=== PATIENT | male | born 1960 | race Caucasian/White ===

== ENCOUNTER 2019-06-20 12:23 | Inpatient (IN) | payer OTHER, SELFPAY ==
[2019-06-20] VITALS (12 sets, daily range): BP systolic 104–141; BP diastolic 58–88; PULSE 55–110; RESP 12–22; TEMP 36.7–39.1; O2SAT 90–97; BMI 31.8; BMI 32.9
[2019-06-20] MEDS: 0.9% Normal Saline 1,000 ML 1000 ML IV (13:15)
[2019-06-20] MEDS: Ondansetron 4 MG/2 ML Vial IV (13:15)
[2019-06-20] MEDS: HYDROmorphone 1 MG/ML Syringe IV (13:15)
[2019-06-20 13:30] LABS: Absolute Lymphocyte Count 0.77 X10^3/uL (0.83-4.51); Absolute Neutrophil Count 10.4 X10^3/uL (2.0-7.7); Basophil# 0.02 X10^3/uL; Basophil% 0.2 % (0-1); Eosinophils% 0.9 % (0-5); Hematocrit 44.8 % (40-54); Hemoglobin 15.2 g/dL (13.0-16.5); Lymphocyte # 0.77 X10^3/ul (4.0); Lymphocyte % 6.6 % (19-41); Mean Corp Hgb Conc 33.9 g/dL (32-36); Mean Corpuscular Hgb 31.7 pg (27.0-32.0); Mean Corpuscular Volume 93.5 fL (80-94); Mean Platelet Vol. 10.7 fl (6.2-12.0); Monocyte# 0.25 X10^3/uL; Monocyte% 2.1 % (0-10); NRBC Flagged by Analyzer 0 % (0-5); Neutrophil # 10.38 X10^3/uL (2.7-7.7); Neutrophil % 89.1 % (47-70); POSITIVE MORPHOLOGY YES; Platelet Count 207 K/mm3 (150-450); RBC Distribution Width CV 13.7 % (11.6-14.6); RBC Distribution Width SD 46.5 fl (35.1-43.9); Red Blood Count 4.79 M/mm3 (4.6-6.2); White Blood Count 11.7 K/mm3 (4.4-11.0)
[2019-06-20 13:34] LABS: AST(SGOT) 26 U/L (15-37); Alanine Aminotransfer ALT/SGPT 37 U/L (16-61); Albumin, Serum 3.7 g/dL (3.2-5.0); Alkaline Phosphatase 84 U/L (45-117); Anion Gap 7 (5-15); BUN 11 mg/dL (7-18); BUN/Creat Ratio 10.8 RATIO (10-20); Bilirubin, Direct 0.44 mg/dL (0.00-0.30); Chloride 101 mmol/L (98-107); Color, Urine Amber (Yellow); Creatinine, Serum 1.02 mg/dL (0.70-1.30); EST Glomerular Filtration Rate 80 mL/min (>60); Est Glom Filt Rate - Afr Amer 97 mL/min (>60); Estimated Creatinine Clearance 94.02 ml/min; Globulin 3.2 g/dL (2.2-4.2); Glucose 163 mg/dL (74-106); Glucose, Dipstick 100 mg/dl (Normal); Ketone-Dipstick 15 mg/dl (Negative); Leukocyte Esterase-Dipstick 25 /ul (Negative); Lipase 36 U/L (73-393); Nitrite-Dipstick Positive (Negative); Occult Blood-Urine 150 /ul (Negative); Potassium 3.7 mmol/L (3.5-5.1); Protein, Total 6.9 g/dL (6.4-8.2); Protein-Dipstick 30 mg/dl (Negative); Sodium Level 135 mmol/L (136-145); Urine Clarity Sl. Cloudy (Clear); Urine Urobilinogen 4 mg/dl (Normal)
[2019-06-20 13:40] LABS: Differential Indicated SCAN CRITERIA MET
[2019-06-20 13:41] LABS: Urine Bilirubin Dipstick 1 mg/dL (Negative)
[2019-06-20 13:48] LABS: Bacteria 2+ /hpf (None Seen); Mucous, Urine 2+ /hpf (<or=2+); Red Blood Cells-Urine 5-10 SEEN /hpf (0-5); Squamous Epithelial Cells - UA 0-5 SEEN /hpf (0-5); White Blood Cells 0-5 SEEN /hpf (0-5)
[2019-06-20 13:50] LABS: Differential Comment SCANNED
[2019-06-20 13:51] LABS: Platelet Estimate ADEQUATE (ADEQ); Red Cell Morphology NORM C+C NORMAL (NORM C&C)
--- NOTE | 2019-06-20 13:59 | US_ITS ---
STUDY: ABDOMINAL ULTRASOUND - RIGHT UPPER QUADRANT REASON FOR VISIT: Male, 58 years old. Right upper quadrant pain. TECHNIQUE: Ultrasound evaluation of the right upper quadrant was performed with real-time and static mcelroy-scale imaging. TECHNICAL QUALITY: Limited. Examination limited by bowel gas. COMPARISON: None. FINDINGS: Liver: The liver measures 17 cm. There is increased echogenicity consistent with fatty infiltration. The bile ducts are within normal limits. There is hepatic color flow. The direction of portal flow is hepatopetal. There is no demonstrated mass lesion. Gallbladder: Normal distended gallbladder. The gallbladder wall is thickened and measures 5.4 mm. There is a negative sonographic Rajput's sign. There is no pericholecystic fluid. There are no gallstones. Findings suggestive of a small gallbladder polyp adherent to the gallbladder wall. Common Bile Duct (C.B.D.): The common bile duct measures 3.0 mm. Pancreas: There is nonvisualization of the pancreas due to overlying bowel gas. There is normal echogenicity of the pancreas. There is no demonstrated pancreatic mass or cyst. Right Kidney: Normal size of the right kidney. The right kidney measures 12.1 cm a 5.6 x 5.9 cm. Normal renal cortex. The right cortex measures 2.0 cm. There is no demonstrated renal mass or cyst. There is no right hydronephrosis. US/Gallbladder IMPRESSION: Fatty attrition of the liver. Thickened gallbladder wall and possible small gallbladder polyp. Electronically Signed: Nacho Sharif, at 15:05 EDT , Service support ,
--- NOTE | 2019-06-20 14:44 | CT_ITS ---
STUDY: CT ABDOMEN AND PELVIS WITHOUT CONTRAST REASON FOR EXAM: Male, 58 years old. Right upper quadrant pain and right flank pain. RADIATION DOSAGE (If Supplied By Facility): CTDIvol = ( 21.9 ) mGy, DLP = ( 1236.67 ) mGycm TECHNIQUE: Transaxial images were obtained from the dome of the diaphragm to the symphysis pubis without oral contrast, and without intravenous contrast. Sagittal and coronal images were reconstructed. Individualized dose optimization techniques were used for this CT. COMPARISON: None. FINDINGS: Increased markings at the lung bases with areas of confluence worse in the right lower lobe suggestive of bibasilar atelectasis and/or infiltrate. The visualized portions of the heart are within normal limits. Normal liver. Inhomogenous appearance of the gallbladder with a thickened wall and increased markings in the surrounding peritoneal fat suggestive of acute cholecystitis. A small amount of pleural fluid is seen in the right upper quadrant. Normal spleen. Mild degree of increased markings in the peripancreatic region suggestive of possible early acute pancreatitis. Normal bilateral adrenal glands. Normal right kidney. Normal left kidney. There is a small hiatal hernia. Normal small intestine. There is evidence of thickening of the right; although it is not adequately distended. There are scattered colonic diverticula consistent with diverticulosis. The appendix measures upper limits of normal. Increased markings are seen in the peritoneal fat surrounding the appendix. Normal abdominal aorta. Normal inferior vena cava. Normal retroperitoneum. Increased markings in the root of the mesentery suggestive of a inflammatory changes most likely from pancreatitis. Increased markings are also seen in the right paracolic gutter. Normal urinary bladder. There is a left-sided inguinal hernia containing adipose tissue. Normal osseous structures. CT/Abdomen/Pelvis without Cont IMPRESSION: Findings suggestive of acute cholecystitis with thickening of the gallbladder wall and increased markings in the surrounding peritoneal fat. Increased markings in the region of the pancreas suggestive of acute pancreatitis. Inflammatory changes in the root of the mesentery extending into the right lower quadrant. Bibasilar atelectasis. Electronically Signed: Nacho Sharif, at 15:23 EDT , Service support ,
--- NOTE | 2019-06-20 14:48 | ED.VISSUMM ---
- ER Visit Summary Date of Service: 06/20/19 Chief Complaint: Right flank and abdominal pain History of Present Illness: The patient is a 58 M who presents the emergency department with a right flank abdominal pain. Patient states that yesterday morning at approximately 0300 hrs. he woke with severe pain. He was vomiting. He went to [facility] where he had blood work and CT scan. states that the only thing that was abnormal was small things in his gallbladder. He went home and had a prescription for pain medication. States that he was fine through most of the day. He did not feel that prescription. Last evening the pain got worse he describes it as being in the right upper quadrant and into the right flank just beneath his rib cage. It does not radiate anywhere. He denies any shortness of breath. No pleuritic pain. No palpitations. Notes nausea. He was up all night with the pain and then today filled the pain medicine prescription which helped a little bit but he still having a significant amount of pain. Physical Examination: Afebrile vital signs are stable Gen: Well-nourished well-developed Head: Normocephalic atraumatic Eyes: Perrl EOMI ENT: TMs clear no rhinorrhea moist mucous membranes Neck: Supple no lymphadenopathy no JVD nontender CVS: Regular rate rhythm no murmurs normal S1-S2 Respiratory: No distress clear to auscultation bilaterally chest nontender Abdomen: Tender to palpation right upper quadrant with guarding and rebound and the right mid axillary right posterior ribs. States that the pain feels deeper than in the ribs. Nondistended normal bowel sounds no masses Back: Nontender Extremity: Nontender no edema Skin: Normal color no rash Neuro: alert orientated ?3 CN II-XII intact normal strength sensation Psych: Normal affect normal mood Test Results: White count 11.7. Glucose 163. Liver enzymes showed a total bilirubin of 1.2 direct bili 0.44. Urinalysis showed 5-10 red blood cells 2+ bacteria positive nitrates positive leukocyte esterase and positive blood. Gallbladder ultrasound was obtained that showed thickened gallbladder wall. No gallstones are noted. No polyp. CT and pelvis was ordered which demonstrates a significant amount of inflammatory changes and most likely is an acute acalculous cholecystitis Emergency Department Course and Treatment: Patient received IV fluids Dilaudid and Zofran. He states that the pain medicine helped a little. Given a dose of morphine after his ultrasound. CT scan was obtained. I discussed the CT results with the radiologist directly. I informed the patient of her findings and discussed the case with Dr. Richardson who is on-call for surgery. I gave the patient Geovanni. Plan is admission Impression: 1. Acute acalculous cholecystitis This note was generated with [employer] dictation software. It may contain incorrect words, spelling, and punctuation that were not noted in review of the chart prior to signing ED Disposition - Plan for ED Patient: Disposition: Acute Care Hospital [facility]
[2019-06-20] MEDS: Morphine 4 MG/ML Syringe IV (14:49)
--- NOTE | 2019-06-20 15:33 | ED.RN ---
DR Kamla ECKERT FOR DR GABRIEL
--- NOTE | 2019-06-20 15:45 | NURSING ---
MED SURG OBS R CEBUL ACUTE ACALCULOUS CHOLECYSTITIS
--- NOTE | 2019-06-20 15:57 | NURSING ---
OR THEN 321 R CEBUL CHOLECYSTITIS
[2019-06-20] MEDS: 0.9% Normal Saline 1,000 ML 200 ML IV (16:01)
--- NOTE | 2019-06-20 16:05 | ED.RN ---
REPORT CALLED TO MILAD IN [facility].
--- NOTE | 2019-06-20 16:28 | HP.PCM_ITS ---
Problem List (1) Acute cholecystitis Status: Acute History of Present Illness Date of Admission: 06/20/19 The patient is a 58 year old M who presents to the [facility] emergency room with a 2-day history of severe intolerable right upper quadrant abdominal pain. Primary care physician is Dr. Vela. By report the patient yesterday morning at 2 in the morning was awakened at night with severe right upper quadrant pain. His was so concerned that he might be having a myocardial infarction that they took him to [facility] emergency room. I do not have any of those specific records other than the patient was evaluated had a CT scan. He was verbally told that they were suspicious he had a gallbladder problem. Apparently no surgeon was involved. The patient was simply instructed to contact his primary care physician within the next couple or 3 days. He continued to have severe pain. Because it was unrelenting he presented to the [facility] emergency room. This occurred at about noon. I was contacted about 4 PM. Laboratory demonstrates a white count 11.7 hemoglobin 15.2 hematocrit 44.8 platelet count of 207,000 with 89% segs. BUN is 11 and a creatinine 1.02. Glucose 163. Lipase 36. AST is 26 now from phosphatase 84 and ALT is 37 with a total bilirubin of 1.2. Urinalysis has positive nitrates. Positive occult blood. Mild leukocyte esterase. Gallbladder ultrasound demonstrates a thickened gallbladder wall greater than 5 mm. Common bile duct is felt to be normal. There is a question of a polyp in the gallbladder. A CT scan was obtained this demonstrates a dramatically abnormal gallbladder with a markedly thickened wall. Dramatic pericholecystic inflammatory changes. Inflammatory changes extend into the root of the mesentery and to the head of the pancreas. The patient states that in the past he had a MRSA infection of her right hand/finger. He received IV dye as contrast to evaluate source of infection. He states that this caused acute renal insufficiency. He states that he instructed the folks at [facility] of this issue. Both his and he stayed that he did receive IV contrast yesterday. He does not recall any special medication prophylaxis. As of 1240 today his BUN was 11 and creatinine 1.02. Past Medical History Allergies Iodinated Contrast Media [CONTRASTS] Adverse Reaction (Verified 06/20/19 12:24) Other Patient developed ATN after administration of IV contrast with underlying normal kidney function (Cr 1.0 before contrast with normal ABP) Home Medications: Ambulatory Orders Medication Instructions Recorded Oxycodone HCl/Acetaminophen 1 - 2 tablet PO 4X/DAY PRN PRN #40 04/14/15 [Percocet 5-325] tablet Acetaminophen [Tylenol Arthritis] 650 mg PO BID PRN PRN 06/20/19 Ondansetron [Zofran Odt] 4 mg PO Q8H PRN PRN 06/20/19 Surgical History: - - left small finger surgery after crush injury. Previous right hand finger surgery for MRSA. Psychiatric History: No pertinent psych hx Smoking Status: Never smoker - *Family History Maternal History Items: No pertinent history Review of Systems Constitutional: Reports: Night Sweats Cardiovascular: Denies: Chest Pain Respiratory: Denies: Cough Gastrointestinal: Reports: Abdominal Pain, - - Abdominal bloating distention. Severe abdominal pain Genitourinary: Denies: Dysuria Skin: Denies: Jaundice Endocrine: Denies: Change in Body Habitus VTE Information - Inpt Only VTE Present on Admission: No Patient Problems: Active and Suspected Problems Acute cholecystitis (Acute) - Physical Exam General: Alert, Oriented x3, - - Patient appears to be acutely severely ill taking short shallow breaths with a markedly tender distended abdomen HEENT: Atraumatic Oral: Dry Mucosa Neck: Supple Lungs: Clear to auscultation - Apices are clear to auscultation, diminished breath sounds bibasilarly Cardiovascular: Regular rate, Regular Rhythm Abdomen: Bowel Sounds Not Present, Distended, Obese, Tender Extremities: No Calf Tenderness Skin: No rashes Neurological: - - Cognition intact Psych/Mental Status: Normal Affect Vital Signs Temp Pulse Resp BP Pulse Ox 99.3 F H 104 H 17 133/78 H 92 06/20/19 16:00 06/20/19 16:00 06/20/19 16:00 06/20/19 16:00 06/20/19 16:00 Oxygen Delivery Method Room Air Weight: 248 lb Body Mass Index (BMI) 31.8 Laboratory Tests Past 24 Hrs 06/20/19 06/20/19 06/20/19 12:40 12:40 12:40 WBC 11.7 H RBC 4.79 Hgb 15.2 Hct 44.8 MCV 93.5 MCH 31.7 MCHC 33.9 RDW Std Deviation 46.5 H RDW Coeff of Mariola 13.7 Plt Count 207 MPV 10.7 Immature Gran % (Auto) 1.100 H Neut % (Auto) 89.1 H Lymph % (Auto) 6.6 L Alger % (Auto) 2.1 Eos % (Auto) 0.9 Baso % (Auto) 0.2 Absolute Neuts (auto) 10.4 H Absolute Lymphs (auto) 0.77 L Nucleated RBC % 0 Differential Comment SCANNED Platelet Estimate ADEQUATE RBC Morphology NORM C+C Sodium 135 L Potassium 3.7 Chloride 101 Carbon Dioxide 27.0 Anion Gap 7 BUN 11 Creatinine 1.02 Estim Creat Clear Calc 94.02 Est GFR (MDRD) Af Amer 97 Est GFR (MDRD) Non-Af 80 BUN/Creatinine Ratio 10.8 Glucose 163 H Calcium 9.0 Total Bilirubin 1.20 H Direct Bilirubin 0.44 H AST 26 ALT 37 Alkaline Phosphatase 84 Total Protein 6.9 Albumin 3.7 Globulin 3.2 Lipase 36 L Urine Color Jade Urine Clarity Sl. Cloudy Urine pH 6.0 Ur Specific Waka 1.020 Urine Protein 30 H Urine Glucose (UA) 100 H Urine Ketones 15 H Urine Occult Blood 150 H Urine Nitrite Positive H Urine Bilirubin 1 H Urine Urobilinogen 4 H Ur Leukocyte Esterase 25 H Urine RBC 5-10 SEEN Urine WBC 0-5 SEEN Ur Squamous Epith Cells 0-5 SEEN Urine Bacteria 2+ Urine Mucus 2+ Assessment/Plan All Active Problems Acute cholecystitis (Acute) Acute renal insufficiency (Acute) MRSA infection (Acute) right ring finger infection (Acute) Tenosynovitis of finger (Acute) 58-year-old gentleman who presents with findings consistent with severe acute cholecystitis. There is so much swelling and edema it is difficult to decipher whether this is calculus or acalculous. The degree of pericholecystic cystic inflammation is significant. At this time of day radiology is no longer available to assist with percutaneous drainage. I do not believe that this patient will perform well with simple antibiotic conservative treatment. I am recommending to him an attempt at a laparoscopic cholecystectomy with selective cholangiograms and I have discussed in great detail that the technique, benefits, risks, alternatives. We have specifically discussed the potential risk of injury to the common bile duct. We discussed potential need to convert to an open procedure. We have discussed the inability of doing a complete cholecystectomy. He has had an opportunity to ask and have questions answered. This patient appears to be so ill I believe that proceeding tonight with operative intervention is pertinent. He has had an opportunity to ask and have questions answered. We will proceed once the scheduled OR cases complete. Gagan Richardson M.D., F.A.C.S.
--- NOTE | 2019-06-20 16:30 | EKG12_ITS ---
Test Reason : PREOP Blood Pressure : / mmHG Vent. Rate : 109 BPM Atrial Rate : 110 BPM P-R Int : 142 ms QRS Dur : 086 ms QT Int : 314 ms P-R-T Axes : 041 032 042 degrees QTc Int : 422 ms Sinus tachycardia Otherwise normal ECG No previous ECGs available Confirmed by LAITH ALEXIS ([id number]), commercial production editor SUSIE SIM ([id number]) on 06/22/2019 2:52:17 PM Referred By: Gagan Richardson Confirmed By:LAITH ALEXIS
--- NOTE | 2019-06-20 16:40 | GALL_PTH ---
PATIENT: GHISLAINE DE LA CRUZ LOC: MS3 U#:[id number] AGE/SX: 58/M ROOM: MS321 RE06/20/[address]: Dr. Gagan Richardson MD : [id number] BED: 1 DIS: 06/23/2019 SPEC #: [id number] RECD: 06/21/19 08:47 STATUS: GISELLE GOVEA #: [id number] PANTERA: 06/20/19 16:[address]: Gagan Richardson DEPT: SURGICAL PATHOLOGY RECD BY: Sim Hurst ENTERED: 06/21/19 09:38 SP TYPE: FELICITY CASTELLON DR: Dr. Kenneth Vela MD Tissues: Gallbladder, NOS Procedures: Surgery Specimen Level III HEADER OPERATION: Laparoscopic cholecystectomy with IOC PRE-OP DIAGNOSIS: Acute cholecystitis TISSUE SUBMITTED: Gallbladder MICROSCOPIC DIAGNOSIS Gallbladder, cholecystectomy: Acute and chronic ulcerated, hemorrhagic and necrotizing cholecystitis. No stones are identified in the container or in the gallbladder. DEISY:ghassan 06/22/19 MICROSCOPIC DESCRIPTION Slides are reviewed. GROSS DESCRIPTION Received is one container labeled with the patient's name and designated gallbladder. The specimen consists of a gallbladder measuring 11 cm in length and up to 6 cm in diameter. The external surface is markedly congested and hemorrhagic. The gallbladder contains bloody fluid and multiple blood clots. No?stones are identified in the container or in the gallbladder. The mucosa is markedly congested, hemorrhagic and ulcerated. The gallbladder wall measures up to 1 cm in thickness. Sectioning of the gallbladder wall reveal congested and hemorrhagic cut surfaces. Restaurant District Manager sections from the gallbladder and the cystic duct are submitted in two cassettes. / DEISY:ghassan 06/21/19 TC:4 CPT: 59810
[2019-06-20] MEDS: Bupivacaine Mpf 0.5% 30 ML VIAL (18:30)
--- NOTE | 2019-06-20 18:50 | PCM.OPRPT ---
Problem List (1) Acute cholecystitis Status: Acute Report of Operation Date of Procedure: 06/20/19 Pre-Operative Diagnosis: Acute cholecystitis Post-Operative Diagnosis: Acute gangrenous cholecystitis Surgery/Procedure Performed:: Laparoscopic cholecystectomy Description of Surgical Findings:: Timeout and informed consent was obtained. 58-year-old critically ill gentleman was taken to the operating room. He presented with an acute surgical abdomen is and finding consistent with severe acute cholecystitis. Zosyn 4.5 g were given intravenously in the emergency room. He was taken to the operative underwent general endotracheal sedation anesthesia. The abdomen was sterilely prepped and draped. A supraumbilical incision was created holding sutures of 0 Vicryl placed a direct incision was made vertically in the fascia direct access was obtained a Love catheter inserted no evidence of any trocar injuries the abdomen was grossly distended is consistent with severe ileus. Final trochars were placed in the epigastric area right upper quadrant right lateral upper quadrant. In the middle of the procedure and additional 5 mm trochars placed in the lateral right upper quadrant. On inspection there was adherence of the omentum to gallbladder upon releasing this the gallbladder in multiple areas were black consistent with. I bluntly dissected the omentum free but due to the ileus had trouble visualizing it so I put a liver retractor in 25 Barrow reports laterally and use that to help hold the omentum down. Much of the dissection was done bluntly with aqua dissection and suction. I was able to dissect free the infundibular area but was not able to clearly initially identify the cystic duct cystic artery so I elected to do a dome down approach. The gallbladder actually had quite a edema plane I was able to use the suction and some blunt dissection to dissected free from the liver bed. Were needed hemo-lock clips were used for hemostasis. I was able to dissect that down and then worked my way down tediously. I placed that extra 5 Barrow port in the right upper quadrant used a second liver retractor to help hold the liver up so using a liver retractor to elevate the liver and another liver retractor to help hold the transverse colon and omentum inferiorly I was able to gradually free the gallbladder until I was left with only the cystic artery and cystic duct. Unfortunately the cystic duct appeared to be only partially healthy with some pregangrenous changes. I did not feel comfortable trying to dissect any closer to where the common bile duct would like at this in this situation obviously could not be cleanly identified. I cleanly had the cystic duct identified however. I put 2 hemo-lock clips proximally one distally on the cystic artery transected it. I put a 5 mm clip across the cystic duct and then I put 2 large hemo-lock clips across the cystic duct and transected that. I placed the gallbladder was in a retrieval bag. The right upper quadrant was irrigated and aspirated free of excess fluid.. Estimated blood loss was 350 cc. The liver had stopped bleeding. I placed 2 pieces of fibrillar in the liver bed. Through 1 of the right upper quadrant port sites I placed a 15 round YESI drain assured to the length and secured to the skin with 3-0 nylon placed in the subhepatic space. Now I removed the gallbladder at the supraumbilical site however both the skin and fascia incisions had to be significantly lengthened due to the significant size of the gallbladder. I was able to remove it. The fascia was then closed with a running 0 PDS. I inspected that closure from internally noted to be intact. I then finally remove the final ports. Skin edges were approximated with interrupted 4-0 Monocryl subdermal stitches. Steri-Strips Telfa and OpSite dressings applied. Sponge and instrument and needle counts were reported the surgeon to be correct. Specimen includes gallbladder. Drains a #15 round YESI. Blood loss 350 cc. He was taken to the recovery area in satisfactory condition without apparent complication. Gagan Richardson M.D., F.A.C.S. Type of Anesthesia:: General Anesthesiologist: Marlee Jo
[2019-06-21] VITALS (7 sets, daily range): BP systolic 104–110; BP diastolic 61–71; PULSE 77–103; RESP 16–20; TEMP 36.9–37.8; O2SAT 93–95
[2019-06-21 05:19] LABS: Absolute Lymphocyte Count 1.01 X10^3/uL (0.83-4.51); Absolute Neutrophil Count 9.3 X10^3/uL (2.0-7.7); Basophil# 0.01 X10^3/uL; Basophil% 0.1 % (0-1); Hematocrit 34.9 % (40-54); Hemoglobin 11.7 g/dL (13.0-16.5); Lymphocyte # 1.01 X10^3/ul (4.0); Lymphocyte % 9.4 % (19-41); Mean Corp Hgb Conc 33.5 g/dL (32-36); Mean Corpuscular Hgb 31.5 pg (27.0-32.0); Mean Corpuscular Volume 93.8 fL (80-94); Mean Platelet Vol. 10.2 fl (6.2-12.0); Monocyte# 0.25 X10^3/uL; Monocyte% 2.3 % (0-10); NRBC Flagged by Analyzer 0 % (0-5); Neutrophil % 86.8 % (47-70); POSITIVE MORPHOLOGY YES; Platelet Count 166 K/mm3 (150-450); RBC Distribution Width CV 13.9 % (11.6-14.6); Red Blood Count 3.72 M/mm3 (4.6-6.2); White Blood Count 10.7 K/mm3 (4.4-11.0)
[2019-06-21 05:21] LABS: Differential Indicated SCAN CRITERIA MET
[2019-06-21] MEDS: HYDROmorphone 1 MG/ML Syringe IV (05:21)
[2019-06-21] MEDS: 0.9% NaCl Peripheral Flush Adult/Peds IV (05:21)
[2019-06-21 05:40] LABS: BUN 15 mg/dL (7-18); Creatinine, Serum 1.03 mg/dL (0.70-1.30); Estimated Creatinine Clearance 93.11 ml/min; Glucose 135 mg/dL (74-106)
[2019-06-21 05:41] LABS: ALB/GLOB Ratio 0.8 RATIO (0.9-2.4); AST(SGOT) 31 U/L (15-37); Alanine Aminotransfer ALT/SGPT 40 U/L (16-61); Albumin, Serum 2.4 g/dL (3.2-5.0); Alkaline Phosphatase 60 U/L (45-117); Anion Gap 5 (5-15); BUN/Creat Ratio 14.6 RATIO (10-20); Chloride 106 mmol/L (98-107); EST Glomerular Filtration Rate 79 mL/min (>60); Est Glom Filt Rate - Afr Amer 96 mL/min (>60); Globulin 3.2 g/dL (2.2-4.2); Potassium 4.2 mmol/L (3.5-5.1); Protein, Total 5.6 g/dL (6.4-8.2); Sodium Level 138 mmol/L (136-145)
--- NOTE | 2019-06-21 05:50 | PCM.PN.SRG ---
Patient Problems: Active and Suspected Problems Acute cholecystitis (Acute) Subjective: Pt is much less painful then on admission No flatus - Physical Exam Lungs: Clear to auscultation Abdomen: Bowel Sounds Not Present - YESI liquid dark output, Distended Vital Signs Temp Pulse Resp BP Pulse Ox 98.4 F 103 H 18 106/61 94 06/21/19 03:00 06/21/19 03:00 06/21/19 03:00 06/21/19 03:00 06/21/19 03:00 Oxygen Flow Rate (L/min) 2.5 Oxygen Delivery Method Nasal Cannula Weight: 256 lb 9.889 oz Body Mass Index (BMI) 32.9 Intake and Output for Last 24 Hours 06/19/19 06/20/19 06/21/19 23:59 23:59 23:59 Intake Total 1999 200 / 200 Output Total Balance 1969 / 2169 178 / 178 Laboratory Tests Past 24 Hrs 06/20/19 06/20/19 06/20/19 12:40 12:40 12:40 WBC 11.7 H RBC 4.79 Hgb 15.2 Hct 44.8 MCV 93.5 MCH 31.7 MCHC 33.9 RDW Std Deviation 46.5 H RDW Coeff of Mariola 13.7 Plt Count 207 MPV 10.7 Immature Gran % (Auto) 1.100 H Neut % (Auto) 89.1 H Lymph % (Auto) 6.6 L [place] % (Auto) 2.1 Eos % (Auto) 0.9 Baso % (Auto) 0.2 Absolute Neuts (auto) 10.4 H Absolute Lymphs (auto) 0.77 L Nucleated RBC % 0 Differential Comment SCANNED Platelet Estimate ADEQUATE RBC Morphology NORM C+C Sodium 135 L Potassium 3.7 Chloride 101 Carbon Dioxide 27.0 Anion Gap 7 BUN 11 Creatinine 1.02 Estim Creat Clear Calc 94.02 Est GFR (MDRD) Af Amer 97 Est GFR (MDRD) Non-Af 80 BUN/Creatinine Ratio 10.8 Glucose 163 H Calcium 9.0 Total Bilirubin 1.20 H Direct Bilirubin 0.44 H AST 26 ALT 37 Alkaline Phosphatase 84 Total Protein 6.9 Albumin 3.7 Globulin 3.2 Albumin/Globulin Ratio Lipase 36 L Urine Color Jade Urine Clarity Sl. Cloudy Urine pH 6.0 Ur Specific [place] 1.020 Urine Protein 30 H Urine Glucose (UA) 100 H Urine Ketones 15 H Urine Occult Blood 150 H Urine Nitrite Positive H Urine Bilirubin 1 H Urine Urobilinogen 4 H Ur Leukocyte Esterase 25 H Urine RBC 5-10 SEEN Urine WBC 0-5 SEEN Ur Squamous Epith Cells 0-5 SEEN Urine Bacteria 2+ Urine Mucus 2+ 06/21/19 06/21/19 04:55 04:55 WBC 10.7 RBC 3.72 L Hgb 11.7 L Hct 34.9 L MCV 93.8 MCH 31.5 MCHC 33.5 RDW Std Deviation 47.0 H RDW Coeff of Mariola 13.9 Plt Count 166 MPV 10.2 Immature Gran % (Auto) 1.400 H Neut % (Auto) 86.8 H Lymph % (Auto) 9.4 L [place] % (Auto) 2.3 Eos % (Auto) 0.0 Baso % (Auto) 0.1 Absolute Neuts (auto) 9.3 H Absolute Lymphs (auto) 1.01 Nucleated RBC % 0 Differential Comment Platelet Estimate RBC Morphology Sodium 138 Potassium 4.2 Chloride 106 Carbon Dioxide 27.0 Anion Gap 5 BUN 15 Creatinine 1.03 Estim Creat Clear Calc 93.11 Est GFR (MDRD) Af Amer 96 Est GFR (MDRD) Non-Af 79 BUN/Creatinine Ratio 14.6 Glucose 135 H Calcium 8.0 L Total Bilirubin 1.10 H Direct Bilirubin AST 31 ALT 40 Alkaline Phosphatase 60 Total Protein 5.6 L Albumin 2.4 L Globulin 3.2 Albumin/Globulin Ratio 0.8 L Lipase Urine Color Urine Clarity Urine pH Ur Specific [place] Urine Protein Urine Glucose (UA) Urine Ketones Urine Occult Blood Urine Nitrite Urine Bilirubin Urine Urobilinogen Ur Leukocyte Esterase Urine RBC Urine WBC Ur Squamous Epith Cells Urine Bacteria Urine Mucus Medical Necessity - Tobacco Use Smoking Status: Never smoker Assessment/Plan All Active Problems Acute cholecystitis (Acute) Acute renal insufficiency (Acute) MRSA infection (Acute) right ring finger infection (Acute) Tenosynovitis of finger (Acute) Will start clears but pt has significant ileus intra operatively Higher risk for bile leak b/o necrotic cystic duct Will leave YESI --nursing reports it needs repair Continue IV antibiotics and mobilize pt
[2019-06-21] MEDS: Lactated Ringers 1,000 ML 70 ML IV ×2 (06:16→17:45)
[2019-06-21] MEDS: Enoxaparin 40 MG/0.4 ML Syringe SC (10:41)
[2019-06-21] MEDS: HYDROmorphone 0.5 MG/0.5 ML SYRINGE IV (10:50)
--- NOTE | 2019-06-21 11:10 | CASEMGMT ---
RN ANGELA Face to Face with patient for initial transition planning/care coordination assessment. RN CM introduced self and role at [facility]. Patient lying in bed, alert and oriented. Patient willing to participate in assessment and is able to answer all questions appropriately. Care providers, pharmacy, and demographics verified. Patient wishes to discharge home, denies need for home health at this time. Patient states he has no further needs or concerns at this time. CM to follow for discharge planning needs that may arise. PCP: Dane Specialists: None Preferred Pharmacy: [facility] Insurance: [facility] Prescription Benefit: yes Living Will/HPOA: none LNOK: Living Arrangements: Patient lives with in 1 story home with 2 steps to enter the home. Patient is independent at home. Transportation: self/ DME/HHC: Patient denies any DME or previous HHC. Disposition Plan: Patient to discharge home with family support and follow-up plans in place. Radha HARE, RN, CM
[2019-06-21] MEDS: Acetaminophen 325 MG Tablet 650 MG PO (17:45)
[2019-06-22] MEDS: Acetaminophen 325 MG Tablet 650 MG PO ×2 (00:04→08:49)
[2019-06-22 02:50] VITALS: BP 113/69; PULSE 80; RESP 20; TEMP 37; O2SAT 94
--- NOTE | 2019-06-22 06:06 | PCM.PN.SRG ---
Patient Problems: Active and Suspected Problems Acute cholecystitis (Acute) Subjective: No flatus, better comfort. Hungry. No fever - Physical Exam Lungs: Clear to auscultation Abdomen: Soft, Hypoactive Bowel Sounds, Distended - YESI darker output Vital Signs Temp Pulse Resp BP Pulse Ox 98.6 F 80 20 H 113/69 94 06/22/19 02:50 06/22/19 02:50 06/22/19 02:50 06/22/19 02:50 06/22/19 02:50 Oxygen Flow Rate (L/min) 2.5 Oxygen Delivery Method Room Air Weight: 256 lb 9.889 oz Body Mass Index (BMI) 32.9 Intake and Output for Last 24 Hours 06/20/19 06/21/19 06/22/19 23:59 23:59 23:59 Intake Total 1999 2378 / 3162 1374 / 1374 Output Total 162 / 182 40 / 40 Balance 1969 / 2169 2216 / 2980 1334 / 1334 Microbiology Past 72 Hours 06/20/19 19:10 Gram Stain - Final Aspirate - Other Medical Necessity - Tobacco Use Smoking Status: Never smoker Assessment/Plan All Active Problems Acute cholecystitis (Acute) Acute renal insufficiency (Acute) MRSA infection (Acute) right ring finger infection (Acute) Tenosynovitis of finger (Acute) Will advance diet Might consider home with YESI inplace and on oral Ab Continue care for now
[2019-06-22 07:42] VITALS: BP 119/68; PULSE 71; RESP 18; TEMP 36.6; O2SAT 98
[2019-06-22] MEDS: Lactated Ringers 1,000 ML 30 ML IV (07:45)
[2019-06-22] MEDS: Enoxaparin 40 MG/0.4 ML Syringe SC (10:05)
[2019-06-22 15:09] VITALS: BP 138/81; PULSE 69; RESP 18; TEMP 36.7; O2SAT 96
[2019-06-22 21:36] VITALS: BP 125/66; PULSE 67; RESP 16; TEMP 37.2; O2SAT 95
[2019-06-22 21:40] VITALS: PULSE 67; RESP 16; O2SAT 95
[2019-06-22] MEDS: HYDROcodone Bitartrate/Apap 5/325 Tablet PO (21:47)
[2019-06-23 03:28] VITALS: BP 118/78; PULSE 69; RESP 16; TEMP 37.1; O2SAT 95
--- NOTE | 2019-06-23 05:32 | PCM.PN.SRG ---
Patient Problems: Active and Suspected Problems Acute cholecystitis (Acute) Subjective: Flatus early this am. - Physical Exam Lungs: Clear to auscultation Abdomen: Soft, Non Tender - YESI serosanquious, Hypoactive Bowel Sounds Vital Signs Temp Pulse Resp BP Pulse Ox 98.7 F 69 16 118/78 95 06/23/19 03:28 06/23/19 03:28 06/23/19 03:28 06/23/19 03:28 06/23/19 03:28 Oxygen Flow Rate (L/min) 2.5 Oxygen Delivery Method Room Air Weight: 256 lb 9.889 oz Body Mass Index (BMI) 32.9 Intake and Output for Last 24 Hours 06/21/19 06/22/19 06/23/19 23:59 23:59 23:59 Intake Total 2378 / 3162 2803 / 3497 928 / 928 Output Total 162 / 182 60 / 80 65 / 65 Balance 2216 / 2980 2743 / 3417 863 / 863 Microbiology Past 72 Hours 06/20/19 19:10 Gram Stain - Final Aspirate - Other Wound Culture - Preliminary No growth-Final to follow Medical Necessity - Tobacco Use Smoking Status: Never smoker Assessment/Plan All Active Problems Acute cholecystitis (Acute) Acute renal insufficiency (Acute) MRSA infection (Acute) right ring finger infection (Acute) Tenosynovitis of finger (Acute) Will discharge with YESI in place with appt in office Wednesday for removal Excellent progress
--- NOTE | 2019-06-23 05:38 | DCINST_ITS ---
Discharge Diet: Light diet - advance as tolerated - if you have questions about your diet instructions, please talk to you doctor. Discharge Activity: May Not Drive - for 1 week or while taking narcotic pain medicine. May shower in (days): 4 - May shower on Wednesday Lifting Restrictions: 10 pounds Call your doctor if your incision/area has: Continuous Slow Oozing, Sudden Increased Bleeding, Increased Pain/ Swelling, Increased Redness, Foul Smelling Discharge Call your doctor if you observe: Fever of 101 or Higher Suture Line Care: Avoid Pulling/Pushing, Avoid Pinching/Bending Additional Dressing/Incision Instructions:: Drain care as instructed and bring list of drain amount to office appt. Wednesday please. Daily cleanse site with q- tip and peroxide and dry gauze dress. May remove other plastic dressings on Wednesday. Leave steri strips for one week Allergies/Adverse Reactions: Allergies Iodinated Contrast Media [CONTRASTS] Adverse Reaction (Verified 06/20/19 12:24) Other Patient developed ATN after administration of IV contrast with underlying normal kidney function (Cr 1.0 before contrast with normal ABP) Medications to take at Discharge Oxycodone HCl/Acetaminophen [Percocet 5-325] 1 - 2 tablet PO 4X/DAY PRN PRN #40 tablet 04/14/15 Acetaminophen [Tylenol Arthritis] 650 mg PO BID PRN PRN 06/20/19 Ondansetron [Zofran Odt] 4 mg PO Q8H PRN PRN 06/20/19 Amoxicillin/Potassium Clav [Augmentin 875-125 Tablet] 1 ea PO BID #6 tab 06/23/19 The following prescriptions were given: Amoxicillin/Potassium Clav [Augmentin 875-125 Tablet] 1 ea PO BID #6 tab Transmission Status: Pending to [facility] Primary Care Physician: Kenneth Vela MD [Primary Care Provider] - Test Results: Test results from this visit will be discussed in further detail at your follow- up appointment, if applicable. Please Follow Up With: Gagan Richardson MD - [phone] When: Call to make an appointment to be seen on Wednesday06/26/19
[2019-06-23 09:15] VITALS: BP 115/77; PULSE 75; RESP 18; TEMP 37; O2SAT 97
[2019-06-23 11:45] VITALS: BP 115/77; PULSE 75; RESP 18; TEMP 37; O2SAT 97
--- NOTE | 2019-06-26 06:52 | DS.PCM_ITS ---
Discharge Date and Diagnosis Date of Admission: 06/20/19 Date of Discharge: 06/23/19 - Primary Discharge Diagnosis Acute gangrenous cholecystitis Hospital Course and Treatment Operations: cholecystecomy Summary of Care Provided: The patient is a 58 year old M who presents with severe abdominal pain. Dr. Richardson performed a laparoscopic cholecystectomy on 06/20/19. Patient tolerated the procedure well. Patient had an uncomplicated hospitalization. Upon discharge, patient was tolerating a diet well. He denied nausea, vomiting, fever. YESI drain remained intact and patient was discharged to home with the drain. He is also to take oral antibiotics. - Physical Exam General: Alert, Oriented x3, Cooperative Abdomen: Bowel Sounds Present, Soft, Non Tender, Obese, - - Incisions c/d/i. No erythema or infection noted. YESI drain intact Vital Signs Temp Pulse Resp BP Pulse Ox 98.6 F 75 18 115/77 97 06/23/19 11:45 06/23/19 11:45 06/23/19 11:45 06/23/19 11:45 06/23/19 11:45 Oxygen Flow Rate (L/min) 2.5 Oxygen Delivery Method Room Air Weight: 256 lb 9.889 oz Body Mass Index (BMI) 32.9 Microbiology Past 72 Hours 06/20/19 19:10 Gram Stain - Final Aspirate - Other Wound Culture - Final No growth aerobically. Anaerobic Culture - Preliminary No growth in 48 hours. Discharge Diet: Light diet - advance as tolerated - if you have questions about your diet instructions, please talk to you doctor. Discharge Activity: May Not Drive - for 1 week or while taking narcotic pain medicine. May shower in (days): 4 - May shower on Wednesday Call your doctor if your incision/area has: Continuous Slow Oozing, Sudden Increased Bleeding, Increased Pain/ Swelling, Increased Redness, Foul Smelling Discharge Call your doctor if you observe: Fever of 101 or Higher Suture Line Care: Avoid Pulling/Pushing, Avoid Pinching/Bending Additional Dressing/Incision Instructions:: Drain care as instructed and bring list of drain amount to office appt. Wednesday please. Daily cleanse site with q- tip and peroxide and dry gauze dress. May remove other plastic dressings on Wednesday. Leave steri strips for one week Home Medications: Medications to take at Discharge Oxycodone HCl/Acetaminophen [Percocet 5-325] 1 - 2 tablet PO 4X/DAY PRN PRN #40 tablet 04/14/15 Acetaminophen [Tylenol Arthritis] 650 mg PO BID PRN PRN 06/20/19 Ondansetron [Zofran Odt] 4 mg PO Q8H PRN PRN 06/20/19 Amoxicillin/Potassium Clav [Augmentin 875-125 Tablet] 1 ea PO BID #6 tab 06/23/19 Following Prescrptions Were Given to Patient: Amoxicillin/Potassium Clav [Augmentin 875-125 Tablet] 1 ea PO BID #6 tab Transmission Status: Received by [facility] Primary Care Physician: Kenneth Vela MD [Primary Care Provider] - Please Follow Up With: Gagan Richardson MD - [phone] When: Call to make an appointment to be seen on Wednesday06/26/19 Disposition: Home Minutes spent on discharge:: 20 Patient Condition:: Stable Medical Necessity - Tobacco Use Smoking Status: Never smoker Meaningful Use Info Meaningful Use Diagnoses (Choose all that apply): None applicable Code Visit Inpatient E&M: 18792 Disch Hosp - No charge
== END 2019-06-23 11:44 | disposition home or self-care (01) | DRG 418 ==
LOC: ED 15:50 → SDC 16:02 → MS3 16:04 → SDC 22:54
PROVIDERS: Admitting Provider Surgery; Emergency Provider Emergency Medicine; Family Provider Family Medicine; PCP Family Medicine; Referring Provider Surgery; Visit Provider Surgery
PROC: 0FT44ZZ Resection of Gallbladder, Percutaneous Endoscopic Approach (ICD-10-PCS; CPT 47610; principal; 2019-06-20 16:20)
DX: K81.0 Acute cholecystitis (principal); K56.7 Ileus, unspecified; K82.A1 Gangrene of gallbladder in cholecystitis
CPT/HCPCS: 36415; 74176; 76705; 80048; 80053; 80076; 81001; 83690; 85025; 87070; 87075; 87205; 88304; 93005; 97802; 99284; J7030; J7120; A4216; J2405

== ENCOUNTER 2019-12-06 15:11 | Observation (INO) | payer OTHER, SELFPAY ==
[2019-06-26 14:15] VITALS: BMI 32.9
[2019-12-06] VITALS (10 sets, daily range): BP systolic 92–146; BP diastolic 56–87; PULSE 48–151; RESP 13–18; TEMP 35.5–36.8; O2SAT 92–98; BMI 33.4; BMI 33.3
--- NOTE | 2019-12-06 15:43 | EKG12_ITS ---
Test Reason : AFIB Blood Pressure : / mmHG Vent. Rate : 100 BPM Atrial Rate : 119 BPM P-R Int : 000 ms QRS Dur : 088 ms QT Int : 346 ms P-R-T Axes : 000 012 061 degrees QTc Int : 446 ms Atrial fibrillation Abnormal ECG Confirmed by SALONI SOMERS, JULIEN ([id number]), purchase request editor MEERA HIGGINS ([id number]) on 12/08/2019 1:07:01 PM Referred By: HARVEY Confirmed By:IDANIA GUALLPA MD
--- NOTE | 2019-12-06 15:45 | ED.DCSUM_ITS ---
History of Present Illness Chief Complaint: Palpitations Narrative: Patient states that Wednesday around 3 AM he began to feel badly. 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 He states around 3 AM it started suddenly. He took yesterday off of work today went to see his primary care physician where he was found to be in new onset atrial fibrillation. Patient does not take any prescription medications and states that he is otherwise a very healthy individual. He denies any chest pain or shortness of breath. He drinks 2 maybe 3 Mountain Dew's per day. Otherwise no caffeine. Non-smoker. Past Medical History - Allergies and Home Meds Allergies/Adverse Reactions: Allergies Iodinated Contrast Media [CONTRASTS] Adverse Reaction (Verified 12/06/19 15:15) Other Patient developed ATN after administration of IV contrast with underlying normal kidney function (Cr 1.0 before contrast with normal ABP) Primary Care Physician: Jarrell Mansfield MD [STAFF PHYSICIAN] - As soon as possible Surgical History: - - left small finger surgery after crush injury. Previous right hand finger surgery for MRSA. Smoking Status: Never smoker - Family History Maternal Family History: Reports: No pertinent history Review of Systems General: Denies: Chills, Fever, Malaise, Sweats Eyes: Denies: Visual changes - bilaterally, Diplopia ENT: Denies: Rhinorrhea, Sore throat Cardiovascular: Denies: Chest pain, Palpitations Respiratory: Denies: Dyspnea, Cough, Dyspnea on exertion Gastrointestinal: Denies: Abdominal pain, Nausea, Vomiting, Diarrhea, Melena, Hematochezia Genitourinary: Denies: Dysuria, Hematuria, Frequency Musculoskeletal: Denies: Back pain, Extremity Pain Skin: Denies: Rash, Wounds Neurological: Denies: Headache, Weakness, Numbness Physical Exam Vital Signs/Narrative: Vital Signs Temp Pulse Resp BP Pulse Ox 12/06/19 15:12 97.7 F L 48 L 13 146/78 H 96 Inital Vital Signs reviewed: Yes General: Well nourished, Well developed, No Acute Distress Head: Normocephalic, Atraumatic Eyes: Perrl, EOMI ENT: Moist mucous membranes, No rhinorrhea Neck: Supple, Nontender Cardiovascular: No murmurs, Irregular, Tachycardia Respiratory: No distress, CTA bilaterally, Chest nontender Abdomen: Soft, Nontender, Nondistended, Normal bowel sounds Back: Nontender, Normal Inspection Extremities: Nontender, No edema Skin: Normal color, No rash Neurological: Alert, Oriented x3, Cranial nerves II-XII grossly intact, Normal Strength, Normal Sensation Psychological: Normal affect, Normal Mood Diagnostic/Tx/Re-eval - Rhythm Strip Rhythm Strip: A-fib Rate: 100 - Medical Decision Making 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 Patient received 10 mg of Cardizem IV and his heart rate has decreased to a rate of 70-90. Basic labs including magnesium TSH and troponin were normal. Case was discussed with Dr. Mansfield. At this point our plan is to place him on Cardizem CD 120 as well as Xarelto. When I went back to discuss this with him and his she informed me that he was experiencing some back pain and felt like his lungs were hurting to breathe. She tells me that is why they went to the doctor.. Therefore a CTA of his chest was ordered. Unfortunately the patient now states that he developed ATN in the past after IV contrast. Therefore as it is after 5:00 and I cannot get a VQ scan patient will be admitted for VQ scan and we can continue to monitor his rate on the oral medication while he is kept overnight. ED Disposition - Plan for ED Patient: Diagnosis: New onset atrial fibrillation Instructions: Atrial Fibrillation Referrals: Jarrell Mansfield MD [STAFF PHYSICIAN] - As soon as possible
--- NOTE | 2019-12-06 15:47 | RAD_ITS ---
STUDY: X-RAY CHEST REASON FOR EXAM: Male, 58 years old. NEW ONSET AFIB TECHNIQUE: Single AP portable view of the chest. COMPARISON: None. FINDINGS: EKG electrodes are seen. Mild increased markings at the left lung base suggestive of linear atelectasis and/or scarring. There is no demonstrated pleural abnormality. Normal size heart. Normal mediastinum and leann. Normal visualized pulmonary arteries. Normal visualized aortic arch and descending thoracic aorta. Normal visualized thoracic spine. Normal visualized ribs, clavicles, and shoulders. There is no demonstrated abnormality of the visualized soft tissue structures of the upper abdomen. RAD/Chest 1 View (Portable) IMPRESSION: Mild increased linear markings at the left lung base suggestive of linear atelectasis and/or scarring. Electronically Signed: Nacho Sharif, at 16:01 EST , Service support ,
[2019-12-06] MEDS: Aspirin 81 MG TAB.CHEW 324 MG PO (15:52)
[2019-12-06] MEDS: dilTIAZem 25 MG/5 ML Vial 10 MG IV BOLUS (15:52)
[2019-12-06 16:00] LABS: Absolute Lymphocyte Count 3.14 X10^3/uL (0.83-4.51); Absolute Neutrophil Count 2.5 X10^3/uL (2.0-7.7); Basophil# 0.04 X10^3/uL; Basophil% 0.7 % (0-1); Eosinophil# 0.09 X10^3/uL; Eosinophils% 1.5 % (0-5); Hematocrit 46.9 % (40-54); Hemoglobin 15.6 g/dL (13.0-16.5); Lymphocyte # 3.14 X10^3/ul (4.0); Lymphocyte % 51.3 % (19-41); Mean Corp Hgb Conc 33.3 g/dL (32-36); Mean Corpuscular Hgb 30.9 pg (27.0-32.0); Mean Corpuscular Volume 92.9 fL (80-94); Mean Platelet Vol. 10.4 fl (6.2-12.0); Monocyte# 0.32 X10^3/uL; Monocyte% 5.2 % (0-10); NRBC Flagged by Analyzer 0 % (0-5); Neutrophil % 40.8 % (47-70); Platelet Count 196 K/mm3 (150-450); RBC Distribution Width CV 14.1 % (11.6-14.6); RBC Distribution Width SD 47.9 fl (35.1-43.9); Red Blood Count 5.05 M/mm3 (4.6-6.2); White Blood Count 6.1 K/mm3 (4.4-11.0)
[2019-12-06 16:07] LABS: Prothrombin Time (Protime)PT. 13.4 SECONDS (11.7-14.9)
[2019-12-06 16:08] LABS: Partial Thromboplast Time 28.6 Seconds (24.1-36.2)
[2019-12-06 16:22] LABS: Anion Gap 4 (5-15); BUN 20 mg/dL (7-18); BUN/Creat Ratio 16.1 RATIO (10-20); Chloride 108 mmol/L (98-107); Creatinine, Serum 1.24 mg/dL (0.70-1.30); EST Glomerular Filtration Rate 64 mL/min (>60); Est Glom Filt Rate - Afr Amer 77 mL/min (>60); Estimated Creatinine Clearance 75.17 ml/min; Glucose 112 mg/dL (74-106); Magnesium 2.1 mg/dL (1.6-2.6); Potassium 3.6 mmol/L (3.5-5.1); Sodium Level 141 mmol/L (136-145); Thyroid Stim Hormone (TSH) 3.55 uIU/mL (0.358-3.74)
[2019-12-06] MEDS: dilTIAZem CD 120 MG Capsule PO (17:00)
[2019-12-06] MEDS: Rivaroxaban 20 MG Tablet PO (17:00)
--- NOTE | 2019-12-06 17:28 | PCM.HP.STD ---
<Devan Wilkins - Last Filed: 12/06/19 17:28> Problem List (1) New onset atrial fibrillation Status: Acute History of Present Illness Date of Admission: 12/06/19 Chief Complaint: chest pain The patient is a 58 year old M with no significant pmhx not on medications who presents to the ER from his PCPs office for abnormal heart rate. Yesterday he suddenly began to have SOB, chest pain, back pain, and fatigue. He went to the PCP's office today and was found to have afib / RVR. He was sent to the ER and EKG confirmed the same. He was given cardizem and responded well. He was started on xarelto. He was planning to follow up with Dr. Mansfield in the office however there was concern for possible underlying PE. The patient has a history of ATN after receiving IV dye on prior CT, so a CTA cannot be obtained. He plans to stay here for VQ scan and echo in the AM. He has no hx of Afib. 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 He does not smoke. [] Past Medical History Medical History: Medical History Acute cholecystitis (Acute) K81.0 Acute renal insufficiency (Acute) N28.9 MRSA infection (Acute) A49.02 right ring finger infection (Acute) Tenosynovitis of finger (Acute) Allergies Iodinated Contrast Media [CONTRASTS] Adverse Reaction (Verified 12/06/19 15:15) Other Patient developed ATN after administration of IV contrast with underlying normal kidney function (Cr 1.0 before contrast with normal ABP) Home Medications: Ambulatory Orders Medication Instructions Recorded Acetaminophen [Tylenol Arthritis] 650 mg PO BID PRN PRN 06/20/19 Surgical History: Surgical History (Last Updated 06/26/19 @ 14:14 by Rhea Mckenzie) History of cholecystectomy Onset Date: ~06/2019 Z90.49 Surgical History: cholecystectomy, - - left small finger surgery after crush injury. Previous right hand finger surgery for MRSA. Psychiatric History: No pertinent psych hx Lives: Spouse/ Significant Other Smoking Status: Never smoker Tobacco Use: Non-smoker Alcohol: None Drugs: None - *Family History Maternal History Items: No pertinent history Paternal History Items: Cancer - brain tumor, lung removed, Dementia Review of Systems Constitutional: Reports: Fatigue. Denies: Chills, Fever, Weight Change HEENT: Denies: Head Aches, Sinus Congestion, Sinus Drainage Cardiovascular: Reports: Chest Pain. Denies: Edema, Palpitations Respiratory: Reports: Shortness of Breath, Shortness of breath at rest, Shortness of breath upon exertion. Denies: Cough, Sputum production, Wheezing Gastrointestinal: Denies: Abdominal Pain, Nausea, Vomiting Genitourinary: Denies: Dysuria Musculoskeletal: Reports: Back Pain, - - negative fariba/adeola sign. Denies: Joint Pain, Joint Tenderness Skin: Denies: Rash, Wounds Neurological: Denies: Focal weakness, Numbness, Tingling Psychiatric: Denies: Anxiety, Depression, Homicidal Ideations, Suicidal Ideations Hematologic/ Lymphatic: Denies: Easy Bruising, Easy Bleeding VTE Information - Inpt Only VTE Present on Admission: No VTE Mechan Device Prophylaxis: None VTE Pharm Prophylaxis ordered?: Yes Patient Problems: Active and Suspected Problems New onset atrial fibrillation (Acute) - Physical Exam Vitals/I&O's: Vital Signs Temp Pulse Resp BP Pulse Ox 96 F L 108 H 18 115/87 H 96 12/06/19 17:17 12/06/19 17:17 12/06/19 17:17 12/06/19 17:17 12/06/19 16:59 Oxygen Delivery Method Room Air Weight: 253 lb 8.505 oz Body Mass Index (BMI) 33.4 General: Alert, Oriented x3, Cooperative HEENT: Atraumatic, PERRLA, EOMI, Normocephalic Neck: Supple, No JVD, Negative Carotid Bruits Lungs: Clear to auscultation, Normal air movement Cardiovascular: No murmurs, Irregular Rate, Tachycardic Abdomen: Bowel Sounds Present, Soft, Non Tender, Obese Extremities: No edema, Capillary Refill Less than 3 Seconds Skin: No rashes, No breakdown Musculoskeletal: No Tenderness to Palpation of Joints or Extremities Neurological: Cranial nerves II-XII grossly intact Psych/Mental Status: Normal Affect, Appropriate Laboratory Results 12/06/19 15:30: WBC 6.1, RBC 5.05, Hgb 15.6, Hct 46.9, MCV 92.9, MCH 30.9, MCHC 33.3, RDW Std Deviation 47.9 H, RDW Coeff of [place]ola 14.1, Plt Count 196, MPV 10.4, Immature Gran % (Auto) 0.500, Neut % (Auto) 40.8 L, Lymph % (Auto) 51.3 H, [place] % (Auto) 5.2, Eos % (Auto) 1.5, Baso % (Auto) 0.7, Absolute Neuts (auto) 2.5, Absolute Lymphs (auto) 3.14, Nucleated RBC % 0 12/06/19 15:30: Sodium 141, Potassium 3.6, Chloride 108 H, Carbon Dioxide 29.0, Anion Gap 4 L, BUN 20 H, Creatinine 1.24, Estim Creat Clear Calc 75.17, Est GFR (MDRD) Af Amer 77, Est GFR (MDRD) Non-Af 64, BUN/Creatinine Ratio 16.1, Glucose 112 H, Calcium 9.0, Magnesium 2.1, Troponin I < 0.015, TSH 3.55 12/06/19 15:30: PT 13.4, INR 1.0, APTT 28.6 Assessment/Plan All Active Problems New onset atrial fibrillation (Acute) 1. New onset afib/rvr - improved on cardizem 10 mg IV then Oral cardizem. Plan to continue. Start eliquis. Obtain echo in AM. TSH normal. Mag normal. 2. Chest pain / Back pain onset coincides with the onset of the afib - concern is for underlying PE. He drives ten hours daily. He cannot have CTA chest due to prior ATN with IV dye on prior CT. He will have a VQ scan in the AM. Also check LE venous duplex. Trop negative. I do not appreciate any ischemic changes on the EKG. DVT ppx: therapeutic eliquis empirically. DC planning: likely home no needs tomorrow This patient was seen by Devan Wilkins PA-C under the supervision of Dr. Zhao. <Dustin Zhao - Last Filed: 12/06/19 17:55> Problem List (1) New onset atrial fibrillation Status: Acute (2) Acute cholecystitis Status: Inactive (3) Acute renal insufficiency Status: Inactive (4) MRSA infection Status: Inactive (5) right ring finger infection Status: Inactive (6) Tenosynovitis of finger Status: Inactive History of Present Illness The patient is a 58 year old M with no significant past medical history was sent from Dr. Wheeler, PCP office for new onset A. fib. Patient heart rate was in 110s, A. fib with RVR. Patient also complained of shortness of breath since yesterday that woke him up along with chest pain, pleuritic in nature on deep breathing mainly on upper back. Patient denies any dizziness. Patient had 10 mg IV bolus diltiazem, Cardizem CD 120 mg and Xarelto 20 mg 1 dose in ED. [ In ED, heart rate is controlled about 100s per minute. ER physician also talked to Dr. Mansfield and initial plan was to discharge home but later on added about upper back pain and shortness of breath which raises suspicion of PE. Patient has history of contrast-induced nephropathy when he had CT scan with contrast for MRSA in hand. Therefore was decided to admit and do VQ scan and echo in the morning.] Past Medical History Medical History: Medical History Acute cholecystitis (Acute) K81.0 Acute renal insufficiency (Acute) N28.9 MRSA infection (Acute) A49.02 right ring finger infection (Acute) Tenosynovitis of finger (Acute) Allergies Iodinated Contrast Media [CONTRASTS] Adverse Reaction (Verified 12/06/19 15:15) Other Patient developed ATN after administration of IV contrast with underlying normal kidney function (Cr 1.0 before contrast with normal ABP) Surgical History: Surgical History (Last Updated 06/26/19 @ 14:14 by Rhea Mckenzie) History of cholecystectomy Onset Date: ~06/2019 Z90.49 Review of Systems Constitutional: Denies: Chills, Fever, Weight Change HEENT: Denies: Head Aches, Sinus Congestion, Sinus Drainage Cardiovascular: Reports: Chest Pain - Upper back pain. Denies: Palpitations Respiratory: Reports: Shortness of Breath, Shortness of breath upon exertion. Denies: Cough, Shortness of breath at rest, Sputum production Gastrointestinal: Denies: Abdominal Pain, Nausea, Vomiting Genitourinary: Denies: Dysuria Musculoskeletal: Reports: Back Pain, Joint Pain - Left hip and knee pain., Joint stiffness, Joint Tenderness, - Skin: Denies: Rash, Wounds Neurological: Denies: Numbness, Tingling, Focal weakness Psychiatric: Denies: Anxiety, Depression, Homicidal Ideations, Suicidal Ideations Hematologic/ Lymphatic: Denies: Easy Bruising, Easy Bleeding VTE Information - Inpt Only VTE Present on Admission: No VTE Mechan Device Prophylaxis: None VTE Pharm Prophylaxis ordered?: Yes - Physical Exam Vitals/I&O's: Vital Signs Temp Pulse Resp BP Pulse Ox 96 F L 108 H 18 115/87 H 96 12/06/19 17:17 12/06/19 17:17 12/06/19 17:17 12/06/19 17:17 12/06/19 16:59 Oxygen Delivery Method Room Air Weight: 253 lb 8.505 oz Body Mass Index (BMI) 33.4 General: Alert, Oriented x3, Cooperative HEENT: Atraumatic, PERRLA, EOMI, Normocephalic Neck: Supple, No JVD, Negative Carotid Bruits Lungs: Clear to auscultation, Normal air movement, No rhonchi, No wheeze, No rales Cardiovascular: No murmurs, Irregular Rate, Tachycardic Abdomen: Bowel Sounds Present, Soft, Non Tender, Non-Distended Extremities: No edema, Capillary Refill Less than 3 Seconds Skin: No rashes, No breakdown Musculoskeletal: No Tenderness to Palpation of Joints or Extremities, Arthritic Changes - Left hip tenderness over greater trochanter on abduction. Neurological: Cranial nerves II-XII grossly intact, Deep Tendon Reflexes 2+/4 and Symmetrical, Neuro grossly intact Psych/Mental Status: Normal Affect, Appropriate Laboratory Results 12/06/19 15:30: WBC 6.1, RBC 5.05, Hgb 15.6, Hct 46.9, MCV 92.9, MCH 30.9, MCHC 33.3, RDW Std Deviation 47.9 H, RDW Coeff of [place]ola 14.1, Plt Count 196, MPV 10.4, Immature Gran % (Auto) 0.500, Neut % (Auto) 40.8 L, Lymph % (Auto) 51.3 H, [place] % (Auto) 5.2, Eos % (Auto) 1.5, Baso % (Auto) 0.7, Absolute Neuts (auto) 2.5, Absolute Lymphs (auto) 3.14, Nucleated RBC % 0 12/06/19 15:30: Sodium 141, Potassium 3.6, Chloride 108 H, Carbon Dioxide 29.0, Anion Gap 4 L, BUN 20 H, Creatinine 1.24, Estim Creat Clear Calc 75.17, Est GFR (MDRD) Af Amer 77, Est GFR (MDRD) Non-Af 64, BUN/Creatinine Ratio 16.1, Glucose 112 H, Calcium 9.0, Magnesium 2.1, Troponin I < 0.015, TSH 3.55 12/06/19 15:30: PT 13.4, INR 1.0, APTT 28.6 Assessment/Plan This patient was seen in conjunction with Devan EATON. I have independently interviewed and examined the patient and reviewed pertinent history, examination findings, laboratory and plan of management. I have reviewed the note and agree with the documented findings with the few additional points. In brief, patient is 58-year old male is being admitted in PCU for 1. new onset A. fib with RVR. Patient is being a started on metoprolol 25 mg twice daily, Eliquis 10 mg twice daily; DVT/PE dose until same is ruled out. VQ scan, 2D echo and venous Doppler in the morning. TSH troponin, magnesium normal. K3.6. 1 dose of K-Dur 40 M EQ ordered. Fasting profile tomorrow a.m. Discussed with the pharmacist regarding switching from Xarelto to Eliquis. 2. Upper back pain, pleuritic in nature with shortness of breath, concern for PE: As mentioned above. 3. Left hip/knee pain possible degenerative joint disease: Outpatient follow-up with PCP. I have discussed my assessment with Devan EATON and orders have been reviewed. Code Visit OBSV E&M: 48030 Initial observation care L3
[2019-12-06] MEDS: Metoprolol Tartrate 25 MG Tablet PO (18:26)
[2019-12-06] MEDS: 0.9% Saline Lock 10 ML Syringe IV (18:33)
[2019-12-06] MEDS: 0.9% Normal Saline 1,000 ML 100 ML IV (18:33)
[2019-12-06] MEDS: APIXABAN 5 MG TABLET 10 MG PO (23:43)
[2019-12-07] VITALS (7 sets, daily range): BP systolic 101–111; BP diastolic 63–73; PULSE 63–96; RESP 14–18; TEMP 36.2–36.8; O2SAT 96–97
--- NOTE | 2019-12-07 05:55 | ECHOD_ITS ---
Reason For Study: AFIB Procedure This was a 2D Doppler, Color Flow transthoracic echocardiogram. Exam performed portable in patient room. Left Ventricle Normal LV size. The estimated ejection fraction is 60 %. No evidence for diastolic dysfunction. No regional wall motion abnormalities noted. Right Ventricle Normal RV size. Normal systolic function. Atria Normal left atrium. Normal right atrium. No doppler evidence for ASD. Mitral Valve There is no mitral valve stenosis. No mitral valve insufficiency. Tricuspid Valve There is no tricuspid stenosis. Trivial tricuspid valve insufficiency. Pulmonary artery systolic pressure is 25-30 mmHg. Aortic Valve Trisinus/trileaflet aortic valve. There is no aortic stenosis. No aortic valve insufficiency. Pulmonic Valve There is no pulmonic valvular stenosis. Trivial pulmonic valve insufficiency. Great Vessels Normal aortic root. Pericardium/Pleural No pericardial effusion. MMode/2D Measurements & Calculations LVIDd: 3.9 cm IVSd: 1.1 cm Ao root diam: 3.8 cm LVIDs: 2.7 cm LVPWd: 1.1 cm RVDd: 4.0 cm FS: 32.6 % LAV(MOD-bp): 92.7 ml LA A4 area: 26.5 cm2 LA dimension(2D): 3.8 cm LAV(MOD-bp) Indexed: 39.0 ml/m2 LAV(MOD-sp2): 102.9 ml LAV(MOD-sp4): 84.8 ml RA A4 area: 18.7 cm2 Doppler Measurements & Calculations Ao V2 max: 108.1 cm/sec LV V1 max: 99.0 cm/sec PA V2 max: 82.6 cm/sec Ao max P.8 mmHg LV V1 max P.1 mmHg PI end-d diane: 106.1 cm/sec TR max diane: 233.2 cm/sec TR max P.8 mmHg Interpretation Summary The estimated ejection fraction is 60 %. No evidence for diastolic dysfunction. Trivial tricuspid valve insufficiency. Ordering Physician: Dustin Zhao Referring Physician: ALYSSA BECKETT Performed By: Mercy Fuentes, EFE, RVT
--- NOTE | 2019-12-07 05:55 | VDLE_ITS ---
Reason For Study: SOB RIGHT LEFT GSV is normal. GSV is normal. CFV is compressible, spontaneous, phasic, CFV is compressible, spontaneous, phasic, competent and demonstrates normal competent, and demonstrates normal augmentation. augmentation. FV is compressible, spontaneous, phasic, FV is compressible, spontaneous, phasic, competent and demonstrates normal competent and demonstrates normal augmentation. augmentation. POP V is compressible, spontaneous, phasic, POP V is compressible, spontaneous, phasic, competent and demonstrates normal competent and demonstrates normal augmentation. augmentation. T/P Trunk is compressible. T/P Trunk is compressible. PTV is compressible. PTV is compressible. RT PerV is compressible. LT PerV is compressible. Heterogeneous area behind the knee measuring 3.91 x .57 cm. Area is nonvascular. Procedure Exam performed portable in patient room. The exam was diagnostic. A preliminary report was called and/or faxed to Wendy MATTHEWS. Interpretation Summary No evidence for acute deep venous thrombosis bilateral lower extremities with patent and compressible bilateral great saphenous veins. Thomas's cyst 3.91 x 0.57 cm right popliteal space Ordering Physician: Dustin Zhao Performed By: Kevyn Campbell RVT
--- NOTE | 2019-12-07 05:55 | NM_ITS ---
CLINICAL: Male, 58 years old. 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 The patient was administered 50 mCi of Tc DTPA aerosol followed by a ventilation lung scan. Comparison made to prior chest radiograph dated . COMPARISON STUDIES : Comparison is made with prior chest radiograph dated June 05, 2020. FINDINGS: The pulmonary perfusion study demonstrates uniform perfusion throughout both lung bobby. There are no demonstrated segmental or subsegmental perfusion defects The ventilation study demonstrates uniform ventilation throughout both lung bobby. There are no segmental or subsegmental ventilation abnormalities. There is central accumulation of the ventilatory agent suggestive of possible airway disease. NM/Lung Scan Vent/Perf IMPRESSION: Normal 99m Tc MAA pulmonary perfusion Tc DTPA aerosol ventilation imaging survey, according to revised PIOPED interpretive criteria. Electronically Signed: Nacho Sharif, at 11:25 EST , Service support ,
[2019-12-07 06:34] LABS: Absolute Lymphocyte Count 3.02 X10^3/uL (0.83-4.51); Basophil# 0.04 X10^3/uL; Basophil% 0.6 % (0-1); Eosinophil# 0.06 X10^3/uL; Eosinophils% 0.9 % (0-5); Hematocrit 42.5 % (40-54); Hemoglobin 14.2 g/dL (13.0-16.5); Lymphocyte # 3.02 X10^3/ul (4.0); Lymphocyte % 46.9 % (19-41); Mean Corp Hgb Conc 33.4 g/dL (32-36); Mean Corpuscular Hgb 30.7 pg (27.0-32.0); Mean Corpuscular Volume 91.8 fL (80-94); Mean Platelet Vol. 10.7 fl (6.2-12.0); Monocyte# 0.27 X10^3/uL; Monocyte% 4.2 % (0-10); NRBC Flagged by Analyzer 0 % (0-5); Neutrophil # 3.03 X10^3/uL (2.7-7.7); Neutrophil % 47.1 % (47-70); Platelet Count 177 K/mm3 (150-450); RBC Distribution Width CV 14.3 % (11.6-14.6); Red Blood Count 4.63 M/mm3 (4.6-6.2); White Blood Count 6.4 K/mm3 (4.4-11.0)
[2019-12-07 07:08] LABS: AST(SGOT) 19 U/L (15-37); Alanine Aminotransfer ALT/SGPT 36 U/L (16-61); Albumin, Serum 2.9 g/dL (3.2-5.0); Alkaline Phosphatase 75 U/L (45-117); Anion Gap 3 (5-15); BUN 18 mg/dL (7-18); BUN/Creat Ratio 16.7 RATIO (10-20); Bilirubin, Direct 0.11 mg/dL (0.00-0.30); Calcium,Total 8.4 mg/dL (8.5-10.1); Chloride 111 mmol/L (98-107); Cholesterol 172 mg/dL (200); Creatinine, Serum 1.08 mg/dL (0.70-1.30); EST Glomerular Filtration Rate 75 mL/min (>60); Est Glom Filt Rate - Afr Amer 91 mL/min (>60); Estimated Creatinine Clearance 86.31 ml/min; Globulin 3.1 g/dL (2.2-4.2); Glucose 88 mg/dL (74-106); High Density Lipoprotein 37 mg/dL; Potassium 4.1 mmol/L (3.5-5.1); Sodium Level 140 mmol/L (136-145); Thyroid Stim Hormone (TSH) 2.42 uIU/mL (0.358-3.74); Triglycerides 168 mg/dL; Very Low Density Lipoprotein 34 mg/dL (5-40)
[2019-12-07] MEDS: Metoprolol Tartrate 25 MG Tablet PO (08:02)
[2019-12-07] MEDS: APIXABAN 5 MG TABLET 10 MG PO (08:02)
--- NOTE | 2019-12-07 13:35 | DCINST_ITS ---
- Discharge Diagnoses Current Active Problems: Current Active and Chronic Problems New onset atrial fibrillation (Acute) You will use the following diet at home:: Calorie/Carbohydrate Controlled (specify 1200, 1400, etc) Discharge Activity: Return to Normal Activity Call your doctor if you observe: Shortness of breath, Dizziness, Fainting spells, Chest pain, Increased palpitations (irregular heartbeat) Instructions: Atrial Fibrillation Allergies/Adverse Reactions: Allergies Iodinated Contrast Media [CONTRASTS] Adverse Reaction (Verified 12/06/19 15:15) Other Patient developed ATN after administration of IV contrast with underlying normal kidney function (Cr 1.0 before contrast with normal ABP) Medications to take at Discharge Acetaminophen [Tylenol Arthritis] 650 mg PO BID PRN PRN 06/20/19 Apixaban [Eliquis] 5 mg PO BID #60 tab 12/07/19 Metoprolol Tartrate [Lopressor (beta andry)] 25 mg PO BID #60 tab 12/07/19 The following prescriptions were given: Apixaban [Eliquis] 5 mg PO BID #60 tab Transmission Status: Pending to [id number] Metoprolol Tartrate [Lopressor (beta andry)] 25 mg PO BID #60 tab Transmission Status: Pending to [id number] Primary Care Physician: Jarrell Mansfield MD [STAFF PHYSICIAN] - As soon as possible Please follow up with your Primary Care Physician in: Cardiology- soonest available. Test Results: Test results from this visit will be discussed in further detail at your follow- up appointment, if applicable. Please Follow Up With: Kenneth Vela MD When: 1 Week Proposed Discharge Date: 12/07/19
--- NOTE | 2019-12-07 13:38 | PCM.DC.SUM ---
<Vale Painting - Last Filed: 12/07/19 14:57> Discharge Date and Diagnosis Date of Admission: 12/06/19 Date of Discharge: 12/07/19 - Primary Discharge Diagnosis Active and Suspected Problems 1. New onset atrial fibrillation with RVR Hospital Course and Treatment Imaging Results: Diagnostic Data Chest X-Ray 12/06/19 15:47 IMPRESSION: Mild increased linear markings at the left lung base suggestive of linear atelectasis and/or scarring. Electronically Signed: Nacho Coatesmineshjori, at 16:01 EST , Service support , Lung Scan-VQ NM 12/07/19 05:55 IMPRESSION: Normal 99m Tc MAA pulmonary perfusion Tc DTPA aerosol ventilation imaging survey, according to revised PIOPED interpretive criteria. Electronically Signed: Nacho Coateshollie, at 11:25 EST , Service support , Operations: None Procedures: 2-D Echocardiogram Summary of Care Provided: The patient is a 58 year old M admitted 12/06/2019 due to chest pain. Patient was found to be in atrial fibrillation with RVR on admission. Patient initially received IV Cardizem bolus in ER with improvement in heart rate. Transition to metoprolol 25 mg twice daily. He remains in A. fib however rate has remained controlled. Initiated on Eliquis 5 mg twice daily. VQ scan normal. Patient unable to have CTA due to history of ATN with contrast. TSH, mag normal. Echocardiogram report pending however notified by cardiology that echocardiogram unremarkable. Lower extremity duplex ultrasound preliminary reported to be normal. Troponin negative. EKG without evidence of ischemia. Patient will follow up with Dr. Mansfield, cardiology within 1 week. Follow-up with primary care provider in 1 week as well. Patient seen and examined prior to discharge. Physical assessment as noted below. Patient is stable for discharge with follow up recommendations as noted above. This patient was seen by JUAN Jones under the supervision of Dr. Ruiz. - Physical Exam Vitals/I&O's: Vital Signs Temp Pulse Resp BP Pulse Ox 98.3 F 78 14 101/73 97 01/30/20 08:05 12/07/19 08:05 12/07/19 08:05 12/07/19 08:05 12/07/19 08:05 Oxygen Delivery Method Room Air Weight: 253 lb 1.451 oz Body Mass Index (BMI) 33.3 Intake and Output for Last 24 Hours 12/05/19 12/06/19 12/07/19 23:59 23:59 23:59 Intake Total 1000 / 1000 Balance 1000 / 1000 General: Alert, Oriented x3, Cooperative HEENT: Atraumatic, PERRLA, EOMI, Normocephalic Neck: Supple, No JVD, Negative Carotid Bruits Lungs: Clear to auscultation, Normal air movement Cardiovascular: - - Atrial fibrillation, rate controlled Abdomen: Bowel Sounds Present, Soft, Non Tender, Non-Distended Extremities: No clubbing, No cyanosis, No edema, Capillary Refill Less than 3 Seconds Skin: No rashes, No breakdown Musculoskeletal: No Tenderness to Palpation of Joints or Extremities Neurological: Cranial nerves II-XII grossly intact, Neuro grossly intact Psych/Mental Status: Normal Affect, Appropriate Laboratory Results 12/06/19 15:30: WBC 6.1, RBC 5.05, Hgb 15.6, Hct 46.9, MCV 92.9, MCH 30.9, MCHC 33.3, RDW Std Deviation 47.9 H, RDW Coeff of Mariola 14.1, Plt Count 196, MPV 10.4, Immature Gran % (Auto) 0.500, Neut % (Auto) 40.8 L, Lymph % (Auto) 51.3 H, Lewis % (Auto) 5.2, Eos % (Auto) 1.5, Baso % (Auto) 0.7, Absolute Neuts (auto) 2.5, Absolute Lymphs (auto) 3.14, Nucleated RBC % 0 12/06/19 15:30: Sodium 141, Potassium 3.6, Chloride 108 H, Carbon Dioxide 29.0, Anion Gap 4 L, BUN 20 H, Creatinine 1.24, Estim Creat Clear Calc 75.17, Est GFR (MDRD) Af Amer 77, Est GFR (MDRD) Non-Af 64, BUN/Creatinine Ratio 16.1, Glucose 112 H, Calcium 9.0, Magnesium 2.1, Troponin I < 0.015, TSH 3.55 12/06/19 15:30: PT 13.4, INR 1.0, APTT 28.6 12/06/19 18:42: Troponin I < 0.015 12/06/19 21:05: Troponin I < 0.015 12/07/19 05:55: Sodium 140, Potassium 4.1, Chloride 111 H, Carbon Dioxide 26.0, Anion Gap 3 L, BUN 18, Creatinine 1.08, Estim Creat Clear Calc 86.31, Est GFR (MDRD) Af Amer 91, Est GFR (MDRD) Non-Af 75, BUN/Creatinine Ratio 16.7, Glucose 88, Calcium 8.4 L, Total Bilirubin 0.50, Direct Bilirubin 0.11, AST 19, ALT 36, Alkaline Phosphatase 75, Total Protein 6.0 L, Albumin 2.9 L, Globulin 3.1, Triglycerides 168, Cholesterol 172, LDL Cholesterol 101, VLDL Cholesterol 34, HDL Cholesterol 37 L, TSH 2.42 12/07/19 05:55: WBC 6.4, RBC 4.63, Hgb 14.2, Hct 42.5, MCV 91.8, MCH 30.7, MCHC 33.4, RDW Std Deviation 48.0 H, RDW Coeff of Mariola 14.3, Plt Count 177, MPV 10.7, Immature Gran % (Auto) 0.300, Neut % (Auto) 47.1, Lymph % (Auto) 46.9 H, Lewis % (Auto) 4.2, Eos % (Auto) 0.9, Baso % (Auto) 0.6, Absolute Neuts (auto) 3.0, Absolute Lymphs (auto) 3.02, Nucleated RBC % 0 Current Medications Acetaminophen (Tylenol) 650 mg PO Q6H PRN PRN PRN Reason: Pain Score 1-3 /Temp>100.7 Al Hydroxide/Mg Hydroxide (Mylanta Ii) 30 ml PO Q6H PRN PRN PRN Reason: Gastric Burning Albuterol Sulfate (Ventolin Aerosols) 2.5 mg INHALATION Q2H PRN PRN PRN Reason: SOB/Wheezing Apixaban (Eliquis) 10 mg PO BID JEMMA Last Admin: 12/07/19 08:02 Dose: 10 mg Documented by: Glucagon () 1 mg IM .X1 PRN PRN Reason: Hypoglycemia Guaifenesin (Robitussin) 20 ml PO Q4H PRN PRN PRN Reason: COUGH Melatonin (Melatonin) 3 mg PO QHS PRN PRN PRN Reason: INSOMNIA Metoprolol Tartrate (Lopressor (Beta Jeremiah)) 25 mg PO BID [facility] Last Admin: 12/07/19 08:02 Dose: 25 mg Documented by: Metoprolol Tartrate (Lopressor (Beta Jeremiah)) 5 mg IV Q6H PRN PRN Reason: HR>120/MIN Morphine Sulfate () 2 mg IV Q3H PRN PRN PRN Reason: Pain Score 6-10/10 Nitroglycerin (Nitrostat) 0.4 mg SUBLINGUAL Q5M PRN PRN Reason: CARDIAC/CHEST PAIN Ondansetron HCl (Zofran) 4 mg IV Q8H PRN PRN PRN Reason: NAUSEA/VOMITING Oxycodone HCl (Oxyir) 5 mg PO Q4H PRN PRN PRN Reason: Pain Score 4-5/10 Prochlorperazine Edisylate (Compazine Iv) 5 mg IV Q4H PRN PRN PRN Reason: Breakthrough Nausea/Vomiting Senna/Docusate Sodium (Senokot-S, Lacy-Colace) 2 tablet PO BID PRN PRN PRN Reason: Constipation Sodium Chloride () 10 - 40 ml IV UD PRN PRN Reason: SALINE FLUSH Last Admin: 12/06/19 18:33 Dose: 10 ml Documented by: Discharge Diet: 1800 Calorie Control Diet Discharge Activity: Return to Normal Activity Call your doctor if you observe: Shortness of breath, Dizziness, Fainting spells, Chest pain, Increased palpitations (irregular heartbeat) Home Medications: Medications to take at Discharge Acetaminophen [Tylenol Arthritis] 650 mg PO BID PRN PRN 06/20/19 Apixaban [Eliquis] 5 mg PO BID #60 tab 12/07/19 Metoprolol Tartrate [Lopressor (beta jeremiah)] 25 mg PO BID #60 tab 12/07/19 Following Prescrptions Were Given to Patient: Apixaban [Eliquis] 5 mg PO BID #60 tab Transmission Status: Received by SUSY BURGER Metoprolol Tartrate [Lopressor (beta jeremiah)] 25 mg PO BID #60 tab Transmission Status: Received by SUSY RODOLFO-[id number] RADHA BURGER Primary Care Physician: Jarrell Mansfield MD [STAFF PHYSICIAN] - As soon as possible Please follow up with your Primary Care Physician in: Cardiology- soonest available. Please Follow Up With: Kenneth Vela MD When: 1 Week Patient Instructions: Atrial Fibrillation Disposition: Home Minutes spent on discharge:: 35 Patient Condition:: Stable Medical Necessity - Tobacco Use Smoking Status: Never smoker Tobacco Use: Non-smoker Meaningful Use Info Meaningful Use Diagnoses (Choose all that apply): None applicable <Mónica Ruiz - Last Filed: 12/07/19 16:42> Hospital Course and Treatment Summary of Care Provided: Patient seen by Vale Painting NP-Patsy under my supervision The patient is a 58 year old M was admitted through the ED on 12/06/2019 with a complaint of chest pain. He was found to be in A. fib with RVR on admission. He did have a history of A. fib. He was given a bolus of Cardizem which resulted in rate control and was switched to p.o. metoprolol 25 mg twice daily. He was also started on Eliquis. 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 He did not have a history of DVT or PE. He cannot have a CTA of the chest due to a history of ATN with administration of contrast. TSH was checked and was normal and magnesium was also normal. 2D echo done showed preserved left ventricular function with no significant valvular abnormalities. Patient remained stable and was discharged home on 12/07/2019. Of note, lower extremity duplex was negative and EKG showed no evidence of ischemia and troponins were also negative. He is to follow-up with his primary care doctor and to follow-up with cardiology-Dr. Mansfield within 1 week. Patient seen and examined prior to discharge. He had no complaints and felt well. Review of systems otherwise negative. Labs and vitals reviewed. Medication reviewed and reconciled. [] o/e: Vital Signs Height 6 ft 1 in Weight: 253 lb 1.451 oz Weight in Pounds 253.1 lbs Pulse Ox 96 Temperature 97.2 F Pulse Rate 70 Respiratory Rate 16 Blood Pressure 111/64 Blood Pressure Position Semi-Fowlers General: Alert, Oriented x3, Cooperative HEENT: Atraumatic, PERRLA, EOMI, Normocephalic Neck: Supple, No JVD, Negative Carotid Bruits Lungs: Clear to auscultation, Normal air movement Cardiovascular: - - Atrial fibrillation, rate controlled Abdomen: Bowel Sounds Present, Soft, Non Tender, Non-Distended Extremities: No clubbing, No cyanosis, No edema, Capillary Refill Less than 3 Seconds Skin: No rashes, No breakdown Musculoskeletal: No Tenderness to Palpation of Joints or Extremities Neurological: Cranial nerves II-XII grossly intact, Neuro grossly intact Psych/Mental Status: Normal Affect, Appropriate Plan is for discharge with a prescription for p.o. metoprolol and p.o. Eliquis. Rest as per Vale Painting NP-C's notes which I have reviewed and endorsed. - Physical Exam Vitals/I&O's: Vital Signs Temp Pulse Resp BP Pulse Ox 97.2 F L 70 16 111/64 96 12/07/19 14:05 12/07/19 14:50 12/07/19 14:05 12/07/19 14:05 12/07/19 14:05 Oxygen Delivery Method Room Air Weight: 253 lb 1.451 oz Body Mass Index (BMI) 33.3 Intake and Output for Last 24 Hours 12/05/19 12/06/19 12/07/19 23:59 23:59 23:59 Intake Total 1360 / 1360 Balance 1360 / 1360 Laboratory Results 12/06/19 18:42: Troponin I < 0.015 12/06/19 21:05: Troponin I < 0.015 12/07/19 05:55: Sodium 140, Potassium 4.1, Chloride 111 H, Carbon Dioxide 26.0, Anion Gap 3 L, BUN 18, Creatinine 1.08, Estim Creat Clear Calc 86.31, Est GFR (MDRD) Af Amer 91, Est GFR (MDRD) Non-Af 75, BUN/Creatinine Ratio 16.7, Glucose 88, Calcium 8.4 L, Total Bilirubin 0.50, Direct Bilirubin 0.11, AST 19, ALT 36, Alkaline Phosphatase 75, Total Protein 6.0 L, Albumin 2.9 L, Globulin 3.1, Triglycerides 168, Cholesterol 172, LDL Cholesterol 101, VLDL Cholesterol 34, HDL Cholesterol 37 L, TSH 2.42 12/07/19 05:55: WBC 6.4, RBC 4.63, Hgb 14.2, Hct 42.5, MCV 91.8, MCH 30.7, MCHC 33.4, RDW Std Deviation 48.0 H, RDW Coeff of Mariola 14.3, Plt Count 177, MPV 10.7, Immature Gran % (Auto) 0.300, Neut % (Auto) 47.1, Lymph % (Auto) 46.9 H, Lewis % (Auto) 4.2, Eos % (Auto) 0.9, Baso % (Auto) 0.6, Absolute Neuts (auto) 3.0, Absolute Lymphs (auto) 3.02, Nucleated RBC % 0 Code Visit OBSV E&M: 88968 Observation care discharge
--- NOTE | 2019-12-07 14:36 | CASEMGMT ---
Pt to be sent home on Eliquis at discharge and med e-scribed to [facility] previously. Call to [facility] and per pharmacist, pt's co-pay is $150 at this time. This RN CM to room to discuss with pt and pt provided with an Eliquis $10 co-pay card and instructions to activate at this time, voices understanding. Pt voices no further questions/concerns/needs at this time. Pt is still awaiting some testing prior to discharge. SStaten RN CM
--- NOTE | 2019-12-07 14:45 | CHAPLAIN ---
Type of Pastoral Visit _x__ Initial Visit ___ Follow-up Visit ___ On-call Visit ___ General Patient Visit ___ Spiritual Assessment ___ Family Conference ___ Bereavement ___ Rapid Response ___ Code Blue ___ Other (describe below) Pastoral Care Referral From _x__ Patient ___ Family ___ Nurse ___ Physician ___ Enterprise Data Architect ___ Auto Body Repair Teacher ___ Other (describe below) Sacrament/Intervention _x__ Active listening ___ Anointing ___ Nondenominational ___ Bereavement ___ Communion ___ Romana exploration ___ ___ Life review ___ Prayer ___ Reconciliation ___ Sacrament of Sick ___ Supportive presence ___ Wedding ___ Other (describe below) Pastoral Comments
== END 2019-12-07 13:37 | disposition home or self-care (01) ==
LOC: ED 16:00 → PCU 18:01
PROVIDERS: Admitting Provider Internal Medicine; Emergency Provider Emergency Medicine; PCP Family Medicine; Visit Provider Student in an Organized Health Care Education/Training Program
DX: I48.91 Unspecified atrial fibrillation (principal); M25.552 Pain in left hip; M25.562 Pain in left knee; R94.31 Abnormal electrocardiogram [ECG] [EKG]; I07.1 Rheumatic tricuspid insufficiency; Z86.14 Personal history of Methicillin resistant Staphylococcus aureus infection
CPT/HCPCS: 36415; 71045; 78582; 80048; 80061; 80076; 83735; 84443; 84484; 85025; 85610; 85730; 93005; 93306; 93970; 96361; 96374; 99218; 99251; 99285; A9540; A9567; J7030; Q9957; A4216; G0378; G0463

== ENCOUNTER → 2019-12-22 10:20 | Outpatient (CLI) | payer OTHER, SELFPAY ==
[2019-12-12 09:24] VITALS: BMI 34.0
--- NOTE | 2019-12-22 10:23 | STE_ITS ---
Reason For Study: Atrial Fibrillation Stress Results Protocol: Ivan Protocol Maximum Predicted HR: 163 bpm Target HR: 139 bpm % Maximum Predicted HR: 104 % DurationHeart Rate Stage (mm:ss) (bpm) BP Comment Baseline 85 110/68No Chest Pain; Atrial Fibrillation Ivan Protocol Stage I 3:00 153 126/74No Chest Pain Ivan Protocol Stage II 3:00 169 140/62No Chest Pain; Mild Dyspnea Ivan Protocol Stage III 0:30 162 / No Chest Pain; Moderate Dyspnea Recovery 100 112/72No Chest Pain Stress Duration: 6:30 mm:ss Maximum Stress HR: 169 bpm METS: 8 Baseline Echocardiogram Findings The estimated ejection fraction is 65 %. Stress Echo Wall motion Data Resting WM Intermediate WM Stress WM Resting Wall Motion Wall Motion Stress No regional wall motion No regional wall motion abnormalities noted. abnormalities noted. EKG Data Atrial fibrillation with CVR. The patient exercised according to the regular Ivan protocol for a total duration of 6:30. The maximum heart rate attained was 169 beats per minute. This was 103% of maximum predicted heart rate. The patient exercised into stage 3 of the Ivan protocol. During stress, there were no ST or T wave changes noted to suggest ischemia. No clinical angina was noted. Interpretation Summary The estimated ejection fraction is 65 %. Normal, adequate, treadmill echocardiogram. Negative for ischemia by EKG and echocardiographic criteria. No anginal symptoms noted. Rare PVC noted. Average exercise capacity for age. Appropriate blood pressure response to exercise. Final LVEF of 75%. Test terminated due to the attainment target heart rate and dyspnea. No complications. Patient tolerated procedure well. Ordering Physician: Jarrell Mansfield Referring Physician: Kenneth Vela Performed By: Kimberly Ibrahim RDCS
== END ==
PROVIDERS: PCP Family Medicine; Referring Provider Internal Medicine Cardiovascular Disease; Visit Provider Internal Medicine Cardiovascular Disease
DX: R07.9 Chest pain, unspecified (principal); I48.91 Unspecified atrial fibrillation
CPT/HCPCS: 93017; 93350

== ENCOUNTER → 2019-12-28 08:13 | Outpatient (CLI) | payer OTHER, SELFPAY ==
[2019-12-12 09:24] VITALS: BMI 34.0
[2019-12-28 10:10] LABS: Anion Gap 4 (5-15); BUN 14 mg/dL (7-18); BUN/Creat Ratio 13.3 RATIO (10-20); Calcium,Total 8.8 mg/dL (8.5-10.1); Chloride 105 mmol/L (98-107); Creatinine, Serum 1.05 mg/dL (0.70-1.30); EST Glomerular Filtration Rate 77 mL/min (>60); Est Glom Filt Rate - Afr Amer 94 mL/min (>60); Glucose 104 mg/dL (74-106); Potassium 4.3 mmol/L (3.5-5.1); Sodium Level 139 mmol/L (136-145)
== END ==
PROVIDERS: PCP Family Medicine; Referring Provider Internal Medicine Cardiovascular Disease; Visit Provider Internal Medicine Cardiovascular Disease
DX: I48.91 Unspecified atrial fibrillation (principal)
CPT/HCPCS: 36415; 80048

== ENCOUNTER 2020-01-03 11:17 | Day surgery (SDC) | payer OTHER, SELFPAY ==
[2019-12-12 09:24] VITALS: BMI 34.0
--- NOTE | 2019-12-12 10:04 | HP_ITS ---
HPI HPI History of Present Illness Surgical H&P: Yes Details: Mr. Buck is a very pleasant 59-year-old gentleman nondiabetic, non- smoker, with a history of ATN after IV contrast dye, new onset atrial fibrillation detected in his doctor's office on the day of admission, and responded well to IV Cardizem, who was admitted on 12/07/2019 with atrial fibrillation and chest pain possibly felt to be pulmonary embolus. He underwent a lung VQ scan as he could not take IV contrast dye for CT scan, on 12/07/2019 which was read to be normal. Patient was placed on metoprolol and Eliquis and subsequently discharged home for follow-up in our office. He did not undergo a stress test. Patient is never had a heart catheterization, has no family history of premature coronary disease, is a lifelong non-smoker, and occasionally drinks alcohol but never used to drink heavily. 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 His initial presentation the night before admission was that he felt as though he was coming down with bronchitis, felt tremendously exhausted, but no chest pain symptoms. He sought medical attention at his PCPs office the next day, and he was found to be in rapid atrial fibrillation and sent to the emergency room which triggered his admission, VQ scan, and echocardiogram. Patient denies snoring, or waking himself up with his own snoring, but does have daytime somnolence to a mild degree. He has never had a sleep study. His has sleep apnea. In addition he underwent a 2D echo with Doppler on 12/07/2019 with the following results: The estimated ejection fraction is 60 %. No evidence for diastolic dysfunction. Trivial tricuspid valve insufficiency. RVSP estimated to be 37 mmHg. Since his discharge, the patient remains in atrial fibrillation, but is asymptomatic and feels better. He is compliant with his medications. 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 He denies any chest pain, angina, shortness of breath or dyspnea on exertion. He is taking and tolerating his medicines well. EKG dated 12/06/2019 shows atrial fibrillation with controlled ventricular response, no acute changes. Lipids dated 06/20/2019 showed an HDL of 37 and LDL of 101. TSH dated 12/07/2019 was 2.42 which is normal. In our office today his blood pressure is 120/70, and pulse is 72 and irregular. His physical exam demonstrates clear lungs bilaterally, no carotid bruits, no thyroid nodules, irregularly irregular rhythm, normal S1/S2, no S3. No edema. Lipids are as above. EKG from his hospital admission is as above. Intake Vital Signs 12/12/19 Height 6 ft 1 in 12/12/19 Weight: 258 lb 12/12/19 BMI 34.0 12/12/19 BP 120/70 12/12/19 Blood Pressure Location Lt brachial 12/12/19 Position Sitting 12/12/19 Respiration 20 H 12/12/19 Pulse 72 12/12/19 Pulse Source Auscultation Intake Visit Reasons: A FIB ([facility] - NO CONSULT) Allergies Iodinated Contrast Media [CONTRASTS] Adverse Reaction (Verified 12/12/19 09:31) Other Medications Acetaminophen [Tylenol Arthritis] 650 mg PO BID PRN PRN 06/20/19 [History Confirmed 12/11/19] apixaban 5 mg tablet 5 mg PO BID #60 tab 12/12/19 [Rx Confirmed 12/12/19] metoprolol tartrate 25 mg tablet 25 mg PO BID #60 tab 12/12/19 [Rx Confirmed 12/12/19] [facility] Medical History (Updated 12/12/19 @ 09:58 by Siria Roy) Hypersomnia (Chronic) Chest pain (Resolved) New onset atrial fibrillation (Acute) Acute cholecystitis (Inactive) Acute renal insufficiency (Inactive) MRSA infection (Inactive) right ring finger infection (Inactive) Tenosynovitis of finger (Inactive) Surgical History (Updated 12/11/19 @ 08:49 by Siria Roy) History of colonoscopy (Chronic 11/27/16) History of tonsillectomy and adenoidectomy (Chronic) history of finger surgery (Chronic) History of cholecystectomy (Chronic 06/20/19) Family History (Updated 12/11/19 @ 08:47 by Siria Roy) Mother Alzheimer's disease Father Brain tumor S/P lobectomy of lung S/p nephrectomy Cancer Brother COPD (chronic obstructive pulmonary disease) Sister Alzheimer's disease Social History (Updated 12/12/19 @ 10:04 by Jarrell Mansfield MD) Smoking Status: Never smoker ROS Const Const: Positive for other; negative for fatigue, weakness, body ache, fever(s), headache(s), chills, frequent falls, night sweats, daytime sleepiness, difficulty sleeping, excessive sweating, weight gain, weight loss, increased appetite, poor appetite or anorexia Eyes Eyes: Negative for blind spots, loss of peripheral vision, transient loss of vision, blurry vision, change in vision, double vision, floaters, tunnel vision or other ENT ENT: Negative for headache(s), dizziness, hearing loss, tinnitus, Nosebleed/epistaxis, balance problems, post nasal drip, lip swelling, tongue swelling, bleeding gums, hoarseness, neck pain, dry mouth or other Cardio Chest Pain: No Resp Respiratory: Negative for SOB with activity, SOB at rest, SOB orthopnea\SOB lying down, Coughing up blood/hemoptysis, chest congestion, pain on inspiration, snoring, stridor, wheezing, crackles, paroxysmal nocturnal dyspnea or other GI GI: Negative nausea, vomiting, heartburn, constipation, belching, bloating, cramping, vomiting blood/hematemesis, bright, red blood in stools, black,tarry stools, loose stools, Difficulty Swallowing or other : Negative for hematuria, frequent nighttime urination/ nocturia, erectile dysfunction or abnormal vaginal bleeding Musc Musc: Negative for muscle aches/ myalgia, muscle weakness, joint pain or balance problems Skin Skin: Negative redness, non-healing lesions, rash, unusual bruising, skin ulcer, wounds, jaundice or other Neuro Neuro: Negative for dizziness, lightheadedness, near syncope, syncope, orthostatic symptoms, frequent falls, headache(s), weakness, confusion, memory loss, restless legs, blurry vision, double vision, vertigo, seizures, lack of coordination or other Reinaldo Hematologic/Lymphatic: Negative for easy bleeding, easy bruising, enlarged lymph nodes or other Endo Endo: Negative for fatigue, cold intolerance, heat intolerance, excessive sweating, flushing, increased thirst/drinking, increased hunger, hair loss, hair growth or other Psych Psych: Negative for anxiety, depression, thoughts of harming anyone, thoughts of harming yourself, visual hallucinations, panic attacks or audible hallucinations Allergy Allergy/Immunology: Negative for throat swelling, Negative for tongue swelling, Negative for hives, Negative for rash, Negative for lip swelling Cardiology Exam Const Appearance: cooperative, healthy appearing and no acute distress Nutritional Appearance: well nourished Orientation: alert, oriented x3 and oriented to person Head Head: normal to inspection, normocephalic and atraumatic Nose: external nose normal Face and Sinus: face symmetric Mouth: oral mucosae normal Eyes General: appearance normal, both eyes and all related structures Eyelids: eyelids normal Conjunctivae: conjunctivae normal Pupils: PERRL and normal by confrontation EOM: EOM intact bilaterally Neck Neck: normal visual inspection and full ROM Carotids: normal carotid upstroke Chest Chest inspection: normal inspection of the chest Auscultation: Bilateral: Clear to Auscultation Cardio Palpation: normal PMI Rate: regular rate Rhythm: irregular rhythm Heart sounds: S1 normal and S2 normal GI GI: normal to inspection, no hepatosplenomegaly and bowel sounds present Neuro General: alert, awake, oriented x3, CN's II-XI intact bilaterally and moves all extremities Skin Skin: no rashes or lesions noted Extremities Pulses: Normal: Right Femoral Pulse, Left Femoral Pulse, Right Dorsalis Pedis Pulse, Left Dorsalis Pedis Pulse, Right Posterior Tibial Pulse, Left Posterior Tibial Pulse, Right Radial Pulse, Left Radial Pulse Lower Extremity Edema: None: Bilateral Psych Psychological: normal affect Assessment & Plan 1. New onset atrial fibrillation I48.91 Plan 1. New onset atrial fibrillation: The patient presents with new onset atrial fibrillation, with heart rate control and currently on anticoagulation therapy without difficulty. He is maintained on metoprolol and Eliquis. I recommended the patient undergo a treadmill echocardiogram to evaluate for possible coronary ischemia as well as blood pressure response to exercise. If this is grossly abnormal, the patient may require diagnostic coronary angiogram and probable premedication with IV fluids given his IV contrast dye reaction in the past. If his stress test is negative, he will be arranged for elective DC cardioversion in 3 weeks time. If this is unsuccessful, the patient may benefit from flecainide assistance followed by repeat cardioversion. If that is unsuccessful, the patient may require referral to EP for possible A. fib ablation. 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 His heart rate and blood pressure are well controlled. Orders Orders: Stress Test Echo W/Contrast Today Cardioversion 3 Weeks Basic Metabolic Profile (BMP) Today Polysomnography Today 2. Hypersomnia G47.10 Plan 2. Hypersomnia: Patient has mild hypersomnia, and may have undiagnosed obstructive sleep apnea. Recommended the patient undergo a sleep study as an outpatient. Orders Orders: Polysomnography Today 3. Chest pain R07.9 Plan 3. Chest pain: Patient had some mild chest discomfort radiating to his back and his VQ scan was negative. Stress test is pending. 4. Hyperlipidemia: The patient has no family history of premature coronary artery disease. His LDL and HDL cholesterol are fairly well controlled without medication therapy. Should the patient require a catheterization and coronary disease is found, he may require more aggressive LDL reduction. 5. Return office in 6 months This note was generated using a voice recognition system and there may be incorrect words, spelling or punctuation that were not noted when reviewing the office note prior to saving. Orders Orders: Stress Test Echo W/Contrast Today Plan Detail Other Medications Refilled: apixaban 5 mg PO BID 60 tabs 11RF metoprolol tartrate 25 mg PO BID 60 tabs 11RF Follow Up +6M (Donal) Coding Level of Care Code Off vis,new,level 4 Diagnoses New onset atrial fibrillation I48.91 Hypersomnia G47.10 Chest pain R07.9 Coding Level of Care Code Off vis,new,level 4 Diagnoses New onset atrial fibrillation I48.91 Hypersomnia G47.10 Chest pain R07.9 Supplemental Info Supplemental Information Labs LDL Cholesterol 101 mg/dL (0-130) 12/07/19 HDL Cholesterol 37 mg/dL (40-) L 12/07/19 Triglycerides 168 mg/dL (-199) 12/07/19 VLDL Cholesterol 34 mg/dL (5-40) 12/07/19 Diagnostics Electrocardiogram 12/06/19 Echocardiogram 12/07/19 Chest X-Ray 12/06/19 Venous Doppler Study 12/07/19 12/12/19 1004 <Electronically signed by Jarrell Mansfield MD> Date _ Jarrell Mansfield MD
[2020-01-02 08:49] VITALS: BMI 33.3
--- NOTE | 2020-01-03 13:17 | CARDIOVERS ---
Cardioversion Cardioversion: Cardioversion summary: The patient was brought to the [facility] in the fasting state. Baseline EKG showed atrial fibrillation with controlled ventricular response. The patient had been on Cardizem and Eliquis therapy for some time. The risk/benefits of the procedure were thoroughly explained the patient and informed consent was obtained. The defibrillator pads were placed in the AP position. With the assistance of Dr. Justino Tejada the patient was given IV propofol in increments until he was adequately sedated. Once adequate sedation was obtained, patient was given a single biphasic synchronized 200 J shock which converted him from atrial fibrillation to normal sinus rhythm. The patient spontaneously awoke, moves all 4 extremities and tolerated procedure well. Conclusions: Successful Cardizem and Eliquis assisted DC cardioversion with a single 200 J biphasic synchronized shock. Patient remain on Cardizem and Eliquis going forward. 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 He will return in 1 week's time for an EKG. If he is no longer in sinus rhythm we will attempt repeat cardioversion with the addition of flecainide therapy. If he remains in sinus rhythm we will continue with Cardizem and Eliquis therapy. Patient taught procedure well. All questions answered to the patient's family. Many thanks to Dr. Justino Tejada.
--- NOTE | 2020-01-03 13:26 | PCM.OP.PRO ---
Procedure Report Date of Procedure: 01/03/20 CONSCIOUS SEDATION REPORT DATE OF SERVICE: January 03, 2020 BRIEF HISTORY OF PRESENT ILLNESS: The patient is a 59-year-old male who presented to [facility] for an elective outpatient cardioversion due to underlying atrial fibrillation. The patient has never previously undergone a prior cardioversion. His last surface echocardiogram revealed an ejection fraction of approximately 60%. He is currently anticoagulated on Eliquis. He denies any previous anesthetic complications. He has no known history of COPD or asthma. The patient does currently have a pending sleep study over concerns for sleep disordered breathing. PHYSICAL EXAMINATION: VITAL SIGNS: Reviewed and were acceptable. GENERAL: The patient is a male, in no apparent distress, speaking in full sentences. HEENT: Normocephalic, atraumatic. Mucous membranes are moist and pink. Good mouth opening noted. Trachea is midline. Good neck mobility. CHEST: S1, S2 irregularly irregular. No murmurs, rubs or gallops were noted. LUNGS: Clear to auscultation bilaterally without appreciable wheezes, rales or rhonchi. ABDOMEN: Soft, nontender, nondistended. Positive bowel sounds. EXTREMITIES: There is no clubbing, cyanosis or edema. ASA Class: II DESCRIPTION OF PROCEDURE: After confirmation of informed consent, the patient's anesthesia plan was reviewed in detail. Propofol was chosen. Risks and benefits were reviewed and the patient agreed to proceed. At 1301, the patient was given 80 mg of propofol. The patient achieved an appropriate level of sedation and was given a 200 joule synchronized cardioversion by Dr. Mansfield at the bedside. This was successful in achieving normal sinus rhythm. The patient was monitored until 1311, at which time he reached his baseline mental status and function. The patient tolerated the procedure well. COMPLICATIONS: None ESTIMATED BLOOD LOSS: None RECOMMENDATIONS: Okay to recover in usual fashion. Code Visit 9xxxx: Other Procedure See Report - [id number]
--- NOTE | 2020-01-10 14:27 | PCM.HP.BLA ---
Problem List (1) New onset atrial fibrillation Status: Acute (2) History of cardioversion Status: Chronic History and Physical Date of Admission: 01/04/20 [facility] [address] [place] [address] OFFICE VISIT Date of Service: 12/12/19 MR#: [id number] Acct: [id number] Name: GHISLAINE DE LA CRUZ Rep #: [id number] : 1960 Provider: Jarrell Mansfield MD Age/Sex: 59/M Location: [facility] [place] Status: Signed HPI HPI History of Present Illness Surgical H&P: Yes Details: Mr. Buck is a very pleasant 59-year-old gentleman nondiabetic, non-smoker, with a history of ATN after IV contrast dye, new onset atrial fibrillation detected in his doctor's office on the day of admission, and responded well to IV Cardizem, who was admitted on 12/07/2019 with atrial fibrillation and chest pain possibly felt to be pulmonary embolus. He underwent a lung VQ scan as he could not take IV contrast dye for CT scan, on 12/07/2019 which was read to be normal. Patient was placed on metoprolol and Eliquis and subsequently discharged home for follow-up in our office. He did not undergo a stress test. Patient is never had a heart catheterization, has no family history of premature coronary disease, is a lifelong non-smoker, and occasionally drinks alcohol but never used to drink heavily. 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 His initial presentation the night before admission was that he felt as though he was coming down with bronchitis, felt tremendously exhausted, but no chest pain symptoms. He sought medical attention at his PCPs office the next day, and he was found to be in rapid atrial fibrillation and sent to the emergency room which triggered his admission, VQ scan, and echocardiogram. Patient denies snoring, or waking himself up with his own snoring, but does have daytime somnolence to a mild degree. He has never had a sleep study. His has sleep apnea. In addition he underwent a 2D echo with Doppler on 12/07/2019 with the following results: The estimated ejection fraction is 60 %. No evidence for diastolic dysfunction. Trivial tricuspid valve insufficiency. RVSP estimated to be 37 mmHg. Since his discharge, the patient remains in atrial fibrillation, but is asymptomatic and feels better. He is compliant with his medications. 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 He denies any chest pain, angina, shortness of breath or dyspnea on exertion. He is taking and tolerating his medicines well. EKG dated 12/06/2019 shows atrial fibrillation with controlled ventricular response, no acute changes. Lipids dated 06/20/2019 showed an HDL of 37 and LDL of 101. TSH dated 12/07/2019 was 2.42 which is normal. In our office today his blood pressure is 120/70, and pulse is 72 and irregular. His physical exam demonstrates clear lungs bilaterally, no carotid bruits, no thyroid nodules, irregularly irregular rhythm, normal S1/S2, no S3. No edema. Lipids are as above. EKG from his hospital admission is as above. Intake Vital Signs 12/12/19 Height 6 ft 1 in 12/12/19 Weight: 258 lb 12/12/19 BMI 34.0 12/12/19 BP 120/70 12/12/19 Blood Pressure Location Lt brachial 12/12/19 Position Sitting 12/12/19 Respiration 20 H 12/12/19 Pulse 72 12/12/19 Pulse Source Auscultation Intake Visit Reasons: A FIB ([facility] - NO CONSULT) Allergies Iodinated Contrast Media [CONTRASTS] Adverse Reaction (Verified 12/12/19 09:31) Other Medications Acetaminophen [Tylenol Arthritis] 650 mg PO BID PRN PRN 06/20/19 [History Confirmed 12/11/19] apixaban 5 mg tablet 5 mg PO BID #60 tab 12/12/19 [Rx Confirmed 12/12/19] metoprolol tartrate 25 mg tablet 25 mg PO BID #60 tab 12/12/19 [Rx Confirmed 12/12/19] [facility] Medical History (Updated 12/12/19 @ 09:58 by Siria Roy) Hypersomnia (Chronic) Chest pain (Resolved) New onset atrial fibrillation (Acute) Acute cholecystitis (Inactive) Acute renal insufficiency (Inactive) MRSA infection (Inactive) right ring finger infection (Inactive) Tenosynovitis of finger (Inactive) Surgical History (Updated 12/11/19 @ 08:49 by Siria Roy) History of colonoscopy (Chronic 11/27/16) History of tonsillectomy and adenoidectomy (Chronic) history of finger surgery (Chronic) History of cholecystectomy (Chronic 06/20/19) Family History (Updated 12/11/19 @ 08:47 by Siria Roy) Mother Alzheimer's disease Father Brain tumor S/P lobectomy of lung S/p nephrectomy Cancer Brother COPD (chronic obstructive pulmonary disease) Sister Alzheimer's disease Social History (Updated 12/12/19 @ 10:04 by Jarrell Mansfield MD) Smoking Status: Never smoker ROS Const Const: Positive for other; negative for fatigue, weakness, body ache, fever(s), headache(s), chills, frequent falls, night sweats, daytime sleepiness, difficulty sleeping, excessive sweating, weight gain, weight loss, increased appetite, poor appetite or anorexia Eyes Eyes: Negative for blind spots, loss of peripheral vision, transient loss of vision, blurry vision, change in vision, double vision, floaters, tunnel vision or other ENT ENT: Negative for headache(s), dizziness, hearing loss, tinnitus, Nosebleed/epistaxis, balance problems, post nasal drip, lip swelling, tongue swelling, bleeding gums, hoarseness, neck pain, dry mouth or other Cardio Chest Pain: No Resp Respiratory: Negative for SOB with activity, SOB at rest, SOB orthopnea\SOB lying down, Coughing up blood/hemoptysis, chest congestion, pain on inspiration, snoring, stridor, wheezing, crackles, paroxysmal nocturnal dyspnea or other GI GI: Negative nausea, vomiting, heartburn, constipation, belching, bloating, cramping, vomiting blood/hematemesis, bright, red blood in stools, black,tarry stools, loose stools, Difficulty Swallowing or other : Negative for hematuria, frequent nighttime urination/ nocturia, erectile dysfunction or abnormal vaginal bleeding Musc Musc: Negative for muscle aches/ myalgia, muscle weakness, joint pain or balance problems Skin Skin: Negative redness, non-healing lesions, rash, unusual bruising, skin ulcer, wounds, jaundice or other Neuro Neuro: Negative for dizziness, lightheadedness, near syncope, syncope, orthostatic symptoms, frequent falls, headache(s), weakness, confusion, memory loss, restless legs, blurry vision, double vision, vertigo, seizures, lack of coordination or other Reinaldo Hematologic/Lymphatic: Negative for easy bleeding, easy bruising, enlarged lymph nodes or other Endo Endo: Negative for fatigue, cold intolerance, heat intolerance, excessive sweating, flushing, increased thirst/drinking, increased hunger, hair loss, hair growth or other Psych Psych: Negative for anxiety, depression, thoughts of harming anyone, thoughts of harming yourself, visual hallucinations, panic attacks or audible hallucinations Allergy Allergy/Immunology: Negative for throat swelling, Negative for tongue swelling, Negative for hives, Negative for rash, Negative for lip swelling Cardiology Exam Const Appearance: cooperative, healthy appearing and no acute distress Nutritional Appearance: well nourished Orientation: alert, oriented x3 and oriented to person Head Head: normal to inspection, normocephalic and atraumatic Nose: external nose normal Face and Sinus: face symmetric Mouth: oral mucosae normal Eyes General: appearance normal, both eyes and all related structures Eyelids: eyelids normal Conjunctivae: conjunctivae normal Pupils: PERRL and normal by confrontation EOM: EOM intact bilaterally Neck Neck: normal visual inspection and full ROM Carotids: normal carotid upstroke Chest Chest inspection: normal inspection of the chest Auscultation: Bilateral: Clear to Auscultation Cardio Palpation: normal PMI Rate: regular rate Rhythm: irregular rhythm Heart sounds: S1 normal and S2 normal GI GI: normal to inspection, no hepatosplenomegaly and bowel sounds present Neuro General: alert, awake, oriented x3, CN's II-XI intact bilaterally and moves all extremities Skin Skin: no rashes or lesions noted Extremities Pulses: Normal: Right Femoral Pulse, Left Femoral Pulse, Right Dorsalis Pedis Pulse, Left Dorsalis Pedis Pulse, Right Posterior Tibial Pulse, Left Posterior Tibial Pulse, Right Radial Pulse, Left Radial Pulse Lower Extremity Edema: None: Bilateral Psych Psychological: normal affect Assessment & Plan 1. New onset atrial fibrillation I48.91 Plan 1. New onset atrial fibrillation: The patient presents with new onset atrial fibrillation, with heart rate control and currently on anticoagulation therapy without difficulty. He is maintained on metoprolol and Eliquis. I recommended the patient undergo a treadmill echocardiogram to evaluate for possible coronary ischemia as well as blood pressure response to exercise. If this is grossly abnormal, the patient may require diagnostic coronary angiogram and probable premedication with IV fluids given his IV contrast dye reaction in the past. If his stress test is negative, he will be arranged for elective DC cardioversion in 3 weeks time. If this is unsuccessful, the patient may benefit from flecainide assistance followed by repeat cardioversion. If that is unsuccessful, the patient may require referral to EP for possible A. fib ablation. 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 His heart rate and blood pressure are well controlled. Orders Orders: Stress Test Echo W/Contrast Today Cardioversion 3 Weeks Basic Metabolic Profile (BMP) Today Polysomnography Today 2. Hypersomnia G47.10 Plan 2. Hypersomnia: Patient has mild hypersomnia, and may have undiagnosed obstructive sleep apnea. Recommended the patient undergo a sleep study as an outpatient. Orders Orders: Polysomnography Today 3. Chest pain R07.9 Plan 3. Chest pain: Patient had some mild chest discomfort radiating to his back and his VQ scan was negative. Stress test is pending. 4. Hyperlipidemia: The patient has no family history of premature coronary artery disease. His LDL and HDL cholesterol are fairly well controlled without medication therapy. Should the patient require a catheterization and coronary disease is found, he may require more aggressive LDL reduction. 5. Return office in 6 months This note was generated using a voice recognition system and there may be incorrect words, spelling or punctuation that were not noted when reviewing the office note prior to saving. Orders Orders: Stress Test Echo W/Contrast Today Plan Detail Other Medications Refilled: apixaban 5 mg PO BID 60 tabs 11RF metoprolol tartrate 25 mg PO BID 60 tabs 11RF Follow Up +6M (Mansfield) Coding Level of Care Code Off vis,new,level 4 Diagnoses New onset atrial fibrillation I48.91 Hypersomnia G47.10 Chest pain R07.9 Coding Level of Care Code Off vis,new,level 4 Diagnoses New onset atrial fibrillation I48.91 Hypersomnia G47.10 Chest pain R07.9 Supplemental Info Supplemental Information Labs LDL Cholesterol 101 mg/dL (0-130) 12/07/19 HDL Cholesterol 37 mg/dL (40-) L 12/07/19 Triglycerides 168 mg/dL (-199) 12/07/19 VLDL Cholesterol 34 mg/dL (5-40) 12/07/19 Diagnostics Electrocardiogram 12/06/19 Echocardiogram 12/07/19 Chest X-Ray 12/06/19 Venous Doppler Study 12/07/19 12/12/19 1004 <Electronically signed by Jarrell Mansfield MD> Date Jarrell Mansfield MD Patient seen and examined prior to DC cardioversion. The risk/benefits of the procedure were thoroughly explained to the patient, and informed consent was obtained. The patient been compliant with his anticoagulation as instructed. DC cardioversion to follow.
== END 2020-01-03 14:11 | disposition home or self-care (01) ==
LOC: CLSP 11:18
PROVIDERS: PCP Family Medicine; Referring Provider Internal Medicine Cardiovascular Disease; Visit Provider Internal Medicine Cardiovascular Disease
DX: I48.91 Unspecified atrial fibrillation (principal); G47.10 Hypersomnia, unspecified; Z87.19 Personal history of other diseases of the digestive system; Z86.14 Personal history of Methicillin resistant Staphylococcus aureus infection; Z87.448 Personal history of other diseases of urinary system; Z79.01 Long term (current) use of anticoagulants; Z79.899 Other long term (current) drug therapy
CPT/HCPCS: 92960; 93005; J7040

== ENCOUNTER → 2021-01-23 10:18 | Outpatient (CLI) | payer OTHER, SELFPAY ==
[2020-10-24 15:10] VITALS: BMI 33.6
[2021-01-23 10:53] LABS: Absolute Lymphocyte Count 2.96 X10^3/uL (0.83-4.51); Absolute Neutrophil Count 2.5 X10^3/uL (2.0-7.7); Basophil# 0.05 X10^3/uL; Basophil% 0.8 % (0-1); Eosinophil# 0.12 X10^3/uL; Hematocrit 45.3 % (40-54); Lymphocyte # 2.96 X10^3/ul (4.0); Lymphocyte % 49.6 % (19-41); Mean Corp Hgb Conc 33.1 g/dL (32-36); Mean Corpuscular Hgb 31.4 pg (27.0-32.0); Mean Platelet Vol. 10.1 fl (6.2-12.0); Monocyte# 0.31 X10^3/uL; Monocyte% 5.2 % (0-10); NRBC Flagged by Analyzer 0 % (0-5); Neutrophil # 2.51 X10^3/uL (2.7-7.7); Neutrophil % 42.1 % (47-70); Platelet Count 174 K/mm3 (150-450); RBC Distribution Width CV 13.4 % (11.6-14.6); Red Blood Count 4.77 M/mm3 (4.6-6.2)
== END ==
PROVIDERS: PCP Family Medicine; Referring Provider Nurse Practitioner Family; Visit Provider Nurse Practitioner Family
DX: I48.91 Unspecified atrial fibrillation (principal); Z98.890 Other specified postprocedural states
CPT/HCPCS: 36415; 85025

== ENCOUNTER 2021-10-07 16:45 | Emergency (ER) | payer OTHER, SELFPAY ==
[2021-10-07 16:46] VITALS: BP 148/89; PULSE 73; RESP 18; TEMP 36.2; O2SAT 97; BMI 32.1
--- NOTE | 2021-10-07 18:58 | ED.VIS.LOWEX ---
HPI History of Present Illness Chief Complaint: Lower Extremity Injury Detail of Chief Complaint: Atraumatic left calf/leg pain Informant: patient Onset/Context/Timing Onset: Days (Past weekend) Context: Sudden Onset Timing: Continuous Quality of Pain: Dull Location: Left calf Current Severity: Mild Maximum Severity: Moderate Worsened by: Ambulation Relieved by: Nothing Associated Symptoms Associated Symptoms: Negative for Parasthesia, Weakness and Loss of Funtion Narrative Narrative: Patient is a 60-year-old male with past medical history of paroxysmal atrial fibrillation, hypersomnia, who presents with atraumatic left calf pain. He was unaware that it was swollen. He denies history of PE or DVT. Is had no recent immobilization. No history of surgery. No family history of DVT or PE. Brother and father early age due to emphysema and lung cancer respectively. Mother and sister of Alzheimer's dementia. He denies chest pain. No shortness of breath or dyspnea on exertion. He has no other complaints. Tetanus Immunization: Unknown Recent Illness/Hospitalization: No PFSH PFSH Medical History Acute cholecystitis Acute renal insufficiency Chest pain Hypersomnia MRSA infection New onset atrial fibrillation Paroxysmal atrial fibrillation right ring finger infection Tenosynovitis of finger Home Medications NK 10/07/21 [History Last Taken Unknown] Allergy/AdvReac Type Severity Reaction Status Date / Time Iodinated Contrast Media AdvReac Other Verified 10/07/21 16:48 [CONTRASTS] Family History Mother Alzheimer's disease Father Brain tumor S/P lobectomy of lung S/p nephrectomy Cancer Brother COPD (chronic obstructive pulmonary disease) Sister Alzheimer's disease Surgical History History of cardioversion (01/03/20) History of cholecystectomy (06/20/19) History of colonoscopy (11/27/16) history of finger surgery History of tonsillectomy and adenoidectomy Social History (Updated 10/07/21 @ 19:[address] Nicolas Perry MD) household members: spouse Smoking Status: Never smoker substance use type: does not use ROS ROS ED Constitutional Constitutional ED: Denies chills, fever(s), subjective or sweats Cardiovascular Cardiovascular: Denies chest pain, orthopnea, palpitations, paroxysmal nocturnal dyspnea or racing heartbeat Respiratory/Chest Respiratory/Chest: Denies cough, dyspnea, dyspnea on exertion, orthopnea or paroxysmal nocturnal dyspnea Gastrointestinal Gastrointestinal: Denies nausea or vomiting Musculoskeletal Musculoskeletal: Denies arthralgias, back pain, myalgias or neck pain Integumentary Denies rash Hematologic/Lymphatic Hematologic/Lymphatic: Denies easy bleeding or easy bruising EXAM Physical Exam Const Vital Signs: 10/07/21 16:46 Temperature 97.2 F L Temperature Source Temporal Pulse Rate 73 Respiratory Rate 18 Blood Pressure 148/89 H Blood Pressure Mean 108 Pulse Ox 97 Oxygen Delivery Method Room Air Positive well nourished and well developed General Appearance ED: well developed and NAD HEENT normocephalic and atraumatic Neck full ROM Resp normal respiratory effort, no retractions and clear to auscultation bilaterally Cardio regular rate, regular rhythm, S1 normal heart sound, S2 normal heart sound and no murmurs Extremity full ROM; Negative for normal to inspection Extremity Narrative: There is swelling of the left leg/calf. There is slight discoloration. There may be prominence leg pain. There is tenderness under stress deep venous system. There is no palpable cords. General Extremety ED: Yes edema; Negative for cyanosis or weight-bearing difficulty General Extremity: edema; Negative for cyanosis or weight-bearing difficulty Neuro oriented x3 and moves all extremities Sensorium / Orientation: alert Psych mental status grossly normal Skin no wounds Lesions: no lesions Rashes: no rashes MDM MDM MDM Narrative Medical decision making narrative: With atraumatic leg pain and a well score of +3, high pretest probability venous duplex study was obtained. This may represent a muscle strain as well. Radiography Diagnostic Testing: Clinical Impression(s) from Imaging Studies Venous Duplex 10/07/21 19:02 IMPRESSION: There is no demonstrated deep venous thrombosis. Please see technologist report in PACS for further details for their impression/ worksheet/ details/ etc. Electronically Signed: Matthieu Junior MD at 19:44 EST , Service support , Treatment and Re-Evaluation Comments:: Patient was informed that his venous duplex study was negative. Suspect he has a muscle strain. Ice, rest and Tylenol. Discharge Plan Triage Chief Complaint: Lower Extremity Injury ED Provider: Nicolas Perry Dx/Rx/DC Orders Clinical Impression: Swelling of left lower extremity, Acute pain of left lower extremity Instructions: ED RICE Prescriptions: No Action NK RF: 0 Primary Care Provider: Kenneth Vela Referrals: Kenneth Vela MD [Primary Care Provider] - 1 Week if not improving Disposition Disposition: Home, Self Care
--- NOTE | 2021-10-07 19:02 | US_ITS ---
STUDY: VENOUS DOPPLER ULTRASOUND - LEFT LOWER EXTREMITY REASON FOR EXAM: Male, 60 years old. LEG PAIN AND SWELLING LT LEG PAIN/ SWELLING TECHNIQUE: Ultrasound evaluation of the deep vein system to include edwards-scale imaging and compression was performed. Edwards-scale imaging and Doppler sonographic evaluation, including duplex spectral analysis and qualitative color flow sonography, was performed. COMPARISON: None. FINDINGS: Common Femoral Vein: Normal compression, spontaneity and augmentation. Normal color Doppler. Common Femoral Vein/Greater Saphenous Junction: Normal compression, spontaneity and augmentation. Normal color Doppler. Superficial Femoral Proximal: Normal compression, spontaneity and augmentation. Normal color Doppler. Superficial Femoral Middle: Normal compression, spontaneity and augmentation. Normal color Doppler. Superficial Femoral Distal: Normal compression, spontaneity and augmentation. Normal color Doppler. Popliteal Vein: Normal compression, spontaneity and augmentation. Normal color Doppler. Posterior Tibial Vein: Normal compression, spontaneity and augmentation. Normal color Doppler. Peroneal Vein: Normal compression, spontaneity and augmentation. Normal color Doppler. There is no demonstrated deep venous thrombosis. US/Venous Duplex Imag/Limited/Uni IMPRESSION: There is no demonstrated deep venous thrombosis. Please see technologist report in PACS for further details for their impression/ worksheet/ details/ etc. Electronically Signed: Matthieu Junior MD at 19:44 EST , Service support ,
== END 2021-10-07 20:12 | disposition home or self-care (01) ==
PROVIDERS: Emergency Provider Emergency Medicine; PCP Family Medicine
DX: M79.662 Pain in left lower leg (principal); M79.89 Other specified soft tissue disorders; I48.0 Paroxysmal atrial fibrillation; G47.10 Hypersomnia, unspecified; Z87.19 Personal history of other diseases of the digestive system; Z86.14 Personal history of Methicillin resistant Staphylococcus aureus infection
CPT/HCPCS: 93971; 99282

== ENCOUNTER 2021-12-01 17:22 | Outpatient (CLI) | payer OTHER, SELFPAY ==
[2021-12-01 17:26] VITALS: BP 149/84; PULSE 79; RESP 16; TEMP 36.9; O2SAT 99; BMI 34.2
[2021-12-01] MEDS: 0.9% Saline Lock 10 ML Syringe IV (17:30)
[2021-12-01 18:43] VITALS: BP 127/84; PULSE 70; RESP 16; TEMP 36.8; O2SAT 97
[2021-12-01 19:41] VITALS: BP 124/86; PULSE 63; RESP 16; TEMP 36.8; O2SAT 98
== END 2021-12-01 23:59 | disposition home or self-care (01) ==
LOC: MS3OUT 17:22 → MS3 17:23
PROVIDERS: PCP Family Medicine; Referring Provider Nurse Practitioner Adult Health; Visit Provider Nurse Practitioner Adult Health
DX: Z23 Encounter for immunization (principal); U07.1 COVID-19
CPT/HCPCS: J7050; M0245; Q0245; A4216

== ENCOUNTER 2023-08-14 08:05 | Emergency (ER) | payer OTHER, SELFPAY ==
[2023-08-14 08:05] VITALS: BP 136/94; PULSE 64; RESP 18; TEMP 35.9; O2SAT 96; BMI 35.2
--- NOTE | 2023-08-14 08:16 | RAD_ITS ---
INDICATION: Trauma EXAMINATION/TECHNIQUE: X-RAY - RIGHT XR Hand Min 3 Views 3 VIEWS COMPARISON: No relevant prior comparison study available FINDINGS: SOFT TISSUES: No soft tissue swelling or gas. No radiopaque foreign body. BONES/JOINTS: No acute fracture or subluxation.. Normal alignment. Widening of the scapholunate joint could be normal variant or less likely ligamentous laxity. Degenerative arthrosis of the distal interphalangeal joint of the finger.. No sclerotic or destructive changes observed. RAD/Hand Min 3 Views IMPRESSION: No evidence of acute fracture as described above. Electronically Signed: Javier Szymanski MD at 10:01 EDT ,
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
[2023-08-14] MEDS: Ibuprofen 400 MG Tablet 800 MG PO (08:44)
[2023-08-14] MEDS: Diphth,Pertuss(Acell),Tet Vac 0.5 ML Vial IM (08:44)
== END 2023-08-14 10:24 | disposition home or self-care (01) ==
PROVIDERS: Emergency Provider Emergency Medicine; PCP Family Medicine; Visit Provider Emergency Medicine
DX: S60.011A Contusion of right thumb without damage to nail, initial encounter (principal); S30.811A Abrasion of abdominal wall, initial encounter; A36.9 Diphtheria, unspecified; Z23 Encounter for immunization; A37.90 Whooping cough, unspecified species without pneumonia; V50.0XXA Driver of pick-up truck or van injured in collision with pedestrian or animal in nontraffic accident, initial encounter; W22.11XA Striking against or struck by driver side automobile airbag, initial encounter; Y92.410 Unspecified street and highway as the place of occurrence of the external cause; Z90.49 Acquired absence of other specified parts of digestive tract
CPT/HCPCS: 73130; 90471; 90715; 99282

== ENCOUNTER 2025-04-30 15:04 | Emergency (ER) | payer OTHER, SELFPAY ==
[2025-04-30 15:04] VITALS: BP 107/85; PULSE 59; RESP 14; TEMP 36.2; O2SAT 98; BMI 33.0
--- NOTE | 2025-04-30 15:54 | ED.RN ---
spouse upset about wait in waiting room. pt had ekg in triage. attempted to explain to spouse that the ekg had been done and that we would room the pt as soon as possible. another pt waiting was giving her opinion as to who should be roomed first because she was listening to people as they came in the doors.
--- NOTE | 2025-04-30 15:56 | EKG12_ITS ---
Test Reason : afib Blood Pressure : */* mmHG Vent. Rate : 143 BPM Atrial Rate : * BPM P-R Int : * ms QRS Dur : 88 ms QT Int : 312 ms P-R-T Axes : * 10 86 degrees QTcB Int : 481 ms Critical Test Result: High HR Atrial fibrillation with rapid ventricular response Abnormal ECG Confirmed by LUIS ALFREDO SOMERS, FERNIE ([id number]), research editor BRIANNE BRAUN ([id number]) on 05/01/2025 11:14:29 AM Referred By: Lee Jaeger Confirmed By: FERNIE LOBATO MD
--- NOTE | 2025-04-30 15:57 | EX.ED.DYSGE1 ---
HPI History of Present Illness Chief Complaint: Palpitations Narrative Narrative: 64-year-old male presents with lightheadedness and palpitations consistent with his previous atrial fibrillation that he has had since yesterday evening around 6:30 PM. This was approximately 22 hours ago. He relates history that around 8 years ago he was diagnosed with atrial fibrillation. He went to his primary care provider's office because he thought he had bronchitis. He was sent to the emergency department for atrial fibrillation. He was started on Eliquis and metoprolol he believes, and was cardioverted 3 weeks later. He followed up with Dr. Mansfield with [facility], who took him off all the medications because he had not had atrial fibrillation in quite some time. Additionally, he saw Dr. Moss recently, and did not have any episodes of atrial fibrillation for approximately 8 years. Yesterday, he was working outside, states he bent over and felt lightheaded. Since then he has had occasional feelings of heart palpitations and lightheadedness but denies any chest pain or shortness of breath. No exacerbating or alleviating factors. He went to his primary care provider's office and was found to be in atrial fibrillation with RVR. [facility] Medical History Paroxysmal atrial fibrillation Hypersomnia Chest pain New onset atrial fibrillation Acute cholecystitis Acute renal insufficiency MRSA infection right ring finger infection Tenosynovitis of finger Home Medications ?Medication ?Instructions ?Recorded ?Last Taken ?Type apixaban 5 mg tablet (Eliquis) 5 mg PO BID #60 tabs 04/30/25 Unknown Rx metoprolol tartrate 50 mg tablet 50 mg PO BID #60 tabs 04/30/25 Unknown Rx Allergy/AdvReac Type Severity Reaction Status Date / Time Iodinated Contrast Media AdvReac Other Verified 04/30/25 15:04 (CONTRASTS) Family History Mother Alzheimer's disease Father Brain tumor S/P lobectomy of lung S/p nephrectomy Cancer Brother COPD (chronic obstructive pulmonary disease) Sister Alzheimer's disease Surgical History History of cardioversion (01/03/20) History of tonsillectomy and adenoidectomy History of colonoscopy (11/27/16) history of finger surgery History of cholecystectomy (06/20/19) Social History household members: spouse Smoking Status: Never smoker substance use type: does not use ROS ROS ED ROS Narrative Review of systems positive for palpitations and lightheadedness. No chest pain or shortness of breath, no leg swelling. No exacerbating or alleviating factors. No fevers or chills, no cough. Feels similar to previous atrial fibrillation. EXAM Physical Exam Narrative Exam Narrative: Afebrile. Vital signs noted. Nontoxic-appearing. Cardiovascularly the examination reveals an irregularly irregular tachycardia. Lungs clear to auscultation bilaterally. Abdomen is soft and nontender with positive bowel sounds. Neurological examination nonfocal nonlateralizing. No pedal edema appreciated. Const Vital Signs: 04/30/25 15:04 04/30/25 16:02 04/30/25 16:13 Temperature 97.1 F L Temperature Source Temporal Pulse Rate 59 L 128 H 89 Respiratory Rate 14 18 18 Blood Pressure 107/85 H 103/76 102/85 H Blood Pressure Mean 92 85 90 Pulse Ox 98 99 98 Oxygen Delivery Method Room Air Room Air Room Air 04/30/25 16:46 04/30/25 18:01 Temperature Temperature Source Pulse Rate 99 98 Respiratory Rate 22 H Blood Pressure 95/72 96/69 Blood Pressure Mean 79 78 Pulse Ox 95 Oxygen Delivery Method Room Air MDM MDM MDM Narrative Medical decision making narrative: Differential diagnosis includes but not limited to A-fib without versus sinus tachycardia with PVCs. EKG obtained and interpreted by myself independently as A-fib with RVR to [address] changes. No STEMI. I will obtain CBC, CMP, as well as magnesium. I do not feel he requires a troponin. He is not having chest pain. Rate control will be attempted with labetalol 20 mg intravenously. After metoprolol, heart rate is now in the 80s to 90s. I reviewed his laboratory work and he has normal white count of 7.7 with hemoglobin normal at 16.1, hematocrit 47.6, platelet count 223. BUN elevated slightly at 23 with creatinine 1.17, glucose appropriately elevated at 121 with normal anion gap of 10. LFTs are grossly unremarkable. Chest x-ray interpreted by myself independently shows no pneumonia or pneumothorax. I reviewed the radiology report which confirms my independent interpretation. I discussed the patient with Dr. Mcneil with cardiology. He was also made aware of the patient's current heart rate and soft blood pressure of 96/69. It was not felt that he needed emergent cardioversion. He prefers that the patient be placed on metoprolol tartrate 50 mg twice a day as well as Eliquis 5 mg twice a day. He is to call the office tomorrow for an appointment. As he is rate controlled, I feel he can be discharged to follow-up. He was given his first dose of the medication here in the emergency department. Return instructions to the emergency department were reviewed. Disposition is discharged home in stable condition. History & Record Review Discussion w/independent historian: Patient and Family () Additional record(s) reviewed:: Prior ED visit Lab Data Attestation: I reviewed the patient's lab results. Labs: Laboratory Results - last 24 hr 04/30/25 16:00 WBC 7.7 RBC 5.18 Hgb 16.1 Hct 47.6 MCV 91.9 MCH 31.1 MCHC 33.8 RDW Std Deviation 46.1 H RDW Coeff of Mariola 13.6 Plt Count 223 MPV 10.2 Immature Gran % (Auto) 0.400 Neut % (Auto) 56.1 Lymph % (Auto) 37.0 [place] % (Auto) 4.4 Eos % (Auto) 1.2 Baso % (Auto) 0.9 Absolute Neuts (auto) 4.4 Absolute Lymphs (auto) 2.86 Nucleated RBC % 0 Sodium 136 Potassium 4.6 Chloride 105 Carbon Dioxide 22.0 Anion Gap 10 BUN 23 H Creatinine 1.17 Estim Creat Clear Calc 88.81 Est GFR (MDRD) Non-Af 70 BUN/Creatinine Ratio 19.4 Glucose 121 H Calcium 9.2 Magnesium 2.0 Total Bilirubin 0.68 AST 28 ALT 24 Alkaline Phosphatase 75 Total Protein 6.5 Albumin 3.8 Globulin 2.7 Albumin/Globulin Ratio 1.4 Radiography Chest X-Ray - ED: 1 View, Read by ED Physician, Read by Radiologist, No Acute Disease and No Infiltrates Diagnostic Testing: Clinical Impression(s) from Imaging Studies Chest X-Ray 04/30/25 16:00 IMPRESSION: No focal consolidations. Reading Location: [facility] Management Discussion w/another healthcare provider: [employer] (Dr. Mcneil, cardiology) Discharge Plan Triage Chief Complaint: Palpitations ED Provider: Lee Jaeger Dx/Rx/DC Orders Clinical Impression: Paroxysmal atrial fibrillation, Atrial fibrillation with RVR Instructions: ED AFIB Prescriptions: New Eliquis 5 mg tablet 5 mg PO BID Qty: 60 0RF metoprolol tartrate 50 mg tablet 50 mg PO BID Qty: 60 0RF Primary Care Provider: Kenneth Vela Referrals: Arben Mcneil MD [Med Staff - Active Staff] - 1 Day Kenneth Vela MD [Primary Care Provider] - Activity Restrictions/Additional Instructions: Take the metoprolol and Eliquis as you had previously done, 50 mg metoprolol twice a day by mouth and the Eliquis 5 mg twice a day by mouth. Return to the emergency department with elevated heart rate above 120 bpm consistently. Call cardiology, Dr. Mcneil tomorrow for an appointment. Return to the emergency department with new or worsening symptoms including heart palpitations, syncope, and/or chest pain. Print Language: Turkish Disposition Disposition: Home, Self Care
--- NOTE | 2025-04-30 16:00 | RAD_ITS ---
PROCEDURE: CHEST 1 VIEW (PORTABLE) 04/30/2025 REASON FOR EXAM: DYSRHYTHMIA TECHNIQUE: Frontal view of the chest. COMPARISON: 12/06/2019 FINDINGS: No focal consolidation. No pleural effusion or pneumothorax. Cardiac silhouette is within normal limits. RAD/Chest 1 View (Portable) IMPRESSION: No focal consolidations. Reading Location: [id number]
[2025-04-30 16:02] VITALS: BP 103/76; PULSE 128; RESP 18; O2SAT 99
[2025-04-30] MEDS: Labetalol 20 MG/4 ML Vial IV (16:10)
[2025-04-30 16:13] VITALS: BP 102/85; PULSE 89; RESP 18; O2SAT 98
[2025-04-30 16:16] LABS: Absolute Lymphocyte Count 2.86 X10^3/uL (0.83-4.51); Absolute Neutrophil Count 4.4 X10^3/uL (2.0-7.7); Basophil# 0.07 X10^3/uL; Basophil% 0.9 % (0-1); Eosinophil# 0.09 X10^3/uL; Eosinophils% 1.2 % (0-5); Hematocrit 47.6 % (40-54); Hemoglobin 16.1 g/dL (13.0-16.5); Lymphocyte # 2.86 X10^3/ul (0.83-4.51); Mean Corp Hgb Conc 33.8 g/dL (32-36); Mean Corpuscular Hgb 31.1 pg (27.0-32.0); Mean Corpuscular Volume 91.9 fL (80-94); Mean Platelet Vol. 10.2 fl (6.2-12.0); Monocyte# 0.34 X10^3/uL; Monocyte% 4.4 % (0-10); NRBC Flagged by Analyzer 0 % (0-5); Neutrophil # 4.35 X10^3/uL (2.7-7.7); Neutrophil % 56.1 % (47-70); Platelet Count 223 K/mm3 (150-450); RBC Distribution Width CV 13.6 % (11.6-14.6); RBC Distribution Width SD 46.1 fl (35.1-43.9); Red Blood Count 5.18 M/mm3 (4.6-6.2); White Blood Count 7.7 K/mm3 (4.4-11.0)
[2025-04-30 16:39] LABS: ALB/GLOB Ratio 1.4 RATIO (0.9-2.4); AST(SGOT) 28 U/L (<=37); Alanine Aminotransfer ALT/SGPT 24 U/L (<=46); Albumin, Serum 3.8 g/dL (3.4-4.8); Alkaline Phosphatase 75 U/L (40-129); Anion Gap 10 (5-15); BUN 23 mg/dL (4-19); BUN/Creat Ratio 19.4 RATIO (10-20); Calcium,Total 9.2 mg/dL (7.6-11.0); Chloride 105 mmol/L (98-108); Creatinine, Serum 1.17 mg/dL (0.70-1.20); EST Glomerular Filtration Rate 70 (>60); Estimated Creatinine Clearance 88.81 ml/min (50-250); Globulin 2.7 g/dL (2.2-4.2); Glucose 121 mg/dL (70-99); Potassium 4.6 mmol/L (3.3-5.1); Protein, Total 6.5 g/dL (5.9-8.4); Sodium Level 136 mmol/L (133-145); Total Bilirubin 0.68 mg/dL (0.00-1.30)
[2025-04-30 16:46] VITALS: BP 95/72; PULSE 99
[2025-04-30] MEDS: Metoprolol Tartrate 50 MG Tablet PO (17:33)
[2025-04-30] MEDS: APIXABAN 5 MG TABLET PO (17:33)
[2025-04-30] MEDS: 0.9% Normal Saline (1000mL) 1,000 ML 999 ML IV (18:00)
[2025-04-30 18:01] VITALS: BP 96/69; PULSE 98; RESP 22; O2SAT 95
== END 2025-04-30 18:40 | disposition home or self-care (01) ==
PROVIDERS: Emergency Provider Emergency Medicine; PCP Family Medicine; Referring Provider Emergency Medicine; Visit Provider Emergency Medicine
DX: I48.0 Paroxysmal atrial fibrillation (principal); Z79.01 Long term (current) use of anticoagulants; R00.2 Palpitations; Z90.49 Acquired absence of other specified parts of digestive tract
CPT/HCPCS: 71045; 80053; 83735; 85025; 93005; 96361; 96374; 99285

== ENCOUNTER → 2025-05-02 | Outpatient (CLI) | payer OTHER, SELFPAY | END | disposition home or self-care (01) | LOC: LAB 12:14 | PROVIDERS: PCP Family Medicine; Referring Provider Student in an Organized Health Care Education/Training Program; Visit Provider Student in an Organized Health Care Education/Training Program | DX: I48.91 Unspecified atrial fibrillation (principal) | CPT/HCPCS: 36415; 84443 ==

== ENCOUNTER 2025-05-04 03:20 | Emergency (ER) | payer OTHER, SELFPAY ==
[2025-05-04 03:22] VITALS: BP 114/85; PULSE 64; RESP 16; TEMP 36.5; O2SAT 98; BMI 33.1
--- NOTE | 2025-05-04 03:35 | EX.ED.DYSGE1 ---
HPI History of Present Illness Chief Complaint: General Illness Narrative Narrative: Chief complaint and HPI: Chest pain. 64-year-old male with proximal atrial fibrillation on Eliquis with history of cardioversion presents for evaluation of chest pain. History taken by patient as well as medical record. Patient was recently off all of his medications for atrial fibrillation until recently when he was found in atrial fibrillation with RVR. He was seen in our emergency department on 04/30/2025. At that time was rate controlled with IV labetalol. Cardiology was consulted and plan was for metoprolol 50 mg twice daily as well as Eliquis. Plan to follow-up outpatient in office. Patient followed up with cardiology on 05/02. I reviewed the note. Plan is for pharmacological nuclear stress test and cardioversion once anticoagulated for 30 days. Also had thyroid function test ordered. Previous stress echo was in 2019 showed an EF of 65%. And negative for ischemia. Patient states this evening he was outside cleaning the windows when he became lightheaded, diaphoretic, and fatigued. He went inside and his checked his blood pressure and states that his SBP was in the 80s and he was tachycardic in the 110s. He states he then took a long nap. Patient states he is just felt generally fatigued all day. States his evening he developed chest pain which is why presents. Chest pain resulted in the car. He denies any fever, chills, shortness of breath, abdominal pain, nausea, vomiting. Review of systems: See HPI Medications: As listed on the chart Allergies: As listed on the chart PFSH: Per chart Vital signs: As listed on the chart. Reviewed. Physical exam: Gen: A&O x3, NAD Head: Normocephalic, atraumatic Eyes: No sclera icterus, conjunctiva clear ENT: Moist mucous membranes Neck: Trachea midline, No JVD CV: Irregular irregular rhythm, normal rate, no murmurs, no peripheral edema Resp: Lungs CTA BL, no w/r/c GI: Abd soft, non-distended, non-tender, no r/r/g Musc: Full ROM, no deformity Skin: Warm, dry Neuro: Alert, oriented, grossly intact, sensation intact Psych: Cooperative, appropriate mood and affect [facility] History Paroxysmal atrial fibrillation Hypersomnia Chest pain New onset atrial fibrillation Acute cholecystitis Acute renal insufficiency MRSA infection right ring finger infection Tenosynovitis of finger Home Medications ?Medication ?Instructions ?Recorded ?Last Taken ?Type apixaban 5 mg tablet (Eliquis) 5 mg PO BID #60 tabs 04/30/25 Unknown Rx metoprolol tartrate 25 mg tablet 25 mg PO BID 30 days #60 tabs 05/04/25 Unknown Rx sertraline 50 mg tablet 50 mg PO DAILY 05/04/25 Unknown History Allergy/AdvReac Type Severity Reaction Status Date / Time Iodinated Contrast Media AdvReac Other Verified 05/04/25 03:21 (CONTRASTS) Family History Mother Alzheimer's disease Father Brain tumor S/P lobectomy of lung S/p nephrectomy Cancer Brother COPD (chronic obstructive pulmonary disease) Sister Alzheimer's disease Surgical History History of cardioversion (01/03/20) History of tonsillectomy and adenoidectomy History of colonoscopy (11/27/16) history of finger surgery History of cholecystectomy (06/20/19) Social History household members: spouse Smoking Status: Never smoker substance use type: does not use EXAM Physical Exam Const Vital Signs: 05/04/25 03:22 05/04/25 03:22 05/04/25 03:28 Temperature 97.7 F L Temperature Source Oral Pulse Rate 64 Respiratory Rate 16 Respiratory Effort Normal Non-Labored Normal Non-Labored Respiratory Pattern Irregular Blood Pressure 114/85 H Blood Pressure Mean 94 Pulse Ox 98 Oxygen Delivery Method Room Air 05/04/25 05:21 Temperature Temperature Source Pulse Rate 73 Respiratory Rate 15 Respiratory Effort Respiratory Pattern Blood Pressure 112/86 H Blood Pressure Mean 94 Pulse Ox 94 Oxygen Delivery Method Room Air MDM MDM MDM Narrative Medical decision making narrative: 64-year-old male with proximal atrial fibrillation on Eliquis with history of cardioversion presents for evaluation of chest pain. Associated symptoms are intermittent hypotension, fatigue. History taken by patient as well as medical record, see HPI. Differential diagnosis includes but is not limited to metoprolol side effect, symptomatic atrial fibrillation, atrial fibrillation with RVR, ACS, electrolyte abnormality, CHF. Aspirin ordered for symptoms. Cardiology workup ordered. Previous labs show a unremarkable TSH on 05/02. EKG and chest x-ray reviewed see below. CBC without leukocytosis or anemia. BMP unremarkable. Magnesium level unremarkable. BNP mildly elevated at 957. Patient not overtly fluid overloaded on chest x-ray or physical exam. Troponin unremarkable x 2. On reevaluation, patient is no longer having chest pain. He has a heart score of 3. Given his episode of hypotension, symptoms and being expelled blushed with cardiology, cardiology was consulted. I spoke to Dr. Garsia. Plan is to decrease metoprolol to 25 twice daily and follow-up in the office. Patient was updated of all results and confirmed understanding of plan. Patient was educated to monitor his blood pressure and symptoms. Return back to the ED if symptoms change or worsen. Patient stable to discharge home. EKG: Interpreted by me/EM physician: EKG shows atrial fibrillation without any acute ischemic changes. Heart rate 69. Diagnostic: Interpreted by me/EM physician: Chest x-ray without pneumonia, effusion, cardiomegaly, pneumothorax. Radiology in agreement. Impression: 1. Chest pain 2. History of atrial fibrillation 3. Reported hypotension Lab Data Labs: Laboratory Results - last 24 hr 05/04/25 05/04/25 03:33 05:40 WBC 6.6 RBC 4.93 Hgb 15.5 Hct 45.2 MCV 91.7 MCH 31.4 MCHC 34.3 RDW Std Deviation 45.6 H RDW Coeff of Mariola 13.5 Plt Count 227 MPV 10.7 Immature Gran % (Auto) 0.500 Neut % (Auto) 44.1 L Lymph % (Auto) 48.3 H [place] % (Auto) 4.5 Eos % (Auto) 1.7 Baso % (Auto) 0.9 Absolute Neuts (auto) 2.9 Absolute Lymphs (auto) 3.19 Nucleated RBC % 0 Sodium 136 Potassium 4.3 Chloride 101 Carbon Dioxide 23.2 Anion Gap 12 BUN 17 Creatinine 1.06 Estim Creat Clear Calc 98.24 Est GFR (MDRD) Non-Af 79 BUN/Creatinine Ratio 15.7 Glucose 123 H Calcium 9.4 Magnesium 2.2 Troponin T High Sens 8 Troponin T Hi Sens 2 Hr 8 NT pro BNP II 957 H Radiography Diagnostic Testing: Clinical Impression(s) from Imaging Studies Chest X-Ray 05/04/25 04:10 IMPRESSION: No acute chest findings Reading Location: [place] [id number] Discharge Plan Triage Chief Complaint: General Illness Other Complaint: Palpitations ED Provider: Morro Hodges Dx/Rx/DC Orders Clinical Impression: Chest pain Instructions: ED Chest Pain, Uncertain Cause Prescriptions: New metoprolol tartrate 25 mg tablet 25 mg PO BID 30 Days Qty: 60 0RF Discontinued metoprolol tartrate 50 mg tablet 50 mg PO BID Qty: 60 0RF No Action sertraline 50 mg tablet 50 mg PO DAILY Eliquis 5 mg tablet 5 mg PO BID Qty: 60 0RF Stand Alone Forms: ED Work / School Excuse Primary Care Provider: Kenneth Vela Referrals: Ole Moss MD [Med Staff - Active Staff] - 3-5 Days Kenneth Vela MD [Primary Care Provider] - 3-5 Days Activity Restrictions/Additional Instructions: Metoprolol was changed to 25 mg twice daily. Continue to monitor your blood pressure and your symptoms. Return back to the ED if symptoms change or worsen. Follow-up with cardiology. Call tomorrow to make an appointment. Print Language: Korean Disposition Disposition: Home, Self Care
[2025-05-04] MEDS: Aspirin 81 MG TAB.CHEW 324 MG PO (03:40)
--- OUTSIDE RECORDS SUMMARY | 2025-05-04 03:45 | XMS RPT_ITS | CCD ---
Author Organization [facility] Care Team Providers Care Lockstitch Collar Setter Name Role Phone SHELIA PALMA Referring Unavailable SHELIA PALMA Admitting Unavailable SHELIA PALMA Admitting Unavailable SHELIA PALMA Referring Unavailable Kenneth Beckett MD Primary Care Provider Kenneth Beckett MD Primary Care Provider Kenneth Beckett MD Primary Care Provider Kenneth Beckett MD Primary Care Provider Kenneth Beckett MD Primary Care Provider Unavailable Primary Care Provider UnavailKenneth Haskins MD Primary Care Provider STEPHEN KINCAID Attending Unavailable KENNETH BECKETT Primary Care Unavailable Haagen MANAGER DRUG SAFETY.Yennifer MONK Unavailable Suppan MANAGER DRUG SAFETY.ALESHIA, Hanh A Unavailable Suppan MANAGER DRUG SAFETY.ALESHIA, Hanh A Unavailable [phone] JHON GARCIA Attending Unavailable ZEKE, EDINSON Attending Unavailable ZEKE, EDINSON Referring Unavailable ZEKE, EDINSON Admitting Unavailable ZEKE, EDINSON Attending Unavailable ZEKE, EDINSON Attending Unavailable KENNETH BECKETT Primary Care Unavailable AARON GARIBAY Attending Unavailable KENNETH BECKETT Primary Care Unavailable KENNETH BECKETT Primary Care Unavailable Kenneth Beckett MD Primary Care Provider KENNETH BECKETT Primary Care Unavailable Suppan MANAGER DRUG SAFETY.ALESHIA Hanh A Unavailable [phone] Dr. Kenneth Beckett MD Primary Care Provider Dr. Kenneth Beckett MD Referring Provider Dr. Ole Moss MD Attending Provider Lee Jaeger MD Referring Provider [phone] Lee Jaeger MD Emergency Provider [phone] SOPHY, KENNETH Angeles Attending Unavailable SOPHY, KENNETH J Primary Care Unavailable SHIREEN VALE Referring Unavailable SOPHY, KENNETH J Primary Care Unavailable SOPHY, KENNETH J Primary Care Unavailable YENNIFER WORRELL Attending Unavailable SOPHY, KENNETH J Primary Care Unavailable HANH SHARMA Attending Unavailable SOPHY, KENNETH J Primary Care Unavailable ROMEL MAS Attending Unavailable EDITH, HANH A Referring Unavailable SOPHY, KENNETH J Primary Care Unavailable SUPPAN, HANH A Referring Unavailable SOPHY, KENNETH J Primary Care Unavailable HANH SHARMA Attending Unavailable SOPHY, KENNETH J Primary Care Unavailable SOPHY, KENNETH J Referring Unavailable SOPHY, KENNETH J Primary Care Unavailable YENNIFER WORRELL Attending Unavailable SOPHY, KENNETH J Primary Care Unavailable YENNIFER WORRELL Referring Unavailable SOPHY, KENNETH J Primary Care Unavailable Shashi Clifton Attending Provider Sophy, Kenneth Primary Care Unavailable Sophy, Kenneth Referring Unavailable Shashi Yeh Attending Unavailable Lee Jaeger Attending Unavailable Lee Jaeger Referring Unavailable Mondamin, Kenneth Primary Care Unavailable Sophy, Kenneth Primary Care Unavailable Shashi Yeh Attending Unavailable Shashi Yeh Referring Unavailable Mondamin, Kenneth Primary Care Unavailable Sophy, Kenneth Referring Unavailable Ole Moss Attending Unavailable Allergies Allergy Classification Reported Allergen(s) Allergy Type Date of Onset Reaction(s) Facility (20 sources) Iodinated Contrast Media; Translations: [IODINATED CONTRAST MEDIA] Drug Allergy 04-13-20 17 Other: See Comments, Other [facility] (1 source) Diatrizoate Drug Allergy 09-05-20 [facility] (2 sources) Triiodobenzoic Acids Propensity to adverse reactions 04-30-20 Other [facility] Comment on above: Patient developed AT N after administration of IV contrast with underlying normal kidney function (Cr 1.0 before contrast with normal ABP) (1 source) Iodinated Contrast Media Drug allergy (disorder) 05-02-20 [facility] Repository Medications Current Medications Medication Drug Class(es) Dates Sig (Normalized) Sig (Original) [id number] 200 actuat albuterol 0.09 mg/actuat metered dose inhaler (17 sources) beta2-Adrenergic Agonist Start: 12-27-2023 take 2 puff(s) by inhalation every four hours as needed for wheezing albuterol HFA (VENTOLIN HFA) 90 mcg/actuation inhaler Indications: Bronchitis Inhale 2 Puffs as instructed every 4 hours as needed for wheezing/shortnes s of breath. 1 Each 1 12/27/2023 Active Start: 12-10-2021 End: 07-23-2022 take 2 puff(s) by inhalation every six hours as needed for wheezing albuterol HFA (PROVENTIL HFA, VENTOLIN HFA) 90 mcg/actuation inhaler Inhale 2 Puffs as instructed every 6 hours as needed for wheezing/shortness of breath. 1 Inhaler 12/10/2021 07/23/2022 Discontinued (Other) Start: 12-28-2019 End: 12-10-2021 take 2 puff(s) by inhalation every four hours as needed albuterol HFA (PROVENTIL HFA, VENTOLIN HFA) 90 mcg/actuation inhaler Indications: Wheezing Inhale 2 Puffs as instructed every 4 hours as needed. 1 Inhaler 12/28/2019 12/10/2021 Discontinued Comment on above: Inhale 2 Puffs as in structed every 6 hours as needed for wheezing/shortness of breath. Inhale 2 Puffs as in structed every 4 hours as needed for wheezing/shortness of breath. amoxicillin 875 mg / clavulanate 125 mg oral tablet (6 sources) Penicillin-class Antibacterial Start: 02-20-20 End: 03-01-20 take 1 tablet by mouth every twelve hours amoxicillin-clavul anate potassium (AUGMENTIN) 875-125 mg per tablet Indications: Acute maxillary sinusitis, recurrence not specified Take 1 tablet by mouth every 12 hours for 10 days. 20 tablet 02/19/2025 03/01/2025 Active Start: 01-22-2025 End: 02-01-2025 take 1 tablet by mouth twice daily amoxicillin-clavulanate potassium (AUGMENTIN) 875-125 mg per tablet Indications: Acute maxillary sinusitis, recurrence not specified Take 1 tablet by mouth two times a day for 10 days. 20 tablet 01/22/2025 02/01/2025 Active Start: 06-23-2019 End: 06-26-2019 Amoxicillin-Pot Clavulanate 1 EACH tablet Discontinued 1 NMA PO TWICE A DAY 6 June 23, 2019 12:00am June 26, 2019 2:15pm apixaban 5 mg oral tablet (6 sources) Factor Xa Inhibitor Start: 04-30-2025 take 1 tablet by mouth twice daily Apixaban (Eliquis) 5 mg tablet Active 5 mg PO TWICE A DAY 60 April 30, 2025 12:00am Start: 12-07-2019 End: 10-24-2020 take 1 tablet by mouth twice daily Apixaban 5 mg tablet Discontinued 5 mg PO TWICE A DAY 60 December 12, 2019 10:33am October 24, 2020 4:48pm benzonatate 100 mg oral capsule (16 sources) Non-narcotic Antitussive Start: 12-22-2023 take 1 capsule by mouth every eight hours as needed benzonatate (TESSALON PERLES) 100 mg capsule Take 1 capsule by mouth three times a day as needed for cough. 21 capsule 05/29/2024 Active Start: 12-01-2021 End: 01-08-2022 take 1 capsule by mouth every eight hours as needed benzonatate (TESSALON PERLES) 100 mg capsule Take 1 capsule by mouth three times daily as needed for cough. 30 capsule 12/01/2021 01/08/2022 Discontinued Comment on above: Take 1 capsule by [facility] three times a day as needed for cough. cephalexin 500 mg oral capsule (1 source) Cephalosporin Antibacterial Start: 05-25-20 End: 06-01-20 take 1 capsule by mouth four times daily cephALEXin (KEFLEX) 500 mg capsule Indications: Skin infection Take 1 capsule by mouth four times daily for 7 days. 28 capsule 0 05/25/2022 06/01/2022 Active Comment on above: Take 1 capsule by [facility] four times daily for 7 days. cyclobenzaprine hydrochloride 10 mg oral tablet (2 sources) Muscle Relaxant Start: 09-05-20 End: 09-05-20 take 1 dose by mouth once 10 mg, Oral, ONCE, 1 dose, On 09/05/24 at 2100 Start: 09-05-2024 take 1 tablet by david th three times daily as needed for muscle spasms Cyclobenzaprine 10 MG tablet Indications: Acute bilateral low back pain without sciatica Take 1 tablet by mouth 3 times daily as needed for Muscle spasms. 21 tablet 09/05/2024 Active doxycycline hyclate 100 mg oral tablet (13 sources) Tetracycline-class Drug Start: 05-29-2024 End: 06-05-2024 take 1 tablet by mouth twice daily doxycycline (VIBRA-TABS) 100 mg tablet Take 1 tablet by mouth two times a day for 7 days. 14 tablet 0 05/29/2024 06/05/2024 Active Start: 12-22-2023 End: 12-29-2023 take 1 tablet by mouth twice daily doxycycline (VIBRA-TABS) 100 mg tablet Take 1 tablet by mouth two times a day for 7 days. 14 tablet 12/22/2023 12/29/2023 Start: 07-18-2023 End: 07-25-2023 take 1 tablet by mouth twice daily doxycycline (VIBRA-TABS) 100 mg tablet Indications: Left leg swelling Take 1 tablet by mouth twice daily for 7 days. 14 tablet 07/18/2023 07/25/2023 Start: 09-08-2022 End: 09-18-2022 take 1 tablet by mouth twice daily doxycycline (VIBRA-TABS) 100 mg tablet Indications: Bronchitis , Sinobronchitis Take 1 tablet by mouth twice daily for 10 days. 20 tablet 0 09/08/2022 09/18/2022 Active Start: 12-01-2021 End: 2021 take 1 tablet by mouth twice daily doxycycline (VIBRA-TABS) 100 mg tablet Indications: COVID-19 Take 1 tablet by mouth twice daily for 10 days. 20 tablet 12/01/2021 2021 Comment on above: Take 1 tablet by david th twice daily for 10 days. Take 1 tablet by david th twice daily for 7 days. Take 1 tablet by david th two times a day for 7 days. ibuprofen 600 mg oral tablet (1 source) Nonsteroidal Anti-inflammatory Drug Start: take 1 tablet by mouth every six hours for pain ibuprofen 600 mg tablet Indications: Bursitis of other bursa of right knee Take 1 tablet (600 mg) by mouth every 6 hours if needed for moderate pain (4 - 6) for up to 30 doses. 30 tablet 12/25/2024 Active metoprolol tartrate 50 mg oral tablet (9 sources) beta-Adrenergic Andry Start: take 1 tablet by mouth twice daily Metoprolol Tartrate 50 mg tablet Active 50 mg PO TWICE A DAY 60 April 30, 2025 12:00am Start: 12-07-2019 End: 10-24-2020 take 1 tablet by mouth twice daily Metoprolol Tartrate 25 mg tablet Discontinued 25 mg PO TWICE A DAY 60 December 12, 2019 10:34am October 24, 2020 4:48pm End: 01-08-2022 take 0.5 tablet by mouth twice daily metoprolol tartrate, short acting, (LOPRESSOR) 25 mg tablet Take 25 mg by mouth twice daily. Patient taking 1/2 tablet twice daily 01/08/2022 Discontinued mupirocin 0.02 mg/mg topical ointment (1 source) RNA Synthetase Inhibitor Antibacterial Start: 05-25-2022 End: 06-04-2022 mupirocin (BACTROBAN) 2 % ointment Indications: Skin infection Apply to affected area three times daily for 10 days. 22 g 0 05/25/2022 06/04/2022 Active Comment on above: Apply to affected ar ea three times daily for 10 days. naproxen 500 mg oral tablet (1 source) Nonsteroidal Anti-inflammatory Drug Start: 09-05-2024 take 1 tablet by mouth twice daily as needed naproxen 500 MG tablet Indications: Acute bilateral low back pain without sciatica Take 1 tablet by mouth 2 times daily as needed. 20 tablet 09/05/2024 Active phenylephrine hydrochloride 1 mg/ml / promethazine hydrochloride 1.25 mg/ml oral solution (3 sources) Phenothiazine, alpha-1 Adrenergic Agonist Start: 02-19-2025 End: 04-23-2025 take 5 mL by mouth four times daily as needed for congestion promethazine-PHEN YLephrine 6.25-5 mg/5 mL syrup Indications: Acute maxillary sinusitis, recurrence not specified Take 5 mL by mouth four times a day as needed (FOR CONGESTION AND POST NASAL DRIP; MAY CAUSE SEDATION ). 180 mL 02/19/2025 04/23/2025 Discontinued (Other) sertraline 50 mg oral tablet (20 sources) Serotonin Reuptake Inhibitor Start: 06-29-2023 End: 03-16-2025 take 1 tablet by mouth once daily sertraline (ZOLOFT) 50 mg tablet Indications: Anxiety and depression Take 1 tablet by mouth once daily. 90 tablet 1 03/16/2025 Active Start: 11-18-2022 End: 04-06-2023 take 1 tablet by mouth once daily sertraline (ZOLOFT) 50 mg tablet Indications: Anxiety and depression Take 1 tablet by mouth once daily. 30 tablet 1 04/06/2023 Active Comment on above: Take 1 tablet by david once daily. sulfamethoxazole 800 mg / trimethoprim 160 mg oral tablet (1 source) Dihydrofolate Reductase Inhibitor Antibacterial, Sulfonamide Antimicrobial Start: 05-22-20 End: 06-01-20 take 1 tablet by mouth twice daily sulfamethoxazole- trimethoprim (BACTRIM DS) 800-160 mg per tablet Indications: Skin infection Take 1 tablet by mouth twice daily for 10 days. 20 tablet 0 05/22/2022 06/01/2022 Active Comment on above: Take 1 tablet by david twice daily for 10 days. traMADol hydrochloride 50 mg oral tablet (4 sources) Opioid Agonist Start: 10-20-20 End: 10-23-20 take 1 tablet by mouth every six hours as needed for pain traMADol (Ultram) 50 MG tablet Indications: S/P carpal tunnel release Take 1 tablet (50 mg) by mouth every 6 hours as needed for severe pain (7-10) for up to 3 days. 12 tablet 10/20/2024 10/23/2024 Active Start: 09-05-2024 End: 09-10-2024 Oral, SEE ADMIN INSTRUCTIONS , Starting on Wed09/05/24 at 2057, Until Wed09/05/24 at 2315, Provide patient with 4 pack of Tramadol 50 mg, take 1 or 2 tabs by mouth every 4 hours as needed for pain. Nursing to document as GIVEN on the JAN and include comment of patient receipt of the 4 pack. Completed/Discontinued Medications Medication Drug Class(es) Dates Sig (Normalized) Sig (Original) acetaminophen 500 mg oral tablet (5 sources) Start: 10-20-2024 End: 10-20-2024 1,000 mg, Oral, Once, On Wed10/20/24 at 0915, For 1 dose, Preprocedure, Administer 60 minutes prior to surgery. Start: 06-20-2019 End: 01-08-2022 take 1 tablet by mouth every six hours as needed acetaminophen 650 mg CR tablet Take 1 tablet by mouth every 6 hours as needed for Pain or Fever. 06/20/2019 01/08/2022 Discontinued acetaminophen 325 mg / oxyCODONE hydrochloride 5 mg oral tablet (2 sources) Opioid Agonist Start: 04-14-2015 End: 06-26-2019 Oxycodone-Acetaminophen 1 TABLET tablet Discontinued 1 - 2 {tbl} PO 4 TIMES DAILY NEEDED as needed for PAIN 40 April 14, 2015 11:09am June 26, 2019 2:15pm acyclovir 50 mg/ml topical cream (4 sources) Herpesvirus Nucleoside Analog DNA Polymerase Inhibitor, Herpes Simplex Virus Nucleoside Analog DNA Polymerase Inhibitor, Herpes Zoster Virus Nucleoside Analog DNA Polymerase Inhibitor Start: 12-27-2023 End: 12-31-2023 acyclovir (ZOVIRAX) 5 % crea Indications: Recurrent cold sores Apply to affected area five times a day for 4 days. Apply to cold sore. 5 g 12/27/2023 12/31/2023 Comment on above: Apply to affected ar ea five times a day for 4 days. Apply to cold sore. aspirin 81 mg delayed release oral tablet (2 sources) Platelet Aggregation Inhibitor, Nonsteroidal Anti-inflammato ry Drug Start: 10-24-2020 End: 09-26-2021 take 1 tablet by mouth once daily Aspirin 81 mg tablet,delayed release (DR/EC) Discontinued 81 mg PO DAILY October 24, 2020 1:00am September 26, 2021 4:07pm On Hold: 01/22/2021 bisacodyl 5 mg delayed release oral tablet (2 sources) Stimulant Laxative Start: 09-02-2021 End: 01-08-2022 Bisacodyl (DULCOLAX) 5 mg tab Use as directed for Miralax / Gatorade Bowel Prep Kit 4 tablet 09/02/2021 01/08/2022 Discontinued calcium chloride 0.0014 meq/ml / potassium chloride 0.004 meq/ml / sodium chloride 0.103 meq/ml / sodium lactate 0.028 meq/ml injectable solution (2 sources) Start: 10-20-2024 End: 10-20-2024 take 50 mL intravenously every hour 50 mL/hr, IntraVENous, Continuous, Starting on Wed10/20/24 at 0915, Preprocedure, Upon admission to sameday - please start iv if patient does not have iv access. Use 500ml NS for patients on dialysis. cefuroxime 250 mg oral tablet (1 source) Cephalosporin Antibacterial Start: 01-08-2022 End: 01-18-2022 take 1 tablet by mouth twice daily cefUROXime (CEFTIN) 250 mg tablet Indications: Cough Take 1 tablet by mouth twice daily for 10 days. 20 tablet 01/08/2022 01/18/2022 codeine phosphate 2 mg/ml / guaiFENesin 20 mg/ml oral solution (1 source) Opioid Agonist Start: 11-24-2021 End: 12-01-2021 take 5-10 mL by mouth every six hours as needed for cough and cough codeine-guaiFENesin (ROBITUSSIN AC) 10-100 mg/5 mL syrup Indications: Cough Take 5-10 mL by mouth four times daily as needed for up to 7 days. May cause drowsiness. 100 mL 11/24/2021 12/01/2021 dextromethorphan hydrobromide 3 mg/ml / promethazine hydrochloride 1.25 mg/ml oral solution (6 sources) Phenothiazine, Uncompetitive R-gwzmfs-G-aspa rtate Receptor Antagonist, Sigma-1 Agonist Start: 11-21-2024 End: 02-19-2025 take 5 mL by mouth four times daily as needed Promethazine-DM (PHENERGAN-DM) 6.25-15 mg/5 mL syrup Indications: URI, acute , Diarrhea of presumed infectious origin Take 5 mL by mouth four times a day as needed. 120 mL 11/21/2024 02/19/2025 Discontinued (Course of therapy completed) 1 ml diphenhydrAMINE hydrochloride 50 mg/ml cartridge (2 sources) Histamine-1 Receptor Antagonist Start: 10-20-2024 End: 10-20-2024 12.5 mg, IntraVENous, Once PRN, itching, Starting on Wed10/20/24 at 1315, For 1 dose, Recovery (only) Gatorade Sports Drink (2 sources) Start: 09-02-2021 End: 01-08-2022 Gatorade Sports Drink Use as directed for Miralax / Gatorade Bowel Prep Kit 09/02/2021 01/08/2022 Discontinued 1 ml HYDROmorphone hydrochloride 1 mg/ml cartridge (4 sources) Opioid Agonist Start: 10-20-2024 End: 10-20-2024 0.5 mg, IntraVENous, Every 5 min PRN, severe pain (7-10), Starting on Wed10/20/24 at 1315, For 4 doses, Recovery (only), For Phase I. If Phase II oral narcotics have been administered in the last 60 minutes, do not administer IV narcotics unless specifically approved by provider. Start: 10-20-2024 End: 10-20-2024 0.25 mg, IntraVENous, Every 5 min PRN, moderate pain (4-6), Starting on Wed10/20/24 at 1315, For 4 doses, Recovery (only), For Phase I. If Phase II oral narcotics have been administered in the last 60 minutes, do not administer IV narcotics unless specifically approved by provider. 1 ml ketorolac tromethamine 30 mg/ml cartridge (1 source) Nonsteroidal Anti-inflammatory Drug, Cyclooxygenase Inhibitor Start: 09-05-2024 End: 09-05-2024 inject 1 dose by intramuscular injection once 30 mg, Intramuscular, ONCE, 1 dose, On Wed09/05/24 at 2100 labetalol (Normodyne,Trandate) injection 5 mg (2 sources) Start: 10-20-2024 End: 10-20-2024 labetalol (Normodyne,Trandate ) injection 5 mg 1 ml LORazepam 2 mg/ml injection (2 sources) Benzodiazepine Start: 10-20-2024 End: 10-20-2024 0.5 mg, IntraVENous, Once PRN, for anxiety or muscle spasm., Starting on Wed10/20/24 at 1315, For 1 dose, Recovery (only), For IV doses dilute dose with 1ml NS. 1 ml meperidine hydrochloride 25 mg/ml cartridge (2 sources) Opioid Agonist Start: 10-20-2024 End: 10-20-2024 12.5 mg, IntraVENous, Every 5 min PRN, shivering, Starting on Wed10/20/24 at 1315, For 2 doses, Recovery (only), May give every 5 minutes to max of 25mg. Notify Anesthesia Provider before administration. methylPREDNISolone (4 sources) Corticosteroid Start: 12-27-2023 End: 01-02-2024 methylPREDNISolone (MEDROL, TUAN,) 4 mg Dose-Pack Indications: Bronchitis Follow dosing instructions, take with food. 21 tablet 12/27/2023 01/02/2024 Start: 12-27-2023 End: 01-02-2024 methylPREDNISolone (MEDROL, TUAN,) 4 mg Dose-Pack Indications: Bronchitis Follow dosing instructions, take with food. 21 tablet 0 12/27/2023 01/02/2024 Start: 12-27-2023 End: 01-02-2024 methylPREDNISolone (MEDROL, TUAN,) 4 mg Dose-Pack Indications: Bronchitis Follow dosing instructions, take with food. 21 tablet 0 12/27/2023 01/02/2024 Active Comment on above: Follow dosing instru ctions, take with food. 2 ml ondansetron 2 mg/ml injection (4 sources) Serotonin-3 Receptor Antagonist Start: 10-20-2024 End: 10-20-2024 4 mg, IntraVENous, Once PRN, nausea, Starting on Wed10/20/24 at 1315, For 1 dose, Recovery (only), Initial antiemetic therapy. Start: 06-20-2019 End: 06-26-2019 take 1 tablet by mouth every eight hours as needed for nausea Ondansetron 4 MG tablet Discontinued 4 mg PO EVERY 8 HOURS NEEDED as needed for Nausea June 20, 2019 12:00am June 26, 2019 2:15pm oxyCODONE (2 sources) Opioid Agonist Start: 10-20-2024 End: 10-20-2024 take 1 tablet by mouth every four hours as needed for pain oxyCODONE (Roxicodone) immediate release tablet 5 mg polyethylene glycol 3350 42231 mg powder for oral solution (2 sources) Osmotic Laxative Start: 09-02-2021 End: 01-08-2022 polyethylene glycol 3350 (MIRALAX, GLYCOLAX) 17 gram/dose powder Use as directed for Miralax / Gatorade Bowel Prep Kit 238 g 09/02/2021 01/08/2022 Discontinued predniSONE 20 mg oral tablet (4 sources) Start: 12-01-2023 End: 12-06-2023 take 1 tablet by mouth once daily at mealtime predniSONE (DELTASONE) 20 mg tablet Indications: Acute pain of left shoulder Take 1 tablet by mouth once daily for 5 days. Take daily with food. 5 tablet 12/01/2023 12/06/2023 Start: 09-08-2022 End: 09-17-2022 predniSONE (DELTASONE) 10 mg tablet Indications: Bronchitis , Sinobronchitis Take 4 tabs daily for 3 days, then 2 tabs daily for 3 days, then 1 tab daily for 3 days with food. 21 tablet 0 09/08/2022 09/17/2022 Active Start: 08-11-2022 End: 08-20-2022 predniSONE (DELTASONE) 10 mg tablet Indications: Foot pain, left Take 4 tabs daily for 3 days, then 2 tabs daily for 3 days, then 1 tab daily for 3 days with food. 21 tablet 0 08/11/2022 08/20/2022 Active Start: 01-08-2022 End: 01-20-2022 predniSONE (DELTASONE) 10 mg tablet Indications: Cough Take 4 tabs daily x 3 days, then 3 tabs x 3 days, 2 tabs x 3 days, then 1 tab x3 days with food. 30 tablet 01/08/2022 01/20/2022 Comment on above: Take 4 tabs daily fo r 3 days, then 2 tabs daily for 3 days, then 1 tab daily for 3 days with food. 50 ml sodium chloride 9 mg/ml injection (14 sources) Start: 10-20-2024 End: 10-20-2024 500 mL, IntraVENous, at 1,000 mL/hr, Administer over 0.5 Hours, PRN, Anti-nausea, Starting on Wed10/20/24 at 1216, Recovery (only), Indications: Anti-nausea Start: 10-20-2024 End: 10-20-2024 10 mL, IntraVENous, Every 12 hours scheduled (2 times per day), First dose on Wed10/20/24 at 0915, Preprocedure Start: 10-20-2024 End: 10-20-2024 take 100 mL intravenously every hour as needed, then take 20 mL intravenously every hour as needed 5-250 mL/hr, IntraVENous, PRN, if patient receiving piggyback infusions and maintenance fluids are not ordered OR KVO fluids to protect IV site / prevent frequent line interruptions/ long duration, Starting on Wed10/20/24 at 0908, Preprocedure, For piggyback infusion, administer at same rate as piggyback for a total of 25 mL. Enter 25 mL into dose field and piggyback rate into rate field of order. If piggyback is infusing at a rate less than 100 mL/hr, enter 25 mL into dose field and 100 mL/hr into rate field of order. For KVO fluids, enter rate of 20 mL/hr or less into rate field of order. Start: 10-20-2024 End: 10-20-2024 take 10 mL intravenously once as needed 10 mL, IntraVENous, PRN, line care, Starting on Wed10/20/24 at 0908, Preprocedure, After every IV line use Start: 10-20-2024 End: 10-20-2024 take 5-40 mL intravenously every twelve hours 5-40 mL, IntraVENous, Every 12 hours, First dose on Wed10/20/24 at 0915, Preprocedure, For Line Patency: Peripheral IV = 5 mL; Midline or Central Line = 10 mL/lumen. If following IV push medication, administer flush at same rate as the IV push. Flush volume is determined by type of infusion therapy being given. For non-viscous solutions use: Peripheral IV = 5 mL Midline or Central Line = 10 mL/lumen For viscous solutions (i.e. blood components, parenteral nutrition, contrast media, or after obtaining blood sample) use: Peripheral IV = 10 mL Midline or Central Line = 20 mL/lumen Problems Active Problems Problem Classification Problem Date Documented Date Episodic/Chronic Acquired foot deformities (1 source) Tailor's bunion of left foot; Translations: [Bunionette of left foot] 02-12-2025 Episodic Anxiety disorders (20 sources) Mixed anxiety and depressive disorder; Translations: [Anxiety disorder, unspecified] Onset: 08-09-2023 Chronic Bacterial infection; unspecified site (2 sources) Methicillin resistant Staphylococcus aureus infection; Translations: [Methicillin resistant Staphylococcus aureus infection, unspecified site] 12-06-2019 Episodic Biliary tract disease (2 sources) Acute cholecystitis; Translations: [Acute cholecystitis] 12-06-2019 Episodic Cardiac dysrhythmias (20 sources) Paroxysmal atrial fibrillation; Translations: [Paroxysmal atrial fibrillation] Onset: 04-02-2021 04-02-2021 Chronic Chronic obstructive pulmonary disease and bronchiectasis (3 sources) Bronchitis; Translations: [Bronchitis, not specified as acute or chronic] Episodic Conditions associated with dizziness or vertigo (1 source) Dizziness and giddiness; Translations: [Dizziness and giddiness] 04-30-2025 Episodic Disorders of lipid metabolism (20 sources) Mixed hyperlipidemia; Translations: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 deviationOrdered By: Lee Jaeger on 04-30-2025 Erythrocyte distribution width (RBC) [Ratio] 46.1 fl High 35.1-43.9 [facility] Glomerular filtration rate ( GFR) estimation/1.73 sq m using serum, plasma, or whole bOrdered By: Lee Jaeger on 04-30-2025 GFR/1.73 sq M.predicted among non-blacks MDRD (S/P/Bld) [Vol rate/Area] 70 mL/min/{1.73_m2} Normal >60 [facility] Comment on above: mL/min/1.73m2 CKD-EP I Creatinine Equation (2020) Result Comment: mL/m in/1.73m2 CKD-EPI Creatinine Equation (2020) Performed By: #### L 501.5200, L500.4050, L100.0100 #### [facility] [address] [place], [address] Hemoglobin measurementOrdere d By: Lee Jaeger on 04-30-2025 Hemoglobin (Bld) [Mass/Vol] 16.1 g/dL Normal 13.0-16.5 [facility] Comment on above: Performed By: #### L 501.5200, L500.4050, L100.0100 #### [facility] [address] [place], [address] Immature granulocytes/100 WB C Auto (Bld)Ordered By: Lee Jaeger on 04-30-2025 Immature granulocytes/100 WBC (Bld) 0.400 % 0.0-0.9 [facility] Comment on above: IG% - Immature Granu locytes (promyelocytes, myelocytes and metamyelocytes) > 1% indicates that a LEFT SHIFT is Present. MCV (mean corpuscular volume ) determinationOrdered By: Lee Jaeger on 04-30-2025 MCV (RBC) [Entitic vol] 91.9 fL Normal 80-94 [facility] Comment on above: Performed By: #### L 501.5200, L500.4050, L100.0100 #### [facility] [address] [place], [address] Magnesiumon 04-30-2025 Magnesium [Mass/Vol] 2.0 mg/dL Normal 1.5-2.2 [facility] Comment on above: Performed By: #### L 501.5200, L500.4050, L100.0100 #### [facility] [address] [place], [address] Magnesium measurement (mass/ volume)Ordered By: Lee Jaeger on 04-30-2025 Magnesium (Unsp spec) [Mass/Vol] 2.0 mg/dL 1.5-2.2 [facility] Mean corpuscular hemoglobin (MCH) determinationOrdered By: Lee Jaeger on 04-30-2025 MCH (RBC) [Entitic mass] 31.1 pg Normal 27.0-32.0 [facility] Comment on above: Performed By: #### L 501.5200, L500.4050, L100.0100 #### [facility] [address] [place], [address] Mean corpuscular hemoglobin concentration (MCHC) determinationOrdered By: Lee Jaeger on 04-30-2025 MCHC (RBC) [Mass/Vol] 33.8 g/dL Normal 32-[address] [facility] Comment on above: Performed By: #### L 501.5200, L500.4050, L100.0100 #### [facility] [address] [place], [address] Mean platelet volume determi nationOrdered By: Lee Jaeger on 04-30-2025 Platelet mean volume (Bld) [Entitic vol] 10.2 fL Normal 6.2-12.0 [facility] Comment on above: Performed By: #### L 501.5200, L500.4050, L100.0100 #### [facility] [address] [place], [address] Monocyte percentageOrdered B y: Lee Jaeger on 04-30-2025 Monocytes/100 WBC (Bld) 4.4 % Normal 0-10 [facility] Comment on above: Performed By: #### L 501.5200, L500.4050, L100.0100 #### [facility] [address] [place], [address] Neutrophil percentageOrdered By: Lee Jaeger on 04-30-2025 Neutrophils/100 WBC (Bld) 56.1 % Normal 47-70 [facility] Comment on above: Performed By: #### L 501.5200, L500.4050, L100.0100 #### [facility] [address] [place], [address] Nucleated red blood cell per centageOrdered By: Lee Jaeger on 04-30-2025 Nucleated RBC/100 WBC (Bld) [Ratio] 0 % 0-5 [facility] Platelet countOrdered By: Yung Jaeger on 04-30-2025 Platelets (Bld) [#/Vol] 223 10*3/uL Normal 150-450 [facility] Comment on above: Performed By: #### L 501.5200, L500.4050, L100.0100 #### [facility] [address] [place], [address] Potassium measurement (mass/ volume)Ordered By: Lee Jaeger on 04-30-2025 Potassium (Unsp spec) [Mass/Vol] 4.6 mmol/L 3.3-5.1 [facility] Comment on above: Hemolysis present, R esults could be affected. Serum creatinine measurement (mass/volume)Ordered By: Lee Jaeger on 04-30-2025 Creatinine [Mass/Vol] 1.17 mg/dL Normal 0.70-1.[address] [facility] Comment on above: Performed By: #### L 501.5200, L500.4050, L100.0100 #### [facility] [address] [place], [address] Serum globulin measurementOr dered By: Lee Jaeger on 04-30-2025 Globulin (S) [Mass/Vol] 2.7 g/dL Normal 2.2-4.2 [facility] Comment on above: Performed By: #### L 501.5200, L500.4050, L100.0100 #### [facility] [address] [place], [address] Serum glucose measurement (m ass/volume)Ordered By: Lee Jaeger on 04-30-2025 Glucose [Mass/Vol] 121 mg/dL High 70-99 [facility] Comment on above: Performed By: #### L 501.5200, L500.4050, L100.0100 #### [facility] [address] [place], [address] Serum or plasma alanine valdes otransferase (ALT) measurementOrdered By: Lee Jaeger on 04-30-2025 ALT [Catalytic activity/Vol] 24 U/L Normal <=46 [facility] Comment on above: Performed By: #### L 501.5200, L500.4050, L100.0100 #### [facility] [address] [place], [address] Serum or plasma albumin charles urement (mass/volume)Ordered By: Lee Jaeger on 04-30-2025 Albumin [Mass/Vol] 3.8 g/dL Normal 3.4-4.8 [facility] Comment on above: Performed By: #### L 501.5200, L500.4050, L100.0100 #### [facility] [address] [place], [address] Serum or plasma albumin/glob ulin mass ratioOrdered By: Lee Jaeger on 04-30-2025 Albumin/Globulin [Mass ratio] 1.4 {ratio} Normal 0.9-2.4 [facility] Comment on above: Performed By: #### L 501.5200, L500.4050, L100.0100 #### [facility] [address] [place], [address] Serum or plasma alkaline michael sphatase measurementOrdered By: Lee Jaeger on 04-30-2025 ALP [Catalytic activity/Vol] 75 U/L 40-129 [facility] Serum or plasma calcium charles urement (mass/volume)Ordered By: Lee Jaeger on 04-30-2025 Calcium [Mass/Vol] 9.2 mg/dL Normal 7.6-11.0 [facility] Comment on above: Performed By: #### L 501.5200, L500.4050, L100.0100 #### [facility] [address] [place], [address] Serum or plasma urea nitroge n measurement (mass/volume)Ordered By: Lee Jaeger on 04-30-2025 Urea nitrogen [Mass/Vol] 23 mg/dL High 4-19 [facility] Comment on above: Performed By: #### L 501.5200, L500.4050, L100.0100 #### [facility] [address] [place], [address] Sodium levelOrdered By: Lee Jaeger on 04-30-2025 Sodium [Moles/Vol] 136 mmol/L Normal 133-145 [facility] Comment on above: Performed By: #### L 501.5200, L500.4050, L100.0100 #### [facility] [address] [place], [address] Total proteinOrdered By: Sherlyn Jaeger on 04-30-2025 Protein [Mass/Vol] 6.5 g/dL 5.9-8.4 [facility] White blood cell (WBC) count Ordered By: Lee Jaeger on 04-30-2025 WBC (Bld) [#/Vol] 7.7 10*3/uL Normal 4.4-11.0 [facility] Comment on above: Performed By: #### L 501.5200, L500.4050, L100.0100 #### [facility] [address] [place], [address] CBC W Auto Differential pane l (Bld)on 04-23-2025 Basophils (Bld) [#/Vol] 0.07 10*3/uL Normal <0.11 [facility] Comment on above: Order Comment: Speci men Type: BLOOD SPECIMENOrdering Facility: [facility] Address: [address] [place] [address] Performed By: #### 5 7021-8 ####[facility] LABIA [id number] [place] [address] [place] Basophils/100 WBC (Bld) 1.4 % Normal [facility] Comment on above: Order Comment: Speci men Type: BLOOD SPECIMENOrdering Facility: [facility] Address: [address] [place] [address] Performed By: #### 5 7021-8 ####[facility] LABCLIA [id number] [place] [id number] [place] Differential cell count method Nom (Bld) Auto Normal [facility] Comment on above: Order Comment: Speci men Type: BLOOD SPECIMENOrdering Facility: [facility] Address: [address] [place] [address] Performed By: #### 5 7021-8 ####[facility] LABCLIA [id number] [address] [place] [address] [place] Eosinophils (Bld) [#/Vol] 0.14 10*3/uL Normal <0.46 [facility] Comment on above: Order Comment: Speci men Type: BLOOD SPECIMENOrdering Facility: [facility] Address: [address] [place] [address] Performed By: #### 5 7021-8 ####[facility] LABCLIA [id number] [facility] [address], [place] [address] [place] Eosinophils/100 WBC (Bld) 2.9 % Normal [facility] Comment on above: Order Comment: Speci men Type: BLOOD SPECIMENOrdering Facility: [facility] Address: [address] [place] [address] Performed By: #### 5 7021-8 ####[facility] LABCLIA [id number] [address], [place] [address] [place] Erythrocyte distribution width (RBC) [Ratio] 13.4 % Normal 11.5-15.0 [facility] Comment on above: Order Comment: Speci men Type: BLOOD SPECIMENOrdering Facility: [facility] Address: [address] [place] [address] Performed By: #### 5 7021-8 ####[facility] LABCLIA [id number] [address], [place] [address] [place] Hematocrit (Bld) [Volume fraction] 43.3 % Normal 39.0-51.0 [facility] Comment on above: Order Comment: Speci men Type: BLOOD SPECIMENOrdering Facility: [facility] Address: [address] [place] [address] Performed By: #### 5 7021-8 ####[facility] LABCLIA [id number] [address], [facility] [place] [place] Hemoglobin (Bld) [Mass/Vol] 14.4 g/dL Normal 13.0-17.0 [facility] Comment on above: Order Comment: Speci men Type: BLOOD SPECIMENOrdering Facility: [facility] Address: [address] [place] [address] Performed By: #### 5 7021-8 ####[facility] LABCLIA [id number] [place] [id number] [place] Immature granulocytes (Bld) [#/Vol] 10*3/uL Normal <0.10 [facility] Comment on above: Order Comment: Speci men Type: BLOOD SPECIMENOrdering Facility: [facility] Address: [address] [place] [address] Performed By: #### 5 7021-8 ####[facility] LABCLIA [id number] [place] [address] [place] Immature granulocytes/100 WBC (Bld) 0.4 % Normal [facility] Comment on above: Order Comment: Speci men Type: BLOOD SPECIMENOrdering Facility: [facility] Address: [address] [place] [address] Performed By: #### 5 7021-8 ####[facility] LABCLIA [id number] [place] [address] [place] Lymphocytes (Bld) [#/Vol] 2.73 10*3/uL Normal 1.00-4.00 [facility] Comment on above: Order Comment: Speci men Type: BLOOD SPECIMENOrdering Facility: [facility] Address: [address] [place] [address] Performed By: #### 5 7021-8 ####[facility] LABCLIA [id number] [place] [address] [place] Lymphocytes/100 WBC (Bld) 56.2 % Normal [facility] Comment on above: Order Comment: Speci men Type: BLOOD SPECIMENOrdering Facility: [facility] Address: [address] [place] [address] Performed By: #### 5 7021-8 ####[facility] LABIA [id number] [place] [address] [place] MCH (RBC) [Entitic mass] 30.6 pg Normal 26.0-34.0 [facility] Comment on above: Order Comment: Speci men Type: BLOOD SPECIMENOrdering Facility: [facility] Address: [address] [place] [address] Performed By: #### 5 7021-8 ####[facility] LABIA [id number] [place] [address] [place] MCHC (RBC) [Mass/Vol] 33.3 g/dL Normal 30.5-36.0 [facility] Comment on above: Order Comment: Speci men Type: BLOOD SPECIMENOrdering Facility: [facility] Address: [address] [place] [address] Performed By: #### 5 7021-8 ####[facility] [id number] [place] [address] [place] MCV (RBC) [Entitic vol] 92.1 fL Normal 80.0-100.0 [facility] Comment on above: Order Comment: Speci men Type: BLOOD SPECIMENOrdering Facility: [facility] Address: [address] [place] [address] Performed By: #### 5 7021-8 ####[facility] [id number] [place] [address] [place] Monocytes (Bld) [#/Vol] 0.21 10*3/uL Normal <0.87 [facility] Comment on above: Order Comment: Speci men Type: BLOOD SPECIMENOrdering Facility: [facility] Address: [address] [place] [address] Performed By: #### 5 7021-8 ####[facility] [id number] [address] [place] Monocytes/100 WBC (Bld) 4.3 % Normal [facility] Comment on above: Order Comment: Speci men Type: BLOOD SPECIMENOrdering Facility: [facility] Address: [address] [place] [address] Performed By: #### 5 7021-8 ####[facility] LABCLIA [id number] [facility] [address] [address] [place] Neutrophils (Bld) [#/Vol] 1.69 10*3/uL Normal 1.45-7.50 [facility] Comment on above: Order Comment: Speci men Type: BLOOD SPECIMENOrdering Facility: [facility] Address: [address] [place] [address] Performed By: #### 5 7021-8 ####[facility] LABCLIA [id number] [place] [address] [place] Neutrophils/100 WBC (Bld) 34.8 % Normal [facility] Comment on above: Order Comment: Speci men Type: BLOOD SPECIMENOrdering Facility: [facility] Address: [address] [place] [address] Performed By: #### 5 7021-8 ####[facility] LABCLIA [id number] [place] [address] [place] Nucleated RBC (Bld) [#/Vol] 10*3/uL Normal <0.01 [facility] Comment on above: Order Comment: Speci men Type: BLOOD SPECIMENOrdering Facility: [facility] Address: [address] [place] [address] Performed By: #### 5 7021-8 ####[facility] LABCLIA [id number] [place] [id number] [place] Nucleated RBC/100 WBC (Bld) [Ratio] 0.0 /100 WBC Normal [facility] Comment on above: Order Comment: Speci men Type: BLOOD SPECIMENOrdering Facility: [facility] Address: [address] [place] [address] Performed By: #### 5 7021-8 ####[facility] LABCLIA [id number] [facility] [address] [place] Platelet mean volume (Bld) [Entitic vol] 11.2 fL Normal 9.0-12.7 [facility] Comment on above: Order Comment: Speci men Type: BLOOD SPECIMENOrdering Facility: [facility] Address: [address] [place] [address] Performed By: #### 5 7021-8 ####[facility] LABCLIA [id number] [place] [address] [place] Platelets (Bld) [#/Vol] 208 10*3/uL Normal 150-400 [facility] Comment on above: Order Comment: Speci men Type: BLOOD SPECIMENOrdering Facility: [facility] Address: [address] [place] [address] Performed By: #### 5 7021-8 ####[facility] LABCLIA [id number] [place] [address] [place] RBC (Bld) [#/Vol] 4.70 10*6/uL Normal 4.20-6.00 [facility] Comment on above: Order Comment: Speci men Type: BLOOD SPECIMENOrdering Facility: [facility] Address: [address] [place] [address] Performed By: #### 5 7021-8 ####[facility] LABCLIA [id number] [facility] [place] [id number] [place] WBC (Bld) [#/Vol] 4.86 10*3/uL Normal 3.70-11.00 [facility] Comment on above: Order Comment: Speci men Type: BLOOD SPECIMENOrdering Facility: [facility] Address: [address] [place] [address] Performed By: #### 5 7021-8 ####[facility] LABCLIA [id number] [address] [address] [facility] CNOVon 04-23-2025 CNOV Office Visit (FAMPWS ) RICHSAULO CandelariaROBERTO M ([id number]) 1960 M Date Time Provider Department 04/23/25 8:00 AM YENNIFER WORRELL During your visit today, we recorded the following information about you: Pulse Respiration Blood pressure 49/minute 16/minute 118/82 Yennifer Worrell APRN.NETWORK DESIGN ARCHITECT 04/23/2025 8:31 AM Signed - Continue your current dose of sertraline for anxiety; no changes were made today. - Stop by the lab for the ordered blood tests as soon as possible (you?re already fasting 10-12 hours; you may have water or black coffee). - Arrange your next colonoscopy (due every 3 years) with the same doctor in [place]--call their office to schedule. - We will complete and hold your paperwork until your lab results return; we?ll call you when the forms are ready for pickup. Health Promotion: - Eat healthy -- go to [employer] to get started - Have a yearly physical - Get at least 30 minutes of physical activity daily - Get at least 7 to 8 hours of sleep each night - Reach and maintain a healthy weight - Get help to quit or don't start smoking - Limit alcohol use to one drink or less - Do not use illegal drugs or misuse prescription drugs - Wear a helmet when riding a bike and wear protective gear for sports - Wear a seatbelt in cars and not text and drive - Wear sunscreen Yennifer Worrell APRN.NETWORK DESIGN ARCHITECT 04/23/2025 8:41 AM Signed This is a 64 year old male who presents today with: Roberto Jolene De La Cruz is a 64-year-old male with a history of anxiety, presenting for an annual wellness visit. HISTORY OF PRESENT ILLNESS: Annual Wellness Exam: Has form for work. - Last colonoscopy in 2020; Roberto plans to schedule another with the same provider in [place]. Headaches: - Occasional headaches attributed to allergies. - No medication use for allergies. - No other headaches reported. Anxiety/depression: - Managed with sertraline; no changes desired. - Anxiety exacerbated by family losses, including the of a brother three years ago and a sister. - Recent stress due to [id number]-[id number]'s stage 3 throat cancer diagnosis. - Family history of Alzheimer's disease in mother and sister, cancer in father, and COPD in brother. Stable on current sertraline dose. PAST MEDICAL HISTORY: PAST MEDICAL HISTORY Diagnosis Date A-fib (HCC) 04/2020 PAST SURGICAL HISTORY Procedure Laterality Date COLONOSCOPY FLX DX W/COLLJ SPEC WHEN PFRMD 11/27/2016 Colonoscopy LAPAROSCOPIC CHOLECYSTECTOMY 06/20/2019 Dr. Gagan Richardson PAST SURGICAL HISTORY OF finger surgery x 2 TONSILLECTOMY PRIMARY/SECONDARY Tonsillectomy and adnoids VENOUS EXTREMITY UNILATERAL 10/08/2021 US neg DVT left lower leg ALLERGIES Iodinated Contrast Media MEDICATIONS Current Outpatient Medications Medication Sig sertraline (ZOLOFT) 50 mg tablet Take 1 tablet by mouth once daily. No current facility-administered medications for this visit. FAMILY HISTORY Problem Relation Age of Onset Alzheimer's Disease Mother Cancer Father brain tumor ,lung removed and kidney removed COPD Brother Osteoporosis Paternal Grandfather Alzheimer's Disease Sister Social History Tobacco Use Smoking status: Never Smokeless tobacco: Never Vaping Use Vaping status: Never Used Substance Use Topics Alcohol use: Yes Comment: occasional Drug use: No REVIEW OF SYSTEMS Constitutional: (-) unintentional weight loss, (-) weakness, (-) fatigue Head: (+) headaches -- related to allergies. Eyes: (-) vision change Ears/Nose/Mouth/Throat: (-) dysphagia, (-) hearing loss Neck: (-) neck masses Cardiovascular: (-) chest pain, (-) palpitations, (-) peripheral edema Respiratory: (-) dyspnea, (-) cough, (-) wheezing Gastrointestinal: (-) abdominal pain, (-) heartburn, (-) diarrhea, (-) constipation, (-) hematochezia, (-) melena Genitourinary: (-) dysuria Skin: (-) rash, (-) pruritus, (-) changing moles Neurological: (-) syncope, (-) seizures, (-) tremors Endocrine: (-) heat intolerance, (-) cold intolerance, (-) polydipsia, (-) polyuria Hematologic/Lymphatic: (-) abnormal bleeding, (-) easy bruising EXAM: BP 118/82 Pulse (!) 49 Resp 16 SpO2 95% PHYSICAL EXAM: General Appearance: Well appearing, alert, in no acute distress, well-hydrated, well nourished.. Skin: Skin color, texture, turgor normal, no suspicious rashes or lesions. Head: Normocephalic, no masses, lesions, tenderness or abnormalities. Eyes: Anicteric sclera. Pupils are equally round and reactive to light. Extraocular movements are intact. . Ears: External ears normal, canals clear. Normal TMs bilaterally. Oropharynx: Lips, mucosa, and tongue normal, teeth and gums normal, oropharynx normal. Neck: Supple, no adenopathy; thyroid symmetric, normal size, no bruits. Lungs: Lungs clear to auscultation. No wheezing, rhonchi, rales (more content not included)... Normal [facility] Comprehensive metabolic 2000 panelon 04-23-2025 Albumin [Mass/Vol] 3.9 g/dL Normal 3.9-4.9 [facility] Comment on above: Order Comment: Speci men Type: BLOOD SPECIMENOrdering Facility: [facility] Address: [address] [place] [address] Performed By: #### 2 4331-1, ####[facility] LABCLIA [id number] [place] [address] [place] ALP [Catalytic activity/Vol] 76 U/L Normal 38-113 [facility] Comment on above: Order Comment: Speci men Type: BLOOD SPECIMENOrdering Facility: [facility] Address: [address] [place] [address] Performed By: #### 2 4331-1, ####[facility] LABCLIA [id number] [place] [address] [place] ALT [Catalytic activity/Vol] 20 U/L Normal 10-54 [facility] Comment on above: Order Comment: Speci men Type: BLOOD SPECIMENOrdering Facility: [facility] Address: [address] [id number] Performed By: #### 2 4331-1, ####[facility] LABCLIA [id number] [facility] [address] [place] [address] [place] Anion gap [Moles/Vol] 9 mmol/L Normal 8-15 [facility] [place] Comment on above: Order Comment: Speci men Type: BLOOD SPECIMENOrdering Facility: [facility] Address: [address] [place], [place] [id number] Performed By: #### 2 4331-1, ####[facility] LABCLIA [id number] [address] [address] [place] AST [Catalytic activity/Vol] 21 U/L Normal 14-40 [facility] Comment on above: Order Comment: Speci men Type: BLOOD SPECIMENOrdering Facility: [facility] Address: [address] [place], [place] [address] Performed By: #### 2 4331-1, ####[facility] LABCLIA [id number] [address] [address] [place] Bilirubin [Mass/Vol] 0.4 mg/dL Normal 0.2-1.3 [facility] Comment on above: Order Comment: Speci men Type: BLOOD SPECIMENOrdering Facility: [facility] Address: [address] [place] [address] Performed By: #### 2 4331-1, 28075-2 ####[facility] LABCLIA [id number] [address] [address] [place] Calcium [Mass/Vol] 8.8 mg/dL Normal 8.5-10.2 [facility] Comment on above: Order Comment: Speci men Type: BLOOD SPECIMENOrdering Facility: [facility] Address: [address] [place] [address] Performed By: #### 2 4331-1, 98297-5 ####[facility] LABCLIA [id number] [address] [address] [place] Chloride [Moles/Vol] 104 mmol/L Normal 98-107 [facility] Comment on above: Order Comment: Speci men Type: BLOOD SPECIMENOrdering Facility: [facility] Address: [address] [place] [address] Performed By: #### 2 4331-1, 74149-4 ####[facility] LABCLIA [id number] [place] [id number] [place] CO2 [Moles/Vol] 26 mmol/L Normal 22-30 [facility] Comment on above: Order Comment: Speci men Type: BLOOD SPECIMENOrdering Facility: [facility] Address: [address] [place] [address] Performed By: #### 2 4331-1, 10792-6 ####[facility] LABIA [id number] [place] [id number] [place] Creatinine [Mass/Vol] 0.93 mg/dL Normal 0.73-1.22 [facility] Comment on above: Order Comment: Speci men Type: BLOOD SPECIMENOrdering Facility: [facility] Address: [address] [place], [place] [address] Performed By: #### 2 4331-1, 52499-2 ####[facility] LABCLIA [id number] [address] [address] [place] Creatinine and Glomerular filtration rate.predicted panel (S/P/Bld) 93 mL/min/1.73m??? Normal >=60 [facility] Comment on above: Order Comment: Speci men Type: BLOOD SPECIMENOrdering Facility: [facility] Address: [address] [place], [place] [id number] Result Comment: Cierra mated Glomerular Filtration Rate (eGFR) is calculated using the 2020 CKD-EPI creatinine equation. This equation utilizes serum creatinine, sex, and age as parameters. The creatinine assay has traceable calibration to isotope dilution-mass spectrometry. Refer to KDIGO guidelines for clinical interpretation. In patients with unstable renal function, e.g. those with acute kidney injury, the eGFR may not accurately reflect actual GFR. Performed By: #### 2 4331-, 20023-1 ####[facility] LABCLIA [id number] [address] [address] [place] Glucose [Mass/Vol] 100 mg/dL High 74-99 [facility] Comment on above: Order Comment: Speci men Type: BLOOD SPECIMENOrdering Facility: [facility] Address: [address] [place] [address] Result Comment: The [place] Diabetes Association (ADA) provides guidance for cutoff values for fasting glucose and random glucose. The ADA defines fasting as no caloric intake for at least 8 hours. Fasting plasma glucose results between 100 to 125 mg/dL indicate increased risk for diabetes (prediabetes). Fasting plasma glucose results greater than or equal to 126 mg/dL meet the criteria for diagnosis of diabetes. In the absence of unequivocal hyperglycemia, results should be confirmed by repeat testing. In a patient with classic symptoms of hyperglycemia or hyperglycemic crisis, random plasma glucose results greater than or equal to 200 mg/dL meet the criteria for diagnosis of diabetes. Reference: Standards of Medical Care in Diabetes 2016, [place] Diabetes Association. Diabetes Care. 2016.39(Suppl 1). Performed By: #### 2 4331-, 60569-0 ####[facility] LABIA [id number] [address] [address] [place] Potassium [Moles/Vol] 3.8 mmol/L Normal 3.7-5.1 [facility] Comment on above: Order Comment: Speci men Type: BLOOD SPECIMENOrdering Facility: [facility] Address: [address] [phone] Performed By: #### 2 4331-, 57620-1 ####[facility] LABIA [id number] [address] [address] [place] Protein [Mass/Vol] 6.3 g/dL Normal 6.3-8.0 [facility] Comment on above: Order Comment: Speci men Type: BLOOD SPECIMENOrdering Facility: [facility] Address: [address] [place] [address] Performed By: #### 2 4331-1, 63789-9 ####[facility] LABCLIA [id number] [place] [id number] [place] Sodium [Moles/Vol] 139 mmol/L Normal 136-144 [facility] Comment on above: Order Comment: Speci men Type: BLOOD SPECIMENOrdering Facility: [facility] Address: [address] [place] [address] Performed By: #### 2 4331-1, 03448-8 ####[facility] LABCLIA [id number] [place] [address] [place] Urea nitrogen [Mass/Vol] 18 mg/dL Normal 9-24 [facility] Comment on above: Order Comment: Speci men Type: BLOOD SPECIMENOrdering Facility: [facility] Address: [address] [place] [address] Performed By: #### 2 4331-1, 18310-2 ####[facility] LABCLIA [id number] [address], [facility] [place] [place] Lipid 1996 panelon 5 Cholesterol [Mass/Vol] 175 mg/dL Normal <200 [facility] Comment on above: Order Comment: Speci men Type: BLOOD SPECIMENOrdering Facility: [facility] Address: [address] [place] [address] Result Comment: <200 mg/dL, Desirable 200-239 mg/dL, Borderline high >239 mg/dL, High Performed By: #### 2 4331-1, 38419-9 ####[facility] LABCLIA [id number] [place] [id number] [place] Cholesterol in HDL [Mass/Vol] 40 mg/dL Normal >39 [facility] Comment on above: Order Comment: Speci berkley Type: BLOOD SPECIMENOrdering Facility: [facility] Address: [address] [place] [address] Result Comment: 40-5 9 mg/dL, Acceptable >59 mg/dL, High: Negative risk factor for coronary heart disease <40 mg/dL, Low: Positive risk factor for coronary heart disease Performed By: #### 2 4331-1, ####[facility] LABCLIA [id number] [address] [place] Cholesterol in LDL [Mass/Vol] 101 mg/dL High <100 [facility] Comment on above: Order Comment: Braxton berkley Type: BLOOD SPECIMENOrdering Facility: [facility] Address: [address] [place] [address] Result Comment: <100 mg/dL, Optimal 100-129 mg/dL, Near optimal/above optimal 130-159 mg/dL, Borderline high 160-189 mg/dL, High >189 mg/dL, Very high Secondary prevention optimal LDL Cholesterol levels are recommended to be <70 mg/dL LDL cholesterol is calculated using the Rodriguez-NIH equation. Performed By: #### 2 4331-1, ####[facility] LABIA [id number] [address] [place] Cholesterol in LDL/Cholesterol in HDL [Mass ratio] 2.53 {ratio} Normal <2.54 [facility] Comment on above: Order Comment: Braxton gooden Type: BLOOD SPECIMENOrdering Facility: [facility] Address: [address] [place] [address] Result Comment: Chapo joy: 1. National Cholesterol Education Program ATP III Guideline At-A-Glance Quick Desk Reference: National Heart, Lung, and Blood Chandler. National Institutes of Health. 2001: NIH Publication No. 01-3305. 2. An International Atherosclerosis Society position paper: global recommendations for the management of dyslipidemia: executive summary, Atherosclerosis. 2014: 232(2):410-413. Performed By: #### 2 4331-1, ####[facility] LABCLIA [id number] [facility] [address] [place] [address] [place] Cholesterol in VLDL [Mass/Vol] 33 mg/dL High <30 [facility] Comment on above: Order Comment: Speci men Type: BLOOD SPECIMENOrdering Facility: [facility] Address: [address] [place] [address] Performed By: #### 2 4331-1, ####[facility] LABCLIA [id number] [facility] [address] [place] [address] [place] Cholesterol non HDL [Mass/Vol] 135 mg/dL High <130 [facility] Comment on above: Order Comment: Speci men Type: BLOOD SPECIMENOrdering Facility: [facility] Address: [address] [place] [address] Result Comment: <130 mg/dL, Optimal 130-159 mg/dL, Near optimal/above optimal 160-189 mg/dL, Borderline high 190-219 mg/dL, High >219 mg/dL, Very high Secondary prevention optimal non HDL Cholesterol levels are recommended to be <100 mg/dL Performed By: #### 2 4331-1, ####[facility] LABCLIA [id number] [address] [place] [address] [place] Cholesterol.total/Nilsa sterol in HDL [Mass ratio] 4.38 {ratio} Normal <5.10 [facility] Comment on above: Order Comment: Speci men Type: BLOOD SPECIMENOrdering Facility: [facility] Address: [address] [id number] Performed By: #### 2 4331-1, ####[facility] LABCLIA [id number] [address] [address] [place] FASTING TIME 11 hrs Normal [facility] Comment on above: Order Comment: Speci men Type: BLOOD SPECIMENOrdering Facility: [facility] Address: [address] [place] [address] Performed By: #### 2 4331-1, 79597-9 ####[facility] LABCLIA [id number] [place] [address] [place] Triglyceride [Mass/Vol] 198 mg/dL High <150 [facility] Comment on above: Order Comment: Speci men Type: BLOOD SPECIMENOrdering Facility: [facility] Address: [address] [place] [address] Result Comment: <150 mg/dL, Normal 150-199 mg/dL, Borderline high 200-499 mg/dL, High >499 mg/dL, Very high Performed By: #### 2 4331-1, 46847-1 ####[facility] LABCLIA [id number] [address] [place] [facility] 02-19-20[facility] ROBERTO DE LA CRUZ ([id number]) 1960 M Date Time Provider Department 02/19/25 10:00 AM HANH SHARMA FAMWS During your visit today, we recorded the following information about you: Temperature Pulse Blood pressure Weight 97 degrees 59/minute 122/74 119.3 kg Hanh Sharma, MANAGER DRUG SAFETY.NETWORK DESIGN ARCHITECT 02/19/2025 10:04 AM Signed This is a 64 year old male who presents today with: Patient presents with: Acute Visit: Cough, congestion, ear pressure for about a week HISTORY OF PRESENT ILLNESS: Roberto Jolnee Jono is a 64 year old male. Patient presents with: Acute Visit: Cough, congestion, ear pressure for about a week Head congestion, chest congestion for about a week. And - runny nose. Wednesday- coughing. Laying around. No energy. No appetite. Some chills. Was sick a month ago and now back. Nyquil, sinus congestion pills, nothing helps. Can't lay down d/t cough. PAST MEDICAL HISTORY: PAST MEDICAL HISTORY Diagnosis Date A-fib (HCC) 04/2020 PAST SURGICAL HISTORY Procedure Laterality Date COLONOSCOPY FLX DX W/COLLJ SPEC WHEN PFRMD 11/27/2016 Colonoscopy LAPAROSCOPIC CHOLECYSTECTOMY 06/20/2019 Dr. Gagan Richardson PAST SURGICAL HISTORY OF finger surgery x 2 TONSILLECTOMY PRIMARY/SECONDARY Tonsillectomy and adnoids VENOUS EXTREMITY UNILATERAL 10/08/2021 US neg DVT left lower leg ALLERGIES Iodinated Contrast Media MEDICATIONS Current Outpatient Medications Medication Sig Promethazine-DM (PHENERGAN-DM) 6.25-15 mg/5 mL syrup Take 5 mL by mouth four times a day as needed. sertraline (ZOLOFT) 50 mg tablet Take 1 tablet by mouth once daily. No current facility-administered medications for this visit. FAMILY HISTORY Problem Relation Age of Onset Alzheimer's Disease Mother Cancer Father brain tumor ,lung removed and kidney removed COPD Brother Osteoporosis Paternal Grandfather Alzheimer's Disease Sister Social History Tobacco Use Smoking status: Never Smokeless tobacco: Never Vaping Use Vaping status: Never Used Substance Use Topics Alcohol use: Yes Comment: occasional Drug use: No EXAM: BP 122/74 Pulse (!) 59 Temp 36.1 ?C (97 ?F) (Left Tympanic) Wt 119.3 kg (263 lb) SpO2 96% BMI 35.67 kg/m? PHYSICAL EXAM: Physical Exam Vitals reviewed. Constitutional: Appearance: Normal appearance. HENT: Head: Normocephalic. Right Ear: Ear canal and external ear normal. There is no impacted cerumen. Left Ear: Ear canal and external ear normal. There is no impacted cerumen. Ears: Comments: TM bulging Nose: Congestion and rhinorrhea present. Comments: Nasal erosions right Mouth/Throat: Pharynx: Oropharyngeal exudate and posterior oropharyngeal erythema present. Neck: Vascular: No carotid bruit. Cardiovascular: Rate and Rhythm: Normal rate and regular rhythm. Pulses: Normal pulses. Heart sounds: Normal heart sounds. Pulmonary: Effort: Pulmonary effort is normal. Breath sounds: Normal breath sounds. Comments: Negative egophony Musculoskeletal: General: Normal range of motion. Comments: Moves all ext. Without difficulty, walks w/o assistive device Lymphadenopathy: Cervical: No cervical adenopathy. Skin: General: Skin is warm and dry. Neurological: Mental Status: He is alert and oriented to person, place, and time. LABS: ASSESSMENT/PLAN: 1. Acute maxillary sinusitis, recurrence not specified - ICD9: 461.0, ICD10: J01.00 - Will begin treatment with Augmentin 875 mg PO BID for 10 days - AMOXICILLIN 875 MG-POTASSIUM CLAVULANATE 125 MG TABLET - PROMETHAZINE-PHENYLEPHR INE 6.25 MG-5 MG/5 ML ORAL SYRUP 4 times a dy as needed Discussed treatment plan and patient voices understanding. Patient's questions answered appropriately. Medications and potential side effects were discussed and patient voices understanding. Return to the office as scheduled or as needed for worsening/no improvement. ARNOLD Barnes Jacqueline A, APRN.CNP 02/19/2025 10:04 AM Addendum 1) Augmentin 2 x day for 10 days 2) Phenergan and phenylephrine 1 tsp 4 times a day 3) Off work for 24 hours Allergies As of Date: 02/19/2025 Noted Allergy Reaction IODINATED CONTRAST MEDIA 04/13/2017 14 - Other: See Comments Comments: Kidney failure Date Reviewed: 02/19/2025 Reviewed by: Leora Tejada MA - Fully Assessed Reason for Visit: Acute Visit [896] Cmt: Cough, congestion, ear pressure for about a week Primary Visit Diagnosis:Acute maxillary sinusitis, recurrence not specified [J01.00] Order(s):amoxicillin-cl avulanate potassium (AUGMENTIN) 875-125 mg per tabletTake 1 tablet by mouth every 12 hours for 10 days.Disp: 20 tabletRfl: 0 promethazine-PHENYLephr ine 6.25-5 mg/5 mL syrupTake 5 mL by mouth four times a day as needed (FOR CONGESTION AND POST NASAL DRIP; MAY CAUSE SEDATION ). (more content not included)... Normal [facility] CNOVon 02-12-2025 CNOV Office Visit ([facility] ) JONOROBERTO Fernández ([id number]) 1960 M Date Time Provider Department 02/12/25 11:15 AM ROMEL MAS During your visit today, we recorded the following information about you: Apurva Humphreys, RN 02/12/2025 11:29 AM Signed Patient presents with: Left Foot - New, Pain AMB ROOMING INTAKE FLOWSHEET DATA Risk Screening Do you have concerns about personal safety or safety in the home?: No Pain Pain Level: 5 (8/10 when pressure applied) Pain Location: Foot-Left Description: Sharp Duration Units: Months Frequency: Intermittent Intervention/Comfort measure: Relaxation Patient presents as referral from Hanh Sharma CNP for left foot pain with tailors bunion and callus. Xray done 01/22/25. States that it has been bothering him for months. Tender to touch, sheets and shoes can bother him. States that he tried a corn pad that helped while using it, but pain returned shortly after. Romel Mas 02/12/2025 11:29 AM Signed Consultation requested by Dr. Sharma for an opinion regarding tailors bunion left foot. My final recommendations will be communicated back to the requesting physician by way of shared Medical record or letter to requesting physician via US mail. Initial Podiatric Office Visit: Chief Complaint: This 64 year old male who presents with chief complaint:tailors bunion of left foot HPI Patient presents to clinic for evaluation of left foot Complains of tailors bunion to the left foot States this has been going on for about 3 months. Treats with rest and wider shoes and use of tylenol. PAIN EVALUATION 02/12/2025 1039 Pain Level: 5 8/10 when pressure applied Pain Location: Foot-Left Description: Sharp Duration Units: Months Frequency: Intermittent Intervention/Comfort measure: Relaxation Hemoglobin A1C (%) Date Value 09/02/2013 5.7 HBA1C, Rebekah (%) Date Value 05/13/2009 6.2 PCP: Kenneth Beckett MD PAST MEDICAL HISTORY Diagnosis Date A-fib ([facility]) 04/2020 Current Outpatient Medications Medication Sig Promethazine-DM (PHENERGAN-DM) 6.25-15 mg/5 mL syrup Take 5 mL by mouth four times a day as needed. sertraline (ZOLOFT) 50 mg tablet Take 1 tablet by mouth once daily. No current facility-administered medications for this visit. ALLERGIES Allergen Reactions Iodinated Contrast * Other: See Comments Kidney failure PAST SURGICAL HISTORY Procedure Laterality Date COLONOSCOPY FLX DX W/COLLJ SPEC WHEN PFRMD 11/27/2016 Colonoscopy LAPAROSCOPIC CHOLECYSTECTOMY 06/20/2019 Dr. Gagan Richardson PAST SURGICAL HISTORY OF finger surgery x 2 TONSILLECTOMY PRIMARY/SECONDARY Tonsillectomy and adnoids VENOUS EXTREMITY UNILATERAL 10/08/2021 US neg DVT left lower leg FAMILY HISTORY Problem Relation Age of Onset Alzheimer's Disease Mother Cancer Father brain tumor ,lung removed and kidney removed COPD Brother Osteoporosis Paternal Grandfather Alzheimer's Disease Sister Social History Tobacco Use Smoking status: Never Smokeless tobacco: Never Vaping Use Vaping status: Never Used Substance Use Topics Alcohol use: Yes Comment: occasional Drug use: No REVIEW OF SYSTEMS GENERAL: Negative for Malaise, significant weight loss, fever RESPIRATORY: Negative for cough, wheezing and shortness of breath CARDIOVASCULAR: Negative for chest pain, leg swelling and palpitations GI: Negative for abdominal discomfort, blood in stools or black stools and change in bowel habits : Negative for dysuria, frequency and incontinence MUSCULOSKELETAL: Negative for joint pain or swelling, back pain, and muscle pain. SKIN: Negative for lesions, rash, and itching. HEMATOLOGY/LYMPHOLOGY Negative for prolonged bleeding, bruising easily, and swollen nodes. ENDOCRINE: Negative for cold or heat intolerance, polyuria, polydipsia and goiter. NEURO: negative Physical Exam: Constitutional: Pt is a well developed 64 year old male who is alert, oriented and cooperative Eyes: Following during examination. No redness or drainage. Respiratory: RR normal and nonlabored. Even breathing. No evidence of distress or shortness of breath. Psychology: Patient is engaged during conversation. Normal affect and mood. Does not appear depressed or anxious during encounter. Vascular: Dorsalis pedis and posterior tibial pulses palpable as b/l Capillary Fill time < 5 seconds to digits 1-5 b/l Skin temperature warm to warm proximal to distal b/l Hair growth present to digits Neurological: intact light touch/epicritic sensation b/l intact protective sensation no significant neurological deficits Dermatological: Nails 1-5 b/l appear normal. Webspaces clean and dry 1-4 b/l. Skin appears well hydrated and supple. good color, texture, turgor. No open lesions present. Callus to the plantar aspect of left 5th metata (more content not included)... Normal [facility] CNOVon 01-22-2025 CNOV Office Visit ([facility] ) ROBERTO DE LA CRUZ ([id number]) 1960 M Date Time Provider Department 01/22/25 2:00 PM [facility] During your visit today, we recorded the following information about you: Temperature Pulse Blood pressure Weight 98.1 degrees 64/minute 128/74 118.4 kg Hanh Sharma, MANAGER DRUG SAFETY.NETWORK DESIGN ARCHITECT 01/22/2025 2:34 PM Signed This is a 64 year old male who presents today with: Patient presents with: Pain: Left, lateral foot and calf pain Headache HISTORY OF PRESENT ILLNESS: Roberto De La Cruz is a 64 year old male. Patient presents with: Pain: Left, lateral foot and calf pain Headache Left lateral foot pain that is burning pain. Radiated clear up into calf yesterday. - yesterday 10 Started about 2 weeks ago Intermittent Waxes and wanes Frontal headache Lately headache every day Doesn't usually get a headache Had flu this winter. Cough medicine helped. Feels a little out of sorts. Ongoing for a couple months Cough and sinus congestion. No sore throat Cough non-productive No energy No ataxia No nausea No fever but chills PAST MEDICAL HISTORY: PAST MEDICAL HISTORY Diagnosis Date A-fib (HCC) 04/2020 PAST SURGICAL HISTORY Procedure Laterality Date COLONOSCOPY FLX DX W/COLLJ SPEC WHEN PFRMD 11/27/2016 Colonoscopy LAPAROSCOPIC CHOLECYSTECTOMY 06/20/2019 Dr. Gagan Richardson PAST SURGICAL HISTORY OF finger surgery x 2 TONSILLECTOMY PRIMARY/SECONDARY Tonsillectomy and adnoids VENOUS EXTREMITY UNILATERAL 10/08/2021 US neg DVT left lower leg ALLERGIES Iodinated Contrast Media MEDICATIONS Current Outpatient Medications Medication Sig Promethazine-DM (PHENERGAN-DM) 6.25-15 mg/5 mL syrup Take 5 mL by mouth four times a day as needed. sertraline (ZOLOFT) 50 mg tablet Take 1 tablet by mouth once daily. No current facility-administered medications for this visit. FAMILY HISTORY Problem Relation Age of Onset Alzheimer's Disease Mother Cancer Father brain tumor ,lung removed and kidney removed COPD Brother Osteoporosis Paternal Grandfather Alzheimer's Disease Sister Social History Tobacco Use Smoking status: Never Smokeless tobacco: Never Vaping Use Vaping status: Never Used Substance Use Topics Alcohol use: Yes Comment: occasional Drug use: No EXAM: BP 128/74 Pulse 64 Temp 36.7 ?C (98.1 ?F) (Left Tympanic) Wt 118.4 kg (261 lb) SpO2 95% BMI 35.40 kg/m? PHYSICAL EXAM: Physical Exam Vitals reviewed. Constitutional: Appearance: Normal appearance. HENT: Head: Normocephalic. Right Ear: Ear canal and external ear normal. There is no impacted cerumen. Left Ear: Ear canal and external ear normal. There is no impacted cerumen. Ears: Comments: Left ear bulging Nose: No congestion or rhinorrhea. Comments: Pressure and pain, maxillary and frontal Mouth/Throat: Pharynx: Oropharyngeal exudate present. No posterior oropharyngeal erythema. Cardiovascular: Rate and Rhythm: Normal rate and regular rhythm. Pulses: Normal pulses. Heart sounds: Normal heart sounds. Pulmonary: Effort: Pulmonary effort is normal. Comments: Left lower lobe crackles, otherwise CTA Abdominal: General: Bowel sounds are normal. Palpations: Abdomen is soft. Musculoskeletal: General: Normal range of motion. Comments: Left lateral foot- ADONAY joint with callus, red, cool, larger than right- burning pain with palpation Skin: General: Skin is warm and dry. Neurological: Mental Status: He is alert and oriented to person, place, and time. Psychiatric: Mood and Affect: Mood normal. Behavior: Behavior normal. LABS: ASSESSMENT/PLAN: 1. Foot pain, left - ICD9: 729.5, ICD10: M79.672 (primary diagnosis) Tailors bunion vs with stress fracture - XR FOOT GENERAL 3V AP/LAT/OBL LEFT - CONSULT TO PODIATRY - File callus - Get bunion pads 2. Acute maxillary sinusitis, recurrence not specified - ICD9: 461.0, ICD10: J01.00 - Will begin treatment with Augmentin 875 mg PO BID for 10 days - AMOXICILLIN 875 MG-POTASSIUM CLAVULANATE 125 MG TABLET - Saline nasal spray frequently while on antibiotic - Follow up in 2 weeks Discussed treatment plan and patient voices understanding. Patient's questions answered appropriately. Medications and potential side effects were discussed and patient voices understanding. Return to the office as scheduled or as needed for worsening/no improvement. ARNOLD Barnes Jacqueline A, APRN.CNP 01/22/2025 2:28 PM Addendum 1) Augmentin 2 x day for 10 days- take with food 2) Saline nasal spray frequently while on antibiotic 3) File callus with fingernail file 4) Get some corn pads to alleviate pressure 5) Get X-ray 6) Consult podiatry Allergies As of Date: 01/22/2025 Noted Allergy Reaction IODINATED CONTRAST MEDIA 04/13/2017 14 - Other: See (more content not included)... Normal [facility] XR FOOT 3V AP/LAT/OBL LTon 0 01-22-2025 XR FOOT 3V AP/LAT/OBL LT * * *Final Report* * * DATE OF EXAM: Jan 22 2025 3:04PM WOX [id number] - XR FOOT 3V AP/LAT/OBL LT / PROCEDURE REASON: Foot pain, left * * * * Physician Interpretation * * * * EXAM(s): XR FOOT 3V AP/LAT/OBL LT..... HISTORY: 64 years old Clinical information: Foot pain, left Acute pain in left foot along lateral side of pinky toe and distal metatarsal. TECHNIQUE: Images: XR FOOT 3V AP/LAT/OBL LT Comparison: 08/11/2022. RESULT: Findings: No bony erosion, fracture, or dislocation. Mild soft tissue swelling adjacent to the middle tarsophalangeal joint left fifth toe. Interphalangeal joint spaces intact. Tarsal bones are intact. Bipartite sesamoid bones, greater toes bilaterally. IMPRESSION: No acute abnormality Photoflash Powder Mixer: KEVIN Transcribe Date/Time: Jan 26 2025 11:50A Dictated by : BENEDICT CROWLEY MD This examination was interpreted and the report reviewed and electronically signed by: BENEDICT CROWLEY MD on Jan 26 2025 11:53AM EST [id number] Normal [facility] 12 Lead EKG performed by [facility] on 01-15-2025 12 Lead EKG performed by [facility] [address] [place] [address] 12 Lead EKG performed by [facility] 01/15/25 1547 MR#: [id number] Acct: [id number] Name: ROBERTO DE LA CRUZ Rep #: [id number] : 1960 64 From: Ole Moss MD Attending Dr: Dr. Ole Moss MD Status: DE P AMB Ordering Dr: Ole Moss MD Date: 01/15/25 [place] [facility] Sex: M C Admitted: BMS/12 Lead EKG performed by [facility] ECG Report Interpretation ---Sinus Rhythm WITHIN NORMAL LIMITSElectronically signed on 01/15/2025 at 15:[address] Ole Moss [employer] Version [id number] 01/15/25 1506 Date Ole Moss MD CC: Dr. Kenneth Beckett MD Date Dictated: 01/15/251546 Date Transcribed: 01/15/251546 Photoflash Powder Mixer: Signed Normal [facility] Cardiology Visit Reporton Cardiology Visit Report [facility] [address] [place] [address] OFFICE VISIT Date of Service: 01/15/25 MR#: [id number] Acct: [id number] Name: ROBERTO DE LA CRUZ Rep #: [id number] : 1960 Provider: Dr. 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 He comes in today for monitoring of his cardiovascular status. Patient has a history of paroxysmal atrial fibrillation that occurred the time when he was drinking a lot extra caffeine and bronc had bronchitis a little over 5 years ago. The patient was not aware that he was in atrial fibrillation was picked up on physical exam by his primary care physician. The patient was anticoagulated for 30 days and then underwent direct-current cardioversion. He is not aware that he is ever been back in atrial fibrillation since then. He is aware of how to take his own pulse and feel further irregularity. Patient EKG in office today shows sinus rhythm at 62 bpm and is within normal normal limits. The patient does not have a history of sleep apnea or alcohol use. He had a negative echocardiogram and negative stress echocardiogram in early 2019. He is EF is known to be in the 60% range. Patient denies any change in his exercise tolerance denies any syncope or near syncope denies any PND orthopnea. Intake Vital Signs 12/20/23 15:16 01/15/25 14:31 Height 6 ft 1 in 6 ft 1 in Weight: 260 lb BMI 34.2 BP 124/75 H Blood Pressure Location Lt brachial Position Sitting Respiration 18 Pulse 61 Pulse Source Monitor Oxygen Delivery Method room air Oxygen Flow Rate (L/min) 94 Intake Visit Reasons: 1 Y FU Barrel Roller Required: No Accompanied by: Self Is patient in pain?: No Allergies Iodinated Contrast Media (CONTRASTS) Adverse Reaction (Verified 01/15/25 14:32) Other Medications ???Medication ???Instructions ???Recorded ???Confirmed ???Type NK 10/07/21 01/15/25 History Ejection fraction %: 60 Have you fallen in the past year?: No [facility] Medical History Paroxysmal atrial fibrillation Hypersomnia Chest pain New onset atrial fibrillation Acute cholecystitis Acute renal insufficiency MRSA infection right ring finger infection Tenosynovitis of finger Surgical History History of cardioversion (01/03/20) History of tonsillectomy and adenoidectomy History of colonoscopy (01/20/17) history of finger surgery History of cholecystectomy (06/20/19) Family History Mother Alzheimer's disease Father Brain tumor S/P lobectomy of lung S/p nephrectomy Cancer Brother COPD (chronic obstructive pulmonary disease) Sister Alzheimer's disease Social History household members: spouse Smoking Status: Never smoker substance use type: does not use ROS Const Const: Positive for fatigue; Negative for weakness ENT ENT: Negative for dizziness or balance problems Cardio Chest Pain: No Palpitations: No Edema: None Muscle aches with walking: None Resp Respiratory: Positive for SOB with activity; Negative for SOB at rest or SOB orthopnea SOB lying down GI GI: Negative nausea, vomiting or heartburn Musc Musc: Negative for muscle weakness or balance problems Neuro Neuro: Negative for dizziness, lightheadedness, near syncope, syncope or weakness Endo Endo: Positive for fatigue Cardiology Exam Const Appearance: cooperative, comfortable, no acute distress and well developed Nutritional Appearance: overweight Head Head: normal to inspection Eyes General: appearance normal, both eyes and all related structures Neck Neck: normal visual inspection and no JVD Carotids: Negative bruit Chest Chest inspection: normal inspection of the chest Auscultation: Bilateral: Clear to Auscultation Cardio Rate: regular rate Rhythm: regular rhythm Heart sounds: S1 normal and S2 normal; Negative rub, gallop or murmur Neuro General: patient alert and patient oriented x3 Extremities Lower Extremity Edema: None: Bilateral Psych Psychological: normal affect Supplemental Info Supplemental Information Labs: No Data to Display Diagnostics: Electrocardiogram Pulmonary: No Data to Display Past Visits: Cardiology Visit 01/15/25 Assessment and Plan Assessment and Plan (1) Paroxysmal atrial fibrillation: Status: Acute Plan: Patient has a history of back in 2020 developing. Shows atrial fibrillat (more content not included)... Normal [facility] ED NOTEon 12-25-2024 ED NOTE HNO ID: [id number] Author: MAURISIO MELISSA RN Service: Emergency Medicine Author Type: Registered Nurse Type: ED Notes Filed: 12/25/2024 20:49 Note Text: C/o pain below right knee x 2 days. Denies injury. Triaged to waiting room. Encouraged patient to advise security or registration for any concerns and an ER nurse will be happy to re-evaluate. Patient agreeable Normal [facility] XR KNEE RIGHT 1-2 VIEWSon XR KNEE RIGHT 1-2 VIEWS Interpreted By: Dain Morales, STUDY: XR KNEE RIGHT 1-2 VIEWS; ; 12/25/2024 8:50 pm INDICATION: Signs/Symptoms:pain. COMPARISON: None. ACCESSION NUMBER(S): [id number] ORDERING CLINICIAN: CHANDRIKA BRIDGES FINDINGS: There is moderate joint space loss of the compartment. There is tricompartmental spurring. There is no fracture or malalignment. There is no joint effusion. 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 MACRO: None. 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 MACRO: None. Signed by: Dain Morales 12/25/2024 9:21 PM Dictation workstation: [id number] MMODAL Interpreted By: Dain Morales, STUDY: XR KNEE RIGHT 1-2 VIEWS; ; 12/25/2024 8:50 pm INDICATION: Signs/Symptoms:pain. COMPARISON: None. ACCESSION NUMBER(S): [id number] ORDERING CLINICIAN: CHANDRIKA BRIDGES FINDINGS: There is moderate joint space loss of the compartment. There is tricompartmental spurring. There is no fracture or malalignment. There is no joint effusion. [facility] MMODAL Dain Morales MD - 12/25/2024 Interpreted By: Dain Morales, STUDY: XR KNEE RIGHT 1-2 VIEWS; ; 12/25/2024 8:50 pm INDICATION: Signs/Symptoms:pain. COMPARISON: None. ACCESSION NUMBER(S): [id number] ORDERING CLINICIAN: CHANDRIKA BRIDGES FINDINGS: There is moderate joint space loss of the compartment. There is tricompartmental spurring. There is no fracture or malalignment. There is no joint effusion. 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 MACRO: None. Signed by: Dain Morales 12/25/2024 9:21 PM Dictation workstation: [id number] [facility] Work Phone: Radiology Study observation (narrative) [facility] Work Phone: XR Knee - right 1 or 2 Views Ordered By: Dain Morales on 12-25-2024 [facility] Work Phone: 36on 11-30-2024 36 Called patient and l eft a message, stating okay to extend the RTW. Letter is done and can be picked up any office when he can does not matter where. Can call with any questions. Normal [facility] 36 Okay for extension. Thanks! Normal [facility] 36 Left endoscopic carp al tunnel release and left ulnocarpal joint injection; DOS: 10/20/24 Okay to extend time off to 2/5? Normal [facility] 36 Name of caller: Saulo Contact phone number: [phone] Relationship to Patient: Self Provider: Zeke Practice: [facility] Chief Complaint/Reason for Call: Pt called in asking for an extension to RTW. Pt states his current return date is 12/04 but he is asking to return on 12/13. Pt states he would like to pick this letter up, and is asking for a call when it is ready. Please advise. Best time of day caller can be reached: Any Patient advised that office/PCP has 24-48 business hours to return their call: N/A Normal [facility] CNPNon 11-22-2024 [facility] Telephone (FAMLaniWS) ROBERTO DE LA CRUZ ([id number]) 1960 Jolene Date Time Provider Department 11/22/24 SOPHY, KENNETH RAYGOZA During your visit today, we recorded the following information about you: Kenneth Beckett MD 11/22/2024 8:11 AM Signed Let him know his rsv, covid and flu are negative. Appears to be viral at this point. Call if worsens or not better by end of the week James Brenner LPN 11/22/2024 10:51 AM Signed Pt notified of results and instructions, pt verbalizes understanding. James Brenner LPN Allergies As of Date: 11/22/2024 Noted Allergy Reaction IODINATED CONTRAST MEDIA 04/13/2017 14 - Other: See Comments Comments: Kidney failure Date Reviewed: 11/21/2024 Reviewed by: Yenifer Archuleta MA - Fully Assessed Reason for Visit: Results [95] Prescriptions as of 11/22/2024 - Promethazine-DM (PHENERGAN-DM) 6.25-15 mg/5 mL syrup Take 5 mL by mouth four times a day as needed. - sertraline (ZOLOFT) 50 mg tablet Take 1 tablet by mouth once daily. Problem List As Of Date 11/22/2024 Noted Resolved Encounter for screening colonoscopy [Z12.11] 11/27/2016 History of colonic polyps [Z86.0100] 07/21/2018 Paroxysmal atrial fibrillation (HCC) [I48.0] 04/02/2021 Hyperlipidemia, mixed [E78.2] 08/09/2023 Hypertriglyceridemia [E78.1] 08/09/2023 Anxiety with depression [F41.8] 08/09/2023 Encounter Status:Closed by JAMES BRENNER on 11/22/24 [facility] CNOVon 11-21-2024 CNOV Office Visit (FAMPWS ) ROBERTO DE LA CRUZ ([id number]) 1960 Jolene Date Time Provider Department 11/21/24 2:40 PM KENNETH BECKETT During your visit today, we recorded the following information about you: Temperature Pulse Blood pressure Weight 99.3 degrees 83/minute 112/74 116.6 kg Height 1.829 m Kenneth Beckett MD 11/21/2024 3:13 PM Signed Patient presents with: Diarrhea HPI: Patient presents today for office visit for acute illness. Complaints of coughing and diarrhea that came on suddenly about 3 days ago. Diarrhea is very watery. Feels very fatigued and rundown. Duration: 3 days Fever: No. Headache: Yes. Sore throat: No. Ear pain: No. Nasal drainage: Yes. Cough: Yes. Shortness of breath: Sometimes. Nausea: No. Vomiting: No. Diarrhea: Yes.no formed stool. Very watery with severe gas. Still drinking ok and urinating well. Has been taking tylenol otc. No recent travel hx or antibiotic usage. MEDICATIONS: Current Outpatient Medications Medication Sig sertraline (ZOLOFT) 50 mg tablet Take 1 tablet by mouth once daily. No current facility-administered medications for this visit. ALLERGIES: ALLERGIES Allergen Reactions Iodinated Contrast * Other: See Comments Kidney failure PAST MEDICAL HISTORY Diagnosis Date A-fib (HCC) 04/2020 PAST SURGICAL HISTORY Procedure Laterality Date COLONOSCOPY FLX DX W/COLLJ SPEC WHEN PFRMD 11/27/2016 Colonoscopy LAPAROSCOPIC CHOLECYSTECTOMY 06/20/2019 Dr. Gagan Richardson PAST SURGICAL HISTORY OF finger surgery x 2 TONSILLECTOMY PRIMARY/SECONDARY Tonsillectomy and adnoids VENOUS EXTREMITY UNILATERAL 10/08/2021 US neg DVT left lower leg FAMILY HISTORY Problem Relation Age of Onset Alzheimer's Disease Mother Cancer Father brain tumor ,lung removed and kidney removed COPD Brother Osteoporosis Paternal Grandfather Alzheimer's Disease Sister Social History Tobacco Use Smoking status: Never Smokeless tobacco: Never Vaping Use Vaping status: Never Used Substance Use Topics Alcohol use: Yes Comment: occasional Drug use: No Reviewed current medications, allergies, past medical history, surgical history, family history and social history today. REVIEW OF SYSTEMS All other reviewed and negative other than HPI. VITALS: BP 112/74 Pulse 83 Temp 37.4 ?C (99.3 ?F) Ht 182.9 cm (6') Wt 116.6 kg (257 lb) SpO2 98% BMI 34.86 kg/m? Last 4 Encounter Wt Readings: Date: Wt: 11/21/2024 116.6 kg (257 lb) 08/06/2024 112.9 kg (249 lb) 05/29/2024 115 kg (253 lb 8.5 oz) 04/01/2024 114.3 kg (252 lb) PHYSICAL EXAMINATION: General appearance: Well appearing, alert, in no acute distress, well-hydrated, well nourished. Skin: Skin color, texture, turgor normal, no suspicious rashes or lesions Head: Normocephalic, no masses, lesions, tenderness or abnormalities Eyes: Anicteric sclera. Pupils are equally round and reactive to light. Extraocular movements are intact. Ears: External ears normal, canals clear Nose/Sinuses: Nares normal, septum midline, mucosa normal, no drainage or sinus tenderness Oropharynx: Lips, mucosa, and tongue normal, teeth and gums normal, oropharynx normal Neck: Supple, no adenopathy Lungs: Lungs clear to auscultation. No wheezing, rhonchi, rales Heart: RRR without murmur, gallop, or rubs. No ectopy Abdomen: Normal abdominal exam, Abdomen soft, non-tender. Bowel sounds normal. No masses, organomegaly Extremities: No deformities, edema, skin discoloration, clubbing or cyanosis. Good capillary refill. Musculoskeletal: No joint swelling, deformity, or tenderness ASSESSMENT/PLAN: 1. URI, acute - ICD9: 465.9, ICD10: J06.9 (primary diagnosis) - Discussed viral etiology and rationale for treatment. - Symptomatic treatment with prn analgesia - Supportive care with fluids and rest - COVID AND INFLUENZA A/B AND RSV PCR, ROUTINE - PROMETHAZINE-DM 6.25 MG-15 MG/5 ML ORAL SYRUP 2. Diarrhea of presumed infectious origin - ICD9: 009.3, ICD10: R19.7 - COVID AND INFLUENZA A/B AND RSV PCR, ROUTINE - PROMETHAZINE-DM 6.25 MG-15 MG/5 ML ORAL SYRUP Kenneth Beckett MD Allergies As of Date: 11/21/2024 Noted Allergy Reaction IODINATED CONTRAST MEDIA 04/13/2017 14 - Other: See Comments Comments: Kidney failure Date Reviewed: 11/21/2024 Reviewed by: Yenifer Archuleta MA - Fully Assessed Reason for Visit: Diarrhea [35] Primary Visit Diagnosis:URI, acute [J06.9] Other Visit Diagnosis:Diarrhea of presumed infectious origin [R19.7] Order(s):COVID AND INFLUENZA A/B AND RSV PCR, ROUTINE [SQCVFLRS] Order #: [id number]. #:[id number] Promethazine-DM (PHENERGAN-DM) 6.25-15 mg/5 mL syrupTake 5 mL by mouth four times a day as needed.Disp: 120 mLRfl: 0 Prescriptions as of 11/21/2024 - Promethazine-DM (PHENERGAN-DM) 6.25-15 mg/5 mL syrup Take 5 mL by mouth four (more content not included)... Normal [facility] COVID AND INFLUENZA A/B AND RSV PCR, ROUTINEon 11-21-2024 SARS-CoV-2 (COVID-19) RNA STORM+probe Ql (Unsp spec) SARS-COV-2 (AGENT OF COVID-19) RNA: Not detected INFLUENZA A RNA: Not detected INFLUENZA B RNA: Not detected RESPIRATORY SYNCYTIAL VIRUS (RSV) RNA: Not detected Normal [facility] Comment on above: Performed By: #### C VFLRS ####[facility] LABCLIA [id number] [address] [place] 37on 10-30-2024 37 THERAPY TO MAKE YOUR HANDS LESS TENDER Hand injuries are often very tender during the early healing phase. Often, tenderness in scars gets worse starting one to two weeks after injury or surgery. Unfortunately, this tenderness does not always go away by itself. The nerves in the hand are special and are more sensitive than other parts of the body. After any injury, the skin of the hand must get used to being touched again for the tenderness to go away. If you do not touch the sore areas of your hand, they may remain very sensitive and tender. The techniques of PERCUSSION and FRICTION MASSAGE outlined in this pamphlet will help speed up the process of recovery from tenderness in your hands and fingers. The goal of these exercises is to make your wounds less tender. It is normal for these exercises to be somewhat uncomfortable while doing them or shortly afterwards. If the exercises are too painful, try using less pressure. If that does not work, then give yourself a several hour break and try again. If pain again is a problem, speak with your doctor or your therapist. These exercises will not be recommended until it is safe to do them. PERCUSSION (Tapping): This technique activates the automatic reflex which makes us ignore things which are very repetitive. This reflex will dull the tenderness in areas of your hand that are touched repeatedly. Here is how to do percussion: 1. Tap lightly on the area of your hand which is tender. You can tap on the sensitive area with a finger tip of your other hand or with a light object such as a pencil. 2. Find the spot which is the most tender. 3. Note the time, and begin to tap rapidly (2-3 times a second), lightly and continuously on the most tender area. 4. Keep tapping without a break for three minutes or until you notice the feeling in the area change. The area may start to feel numb or it may simply feel a little bit less tender. 5. Take a minute rest and begin again. You may find that a different area is now the most tender spot. This exercise should be done as many times as possible during the day. It takes many thousands of taps to really change the tenderness in a sore area. The sooner you accumulate that many taps, the sooner your wounds will be more comfortable. FRICTION MASSAGE: The goal of friction massage is to STRETCH the scar tissue beneath the skin. As with percussion, it should be done many times during the day. This exercise not only helps improve tenderness, but helps restore the contour of the skin to a more normal appearance. Here is how to do friction massage: 1. Place a finger tip of your other hand against the central area of the scar. 2. Mentally note four directions that the skin can be pushed sideways: near, far, left and right. 3. With your finger tip pressed firmly against the scar and without sliding, gently but steadily push the skin to one side as if you were trying to slide the skin off of the bone. Hold this position for five seconds. 4. Briefly relax and then repeat this maneuver in one of the other directions. Make sure you attempt to slide the skin in all four directions. 5. If the scar is wider than your finger tip, repeat this stretching exercise on every point of the scar. This exercise is done without any skin lubrication. Remember to do this exercise before applying any antibiotic ointment or moisturizing creams. [facility] Office Visiton 10-30-2024 Follow-up visit [id number] Saulo De La Cruz 1960 M Date Provider Department Center 10/30/2024 [id number] Jolene [facility] OR None Family History Problem Relation Age of Onset Alzheimer's disease Mother Cancer Father Alzheimer's disease Sister COPD Brother Family Status - Relation Status Age at Mother Father Sister Brother Level of Service:[address] CT POSTOP FOLLOW UP VISIT RELATED TO ORIGINAL PX Reason for Visit and Comments: Post-op [483] - IPO sx Endoscopic LEFT carpal tunnel release, LEFT ulnocarpal joint injection; DOS 10/20/24 Normal [facility] Progress Noteon 10-30-2024 Progress Note Subjective: Roberto is approximately 10 day(s) s/p Left endoscopic carpal tunnel release and left ulnocarpal joint injection; DOS: 10/20/24. Pain is minimal. He is taking Tylenol prn for pain relief. He denies significant complaints. He denies drainage from his incision. The patient is very pleased with his early postoperative results and reports significant improvement in his hand paresthesias following surgery. He has only noticed a few episodes of fleeting hand paresthesias. He has expected mild swelling and discomfort in the base of his palm. He feels his wrist pain is significantly improved following the injection at the time of his surgery. He is accompanied today by his . He is hopeful to proceed with endoscopic carpal tunnel release on the right once he is fully recovered from his left-sided surgery. 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 He is approved to remain off of work for an additional month and would like to proceed with work restrictions as planned. Objective: BP 106/82 Pulse 58 Ht 6' 2 (1.88 m) Wt 248 lb (112 kg) BMI 31.84 kg/m? Left Upper Extremity Skin: Incision(s) is healed with intact Prolene suture. No drainage. No erythema. Edema: Minimal surrounding edema. Perfusion: Brisk capillary refill to all digits with 2+ radial pulse. Sensation: LEFT Hand 2-point discrimination (mm) Thumb Index Long Ring Small r u r u r u r u r u 5 5 5 5 5 5 5 5 5 5 Median Ulnar ROM: Wrist: Flexion 45? Extension 60? Supination 80? Pronation 80? Fingers flex to palm. XRay: None Assessment Diagnosis Plan 1. Carpal tunnel syndrome of left wrist 2. S/P endoscopic carpal tunnel release 3. DRUJ (distal radioulnar joint) post-traumatic arthritis, left Plan I would like Roberto to gradually return to normal activities without restrictions and begin wrist and hand range of motion exercises without limits to include nerve gliding exercises. The patient was advised to advance weightbearing activities using pain as a guide. Sutures were removed today in the office without complication. Expected postoperative recovery course was discussed with the patient including pillar pain and length of time for maximum improvement and return of full strength which can take up to a year. The patient was advised to perform edema control and scar tissue massage. The patient was provided with home going exercise instructions. his questions were answered today in the office. As long as he is gradually improving as expected, I would like the patient to follow up on an as needed basis. He was advised to reach out to the office when he is ready to schedule his right sided endoscopic carpal tunnel release. He is comfortable with the plan. Immobilization: NO immobilization required at this point - FULL ROM encouraged Weight Bearing: Weight bearing as tolerated Rehabilitation: Home Exercises: full range of motion and to be gradual weight bearing. Instructions reviewed today in office. Dr. Alanis will see Roberto back on an as needed basis to see how he is doing. Roberto knows to call the office with any questions or concerns in the interim. Future Imaging: None Sutures were removed in office today. No dressing was applied to left wrist. Patient tolerated well with no concerns. Performed by: NM Electronically signed by Jhon Garcia PA-C to Edinson Alanis M.D. Hand & Upper Extremity Surgery 10/30/2024 at 5:02 PM. (Please note that portions of this note may have been completed with a voice recognition program. Efforts were made to edit the dictations but occasionally words are mis-transcribed.) [facility] Nursing Noteon 10-20-2024 Nursing Note Pt and family verbalized understanding of recovery instructions, pt verbalized a readiness to be discharged home. Pt discharged home via wheelchair accompanied by RN/volunteer. Pt has had all their belongings returned to them at discharge [facility] Nursing Note Pt arousable- oral airway removed- will continue to monitor [facility] Nursing Note Pt received from OR via cart, spont. Resp. With CLINICAL TRIAL EDUCATOR in attendance. Placed on monitor. Monitor alarms on in PACU , pt has oral airway will continue monitor [facility] Op Noteon 10-20-[address] [facility] OR [address] [facility] [address] Dept: [phone] Loc: [phone] Operative Report Patient Name: Roberto De La Cruz Date of : 1960 Date of Surgery: 10/20/24 Preoperative Diagnosis: LEFT carpal tunnel syndrome, LEFT wrist pain Postoperative Diagnosis: Same Procedure: Endoscopic LEFT carpal tunnel release with LEFT wrist injection Surgeon: Edinson Alanis MD 1st Assist: Hammad Edwards MD 2nd Assist: Jhon Garcia PA-C Implants: None Specimens Removed: None Anesthesia: MAC Local Anesthesia: 1% lidocaine with epinephrine (1:100,000) for a total of 10ml into the subcutaneous tissues of the operative site(s) Tourniquet: Brachium Estimated Blood Loss: <5ml Pre Operative Antibiotics: Yes Indications: Mr. Roberto De La Cruz is a 63 y.o. year-old male with LEFT carpal tunnel syndrome who failed conservative management and elected to proceed with surgical intervention. I have discussed with him, preoperatively, the complications, limitations, expectations, alternatives, and risks of surgical intervention to include but not be limited to neurovascular injury and incomplete nerve recovery which he has demonstrated understanding. No guarantees were given or implied. After having all of his questions answered to his satisfaction, Mr. Roberto De La Cruz has provided written informed consent to proceed. Please see previous notes for full operative risk discussion. Procedure: Roberto De La Cruz was identified in the preoperative waiting area. His operative site was initialed and consent was reviewed. Final questions were answered. He was brought to the operating room and placed in the supine position. All bony prominences were well padded. The operative extremity was prepped and draped in the usual sterile fashion. A surgical timeout was then performed with the patient's identification, the procedure to be performed being reviewed, verification that the patient had received preoperative antibiotics if indicated, and verification of the correct surgical site. 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 Fire risk was assessed. Local was infiltrated into the soft tissues of the volar forearm and mid palm. An esmarch bandage was used to exsanguinate the limb and the tourniquet was inflated to 250mm Hg. A 1 cm transverse incision was made approximately 1 cm proximal to the distal volar wrist crease and just ulnar to the midline. Sharp dissection was carried down through the skin only and then blunt dissection was carried down to the level of the volar forearm fascia. A transverse incision was made through the fascia to acces the carpal canal. A dilator was placed within the carpal canal extending in line with the hook of the hamate. The camera was then introduced and the distal extent of the transverse carpal ligament was easily identified. The blade was deployed at this location and retracted about 1 cm. The camera was then advanced to ensure that all transverse fibers were adequately decompressed. The same stepwise sequence was performed to release the remaining fibers of the transverse carpal ligament from distal to proximal. At no time during the procedure did I visualize any neurovascular structures or tendons. The blade was retracted to the level of the skin to ensure that the entire transverse ligament as well as the most distal volar forearm fascia had been adequately decompressed. A synovial elevator was used to palpate the the carpal canal to ensure a thorough decompression had been achieved. The dermal layer was closed with a running non absorbable suture followed by steri strips. The remaining local was placed in the subcutaneous tissues of the mid palm for post operative pain control and additional hemostasis. The wound was dressed gauze, cast padding, and a loosely applied AJ bandage. The tourniquet was let down and the hand pinked up nicely with a brisk capillary refill in all 5 digits. Procedure Note: Wrist Cortisone Injection The LEFT wrist was identified as the injection site. I discussed the risks/benefits of a corticosteroid injection to include but not be limited to infection, subcutaneous fat atrophy, elevated blood glucose, local redness and pain. After discussion of the risk/benefits the patient elected to proceed. Under sterile conditions, the ulnocarpal joint was injected with a mixture of 1 mL of 1% Lidocaine and 1 mL of Celestone (6mg/mL). A sterile bandage was applied. Roberto tolerated the procedure well without complication. I advised Roberto of the expected response, possible reactions and the instructions for care of his wrist. Mr. Roberto De La Cruz was awakened from anesthesia having tolerated the procedure without apparent complication and was taken to the recovery room in stable condition. POST OPERATIVE PLAN PWB <5lbs until suture rem (more content not included)... [facility] 36on 10-13-[address] [place] [address] patient s employer has not received the [facility] paperwork. She asked that it be faxed to [phone]. Fax complete. [facility] [id number] 10-12-2024 [id number] Medication List as of October 12, 2024 2:29 PM You have not been prescribed any medications. Preparing for Your Surgical Procedure Day of Surgery Please arrive 2 hours prior to your scheduled surgery time Arrange for a responsible adult to drive you home after surgery Bring a photo ID and your insurance information Take a bath or shower using antibacterial soap such as Dial or Safeguard before coming to the hospital Do not shave the skin around your surgical site Wash your hair Wear loose fitting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 This is a new problem. The current episode started more than 1 week ago. The problem occurs constantly. The problem has been gradually worsening. Cough characteristics: productive and then non productive. There has been no fever. Associated symptoms include ear congestion, rhinorrhea and myalgias. Pertinent negatives include no chest pain, no chills, no sweats, no weight loss, no ear pain, no headaches, no sore throat, no shortness of breath, no wheezing and no eye redness. Treatments tried: Tylenol. The treatment provided no relief. He is not a smoker. His past medical history does not include bronchitis, pneumonia, bronchiectasis, COPD, emphysema or asthma. PAST MEDICAL HISTORY Diagnosis Date A-fib (HCC) 04/2020 PAST SURGICAL HISTORY Procedure Laterality Date COLONOSCOPY FLX DX W/COLLJ SPEC WHEN PFRMD 11/27/2016 Colonoscopy LAPAROSCOPIC CHOLECYSTECTOMY 06/20/2019 Dr. Gagan Richardson PAST SURGICAL HISTORY OF finger surgery x 2 TONSILLECTOMY PRIMARY/SECONDARY Tonsillectomy and adnoids VENOUS EXTREMITY UNILATERAL 10/08/2021 US neg DVT left lower leg ALLERGIES Iodinated Contrast Media MEDICATIONS sertraline (ZOLOFT) 50 mg tablet Take 1 tablet by mouth once daily. albuterol HFA (VENTOLIN HFA) 90 mcg/actuation inhaler Inhale 2 Puffs as instructed every 4 hours as needed for wheezing/shortness of breath. benzonatate (TESSALON PERLES) 100 mg capsule Take 1 capsule by mouth three times a day as needed for cough. doxycycline (VIBRA-TABS) 100 mg tablet Take 1 tablet by mouth two times a day for 7 days. benzonatate (TESSALON PERLES) 100 mg capsule Take 1 capsule by mouth three times a day as needed for cough. (Patient not taking: Reported on 05/29/2024) FAMILY HISTORY Problem Relation Age of Onset Alzheimer's Disease Mother Cancer Father brain tumor ,lung removed and kidney removed COPD Brother Osteoporosis Paternal Grandfather Alzheimer's Disease Sister Social History Tobacco Use Smoking status: Never Smokeless tobacco: Never Vaping Use Vaping Use: Never used Substance Use Topics Alcohol use: Yes Comment: occasional Drug use: No Review of Systems Constitutional: Positive for diaphoresis and fever. Negative for chills and weight loss. HENT: Positive for congestion and rhinorrhea. Negative for ear pain and sore throat. Eyes: Negative for discharge, redness and itching. Respiratory: Positive for cough. Negative for shortness of breath and wheezing. Cardiovascular: Negative for chest pain. Gastrointestinal: Negative for abdominal pain, diarrhea, nausea and vomiting. Musculoskeletal: Positive for myalgias. Skin: Negative for color change, pallor, rash and wound. Allergic/Immunologic: Negative for environmental allergies, food allergies and immunocompromised state. Neurological: Negative for dizziness, facial asymmetry, light-headedness, numbness and headaches. Hematological: Negative for adenopathy. Does not bruise/bleed easily. Psychiatric/Behavioral: Negative for agitation and behavioral problems. Objective BP 128/80 Pulse 65 Temp 36.6 ?C (97.8 ?F) Resp 21 Wt 115 kg (253 lb 8.5 oz) SpO2 97% BMI 34.38 kg/m? Physical Exam Vitals and nursing note reviewed. Constitutional: General: He is not in acute distress. Appearance: Normal appearance. He is not ill-appearing, toxic-appearing or diaphoretic. HENT: Head: Normocephalic and atraumatic. Comments: +ethmoid sinus pressure Right Ear: External ear normal. Left Ear: External ear normal. Nose: Nose normal. No congestion or rhinorrhea. Mouth/Throat: Mouth: Mucous membranes are moist. Pharynx: Oropharynx is clear. Posterior oropharyngeal erythema present. No oropharyngeal exudate. Eyes: General: Right eye: No discharge. Left eye: No discharge. Extraocular Movements: Extraocular movements intact. Conjunctiva/sclera: Conjunctivae normal. Pupils: Pupils are equal, round, and reactive to light. Cardi (more content not included)... Normal [facility] XR CHEST 2V FRONTAL/LATon XR CHEST 2V FRONTAL/LAT * * *Final Repor t* * * DATE OF EXAM: May 29 2024 2:26PM WOX [id number] - XR CHEST 2V FRONTAL/LAT / PROCEDURE REASON: Acute cough * * * * Physician Interpretation * * * * EXAMINATION: CHEST RADIOGRAPH (2 VIEW FRONTAL and LATERAL) CLINICAL HISTORY: Acute cough MQ: XC2_6 EXAM DATE/TIME: 05/29/2024 2:26 PM COMPARISON: Chest x-ray on 12/27/2023 RESULT: Lines, tubes, and devices: None. Lungs and pleura: Left basilar atelectasis/scarring is demonstrated. The remaining lungs are clear. No lung mass. No pleural effusion. No pneumothorax. Cardiomediastinal silhouette: Normal cardiomediastinal silhouette. Bones and soft tissues: Unremarkable. IMPRESSION: Left basilar atelectasis/scarring. Photoflash Powder Mixer: KEVIN Transcribe Date/Time: May 29 2024 2:27P Dictated by : AYUSH CHIRINOS MD This examination was interpreted and the report reviewed and electronically signed by: AYUSH CHIRINOS MD on May 29 2024 2:28PM EST [id number] Normal [facility] XR Chest PA and Lateralon IMPRESSION: Left basilar atelectasis/scarring. Photoflash Powder Mixer: PSCB Transcribe Date/Time: May 29 2024 2:27P Dictated by : AYUSH CHIRINOS MD This examination was interpreted and the report reviewed and electronically signed by: AYUSH CHIRINOS MD on May 29 2024 2:28PM EST DIVISION OF RADIOLOGY * * *Final Report* * * DATE OF EXAM: May 29 2024 2:26PM WOX [id number] - XR CHEST 2V FRONTAL/LAT / PROCEDURE REASON: Acute cough * * * * Physician Interpretation * * * * EXAMINATION: CHEST RADIOGRAPH (2 VIEW FRONTAL & LATERAL) CLINICAL HISTORY: Acute cough MQ: XC2_6 EXAM DATE/TIME: 05/29/2024 2:26 PM COMPARISON: Chest x-ray on 12/27/2023 RESULT: Lines, tubes, and devices: None. Lungs and pleura: Left basilar atelectasis/scarring is demonstrated. The remaining lungs are clear. No lung mass. No pleural effusion. No pneumothorax. Cardiomediastinal silhouette: Normal cardiomediastinal silhouette. Bones and soft tissues: Unremarkable. DIVISION OF RADIOLOGY Provider, [facility] - 05/29/2024 * * *Final Report* * * DATE OF EXAM: May 29 2024 2:26PM WOX [id number] - XR CHEST 2V FRONTAL/LAT / PROCEDURE REASON: Acute cough * * * * Physician Interpretation * * * * EXAMINATION: CHEST RADIOGRAPH (2 VIEW FRONTAL & LATERAL) CLINICAL HISTORY: Acute cough MQ: XC2_6 EXAM DATE/TIME: 05/29/2024 2:26 PM COMPARISON: Chest x-ray on 12/27/2023 RESULT: Lines, tubes, and devices: None. Lungs and pleura: Left basilar atelectasis/scarring is demonstrated. The remaining lungs are clear. No lung mass. No pleural effusion. No pneumothorax. Cardiomediastinal silhouette: Normal cardiomediastinal silhouette. Bones and soft tissues: Unremarkable. IMPRESSION IMPRESSION: Left basilar atelectasis/scarring. Photoflash Powder Mixer: PSCB Transcribe Date/Time: May 29 2024 2:27P Dictated by : AYUSH CHIRINOS MD This examination was interpreted and the report reviewed and electronically signed by: AYUSH CHIRINOS MD on May 29 2024 2:28PM EST [facility] Radiology Study observation (narrative) [facility] XR Chest PA and LateralOrder ed By: [facility] Provider on 05-29-2024 [facility] ROBERT[facility] DE LA CRUZ ([id number]) 1960 M Date Time Provider Department 05/08/24 [facility] During your visit today, we recorded the following information about you: Kenneth Beckett MD 05/08/2024 12:03 PM Signed Ldl is a little higher. Just watch cholesterol in the diet. Apurva Ambrocio RN 05/08/2024 12:38 PM Signed Pt called and is notified of providers results and instructions. Pt voices understanding. Apurva Ambrocio RN Allergies As of Date: 05/08/2024 Noted Allergy Reaction IODINATED CONTRAST MEDIA 04/13/2017 14 - Other: See Comments Comments: Kidney failure Date Reviewed: 04/01/2024 Reviewed by: Natividad Brown RN - Fully Assessed Reason for Visit: Results [95] Prescriptions as of 05/08/2024 - sertraline (ZOLOFT) 50 mg tablet Take 1 tablet by mouth once daily. - albuterol HFA (VENTOLIN HFA) 90 mcg/actuation inhaler Inhale 2 Puffs as instructed every 4 hours as needed for wheezing/shortness of breath. - benzonatate (TESSALON PERLES) 100 mg capsule Take 1 capsule by mouth three times a day as needed for cough. Problem List As Of Date 05/08/2024 Noted Resolved Encounter for screening colonoscopy [Z12.11] 11/27/2016 History of colonic polyps [Z86.010] 07/21/2018 Paroxysmal atrial fibrillation (HCC) [I48.0] 04/02/2021 Hyperlipidemia, mixed [E78.2] 08/09/2023 Hypertriglyceridemia [E78.1] 08/09/2023 Anxiety with depression [F41.8] 08/09/2023 Encounter Status:Closed by APURVA AMBROCIO on 05/08/24 Normal [facility] Lipid 1996 panelon Cholesterol [Mass/Vol] 189 mg/dL Normal <200 [facility] Comment on above: Order Comment: Speci men Type: BLOOD SPECIMENOrdering Facility: [facility] Address: [address] [place] [address] Result Comment: <200 mg/dL, Desirable 200-239 mg/dL, Borderline high >239 mg/dL, High Performed By: #### 2 4331-1 ####[facility] LABIA [id number] [place] [address] [place] Cholesterol in HDL [Mass/Vol] 44 mg/dL Normal >39 [facility] Comment on above: Order Comment: Speci men Type: BLOOD SPECIMENOrdering Facility: [facility] Address: [address] [place] [address] Result Comment: 40-5 9 mg/dL, Acceptable >59 mg/dL, High: Negative risk factor for coronary heart disease <40 mg/dL, Low: Positive risk factor for coronary heart disease Performed By: #### 2 4331-1 ####[facility] LABIA [id number] [place] [address] [place] Cholesterol in LDL [Mass/Vol] 117 mg/dL High <100 [facility] Comment on above: Order Comment: Speci men Type: BLOOD SPECIMENOrdering Facility: [facility] Address: [address] [place] [address] Result Comment: <100 mg/dL, Optimal 100-129 mg/dL, Near optimal/above optimal 130-159 mg/dL, Borderline high 160-189 mg/dL, High >189 mg/dL, Very high Secondary prevention optimal LDL Cholesterol levels are recommended to be < 70 mg/dL Performed By: #### 2 4331-1 ####[facility] LABCLIA [id number] [address] Cholesterol in LDL/Cholesterol in HDL [Mass ratio] 2.66 {ratio} High <2.54 [facility] Comment on above: Order Comment: Speci men Type: BLOOD SPECIMENOrdering Facility: [facility] Address: [address] [place] [address] Result Comment: Chapo joy: 1. National Cholesterol Education Program ATP III Guideline At-A-Glance Quick Desk Reference: National Heart, Lung, and Blood [place]. National Institutes of Health. 2001: NIH Publication No. 01-3305. 2. An International Atherosclerosis Society position paper: global recommendations for the management of dyslipidemia: executive summary, Atherosclerosis. 2014: 232(2):410-413. Performed By: #### 2 4331-1 ####[facility] LABCLIA [id number] [address] [place] Cholesterol in VLDL [Mass/Vol] 28 mg/dL Normal <30 [facility] Comment on above: Order Comment: Speci men Type: BLOOD SPECIMENOrdering Facility: [facility] Address: [address] [place] [address] Performed By: #### 2 4331-1 ####[facility] LABCLIA [id number] [place] [address] [place] Cholesterol non HDL [Mass/Vol] 145 mg/dL High <130 [facility] Comment on above: Order Comment: Speci men Type: BLOOD SPECIMENOrdering Facility: [facility] Address: [address] [place] [address] Result Comment: <130 mg/dL, Optimal 130-159 mg/dL, Near optimal/above optimal 160-189 mg/dL, Borderline high 190-219 mg/dL, High >219 mg/dL, Very high Secondary prevention optimal non HDL Cholesterol levels are recommended to be <100 mg/dL Performed By: #### 2 4331-1 ####[facility] LABCLIA [id number] [place] [address] [place] Cholesterol.total/Nilsa sterol in HDL [Mass ratio] 4.30 {ratio} Normal <5.10 [facility] Comment on above: Order Comment: Speci men Type: BLOOD SPECIMENOrdering Facility: [facility] Address: [address] [place] [address] Performed By: #### 2 4331-1 ####[facility] LABCLIA [id number] [address] STATES OF [facility] FASTING TIME 10 hrs Normal [facility] Comment on above: Order Comment: Speci men Type: BLOOD SPECIMENOrdering Facility: [facility] Address: [address] [place] [address] Performed By: #### 2 4331-1 ####[facility] LABCLIA [id number] [place] [address] [place] Triglyceride [Mass/Vol] 140 mg/dL Normal <150 [facility] Comment on above: Order Comment: Speci men Type: BLOOD SPECIMENOrdering Facility: [facility] Address: [address] [place] [address] Result Comment: <150 mg/dL, Normal 150-199 mg/dL, Borderline high 200-499 mg/dL, High >499 mg/dL, Very high Performed By: #### 2 4331-1 ####[facility] LABCLIA [id number] [place] [address] [place] ED NOTEon 04-01-2024 ED NOTE HNO ID: [id number] Author: NATIVIDAD BROWN RN Service: Emergency Medicine Author Type: Registered Nurse Type: ED Notes Filed: 04/01/2024 09:43 Note Text: Dressing applied by Doctor Kate Normal [facility] ED NOTE HNO ID: [id number] Author: NATIVIDAD BROWN RN Service: Emergency Medicine Author Type: Registered Nurse Type: ED Notes Filed: 04/01/2024 09:11 Note Text: Doctor at bedside suturing Normal [facility] ED PROV NOTEon 04-01-2024 ED PROV NOTE HNO ID: [id number] Author: TERRENCE COELLO MD Service: Emergency Medicine Author Type: Physician Type: ED Provider Notes Filed: 04/01/2024 11:14 Note Text: ED Provider Note Patient Name: Roberto De La Cruz : 1960 SERVICE DATE: 04/01/24 History Patient presents with: Head Injury Laceration This is a 63-year-old male states that he tripped in the bar and fell hitting his left ear. He states he broke his fall with his arm but did not injure his arm and did not hit his head hard it is just that he cut his ear on the ground slightly. He states his tetanus was 3 years ago. He denies headache, LOC, neck pain, significant ear pain. He denies that he is on anticoagulation states that he does not take any medications. He states he would not of come in but the ear just kept bleeding. PAST MEDICAL HISTORY Diagnosis Date A-fib (HCC) 04/2020 PAST SURGICAL HISTORY Procedure Laterality Date COLONOSCOPY FLX DX W/COLLJ SPEC WHEN PFRMD 11/27/2016 Colonoscopy LAPAROSCOPIC CHOLECYSTECTOMY 06/20/2019 Dr. Gagan Richardson PAST SURGICAL HISTORY OF finger surgery x 2 TONSILLECTOMY PRIMARY/SECONDARY Tonsillectomy and adnoids VENOUS EXTREMITY UNILATERAL 10/08/2021 US neg DVT left lower leg FAMILY HISTORY Problem Relation Age of Onset Alzheimer's Disease Mother Cancer Father brain tumor ,lung removed and kidney removed COPD Brother Osteoporosis Paternal Grandfather Alzheimer's Disease Sister Social History Tobacco Use Smoking status: Never Smokeless tobacco: Never Vaping Use Vaping Use: Never used Substance and Sexual Activity Alcohol use: Yes Comment: occasional Drug use: No Sexual activity: Not on file ALLERGIES Allergen Reactions Iodinated Contrast * Other: See Comments Kidney failure Review of Systems Physical Exam Vitals BP Pulse Temp Temp src Resp SpO2 Weight Height 04/01/24 0830 04/01/24 0805 04/01/24 0805 -- 04/01/24 0805 04/01/24 0805 04/01/24 0805 04/01/24 0805 140/86 59 36.3 ?C (97.3 ?F) 18 96 % 114.3 kg (252 lb) 1.829 m (6') Physical Exam HENT: Head: Normocephalic. Right Ear: Tympanic membrane, ear canal and external ear normal. Left Ear: Tympanic membrane and ear canal normal. Ears: Comments: Left ear has approximately 1.25 cm laceration through the superficial skin, not into the cartilage and not through and through. There is mild associated perichondral hematoma with a laceration but there is not diffuse or moderate or large amount of perichondral hematoma. Mastoid is nontender Nose: Nose normal. Mouth/Throat: Comments: Atraumatic no bite malocclusion no facial bone tenderness Eyes: Extraocular Movements: Extraocular movements intact. Pupils: Pupils are equal, round, and reactive to light. Cardiovascular: Rate and Rhythm: Regular rhythm. Bradycardia present. Pulses: Normal pulses. Pulmonary: Effort: Pulmonary effort is normal. Breath sounds: Normal breath sounds. Chest: Chest wall: No tenderness. Abdominal: Palpations: Abdomen is soft. Tenderness: There is no abdominal tenderness. There is no right CVA tenderness or left CVA tenderness. Genitourinary: Comments: Pelvis stable nontender Musculoskeletal: General: No tenderness or signs of injury. Normal range of motion. Cervical back: Normal range of motion. No tenderness. Skin: General: Skin is warm and dry. Capillary Refill: Capillary refill takes less than 2 seconds. Comments: See left ear exam Neurological: Mental Status: He is alert. Cranial Nerves: No cranial nerve deficit. Sensory: No sensory deficit. Motor: No weakness. Gait: Gait normal. Psychiatric: Mood and Affect: Mood normal. Diagnostic Testing ED Labs Ordered and Reviewed - No data to display LAC REPAIR Date/Time: 04/01/2024 9:11 AM Performed by: Terrence Coello MD Authorized by: Terrence Coello MD Risks discussed: Infection, need for additional repair, poor cosmetic result, poor wound healing and pain Alternatives discussed: Observation, no treatment and referral Anesthesia (see MAR for exact dosages): Anesthesia method: Local infiltration Local anesthetic: Lidocaine 1% w/o epi Laceration details: Location: Ear Ear location: L ear Length (cm): 1.3 Repair type: Repair type: Simple Pre-procedure details: Preparation: Patient was prepped and draped in usual sterile fashion Exploration: Hemostasis achieved with: Direct pressure Wound exploration: entire depth of wound probed and visualized Wound extent: no foreign body Contaminated: no Treatment: Area cleansed with: Betadine Irrigation solution: Sterile water Irrigation volume: 200 mL Irrigation method: Syringe Visualized foreign bodies/material removed: no Skin repair: Repair method: Sutures Suture size: 5-0 Suture material: Fast-absorbing gut Suture technique: Running Approximation: Approximation: Close Post-procedure details: (more content not included)... Normal [facility] XR Chest PA and Lateralon IMPRESSION: No acute radiographic abnormality. Photoflash Powder Mixer: [employer] Transcribe Date/Time: Dec 27 2023 7:02P Dictated by : LAITH LARA MD This examination was interpreted and the report reviewed and electronically signed by: LAITH LARA MD on Dec 27 2023 7:05PM [facility] DIVISION OF RADIOLOGY * * *Final Report* * * DATE OF EXAM: Dec 27 2023 6:04PM WOX [id number] - XR CHEST 2V FRONTAL/LAT / PROCEDURE REASON: Bronchitis * * * * Physician Interpretation * * * * EXAMINATION: CHEST RADIOGRAPH (2 VIEW FRONTAL & LATERAL) CLINICAL HISTORY: Bronchitis MQ: XC2_6 EXAM DATE/TIME: 12/27/2023 6:04 PM COMPARISON: 12/20/2023 RESULT: Lines, tubes, and devices: None. Lungs and pleura: No consolidation. No lung mass. No pleural effusion. No pneumothorax. Cardiomediastinal silhouette: Normal cardiomediastinal silhouette. Bones and soft tissues: No acute bony abnormality DIVISION OF RADIOLOGY Provider, Katie Ricki [facility] - 12/27/2023 * * *Final Report* * * DATE OF EXAM: Dec 27 2023 6:04PM WOX 5291 - XR CHEST 2V FRONTAL/LAT / PROCEDURE REASON: Bronchitis * * * * Physician Interpretation * * * * EXAMINATION: CHEST RADIOGRAPH (2 VIEW FRONTAL & LATERAL) CLINICAL HISTORY: Bronchitis MQ: XC2_6 EXAM DATE/TIME: 12/27/2023 6:04 PM COMPARISON: 12/20/2023 RESULT: Lines, tubes, and devices: None. Lungs and pleura: No consolidation. No lung mass. No pleural effusion. No pneumothorax. Cardiomediastinal silhouette: Normal cardiomediastinal silhouette. Bones and soft tissues: No acute bony abnormality IMPRESSION IMPRESSION: No acute radiographic abnormality. Photoflash Powder Mixer: [facility] Transcribe Date/Time: Dec 27 2023 7:02P Dictated by : LAITH LARA MD This examination was interpreted and the report reviewed and electronically signed by: LAITH LARA MD on Dec 27 2023 7:05PM [facility] Radiology Study [facility]narrative[facility] X[facility] Chest PA and LateralOrder ed By: [facility] Provider on 12-27-2023 [facility] XR Chest 2 Viewson [facility] XR Chest PA and Lateralon IMPRESSION: No acute radiographic abnormality. Photoflash Powder Mixer: [facility] Transcribe Date/Time: Dec 20 2023 9:39A Dictated by : ASHKAN GAMBOA MD This examination was interpreted and the report reviewed and electronically signed by: ASHKAN GAMBOA MD on Dec 20 2023 9:39AM [facility] DIVISION OF RADIOLOGY * * *Final Report* * * DATE OF EXAM: Dec 20 2023 9:38AM WOX 5291 - XR CHEST 2V FRONTAL/LAT / PROCEDURE REASON: Acute cough * * * * Physician Interpretation * * * * EXAMINATION: CHEST RADIOGRAPH (2 VIEW FRONTAL & LATERAL) CLINICAL HISTORY: Acute cough MQ: XC2_6 EXAM DATE/TIME: 12/20/2023 9:38 AM COMPARISON: Chest x-ray dated December 16, 2022 RESULT: Lines, tubes, and devices: None. Lungs and pleura: No consolidation. No lung mass. No pleural effusion. No pneumothorax. Cardiomediastinal silhouette: Normal cardiomediastinal silhouette. Bones and soft tissues: Unremarkable. DIVISION OF RADIOLOGY Provider, Jasmine fuchs [facility] - 12/20/2023 * * *Final Report* * * DATE OF EXAM: Dec 20 2023 9:38AM WOX 5291 - XR CHEST 2V FRONTAL/LAT / PROCEDURE REASON: Acute cough * * * * Physician Interpretation * * * * EXAMINATION: CHEST RADIOGRAPH (2 VIEW FRONTAL & LATERAL) CLINICAL HISTORY: Acute cough MQ: XC2_6 EXAM DATE/TIME: 12/20/2023 9:38 AM COMPARISON: Chest x-ray dated December 16, 2022 RESULT: Lines, tubes, and devices: None. Lungs and pleura: No consolidation. No lung mass. No pleural effusion. No pneumothorax. Cardiomediastinal silhouette: Normal cardiomediastinal silhouette. Bones and soft tissues: Unremarkable. IMPRESSION IMPRESSION: No acute radiographic abnormality. Photoflash Powder Mixer[facility] Transcribe Date/Time: Dec 20 2023 9:39A Dictated by : ASHKAN GAMBOA MD This examination was interpreted and the report reviewed and electronically signed by: ASHKAN GAMBOA MD on Dec 20 2023 9:39AM [facility] Radiology Study observation (narrative) [facility] XR Chest PA and LateralOrder ed By: [facility] Provider on 12-20-2023 [facility] XR Shoulder - left 3 Viewson 12-02-2023 IMPRESSION: No acute pathology. Photoflash Powder Mixer: [facility] Transcribe Date/Time: Dec 02 2023 2:07P Dictated by : JOSE KENDALL MD This examination was interpreted and the report reviewed and electronically signed by: JOSE KENDALL MD on Dec 02 2023 2:08PM [facility] DIVISION OF RADIOLOGY * * *Final Report* * * DATE OF EXAM: Dec 01 2023 2:21PM WOX 5252 - XR SHLDR >/=3V AP/JEFFREY AP/OTHR LT / PROCEDURE REASON: Acute pain of left shoulder * * * * Physician Interpretation * * * * EXAM(s): XR SHLDR >/=3V AP/JEFFREY AP/OTHR LT EXAM DATE/TIME: 12/01/2023 2:21 PM HISTORY: 62 years old Clinical information: Acute pain of left shoulder Lateral left shoulder pain x several months without known injury TECHNIQUE: Images: XR SHLDR >/=3V AP/JEFFREY AP/OTHR LT Comparison: None. RESULT: Findings: Bone density appears well-preserved. No fractures or dislocations are seen. Glenohumeral joint space is maintained without degenerative change. Acromioclavicular joint space is maintained without degenerative change. The humeral head is not high riding. DIVISION OF RADIOLOGY Provider, [facility] - 12/02/2023 * * *Final Report* * * DATE OF EXAM: Dec 01 2023 2:21PM WOX 5252 - XR SHLDR >/=3V AP/JEFFREY AP/OTHR LT / PROCEDURE REASON: Acute pain of left shoulder * * * * Physician Interpretation * * * * EXAM(s): XR SHLDR >/=3V AP/JEFFREY AP/OTHR LT EXAM DATE/TIME: 12/01/2023 2:21 PM HISTORY: 62 years old Clinical information: Acute pain of left shoulder Lateral left shoulder pain x several months without known injury TECHNIQUE: Images: XR SHLDR >/=3V AP/JEFFREY AP/OTHR LT Comparison: None. RESULT: Findings: Bone density appears well-preserved. No fractures or dislocations are seen. Glenohumeral joint space is maintained without degenerative change. Acromioclavicular joint space is maintained without degenerative change. The humeral head is not high riding. IMPRESSION IMPRESSION: No acute pathology. Photoflash Powder Mixer: PSCB Transcribe Date/Time: Dec 02 2023 2:07P Dictated by : JOSE KENDALL MD This examination was interpreted and the report reviewed and electronically signed by: JOSE KENDALL MD on Dec 02 2023 2:08PM [facility] XR Shoulder - left 3 ViewsOr dered By: [facility] Provider on 12-02-2023 [facility] XR Shoulder - left 3 Viewson 12-01-2023 Radiology Study observation (narrative) [facility] No Panel Informationon 07-19 Radiology Study observation (narrative) [facility] XR Finger - left AP and Late ral and obliqueon 07-19-2023 IMPRESSION: Degenerative changes in the second digit. No acute fractures identified. Photoflash Powder Mixer: KEVIN Transcribe Date/Time: Jul 19 2023 12:05P Dictated by : AYUSH CHIRINOS MD This examination was interpreted and the report reviewed and electronically signed by: AYUSH CHIRINOS MD on Jul 19 2023 12:09PM [facility] DIVISION OF RADIOLOGY * * *Final Report* * * DATE OF EXAM: Jul 19 2023 12:04PM WOX [id number] - XR DIGIT 3V FRONTAL/LAT/OBL LT / PROCEDURE REASON: Finger pain, left * * * * Physician Interpretation * * * * EXAM TITLE: XR DIGIT 3V FRONTAL/LAT/OBL LT EXAM DATE/TIME: 07/19/2023 12:04 PM COMPARISON: X-ray finger on 08/23/2019 CLINICAL INDICATION/HISTORY: Finger pain. TECHNIQUE: PA, lateral and oblique views of the second digit of the left hand are presented. FINDINGS: No acute fractures or subluxations are noted. Tiny cystic components in the phalanxes and metacarpal bone noted, likely degenerative. The joint spaces are well preserved. The mineralization of the bones is normal. There is no significant soft tissue swelling. DIVISION OF RADIOLOGY Provider, [facility] Rick[facility] - 07/19/2023 * * *Final Report* * * DATE OF EXAM: Jul 19 2023 12:04PM WOX [id number] - XR DIGIT 3V FRONTAL/LAT/OBL LT / PROCEDURE REASON: Finger pain, left * * * * Physician Interpretation * * * * EXAM TITLE: XR DIGIT 3V FRONTAL/LAT/OBL LT EXAM DATE/TIME: 07/19/2023 12:04 PM COMPARISON: X-ray finger on 08/23/2019 CLINICAL INDICATION/HISTORY: Finger pain. TECHNIQUE: PA, lateral and oblique views of the second digit of the left hand are presented. FINDINGS: No acute fractures or subluxations are noted. Tiny cystic components in the phalanxes and metacarpal bone noted, likely degenerative. The joint spaces are well preserved. The mineralization of the bones is normal. There is no significant soft tissue swelling. IMPRESSION IMPRESSION: Degenerative changes in the second digit. No acute fractures identified. Photoflash Powder Mixer: KEVIN Transcribe Date/Time: Jul 19 2023 12:05P Dictated by : AYUSH CHIRINOS MD This examination was interpreted and the report reviewed and electronically signed by: AYUSH CHIRINOS MD on Jul 19 2023 12:09PM EST [facility] XR Tibia and Fibula - left A P and Lateralon 07-19-2023 IMPRESSION: No radiographic evidence of acute osseous abnormality Photoflash Powder Mixer: [facility] Transcribe Date/Time: Jul 19 2023 12:06P Dictated by : ASHKAN GAMBOA MD This examination was interpreted and the report reviewed and electronically signed by: ASHKAN GAMBOA MD on Jul 19 2023 12:12PM EST DIVISION OF RADIOLOGY * * *Final Report* * * DATE OF EXAM: Jul 19 2023 12:04PM WOX 5265 - XR TIBIA FIBULA 2V AP/LAT LT / PROCEDURE REASON: Left leg swelling * * * * Physician Interpretation * * * * TITLE: XR TIBIA FIBULA 2V AP/LAT LT CLINICAL INDICATION: Leg swelling TECHNIQUE: Frontal and lateral radiographs of the left tibia/fibula COMPARISON: None FINDINGS: No acute fracture or dislocation identified. No cortical destruction or periostitis to suggest radiographic evidence of osteomyelitis. No radiopaque foreign body. DIVISION OF RADIOLOGY Provider, [facility] - 07/19/2023 * * *Final Report* * * DATE OF EXAM: Jul 19 2023 12:04PM WOX 5265 - XR TIBIA FIBULA 2V AP/LAT LT / PROCEDURE REASON: Left leg swelling * * * * Physician Interpretation * * * * TITLE: XR TIBIA FIBULA 2V AP/LAT LT CLINICAL INDICATION: Leg swelling TECHNIQUE: Frontal and lateral radiographs of the left tibia/fibula COMPARISON: None FINDINGS: No acute fracture or dislocation identified. No cortical destruction or periostitis to suggest radiographic evidence of osteomyelitis. No radiopaque foreign body. IMPRESSION IMPRESSION: No radiographic evidence of acute osseous abnormality Photoflash Powder Mixer: [facility] Transcribe Date/Time: Jul 19 2023 12:06P Dictated by : ASHKAN GAMBOA MD This examination was interpreted and the report reviewed and electronically signed by: ASHKAN GAMBOA MD on Jul 19 2023 12:12PM EST [facility] XR Tibia and Fibula - left A P and LateralOrdered By: [facility] Provider on 07-19-2023 [facility] Influenza virus A and B RNA and SARS-CoV-2 (COVID-19) N gene panel STORM+probe (Resp)on 07-08-2023 FLUAV RNA STORM+probe Ql (Unsp spec) Not detected Not Detected [facility] FLUBV RNA STORM+probe Ql (Unsp spec) Not detected Not Detected [facility] SARS-CoV-2 (COVID-19) RNA STORM+probe Ql (Resp) Not detected See comment [facility] STREP A MOLECULAR (POC)on Procedural Control Valid [facility] Strep A (POCT) Negative Negative [facility] XR Chest PA and Lateralon IMPRESSION: Left basilar atelectasis and/or scarring. Photoflash Powder Mixer: KEVIN Transcribe Date/Time: Dec 21 2022 3:44P Dictated by : AYUSH CHIRINOS MD This examination was interpreted and the report reviewed and electronically signed by: AYUSH CHIRINOS MD on Dec 21 2022 3:46PM [facility] DIVISION OF RADIOLOGY * * *Final Report* * * DATE OF EXAM: Dec 16 2022 4:16PM WOX 5291 - XR CHEST 2V FRONTAL/LAT / PROCEDURE REASON: SOB (shortness of breath) * * * * Physician Interpretation * * * * EXAMINATION: CHEST RADIOGRAPH (2 VIEW FRONTAL & LATERAL) CLINICAL HISTORY: SOB (shortness of breath) MQ: XC2_6 EXAM DATE/TIME: 12/16/2022 4:16 PM COMPARISON: Chest x-ray on 01/08/2022 RESULT: Lines, tubes, and devices: None. Lungs and pleura: Left basilar atelectasis and/or scarring noted. The lungs are otherwise clear of consolidations. No lung mass. No pleural effusion. No pneumothorax. Cardiomediastinal silhouette: Normal cardiomediastinal silhouette. Bones and soft tissues: Unremarkable. [facility] * * *Final Report* * * DATE OF EXAM: Dec 16 2022 4:16PM WOX 5291 - XR CHEST 2V FRONTAL/LAT / PROCEDURE REASON: SOB (shortness of breath) * * * * Physician Interpretation * * * * EXAMINATION: CHEST RADIOGRAPH (2 VIEW FRONTAL & LATERAL) CLINICAL HISTORY: SOB (shortness of breath) MQ: XC2_6 EXAM DATE/TIME: 12/16/2022 4:16 PM COMPARISON: Chest x-ray on 01/08/2022 RESULT: Lines, tubes, and devices: None. Lungs and pleura: Left basilar atelectasis and/or scarring noted. The lungs are otherwise clear of consolidations. No lung mass. No pleural effusion. No pneumothorax. Cardiomediastinal silhouette: Normal cardiomediastinal silhouette. Bones and soft tissues: Unremarkable. IMPRESSION IMPRESSION: Left basilar atelectasis and/or scarring. Photoflash Powder Mixer: KEVIN Transcribe Date/Time: Dec 21 2022 3:44P Dictated by : AYUSH CHIRINOS MD This examination was interpreted and the report reviewed and electronically signed by: AYUSH CHIRINOS MD on Dec 21 2022 3:46PM EST [facility] XR Chest PA and LateralOrder ed By: [facility] Provider on 12-21-2022 [facility] XR Chest PA and Lateralon Radiology Study observation (narrative) [facility] XR FOOT GENERAL 3V AP/LAT/OB L LEFTon 08-11-2022 [facility] XR Foot - left AP and Latera l and obliqueon 08-11-2022 IMPRESSION: Negative left foot. Photoflash Powder Mixer: [facility] Transcribe Date/Time: Aug 11 2022 7:40P Dictated by : CARLINE ROBERSON MD This examination was interpreted and the report reviewed and electronically signed by: CARLINE ROBERSON MD on Aug 11 2022 7:42PM [facility] DIVISION OF RADIOLOGY * * *Final Report* * * DATE OF EXAM: Aug 11 2022 7:22PM WOX 5336 - XR FOOT 3V AP/LAT/OBL LT / PROCEDURE REASON: Foot pain, left * * * * Physician Interpretation * * * * LEFT FOOT X-RAY SERIES CLINICAL HISTORY: Dorsal forefoot and midfoot pain x2 days, no injury TECHNIQUE: AP, lateral and oblique views. COMPARISON: 04/02/2021 RESULT: No fracture, destructive changes or periosteal reaction. Joint spaces and articular surfaces are preserved. Incidental note of bipartite pisiform bones underlying the first metatarsal head. DIVISION OF RADIOLOGY Provider, [facility] - 08/11/2022 * * *Final Report* * * DATE OF EXAM: Aug 11 2022 7:22PM WOX 5336 - XR FOOT 3V AP/LAT/OBL LT / PROCEDURE REASON: Foot pain, left * * * * Physician Interpretation * * * * LEFT FOOT X-RAY SERIES CLINICAL HISTORY: Dorsal forefoot and midfoot pain x2 days, no injury TECHNIQUE: AP, lateral and oblique views. COMPARISON: 04/02/2021 RESULT: No fracture, destructive changes or periosteal reaction. Joint spaces and articular surfaces are preserved. Incidental note of bipartite pisiform bones underlying the first metatarsal head. IMPRESSION IMPRESSION: Negative left foot. Photoflash Powder Mixer: KEVIN Transcribe Date/Time: Aug 11 2022 7:40P Dictated by : CARLINE ROBERSON MD This examination was interpreted and the report reviewed and electronically signed by: CARLINE ROBERSON MD on Aug 11 2022 7:42PM [facility] Radiology Study observation (narrative) [facility] XR Foot - left AP and Latera l and obliqueOrdered By: Cc Provider on 08-11-2022 [facility] XR Chest PA and Lateralon IMPRESSION: Interval improvement of mild hazy or patchy opacities overlying the left upper lung. Photoflash Powder Mixer: KEVIN Transcribe Date/Time: Jan 08 2022 11:42A Dictated by : AYUSH CHIRINOS MD This examination was interpreted and the report reviewed and electronically signed by: AYUSH CHIRINOS MD on Jan 08 2022 11:45AM [facility] DIVISION OF RADIOLOGY * * *Final Report* * * DATE OF EXAM: Jan 08 2022 11:28AM WOX 5291 - XR CHEST 2V FRONTAL/LAT / PROCEDURE REASON: multiple diagnoses * * * * Physician Interpretation * * * * EXAMINATION: CHEST RADIOGRAPH (2 VIEW FRONTAL & LATERAL) CLINICAL HISTORY: Cough Pneumonia due to COVID-19 virus MQ: XC2_6 EXAM DATE/TIME: 01/08/2022 11:28 AM COMPARISON: Chest x-ray on 12/10/2021. RESULT: Lines, tubes, and devices: None. Lungs and pleura: Interval improvement of mild hazy or patchy opacities overlying the left upper lung. No new consolidations identified. No masses. No pleural effusions or pneumothorax. Cardiomediastinal silhouette: Stable cardiac silhouette and mediastinal contour. Bones and soft tissues: Stable. DIVISION OF RADIOLOGY Provider, [facility] - 01/08/2022 * * *Final Report* * * DATE OF EXAM: Jan 08 2022 11:28AM WOX 5291 - XR CHEST 2V FRONTAL/LAT / PROCEDURE REASON: multiple diagnoses * * * * Physician Interpretation * * * * EXAMINATION: CHEST RADIOGRAPH (2 VIEW FRONTAL & LATERAL) CLINICAL HISTORY: Cough Pneumonia due to COVID-19 virus MQ: XC2_6 EXAM DATE/TIME: 01/08/2022 11:28 AM COMPARISON: Chest x-ray on 12/10/2021. RESULT: Lines, tubes, and devices: None. Lungs and pleura: Interval improvement of mild hazy or patchy opacities overlying the left upper lung. No new consolidations identified. No masses. No pleural effusions or pneumothorax. Cardiomediastinal silhouette: Stable cardiac silhouette and mediastinal contour. Bones and soft tissues: Stable. IMPRESSION IMPRESSION: Interval improvement of mild hazy or patchy opacities overlying the left upper lung. Photoflash Powder Mixer: KEVIN Transcribe Date/Time: Jan 08 2022 11:42A Dictated by : AYUSH CHIRINOS MD This examination was interpreted and the report reviewed and electronically signed by: AYUSH CHIRINOS MD on Jan 08 2022 11:45AM [facility] Radiology Study observation (narrative) [facility] XR Chest PA and LateralOrder ed By: Ccf Provider on 01-08-2022 [facility] XR Chest PA and Lateralon IMPRESSION: Overall findings unchanged. Photoflash Powder Mixer: KEVIN Transcribe Date/Time: Dec 10 2021 9:55A Dictated by : AYUSH CHIRINOS MD This examination was interpreted and the report reviewed and electronically signed by: AYUSH CHIRINOS MD on Dec 10 2021 9:56AM [facility] DIVISION OF RADIOLOGY * * *Final Report* * * DATE OF EXAM: Dec 10 2021 9:51AM WOX 5291 - XR CHEST 2V FRONTAL/LAT / PROCEDURE REASON: SOB (shortness of breath) * * * * Physician Interpretation * * * * EXAMINATION: CHEST RADIOGRAPH (2 VIEW FRONTAL & LATERAL) CLINICAL HISTORY: SOB (shortness of breath) MQ: XC2_6 EXAM DATE/TIME: 12/10/2021 9:51 AM COMPARISON: Chest x-ray on 12/01/2021. RESULT: Lines, tubes, and devices: None. Lungs and pleura: Mild hazy or patchy opacities again visualized overlying the left upper lung. Stable left basilar atelectases/scarring. The right lung is clear. No mass lesions seen. No pleural effusions or pneumothorax. Cardiomediastinal silhouette: Normal cardiomediastinal silhouette. Bones and soft tissues: Unremarkable. DIVISION OF RADIOLOGY Provider, [facility] - 12/10/2021 * * *Final Report* * * DATE OF EXAM: Dec 10 2021 9:51AM WOX 5291 - XR CHEST 2V FRONTAL/LAT / PROCEDURE REASON: SOB (shortness of breath) * * * * Physician Interpretation * * * * EXAMINATION: CHEST RADIOGRAPH (2 VIEW FRONTAL & LATERAL) CLINICAL HISTORY: SOB (shortness of breath) MQ: XC2_6 EXAM DATE/TIME: 12/10/2021 9:51 AM COMPARISON: Chest x-ray on 12/01/2021. RESULT: Lines, tubes, and devices: None. Lungs and pleura: Mild hazy or patchy opacities again visualized overlying the left upper lung. Stable left basilar atelectases/scarring. The right lung is clear. No mass lesions seen. No pleural effusions or pneumothorax. Cardiomediastinal silhouette: Normal cardiomediastinal silhouette. Bones and soft tissues: Unremarkable. IMPRESSION IMPRESSION: Overall findings unchanged. Photoflash Powder Mixer: PSCB Transcribe Date/Time: Dec 10 2021 9:55A Dictated by : AYUSH CHIRINOS MD This examination was interpreted and the report reviewed and electronically signed by: AYUSH CHIRINOS MD on Dec 10 2021 9:56AM [facility] Radiology Study observation (narrative) Corrie Mathur XR Chest PA and LateralOrder ed By: Cc Provider on 12-10-2021 [facility] XR Chest PA and Lateralon IMPRESSION: Question mild hazy opacities in the periphery of the left midlung zone which could reflect early manifestations of viral pneumonia given provided history. Photoflash Powder Mixer: KEVIN Transcribe Date/Time: Dec 01 2021 11:20A Dictated by : ASHKAN GAMBOA MD This examination was interpreted and the report reviewed and electronically signed by: ASHKAN GAMBOA MD on Dec 01 2021 11:22AM [facility] DIVISION OF RADIOLOGY * * *Final Report* * * DATE OF EXAM: Dec 01 2021 11:10AM WOX 5291 - XR CHEST 2V FRONTAL/LAT / PROCEDURE REASON: COVID-19 * * * * Physician Interpretation * * * * EXAMINATION: CHEST RADIOGRAPH (2 VIEW FRONTAL & LATERAL) CLINICAL HISTORY: COVID- MQ: XC2_6 EXAM DATE/TIME: 12/01/2021 11:10 AM COMPARISON: Chest x-ray dated May 15, 2019 RESULT: Lines, tubes, and devices: None. Lungs and pleura: Questioned mild hazy opacities in the periphery of the left midlung zone. No pleural effusion or pneumothorax. Cardiomediastinal silhouette: Normal cardiomediastinal silhouette. Bones and soft tissues: No acute abnormality. DIVISION OF RADIOLOGY Provider, [facility] - 12/01/2021 * * *Final Report* * * DATE OF EXAM: Dec 01 2021 11:10AM WOX 5291 - XR CHEST 2V FRONTAL/LAT / PROCEDURE REASON: COVID-19 * * * * Physician Interpretation * * * * EXAMINATION: CHEST RADIOGRAPH (2 VIEW FRONTAL & LATERAL) CLINICAL HISTORY: COVID-19 MQ: XC2_6 EXAM DATE/TIME: 12/01/2021 11:10 AM COMPARISON: Chest x-ray dated May 15, 2019 RESULT: Lines, tubes, and devices: None. Lungs and pleura: Questioned mild hazy opacities in the periphery of the left midlung zone. No pleural effusion or pneumothorax. Cardiomediastinal silhouette: Normal cardiomediastinal silhouette. Bones and soft tissues: No acute abnormality. IMPRESSION IMPRESSION: Question mild hazy opacities in the periphery of the left midlung zone which could reflect early manifestations of viral pneumonia given provided history. Photoflash Powder Mixer: KEVIN Transcribe Date/Time: Dec 01 2021 11:20A Dictated by : ASHKAN GAMBOA MD This examination was interpreted and the report reviewed and electronically signed by: ASHKAN GAMBOA MD on Dec 01 2021 11:22AM EST [facility] Radiology Study observation (narrative) [facility] XR Chest PA and LateralOrder ed By: Ccf Provider on 12-01-2021 [facility] XR HAND LEFT 3+ VIEWS (STAND LEON)on 06-05-2021 XR HAND LEFT 3+ VIEWS (STANDARD) EXAMINATION: XR HAND LEFT 3+ VIEWS (STANDARD) 06/05/2021 11:57 am HISTORY: ORDERING SYSTEM PROVIDED HISTORY: Injury, TECHNOLOGIST PROVIDED HISTORY: Injury/Trauma Reason for exam: pain Cancer History: u Surgery, RadiationHistory: u Encounter Type: Initial Mechanism of injury: fell a week ago ORDERING SYSTEM PROVIDED DIAGNOSIS CODES: T14.90XA Injury COMPARISON: 05/29/2021 FINDINGS: There is no acute displaced fracture or dislocation identified. Chronic ununited ulnar styloid fracture. Degenerative changes of the distal radioulnar joint are present. Soft tissues are unremarkable. IMPRESSION: Negative radiographic evaluation for fracture. Workstation ID: [id number] Dictated by: RITCHIE MONCADA on WedJun 05, 2021 2:26:42 PM EDT Transcribed by: RITCHIE MONCADA on WedJun 05, 2021 2:26:42 PM EDT Finalized by: RITCHIE MONCADA on WedJun 05, 2021 2:26:[address] [facility] Comment on above: Order Comment: WH le ft Injury/Trauma or Illness?:Injury/Trauma How long have you had these symptoms (acute/chronic)?:Acute Reason for exam?:pain History of cancer?:u Surgeries, chemotherapy, or radiation?:u Type of Exam?:Initial Mechanism of injury?:fell a week ago XR HAND LEFT 3+ VIEWS (STAND LEON)on 05-29-2021 XR HAND LEFT 3+ VIEWS (STANDARD) EXAMINATION: XR HAND LEFT 3+ VIEWS (STANDARD) 05/29/2021 10:02 am HISTORY: ORDERING SYSTEM PROVIDED HISTORY: injury , TECHNOLOGIST PROVIDED HISTORY: Injury/Trauma Reason for exam: pain Cancer History: u Surgery, RadiationHistory: u Encounter Type: Initial Mechanism of injury: fall ORDERING SYSTEM PROVIDED DIAGNOSIS CODES: T14.90XA Injury COMPARISON: None FINDINGS: No acute fracture or dislocation identified. There is a chronic appearing ununited ulnar styloid fracture. Soft tissues are unremarkable. IMPRESSION: Negative radiographic evaluation for fracture. Workstation ID: [id number] Dictated by: RITCHIE MONCADA on WedMay 29, 2021 1:40:18 PM EDT Transcribed by: RITCHIE MONCADA on WedMay 29, 2021 1:40:18 PM EDT Finalized by: RITCHIE MONCADA on WedMay 29, 2021 1:40:[address] [facility] Comment on above: Order Comment: WH Injury/Trauma or Illness?:Injury/Trauma How long have you had these symptoms (acute/chronic)?:Acute Reason for exam?:pain History of cancer?:u Surgeries, chemotherapy, or radiation?:u Type of Exam?:Initial Mechanism of injury?:fall XR Foot - left AP and Latera l and obliqueon 04-02-2021 IMPRESSION: Mild first MTP osteoarthrosis. No acute osseous abnormality identified. Photoflash Powder Mixer: PSCB Transcribe Date/Time: Apr 02 2021 5:44P Dictated by : TERRENCE LIMON MD This examination was interpreted and the report reviewed and electronically signed by: TERRENCE LIMON MD on Apr 02 2021 5:46PM [facility] DIVISION OF RADIOLOGY * * *Final Report* * * DATE OF EXAM: Apr 02 2021 5:01PM WOX 5336 - XR FOOT 3V AP/LAT/OBL LT / PROCEDURE REASON: Foot pain, left * * * * Physician Interpretation * * * * Left foot radiographs HISTORY: 60 years old Clinical information: Foot pain, left Pt. states lateral Lt foot pain for 1.5 months. No injury. TECHNIQUE: Images: XR FOOT 3V AP/LAT/OBL LT Comparison: None. RESULT: Findings: Bipartite medial and lateral sesamoid bones of the great toe. Minimal osteophyte formation involving the base of the proximal phalanx great toe. No fracture or dislocation. No soft tissue abnormality identified. DIVISION OF RADIOLOGY Provider, Jasmine fuchs [facility] - 04/02/2021 * * *Final Report* * * DATE OF EXAM: Apr 02 2021 5:01PM WOX 5336 - XR FOOT 3V AP/LAT/OBL LT / PROCEDURE REASON: Foot pain, left * * * * Physician Interpretation * * * * Left foot radiographs HISTORY: 60 years old Clinical information: Foot pain, left Pt. states lateral Lt foot pain for 1.5 months. No injury. TECHNIQUE: Images: XR FOOT 3V AP/LAT/OBL LT Comparison: None. RESULT: Findings: Bipartite medial and lateral sesamoid bones of the great toe. Minimal osteophyte formation involving the base of the proximal phalanx great toe. No fracture or dislocation. No soft tissue abnormality identified. IMPRESSION IMPRESSION: Mild first MTP osteoarthrosis. No acute osseous abnormality identified. Photoflash Powder Mixer: KEVIN Transcribe Date/Time: Apr 02 2021 5:44P Dictated by : TERRENCE LIMON MD This examination was interpreted and the report reviewed and electronically signed by: TERRENCE LIMON MD on Apr 02 2021 5:46PM EST [facility] Radiology Study observation (narrative) [facility] XR Foot - left AP and Latera l and obliqueOrdered By: Ccf Provider on 04-02-2021 [facility] Auto Diffon 06-19-2019 Basophils (Bld) [#/Vol] 0.1 E3/mcL Normal 0.0-0.2 [facility] Comment on above: Order Comment: Order Added by Discern Expert. Performed By: #### 2 [id number] #### [facility]N Rem[facility] [place] [address] Basophils/100 WBC (Bld) 1.0 % Normal 0.0-2.0 [facility] Comment on above: Order Comment: Order Added by Discern Expert. Performed By: #### 2 [id number] #### VAUGHN Rem[facility] [address] [place] [address] Eos Absolute 0.1 E3/mcL Normal 0.0-0.7 [facility] Comment on above: Order Comment: Order Added by Discern Expert. Performed By: #### 2 [id number] #### VAUGHN Rem[facility] [address] [place] [address] Eosinophils/100 WBC (Bld) 1.0 % Normal 0.0-11.0 [facility] Comment on above: Order Comment: Order Added by Discern Expert. Performed By: #### 2 [id number] #### VAUGHN Rem[facility] [address] [place] [address] Lymphocytes (Bld) [#/Vol] 2.8 E3/mcL Normal 1.2-3.4 [facility] Comment on above: Order Comment: Order Added by Discern Expert. Performed By: #### 2 [id number] #### VAUGHN [facility] [address] [place] [address] Lymphocytes/100 WBC (Bld) 28.5 % Normal 20.0-55.0 [facility] Comment on above: Order Comment: Order Added by Discern Expert. Performed By: #### 2 [id number] #### [facility] [address] [place] [address] Leslie Absolute 0.2 E3/mcL Normal 0.0-0.7 [facility] Comment on above: Order Comment: Order Added by Discern Expert. Performed By: #### 2 [id number] #### [facility] [address] [place] [address] Monocytes/100 WBC (Bld) 2.5 % Normal 0.0-10.0 [facility] Comment on above: Order Comment: Order Added by Discern Expert. Performed By: #### 2 [id number] #### [facility] [address] [place] [address] Neutro Absolute 6.6 E3/mcL High 1.4-6.5 [facility] Comment on above: Order Comment: Order Added by Discern Expert. Performed By: #### 2 [id number] #### [facility]AU[facility]N [facility] [address] [place] [address] Neutro Auto 67.0 % Normal 37.0-75.0 [facility] Comment on above: Order Comment: Order Added by Discern Expert. Performed By: #### 2 [id number] #### [facility]AU[facility] [address] [place] [address] CBC w/ Auto Diffon 9 Erythrocyte distribution width (RBC) [Ratio] 14.3 % Normal 11.5-14.5 [facility] Comment on above: Performed By: #### 2 [id number] #### VAUGHN [facility]berg[facility] [address] [place] [address] Hematocrit (Bld) [Volume fraction] 42.1 % Normal 42.0-52.0 [facility] Comment on above: Performed By: #### 2 [id number] #### VAUGHN [facility] [address] [place] [address] Hemoglobin (Bld) [Mass/Vol] 14.2 g/dL Normal 13.5-18.0 [facility] Comment on above: Performed By: #### 2 [id number] #### VAUGHN Eisenberg[facility]emo [facility] [place] [address] MCH (RBC) [Entitic mass] 31.9 pg High 27.0-31.0 [facility] Comment on above: Performed By: #### 2 [id number] #### VAUGHN [facility]berg[facility]emo [address] [place] [address] MCHC (RBC) [Mass/Vol] 33.8 g/dL Normal 33.0-37.0 [facility] Comment on above: Performed By: #### 2 [id number] #### VAUGHN Eisenberg[facility] [address] [place] [address] MCV (RBC) [Entitic vol] 94.4 fL Normal 78.0-100.0 [facility] Comment on above: Performed By: #### 2 [id number] #### VAUGHN Eisenberg[facility] [place] [address] Platelet mean volume (Bld) [Entitic vol] 8.7 fL Normal 7.4-11.0 [facility] Comment on above: Performed By: #### 2 [id number] #### VAUGHN Rem[facility] [address] [place] [address] Platelets (Bld) [#/Vol] 218 E3/mcL Normal 130-400 [facility] Comment on above: Performed By: #### 2 [id number] #### VAUGHN Rem[facility]emo [address] [place] [address] RBC (Bld) [#/Vol] 4.46 E6/mcL Normal 3.90-6.10 [facility] Comment on above: Performed By: #### 2 [id number] #### VAUGHN Rem[facility]emo [address] [place] [address] WBC (Bld) [#/Vol] 9.9 E3/mcL Normal 3.6-11.0 [facility] Comment on above: Performed By: #### 2 [id number] #### VAUGHN RemHemo [address] [place] [id number] CMPon 06-19-2019 Albumin [Mass/Vol] 4.1 g/dL Normal 3.4-5.0 [facility] Comment on above: Performed By: #### 2 [id number] #### VAUGHN [employer] [address] [place] [address] Albumin/Globulin [Mass ratio] 1.6 {ratio} Normal 1.1-1.9 [facility] Comment on above: Performed By: #### 2 [id number] #### [facility] [employer] [address] [place] [address] Alk Phos 77 Int._Unit/L Normal 33-120 [facility] Comment on above: Performed By: #### 2 [id number] #### [facility] [employer] [address] [place] [address] ALT [Catalytic activity/Vol] 19 Int._Unit/L Normal 10-52 [facility] Comment on above: Performed By: #### 2 [id number] #### [facility] [employer] [address] [place] [address] Anion gap [Moles/Vol] 13 mmol/L Normal 10-20 [facility] Comment on above: Performed By: #### 2 [id number] #### [facility] [employer] [address] [place] [address] AST [Catalytic activity/Vol] 17 Int._Unit/L Normal 9-39 [facility] Comment on above: Performed By: #### 2 [id number] #### [facility] [employer] [address] [place] [address] Bili Total 0.34 mg/dL Normal 0.00-1.20 [facility] Comment on above: Performed By: #### 2 [id number] #### [facility] [employer] [address] [place] [address] Calcium [Mass/Vol] 9.0 mg/dL Normal 8.6-10.3 [facility] Comment on above: Performed By: #### 2 [id number] #### [facility] [employer] [address] [place] [address] Chloride [Moles/Vol] 105 mmol/L Normal 98-107 [facility] Comment on above: Performed By: #### 2 [id number] #### [facility] [employer] [address] [place] [address] CO2 [Moles/Vol] 24.0 mmol/L Normal 21.0-32.0 [facility] Comment on above: Performed By: #### 2 [id number] #### [facility] [employer] [address] [place] [address] Creatinine [Mass/Vol] 1.1 mg/dL Normal 0.5-1.3 [facility] Comment on above: Performed By: #### 2 [id number] #### [facility] [employer] [address] [place] [address] Globulin (S) [Mass/Vol] 3.0 g/dL Normal 2.0-4.0 [facility] Comment on above: Performed By: #### 2 [id number] #### [facility] [employer] [address] [place] [address] Glucose [Mass/Vol] 197 mg/dL High 70-99 [facility] Comment on above: Performed By: #### 2 [id number] #### [facility] [employer] [address] [place] [address] Potassium [Moles/Vol] 3.5 mmol/L Normal 3.5-5.3 [facility] Comment on above: Performed By: #### 2 [id number] #### [facility] [employer] [address] [place] [address] Protein [Mass/Vol] 6.6 g/dL Normal 6.4-8.2 [facility] Comment on above: Performed By: #### 2 [id number] #### [facility] [employer] [address] [place] [address] Sodium [Moles/Vol] 138 mmol/L Normal 136-145 [facility] Comment on above: Performed By: #### 2 [id number] #### [facility] [employer] [address] [place] [address] Urea nitrogen [Mass/Vol] 22 mg/dL Normal 6-23 [facility] Comment on above: Performed By: #### 2 [id number] #### [facility] [employer] [facility] [place] [address] Urea nitrogen/Creatinine [Mass ratio] 20.0 ratio Normal 5.4-30.0 [facility] Comment on above: Performed By: #### 2 [id number] #### [facility] [employer] [address] [place] [address] Abdomen/Pelvis w/ Contras ton 06-19-2019 CT Abdomen/Pelvis w/ Contrast Exam Date/Time: 06/19/2019 07:30 EDT Reason for Exam: Pain Report STUDY: CT Abdomen/Pelvis w/ Contrast; 06/19/2019 7:30 am INDICATION: Pain. Abdominal pain and vomiting since 2:00 a.m. COMPARISON: None. ACCESSION NUMBER(S): [id number] ORDERING CLINICIAN: Yusef Lopez TECHNIQUE: Contiguous axial images were obtained through the abdomen and pelvis following the intravenous administration of 150 cc of Omnipaque 350. Coronal and sagittal reconstructions were performed. FINDINGS: LOWER CHEST: Images through the lung bases demonstrate mild atelectasis. Small hiatal hernia noted. ABDOMEN AND PELVIS: LIVER: There is mild periportal edema which is nonspecific but is most likely related to aggressive fluid resuscitation. Correlate with LFTs to exclude hepatitis. BILE DUCTS: Not abnormally dilated. GALLBLADDER: No calcified gallstones are identified. However, there is mild gallbladder wall thickening and/or pericholecystic fluid. Findings are nonspecific but cholecystitis is a consideration. Consider ultrasound and/or HIDA scan. PANCREAS: Appears unremarkable. SPLEEN: Appears unremarkable. ADRENAL GLANDS: Appear unremarkable. Exam Date/Time: 06/19/2019 07:30 EDT Report KIDNEYS, URETERS, AND BLADDER: The kidneys enhance with contrast material symmetrically. There is no evidence of hydronephrosis. 1.5 cm hypoattenuating lesion noted within the inferior pole the left kidney, too small to characterize, but statistically most likely a cyst. The urinary bladder appears grossly unremarkable. BOWEL: The small and large bowel are normal in caliber and demonstrate no wall thickening. There is no evidence of a bowel obstruction. Appendix is normal in caliber. Although CT has limited sensitivity and specificity for gastric pathology, the stomach appears grossly unremarkable. RETROPERITONEUM, VESSELS: There is no aneurysmal dilatation of the abdominal aorta. The IVC is within normal limits. No pathologically enlarged retroperitoneal lymph nodes are noted. PERITONEUM: There is no evidence of pneumoperitoneum. No ascites or loculated fluid collection noted. No pathologically enlarged mesenteric lymph nodes are identified. ABDOMINAL WALL, SOFT TISSUES: Small fat containing umbilical hernia. Small fat containing inguinal hernias, larger on the left. Small bilateral scrotal hydroceles are partially visible/included on the examination. SKELETON: Degenerative changes, most conspicuous at the L5-S1 level. No acute process. IMPRESSION: Mild gallbladder wall thickening and/or pericholecystic fluid. This is nonspecific but cholecystitis is a consideration. Consider further evaluation with ultrasound and/or HIDA scan. Mild periportal edema which is nonspecific but is most likely related to aggressive fluid resuscitation. Correlate with LFTs to exclude hepatitis. Additional findings as above. FINAL REPORT Dictated: 06/19/2019 7:59 am Darvin Spencer MD Signed (Electronic Signature): 06/19/2019 7:59 am Signed by: Darvin Spencer MD Technologist: Shantelle ESTES [facility] Lactic Acidon 06-19-2019 Lactate [Moles/Vol] 1.7 mmol/L Normal 0.4-2.0 [facility] Comment on above: Performed By: #### 2 [id number] #### [facility]AU[facility] [address] [place] [address] Lactate [Moles/Vol] 4.1 mmol/L High 0.4-2.0 [facility] Comment on above: Performed By: #### 2 [id number] #### [facility] [employer] [address] [place] [address] Lactate [Moles/Vol] 2.6 mmol/L High 0.4-2.0 [facility] Comment on above: Performed By: #### 2 [id number] #### [facility] [employer] [address] [place] [address] Lipase Levelon 08-12-2019 Lipase Lvl 18 Int._Unit/L Normal 9-82 [facility] Comment on above: Performed By: #### 2 [id number] #### [facility]AU[facility] [employer] [address] [place], [place] [id number] Troponin-Ion 06-19-2019 Troponin I.cardiac [Mass/Vol] ng/mL Normal 0.00-0.03 [facility] Comment on above: Performed By: #### 2 [id number] #### [facility]N [facility] [address] [place] [address] UA Completeon 06-19-2019 Color (U) Yellow Normal Yellow [facility] Comment on above: Performed By: #### 8 [id number] #### VAUGHN Urinalysis Automated Subsection [address] [place] [address] Glucose (U) [Mass/Vol] Negative Normal Negative [facility] Comment on above: Performed By: #### 8 [id number] #### VAUGHN Urinalysis Automated Subsection [address] [place] [address] Ketones Ql (U) Trace Normal [facility] Comment on above: Performed By: #### 8 [id number] #### VAUGHN Urinalysis Automated Subsection [address] [place] [address] RBC (U) [#/Vol] 0-3 Normal 0-3 [facility] Comment on above: Performed By: #### 8 [id number] #### VAUGHN Urinalysis Automated Subsection [address] [place] [address] UA Blood Negative Normal Negative [facility] Comment on above: Performed By: #### 8 [id number] #### VAUGHN Urinalysis Automated Subsection [address] [place] [address] UA Clarity Clear Normal Clear [facility] Comment on above: Performed By: #### [id number] #### VAUGHN Urinalysis Automated Subsection [address] [place], [place] [id number] UA Leuk Est Negative Normal Negative [facility] Comment on above: Performed By: #### [id number] #### VAUGHN Urinalysis Automated Subsection [address] [place] [address] UA Mucous Occasional Abnormal Trace [facility] Comment on above: Performed By: #### 8 [id number] #### VAUGHN Urinalysis Automated Subsection [address] [place] [id number] UA Nitrite Negative Normal Negative [facility] Comment on above: Performed By: #### [id number] #### VAUGHN Urinalysis Automated Subsection [address] [place] [id number] UA pH 5.0 Normal 4.6-8.0 [facility] Comment on above: Performed By: #### [id number] #### VAUGHN Urinalysis Automated Subsection [address] [place] [address] UA Protein Negative Normal Negative [facility] Comment on above: Performed By: #### [id number] #### VAUGHN Urinalysis Automated Subsection [address] [place] [address] UA Spec Grav >1.060 High 1.003-1.030 [facility] Comment on above: Performed By: #### [id number] #### VAUGHN Urinalysis Automated Subsection [address] [place] [address] UA Squam Epithelial 0-5 Normal 0-5 [facility] Comment on above: Performed By: #### [id number] #### VAUGHN Urinalysis Automated Subsection [address] [place] [address] UA Urobilinogen Negative Normal [facility] Comment on above: Result Comment: Due to a manufacturing issue, low positive urobilinogen results may be fasely positive. Correlate with urine bilirubin and additional clinical/laboratory findings to assess the risk of hemolytic anemia or liver disease. If clinically indicated, repeat testing with an alternate method is available by contacting the laboratory within 24 hours. Performed By: #### 8 [id number] #### VAUGHN Urinalysis Automated Subsection [address] [place] [address] UA WBC 0-5 Normal 0-5 [facility] Comment on above: Performed By: #### 8 [id number] #### VAUGHN Urinalysis Automated Subsection [address] [place] [address] Urobilinogen Qn (U) Negative Normal Negative [facility] Comment on above: Performed By: #### [id number] #### VAUGHN Urinalysis Automated Subsection [address] [place] [address] eGFRon 06-19-2019 GFR/1.73 sq M predicted among non-blacks MDRD (S/P/Bld) [Vol rate/Area] mL/min/{1.73_m2} Normal [facility] Comment on above: Order Comment: Order added by Discern Expert. Performed By: #### 1 [id number] #### [facility]AU[facility]N [facility] [address] [place] [address] Vital Signs Date Time Vital Sign Value Performing Clinician Facility 05-02-2025 07:05-0400 Body height 187.[address] Kenneth Beckett MD Work Phone: 7(592)677-516776 [place] [address] 05-02-2025 07:05-0400 Body mass index (BMI) [Ratio] 33.3 kg/m2 Dr. Kenneth Beckett MD Work Phone: 4(748)858-857176 [place] [address] 05-02-2025 07:05-0400 Body weight 117.[address] Kenneth Beckett MD Work Phone: 0(758)406-222476 [place] [address] 05-02-2025 07:05-0400 Diastolic blood pressure 7 mm[Hg] Dr. Kenneth Beckett MD Work Phone: 2(888)689-672776 [place] [address] 05-02-2025 07:05-0400 Heart rate 76 /min Dr. Kenneth Beckett MD Work Phone: 5(822)210-355876 [place] [address] 05-02-2025 07:05-0400 Respiratory rate 18 /min Dr. Kenneth Beckett MD Work Phone: 1(565)124-806976 [place] [address] 05-02-2025 07:05-0400 SaO2% (BldA) [Mass fraction] 95 % Dr. Kenneth Beckett MD Work Phone: 8(422)331-604876 [place] [address] 05-02-2025 07:05-0400 Systolic blood pressure 117 mm[Hg] Dr. Kenneth Beckett MD Work Phone: 9(836)828-358176 [place] [address] 04-30-2025 18:01-0400 Diastolic blood pressure 69 mm[Hg] Dr. Kenneth Beckett MD Work Phone: 1(650)644-736476 [place] [address] 04-30-2025 18:01-0400 Heart rate 98 /min Dr. Kenneth Beckett MD Work Phone: 1(968)126-884506 [place] [address] 04-30-2025 18:01-0400 Respiratory rate 22 /min Dr. Kenneth Beckett MD Work Phone: 3(727)864-409706 [place] [address] 04-30-2025 18:01-0400 SaO2% (BldA) [Mass fraction] 95 % Dr. Kenneth Beckett MD Work Phone: 0(386)186-369506 [place] [address] 04-30-2025 18:01-0400 Systolic blood pressure 96 mm[Hg] Dr. Kenneth Beckett MD Work Phone: 0(005)300-859976 [place] [address] 04-30-2025 15:04-0400 Body height 187.[address] Kenneth Beckett MD Work Phone: 5(010)190-313876 [place] [address] 04-30-2025 15:04-0400 Body mass index (BMI) [Ratio] 33 kg/m2 Dr. Kenneth Beckett MD Work Phone: 9(934)498-618376 [place] [address] 04-30-2025 15:04-0400 Body temperature 97.1 [degF] Dr. Kenneth Beckett MD Work Phone: 8(506)253-029076 [place] [address] 04-30-2025 15:04-0400 Body weight 116.[address] Kenneth Beckett MD Work Phone: 2(243)964-760576 [place] [address] 04-30-2025 15:00-0400 Heart rate 127 /min Yennifer Worrell MANAGER DRUG SAFETY.NETWORK DESIGN ARCHITECT Work Phone: [facility] 04-30-2025 14:08-0400 Body temperature 98.01 [degF] Yennifer Haagen MANAGER DRUG SAFETY.NETWORK DESIGN ARCHITECT Work Phone: 3(517)856-876784 [place] [address] 04-30-2025 14:08-0400 Diastolic blood pressure 47 mm[Hg] Yennifer Worrell MANAGER DRUG SAFETY.NETWORK DESIGN ARCHITECT Work Phone: [facility] 04-30-2025 14:08-0400 Respiratory rate 16 /min Yennifer Worrell MANAGER DRUG SAFETY.NETWORK DESIGN ARCHITECT Work Phone: [facility] 04-30-2025 14:08-0400 SaO2% (BldA) [Mass fraction] 98 % Yennifer Haagen MANAGER DRUG SAFETY.NETWORK DESIGN ARCHITECT Work Phone: [facility] 04-30-2025 14:08-0400 Systolic blood pressure 95 mm[Hg] Yennifer Haagen MANAGER DRUG SAFETY.NETWORK DESIGN ARCHITECT Work Phone: [facility] 04-23-2025 07:57-0400 Diastolic blood pressure 82 mm[Hg] Yennifer Haagen MANAGER DRUG SAFETY.NETWORK DESIGN ARCHITECT Work Phone: [facility] 04-23-2025 07:57-0400 Heart rate 49 /min Yennifer Haagen MANAGER DRUG SAFETY.NETWORK DESIGN ARCHITECT Work Phone: [facility] 04-23-2025 07:57-0400 Respiratory rate 16 /min Yennifer Haagen MANAGER DRUG SAFETY.NETWORK DESIGN ARCHITECT Work Phone: [facility] 04-23-2025 07:57-0400 SaO2% (BldA) [Mass fraction] 95 % Yennifer Worrell MANAGER DRUG SAFETY.NETWORK DESIGN ARCHITECT Work Phone: [facility] 04-23-2025 07:57-0400 Systolic blood pressure 118 mm[Hg] Yennifer Haagen MANAGER DRUG SAFETY.NETWORK DESIGN ARCHITECT Work Phone: [facility] 02-19-2025 09:42-0400 Body mass index (BMI) [Ratio] 35.67 kg/m2 Hanh Bowersan MANAGER DRUG SAFETY.NETWORK DESIGN ARCHITECT Work Phone: [facility] 02-19-2025 09:42-0400 Body temperature 97 [degF] Hanh Suppan MANAGER DRUG SAFETY.NETWORK DESIGN ARCHITECT Work Phone: [facility] 02-19-2025 09:42-0400 Body weight 119.3 kg Hanh Suppan MANAGER DRUG SAFETY.NETWORK DESIGN ARCHITECT Work Phone: [facility] 02-19-2025 09:42-0400 Diastolic blood pressure 74 mm[Hg] Hanh Suppan MANAGER DRUG SAFETY.NETWORK DESIGN ARCHITECT Work Phone: [facility] 02-19-2025 09:42-0400 Heart rate 59 /min Hanh Suppan MANAGER DRUG SAFETY.NETWORK DESIGN ARCHITECT Work Phone: [facility] 02-19-2025 09:42-0400 SaO2% (BldA) [Mass fraction] 96 % Hanh Suppan MANAGER DRUG SAFETY.NETWORK DESIGN ARCHITECT Work Phone: [facility] 02-19-2025 09:42-0400 Systolic blood pressure 122 mm[Hg] Hanh Suppan MANAGER DRUG SAFETY.NETWORK DESIGN ARCHITECT Work Phone: [facility] 01-22-2025 14:02-0400 Body mass index (BMI) [Ratio] 35.4 kg/m2 Hanh Suppan MANAGER DRUG SAFETY.NETWORK DESIGN ARCHITECT Work Phone: [facility] 01-22-2025 14:02-0400 Body temperature 98.1 [degF] Hanh Suppan MANAGER DRUG SAFETY.NETWORK DESIGN ARCHITECT Work Phone: [facility] 01-22-2025 14:02-0400 Body weight 118.39 kg Hanh Suppan MANAGER DRUG SAFETY.NETWORK DESIGN ARCHITECT Work Phone: [facility] 01-22-2025 14:02-0400 Diastolic blood pressure 74 mm[Hg] Hanh Suppan MANAGER DRUG SAFETY.NETWORK DESIGN ARCHITECT Work Phone: [facility] 01-22-2025 14:02-0400 Heart rate 64 /min Hanh Suppan MANAGER DRUG SAFETY.NETWORK DESIGN ARCHITECT Work Phone: [facility] 01-22-2025 14:02-0400 SaO2% (BldA) [Mass fraction] 95 % Hanh Suppan MANAGER DRUG SAFETY.NETWORK DESIGN ARCHITECT Work Phone: [facility] 01-22-2025 14:02-0400 Systolic blood pressure 128 mm[Hg] Hanh Suppan MANAGER DRUG SAFETY.NETWORK DESIGN ARCHITECT Work Phone: [facility] 01-15-2025 14:31-0400 Body mass index (BMI) [Ratio] 34.2 kg/m2 Dr. Kenneth Beckett MD Work Phone: [facility] 01-15-2025 14:31-0400 Body weight 117.[address] Kenneth Beckett MD Work Phone: [facility] 01-15-2025 14:31-0400 Diastolic blood pressure 75 mm[Hg] Dr. Kenneth Beckett MD Work Phone: [facility] 01-15-2025 14:31-0400 Heart rate 61 /min Dr. Kenneth Beckett MD Work Phone: [facility] 01-15-2025 14:31-0400 Inhaled oxygen flow rate 94 L/min Dr. Kenneth Beckett MD Work Phone: [facility] 01-15-2025 14:31-0400 Respiratory rate 18 /min Dr. Kenneth Beckett MD Work Phone: [facility] 01-15-2025 14:31-0400 Systolic blood pressure 124 mm[Hg] Dr. Kenneth Beckett MD Work Phone: [facility] 12-25-2024 20:58-0500 Diastolic blood pressure 80 mm[Hg] Kenneth Beckett MD Work Phone: [facility] 12-25-2024 20:58-0500 Heart rate 63 /min Kenneth Beckett MD Work Phone: [facility] 12-25-2024 20:58-0500 Respiratory rate 18 /min Kenneth Beckett MD Work Phone: [facility] 12-25-2024 20:58-0500 SaO2% (BldA) [Mass fraction] 94 % Kenneth Beckett MD Work Phone: [facility] 12-25-2024 20:58-0500 Systolic blood pressure 133 mm[Hg] Kenneth Beckett MD Work Phone: [facility] 12-25-2024 20:14-0500 Body height 188 cm Kenneth Beckett MD Work Phone: [facility] 12-25-2024 20:14-0500 Body mass index (BMI) [Ratio] 31.46 kg/m2 Kenneth Beckett MD Work Phone: [facility] 12-25-2024 20:14-0500 Body temperature 97.7 [degF] Kenneth Beckett MD Work Phone: 5(578)220-[address] [place] [address] 12-25-2024 20:14-0500 Body weight 111.13 kg Kenneth Beckett MD Work Phone: [facility] 10-30-2024 10:45-0500 Body height 188 cm Jhon McGreal PA-C Work Phone: [facility] [employer] 10-30-2024 10:45-0500 Body mass index (BMI) [Ratio] 31.84 kg/m2 Jhon McGreal PA-C Work Phone: [facility] [employer] 10-30-2024 10:45-0500 Body weight 112.49 kg Jhon McGreal PA-C Work Phone: [facility] [employer] 10-30-2024 10:45-0500 Diastolic blood pressure 82 mm[Hg] Jhon McGreal PA-C Work Phone: [facility] [employer] 10-30-2024 10:45-0500 Heart rate 58 /min Jhon Highreal PA-C Work Phone: [facility] [employer] 10-30-2024 10:45-0500 Systolic blood pressure 106 mm[Hg] Jhon Highreal PA-C Work Phone: [facility] [employer] 10-20-2024 13:00-0500 Diastolic blood pressure 82 mm[Hg] Edinson Alanis MD Work Phone: [facility] [employer] 10-20-2024 13:00-0500 Heart rate 58 /min Edinson Alanis MD Work Phone: [facility] [employer] 10-20-2024 13:00-0500 SaO2% (BldA) [Mass fraction] 93 % Edinson Alanis MD Work Phone: [facility] [employer] 10-20-2024 13:00-0500 Systolic blood pressure 106 mm[Hg] Edinson Alanis MD Work Phone: [facility] [employer] 10-20-2024 12:40-0500 Respiratory rate 20 /min Edinson Alanis MD Work Phone: [facility] [employer] 10-20-2024 12:10-0500 Body temperature 97.81 [degF] Edinson Alanis MD Work Phone: [facility] [employer] 10-20-2024 09:41-0500 Body height 188 cm Edinson Alanis MD Work Phone: [facility] [employer] 10-20-2024 09:41-0500 Body mass index (BMI) [Ratio] 31.84 kg/m2 Edinson Alanis MD Work Phone: [facility] [employer] 10-20-2024 09:41-0500 Body weight 112.49 kg Edinson Alanis MD Work Phone: [facility] [employer] 09-05-2024 21:10-0400 Diastolic blood pressure 80 mm[Hg] Stepehn Foskey DO Work Phone: [employer] 09-05-2024 21:10-0400 Heart rate 76 /min Stephen Foskey DO Work Phone: [employer] 09-05-2024 21:10-0400 Respiratory rate 18 /min Stephen Foskey DO Work Phone: [employer] 09-05-2024 21:10-0400 SaO2% (BldA) [Mass fraction] 98 % Stephen Foskey DO Work Phone: [employer] 09-05-2024 21:10-0400 Systolic blood pressure 166 mm[Hg] Stephen Foskey DO Work Phone: [employer] 09-05-2024 19:23-0400 Body temperature 98.71 [degF] Stephen Foskey DO Work Phone: [employer] 09-05-2024 19:21-0400 Body height 185.4 cm Stephen Foskey DO Work Phone: [employer] 09-05-2024 19:21-0400 Body mass index (BMI) [Ratio] 32.85 kg/m2 Stephen Foskey DO Work Phone: [employer] 09-05-2024 19:21-0400 Body weight 112.95 kg Stephen Foskey DO Work Phone: [employer] [facility] 09-04-2024 09:48-0400 Body height 188 cm Edinson Alanis MD Work Phone: [facility] 09-04-2024 09:48-0400 Body mass index (BMI) [Ratio] 31.84 kg/m2 Edinson Alanis MD Work Phone: [facility] 09-04-2024 09:48-0400 Body weight 112.49 kg Edinson Alanis MD Work Phone: [facility] 09-04-2024 09:48-0400 Diastolic blood pressure 78 mm[Hg] Edinson Alanis MD Work Phone: [facility] 09-04-2024 09:48-0400 Systolic blood pressure 120 mm[Hg] Edinson Alanis MD Work Phone: [facility] 05-29-2024 14:10-0400 Body mass index (BMI) [Ratio] 34.38 kg/m2 Vale Iyer MANAGER DRUG SAFETY.NETWORK DESIGN ARCHITECT Work Phone: [facility] 05-29-2024 14:10-0400 Body temperature 97.81 [degF] Vale Iyer MANAGER DRUG SAFETY.NETWORK DESIGN ARCHITECT Work Phone: [facility] 05-29-2024 14:10-0400 Body weight 115 kg Vale Iyer MANAGER DRUG SAFETY.NETWORK DESIGN ARCHITECT Work Phone: [facility] 05-29-2024 14:10-0400 Diastolic blood pressure 80 mm[Hg] Vale Iyer MANAGER DRUG SAFETY.NETWORK DESIGN ARCHITECT Work Phone: [facility] 05-29-2024 14:10-0400 Heart rate 65 /min Vale Iyer MANAGER DRUG SAFETY.NETWORK DESIGN ARCHITECT Work Phone: [facility] 05-29-2024 14:10-0400 Respiratory rate 21 /min Vale Iyer MANAGER DRUG SAFETY.NETWORK DESIGN ARCHITECT Work Phone: [facility] 05-29-2024 14:10-0400 SaO2% (BldA) [Mass fraction] 97 % Vale Iyer MANAGER DRUG SAFETY.NETWORK DESIGN ARCHITECT Work Phone: [facility] 05-29-2024 14:10-0400 Systolic blood pressure 128 mm[Hg] Vale Iyer MANAGER DRUG SAFETY.NETWORK DESIGN ARCHITECT Work Phone: [facility] 12-27-2023 17:13-0500 Body weight 117.48 kg Kenneth Beckett MD Work Phone: [facility] 12-27-2023 17:13-0500 Diastolic blood pressure 82 mm[Hg] Kenneth Beckett MD Work Phone: [facility] 12-27-2023 17:13-0500 Heart rate 76 /min Kenneth Beckett MD Work Phone: [facility] 12-27-2023 17:13-0500 SaO2% (BldA) [Mass fraction] 96 % Kenneth Beckett MD Work Phone: [facility] 12-27-2023 17:13-0500 Systolic blood pressure 126 mm[Hg] Kenneth Beckett MD Work Phone: [facility] 12-22-2023 19:12-0500 Body temperature 98.71 [degF] Vale Iyer MANAGER DRUG SAFETY.NETWORK DESIGN ARCHITECT Work Phone: [facility] 12-22-2023 19:12-0500 Body weight 117.94 kg Vale Iyer MANAGER DRUG SAFETY.NETWORK DESIGN ARCHITECT Work Phone: [facility] 12-22-2023 19:12-0500 Diastolic blood pressure 68 mm[Hg] Vale Iyer MANAGER DRUG SAFETY.NETWORK DESIGN ARCHITECT Work Phone: [facility] 12-22-2023 19:12-0500 Heart rate 90 /min Vale Iyer MANAGER DRUG SAFETY.NETWORK DESIGN ARCHITECT Work Phone: [facility] 12-22-2023 19:12-0500 Respiratory rate 16 /min Vale Iyer MANAGER DRUG SAFETY.NETWORK DESIGN ARCHITECT Work Phone: [facility] 12-22-2023 19:12-0500 SaO2% (BldA) [Mass fraction] 96 % Vale Iyer MANAGER DRUG SAFETY.NETWORK DESIGN ARCHITECT Work Phone: [facility] 12-22-2023 19:12-0500 Systolic blood pressure 118 mm[Hg] Vale Iyer APRN.NETWORK DESIGN ARCHITECT Work Phone: [facility] 12-20-2023 09:23-0500 Body temperature 97.81 [degF] Lauren Mckenzie APRN.NETWORK DESIGN ARCHITECT Work Phone: [facility] 12-20-2023 09:23-0500 Body weight 122.02 kg Lauren Mckenzie APRN.NETWORK DESIGN ARCHITECT Work Phone: [facility] 12-20-2023 09:23-0500 Diastolic blood pressure 68 mm[Hg] Lauren Mckenzie APRN.NETWORK DESIGN ARCHITECT Work Phone: [facility] 12-20-2023 09:23-0500 Heart rate 74 /min Lauren Mckenzie APRN.NETWORK DESIGN ARCHITECT Work Phone: [facility] 12-20-2023 09:23-0500 Respiratory rate 16 /min Lauren Mckenzie APRN.NETWORK DESIGN ARCHITECT Work Phone: [facility] 12-20-2023 09:23-0500 SaO2% (BldA) [Mass fraction] 96 % Lauren Mckenzie APRN.NETWORK DESIGN ARCHITECT Work Phone: [facility] 12-20-2023 09:23-0500 Systolic blood pressure 124 mm[Hg] Lauren Mckenzie APRN.NETWORK DESIGN ARCHITECT Work Phone: [facility] 07-07-2023 17:43-0400 Body temperature 97.7 [degF] Aly Antonio APRN.NETWORK DESIGN ARCHITECT Work Phone: [facility] 07-07-2023 17:43-0400 Body weight 119.75 kg Aly Antonio APRN.NETWORK DESIGN ARCHITECT Work Phone: [facility] 07-07-2023 17:43-0400 Diastolic blood pressure 78 mm[Hg] Aly Antonio APRN.NETWORK DESIGN ARCHITECT Work Phone: [facility] 07-07-2023 17:43-0400 Heart rate 118 /min Aly Paco MANAGER DRUG SAFETY.NETWORK DESIGN ARCHITECT Work Phone: [facility] 07-07-2023 17:43-0400 Respiratory rate 18 /min Aly 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 Work Phone: [facility] 07-07-2023 17:43-0400 SaO2% (BldA) [Mass fraction] 98 % Aly 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 Work Phone: [facility] 07-07-2023 17:43-0400 Systolic blood pressure 124 mm[Hg] 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 Work Phone: [facility] 12-28-2022 09:53-0500 Body height 184.2 cm Pulm Wstr Work Phone: [facility] 12-28-2022 09:53-0500 Body weight 118.84 kg Pulm Wstr Work Phone: [facility] 12-28-2022 09:53-0500 Heart rate 72 /min Pulm Wstr Work Phone: [facility] 12-28-2022 09:53-0500 Respiratory rate 14 /min Pulm Wstr Work Phone: [facility] 12-28-2022 09:53-0500 SaO2% (BldA) [Mass fraction] 97 % Pulm Wstr Work Phone: [facility] 12-16-2022 14:56-0500 Body height 188 cm Kenneth Beckett MD Work Phone: [facility] 12-16-2022 14:56-0500 Body weight 118.84 kg Kenneth Beckett MD Work Phone: [facility] 12-16-2022 14:56-0500 Diastolic blood pressure 80 mm[Hg] Kenneth Beckett MD Work Phone: [facility] 12-16-2022 14:56-0500 Heart rate 63 /min Kenneth Beckett MD Work Phone: [facility] 12-16-2022 14:56-0500 SaO2% (BldA) [Mass fraction] 98 % Kenneth Beckett MD Work Phone: [facility] 12-16-2022 14:56-0500 Systolic blood pressure 118 mm[Hg] Kenneth Beckett MD Work Phone: [facility] 11-18-2022 10:13-0500 Body weight 118.66 kg Shama Podlogar MANAGER DRUG SAFETY.NETWORK DESIGN ARCHITECT Work Phone: [facility] 11-18-2022 10:13-0500 Diastolic blood pressure 80 mm[Hg] Shama Podlogar MANAGER DRUG SAFETY.NETWORK DESIGN ARCHITECT Work Phone: [facility] 11-18-2022 10:13-0500 Heart rate 60 /min Shama Podlogar MANAGER DRUG SAFETY.NETWORK DESIGN ARCHITECT Work Phone: [facility] 11-18-2022 10:13-0500 Respiratory rate 18 /min Shama Podlogar MANAGER DRUG SAFETY.NETWORK DESIGN ARCHITECT Work Phone: [facility] 11-18-2022 10:13-0500 SaO2% (BldA) [Mass fraction] 95 % Shama Podlogar MANAGER DRUG SAFETY.NETWORK DESIGN ARCHITECT Work Phone: [facility] 11-18-2022 10:13-0500 Systolic blood pressure 124 mm[Hg] Shama Podlogar MANAGER DRUG SAFETY.NETWORK DESIGN ARCHITECT Work Phone: [facility] 10-31-2022 15:07-0500 Body height 188 cm Mariia Larouere MANAGER DRUG SAFETY.NETWORK DESIGN ARCHITECT Work Phone: [facility] 10-31-2022 15:07-0500 Body temperature 97 [degF] Mariia Larouere MANAGER DRUG SAFETY.NETWORK DESIGN ARCHITECT Work Phone: [facility] 10-31-2022 15:07-0500 Body weight 121.11 kg Mariia Larouere MANAGER DRUG SAFETY.NETWORK DESIGN ARCHITECT Work Phone: [facility] 10-31-2022 15:07-0500 Diastolic blood pressure 76 mm[Hg] Mariia Larouere MANAGER DRUG SAFETY.NETWORK DESIGN ARCHITECT Work Phone: [facility] 10-31-2022 15:07-0500 Heart rate 88 /min Mariia Larouere MANAGER DRUG SAFETY.NETWORK DESIGN ARCHITECT Work Phone: [facility] 10-31-2022 15:07-0500 Respiratory rate 16 /min Mariia Rolandoouere MANAGER DRUG SAFETY.NETWORK DESIGN ARCHITECT Work Phone: [facility] 10-31-2022 15:07-0500 SaO2% (BldA) [Mass fraction] 96 % Mariia Rolandoouere MANAGER DRUG SAFETY.NETWORK DESIGN ARCHITECT Work Phone: [facility] 10-31-2022 15:07-0500 Systolic blood pressure 128 mm[Hg] Mariia Rolandoouere MANAGER DRUG SAFETY.NETWORK DESIGN ARCHITECT Work Phone: [facility] 09-08-2022 14:37-0400 Body temperature 98.4 [degF] Yennifer Worrell MANAGER DRUG SAFETY.NETWORK DESIGN ARCHITECT Work Phone: [facility] 09-08-2022 14:37-0400 Diastolic blood pressure 88 mm[Hg] Yennifer Haagen MANAGER DRUG SAFETY.NETWORK DESIGN ARCHITECT Work Phone: [facility] 09-08-2022 14:37-0400 Heart rate 70 /min Yennifer Haagen MANAGER DRUG SAFETY.NETWORK DESIGN ARCHITECT Work Phone: [facility] 09-08-2022 14:37-0400 Respiratory rate 18 /min Yennifer Haagen MANAGER DRUG SAFETY.NETWORK DESIGN ARCHITECT Work Phone: [facility] 09-08-2022 14:37-0400 SaO2% (BldA) [Mass fraction] 95 % Yennifer Haagen MANAGER DRUG SAFETY.NETWORK DESIGN ARCHITECT Work Phone: [facility] 09-08-2022 14:37-0400 Systolic blood pressure 126 mm[Hg] Yennifer Haagen MANAGER DRUG SAFETY.NETWORK DESIGN ARCHITECT Work Phone: [facility] 08-11-2022 18:28-0400 Body temperature 98.2 [degF] Becki Riggins MANAGER DRUG SAFETY.NETWORK DESIGN ARCHITECT Work Phone: [facility] 08-11-2022 18:28-0400 Body weight 118.66 kg Becki Riggins MANAGER DRUG SAFETY.NETWORK DESIGN ARCHITECT Work Phone: [facility] 08-11-2022 18:28-0400 Diastolic blood pressure 80 mm[Hg] Becki Praisler-Wood MANAGER DRUG SAFETY.NETWORK DESIGN ARCHITECT Work Phone: [facility] 08-11-2022 18:28-0400 Heart rate 66 /min Becki Praisler-Wood MANAGER DRUG SAFETY.NETWORK DESIGN ARCHITECT Work Phone: [facility] 08-11-2022 18:28-0400 Respiratory rate 16 /min Becki Praisler-Wood MANAGER DRUG SAFETY.NETWORK DESIGN ARCHITECT Work Phone: [facility] 08-11-2022 18:28-0400 SaO2% (BldA) [Mass fraction] 96 % Becki Praisler-Wood MANAGER DRUG SAFETY.NETWORK DESIGN ARCHITECT Work Phone: [facility] 08-11-2022 18:28-0400 Systolic blood pressure 122 mm[Hg] Becki Praisler-Wood MANAGER DRUG SAFETY.NETWORK DESIGN ARCHITECT Work Phone: [facility] 05-25-2022 16:56-0400 Body temperature 98.6 [degF] Aly Paco MANAGER DRUG SAFETY.NETWORK DESIGN ARCHITECT Work Phone: [facility] 05-25-2022 16:56-0400 Body weight 117.57 kg Aly Paco MANAGER DRUG SAFETY.NETWORK DESIGN ARCHITECT Work Phone: [facility] 05-25-2022 16:56-0400 Diastolic blood pressure 84 mm[Hg] Aly Paco MANAGER DRUG SAFETY.NETWORK DESIGN ARCHITECT Work Phone: [facility] 05-25-2022 16:56-0400 Heart rate 78 /min Aly Paco MANAGER DRUG SAFETY.NETWORK DESIGN ARCHITECT Work Phone: [facility] 05-25-2022 16:56-0400 Respiratory rate 20 /min Aly Paco MANAGER DRUG SAFETY.NETWORK DESIGN ARCHITECT Work Phone: [facility] 05-25-2022 16:56-0400 SaO2% (BldA) [Mass fraction] 96 % Aly Paco MANAGER DRUG SAFETY.NETWORK DESIGN ARCHITECT Work Phone: [facility] 05-25-2022 16:56-0400 Systolic blood pressure 124 mm[Hg] Aly Paco MANAGER DRUG SAFETY.NETWORK DESIGN ARCHITECT Work Phone: [facility] Encounters Encounter Date Encounter Type Care Provider Facility Start: 05-02-2025 ambulatory Kenneth Beckett Facility:[facility] Start: 05-02-2025 End: 05-02-2025 Patient encounter procedure Shashikamla EATON -[facility] Work Phone: Start: 05-02-2025 End: 05-02-[address] Kenneth Beckett MD Work Phone: [facility] Work Phone: Start: 04-30-2025 End: 04-30-2025 Emergency department patient visit Dr. Kenneth Becektt MD Work Phone: -Emergency Department Work Phone: Start: 04-30-2025 End: 04-30-2025 Office outpatient visit 25 minutes Yennifer Worrell APRN.NETWORK DESIGN ARCHITECT Work Phone: [facility] Comment on above: Paroxysmal atrial fi brillation (HCC) (Primary Dx); Dizziness and giddiness Start: 04-30-2025 ambulatory [facility] Facility :[facility] Start: 04-24-2025 End: 04-25-2025 Follow-up encounter Yennifer Worrell APRN.NETWORK DESIGN ARCHITECT Work Phone: [facility] Comment on above: Results Start: 04-23-2025 End: 04-23-2025 Initial preventive medicine new patient 40-64yrs Yennifer Worrell APRN.NETWORK DESIGN ARCHITECT Work Phone: [facility] Comment on above: Wellness examination (Primary Dx); Anxiety and depression; Hyperlipidemia, mixed; Screening for colon cancer Start: 04-23-2025 End: 04-23-2025 Patient encounter status Yennifer Worrell APRN.NETWORK DESIGN ARCHITECT Work Phone: [facility] Start: 04-23-2025 End: 04-23-2025 ambulatory [facility] Start: 04-23-2025 Encounter for genera l adult medical examination without abnormal findings YENNIFER [facility] Start: 03-16-2025 End: 03-16-2025 Refill Kenneth Beckett MD Work Phone: [facility] Comment on above: Refill Request Start: 02-19-2025 End: 02-19-2025 ambulatory HANH A SUPPAN Facility:[facility] Start: 02-19-2025 End: 02-19-2025 Office outpatient visit 15 minutes Hanh A Suppan MANAGER DRUG SAFETY.NETWORK DESIGN ARCHITECT Work Phone: [facility] Comment on above: Acute maxillary sinu sitis, recurrence not specified (Primary Dx) Start: 02-12-2025 End: 02-12-2025 ambulatory ROMEL MAS Facility:[facility] Start: 02-12-2025 End: 02-12-2025 Patient encounter procedure Romel Mas Work Phone: Podiatry Comment on above: 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); Foot pain, left; Callus of foot Start: 01-26-2025 End: 01-26-2025 Follow-up encounter Hanh A Suppan MANAGER DRUG SAFETY.NETWORK DESIGN ARCHITECT Work Phone: [facility] Start: 01-22-2025 End: 01-22-2025 Subsequent hospital visit by physician Xr [facility] Work Phone: Radiology Comment on above: Foot pain, left [M79 .672] Start: 01-22-2025 End: 01-22-2025 ambulatory HANH A SUPPAN Facility:[facility] Start: 01-22-2025 End: 01-22-2025 Office outpatient visit 15 minutes Hanh A Suppan MANAGER DRUG SAFETY.NETWORK DESIGN ARCHITECT Work Phone: [facility] Comment on above: Foot pain, left (Aviva teir Dx); Acute maxillary sinusitis, recurrence not specified Start: 01-15-2025 End: 01-15-[address] Ole Moss MD -[facility] Work Phone: Start: 01-15-2025 End: 01-15-2025 ambulatory Kenneth Beckett Facility:[facility] Start: 12-25-2024 End: 12-25-2024 Emergency department patient visit KENNETH BECKETT Facility:[facility] Comment on above: Bursitis of other bu rsa of right knee (Primary Dx) Start: 11-22-2024 End: 11-22-2024 Telephone encounter [facility] Comment on above: Results Start: 11-21-2024 End: 11-21-2024 ambulatory KENNETH BECKETT Facility:[facility] Start: 10-30-2024 End: 10-30-2024 Postop follow up visit related to original px Jhon Garcia PA-C Work Phone: [facility] - [facility] Comment on above: Carpal tunnel syndro me of left wrist (Primary Dx); S/P endoscopic carpal tunnel release; DRUJ (distal radioulnar joint) post-traumatic arthritis, left Start: 10-30-2024 End: 10-30-2024 ambulatory JHON GARCIA [facility] Start: 10-20-2024 End: 10-20-2024 Refill Kenneth Beckett MD Work Phone: [facility] Comment on above: Refill Request S/P carpal tunnel re lease (Primary Dx) Start: 10-12-2024 End: 10-12-2024 ambulatory EDINSON ALANIS [facility] Start: 10-03-2024 End: 10-03-2024 Telephone encounter Edinson Alanis MD Work Phone: [facility] - [facility] Comment on above: Other (FMLA/STD Krishan rwork) Start: 10-02-2024 End: 10-02-2024 ambulatory Rafa Rodriguez PA-C Work Phone: [facility] - [facility] Start: 09-05-2024 End: 09-05-2024 Emergency department patient visit Stephen Kincaid DO Work Phone: [facility] Emergency Department Start: 09-04-2024 End: 09-04-2024 Office outpatient new 30 minutes Edinson Alanis MD Work Phone: [facility] - [facility] Comment on above: Carpal tunnel syndro me of left wrist (Primary Dx); Bilateral wrist pain; DRUJ (distal radioulnar joint) post-traumatic arthritis, left; DRUJ (distal radioulnar joint) post-traumatic arthritis, right; Carpal tunnel syndrome on right Start: 09-04-2024 End: 09-04-2024 ambulatory [facility] Start: 08-06-2024 End: 08-07-2024 Emergency department patient visit AARON GARIBAY Facility:[facility] Start: 05-29-2024 End: 05-29-2024 Subsequent hospital visit by physician Issa [facility] Work Phone: Radiology Comment on above: Acute cough [R05.1] Start: 05-29-2024 End: 05-29-2024 ambulatory VALE IYER Facility:[facility] Start: 05-29-2024 End: 05-29-2024 Patient encounter procedure Vale Iyer MANAGER DRUG SAFETY.NETWORK DESIGN ARCHITECT Work Phone: [facility] Comment on above: Acute cough (Primary Dx); Rhinosinusitis Start: 05-08-2024 Telephone encounter Kenneth Beckett MD Work Phone: [facility] Comment on above: Results Start: 05-02-2024 End: 05-02-2024 amb[facility] Start: 04-12-2024 Telephone encounter Kenneth Beckett MD Work Phone: [facility] Comment on above: Orders Start: 04-01-2024 Emergency department patient visit KENNETH BECKETT Facility:[facility] Start: 03-10-2024 Refill Kenneth Beckett MD Work Phone: [facility] Comment on above: Refill Request Start: 01-10-2024 Refill Kenneth Beckett MD Work Phone: [facility] Comment on above: Refill Request Start: 12-29-2023 Telephone encounter Kenneth Beckett MD Work Phone: [facility] Comment on above: Insurance Authorizat ion (Acyclovir) Start: 12-27-2023 End: 12-27-2023 Subsequent hospital visit by physician Xr [facility] [place] Work Phone: Radiology Comment on above: Bronchitis [J40] Start: 12-27-2023 End: 12-27-2023 Patient encounter procedure Kenneth Beckett MD Work Phone: [facility] Comment on above: Bronchitis (Primary Dx); Paroxysmal atrial fibrillation (HCC); Hyperlipidemia, mixed; Hypertriglyceridemia; Recurrent cold sores Start: 12-27-2023 Telephone encounter Kenneth Beckett MD Work Phone: [facility] Comment on above: Results Start: 12-22-2023 End: 12-22-2023 Patient encounter procedure Vale Iyer MANAGER DRUG SAFETY.NETWORK DESIGN ARCHITECT Work Phone: [facility] Comment on above: Acute otitis media, right (Primary Dx); URI, acute Start: 12-21-2023 Telephone encounter Lauren Mckenzie APRN.NETWORK DESIGN ARCHITECT Work Phone: [facility] Comment on above: Results Start: 12-20-2023 End: 12-20-2023 Patient encounter procedure Lauren Mckenzie MANAGER DRUG SAFETY.NETWORK DESIGN ARCHITECT Work Phone: [facility] Comment on above: URI, acute (Primary Dx); Acute cough Start: 12-20-2023 End: 12-20-2023 Subsequent hospital visit by physician Xr [facility] [place] Work Phone: Radiology Comment on above: Acute cough [R05.1] Start: 12-02-2023 Telephone encounter Kenneth Beckett MD Work Phone: Pulmonology [facility] Comment on above: Results Start: 12-01-2023 End: 12-01-2023 Subsequent hospital visit by physician Xr [facility] [place] Work Phone: Radiology Comment on above: Acute pain of left s houlder [M25.512] Start: 09-28-2023 Refill Kenneth Beckett MD Work Phone: [facility] Comment on above: Refill Request Start: 08-16-2023 Chart abstracting Kenneth Jefferson MD Work Phone: [facility] Start: 07-26-2023 Telephone encounter Kenneth Beckett MD Work Phone: [facility] Comment on above: Results Start: 07-19-2023 End: 07-19-2023 Orders Only Vale Iyer MANAGER DRUG SAFETY.NETWORK DESIGN ARCHITECT Work Phone: [facility] Comment on above: Leg pain, left (Prim alex Dx) Results Leg pain, left [M79. 605] Left leg swelling [M 79.89] Start: 07-16-2023 Telephone encounter Kenneth Beckett MD Work Phone: [facility] Comment on above: Orders Start: 07-07-2023 End: 07-07-2023 Patient encounter procedure Aly Antonio GORDO.NETWORK DESIGN ARCHITECT Work Phone: [facility] Comment on above: Viral syndrome (Prim alex Dx); Sore throat Start: 04-06-2023 Refill Kenneth Beckett MD Work Phone: [facility] Comment on above: Refill Request Start: 02-17-2023 End: 02-17-2023 Nursing evaluation of patient and report Mi Nurse Work Phone: [facility] Comment on above: Screening-pulmonary TB (Primary Dx) Start: 02-15-2023 End: 02-15-2023 Nursing evaluation of patient and report Mi Nurse Work Phone: [facility] Comment on above: Screening-pulmonary TB (Primary Dx) Start: 02-03-2023 Telephone encounter Kenneth Beckett MD Work Phone: [facility] Comment on above: Orders Start: 01-21-2023 Refill Kenneth Beckett MD Work Phone: [facility] Comment on above: Refill Request Start: 12-28-2022 End: 12-28-2022 ambulatory [facility]m [facility] Work Phone: [facility] Comment on above: Spirometry Start: 12-28-2022 End: 12-28-2022 Patient encounter procedure [facility] Work Phone: [facility] Start: 12-16-2022 End: 12-16-2022 Subsequent hospital visit by physician Xr [facility] [place] Work Phone: Radiology Comment on above: SOB (shortness of br eath) [R06.02] Start: 12-16-2022 End: 12-16-2022 Patient encounter procedure Kenneth Beckett MD Work Phone: [facility] Comment on above: SOB (shortness of br eath) (Primary Dx); Paroxysmal atrial fibrillation (HCC); Anxiety and depression Start: 11-18-2022 End: 11-18-2022 Patient encounter procedure Shama Mary APRN.NETWORK DESIGN ARCHITECT Work Phone: [facility] Comment on above: Anxiety and depressi on (Primary Dx) Start: 10-31-2022 End: 10-31-2022 Patient encounter procedure Mariia Carroll APRN.NETWORK DESIGN ARCHITECT Work Phone: [facility] Comment on above: 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) Start: 09-08-2022 End: 09-08-2022 Office outpatient visit 15 minutes Yennifer Worrell APRN.NETWORK DESIGN ARCHITECT Work Phone: [facility] Comment on above: Sinobronchitis (Prim alex Dx); Bronchitis Start: 09-08-2022 ambulatory Yennifer Worrell APRN.NETWORK DESIGN ARCHITECT Work Phone: [facility] Comment on above: Fatigue; Body aches Start: 08-11-2022 End: 08-11-2022 Subsequent hospital visit by physician Xr [facility] Work Phone: Radiology Comment on above: Foot pain, left [M79 .672] Start: 08-11-2022 End: 08-11-2022 Patient encounter procedure Becki Riggins APRN.NETWORK DESIGN ARCHITECT Work Phone: [facility] Comment on above: Foot pain, left (Aviva teri Dx) Start: 07-02-2022 Patient encounter status Mika Beckett MD Work Phone: [facility] Start: 07-02-2022 Telephone encounter Kenneth Beckett MD Work Phone: [facility] Comment on above: Orders Start: 05-25-2022 End: 05-25-2022 Patient encounter procedure Aly Antonio GORDO.NETWORK DESIGN ARCHITECT Work Phone: [facility] Comment on above: Skin infection (Prim alex Dx) Start: 01-08-2022 End: 01-08-2022 Subsequent hospital visit by physician Xr [facility] Work Phone: Radiology Comment on above: Cough [R05.9] Start: 12-10-2021 End: 12-10-2021 Subsequent hospital visit by physician Xr [facility] [employer] Work Phone: Radiology Comment on above: SOB (shortness of br eath) [R06.02] Start: 12-01-2021 End: 12-01-2021 Subsequent hospital visit by physician Xr [facility] [employer] Work Phone: Radiology Comment on above: COVID-19 [U07.1] Start: 06-05-2021 End: 06-09-[address] [facility] Start: 05-29-2021 End: 06-02-[address] [facility] Start: 04-02-2021 End: 04-02-2021 Subsequent hospital visit by physician Xr [facility] Work Phone: Radiology Comment on above: Foot pain, left [M79 .672] Start: 06-01-2017 Orders Only Ritchie york MD Work Phone: [facility]ointment Center Comment on above: Screening for colon cancer (Primary Dx) Procedures Date Procedure Procedure Detail Performing Clinician Start: 04-30-[address] Kenneth Beckett MD Work Phone: Start: 04-30-2025 Plain chest X-ray Dr. Kenneth Beckett MD Work Phone: Start: 04-23-2025 Lipid 1996 panel - Serum or Plasma Yennifer Worrell APRN.NETWORK DESIGN ARCHITECT Work Phone: Start: 01-15-2025 Evaluation of diagnostic study results Dr. Kenneth Beckett MD Work Phone: Start: 12-25-2024 Radiologic examination knee 1/2 views Chandrika Bridges PA-C Work Phone: Start: 05-29-2024 Radiologic exam chest 2 views Vale Iyer MANAGER DRUG SAFETY.NETWORK DESIGN ARCHITECT Work Phone: Start: 05-02-2024 Lipid 1996 panel - Serum or Plasma Kenneth Beckett MD Work Phone: Start: 12-27-2023 Radiologic exam chest 2 views Kenneth Beckett MD Work Phone: Start: 12-20-2023 Radiologic exam chest 2 views Lauren Mckenzie MANAGER DRUG SAFETY.NETWORK DESIGN ARCHITECT Work Phone: Start: 12-01-2023 Radex shoulder complete minimum 2 views Kenneth Beckett MD Work Phone: Start: 07-26-2023 Lipid 1996 panel - Serum or Plasma Kenneth Beckett MD Work Phone: Start: 07-19-2023 Radex fingr minimum 2 views Pam Verdugo PA-C Work Phone: Start: 07-19-2023 Dup-scan xtr veins unilateral/limited study Vale Iyer MANAGER DRUG SAFETY.NETWORK DESIGN ARCHITECT Work Phone: Start: 07-07-2023 COVID & INFLUENZA A/B NAAT, ROUTINE Aly 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 Work Phone: Start: 07-07-2023 STREP A MOLECULAR (POC) Vale PETER RN.NETWORK DESIGN ARCHITECT Work Phone: Start: 12-28-2022 Brncdilat rspse spmtry pre&post-brncdilat admn Kenneth Beckett MD Work Phone: Start: 12-16-2022 Radiologic exam chest 2 views Kenneth Beckett MD Work Phone: Start: 08-11-2022 Radex foot complete minimum 3 views Becki Riggins MANAGER DRUG SAFETY.NETWORK DESIGN ARCHITECT Work Phone: Start: 01-08-2022 Radiologic exam chest 2 views Kenneth Beckett MD Work Phone: Start: 12-10-2021 Radiologic exam chest 2 views Lauren Mckenzie APRN.NETWORK DESIGN ARCHITECT Work Phone: Start: 12-01-2021 Radiologic exam chest 2 views Leeanna Morales PAJameeC Work Phone: Start: 09-29-2021 Colonoscopy Aly Antonio APRN.[employer] Work Phone: Start: 04-02-2021 Radex foot complete minimum 3 views Kenneth Beckett MD Work Phone: Start: 04-02-2021 Adult depression screening assessment Aly Antonio APRN.NETWORK DESIGN ARCHITECT Work Phone: History of decompres sherrie of median nerve S/P carpal tunnel release dEinson Alanis MD Work Phone: History of decompres sherrie of median nerve S/P endoscopic carpal tunnel release Jhon Garcia PA-C Work Phone: Plan of Treatment Date Care Activity Detail Author Start: 2037 RSV Vaccine (1 - 1-dose 75+ series) RSV Vaccine (1 - 1-dose 75+ series) [facility] Start: 08-14-2033 DTaP/Tdap/Td Vaccines (4 - Td or Tdap) DTaP/Tdap/Td Vaccines (4 - Td or Tdap) [facility] Start: 08-14-2033 Tetanus vaccination [facility] Start: 08-14-2033 Urine microalbumin profile DTaP,Tdap,Td Vaccine (4 - Td or Tdap) [facility] Start: 09-29-2031 Screening for malignant neoplasm of colon [facility] Start: 04-23-2030 Lipid panel Lipid Screening [facility] Start: 07-13-2029 Urine microalbumin profile [facility] Start: 05-02-2029 Lipid panel Lipid Screening [facility] Start: 07-26-2028 Lipid 1996 panel - Serum or Plasma Lipid Screening [facility] Start: 07-26-2028 Lipid panel Lipid Screening [facility] Start: 07-26-2028 Prostate Cancer Screening Discussion Prostate Cancer Screening Discussion [facility] Start: 07-26-2028 Prostate specific antigen measurement Prostate Cancer Screening Discussion [facility] Start: 04-23-2028 Diabetes Screening Diabetes Screening [facility] Start: 07-22-2027 LIPID SCREEN LIPID SCREEN [facility] Start: 12-13-2026 Diabetes Screening Diabetes Screening [facility] Start: 07-26-2026 Diabetes Screening Diabetes Screening [facility] Start: 04-23-2026 Covid-19 Vaccine ( season) Covid-19 Vaccine ( season) [facility] Comment on above: Postponed from 07/09/2024 (Declined at t his time) Start: 04-23-2026 HIV screening HIV Screening [facility] Comment on above: Postponed from 1980 (Declined at t his time) Start: 04-23-2026 Pneumococcal Vaccine: 50+ (1 of 1 - PCV) Pneumococcal Vaccine: 50+ (1 of 1 - PCV) [facility] Comment on above: Postponed from 2012 (Declined at t his time) Start: 04-23-2026 Shingrix Vaccine (1 of 2) Shingrix Vaccine (1 of 2) [facility] Comment on above: Postponed from 2012 (Declined at t his time) Start: 04-01-2026 LIPID SCREEN LIPID SCREEN [facility] Start: 12-16-2025 DIABETES SCREEN DIABETES SCREEN [facility] Start: 09-08-2025 DIABETES SCREEN DIABETES SCREEN [facility] Start: 07-22-2025 DIABETES SCREEN DIABETES SCREEN [facility] Start: 07-09-2025 Influenza vaccination Influenza Vaccine (Season Ended) [facility] Start: 05-02-2025 Evaluation of diagnostic study results [facility] Start: 04-30-2025 [facility] Start: 04-23-2025 End: 07-23-2025 CBC W Auto Differential panel - Blood [facility] Comment on above: Expected: 04/23/2025, Expires: Start: 04-23-2025 End: 07-23-2025 Comprehensive metabolic 2000 panel - Serum or Plasma [facility] Comment on above: Expected: 04/23/2025, Expires: Start: 04-23-2025 End: 07-23-2025 Lipid 1996 panel - Serum or Plasma [facility] Work Phone: Comment on above: Expected: 04/23/2025, Expires: Start: 02-12-2025 End: 02-12-2025 Patient encounter procedure Podiatry Comment on above: Foot pain, left [M79.672] Start: 02-05-2025 End: 02-05-2025 Patient encounter procedure 02/05/2025 10:00 AM EDT Office Visit [facility] [address] [place] [address] Hanh Sharma APRN.NETWORK DESIGN ARCHITECT [address] [place] [address] 2 week f/u sinusitis [facility] Comment on above: 2 week f/u sinusitis Start: 01-08-2025 DIABETES SCREEN DIABETES SCREEN [facility] Start: 10-30-2024 End: 10-30-2024 Patient encounter procedure [facility] - David Trevino Start: 10-20-2024 End: 10-20-2024 Admission to same day surgery center [facility] Comment on above: ENDOSCOPIC LEFT CARPAL TUNNEL RELEASE, L EFT ULNOCARPAL JOINT INJECTION [26390 (CPT )] Start: 10-20-2024 End: 10-20-2024 Anesthesia consultation 10/20/2024 2:15 PM EST Anesthesia Event [facility] [address] [place] [id number] Morena Marmolejo, MANAGER DRUG SAFETY - NETWORK DESIGN ARCHITECT [address] [place] [address] [place] [id number] [facility] MAIN OR Start: 10-20-2024 End: 10-20-2024 Arthrocentesis aspir&/inj interm jt/burs w/o us [facility] Operating Room Start: 10-20-2024 End: 10-20-2024 Ndsc wrst surg w/rls transvrs carpl ligm [facility] Operating Room Start: 10-20-2024 Subsequent hospital visit by physician [facility] Start: 10-20-2024 End: 10-20-2024 Arthrocentesis aspir&/inj interm jt/burs w/o us ARTHROCENTESIS ASPIRATION AND/OR INJECTION INTERMEDIATE JOINT OR BURSA Pain in right wrist Pain in left wrist Carpal tunnel syndrome, left upper limb Post-traumatic osteoarthritis, left wrist Post-traumatic osteoarthritis, right wrist Carpal tunnel syndrome, right upper limb 10/20/2024 11:43 AM EST [facility] Operating Room Start: 10-20-2024 End: 10-20-2024 Ndsc wrst surg w/rls transvrs carpl ligm ENDOSCOPIC RELEASE CARPAL TUNNEL Pain in right wrist Pain in left wrist Carpal tunnel syndrome, left upper limb Post-traumatic osteoarthritis, left wrist Post-traumatic osteoarthritis, right wrist Carpal tunnel syndrome, right upper limb 10/20/2024 11:43 AM EST [facility] Operating Room Start: 10-12-2024 End: 10-12-2024 Admission to establishment 10/12/2024 2:00 PM EST Pre-Admission Testing [facility]Ad[facility] Testing [address] [place] [id number] [phone] [facility] Start: 09-29-2024 Colonoscopy COLONOSCOPY [facility] Start: 09-29-2024 COLORECTAL CANCER SCREENING COLORECTAL CANCER SCREENING [facility] Start: 09-29-2024 Screening for malignant neoplasm of colon [facility] Start: 08-11-2024 HIV Screening HIV Screening [facility] Comment on above: Postponed from 1980 (Declined at t his time) Start: 08-11-2024 HIV screening HIV Screening [facility] Comment on above: Postponed from 1980 (Declined at t his time) Start: 08-09-2024 Covid-19 Vaccine () Covid-19 Vaccine () [facility] Comment on above: Postponed from 07/09/2023 (Declined at t his time) Start: 08-09-2024 Covid-19 Vaccine (2 - Booster for Garrett series) Covid-19 Vaccine (2 - Booster for Garrett series) [facility] Comment on above: Postponed from 06/11/2021 (Declined at t his time) Start: 08-09-2024 Shingrix Vaccine (1 of 2) Shingrix Vaccine (1 of 2) [facility] Comment on above: Postponed from 2012 (Declined at t his time) Start: 07-09-2024 COVID-19 VACCINE ( season) COVID-19 VACCINE ( season) [facility] Start: 07-09-2024 COVID-19 Vaccine ( season) COVID-19 Vaccine () [facility] Start: 07-09-2024 Covid-19 Vaccine () Covid-19 Vaccine () [facility] Start: 07-09-2024 Covid-19 Vaccine () Covid-19 Vaccine () [facility] Start: 07-09-2024 Influenza vaccination [facility] Start: 05-15-2024 PROSTATE CANCER SCREENING DISCUSSION PROSTATE CANCER SCREENING DISCUSSION [facility] Start: 05-07-2024 Influenza vaccination [facility] Comment on above: Postponed from 07/09/2023 (Declined at t his time) Start: 04-12-2024 End: 07-12-2024 Lipid 1996 panel - Serum or Plasma LIPID PANEL BASIC Lab Routine Hyperlipidemia, mixed Expected: 04/12/2024, Expires: 07/12/2024 [facility] Work Phone: Comment on above: Expected: 04/12/2024, Expires: 4 Start: 12-27-2023 End: 03-27-2024 Basic metabolic 2000 panel - Serum or Plasma BASIC METABOLIC PNL Lab Routine Bronchitis Expected: 12/27/2023, Expires: 03/27/2024 [facility] Work Phone: Comment on above: Expected: 12/27/2023, Expires: Start: 12-27-2023 End: 03-27-2024 CBC W Auto Differential panel - Blood CBC + DIFF Lab Routine Bronchitis Expected: 12/27/2023, Expires: 03/27/2024 [facility] Work Phone: Comment on above: Expected: 12/27/2023, Expires: 4 Start: 12-20-2023 End: 01-03-2024 COVID & INFLUENZA A/B & RSV NAAT, ROUTINE [facility] Work Phone: Comment on above: Expected: 12/20/2023, Expires: 4 Start: 07-17-2023 End: 09-16-2023 Basic metabolic 2000 panel - Serum or Plasma BASIC METABOLIC PNL Lab Routine Paroxysmal atrial fibrillation (HCC) Anxiety and depression Expected: 07/17/2023, Expires: 09/16/2023 [facility] Work Phone: Comment on above: Expected: 07/17/2023, Expires: 3 Start: 07-17-2023 End: 09-16-2023 CBC panel - Blood by Automated count CBC Lab Routine Paroxysmal atrial fibrillation (HCC) Anxiety and depression Expected: 07/17/2023, Expires: 09/16/2023 [facility] Work Phone: Comment on above: Expected: 07/17/2023, Expires: 3 Start: 07-17-2023 End: 09-16-2023 Lipid 1996 panel - Serum or Plasma LIPID PANEL BASIC Lab Routine Paroxysmal atrial fibrillation (HCC) Hyperlipidemia, mixed Hypertriglyceridemia Expected: 07/17/2023, Expires: 09/16/2023 [facility] Work Phone: Comment on above: Expected: 07/17/2023, Expires: 3 Start: 07-17-2023 End: 09-16-2023 PSA/PROSTSPECAG SCRN PSA/PROSTSPECAG SCRN Lab Routine Screening for prostate cancer Expected: 07/17/2023, Expires: 09/16/2023 [facility] Work Phone: Comment on above: Expected: 07/17/2023, Expires: 3 Start: 07-09-2023 Influenza vaccination [facility] Start: 12-16-2022 End: 02-15-2023 CBC W Auto Differential panel - Blood [facility] Work Phone: Comment on above: Expected: 12/16/2022, Expires: 3 Start: 12-16-2022 End: 02-15-2023 Comprehensive metabolic 2000 panel - Serum or Plasma [facility] Work Phone: Comment on above: Expected: 12/16/2022, Expires: 3 Start: 12-16-2022 End: 02-15-2023 Thyrotropin [Units/volume] in Serum or Plasma [facility] Work Phone: Comment on above: Expected: 12/16/2022, Expires: 3 Start: 2022 RSV High Risk: (Elderly (60+) or Population) (1 - Risk 60-74 years 1-dose series) RSV High Risk: (Elderly (60+) or Population) (1 - Risk 60-74 years 1-dose series) [facility] Start: 2022 RSV Immunization for Adults (1 - Risk 60-74 years 1-dose series) RSV Immunization for Adults (1 - Risk 60-74 years 1-dose series) [facility] Start: 2022 RSV Vaccine (1 - 1-dose 60+ series) RSV Vaccine (1 - 1-dose 60+ series) [facility] Start: 11-08-2022 DEPRESSION ASSESSMENT DEPRESSION ASSESSMENT [facility] Start: 09-29-2022 Screening for malignant neoplasm of colon COLORECTAL CANCER SCREENING [facility] Start: 09-08-2022 End: 11-08-2022 CBC W Auto Differential panel - Blood [facility] Work Phone: Comment on above: Expected: 09/08/2022, Expires: 3 Start: 09-08-2022 End: 11-08-2022 Comprehensive metabolic 2000 panel - Serum or Plasma [facility] Work Phone: Comment on above: Expected: 09/08/2022, Expires: 3 Start: 08-11-2022 End: 10-11-2022 Urate [Mass/volume] in Serum or Plasma URIC ACID BLOOD Lab Routine Foot pain, left Expected: 08/11/2022, Expires: 10/11/2022 [facility] Work Phone: Comment on above: Expected: 08/11/2022, Expires: 2 Start: 07-09-2022 Influenza vaccination INFLUENZA (#1) [facility] Start: 07-03-2022 End: 09-02-2022 CBC W Auto Differential panel - Blood CBC + DIFF Lab Routine Well adult exam Expected: 07/03/2022, Expires: 09/02/2022 [facility] Work Phone: Comment on above: Expected: 07/03/2022, Expires: 2 Start: 07-03-2022 End: 09-02-2022 Comprehensive metabolic 2000 panel - Serum or Plasma COMP METABOLIC PANEL Lab Routine Well adult exam Expected: 07/03/2022, Expires: 09/02/2022 [facility] Work Phone: Comment on above: Expected: 07/03/2022, Expires: 2 Start: 07-03-2022 End: 09-02-2022 Lipid 1996 panel - Serum or Plasma LIPID PANEL BASIC Lab Routine Well adult exam Expected: 07/03/2022, Expires: 09/02/2022 [facility] Work Phone: Comment on above: Expected: 07/03/2022, Expires: 2 Start: 04-02-2022 Adult depression screening assessment DEPRESSION SCREENING [facility] Start: 11-08-2021 DEPRESSION ASSESSMENT DEPRESSION ASSESSMENT [facility] Start: 06-11-2021 COVID-19 VACCINE (2 - Booster for Garrett series) COVID-19 VACCINE (2 - Booster for Garrett series) [facility] Start: 2012 Pneumococcal vaccination Pneumococcal Vaccine (1 of 1 - PCV) [facility] Start: 2012 Pneumococcal Vaccine: 50+ (1 of 1 - PCV) Pneumococcal Vaccine: 50+ (1 of 1 - PCV) [facility] Start: 2012 Pneumococcal Vaccine: 50+ Years (1 of 1 - PCV) Pneumococcal Vaccine: 50+ Years (1 of 1 - PCV) [facility] Start: 2012 Prostate specific antigen measurement PROSTATE CANCER SCREENING DISCUSSION [facility] Start: 2012 SHINGRIX VACCINE (1 of 2) SHINGRIX VACCINE (1 of 2) [facility] Start: 2012 Zoster vaccine hzv live for subcutaneous use ZOSTER (SHINGLES) VACCINE (1 of 2) [facility] Start: 2012 Zoster Vaccines (1 of 2) Zoster Vaccines (1 of 2) [facility] Start: 2007 COLOGUARD (FIT-DNA) COLOGUARD (FIT-DNA) [facility] Start: [address] COLONOGRAPHY [facility] Start: 2007 FECAL OCCULT BLOOD FECAL OCCULT BLOOD [facility] Start: 2007 Screening for malignant neoplasm of colon [facility] Start: 2007 SIGMOIDOSCOPY SIGMOIDOSCOPY [facility] Start: 2002 Lipid panel LIPID SCREENING [facility] Start: 1980 Diabetes mellitus screening Diabetes Screening [facility] Start: 1980 Hepatitis C screening Hepatitis C Screening [facility] Start: 1980 HIV SCREENING HIV SCREENING [facility] Start: 1980 HIV screening HIV Screening [facility] Start: 1977 HIV screening HIV SCREENING DISCUSSION [facility] Start: 1974 Depression Monitoring Depression Monitoring [facility] Start: 1963 MMR Vaccines (1 of 1 - Standard series) MMR Vaccines (1 of 1 - Standard series) [facility] Start: 1962 Hepatitis C screening HEPATITIS C VIRUS SCREENING [facility] Start: 1962 HIV screening HIV Screening [facility] Start: 1962 Lipid panel Lipid Panel [facility] Start: 1962 Screening for malignant neoplasm of colon [facility] Start: 1962 Yearly Adult Physical Yearly Adult Physical [facility] End: 12-16-2023 ECG COMPLETE ECG COMPLETE ECG Routine SOB (shortness of breath) 1 Occurrences starting 12/16/2022 until 12/16/2023 [facility] Work Phone: Comment on above: 1 Occurrences starting 12/16/2022 until 12/16/2023 ECG COMPLETE ECG COMPLETE ECG Routine Paroxysmal atrial fibrillation (HCC) Ordered: 04/30/2025 [facility] Work Phone: Comment on above: Ordered: 04/30/2025 End: 01-15-2024 LUNG DIFFUSION CAPACITY (DLCO) LUNG DIFFUSION CAPACITY (DLCO) PFT Routine SOB (shortness of breath) 1 Occurrences starting 12/16/2022 until 01/15/2024 [facility] Work Phone: Comment on above: 1 Occurrences starting 12/16/2022 until 01/15/2024 End: 01-15-2024 LUNG VOLUMES LUNG VOLUMES PFT Routine SOB (shortness of breath) 1 Occurrences starting 12/16/2022 until 01/15/2024 [facility] Work Phone: Comment on above: 1 Occurrences starting 12/16/2022 until 01/15/2024 Patient Education ED AFIB [facility] Work Phone: Patient referral [facility] Work Phone: PPD (TB INTRADERMAL 57650) B/O PPD (TB INTRADERMAL 24231) B/O Procedures Routine Screening-pulmonary TB Ordered: 02/03/2023 [facility] Work Phone: Comment on above: Ordered: 02/03/2023 End: 01-15-2024 Radiologic exam chest 2 views XR CHEST 2V FRONTAL/LAT Radiology Routine SOB (shortness of breath) 1 Occurrences starting 12/16/2022 until 01/15/2024 [facility] Work Phone: Comment on above: 1 Occurrences starting 12/16/2022 until 01/15/2024 Radiologic exam ches t 2 views XR CHEST 2V FRONTAL/LAT Radiology Routine SOB (shortness of breath) 12/16/2022 4:16 PM EST [facility] Work Phone: End: 01-15-2024 SPIROMETRY - BASELINE AND POST DILATOR SPIROMETRY - BASELINE AND POST DILATOR PFT Routine SOB (shortness of breath) 1 Occurrences starting 12/16/2022 until 01/15/2024 [facility] Work Phone: Comment on above: 1 Occurrences starting 12/16/2022 until 01/15/2024 SPIROMETRY - BASELIN E AND POST DILATOR SPIROMETRY - BASELINE AND POST DILATOR PFT Routine SOB (shortness of breath) 12/28/2022 8:52 AM EST [facility] Work Phone: Thyroid stimulating hormone measurement [facility] End: 02-21-2026 XR Foot - left AP and Lateral and oblique XR FOOT GENERAL 3V AP/LAT/OBL LEFT Radiology Routine Foot pain, left 1 Occurrences starting 01/22/2025 until 02/21/2026 [facility] Work Phone: Comment on above: 1 Occurrences starting 01/22/2025 until 02/21/2026 XR Foot - left AP an d Lateral and oblique XR FOOT GENERAL 3V AP/LAT/OBL LEFT Radiology Routine Foot pain, left 01/22/2025 3:04 PM EDT [facility] Immunizations Immunization Date Immunization Notes Care Provider [place] 08-14-2023 tetanus toxoid, redu alden diphtheria toxoid, and acellular pertussis vaccine, adsorbed Kenneth Beckett MD Work Phone: [facility] 02-15-2023 tuberculin skin test ; purified protein derivative solution, intradermal [facility] [place] Work Phone: [facility] 07-13-2019 tetanus toxoid, redu alden diphtheria toxoid, and acellular pertussis vaccine, adsorbed Aly 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 Work Phone: [facility] Work Phone: 03-13-2019 tuberculin skin test ; purified protein derivative solution, intradermal [facility] [place] Work Phone: [facility] 07-21-2018 influenza virus vaccine, unspecified formulation Kenneth Beckett MD Work Phone: [facility] 11-08-2015 tetanus toxoid, redu alden diphtheria toxoid, and acellular pertussis vaccine, adsorbed Becki Riggins MANAGER DRUG SAFETY.NETWORK DESIGN ARCHITECT Work Phone: [facility] 02-17-2003 tetanus and diphther ia toxoids, adsorbed, preservative free, for adult use (2 Lf of tetanus toxoid and 2 Lf of diphtheria toxoid) Aly Antonio APRN.[facility] Work Phone: [facility] Work Phone: Payers Date Payer Category Payer Self-pay [id number] 2024 Unknown [facility] SELF INSURED OR GENERIC CO[employer] [facility] SELF INSURED EMPLOYER OR GENERIC [employer] [id number] 2024-Present [phone] [address] [address] [place] [address] [id number] 2024 Unknown [id number] 2019 Commercial Managed C are - HMO [id number] 2019 Managed Care (Private) [facility] [id number] 2007 Private Health Insurance [facility] [employer] [id number] 2007-Present [phone] [address] [place] [address] HMO [id number] 2007 Private Health Insurance [id number] 2007 Private Health Insurance [id number] 1960 Unknown [id number] 1962 Unknown [id number] Unknown [id number] Unknown [id number] Unknown [id number] Unknown [id number] Social History Date Type Detail Facility Start: 07-23-2022 End: 04-30-2025 Tobacco smoking status NHIS Never smoked tobacco [facility] Start: 05-25-2022 End: 04-30-2025 Alcohol intake Current drinker of alcohol (finding) [facility] Start: 07-27-2017 History SDOH Alcohol Comment occasional [facility] Start: 1960 Sex Assigned At Not on file [facility] Start: 03-03-2021 End: 12-25-2024 Exposure to SARS-CoV-2 (event) Not sure [facility] Work Phone: Start: 07-23-2022 End: 09-04-2024 Tobacco use and exposure Smokeless tobacco non-user [facility] Start: 04-13-2017 Alcohol intake Current non-dr audio visual aids director of alcohol (finding) [facility] Start: 07-07-2023 End: 04-02-2024 History of Social function [facility] Start: 07-07-2023 End: 04-02-2024 Tobacco use panel [facility] Adult Depression Screening Assessment 2 [facility] Start: 11-10-2021 End: 12-10-2021 Exposure to SARS-CoV-2 (event) Yes [facility] Start: 08-22-2024 Sex Male (finding) [facility] Start: 09-05-2024 Alcoholic beverage intake Lifetime non-drinker (finding) [facility] Start: 10-12-2024 Alcohol Comment rarely [facility] Tobacco smoking status NHIS Tobacco smoking consumption unknown [facility] Work Phone: Start: 12-06-2019 Alcohol Alcohol [facility] Start: 12-06-2019 Lives Lives [facility] Start: 12-06-2019 Tobacco Use Tobacco Use [facility] Start: 1960 Sex Assigned At Male W [facility] NEGATED: Highlighted rowStart: NINF History of tobacco use Passive smoker [facility] Procedure Code Equipment Code Equipment Original Text Equipment Identifier Dates Total cholecystectomy with exploration of common bile duct CLIP,DAVIDE MARTINEZ FDA Start: 06-20-2019 Total cholecystectomy with exploration of common bile duct CLIP,KINZALETHA CASTILLO ASHLEYLETHA FDA Start: 06-20-2019 Functional Status Date Assessment Result Facility 04-10-2015 Are you deaf, or do you have serious difficulty hearing No 04/10/2015 3:53 PM EDT Morena Grant MA No [facility] 04-10-2015 Are you blind, or do you have serious difficulty seeing, even when wearing glasses No 04/10/2015 3:53 PM EDT Morena Grant MA No [facility] 04-10-2015 Do you have serious difficulty walking or climbing stairs No 04/10/2015 3:53 PM EDT Morena Grant MA No [facility] 04-10-2015 Do you have difficul ty dressing or bathing No 04/10/2015 3:53 PM EDT Morena Grant MA [facility] 04-10-2015 Because of a physica l, mental, or emotional condition, do you have difficulty doing errands alone such as visiting a physician's office or shopping No 04/10/2015 3:53 PM EDT Morena Grant MA [facility] Mental Status Date Assessment Result Facility 04-30-2025 Cognitive function Level Of Cons ciousness Awake;Alert;Appropriate;Fol lows Commands [facility] Work Phone: 04-10-2015 Because of a physica l, mental, or emotional condition, do you have serious difficulty concentrating, remembering, or making decisions No 04/10/2015 3:53 PM EDT Morena Grant MA No [facility] Clinical Notes 06-01-2017 to 04-30-2025 Yennifer Worrell APRN.NETWORK DESIGN ARCHITECT - 04/30/2025 2:55 PM EDT Note Date & Type Note Facility 04-30-2025 Discharge summary [facility] 04-30-2025 Radiology Diagnostic study note [facility] Imaging Services [address] [place] [address] Chest 1 View (Portable) MR#: [id number] Acct: [id number] Name: ROBERTO DE LA CRUZ Rep #: [id number] : 1960 M 64 From: Bernadette Lee MD PCP: Dr. Kenneth Beckett MD Status: REG E R Study:Chest 1 View (Portable) Date of Exam: 04/30/25 Exam# [id number] Ordering Dr: Lee Jaeger MD PROCEDURE: CHEST 1 VIEW (PORTABLE) 04/30/2025 REASON FOR EXAM: DYSRHYTHMIA TECHNIQUE: Frontal view of the chest. COMPARISON: 12/06/2019 FINDINGS: No focal consolidation. No pleural effusion or pneumothorax. Cardiac silhouette is within normal limits. RAD/Chest 1 View (Portable) IMPRESSION: No focal consolidations. Reading Location: [facility] CC: Dr. Lee Jaeger MD; Dr. Kenneth Beckett MD ~ Photoflash Powder Mixer: Signed [facility] 04-30-2025 Note HNO ID: [id number] Author: YENNIFER WORRELL APRN.NETWORK DESIGN ARCHITECT Service: ? Author Type: Nurse Practitioner Type: Progress Notes Filed: 04/30/2025 15:03 Note Text: This is a 64 year old male who presents today with: Roberto De La Cruz is a 64-year-old male presenting with dizziness, fatigue, and sinus congestion. HISTORY OF PRESENT ILLNESS: Dizziness and Fatigue: - Onset: Yesterday around 12:00-13:00. - Occurred while doing yard work; felt lightheaded and had to sit down. - Drank water and rested; symptoms recurred when resuming activity. - Denies chest pain, palpitations, or feeling like he was going to pass out. - Denies SOB. - Denies dizziness when changing positions from lying to standing; experienced dizziness when bending over. - Denies hematochezia or melena. - Describes himself as a little on the impatient side. Sinus Congestion: - Persistent sinus congestion; treated by [facility] in January and February. - Coughing has resolved; denies taking any current medication for sinus issues. Diarrhea: - Experienced diarrhea starting Wednesday evening, continuing into Wednesday, then resolved. - Drank a lot of water on Wednesday. Paroxysmal A. Fib: Hx of A.fib -- last episode 5 years ago. He was anticoagulated X 1 month and then cardioverted. Follows w/ [facility]. PAST MEDICAL HISTORY: PAST MEDICAL HISTORY Diagnosis Date A-fib (HCC) 04/2020 PAST SURGICAL HISTORY Procedure Laterality Date COLONOSCOPY FLX DX W/COLLJ SPEC WHEN PFRMD 11/27/2016 Colonoscopy LAPAROSCOPIC CHOLECYSTECTOMY 06/20/2019 Dr. Gagan Richardson PAST SURGICAL HISTORY OF finger surgery x 2 TONSILLECTOMY PRIMARY/SECONDARY Tonsillectomy and adnoids VENOUS EXTREMITY UNILATERAL 10/08/2021 US neg DVT left lower leg ALLERGIES Iodinated Contrast Media MEDICATIONS Current Outpatient Medications Medication Sig sertraline (ZOLOFT) 50 mg tablet Take 1 tablet by mouth once daily. No current facility-administered medications for this visit. FAMILY HISTORY Problem Relation Age of Onset Alzheimer's Disease Mother Cancer Father brain tumor ,lung removed and kidney removed COPD Brother Osteoporosis Paternal Grandfather Alzheimer's Disease Sister Social History Tobacco Use Smoking status: Never Smokeless tobacco: Never Vaping Use Vaping status: Never Used Substance Use Topics Alcohol use: Yes Comment: occasional Drug use: No REVIEW OF SYSTEMS Constitutional: (+) fatigue, (+) diaphoresis Ears/Nose/Mouth/Throat: (+) nasal congestion Cardiovascular: (-) chest pain, (-) palpitations Respiratory: (+) lung pain, (-) shortness of breath Gastrointestinal: (-) nausea, (-) hematochezia, (-) melena Neurological: (+) dizziness, (-) syncope EXAM: BP (!) 95/47 Pulse (!) 127 Temp 36.7 ?C (98 ?F) Resp 16 SpO2 98% PHYSICAL EXAM: General Appearance: Well appearing, alert, in no acute distress, well-hydrated, well nourished.. Skin: Skin color, texture, turgor normal, no suspicious rashes or lesions. Head: Normocephalic, no masses, lesions, tenderness or abnormalities. Eyes: Anicteric sclera. Extraocular movements are intact. . Ears: External ears normal, canals clear, Positive findings: R TM: air/fluid interface visualized, L TM: air/fluid interface visualized. Oropharynx: Lips, mucosa, and tongue normal, teeth and gums normal, oropharynx normal. Neck: Supple, no adenopathy Lungs: Lungs clear to auscultation. No wheezing, rhonchi, rales.. Heart: Positive findings: irregularly irregular rhythm. Tachycardic. Extremities: No deformities, edema, skin discoloration, clubbing or cyanosis. Good capillary refill. . Neurologic: Gait normal. ASSESSMENT/PLAN 1. Paroxysmal atrial fibrillation (HCC) (I48.0) EKG obtained. Afib w/ RVR at a rate of 127. Hypotensive -- 95/47. Will refer to [facility] ER for further eval and treatment. Pt agreeable to plan. Report called. 2. Dizziness and giddiness (R42) - Onset of symptoms began yesterday around noon, associated with lightheadedness and fatigue. - No chest pain, palpitations, or syncope reported. - Symptoms exacerbated by bending over; resolved with sitting. - No hematuria or melena noted. - Ordered EKG to evaluate cardiac rhythm. Suspect component of dehydration, as very hot/humid this weekend and he was doing yardwork. Discussed treatment plan and patient voices understanding. Patient's questions answered appropriately. Medications and potential side effects were discussed and patient voices understanding. Return to the office as scheduled or as needed for worsening/no improvement. Yennifer Worrell APRN.NETWORK DESIGN ARCHITECT Recording using [employer] software for draft documentation of the visit was discussed with the patient/authorized instruments sales representative; all questions welcomed and answered. Patient/authorized instruments sales representative agreed to proceed [facility] 04-30-2025 History of Present illness Narrative This is a 64 year old male who presents today with: Roberto De La Cruz is a 64-year-old male presenting with dizziness, fatigue, and sinus congestion. HISTORY OF PRESENT ILLNESS: Dizziness and Fatigue: - Onset: Yesterday around 12:00-13:00. - Occurred while doing yard work; felt lightheaded and had to sit down. - Drank water and rested; symptoms recurred when resuming activity. - Denies chest pain, palpitations, or feeling like he was going to pass out. - Denies SOB. - Denies dizziness when changing positions from lying to standing; experienced dizziness when bending over. - Denies hematochezia or melena. - Describes himself as a little on the impatient side. Sinus Congestion: - Persistent sinus congestion; treated by [facility] in January and February. - Coughing has resolved; denies taking any current medication for sinus issues. Diarrhea: - Experienced diarrhea starting Wednesday evening, continuing into Wednesday, then resolved. - Drank a lot of water on Wednesday. Paroxysmal A. Fib: Hx of A.fib -- last episode 5 years ago. He was anticoagulated X 1 month and then cardioverted. Follows w/ [facility]. PAST MEDICAL HISTORY: PAST MEDICAL HISTORY Diagnosis Date A-fib (HCC) 04/2020 PAST SURGICAL HISTORY Procedure Laterality Date COLONOSCOPY FLX DX W/COLLJ SPEC WHEN PFRMD 11/27/2016 Colonoscopy LAPAROSCOPIC CHOLECYSTECTOMY 06/20/2019 Dr. Gagan Richardson PAST SURGICAL HISTORY OF finger surgery x 2 TONSILLECTOMY PRIMARY/SECONDARY <AGE 14 Tonsillectomy and adnoids VENOUS EXTREMITY UNILATERAL 10/08/2021 US neg DVT left lower leg ALLERGIES Iodinated Contrast Media MEDICATIONS Current Outpatient Medications Medication Sig sertraline (ZOLOFT) 50 mg tablet Take 1 tablet by mouth once daily. No current facility-administered medications for this visit. FAMILY HISTORY Problem Relation Age of Onset Alzheimer's Disease Mother Cancer Father brain tumor ,lung removed and kidney removed COPD Brother Osteoporosis Paternal Grandfather Alzheimer's Disease Sister Social History Tobacco Use Smoking status: Never Smokeless tobacco: Never Vaping Use Vaping status: Never Used Substance Use Topics Alcohol use: Yes Comment: occasional Drug use: No REVIEW OF SYSTEMS Constitutional: (+) fatigue, (+) diaphoresis Ears/Nose/Mouth/Throat: (+) nasal congestion Cardiovascular: (-) chest pain, (-) palpitations Respiratory: (+) lung pain, (-) shortness of breath Gastrointestinal: (-) nausea, (-) hematochezia, (-) melena Neurological: (+) dizziness, (-) syncope EXAM: BP (!) 95/47 Pulse (!) 127 Temp 36.7 C (98 F) Resp 16 SpO2 98% PHYSICAL EXAM: General Appearance: Well appearing, alert, in no acute distress, well-hydrated, well nourished.. Skin: Skin color, texture, turgor normal, no suspicious rashes or lesions. Head: Normocephalic, no masses, lesions, tenderness or abnormalities. Eyes: Anicteric sclera. Extraocular movements are intact. . Ears: External ears normal, canals clear, Positive findings: R TM: air/fluid interface visualized, L TM: air/fluid interface visualized. Oropharynx: Lips, mucosa, and tongue normal, teeth and gums normal, oropharynx normal. Neck: Supple, no adenopathy Lungs: Lungs clear to auscultation. No wheezing, rhonchi, rales.. Heart: Positive findings: irregularly irregular rhythm. Tachycardic. Extremities: No deformities, edema, skin discoloration, clubbing or cyanosis. Good capillary refill. . Neurologic: Gait normal. ASSESSMENT/PLAN 1. Paroxysmal atrial fibrillation (HCC) (I48.0) EKG obtained. Afib w/ RVR at a rate of 127. Hypotensive -- 95/47. Will refer to [facility] ER for further eval and treatment. Pt agreeable to plan. Report called. 2. Dizziness and giddiness (R42) - Onset of symptoms began yesterday around noon, associated with lightheadedness and fatigue. - No chest pain, palpitations, or syncope reported. - Symptoms exacerbated by bending over; resolved with sitting. - No hematuria or melena noted. - Ordered EKG to evaluate cardiac rhythm. Suspect component of dehydration, as very hot/humid this weekend and he was doing yardwork. Discussed treatment plan and patient voices understanding. Patient's questions answered appropriately. Medications and potential side effects were discussed and patient voices understanding. Return to the office as scheduled or as needed for worsening/no improvement. Yennifer Worrell APRN.NETWORK DESIGN ARCHITECT Recording using ambient [email or web address] software for draft documentation of the visit was discussed with the patient/authorized instruments sales representative; all questions welcomed and answered. Patient/authorized instruments sales representative agreed to proceed documented in this encounter [facility] 04-30-2025 Discharge summary Note Date/Time April 30, 2025 6:21pm [facility] Medical Records Department [address] [place] [address] Emergency Department Summary 04/30/25 MR#: [id number] Acct: [id number] Name: ROBERTO DE LA CRUZ Rep #:[id number] : 1960 64 From: Lee Jaeger MD PCP: Dr. Kenneth Beckett MD Status:REG E R Location: ED HPI History of Present Illness Chief Complaint: Palpitations Narrative Narrative: 64-year-old male presents with lightheadedness and palpitations consistent with his previous atrial fibrillation that he has had since yesterday evening around 6:30 PM. This was approximately 22 hours ago. He relates history that around 8years ago he was diagnosed with atrial fibrillation. He went to his primary care provider's office because he thought he had bronchitis. He was sent to theemergency department for atrial fibrillation. He was started on Eliquis and metoprolol he believes, and was cardioverted 3 weeks later. He followed up withDr. Mans[facility] with [facility], who took him off all the medications because he had not had atrial fibrillation in quite some time. Additionally, hesaw Dr. Moss recently, and did not have any episodes of atrial fibrillation for approximately 8 years. Yesterday, he was working outside, states he bent over and felt lightheaded. Since then he has had occasional feelings of heart palpitations and lightheadedness but denies any chest pain or shortness of breath. No exacerbating or alleviating factors. He went to his primary care provider's office and was found to be in atrial fibrillation with RVR. [facility] Medical History Paroxysmal atrial fibrillation Hypersomnia Chest pain New onset atrial fibrillation Acute cholecystitis Acute renal insufficiency MRSA infection right ring finger infection Tenosynovitis of finger Home Medications ?Medication ?Instructions ?Recorded ?Last Taken ?Type apixaban 5 mg tablet (Eliquis) 5 mg PO BID #60 tabs Unknown Rx metoprolol tartrate 50 mg tablet 50 mg PO BID #60 tabs 04/30/25 Unknown Rx Allergy/AdvReac Type Severity Reaction Status Date / Time Iodinated Contrast Media AdvReac Other Verified 04/30/25 15:04 (CONTRASTS) Family History Mother Alzheimer's disease Father Brain tumor S/P lobectomy of lung S/p nephrectomy Cancer Brother COPD (chronic obstructive pulmonary disease) Sister Alzheimer's disease Surgical History History of cardioversion (01/03/20) History of tonsillectomy and adenoidectomy History of colonoscopy (11/27/16) history of finger surgery History of cholecystectomy (06/20/19) Social History household members: spouse Smoking Status: Never smoker substance use type: does not use ROS ROS ED ROS Narrative Review of systems positive for palpitations and lightheadedness. No chest pain or shortness of breath, no leg swelling. No exacerbating or alleviating factors. No fevers or chills, no cough. Feels similar to previous atrial fibrillation. EXAM Physical Exam Narrative Exam Narrative: Afebrile. Vital signs noted. Nontoxic-appearing. Cardiovascularly the examination reveals an irregularly irregular tachycardia. Lungs clear to auscultation bilaterally. Abdomen is soft and nontender with positive bowel sounds. Neurological examination nonfocal nonlateralizing. No pedal edema appreciated. Const Vital Signs: 04/30/25 15:04 04/30/25 16:02 04/30/25 16:13 Temperature 97.1 F L Temperature Source Temporal Pulse Rate 59 L 128 H 89 Respiratory Rate 14 18 18 Blood Pressure 107/85 H 103/76 102/85 H Blood Pressure Mean 92 85 90 Pulse Ox 98 99 98 Oxygen Delivery Method Room Air Room Air Room Air 04/30/25 16:46 04/30/25 18:01 Temperature Temperature Source Pulse Rate 99 98 Respiratory Rate 22 H Blood Pressure 95/72 96/69 Blood Pressure Mean 79 78 Pulse Ox 95 Oxygen Delivery Method Room Air MDM MDM MDM Narrative Medical decision making narrative: Differential diagnosis includes but not limited to A-fib without versus sinus tachycardia with PVCs. EKG obtained and interpreted by myself independently as A-fib with RVR to [address] changes. No STEMI. I will obtain CBC, CMP, as well as magnesium. I do not feel he requires a troponin. He is not having chest pain. Rate control will be attempted with labetalol 20 mg intravenously. After metoprolol, heart rate is now in the 80s to 90s. I reviewed his laboratory work and he has normal white count of 7.7 with hemoglobin normal at 16.1, hematocrit 47.6, platelet count 223. BUN elevated slightly at 23 with creatinine 1.17, glucose appropriately elevated at 121 with normal anion gap of 10. LFTs are grossly unremarkable. Chest x-ray interpreted by myself independently shows no pneumonia or pneumothorax. I reviewed the radiology report which confirms my independent interpretation. I discussed the patient with Dr. Mcneil with cardiology. He was also made aware of the patient's current heart rate and soft blood pressure of 96/69. It was not felt that he needed emergent cardioversion. He prefers that the patient be placed on metoprolol tartrate 50 mg twice a day as well as Eliquis 5 mg twice a day. He is to call the office tomorrow for an appointment. As he is rate controlled, I feel he can be discharged to follow-up. He was given his first dose of the medication here in the emergency department. Return instructions tothe emergency department were reviewed. Disposition is discharged home in stable condition. History & Record Review Discussion w/independent historian: Patient and Family () Additional record(s) reviewed:: Prior ED visit Lab Data Attestation: I reviewed the patient's lab results. Labs: Laboratory Results - last 24 hr 04/30/25 16:00 WBC 7.7 RBC 5.18 Hgb 16.1 Hct 47.6 MCV 91.9 MCH 31.1 MCHC 33.8 RDW Std Deviation 46.1 H RDW Coeff of Mariola 13.6 Plt Count 223 MPV 10.2 Immature Gran % (Auto) 0.400 Neut % (Auto) 56.1 Lymph % (Auto) 37.0 Leslie % (Auto) 4.4 Eos % (Auto) 1.2 Baso % (Auto) 0.9 Absolute Neuts (auto) 4.4 Absolute Lymphs (auto) 2.86 Nucleated RBC % 0 Sodium 136 Potassium 4.6 Chloride 105 Carbon Dioxide 22.0 Anion Gap 10 BUN 23 H Creatinine 1.17 Estim Creat Clear Calc 88.81 Est GFR (MDRD) Non-Af 70 BUN/Creatinine Ratio 19.4 Glucose 121 H Calcium 9.2 Magnesium 2.0 Total Bilirubin 0.68 AST 28 ALT 24 Alkaline Phosphatase 75 Total Protein 6.5 Albumin 3.8 Globulin 2.7 Albumin/Globulin Ratio 1.4 Radiography Chest X-Ray - ED: 1 View, Read by ED Physician, Read by Radiologist, No Acute Disease and No Infiltrates Diagnostic Testing: Clinical Impression(s) from Imaging Studies Chest X-Ray 04/30/25 16:00 IMPRESSION: No focal consolidations. Reading Location: [facility] Management Discussion w/another healthcare provider: Line Prep Cook (Dr. Mcneil, cardiology) Discharge Plan Triage Chief Complaint: Palpitations ED Provider: Lee Jaeger Dx/Rx/DC Orders Clinical Impression: Paroxysmal atrial fibrillation, Atrial fibrillation with RVR Instructions: ED AFIB Prescriptions: New Eliquis 5 mg tablet 5 mg PO BID Qty: 60 0RF metoprolol tartrate 50 mg tablet 50 mg PO BID Qty: 60 0RF Primary Care Provider: Kenneth Beckett Referrals: Arben Mcneil MD [Med Staff - Active Staff] - 1 Day Kenneth Beckett MD [Primary Care Provider] - Activity Restrictions/Additional Instructions: Take the metoprolol and Eliquis as you had previously done, 50 mg metoprolol twice a day by mouth and the Eliquis 5 mg twice a day by mouth. Return to the emergency department with elevated heart rate above 120 bpm consistently. Call cardiology, Dr. Mcneil tomorrow for an appointment. Return to the emergency department with new or worsening symptoms including heart palpitations, syncope,and/or chest pain. Print Language: Anguillan Disposition Disposition: Home, Self Care What to do if you have Problems For any increased pain, shortness of breath, bleeding, nausea or vomiting, chestpain, or any unexpected problems, contact your Primary Care Provider. Call [employer] [facility] ([phone]) or report to the closest Emergency Room. Call 911 if necessary. 04/30/25 [id number] <Electronically signed by Lee Jaeger MD> Cosigner Signature (if applicable): CC: Dr. Kenneth Beckett MD ~ Signed [facility] Work Phone: 1(424) 576-805506-18-2025 Telephone encounter Note* Telephone Encounter - Yennifer Worrell APRN.ALESHIA - 04/25/2025 4:45 PM EDT Noted. Yennifer Worrell APRN.ALESHIA [facility] Work Phone: [phone]) 300-392206-18-2025 Miscellaneous Notes* Telephone Encounter - Yennifer Worrell APRN.CNP - 04/25/2025 4:45 PM EDT Noted. Yennifer Worrell APRN.ALESHIA * Telephone Encounter - Jonathon Cote LPN - 04/25/2025 1:46 PM EDT Pt notified of results/provider instructions. He verbalized understanding. He will wait to clam picker when 's results are in. Jonathon Cote LPN * Telephone Encounter - Yennifer Worrell APRN.CNP - 04/24/2025 6:04 PM EDT Can please let patient know that I received his lab results. Overall, everything looked within normal/stable. His glucose was one point above normal. Continue to work on healthy diet and exercise to maintain/control cholesterol. I did finish his form. I wasn't sure if he wanted to pick-up, or wait until we receive his 's results. Yennifer Worrell APRN.ALESHIA documented in this encounter[facility] Telephone encounter Note * Telephone Encounter - Jonathon Cote LPN - 04/25/2025 1:46 PM EDT Pt notified of results/provider instructions. He verbalized understanding. He will wait to clam picker when 's results are in. Jonathon Cote LPN [facility]06-17-2025 Telephone encounter Note* Telephone Encounter - Yennifer Worrell APRN.CNP - 04/24/2025 6:04 PM EDT Can please let patient know that I received his lab results. Overall, everything looked within normal/stable. His glucose was one point above normal. Continue to work on healthy diet and exercise to maintain/control cholesterol. I did finish his form. I wasn't sure if he wanted to pick-up, or wait until we receive his 's results. Yennifer Worrell APRN.NETWORK DESIGN ARCHITECT [facility]06-16-2025 NoteHNO ID: [id number] Author: YENNIFER WORRELL APRN.NETWORK DESIGN ARCHITECT Service: ? Author Type: Nurse Practitioner Type: Progress Notes Filed: 04/23/2025 08:41 Note Text: This is a 64 year old male who presents today with: Roberto Jolene Richhellen is a 64-year-old male with a history of anxiety, presenting for an annual wellness visit. HISTORY OF PRESENT ILLNESS: Annual Wellness Exam: Has form for work. - Last colonoscopy in 2020; Roberto plans to schedule another with the same provider in [place]. Headaches: - Occasional headaches attributed to allergies. - No medication use for allergies. - No other headaches reported. Anxiety/depression: - Managed with sertraline; no changes desired. - Anxiety exacerbated by family losses, including the of a brother three years ago and a sister. - Recent stress due to [id number]'s stage 3 throat cancer diagnosis. - Family history of Alzheimer's disease in mother and sister, cancer in father, and COPD in brother. Stable on current sertraline dose. PAST MEDICAL HISTORY: PAST MEDICAL HISTORY Diagnosis Date A-fib (HCC) 04/2020 PAST SURGICAL HISTORY Procedure Laterality Date COLONOSCOPY FLX DX W/COLLJ SPEC WHEN PFRMD 11/27/2016 Colonoscopy LAPAROSCOPIC CHOLECYSTECTOMY 06/20/2019 Dr. Gagan Richardson PAST SURGICAL HISTORY OF finger surgery x 2 TONSILLECTOMY PRIMARY/SECONDARY Tonsillectomy and adnoids VENOUS EXTREMITY UNILATERAL 10/08/2021 US neg DVT left lower leg ALLERGIES Iodinated Contrast Media MEDICATIONS Current Outpatient Medications Medication Sig sertraline (ZOLOFT) 50 mg tablet Take 1 tablet by mouth once daily. No current facility-administered medications for this visit. FAMILY HISTORY Problem Relation Age of Onset Alzheimer's Disease Mother Cancer Father brain tumor ,lung removed and kidney removed COPD Brother Osteoporosis Paternal Grandfather Alzheimer's Disease Sister Social History Tobacco Use Smoking status: Never Smokeless tobacco: Never Vaping Use Vaping status: Never Used Substance Use Topics Alcohol use: Yes Comment: occasional Drug use: No REVIEW OF SYSTEMS Constitutional: (-) unintentional weight loss, (-) weakness, (-) fatigue Head: (+) headaches -- related to allergies. Eyes: (-) vision change Ears/Nose/Mouth/Throat: (-) dysphagia, (-) hearing loss Neck: (-) neck masses Cardiovascular: (-) chest pain, (-) palpitations, (-) peripheral edema Respiratory: (-) dyspnea, (-) cough, (-) wheezing Gastrointestinal: (-) abdominal pain, (-) heartburn, (-) diarrhea, (-) constipation, (-) hematochezia, (-) melena Genitourinary: (-) dysuria Skin: (-) rash, (-) pruritus, (-) changing moles Neurological: (-) syncope, (-) seizures, (-) tremors Endocrine: (-) heat intolerance, (-) cold intolerance, (-) polydipsia, (-) polyuria Hematologic/Lymphatic: (-) abnormal bleeding, (-) easy bruising EXAM: BP 118/82 Pulse (!) 49 Resp 16 SpO2 95% PHYSICAL EXAM: General Appearance: Well appearing, alert, in no acute distress, well-hydrated, well nourished.. Skin: Skin color, texture, turgor normal, no suspicious rashes or lesions. Head: Normocephalic, no masses, lesions, tenderness or abnormalities. Eyes: Anicteric sclera. Pupils are equally round and reactive to light. Extraocular movements are intact. . Ears: External ears normal, canals clear. Normal TMs bilaterally. Oropharynx: Lips, mucosa, and tongue normal, teeth and gums normal, oropharynx normal. Neck: Supple, no adenopathy; thyroid symmetric, normal size, no bruits. Lungs: Lungs clear to auscultation. No wheezing, rhonchi, rales.. Heart: RRR without murmur, gallop, or rubs. No ectopy. Abdomen: Abdomen soft, non-tender. Bowel sounds normal. No masses, organomegaly. Extremities: No deformities, edema, skin discoloration, clubbing or cyanosis. Good capillary refill. . Neurologic: Gait normal. Reflexes normal and symmetric. Sensation grossly intact.. ASSESSMENT/PLAN 1. Wellness examination (Z00.00) - Comprehensive physical examination performed; no abnormalities detected. - Ordered fasting labs; patient instructed to complete lab work immediately post-visit. - Discussed importance of maintaining current health status. - Declined HIV, COVID, pneumonia, and shingles vaccines. Health Promotion: - Eat healthy -- go to [employer] to get started - Have a yearly physical - Get at least 30 minutes of physical activity daily - Get at least 7 to 8 hours of sleep each night - Reach and maintain a healthy weight - Get help to quit or don't start smoking - Limit alcohol use to one drink or less - Do not use illegal drugs or misuse prescription drugs - Wear a helmet when riding a bike and wear protective gear for sports - Wear a seatbelt in cars and not text and drive - Wear sunscreen 2. Anxiety and depression (F41.9) - Anxiety well-managed with sertraline; no changes to medication re (more content not included)...[facility]06-16-2025 History of Present illness Narrative* Yennifer Worrell APRN.NETWORK DESIGN ARCHITECT - 04/23/2025 8:37 AM EDT This is a 64 year old male who presents today with: Roberto De La Cruz is a 64-year-old male with a history of anxiety, presenting for an annual wellnessvisit. HISTORY OF PRESENT ILLNESS: Annual Wellness Exam: Has form for work. - Last colonoscopy in 2020; Roberto plans to schedule another with the same provider in [place]. Headaches: - Occasional headaches attributed to allergies. - No medication use for allergies. - No other headaches reported. Anxiety/depression: - Managed with sertraline; no changes desired. - Anxiety exacerbated by family losses, including the of a brother three years ago and a sister. - Recent stress due to ojbuclxa-ib-vec's stage 3 throat cancer diagnosis. - Family history of Alzheimer's disease in mother and sister, cancer in father, and COPD in brother. Stable on current sertraline dose. PAST MEDICAL HISTORY: PAST MEDICAL HISTORY Diagnosis Date A-fib (HCC) 04/2020 PAST SURGICAL HISTORY Procedure Laterality Date COLONOSCOPY FLX DX W/COLLJ SPEC WHEN PFRMD 11/27/2016 Colonoscopy LAPAROSCOPIC CHOLECYSTECTOMY 06/20/2019 Dr. Gagan Richardson PAST SURGICAL HISTORY OF finger surgery x 2 TONSILLECTOMY PRIMARY/SECONDARY <AGE 14 Tonsillectomy and adnoids VENOUS EXTREMITY UNILATERAL 10/08/2021 US neg DVT left lower leg ALLERGIES Iodinated Contrast Media MEDICATIONS Current Outpatient Medications Medication Sig sertraline (ZOLOFT) 50 mg tablet Take 1 tablet by mouth once daily. No current facility-administered medications for this visit. FAMILY HISTORY Problem Relation Age of Onset Alzheimer's Disease Mother Cancer Father brain tumor ,lung removed and kidney removed COPD Brother Osteoporosis Paternal Grandfather Alzheimer's Disease Sister Social History Tobacco Use Smoking status: Never Smokeless tobacco: Never Vaping Use Vaping status: Never Used Substance Use Topics Alcohol use: Yes Comment: occasional Drug use: No REVIEW OF SYSTEMS Constitutional: (-) unintentional weight loss, (-) weakness, (-) fatigue Head: (+) headaches -- related to allergies. Eyes: (-) vision change Ears/Nose/Mouth/Throat: (-) dysphagia, (-) hearing loss Neck: (-) neck masses Cardiovascular: (-) chest pain, (-) palpitations, (-) peripheral edema Respiratory: (-) dyspnea, (-) cough, (-) wheezing Gastrointestinal: (-) abdominal pain, (-) heartburn, (-) diarrhea, (-) constipation, (-) hematochezia, (-) melena Genitourinary: (-) dysuria Skin: (-) rash, (-) pruritus, (-) changing moles Neurological: (-) syncope, (-) seizures, (-) tremors Endocrine: (-) heat intolerance, (-) cold intolerance, (-) polydipsia, (-) polyuria Hematologic/Lymphatic: (-) abnormal bleeding, (-) easy bruising EXAM: BP 118/82 Pulse (!) 49 Resp 16 SpO2 95% PHYSICAL EXAM: General Appearance: Well appearing, alert, in no acute distress, well-hydrated, well nourished.. Skin: Skin color, texture, turgor normal, no suspicious rashes or lesions. Head: Normocephalic, no masses, lesions, tenderness or abnormalities. Eyes: Anicteric sclera. Pupils are equally round and reactive to light. Extraocular movements are intact. . Ears: External ears normal, canals clear. Normal TMs bilaterally. Oropharynx: Lips, mucosa, and tongue normal, teeth and gums normal, oropharynx normal. Neck: Supple, no adenopathy; thyroid symmetric, normal size, no bruits. Lungs: Lungs clear to auscultation. No wheezing, rhonchi, rales.. Heart: RRR without murmur, gallop, or rubs. No ectopy. Abdomen: Abdomen soft, non-tender. Bowel sounds normal. No masses, organomegaly. Extremities: No deformities, edema, skin discoloration, clubbing or cyanosis. Good capillary refill. . Neurologic: Gait normal. Reflexes normal and symmetric. Sensation grossly intact.. ASSESSMENT/PLAN 1. Wellness examination (Z00.00) - Comprehensive physical examination performed; no abnormalities detected. - Ordered fasting labs; patient instructed to complete lab work immediately post-visit. - Discussed importance of maintaining current health status. - Declined HIV, COVID, pneumonia, and shingles vaccines. Health Promotion: - Eat healthy -- go to [employer].gov to get started - Have a yearly physical - Get at least 30 minutes of physical activity daily - Get at least 7 to 8 hours of sleep each night - Reach and maintain a healthy weight - Get help to quit or don't start smoking - Limit alcohol use to one drink or less - Do not use illegal drugs or misuse prescription drugs - Wear a helmet when riding a bike and wear protective gear for sports - Wear a seatbelt in cars and not text and drive - Wear sunscreen 2. Anxiety and depression (F41.9) - Anxiety well-managed with sertraline; no changes to medication regimen. - Patient experienced situational stress due to family bereavements and [id number]'s cancer diagnosis. 3. Hyperlipidemia, mixed (E78.2) - due for updated labs for wellness form. 4. Screening for colon cancer (Z12.11) - Last colonoscopy performed in 2020. - Advised to schedule next colonoscopy with previous provider in [place]. Discussed treatment plan and patient voices understanding. Patient's questions answered appropriately. Medications and potential side effects were discussed and patient voices understanding. Return to the office as scheduled or as needed for worsening/no improvement. Yennifer Worrell APRN.CNP Recording using [employer] software for draft documentation of the visit was discussed with the patient/authorized instruments sales representative; all questions welcomed and answered. Patient/authorized instruments sales representative agreed to proceed documented in this encounterK[facility]06-16-[facility] Instructions* Patient Instructions* Yennifer Worrell APRN.CNP - 04/23/2025 8:31 AM EDT - Continue your current dose of sertraline for anxiety; no changes were made today. - Stop by the lab for the ordered blood tests as soon as possible (you re already fasting 10-12 hours; you may have water or black coffee). - Arrange your next colonoscopy (due every 3 years) with the same doctor in [place]--call their office to schedule. - We will complete and hold your paperwork until your lab results return; we ll call you when the forms are ready for pickup. Health Promotion: - Eat healthy -- go to [employer].gov to get started - Have a yearly physical - Get at least 30 minutes of physical activity daily - Get at least 7 to 8 hours of sleep each night - Reach and maintain a healthy weight - Get help to quit or don't start smoking - Limit alcohol use to one drink or less - Do not use illegal drugs or misuse prescription drugs - Wear a helmet when riding a bike and wear protective gear for sports - Wear a seatbelt in cars and not text and drive - Wear sunscreen documented in this encounterK[facility]05-09-2025 Telephone encounter Note * Telephone Encounter - Jennifer Mooney - 03/16/2025 11:33 AM EDT Prescription Refill Information The patient has been identified by name and date of : Yes Caregiver verified no other encounters exist for this prescription request: Yes Caregiver confirmed with patient/requestor that no other refills are due, in the near future, with this provider at this time: Yes The last office visit in the department: 02/19/25 Does the patient have a future office visit with this provider/department: No Requested Prescriptions Pending Prescriptions Disp Refills sertraline (ZOLOFT) 50 mg tablet 30 tablet 1 Sig: Take 1 tablet by mouth once daily. Jennifer Mooney March 16, 2025 11:33 AM [facility]05-09-2025 Miscellaneous Notes* Telephone Encounter - Jennifer Mooney - 03/16/2025 11:33 AM EDT Prescription Refill Information The patient has been identified by name and date of : Yes Caregiver verified no other encounters exist for this prescription request: Yes Caregiver confirmed with patient/requestor that no other refills are due, in the near future, with this provider at this time: Yes The last office visit in the department: 02/19/25 Does the patient have a future office visit with this provider/department: No Requested Prescriptions Pending Prescriptions Disp Refills sertraline (ZOLOFT) 50 mg tablet 30 tablet 1 Sig: Take 1 tablet by mouth once daily. Jennifer Mooney March 16, 2025 11:33 AM documented in this encounterK[facility]04-14-2025 Instructions* Patient Instructions* Hanh Sharma APRN.CNP - 02/19/2025 10:01 AM EDT 1) Augmentin 2 x day for 10 days 2) Phenergan and phenylephrine 1 tsp 4 times a day 3) Off work for 24 hours documented in this encounterKet[facility]04-14-2025 NoteHNO ID: [id number] Author: HANH SHARMA APRN.CNP Service: ? Author Type: Nurse Practitioner Type: Progress Notes Filed: 02/19/2025 10:04 Note Text: This is a 64 year old male who presents today with: Patient presents with: Acute Visit: Cough, congestion, ear pressure for about a week HISTORY OF PRESENT ILLNESS: Roberto De La Cruz is a 64 year old male. Patient presents with: Acute Visit: Cough, congestion, ear pressure for about a week Head congestion, chest congestion for about a week. Wed. And - runny nose. Wednesday- coughing. Laying around. No energy. No appetite. Some chills. Was sick a month ago and now back. Nyquil, sinus congestion pills, nothing helps. Can't lay down d/t cough. PAST MEDICAL HISTORY: PAST MEDICAL HISTORY Diagnosis Date A-fib (HCC) 04/2020 PAST SURGICAL HISTORY Procedure Laterality Date COLONOSCOPY FLX DX W/COLLJ SPEC WHEN PFRMD 11/27/2016 Colonoscopy LAPAROSCOPIC CHOLECYSTECTOMY 06/20/2019 Dr. Gagan Richardson PAST SURGICAL HISTORY OF finger surgery x 2 TONSILLECTOMY PRIMARY/SECONDARY Tonsillectomy and adnoids VENOUS EXTREMITY UNILATERAL 10/08/2021 US neg DVT left lower leg ALLERGIES Iodinated Contrast Media MEDICATIONS Current Outpatient Medications Medication Sig Promethazine-DM (PHENERGAN-DM) 6.25-15 mg/5 mL syrup Take 5 mL by mouth four times a day as needed. sertraline (ZOLOFT) 50 mg tablet Take 1 tablet by mouth once daily. No current facility-administered medications for this visit. FAMILY HISTORY Problem Relation Age of Onset Alzheimer's Disease Mother Cancer Father brain tumor ,lung removed and kidney removed COPD Brother Osteoporosis Paternal Grandfather Alzheimer's Disease Sister Social History Tobacco Use Smoking status: Never Smokeless tobacco: Never Vaping Use Vaping status: Never Used Substance Use Topics Alcohol use: Yes Comment: occasional Drug use: No EXAM: BP 122/74 Pulse (!) 59 Temp 36.1 ?C (97 ?F) (Left Tympanic) Wt 119.3 kg (263 lb) SpO2 96% BMI 35.67 kg/m? PHYSICAL EXAM: Physical Exam Vitals reviewed. Constitutional: Appearance: Normal appearance. HENT: Head: Normocephalic. Right Ear: Ear canal and external ear normal. There is no impacted cerumen. Left Ear: Ear canal and external ear normal. There is no impacted cerumen. Ears: Comments: TM bulging Nose: Congestion and rhinorrhea present. Comments: Nasal erosions right Mouth/Throat: Pharynx: Oropharyngeal exudate and posterior oropharyngeal erythema present. Neck: Vascular: No carotid bruit. Cardiovascular: Rate and Rhythm: Normal rate and regular rhythm. Pulses: Normal pulses. Heart sounds: Normal heart sounds. Pulmonary: Effort: Pulmonary effort is normal. Breath sounds: Normal breath sounds. Comments: Negative egophony Musculoskeletal: General: Normal range of motion. Comments: Moves all ext. Without difficulty, walks w/o assistive device Lymphadenopathy: Cervical: No cervical adenopathy. Skin: General: Skin is warm and dry. Neurological: Mental Status: He is alert and oriented to person, place, and time. LABS: ASSESSMENT/PLAN: 1. Acute maxillary sinusitis, recurrence not specified - ICD9: 461.0, ICD10: J01.00 - Will begin treatment with Augmentin 875 mg PO BID for 10 days - AMOXICILLIN 875 MG-POTASSIUM CLAVULANATE 125 MG TABLET - PROMETHAZINE-PHENYLEPHRINE 6.25 MG-5 MG/5 ML ORAL SYRUP 4 times a dy as needed Discussed treatment plan and patient voices understanding. Patient's questions answered appropriately. Medications and potential side effects were discussed and patient voices understanding. Return to the office as scheduled or as needed for worsening/no improvement. Hanh Sharma APRN.CNPParkview Health [facility]04-14-2025 History of Present illness Narrative* Hanh Sharma APRN.ALESHIA - 02/19/2025 9:53 AM EDT This is a 64 year old male who presents today with: Patient presents with: Acute Visit: Cough, congestion, ear pressure for about a week HISTORY OF PRESENT ILLNESS: Roberto De La Cruz is a 64 year old male. Patient presents with: Acute Visit: Cough, congestion, ear pressure for about a week Head congestion, chest congestion for about a week. Wed. And - runny nose. Wednesday- coughing. Laying around. No energy. No appetite. Some chills. Was sick a month ago and now back. Nyquil, sinus congestion pills, nothing helps. Can't lay down d/t cough. PAST MEDICAL HISTORY: PAST MEDICAL HISTORY Diagnosis Date A-fib (HCC) 04/2020 PAST SURGICAL HISTORY Procedure Laterality Date COLONOSCOPY FLX DX W/COLLJ SPEC WHEN PFRMD 11/27/2016 Colonoscopy LAPAROSCOPIC CHOLECYSTECTOMY 06/20/2019 Dr. Gagan Richardson PAST SURGICAL HISTORY OF finger surgery x 2 TONSILLECTOMY PRIMARY/SECONDARY <AGE 14 Tonsillectomy and adnoids VENOUS EXTREMITY UNILATERAL 10/08/2021 US neg DVT left lower leg ALLERGIES Iodinated Contrast Media MEDICATIONS Current Outpatient Medications Medication Sig Promethazine-DM (PHENERGAN-DM) 6.25-15 mg/5 mL syrup Take 5 mL by mouth four times a day as needed. sertraline (ZOLOFT) 50 mg tablet Take 1 tablet by mouth once daily. No current facility-administered medications for this visit. FAMILY HISTORY Problem Relation Age of Onset Alzheimer's Disease Mother Cancer Father brain tumor ,lung removed and kidney removed COPD Brother Osteoporosis Paternal Grandfather Alzheimer's Disease Sister Social History Tobacco Use Smoking status: Never Smokeless tobacco: Never Vaping Use Vaping status: Never Used Substance Use Topics Alcohol use: Yes Comment: occasional Drug use: No EXAM: BP 122/74 Pulse (!) 59 Temp 36.1 C (97 F) (Left Tympanic) Wt 119.3 kg (263 lb) SpO2 96% BMI 35.67 kg/m PHYSICAL EXAM: Physical Exam Vitals reviewed. Constitutional: Appearance: Normal appearance. HENT: Head: Normocephalic. Right Ear: Ear canal and external ear normal. There is no impacted cerumen. Left Ear: Ear canal and external ear normal. There is no impacted cerumen. Ears: Comments: TM bulging Nose: Congestion and rhinorrhea present. Comments: Nasal erosions right Mouth/Throat: Pharynx: Oropharyngeal exudate and posterior oropharyngeal erythema present. Neck: Vascular: No carotid bruit. Cardiovascular: Rate and Rhythm: Normal rate and regular rhythm. Pulses: Normal pulses. Heart sounds: Normal heart sounds. Pulmonary: Effort: Pulmonary effort is normal. Breath sounds: Normal breath sounds. Comments: Negative egophony Musculoskeletal: General: Normal range of motion. Comments: Moves all ext. Without difficulty, walks w/o assistive device Lymphadenopathy: Cervical: No cervical adenopathy. Skin: General: Skin is warm and dry. Neurological: Mental Status: He is alert and oriented to person, place, and time. LABS: ASSESSMENT/PLAN: 1. Acute maxillary sinusitis, recurrence not specified - ICD9: 461.0, ICD10: J01.00 - Will begin treatment with Augmentin 875 mg PO BID for 10 days - AMOXICILLIN 875 MG-POTASSIUM CLAVULANATE 125 MG TABLET - PROMETHAZINE-PHENYLEPHRINE 6.25 MG-5 MG/5 ML ORAL SYRUP 4 times a dy as needed Discussed treatment plan and patient voices understanding. Patient's questions answered appropriately. Medications and potential side effects were discussed and patient voices understanding. Return to the office as scheduled or as needed for worsening/no improvement. Hanh Sharma APRN.NETWORK DESIGN ARCHITECT documented in this encounterKet[facility]04-07-2025 NoteHNO ID: [id number] Author: PAULINA MARMOLEJO LPN Service: ? Author Type: LICENSED NURSE Type: Progress Notes Filed: 02/12/2025 11:29 Note Text: Per Dr. Mas Roberto was provided with powerstep gel inserts, size 10.5, and instructed/educated in its application, wear, and care. All questions were answered, and patient was able to demonstrate competence with the necessary skills to utilize the above equipment. SALLIE AroraC[facility] Foundation04-07-2025 History of Present illness Narrative* Paulina Marmolejo LPN - 02/12/2025 10:[address] Mas, Roberto was provided with powerstep gel inserts, size 10.5, and instructed/educated in its application, wear, and care. All questions were answered, and patient was able to demonstrate competence with the necessary skills to utilize the above equipment. Paulina Marmolejo LPN * Romel Mas - 02/12/2025 10:48 AM EDT Images from the original note were not included. Consultation requested by Dr. Sharma for an opinion regarding tailors bunion left foot. My final recommendations will be communicated back to the requesting physician by way of shared Medical record or letter to requesting physician via US mail. Initial Podiatric Office Visit: Chief Complaint: This 64 year old male who presents with chief complaint:tailors bunion of left foot HPI Patient presents to clinic for evaluation of left foot Complains of tailors bunion to the left foot States this has been going on for about 3 months. Treats with rest and wider shoes and use of tylenol. PAIN EVALUATION 02/12/2025 1039 Pain Level: 5 8/10 when pressure applied Pain Location: Foot-Left Description: Sharp Duration Units: Months Frequency: Intermittent Intervention/Comfort measure: Relaxation Hemoglobin A1C (%) Date Value 09/02/2013 5.7 HBA1C, [place] (%) Date Value 05/13/2009 6.2 PCP: Kenneth Beckett MD PAST MEDICAL HISTORY Diagnosis Date A-fib ([facility]) 04/2020 Current Outpatient Medications Medication Sig Promethazine-DM (PHENERGAN-DM) 6.25-15 mg/5 mL syrup Take 5 mL by mouth four times a day as needed. sertraline (ZOLOFT) 50 mg tablet Take 1 tablet by mouth once daily. No current facility-administered medications for this visit. ALLERGIES Allergen Reactions Iodinated Contrast * Other: See Comments Kidney failure PAST SURGICAL HISTORY Procedure Laterality Date COLONOSCOPY FLX DX W/COLLJ SPEC WHEN PFRMD 11/27/2016 Colonoscopy LAPAROSCOPIC CHOLECYSTECTOMY 06/20/2019 Dr. Gagan Richardson PAST SURGICAL HISTORY OF finger surgery x 2 TONSILLECTOMY PRIMARY/SECONDARY <AGE 14 Tonsillectomy and adnoids VENOUS EXTREMITY UNILATERAL 10/08/2021 US neg DVT left lower leg FAMILY HISTORY Problem Relation Age of Onset Alzheimer's Disease Mother Cancer Father brain tumor ,lung removed and kidney removed COPD Brother Osteoporosis Paternal Grandfather Alzheimer's Disease Sister Social History Tobacco Use Smoking status: Never Smokeless tobacco: Never Vaping Use Vaping status: Never Used Substance Use Topics Alcohol use: Yes Comment: occasional Drug use: No REVIEW OF SYSTEMS GENERAL: Negative for Malaise, significant weight loss, fever RESPIRATORY: Negative for cough, wheezing and shortness of breath CARDIOVASCULAR: Negative for chest pain, leg swelling and palpitations GI: Negative for abdominal discomfort, blood in stools or black stools and change in bowel habits : Negative for dysuria, frequency and incontinence MUSCULOSKELETAL: Negative for joint pain or swelling, back pain, and muscle pain. SKIN: Negative for lesions, rash, and itching. HEMATOLOGY/LYMPHOLOGY Negative for prolonged bleeding, bruising easily, and swollen nodes. ENDOCRINE: Negative for cold or heat intolerance, polyuria, polydipsia and goiter. NEURO: negative Physical Exam: Constitutional: Pt is a well developed 64 year old male who is alert, oriented and cooperative Eyes: Following during examination. No redness or drainage. Respiratory: RR normal and nonlabored. Even breathing. No evidence of distress or shortness of breath. Psychology: Patient is engaged during conversation. Normal affect and mood. Does not appear depressed or anxious during encounter. Vascular: Dorsalis pedis and posterior tibial pulses palpable as b/l Capillary Fill time < 5 seconds to digits 1-5 b/l Skin temperature warm to warm proximal to distal b/l Hair growth present to digits Neurological: intact light touch/epicritic sensation b/l intact protective sensation no significant neurological deficits Dermatological: Nails 1-5 b/l appear normal. Webspaces clean and dry 1-4 b/l. Skin appears well hydrated and supple. good color, texture, turgor. No open lesions present. Callus to the plantar aspect of left 5th metatarsal Musculoskeletal/Orthopaedic: Patient has pain to palpation of left 5th metatarsal at site of tailors bunion Foot type is neutral structurally AJ ROM is full with knee extended and flexed 1st MPJ is full when loaded and no pain or crepitus are noted with ROM. MTJ, STJ are full and free of pain and crepitus. +5/5 muscle strength dorsiflexion, plantarflexion, inversion, eversion b/l Radiographs: 3 views left foot reviewed February 12, 2025: I have personally reviewed and interpreted these XR myself: tailors bunion of left foot ASSESSMENT: (M21.622) Tailor's bunion of left foot (primary encounter diagnosis) (M79.672) Foot pain, left (L84) Callus of foot PLAN: 1. History and physical examination performed. 2. XR reviewed with patient and interpreted today 3. Discussed tailors bunion of left foot. Discussed conservative options not limited to wider shoes, gel inserts vs surgcial intervention. Discussed both exostectomy vs metatarsal osteotomy. Patient is not interested in surgery. Gel inserts dispensed 4. Callus reduced with dremmel 5. F/u prn Romel Mas DPM Podiatry [address] [facility] [id number] Dept: [phone] Dept * Apurva Humphreys, [place] - 02/12/2025 10:36 AM EDT Patient presents with: Left Foot - New, Pain AMB ROOMING INTAKE FLOWSHEET DATA Risk Screening Do you have concerns about personal safety or safety in the home?: No Pain Pain Level: 5 (8/10 when pressure applied) Pain Location: Foot-Left Description: Sharp Duration Units: Months Frequency: Intermittent Intervention/Comfort measure: Relaxation Patient presents as referral from Hanh Sharma CNP for left foot pain with tailors bunion and callus. Xray done 01/22/25. States that it has been bothering him for months. Tender to touch, sheetsand shoes can bother him. States that he tried a corn pad that helped while using it, but pain returned shortly after. documented in this encounterK[facility]04-07-2025 Instructions* Patient Instructions* Romel Mas - 02/12/2025 10:56 AM EDT Powerstep Original Full length. Can purchase at [employer] and boots,shoes and more here in [place], [employer] in [place] or [place]. Also can find in [place] in [facility]. Powersteps can also be purchased online, starting around $45.00 If you have a metatarsal or dancer pad for your feet apply the pad directly to the insole so you can interchange between your shoes. Find a shoe with a removable insole and take this out and replace with your powerstep insole. Always bring powersteps with you when shopping for shoes so that you can make sure that everything fits well together documented in this encounterKettering [facility]04-07-2025 NoteHNO ID: [id number] Author: ROMEL MAS, ? Service: ? Author Type: Physician Type: Progress Notes Filed: 02/12/2025 11:29 Note Text: Consultation requested by Dr. Sharma for an opinion regarding tailors bunion left foot. My final recommendations will be communicated back to the requesting physician by way of shared Medical record or letter to requesting physician via US mail. Initial Podiatric Office Visit: Chief Complaint: This 64 year old male who presents with chief complaint:tailors bunion of left foot HPI Patient presents to clinic for evaluation of left foot Complains of tailors bunion to the left foot States this has been going on for about 3 months. Treats with rest and wider shoes and use of tylenol. PAIN EVALUATION 02/12/2025 1039 Pain Level: 5 8/10 when pressure applied Pain Location: Foot-Left Description: Sharp Duration Units: Months Frequency: Intermittent Intervention/Comfort measure: Relaxation Hemoglobin A1C (%) Date Value 09/02/2013 5.7 HBA1C, [place] (%) Date Value 05/13/2009 6.2 PCP: Kenneth Beckett MD PAST MEDICAL HISTORY Diagnosis Date A-fib ([facility]) 04/2020 Current Outpatient Medications Medication Sig Promethazine-DM (PHENERGAN-DM) 6.25-15 mg/5 mL syrup Take 5 mL by mouth four times a day as needed. sertraline (ZOLOFT) 50 mg tablet Take 1 tablet by mouth once daily. No current facility-administered medications for this visit. ALLERGIES Allergen Reactions Iodinated Contrast * Other: See Comments Kidney failure PAST SURGICAL HISTORY Procedure Laterality Date COLONOSCOPY FLX DX W/COLLJ SPEC WHEN PFRMD 11/27/2016 Colonoscopy LAPAROSCOPIC CHOLECYSTECTOMY 06/20/2019 Dr. Gagan Richardson PAST SURGICAL HISTORY OF finger surgery x 2 TONSILLECTOMY PRIMARY/SECONDARY Tonsillectomy and adnoids VENOUS EXTREMITY UNILATERAL 10/08/2021 US neg DVT left lower leg FAMILY HISTORY Problem Relation Age of Onset Alzheimer's Disease Mother Cancer Father brain tumor ,lung removed and kidney removed COPD Brother Osteoporosis Paternal Grandfather Alzheimer's Disease Sister Social History Tobacco Use Smoking status: Never Smokeless tobacco: Never Vaping Use Vaping status: Never Used Substance Use Topics Alcohol use: Yes Comment: occasional Drug use: No REVIEW OF SYSTEMS GENERAL: Negative for Malaise, significant weight loss, fever RESPIRATORY: Negative for cough, wheezing and shortness of breath CARDIOVASCULAR: Negative for chest pain, leg swelling and palpitations GI: Negative for abdominal discomfort, blood in stools or black stools and change in bowel habits : Negative for dysuria, frequency and incontinence MUSCULOSKELETAL: Negative for joint pain or swelling, back pain, and muscle pain. SKIN: Negative for lesions, rash, and itching. HEMATOLOGY/LYMPHOLOGY Negative for prolonged bleeding, bruising easily, and swollen nodes. ENDOCRINE: Negative for cold or heat intolerance, polyuria, polydipsia and goiter. NEURO: negative Physical Exam: Constitutional: Pt is a well developed 64 year old male who is alert, oriented and cooperative Eyes: Following during examination. No redness or drainage. Respiratory: RR normal and nonlabored. Even breathing. No evidence of distress or shortness of breath. Psychology: Patient is engaged during conversation. Normal affect and mood. Does not appear depressed or anxious during encounter. Vascular: Dorsalis pedis and posterior tibial pulses palpable as b/l Capillary Fill time < 5 seconds to digits 1-5 b/l Skin temperature warm to warm proximal to distal b/l Hair growth present to digits Neurological: intact light touch/epicritic sensation b/l intact protective sensation no significant neurological deficits Dermatological: Nails 1-5 b/l appear normal. Webspaces clean and dry 1-4 b/l. Skin appears well hydrated and supple. good color, texture, turgor. No open lesions present. Callus to the plantar aspect of left 5th metatarsal Musculoskeletal/Orthopaedic: Patient has pain to palpation of left 5th metatarsal at site of tailors bunion Foot type is neutral structurally AJ ROM is full with knee extended and flexed 1st MPJ is full when loaded and no pain or crepitus are noted with ROM. MTJ, STJ are full and free of pain and crepitus. +5/5 muscle strength dorsiflexion, plantarflexion, inversion, eversion b/l Radiographs: 3 views left foot reviewed February 12, 2025: I have personally reviewed and interpreted these XR myself: tailors bunion of left foot ASSESSMENT: (M21.622) Tailor's bunion of left foot (primary encounter diagnosis) (M79.672) Foot pain, left (L84) Callus of foot PLAN: 1. History and physical examination performed. 2. XR reviewed with patient and interpreted today 3. Discussed tailors bunion of left foot. Discussed conservative options not limited to wider shoes, gel inserts vs surgcial intervention. (more content not included)...[facility]04-07-2025 NoteHNO ID: [id number] Author: APURVA HUMPHREYS, RN Service: ? Author Type: Registered Nurse Type: Progress Notes Filed: 02/12/2025 11:29 Note Text: Patient presents with: Left Foot - New, Pain AMB ROOMING INTAKE FLOWSHEET DATA Risk Screening Do you have concerns about personal safety or safety in the home?: No Pain Pain Level: 5 (8/10 when pressure applied) Pain Location: Foot-Left Description: Sharp Duration Units: Months Frequency: Intermittent Intervention/Comfort measure: Relaxation Patient presents as referral from Hanh Sharma CNP for left foot pain with tailors bunion and callus. Xray done 01/22/25. States that it has been bothering him for months. Tender to touch, sheets and shoes can bother him. States that he tried a corn pad that helped while using it, but pain returned shortly after. [facility]03-21-2025 Telephone encounter Note* Telephone Encounter - Leora Tejada MA - 01/26/2025 2:05 PM EDT Patient was made aware of the results. Patient verbalizes understanding. Leora Tejada Ma [facility]03-21-2025 Miscellaneous Notes* Telephone Encounter - Leora Tejada MA - 01/26/2025 2:05 PM EDT Patient was made aware of the results. Patient verbalizes understanding. Leora Tejada Ma * Telephone Encounter - Leora Tejada MA - 01/26/2025 1:21 PM EDT ----- Message from Hanh Sharma sent at 01/26/2025 12:57 PM EDT ----- Please let patient know that the x-ray of his foot was normal. * Result Encounter Note - Hanh Sharma APRN.CNP - 01/26/2025 12:57 PM EDT Please let patient know that the x-ray of his foot was normal. documented in this encounterK[facility]03-[facility] Telephone encounter Note * Telephone Encounter - Leora Tejada MA - 01/26/2025 1:21 PM EDT ----- Message from Hanh Sharma sent at 01/26/2025 12:57 PM EDT ----- Please let patient know that the x-ray of his foot was normal. [facility]03-21-2025 Progress note* Result Encounter Note - Hanh Sharma APRN.CNP - 01/26/2025 12:57 PM EDT Please let patient know that the x-ray of his foot was normal. [facility]03-17-2025 History of Present illness Narrative* Shauna Cardona RT(R) - 01/22/2025 3:00 PM EDT Radiology Service Progress Note PATIENT NAME: Roberto De La Cruz DATE OF SERVICE: January 22, 2025 TIME: 2:53 PM PATIENT IDENTITY VERIFICATION COMPLETED USING TWO (2) IDENTIFIERS: Name and Date of confirmedby patient verbally. FALL SCREENING: Has the patient had 2 falls in the last year or 1 fall with injury or currently using an Ambulatory Assistive Device (Walker, Cane, Wheelchair, Crutches, etc.)? 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 SEASONAL: No RADIOLOGY DEPARTMENT: General X-ray: Exam(s) Completed: Lower Extremity X- Ray(s): Foot, Left PERIPHERAL IV DATA: Not applicable SIGNED BY: RT Emmie(R) January 22, 2025 2:53 PM documented in this encounterK[facility]03-17-2025 NoteHNO ID: [id number] Author: SHAUNA CARDONA RT(Kamla) Service: ? Author Type: Rug Washer Type: Progress Notes Filed: 01/22/2025 15:03 Note Text: Radiology Service Progress Note PATIENT NAME: Roberto De La Cruz DATE OF SERVICE: January 22, 2025 TIME: 2:53 PM PATIENT IDENTITY VERIFICATION COMPLETED USING TWO (2) IDENTIFIERS: Name and Date of confirmed by patient verbally. FALL SCREENING: Has the patient had 2 falls in the last year or 1 fall with injury or currently using an Ambulatory Assistive Device (Walker, Cane, Wheelchair, Crutches, etc.)? 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 SEASONAL: No RADIOLOGY DEPARTMENT: General X-ray: Exam(s) Completed: Lower Extremity X-Ray(s): Foot, Left PERIPHERAL IV DATA: Not applicable SIGNED BY: RT Emmie(R) January 22, 2025 2:53 [facility]03-17-2025 Instructions* Patient Instructions* Hanh Sharma APRN.CNP - 01/22/2025 2:26 PM EDT 1) Augmentin 2 x day for 10 days- take with food 2) Saline nasal spray frequently while on antibiotic 3) File callus with fingernail file 4) Get some corn pads to alleviate pressure 5) Get X-ray 6) Consult podiatry documented in this encounterK[facility]03-17-2025 NoteHNO ID: [id number] Author: HANH SHARMA APRN.CNP Service: ? Author Type: Nurse Practitioner Type: Progress Notes Filed: 01/22/2025 14:34 Note Text: This is a 64 year old male who presents today with: Patient presents with: Pain: Left, lateral foot and calf pain Headache HISTORY OF PRESENT ILLNESS: Roberto De La Cruz is a 64 year old male. Patient presents with: Pain: Left, lateral foot and calf pain Headache Left lateral foot pain that is burning pain. Radiated clear up into calf yesterday. 5 10 - yesterday 810 Started about 2 weeks ago Intermittent Waxes and wanes Frontal headache Lately headache every day Doesn't usually get a headache Had flu this winter. Cough medicine helped. Feels a little out of sorts. Ongoing for a couple months Cough and sinus congestion. No sore throat Cough non-productive No energy No ataxia No nausea No fever but chills PAST MEDICAL HISTORY: PAST MEDICAL HISTORY Diagnosis Date A-fib (HCC) 04/2020 PAST SURGICAL HISTORY Procedure Laterality Date COLONOSCOPY FLX DX W/COLLJ SPEC WHEN PFRMD 11/27/2016 Colonoscopy LAPAROSCOPIC CHOLECYSTECTOMY 06/20/2019 Dr. Gagan Richardson PAST SURGICAL HISTORY OF finger surgery x 2 TONSILLECTOMY PRIMARY/SECONDARY Tonsillectomy and adnoids VENOUS EXTREMITY UNILATERAL 10/08/2021 US neg DVT left lower leg ALLERGIES Iodinated Contrast Media MEDICATIONS Current Outpatient Medications Medication Sig Promethazine-DM (PHENERGAN-DM) 6.25-15 mg/5 mL syrup Take 5 mL by mouth four times a day as needed. sertraline (ZOLOFT) 50 mg tablet Take 1 tablet by mouth once daily. No current facility-administered medications for this visit. FAMILY HISTORY Problem Relation Age of Onset Alzheimer's Disease Mother Cancer Father brain tumor ,lung removed and kidney removed COPD Brother Osteoporosis Paternal Grandfather Alzheimer's Disease Sister Social History Tobacco Use Smoking status: Never Smokeless tobacco: Never Vaping Use Vaping status: Never Used Substance Use Topics Alcohol use: Yes Comment: occasional Drug use: No EXAM: BP 128/74 Pulse 64 Temp 36.7 ?C (98.1 ?F) (Left Tympanic) Wt 118.4 kg (261 lb) SpO2 95% BMI 35.40 kg/m? PHYSICAL EXAM: Physical Exam Vitals reviewed. Constitutional: Appearance: Normal appearance. HENT: Head: Normocephalic. Right Ear: Ear canal and external ear normal. There is no impacted cerumen. Left Ear: Ear canal and external ear normal. There is no impacted cerumen. Ears: Comments: Left ear bulging Nose: No congestion or rhinorrhea. Comments: Pressure and pain, maxillary and frontal Mouth/Throat: Pharynx: Oropharyngeal exudate present. No posterior oropharyngeal erythema. Cardiovascular: Rate and Rhythm: Normal rate and regular rhythm. Pulses: Normal pulses. Heart sounds: Normal heart sounds. Pulmonary: Effort: Pulmonary effort is normal. Comments: Left lower lobe crackles, otherwise CTA Abdominal: General: Bowel sounds are normal. Palpations: Abdomen is soft. Musculoskeletal: General: Normal range of motion. Comments: Left lateral foot- ADONAY joint with callus, red, cool, larger than right- burning pain with palpation Skin: General: Skin is warm and dry. Neurological: Mental Status: He is alert and oriented to person, place, and time. Psychiatric: Mood and Affect: Mood normal. Behavior: Behavior normal. LABS: ASSESSMENT/PLAN: 1. Foot pain, left - ICD9: 729.5, ICD10: M79.672 (primary diagnosis) Tailors bunion vs with stress fracture - XR FOOT GENERAL 3V AP/LAT/OBL LEFT - CONSULT TO PODIATRY - File callus - Get bunion pads 2. Acute maxillary sinusitis, recurrence not specified - ICD9: 461.0, ICD10: J01.00 - Will begin treatment with Augmentin 875 mg PO BID for 10 days - AMOXICILLIN 875 MG-POTASSIUM CLAVULANATE 125 MG TABLET - Saline nasal spray frequently while on antibiotic - Follow up in 2 weeks Discussed treatment plan and patient voices understanding. Patient's questions answered appropriately. Medications and potential side effects were discussed and patient voices understanding. Return to the office as scheduled or as needed for worsening/no improvement. [facility] APRN.[facility] History of Present illness Narrative* Hanh Sharma APRN.ALESHIA - 01/22/2025 2:14 PM EDT This is a 64 year old male who presents today with: Patient presents with: Pain: Left, lateral foot and calf pain Headache HISTORY OF PRESENT ILLNESS: Roberto De La Cruz is a 64 year old male. Patient presents with: Pain: Left, lateral foot and calf pain Headache Left lateral foot pain that is burning pain. Radiated clear up into calf yesterday. 5/ 10 - yesterday 8/10 Started about 2 weeks ago Intermittent Waxes and wanes Frontal headache Lately headache every day Doesn't usually get a headache Had flu this winter. Cough medicine helped. Feels a little out of sorts. Ongoing for a couple months Cough and sinus congestion. No sore throat Cough non-productive No energy No ataxia No nausea No fever but chills PAST MEDICAL HISTORY: PAST MEDICAL HISTORY Diagnosis Date A-fib (HCC) 04/2020 PAST SURGICAL HISTORY Procedure Laterality Date COLONOSCOPY FLX DX W/COLLJ SPEC WHEN PFRMD 11/27/2016 Colonoscopy LAPAROSCOPIC CHOLECYSTECTOMY 06/20/2019 Dr. Gagan Richardson PAST SURGICAL HISTORY OF finger surgery x 2 TONSILLECTOMY PRIMARY/SECONDARY <AGE 14 Tonsillectomy and adnoids VENOUS EXTREMITY UNILATERAL 10/08/2021 US neg DVT left lower leg ALLERGIES Iodinated Contrast Media MEDICATIONS Current Outpatient Medications Medication Sig Promethazine-DM (PHENERGAN-DM) 6.25-15 mg/5 mL syrup Take 5 mL by mouth four times a day as needed. sertraline (ZOLOFT) 50 mg tablet Take 1 tablet by mouth once daily. No current facility-administered medications for this visit. FAMILY HISTORY Problem Relation Age of Onset Alzheimer's Disease Mother Cancer Father brain tumor ,lung removed and kidney removed COPD Brother Osteoporosis Paternal Grandfather Alzheimer's Disease Sister Social History Tobacco Use Smoking status: Never Smokeless tobacco: Never Vaping Use Vaping status: Never Used Substance Use Topics Alcohol use: Yes Comment: occasional Drug use: No EXAM: BP 128/74 Pulse 64 Temp 36.7 C (98.1 F) (Left Tympanic) Wt 118.4 kg (261 lb) SpO2 95% BMI35.40 kg/m PHYSICAL EXAM: Physical Exam Vitals reviewed. Constitutional: Appearance: Normal appearance. HENT: Head: Normocephalic. Right Ear: Ear canal and external ear normal. There is no impacted cerumen. Left Ear: Ear canal and external ear normal. There is no impacted cerumen. Ears: Comments: Left ear bulging Nose: No congestion or rhinorrhea. Comments: Pressure and pain, maxillary and frontal Mouth/Throat: Pharynx: Oropharyngeal exudate present. No posterior oropharyngeal erythema. Cardiovascular: Rate and Rhythm: Normal rate and regular rhythm. Pulses: Normal pulses. Heart sounds: Normal heart sounds. Pulmonary: Effort: Pulmonary effort is normal. Comments: Left lower lobe crackles, otherwise CTA Abdominal: General: Bowel sounds are normal. Palpations: Abdomen is soft. Musculoskeletal: General: Normal range of motion. Comments: Left lateral foot- ADONAY joint with callus, red, cool, larger than right- burning pain withpalpation Skin: General: Skin is warm and dry. Neurological: Mental Status: He is alert and oriented to person, place, and time. Psychiatric: Mood and Affect: Mood normal. Behavior: Behavior normal. LABS: ASSESSMENT/PLAN: 1. Foot pain, left - ICD9: 729.5, ICD10: M79.672 (primary diagnosis) Tailors bunion vs with stress fracture - XR FOOT GENERAL 3V AP/LAT/OBL LEFT - CONSULT TO PODIATRY - File callus - Get bunion pads 2. Acute maxillary sinusitis, recurrence not specified - ICD9: 461.0, ICD10: J01.00 - Will begin treatment with Augmentin 875 mg PO BID for 10 days - AMOXICILLIN 875 MG-POTASSIUM CLAVULANATE 125 MG TABLET - Saline nasal spray frequently while on antibiotic - Follow up in 2 weeks Discussed treatment plan and patient voices understanding. Patient's questions answered appropriately. Medications and potential side effects were discussed and patient voices understanding. Return to the office as scheduled or as needed for worsening/no improvement. Hanh Sharma APRN.ALESHIA documented in this encounterK[facility]03-[facility] Evaluation note* Diagnosis Onset Date Resolution Status Admit Date Paroxysmal atrial fibrillation acute January 15, 2025 2:28pm [facility] Work Phone: 1(512) 113-368402-17-2025 Physician Emergency department Note* Chandrika Bridges PA-C - 12/25/2024 9:35 PM EST Images from the original note were not included. HPI Chief Complaint Patient presents with Leg Pain Pt c/o a painful lump on right upper ruiz since yesterday afternoon. Denies injury, no bruising/redness/heat. Patient presents with right knee pain. Patient noticed a bump on the front of his knee just the other day. He has had pain for a while now. Denies any fall or injury. No heavy lifting. He cannot recall any change in his activity. No weakness. History provided by: Patient Patient History No past medical history on file. No past surgical history on file. No family history on file. Social History Tobacco Use Smoking status: Not on file Smokeless tobacco: Not on file Substance Use Topics Alcohol use: Not on file Drug use: Not on file Physical Exam ED Triage Vitals Temperature Heart Rate Respirations BP 12/25/24201312/25/24201312/25/24201312/25/242013 36.5 C (97.7 F) 66 20 125/86 Pulse Ox Temp src Heart Rate Source Patient Position 12/25/242013 -- 12/25/24205712/25/242057 96 % Monitor Sitting BP Location FiO2 (%) 12/25/242057 -- Left arm Physical Exam Vitals and nursing note reviewed. Constitutional: General: He is not in acute distress. Appearance: Normal appearance. He is well-developed and well-groomed. He is obese. He is not ill-appearing or toxic-appearing. HENT: Head: Normocephalic. Right Ear: External ear normal. Left Ear: External ear normal. Nose: Nose normal. Mouth/Throat: Mouth: Mucous membranes are moist. Eyes: General: No scleral icterus. Conjunctiva/sclera: Conjunctivae normal. Cardiovascular: Pulses: Dorsalis pedis pulses are 2+ on the right side. Posterior tibial pulses are 2+ on the right side. Musculoskeletal: Right knee: No swelling, deformity, effusion, erythema, ecchymosis, lacerations, bony tenderness orcrepitus. Normal range of motion. Tenderness (At the insertion of the patellar tendon to the tibia)present over the patellar tendon. Normal alignment, normal meniscus and normal patellar mobility. Right lower leg: No deformity, tenderness or bony tenderness. No edema. Legs: Skin: General: Skin is warm. Capillary Refill: Capillary refill takes less than 2 seconds. Findings: No lesion or rash. Neurological: General: No focal deficit present. Mental Status: He is alert and oriented to person, place, and time. Cranial Nerves: No cranial nerve deficit or facial asymmetry. Sensory: No sensory deficit. Motor: No weakness. Gait: Gait normal. Psychiatric: Attention and Perception: Attention and perception normal. Mood and Affect: Mood and affect normal. Speech: Speech normal. Behavior: Behavior normal. Behavior is cooperative. Thought Content: Thought content normal. Cognition and Memory: Cognition and memory normal. Judgment: Judgment normal. ED Course & MDM Diagnoses as of 12/25/24 7700 Bursitis of other bursa of right knee No data recorded Medical Decision Making Patient presents with right knee pain. Patient noticed a bump on the front of his knee just the other day. He has had pain for a while now. Denies any fall or injury. No heavy lifting. He cannot recall any change in his activity. No weakness. Ddx: Fracture, contusion, strain, sprain, tendinitis, bursitis, other Will obtain x-rays no acute findings were noted Exam is consistent with patellar tendon bursitis. Patient encouraged to use a patellar strap as well as ice elevate and rest. Follow-up with orthopedics. He is given a prescription for Motrin. He could also use Voltaren gel to help with symptoms. Patient encouraged close follow-up. Patient discharged home in improved stable condition Amount and/or Complexity of Data Reviewed Radiology: ordered and independent interpretation performed. Decision-making details documented in ED Course. Risk Diagnosis or treatment significantly limited by social determinants of health. Procedure Procedures Chandrika Bridges PA-C 12/25/242138 [facility] Work Phone: 1(987) 792-472202-17-2025 Emergency department Note* Chandrika Bridges PA-C - 12/25/2024 9:35 PM EST Images from the original note were not included. HPI Chief Complaint Patient presents with Leg Pain Pt c/o a painful lump on right upper ruiz since yesterday afternoon. Denies injury, no bruising/redness/heat. Patient presents with right knee pain. Patient noticed a bump on the front of his knee just the other day. He has had pain for a while now. Denies any fall or injury. No heavy lifting. He cannot recall any change in his activity. No weakness. History provided by: Patient Patient History No past medical history on file. No past surgical history on file. No family history on file. Social History Tobacco Use Smoking status: Not on file Smokeless tobacco: Not on file Substance Use Topics Alcohol use: Not on file Drug use: Not on file Physical Exam ED Triage Vitals Temperature Heart Rate Respirations BP 12/25/24201312/25/24201312/25/24201312/25/242013 36.5 C (97.7 F) 66 20 125/86 Pulse Ox Temp src Heart Rate Source Patient Position 12/25/242013 -- 12/25/24205712/25/242057 96 % Monitor Sitting BP Location FiO2 (%) 12/25/242057 -- Left arm Physical Exam Vitals and nursing note reviewed. Constitutional: General: He is not in acute distress. Appearance: Normal appearance. He is well-developed and well-groomed. He is obese. He is not ill-appearing or toxic-appearing. HENT: Head: Normocephalic. Right Ear: External ear normal. Left Ear: External ear normal. Nose: Nose normal. Mouth/Throat: Mouth: Mucous membranes are moist. Eyes: General: No scleral icterus. Conjunctiva/sclera: Conjunctivae normal. Cardiovascular: Pulses: Dorsalis pedis pulses are 2+ on the right side. Posterior tibial pulses are 2+ on the right side. Musculoskeletal: Right knee: No swelling, deformity, effusion, erythema, ecchymosis, lacerations, bony tenderness orcrepitus. Normal range of motion. Tenderness (At the insertion of the patellar tendon to the tibia)present over the patellar tendon. Normal alignment, normal meniscus and normal patellar mobility. Right lower leg: No deformity, tenderness or bony tenderness. No edema. Legs: Skin: General: Skin is warm. Capillary Refill: Capillary refill takes less than 2 seconds. Findings: No lesion or rash. Neurological: General: No focal deficit present. Mental Status: He is alert and oriented to person, place, and time. Cranial Nerves: No cranial nerve deficit or facial asymmetry. Sensory: No sensory deficit. Motor: No weakness. Gait: Gait normal. Psychiatric: Attention and Perception: Attention and perception normal. Mood and Affect: Mood and affect normal. Speech: Speech normal. Behavior: Behavior normal. Behavior is cooperative. Thought Content: Thought content normal. Cognition and Memory: Cognition and memory normal. Judgment: Judgment normal. ED Course & MDM Diagnoses as of 12/25/242138 Bursitis of other bursa of right knee No data recorded Medical Decision Making Patient presents with right knee pain. Patient noticed a bump on the front of his knee just the other day. He has had pain for a while now. Denies any fall or injury. No heavy lifting. He cannot recall any change in his activity. No weakness. Ddx: Fracture, contusion, strain, sprain, tendinitis, bursitis, other Will obtain x-rays no acute findings were noted Exam is consistent with patellar tendon bursitis. Patient encouraged to use a patellar strap as well as ice elevate and rest. Follow-up with orthopedics. He is given a prescription for Motrin. He could also use Voltaren gel to help with symptoms. Patient encouraged close follow-up. Patient discharged home in improved stable condition Amount and/or Complexity of Data Reviewed Radiology: ordered and independent interpretation performed. Decision-making details documented in ED Course. Risk Diagnosis or treatment significantly limited by social determinants of health. Procedure Procedures Chandrika Bridges PA-C 12/25/242138 [facility] Work Phone: 1(477) 689-792102-17-2025 Hospital Discharge instructions* Discharge Instructions* Chandrika Bridges PA-C - 12/25/2024 9:26 PM EST Follow-up with either orthopedist listed on your discharge papers. May use ibuprofen for comfort. May also use a knee tendon-strap to help with symptoms. Ice and rest. * Attachments The following attachments cannot be sent through Care Everywhere. * Bursitis ED ([place]) documented in [facility] encounterUnMer[facility] Work Phone: 1(823) 675-199801-15-2025 Telephone encounter Note* Telephone Encounter - James Brenner LPN - 11/22/2024 10:51 AM EST Pt notified of results and instructions, pt verbalizes understanding. James Brenner LPN [facility]01-15-2025 Miscellaneous Notes* Telephone Encounter - James Brenner LPN - 11/22/2024 10:51 AM EST Pt notified of results and instructions, pt verbalizes understanding. James Brenner LPN * Telephone Encounter - Kenneth Beckett MD - 11/22/2024 8:10 AM EST Let him know his rsv, covid and flu are negative. Appears to be viral at this point. Call if worsens or not better by end of the week documented in this encounterK[facility]01-[facility]-2025 Telephone encounter Note * Telephone Encounter - Kenneth Beckett MD - 11/22/2024 8:10 AM EST Let him know his rsv, covid and flu are negative. Appears to be viral at this point. Call if worsens or not better by end of the week [facility]01-14-2025 NoteHNO ID: [id number] Author: KENNETH BECKETT MD Service: ? Author Type: Physician Type: Progress Notes Filed: 11/21/2024 15:13 Note Text: Patient presents with: Diarrhea HPI: Patient presents today for office visit for acute illness. Complaints of coughing and diarrhea that came on suddenly about 3 days ago. Diarrhea is very watery. Feels very fatigued and rundown. Duration: 3 days Fever: No. Headache: Yes. Sore throat: No. Ear pain: No. Nasal drainage: Yes. Cough: Yes. Shortness of breath: Sometimes. Nausea: No. Vomiting: No. Diarrhea: Yes.no formed stool. Very watery with severe gas. Still drinking ok and urinating well. Has been taking tylenol otc. No recent travel hx or antibiotic usage. MEDICATIONS: Current Outpatient Medications Medication Sig sertraline (ZOLOFT) 50 mg tablet Take 1 tablet by mouth once daily. No current facility-administered medications for this visit. ALLERGIES: ALLERGIES Allergen Reactions Iodinated Contrast * Other: See Comments Kidney failure PAST MEDICAL HISTORY Diagnosis Date A-fib (HCC) 04/2020 PAST SURGICAL HISTORY Procedure Laterality Date COLONOSCOPY FLX DX W/COLLJ SPEC WHEN PFRMD 11/27/2016 Colonoscopy LAPAROSCOPIC CHOLECYSTECTOMY 06/20/2019 Dr. Gagan Richardson PAST SURGICAL HISTORY OF finger surgery x 2 TONSILLECTOMY PRIMARY/SECONDARY Tonsillectomy and adnoids VENOUS EXTREMITY UNILATERAL 10/08/2021 US neg DVT left lower leg FAMILY HISTORY Problem Relation Age of Onset Alzheimer's Disease Mother Cancer Father brain tumor ,lung removed and kidney removed COPD Brother Osteoporosis Paternal Grandfather Alzheimer's Disease Sister Social History Tobacco Use Smoking status: Never Smokeless tobacco: Never Vaping Use Vaping status: Never Used Substance Use Topics Alcohol use: Yes Comment: occasional Drug use: No Reviewed current medications, allergies, past medical history, surgical history, family history and social history today. REVIEW OF SYSTEMS All other reviewed and negative other than HPI. VITALS: BP 112/74 Pulse 83 Temp 37.4 ?C (99.3 ?F) Ht 182.9 cm (6') Wt 116.6 kg (257 lb) SpO2 98% BMI 34.86 kg/m? Last 4 Encounter Wt Readings: Date: Wt: 11/21/2024 116.6 kg (257 lb) 08/06/2024 112.9 kg (249 lb) 05/29/2024 115 kg (253 lb 8.5 oz) 04/01/2024 114.3 kg (252 lb) PHYSICAL EXAMINATION: General appearance: Well appearing, alert, in no acute distress, well-hydrated, well nourished. Skin: Skin color, texture, turgor normal, no suspicious rashes or lesions Head: Normocephalic, no masses, lesions, tenderness or abnormalities Eyes: Anicteric sclera. Pupils are equally round and reactive to light. Extraocular movements are intact. Ears: External ears normal, canals clear Nose/Sinuses: Nares normal, septum midline, mucosa normal, no drainage or sinus tenderness Oropharynx: Lips, mucosa, and tongue normal, teeth and gums normal, oropharynx normal Neck: Supple, no adenopathy Lungs: Lungs clear to auscultation. No wheezing, rhonchi, rales Heart: RRR without murmur, gallop, or rubs. No ectopy Abdomen: Normal abdominal exam, Abdomen soft, non-tender. Bowel sounds normal. No masses, organomegaly Extremities: No deformities, edema, skin discoloration, clubbing or cyanosis. Good capillary refill. Musculoskeletal: No joint swelling, deformity, or tenderness ASSESSMENT/PLAN: 1. URI, acute - ICD9: 465.9, ICD10: J06.9 (primary diagnosis) - Discussed viral etiology and rationale for treatment. - Symptomatic treatment with prn analgesia - Supportive care with fluids and rest - COVID AND INFLUENZA A/B AND RSV PCR, ROUTINE - PROMETHAZINE-DM 6.25 MG-15 MG/5 ML ORAL SYRUP 2. Diarrhea of presumed infectious origin - ICD9: 009.3, ICD10: R19.7 - COVID AND INFLUENZA A/B AND RSV PCR, ROUTINE - PROMETHAZINE-DM 6.25 MG-15 MG/5 ML ORAL SYRUP Kenneth Beckett, [facility]12-23-2024 History of Present illness Narrative* Jhon Garcia PA-C - 10/30/2024 10:45 AM EST Subjective: Roberto is approximately 10 day(s) s/p Left endoscopic carpal tunnel release and left ulnocarpal joint injection; DOS: 10/20/24. Pain is minimal. He is taking Tylenol prn for pain relief. He denies significant complaints. He denies drainage from his incision. The patient is very pleased with his early postoperative results and reports significant improvement in his hand paresthesias following surgery. He has only noticed a few episodes of fleeting hand paresthesias. He has expected mild swelling and discomfort in the base of his palm. He feels his wristpain is significantly improved following the injection at the time of his surgery. He is accompanied today by his . He is hopeful to proceed with endoscopic carpal tunnel release on the right once he is fully recovered from his left-sided surgery. 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 He is approved to remain off of work for an additional month and would like to proceed with work restrictions as planned. Objective: BP 106/82 Pulse 58 Ht 6' 2 (1.88 m) Wt 248 lb (112 kg) BMI 31.84 kg/m Left Upper Extremity Skin: Incision(s) is healed with intact Prolene suture. No drainage. No erythema. Edema: Minimal surrounding edema. Perfusion: Brisk capillary refill to all digits with 2+ radial pulse. Sensation: LEFT Hand 2-point discrimination (mm) Thumb Index Long Ring Small r u r u r u r u r u 5 5 5 5 5 5 5 5 5 5 Median Ulnar ROM: Wrist: Flexion 45 Extension 60 Supination 80 Pronation 80 Fingers flex to palm. XRay: None Assessment Diagnosis Plan 1. Carpal tunnel syndrome of left wrist 2. S/P endoscopic carpal tunnel release 3. DRUJ (distal radioulnar joint) post-traumatic arthritis, left Plan I would like Roberto to gradually return to normal activities without restrictions and begin wrist and hand range of motion exercises without limits to include nerve gliding exercises. The patient was advised to advance weightbearing activities using pain as a guide. Sutures were removed today in e office without complication. Expected postoperative recovery course was discussed with the patient including pillar pain and length of time for maximum improvement and return of full strength whichcan take up to a year. The patient was advised to perform edema control and scar tissue massage. The patient was provided with home going exercise instructions. his questions were answered today in the office. As long as he is gradually improving as expected, I would like the patient to follow up on an as needed basis. He was advised to reach out to the office when he is ready to schedule his right sided endoscopic carpal tunnel release. He is comfortable with the plan. Immobilization: NO immobilization required at this point - FULL ROM encouraged Weight Bearing: Weight bearing as tolerated Rehabilitation: Home Exercises: full range of motion and to be gradual weight bearing. Instructionsreviewed today in office. Dr. Alanis will see Roberto back on an as needed basis to see how he is doing. Roberto knows to callthe office with any questions or concerns in the interim. Future Imaging: None Sutures were removed in office today. No dressing was applied to left wrist. Patient tolerated wellwith no concerns. Performed by: NM Electronically signed by Jhon Garcia PA-C to Edinson Alanis M.D. Hand & Upper Extremity Surgery 10/30/2024 at 5:02 PM. (Please note that portions of this note may have been completed with a voice recognition program. Efforts were made to edit the dictations but occasionally words are mis-transcribed.) [facility] Instructions* Patient Instructions* Kathy White, [facility] - 10/30/2024 10:45 AM EST Images from the original note were not included. THERAPY TO MAKE YOUR HANDS LESS TENDER Hand injuries are often very tender during the early healing phase. Often, tenderness in scars getsworse starting one to two weeks after injury or surgery. Unfortunately, this tenderness does not always go away by itself. The nerves in the hand are special and are more sensitive than other parts of the body. After any injury, the skin of the hand must get used to being touched again for the tenderness to go away. If you do not touch the sore areas of your hand, they may remain very sensitive and tender. The techniques of PERCUSSION and FRICTION MASSAGE outlined in this pamphlet will help speed up the process of recovery from tenderness in your hands and fingers. The goal of these exercises is to make your wounds less tender. It is normal for these exercises bran somewhat uncomfortable while doing them or shortly afterwards. If the exercises are too painful,try using less pressure. If that does not work, then give yourself a several hour break and try again. If pain again is a problem, speak with your doctor or your therapist. These exercises will not be recommended until it is safe to do them. PERCUSSION (Tapping): This technique activates the automatic reflex which makes us ignore things which are very repetitive. This reflex will dull the tenderness in areas of your hand that are touched repeatedly. Here is how to do percussion: 1. Tap lightly on the area of your hand which is tender. You can tap on the sensitive area with a finger tip of your other hand or with a light object such as a pencil. 2. Find the spot which is the most tender. 3. Note the time, and begin to tap rapidly (2-3 times a second), lightly and continuously on the most tender area. 4. Keep tapping without a break for three minutes or until you notice the feeling in the area change. The area may start to feel numb or it may simply feel a little bit less tender. 5. Take a minute rest and begin again. You may find that a different area is now the most tender spot. This exercise should be done as many times as possible during the day. It takes many thousands of taps to really change the tenderness in a sore area. The sooner you accumulate that many taps, the sooner your wounds will be more comfortable. FRICTION MASSAGE: The goal of friction massage is to STRETCH the scar tissue beneath the skin. As with percussion, itshould be done many times during the day. This exercise not only helps improve tenderness, but helps restore the contour of the skin to a more normal appearance. Here is how to do friction massage: 1. Place a finger tip of your other hand against the central area of the scar. 2. Mentally note four directions that the skin can be pushed sideways: near, far, left and right. 3. With your finger tip pressed firmly against the scar and without sliding, gently but steadily push the skin to one side as if you were trying to slide the skin off of the bone. Hold this position for five seconds. 4. Briefly relax and then repeat this maneuver in one of the other directions. Make sure you attempt to slide the skin in all four directions. 5. If the scar is wider than your finger tip, repeat this stretching exercise on every point of thescar. This exercise is done without any skin lubrication. Remember to do this exercise before applying any antibiotic ointment or moisturizing creams. [facility]12[facility]13[facility] NotePatient: Saulo De La Cruz Procedure Summary Date: 10/20/24 Room / Location: [address] Operating Room Anesthesia Start: 1143 Anesthesia Stop: 1216 Procedures: ENDOSCOPIC LEFT CARPAL TUNNEL RELEASE, LEFT ULNOCARPAL JOINT INJECTION (Left: Wrist) ARTHROCENTESIS ASPIRATION AND/OR INJECTION INTERMEDIATE JOINT OR BURSA (Left) Diagnosis: Pain in right wrist Pain in left wrist Carpal tunnel syndrome, left upper limb Post-traumatic osteoarthritis, left wrist Post-traumatic osteoarthritis, right wrist Carpal tunnel syndrome, right upper limb Surgeons: Edinson Alanis MD Responsible Provider: No Anesthesiologist - Tabitha/MD Isabella Anesthesia Type: general, TIVA ASA Status: 2 Anesthesia Type: general, TIVA Vitals Value Taken Time BP 112/76 10/20/24 1241 Temp 36.6 ?C (97.8 ?F) 10/20/24 1210 Pulse 64 10/20/24 1245 Resp 10 10/20/24 1241 SpO2 92 % 10/20/24 1245 Vitals shown include unfiled device data. Anesthesia Post Evaluation Patient location during evaluation: PACU Patient participation: complete - patient participated Level of consciousness: awake and alert Pain management: satisfactory to patient Airway patency: patent Dental Injury: no Cardiovascular status: acceptable, blood pressure returned to baseline and hemodynamically stable Respiratory status: acceptable and spontaneous ventilation Hydration status: euvolemic Nausea/Vomiting: controlled No notable events documented. Patient can be discharged once all PACU criteria has been met.[facility]12-13-2024 Note* Perioperative Nursing Note - Yoli Sr RN - 10/20/2024 1:10 PM EST Pt and family verbalized understanding of recovery instructions, pt verbalized a readiness to be discharged home. Pt discharged home via wheelchair accompanied by RN/volunteer. Pt has had all their belongings returned to them at [id number] Note* Perioperative Nursing Note - Yoli Sr RN - 10/20/2024 1:10 PM EST Pt and family verbalized understanding of recovery instructions, pt verbalized a readiness to be discharged home. Pt discharged home via wheelchair accompanied by RN/volunteer. Pt has had all their belongings returned to them at discharge [id number] Miscellaneous Notes* Perioperative Nursing Note - Yoli Sr RN - 10/20/2024 1:10 PM EST Pt and family verbalized understanding of recovery instructions, pt verbalized a readiness to be discharged home. Pt discharged home via wheelchair accompanied by RN/volunteer. Pt has had all their belongings returned to them at discharge * Perioperative Nursing Note - Yoli rS RN - 10/20/2024 12:25 PM EST Pt arousable- oral airway removed- will continue to monitor * Perioperative Nursing Note - Yoli Sr RN - 10/20/2024 12:12 PM EST Pt received from OR via cart, spont. Resp. With CLINICAL TRIAL EDUCATOR in attendance. Placed on monitor. Monitor alarms on in PACU , pt has oral airway will continue monitor * Op Note - Edinson Alanis MD - 10/20/2024 11:43 AM EST [facility] MAIN OR [address] [place] [address] Dept: [phone] Loc: [phone] Operative Report Patient Name: Roberto De La Cruz Date of : 1960 Date of Surgery: 10/20/24 Preoperative Diagnosis: LEFT carpal tunnel syndrome, LEFT wrist pain Postoperative Diagnosis: Same Procedure: Endoscopic LEFT carpal tunnel release with LEFT wrist injection Surgeon: Edinson Alanis MD 1st Assist: Hammad Edwards MD 2nd Assist: Jhon Garcia PA-C Implants: None Specimens Removed: None Anesthesia: MAC Local Anesthesia: 1% lidocaine with epinephrine (1:100,000) for a total of 10ml into the subcutaneous tissues of the operative site(s) Tourniquet: Brachium Estimated Blood Loss: <5ml Pre Operative Antibiotics: Yes Indications: Mr. Roberto De La Cruz is a 63 y.o. year-old male with LEFT carpal tunnel syndrome who failed conservative management and elected to proceed with surgical intervention. I have discussed withhim, preoperatively, the complications, limitations, expectations, alternatives, and risks of surgical intervention to include but not be limited to neurovascular injury and incomplete nerve recoverywhich he has demonstrated understanding. No guarantees were given or implied. After having all of his questions answered to his satisfaction, Mr. Roberto De La Cruz has provided written informed consent to proceed. Please see previous notes for full operative risk discussion. Procedure: Roberto De La Cruz was identified in the preoperative waiting area. His operative site was initialed and consent was reviewed. Final questions were answered. He was brought to the operating room and placed in the supine position. All bony prominences were well padded. The operative extremitywas prepped and draped in the usual sterile fashion. A surgical timeout was then performed with thepatient's identification, the procedure to be performed being reviewed, verification that the patient had received preoperative antibiotics if indicated, and verification of the correct surgical site. 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 Fire risk was asse ssed. Local was infiltrated into the soft tissues of the volar forearm and mid palm. An esmarch bandage was used to exsanguinate the limb and the tourniquet was inflated to 250mm Hg. A 1 cm transverse incision was made approximately 1 cm proximal to the distal volar wrist crease and just ulnar to the midline. Sharp dissection was carried down through the skin only and then blunt dissection was carried down to the level of the volar forearm fascia. A transverse incision was madethrough the fascia to acces the carpal canal. A dilator was placed within the carpal canal extending in line with the hook of the hamate. The camera was then introduced and the distal extent of the transverse carpal ligament was easily identified. The blade was deployed at this location and retracted about 1 cm. The camera was then advanced to ensure that all transverse fibers were adequately decompressed. The same stepwise sequence was performed to release the remaining fibers of the transverse carpal ligament from distal to proximal. At no time during the procedure did I visualize any neurovascular structures or tendons. The blade was retracted to the level of the skin to ensure that the entire transverse ligament as well as the most distal volar forearm fascia had been adequately decomp ressed. A synovial elevator was used to palpate the the carpal canal to ensure a thorough decompression had been achieved. The dermal layer was closed with a running non absorbable suture followed bysteri strips. The remaining local was placed in the subcutaneous tissues of the mid palm for post operative pain control and additional hemostasis. The wound was dressed gauze, cast padding, and a loosely applied AJ bandage. The tourniquet was let down and the hand pinked up nicely with a brisk capillary refill in all 5 digits. Procedure Note: Wrist Cortisone Injection The LEFT wrist was identified as the injection site. I discussed the risks/benefits of a corticosteroid injection to include but not be limited to infection, subcutaneous fat atrophy, elevated blood glucose, local redness and pain. After discussion of the risk/benefits the patient elected to proceed. Under sterile conditions, the ulnocarpal joint was injected with a mixture of 1 mL of 1% Lidocaine and 1 mL of Celestone (6mg/mL). A sterile bandage was applied. Roberto tolerated the procedure well without complication. I advised Roberto of the expected response, possible reactions and the instructions for care of hiswrist. Mr. Roberto De La Cruz was awakened from anesthesia having tolerated the procedure without apparent complication and was taken to the recovery room in stable condition. POST OPERATIVE PLAN PWB <5lbs until suture removal Nerve gliding, soft tissue massage, gradual strengthening at 2 wks Outpatient Follow-up XRays: No Edinson Alanis MD 10/20/2024 , 5:26 PM [facility]13-[facility] Note* Perioperative Nursing Note - Yoli Sr RN - 10/20/2024 12:25 PM EST Pt arousable- oral airway removed- will continue to monitor [id number] Note* Perioperative Nursing Note - Yoli Sr RN - 10/20/2024 12:25 PM EST Pt arousable- oral airway removed- will continue to monitor [facility] [id number] NotePatient: Saulo De La Cruz Procedure Summary Date: 10/20/24 Room / Location: [address] Operating Room Anesthesia Start: 1143 Anesthesia Stop: 1216 Procedures: ENDOSCOPIC LEFT CARPAL TUNNEL RELEASE, LEFT ULNOCARPAL JOINT INJECTION (Left: Wrist) ARTHROCENTESIS ASPIRATION AND/OR INJECTION INTERMEDIATE JOINT OR BURSA (Left) Diagnosis: Pain in right wrist Pain in left wrist Carpal tunnel syndrome, left upper limb Post-traumatic osteoarthritis, left wrist Post-traumatic osteoarthritis, right wrist Carpal tunnel syndrome, right upper limb Surgeons: Edinson Alanis MD Responsible Provider: Tayler Thomson APRN - CLINICAL TRIAL EDUCATOR Anesthesia Type: general, TIVA ASA Status: 2 Anesthesia Type: general, TIVA Vitals Value Taken Time BP 97/68 10/20/24 1215 Temp 36.6 ?C (97.8 ?F) 10/20/24 1210 Pulse 74 10/20/24 1216 Resp 15 10/20/24 1216 SpO2 94 % 10/20/24 1216 Vitals shown include unfiled device data. Anesthesia Post Evaluation Patient location during evaluation: PACU Patient participation: complete - patient participated Level of consciousness: sleepy but conscious Pain management: satisfactory to patient Multimodal analgesia pain management approach Airway patency: patent Two or more strategies used to mitigate risk of obstructive sleep apnea Cardiovascular status: acceptable and hemodynamically stable Respiratory status: acceptable Hydration status: acceptable No notable events documented. MIPS #430 PONV Patient did not receive an inhalational anesthetic (XX430) MIPS # 424 Perioperative Temperature Management Anesthesia time was less than 60 minutes (4256F) MIPS #477 Multimodal Pain Management Not emergent case Patient was not administered multimodal pain management (G2149) Patient reports no pain in PACU (G2149) MIPS #404 Anesthesiology Smoking Abstinence The patient is not a current smoker (e.g. cigarette, cigar, pipe, e-cigarette/vaping/marijuana) If no stop here (XX404) I completed my handoff to the receiving clinician during which we: 1. Identified the patient 2. Identified the responsible provider 3. Reviewed the pertinent medical history 4. Discussed the surgical course 5. Reviewed intra-op anesthesia management and issues during anesthesia 6. Set expectations for post-procedure period 7. Allowed opportunity for questions and acknowledgement of understanding.[facility]12-13-2024 Note* Perioperative Nursing Note - Yoli Sr RN - 10/20/2024 12:12 PM EST Pt received from OR via cart, spont. Resp. With CLINICAL TRIAL EDUCATOR in attendance. Placed on monitor. Monitor alarms on in PACU , pt has oral airway will continue monitor [id number] Note* Perioperative Nursing Note - Yoli Sr RN - 10/20/2024 12:12 PM EST Pt received from OR via cart, spont. Resp. With CLINICAL TRIAL EDUCATOR in attendance. Placed on monitor. Monitor alarms on in PACU , pt has oral airway will continue monitor [facility] [id number] NoteAirway Date/Time: 10/20/2024 11:48 AM Urgency: scheduled Airway not difficult General Information and Staff Patient location during procedure: Procedural Resident/CLINICAL TRIAL EDUCATOR: Tayler Thomson APRN - CLINICAL TRIAL EDUCATOR Performed: CLINICAL TRIAL EDUCATOR Indications and Patient Condition Indications for airway management: anesthesia Sedation level: Asleep Preoxygenated: yes Patient position: sniffing Mask difficulty assessment: 0 - not attempted Final Airway Details Final airway type: supraglottic airway Successful airway: Igel Size 4 Number of attempts at approach: [address] [place], [place] [id number] Note* Op Note - Edinson Alanis MD - 10/20/2024 11:43 AM EST [facility] MAIN OR [address] [facility] [address] Dept: [phone] Loc: [phone] Operative Report Patient Name: Roberto De La Cruz Date of : 1960 Date of Surgery: 10/20/24 Preoperative Diagnosis: LEFT carpal tunnel syndrome, LEFT wrist pain Postoperative Diagnosis: Same Procedure: Endoscopic LEFT carpal tunnel release with LEFT wrist injection Surgeon: Edinson Alanis MD 1st Assist: Hammad Edwards MD 2nd Assist: Jhon Garcia PA-C Implants: None Specimens Removed: None Anesthesia: MAC Local Anesthesia: 1% lidocaine with epinephrine (1:100,000) for a total of 10ml into the subcutaneous tissues of the operative site(s) Tourniquet: Brachium Estimated Blood Loss: <5ml Pre Operative Antibiotics: Yes Indications: Mr. Roberto De La Cruz is a 63 y.o. year-old male with LEFT carpal tunnel syndrome who failed conservative management and elected to proceed with surgical intervention. I have discussed withhim, preoperatively, the complications, limitations, expectations, alternatives, and risks of surgical intervention to include but not be limited to neurovascular injury and incomplete nerve recoverywhich he has demonstrated understanding. No guarantees were given or implied. After having all of his questions answered to his satisfaction, Mr. Roberto De La Cruz has provided written informed consent to proceed. Please see previous notes for full operative risk discussion. Procedure: Roberto De La Cruz was identified in the preoperative waiting area. His operative site was initialed and consent was reviewed. Final questions were answered. He was brought to the operating room and placed in the supine position. All bony prominences were well padded. The operative extremitywas prepped and draped in the usual sterile fashion. A surgical timeout was then performed with thepatient's identification, the procedure to be performed being reviewed, verification that the patient had received preoperative antibiotics if indicated, and verification of the correct surgical site. 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 Fire risk was asse ssed. Local was infiltrated into the soft tissues of the volar forearm and mid palm. An esmarch bandage was used to exsanguinate the limb and the tourniquet was inflated to 250mm Hg. A 1 cm transverse incision was made approximately 1 cm proximal to the distal volar wrist crease and just ulnar to the midline. Sharp dissection was carried down through the skin only and then blunt dissection was carried down to the level of the volar forearm fascia. A transverse incision was madethrough the fascia to acces the carpal canal. A dilator was placed within the carpal canal extending in line with the hook of the hamate. The camera was then introduced and the distal extent of the transverse carpal ligament was easily identified. The blade was deployed at this location and retracted about 1 cm. The camera was then advanced to ensure that all transverse fibers were adequately decompressed. The same stepwise sequence was performed to release the remaining fibers of the transverse carpal ligament from distal to proximal. At no time during the procedure did I visualize any neurovascular structures or tendons. The blade was retracted to the level of the skin to ensure that the entire transverse ligament as well as the most distal volar forearm fascia had been adequately decomp ressed. A synovial elevator was used to palpate the the carpal canal to ensure a thorough decompression had been achieved. The dermal layer was closed with a running non absorbable suture followed bysteri strips. The remaining local was placed in the subcutaneous tissues of the mid palm for post operative pain control and additional hemostasis. The wound was dressed gauze, cast padding, and a loosely applied AJ bandage. The tourniquet was let down and the hand pinked up nicely with a brisk capillary refill in all 5 digits. Procedure Note: Wrist Cortisone Injection The LEFT wrist was identified as the injection site. I discussed the risks/benefits of a corticosteroid injection to include but not be limited to infection, subcutaneous fat atrophy, elevated blood glucose, local redness and pain. After discussion of the risk/benefits the patient elected to proceed. Under sterile conditions, the ulnocarpal joint was injected with a mixture of 1 mL of 1% Lidocaine and 1 mL of Celestone (6mg/mL). A sterile bandage was applied. Roberto tolerated the procedure well without complication. I advised Roberto of the expected response, possible reactions and the instructions for care of hiswrist. Mr. Roberto De La Cruz was awakened from anesthesia having tolerated the procedure without apparent complication and was taken to the recovery room in stable condition. POST OPERATIVE PLAN PWB <5lbs until suture removal Nerve gliding, soft tissue massage, gradual strengthening at 2 wks Outpatient Follow-up XRays: No Edinson Alanis MD 10/20/2024 , 5:26 PM [facility] [employer] Phone: 1([phone] 347-678812-13-2024 Note* Op Note - Edinson Alanis MD - 10/20/2024 11:43 AM EST [facility] MAIN OR [address] [address] Dept: [phone] Loc: [phone] Operative Report Patient Name: Roberto De La Cruz Date of : 1960 Date of Surgery: 10/20/24 Preoperative Diagnosis: LEFT carpal tunnel syndrome, LEFT wrist pain Postoperative Diagnosis: Same Procedure: Endoscopic LEFT carpal tunnel release with LEFT wrist injection Surgeon: Edinson Alanis MD 1st Assist: Hammad Edwards MD 2nd Assist: Jhon Garcia PA-C Implants: None Specimens Removed: None Anesthesia: MAC Local Anesthesia: 1% lidocaine with epinephrine (1:100,000) for a total of 10ml into the subcutaneous tissues of the operative site(s) Tourniquet: Brachium Estimated Blood Loss: <5ml Pre Operative Antibiotics: Yes Indications: Mr. Roberto De La Cruz is a 63 y.o. year-old male with LEFT carpal tunnel syndrome who failed conservative management and elected to proceed with surgical intervention. I have discussed withhim, preoperatively, the complications, limitations, expectations, alternatives, and risks of surgical intervention to include but not be limited to neurovascular injury and incomplete nerve recoverywhich he has demonstrated understanding. No guarantees were given or implied. After having all of his questions answered to his satisfaction, Mr. Roberto De La Cruz has provided written informed consent to proceed. Please see previous notes for full operative risk discussion. Procedure: Roberto De La Cruz was identified in the preoperative waiting area. His operative site was initialed and consent was reviewed. Final questions were answered. He was brought to the operating room and placed in the supine position. All bony prominences were well padded. The operative extremitywas prepped and draped in the usual sterile fashion. A surgical timeout was then performed with thepatient's identification, the procedure to be performed being reviewed, verification that the patient had received preoperative antibiotics if indicated, and verification of the correct surgical site. 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 Fire risk was asse ssed. Local was infiltrated into the soft tissues of the volar forearm and mid palm. An esmarch bandage was used to exsanguinate the limb and the tourniquet was inflated to 250mm Hg. A 1 cm transverse incision was made approximately 1 cm proximal to the distal volar wrist crease and just ulnar to the midline. Sharp dissection was carried down through the skin only and then blunt dissection was carried down to the level of the volar forearm fascia. A transverse incision was madethrough the fascia to acces the carpal canal. A dilator was placed within the carpal canal extending in line with the hook of the hamate. The camera was then introduced and the distal extent of the transverse carpal ligament was easily identified. The blade was deployed at this location and retracted about 1 cm. The camera was then advanced to ensure that all transverse fibers were adequately decompressed. The same stepwise sequence was performed to release the remaining fibers of the transverse carpal ligament from distal to proximal. At no time during the procedure did I visualize any neurovascular structures or tendons. The blade was retracted to the level of the skin to ensure that the entire transverse ligament as well as the most distal volar forearm fascia had been adequately decomp ressed. A synovial elevator was used to palpate the the carpal canal to ensure a thorough decompression had been achieved. The dermal layer was closed with a running non absorbable suture followed bysteri strips. The remaining local was placed in the subcutaneous tissues of the mid palm for post operative pain control and additional hemostasis. The wound was dressed gauze, cast padding, and a loosely applied AJ bandage. The tourniquet was let down and the hand pinked up nicely with a brisk capillary refill in all 5 digits. Procedure Note: Wrist Cortisone Injection The LEFT wrist was identified as the injection site. I discussed the risks/benefits of a corticosteroid injection to include but not be limited to infection, subcutaneous fat atrophy, elevated blood glucose, local redness and pain. After discussion of the risk/benefits the patient elected to proceed. Under sterile conditions, the ulnocarpal joint was injected with a mixture of 1 mL of 1% Lidocaine and 1 mL of Celestone (6mg/mL). A sterile bandage was applied. Roberto tolerated the procedure well without complication. I advised Roberto of the expected response, possible reactions and the instructions for care of hiswrist. Mr. Roberto De La Cruz was awakened from anesthesia having tolerated the procedure without apparent complication and was taken to the recovery room in stable condition. POST OPERATIVE PLAN PWB <5lbs until suture removal Nerve gliding, soft tissue massage, gradual strengthening at 2 wks Outpatient Follow-up XRays: No Edinson Alanis MD 10/20/2024 , 5:26 PM [employer] Phone: [phone] 898-792912-13-2024 Telephone encounter Note* Telephone Encounter - Nikki Mccarthy - 10/20/2024 11:30 AM EST Prescription Refill Information The patient has been identified by name and date of : Yes Caregiver verified no other encounters exist for this prescription request: Yes Caregiver confirmed with patient/requestor that no other refills are due, in the near future, with this provider at this time: Yes The last office visit in the department: 12-27-23 Does the patient have a future office visit with this provider/department: No Requested Prescriptions Pending Prescriptions Disp Refills sertraline (ZOLOFT) 50 mg tablet 30 tablet 1 Sig: Take 1 tablet by mouth once daily. Nikki Thornton October 20, 2024 11:31 AM [facility]12-13-2024 Miscellaneous Notes* Telephone Encounter - Nikki Mccarthy - 10/20/2024 11:30 AM EST Prescription Refill Information The patient has been identified by name and date of : Yes Caregiver verified no other encounters exist for this prescription request: Yes Caregiver confirmed with patient/requestor that no other refills are due, in the near future, with this provider at this time: Yes The last office visit in the department: 12-27-23 Does the patient have a future office visit with this provider/department: No Requested Prescriptions Pending Prescriptions Disp Refills sertraline (ZOLOFT) 50 mg tablet 30 tablet 1 Sig: Take 1 tablet by mouth once daily. Nikki Thornton October 20, 2024 11:31 AM [facility] Discharge instructions* Discharge Instructions* Rafa Rodriguez PA-C - 10/20/2024 9:45 AM EST Images from the original note were not included. Endoscopic Carpal Tunnel Release: What to Expect at Home Your Recovery Your hand will hurt and may feel weak with varying numbness. This usually goes away in a few days, but it may take several months. You received a local injection in your operative hand with lidocaine and epinephrine today. It is normal for your finger tip(s) to look pale or white for up to 10 hours after surgery but if this persists past the 10 hours please call the office immediately at [phone]. Your stitches will be removed in 1 to 2 weeks. Your hand and wrist may feel worse than they had felt. But the pain should begin to go away. It usually takes 3 to 4 months to recover and up to 1 year before hand strength returns completely. The timing of your return to work depends whether the surgery was on your dominant hand (the hand you use most) and your work activities. If you had surgery on your dominant hand and you do repeated actions at work, you may be able to return to work in 4 to 6 weeks. Repeated motions include typing or assembly-line work. If the surgery was on the other hand and you do not do repeated actions at work, you may be able to return to work in 7 to 14 days. Please discuss this at your initial post operative appointment. This care sheet gives you a general idea of how long it will take for you to recover. But each person recovers at a different pace. Follow the steps below to get better as quickly as possible. How can you care for yourself at home? Activity Rest when you feel tired. Getting enough sleep will help you recover. Try to walk each day. Start by walking a little more than you did the day before. Bit by bit, increase the amount you walk. Until your stitches are removed, you are to remain non-weightbearing in the operative extremity. For up to 2 weeks after surgery, avoid lifting things heavier than 1 to 2 pounds and using your hand. This includes doing repeated arm or hand movements, such as typing or using a computer mouse, washing windows, vacuuming, or chopping food. Do not use power tools, and avoid activities that cause vibration. You may begin heavier tasks about 4 weeks after surgery. These include vacuuming, mowing the lawn, and gardening. You may shower, but do not get your hand wet. Keep the bandage dry by covering it with plastic. Do not take a bath, swim, use a hot tub, or soak your hand until the incision is healed and cleared by the surgeon's office. You may drive when you are fully able to use your hand. Diet You can eat your normal diet. If your stomach is upset, try bland, low-fat foods like plain rice, broiled chicken, toast, and yogurt. Medicines Your can restart your normal medicines immediately after surgery. Instructions will be provided if you are to be taking any new medicines. Take pain medicines exactly as directed. If you are not taking a prescription pain medicine, take an vcwx-ekl-lgqzalr medicine such as acetaminophen (Tylenol), ibuprofen (Advil, Motrin), or naproxen (Aleve). Read and follow all instructionson the label. Do not take two or more pain medicines at the same time unless told to do so. Many pain medicines have acetaminophen, which is Tylenol. Too much acetaminophen (Tylenol) can be harmful. If you think your pain medicine is making you sick to your stomach: Take your medicine after meals. Ask for a different pain medicine. If your doctor prescribed antibiotics, take them as directed. Do not stop taking them just because you feel better. You need to take the full course of antibiotics. Incision care Keep your operative bandage on, clean, and dry for one week. After one week from the date of surgery, you can remove only the AJ wrap, rolled dressing, and guaze. Please leave the Steri-Strips/whitetape intact at the wrist until your follow-up appointment. The tapes are present along the edges ofthe wrist incision holding the blue suture in place. Please place a large Band- aid or soft guaze dressing over the incision to keep the area clean and dry. This is to be changed daily. It is okay to shower and get the incision wet after removing the dressing at one week from surgery but do not soak. Pat dry thoroughly before applying new bandage. Exercise Perform range of motion exercises of index finger, long finger, ring finger, little finger, thumb, and wrist in dressing with goal of touching fingertips to palm by initial post op appointment. Please see instructions below. You may need wrist and hand rehabilitation. This is a series of exercises you do after your surgery. 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 To get the best results, you need to do the exercises correctly and as often as possible. Ice and elevation Put ice or a cold pack on your wrist for 10 to 20 minutes at a time. Try to do this every 1 to 2 hours for the next 3 days (when you are awake) or until the swelling goes down. Put a thin cloth between the ice and your skin. Prop up the sore wrist on a pillow when you ice it or anytime you sit or lie down during the next 3days. Try to keep it above the level of your heart. This will help reduce swelling. Other instructions Avoid letting your hand hang down. This can cause swelling. Follow-up care is a hurt part of your treatment and safety. Be sure to make and go to all appointments, and call your doctor if you are having problems. It's also a good idea to know your test resultsand keep a list of the medicines you take. When should you call for help? Call 911 anytime you think you may need emergency care. For example, call if: You passed out (lost consciousness). You have chest pain, are short of breath, or cough up blood. Call your doctor now or seek immediate medical care if: You have pain that does not get better after you take pain medicine. Your hand is cool or pale or changes color. Your cast or splint feels too tight. You have worsening tingling, weakness, or numbness in your hand or fingers. You are sick to your stomach or cannot drink fluids. You have loose stitches, or your incision comes open. You have signs of a blood clot in your leg (called a deep vein thrombosis), such as: Pain in your calf, back of the knee, thigh, or groin. Redness or swelling in your leg. You have signs of infection, such as: Increased pain, swelling, warmth, or redness. Red streaks leading from the incision. Pus draining from the incision. A fever. Bright red blood has soaked through the bandage over your incision. Watch closely for any changes in your health, and be sure to contact your doctor if: You have a problem with your bandage. You do not get better as expected. Carpal Tunnel Syndrome: Exercises Your Care Instructions Here are some examples of typical rehabilitation exercises for your condition. Start each exercise slowly. Ease off the exercise if you start to have pain. Your doctor or your physical or occupational therapist will tell you when you can start these exercises and which ones will work best for you. Warm-up stretches When you no longer have pain or numbness, you can do exercises to help prevent carpal tunnel syndrome from coming back. Do not do any stretch or movement that is uncomfortable or painful. Rotate your wrist up, down, and from side to side. Repeat 4 times. Stretch your fingers far apart. Relax them, and then stretch them again. Repeat 4 times. Stretch your thumb by pulling it back gently, holding it, and then releasing it. Repeat 4 times. How to do the exercises Prayer stretch Start with your palms together in front of your chest just below your chin. Slowly lower your hands toward your waistline, keeping your hands close to your stomach and your palms together until you feel a mild to moderate stretch under your forearms. Hold for at least 15 to 30 seconds. Repeat 2 to 4 times. Wrist flexor stretch Extend your arm in front of you with your palm up. Bend your wrist, pointing your hand toward the floor. With your other hand, gently bend your wrist farther until you feel a mild to moderate stretch in your forearm. Hold for at least 15 to 30 seconds. Repeat 2 to 4 times. Wrist extensor stretch Repeat steps 1 through 4 of the stretch above, but begin with your extended hand palm down. * Attachments The following attachments cannot be sent through Care Everywhere. * Moderate Sedation in Adults Discharge Instructions ([place]) [facility] History and physical note* Rafa Rodriguez PA-C - 10/20/2024 9:43 AM EST [facility] Pre-Surgical History and Physical Name: Roberto De La Cruz : 1960 (Age-63 y.o.) Date of Service: Pt seen/examined on 10/20/2024 Chief Complaint: 63 y.o. male who we are asked to see/evaluate Roberto De La Cruz for pre-procedure evaluation prior to Procedure Information Date/Time: 10/20/24 1115 Procedures: ENDOSCOPIC LEFT CARPAL TUNNEL RELEASE, LEFT ULNOCARPAL JOINT INJECTION (Left: Wrist) - 30 MINUTES TOTAL ARTHROCENTESIS ASPIRATION AND/OR INJECTION INTERMEDIATE JOINT OR BURSA (Left) Location: [address] Operating Room Surgeons: Edinson Alanis MD History Of Present Illness: HPI: Pt here for ENDOSCOPIC LEFT CARPAL TUNNEL RELEASE, LEFT ULNOCARPAL JOINT INJECTION BP 138/86 Pulse 56 Temp (!) 35.6 C (96 F) (Temporal) Resp 20 Ht 6' 2 (1.88 m) Wt 248 lb (112 kg) SpO2 95% BMI 31.84 kg/m Past Medical History: Diagnosis Date Anxiety Colon polyps Depression History of atrial fibrillation Lipid disorder Patient Active Problem List Diagnosis Date Noted Carpal tunnel syndrome of left wrist 09/04/2024 DRUJ (distal radioulnar joint) post-traumatic arthritis, left 09/04/2024 DRUJ (distal radioulnar joint) post-traumatic arthritis, right 09/04/2024 Carpal tunnel syndrome on right 09/04/2024 Past Surgical History: Procedure Laterality Date CARDIOVERSION 2019 CHOLECYSTECTOMY IMGHX XR ENDO COLONSCOPY W DILATATION 2017 Family History Problem Relation Name Age of Onset Alzheimer's disease Mother Cancer Father Alzheimer's disease Sister COPD Brother Medications: Prior to Admission medications Not on File Social history and Laboratory Data: Social History Tobacco Use Smoking Status Never Smokeless Tobacco Never Social History Substance and Sexual Activity Alcohol Use Yes Comment: rarely Social History Substance and Sexual Activity Drug Use Never No results found for: WBC, HGB, HCT, MCV, PLT No results found for: NA, K, CL, CO2, BUN, CREATININE, GLUCOSE, CALCIUM, PROT, BILITOT, ALKPHOS, AST, ALT, LABGLOM, AGRATIO, GLOB Review of systems negative except for what is noted in HPI and medical history. See Anesthesia Pre-op on the Day of Surgery for the completed Physical Exam. ASSESSMENT/PLAN: 1) ENDOSCOPIC LEFT CARPAL TUNNEL RELEASE, LEFT ULNOCARPAL JOINT INJECTION Electronically signed by: Rafa Rodriguez PA-C, Date: 10/20/2024 at 9:44 AM Cosigned by Edinson Alanis MD at 10/20/2024 4:37 PM EST [facility] History and Physical Name: Roberto De La Cruz : 1960 (Age-63 y.o.) Date of Service: Pt seen/examined on 10/20/2024 Chief Complaint: 63 y.o. male who we are asked to see/evaluate Roberto De La Cruz for pre-procedure evaluation prior to Procedure Information Date/Time: 10/20/24 1115 Procedures: ENDOSCOPIC LEFT CARPAL TUNNEL RELEASE, LEFT ULNOCARPAL JOINT INJECTION (Left: Wrist) - 30 MINUTES TOTAL ARTHROCENTESIS ASPIRATION AND/OR INJECTION INTERMEDIATE JOINT OR BURSA (Left) Location: [address] Operating Room Surgeons: Edinson Alanis MD History Of Present Illness: HPI: Pt here for ENDOSCOPIC LEFT CARPAL TUNNEL RELEASE, LEFT ULNOCARPAL JOINT INJECTION BP 138/86 Pulse 56 Temp (!) 35.6 ?C (96 ?F) (Temporal) Resp 20 Ht 6' 2 (1.88 m) Wt 248 lb (112 kg) SpO2 95% BMI 31.84 kg/m? Past Medical History: Diagnosis Date Anxiety Colon polyps Depression History of atrial fibrillation Lipid disorder Patient Active Problem List Diagnosis Date Noted Carpal tunnel syndrome of left wrist 09/04/2024 DRUJ (distal radioulnar joint) post-traumatic arthritis, left 09/04/2024 DRUJ (distal radioulnar joint) post-traumatic arthritis, right 09/04/2024 Carpal tunnel syndrome on right 09/04/2024 Past Surgical History: Procedure Laterality Date CARDIOVERSION 2019 CHOLECYSTECTOMY IMGHX XR ENDO COLONSCOPY W DILATATION 2017 Family History Problem Relation Name Age of Onset Alzheimer's disease Mother Cancer Father Alzheimer's disease Sister COPD Brother Medications: Prior to Admission medications Not on File Social history and Laboratory Data: Social History Tobacco Use Smoking Status Never Smokeless Tobacco Never Social History Substance and Sexual Activity Alcohol Use Yes Comment: rarely Social History Substance and Sexual Activity Drug Use Never No results found for: WBC, HGB, HCT, MCV, PLT No results found for: NA, K, CL, CO2, BUN, CREATININE, GLUCOSE, CALCIUM, PROT, BILITOT, ALKPHOS, AST, ALT, LABGLOM, AGRATIO, GLOB Review of systems negative except for what is noted in HPI and medical history. See Anesthesia Pre-op on the Day of Surgery for the completed Physical Exam. ASSESSMENT/PLAN: 1) ENDOSCOPIC LEFT CARPAL TUNNEL RELEASE, LEFT ULNOCARPAL JOINT INJECTION Electronically signed by: Rafa Rodriguez PA-C, Date: 10/20/2024 at 9:44 [facility]12-13-2024 History and physical note* Rafa Rodriguez PA-C - 10/20/2024 9:43 AM EST [facility] [employer] Pre-Surgical History and Physical Name: Roberto De La Cruz : 1960 (Age-63 y.o.) Date of Service: Pt seen/examined on 10/20/2024 Chief Complaint: 63 y.o. male who we are asked to see/evaluate Roberto De La Cruz for pre-procedure evaluation prior to Procedure Information Date/Time: 10/20/24 1115 Procedures: ENDOSCOPIC LEFT CARPAL TUNNEL RELEASE, LEFT ULNOCARPAL JOINT INJECTION (Left: Wrist) - 30 MINUTES TOTAL ARTHROCENTESIS ASPIRATION AND/OR INJECTION INTERMEDIATE JOINT OR BURSA (Left) Location: [address] Operating Room Surgeons: Edinson Alanis MD History Of Present Illness: HPI: Pt here for ENDOSCOPIC LEFT CARPAL TUNNEL RELEASE, LEFT ULNOCARPAL JOINT INJECTION BP 138/86 Pulse 56 Temp (!) 35.6 C (96 F) (Temporal) Resp 20 Ht 6' 2 (1.88 m) Wt 248 lb (112 kg) SpO2 95% BMI 31.84 kg/m Past Medical History: Diagnosis Date Anxiety Colon polyps Depression History of atrial fibrillation Lipid disorder Patient Active Problem List Diagnosis Date Noted Carpal tunnel syndrome of left wrist 09/04/2024 DRUJ (distal radioulnar joint) post-traumatic arthritis, left 09/04/2024 DRUJ (distal radioulnar joint) post-traumatic arthritis, right 09/04/2024 Carpal tunnel syndrome on right 09/04/2024 Past Surgical History: Procedure Laterality Date CARDIOVERSION 2019 CHOLECYSTECTOMY IMGHX XR ENDO COLONSCOPY W DILATATION 2016 Family History Problem Relation Name Age of Onset Alzheimer's disease Mother Cancer Father Alzheimer's disease Sister COPD Brother Medications: Prior to Admission medications Not on File Social history and Laboratory Data: Social History Tobacco Use Smoking Status Never Smokeless Tobacco Never Social History Substance and Sexual Activity Alcohol Use Yes Comment: rarely Social History Substance and Sexual Activity Drug Use Never No results found for: WBC, HGB, HCT, MCV, PLT No results found for: NA, K, CL, CO2, BUN, CREATININE, GLUCOSE, CALCIUM, PROT, BILITOT, ALKPHOS, AST, ALT, LABGLOM, AGRATIO, GLOB Review of systems negative except for what is noted in HPI and medical history. See Anesthesia Pre-op on the Day of Surgery for the completed Physical Exam. ASSESSMENT/PLAN: 1) ENDOSCOPIC LEFT CARPAL TUNNEL RELEASE, LEFT ULNOCARPAL JOINT INJECTION Electronically signed by: Rafa Rodriguez PA-C, Date: 10/20/2024 at 9:44 AM Cosigned by Edinson Alanis MD at 10/20/2024 4:37 PM EST * Joao Villanueva, MANAGER DRUG SAFETY - CLINICAL TRIAL EDUCATOR - 10/20/2024 9:42 AM EST Telemedicine: Patient was seen today via Telehealth by agreement and consent. I used the following Telehealth technology: Audio & Video Visit This patient encounter is appropriate and reasonable under the circumstances given the patient's particular presentation at this time with the plan to undergo a surgical procedure located at an outpatient surgical center. The patient has been advised of the potential risks and limitations of this mode of treatment (including but not limited to the absence of in-person examination) and has agreed to be treated in a remote fashion in spite of them. Any and all of the patient's/patient's family's questions on this issue have been answered and I have made no promises or guarantees to the patient. The patient has also b een advised to contact their PCP or surgeon's office for worsening conditions or problems, and seekemergency medical treatment and/or call 911 if the patient deems either necessary. The patient stated that they are currently in the [facility]. If the patient is a minor, permission has been obtained by the parent or guardian for the patient to receive medical care at this visit. The patient verbally consented to the visit held via telephone/video call. The patient understands the limitations of not being physically examined and that we may not be able to address all issues via a telehealth visit. Pre-Surgical History Name: Roberto De La Cruz : 1960 (Age-63 y.o.) Date of Service: Pt seen/examined on 10/20/2024 Chief Complaint: Pre-surgical evaluation, wrist pain History Of Present Illness: We are asked to see/evaluate Roberto De La Cruz, a 63 y.o. male for pre-operative evaluation prior to Procedure Information Date/Time: 10/20/24 1430 Procedures: ENDOSCOPIC LEFT CARPAL TUNNEL RELEASE, LEFT ULNOCARPAL JOINT INJECTION (Left: Wrist) - 30 MINUTES TOTAL ARTHROCENTESIS ASPIRATION AND/OR INJECTION INTERMEDIATE JOINT OR BURSA (Left) Location: [address] Operating Room Surgeons: Edinson Alanis MD Roberto De La Cruz presents with c/o progressively worsening bilateral wrist pain x several years (L>R). Endorses numbness/tingling and nighttime awakenings. Symptoms worsen with cold. Currently ratespain as 02/15. Conservative measures have provided little relief. Proceeding with the above. Anesthesia Assessment BMI Classification: Obese (BMI 30.0-39.9) Allergies: Iodinated contrast media If patient has opioid allergy, is it okay to take Acetaminophen: N/A Any Problems with Anesthesia?: Past General Anesthetic without complications History of Difficult Intubation?: None reported History of Blood Transfusion Postoperatively?: None reported Family History of Problems with Anesthesia?: None noted Overall Dentition: missing throughout , Dentures: None Partials: None Mallampati PAT assesment: 3 Mouth Size: WNL TMD: >4cm Neck: WNL GERD:None Implantable Devices:None PAT Pain Score:4 METs (>4 METS implies low cardiovascular risk from surgery): Reports >4 METs- Able to climb a flight of stairs without chest pain Cardiac Stents:No History of CVA:No History of Seizures:No COPD/Asthma:No YULIA: N/A Anticoagulant/Antiplatelet Therapy: No Chronic Steroid Use:No Chronic Narcotic Use: No Social History: ETOH: reports current alcohol use. Social History Substance and Sexual Activity Drug Use Never TOBACCO: reports that he has never smoked. He has never used smokeless tobacco. ASA Score: 2 Cardiac EKG: No results found for this or any previous visit. 12/16/22 NORMAL SINUS RHYTHM NORMAL ECG Confirmed by DIPESH SOMERS, VIRGEN W (34) on 12/24/2022 12:52:21 PM ECHO and EF: No results found for this or any previous visit. ASSESSMENT/PLAN: Based on the above evaluation, the benefits of the planned procedure likely exceed the risks. The patient is medically optimized to proceed with no reducible risk factor and without any further cardiopulmonary testing. 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], Carpal tunnel syndrome, right upper limb [G56.01] - Deferred to surgeon - Pre-surgical instructions given to patient - No further workup required per PAT Protocol Labs Ordered: No EKG Ordered: No Sleep Referral Ordered: NO - NEGATIVE SCREEN PER SLEEP REFERRAL PROTOCOL #) Pre-operative Anesthesia Evaluation - Anesthesia Assessment complete, noted above - Surgery Site: [facility] - Anesthesia Type: TIVA #) Paroxysmal atrial fibrillation - managed by PCP (previously managed by [facility]) - s/p cardioversion 01/03/2020 - SR noted on 2022 EKG - stable, asymptomatic, no medications #) Lipid disorder - controlled with lifestyle modifications #) Mood disorder - managed by PCP - mood stable, not currently on medications #) History of colonic polyps - followed by PCP - noted on 2016 colonoscopy, Bx + tubular adenoma - surveillance REVIEW OF SYSTEMS: Review of Systems Constitutional: Negative for chills and fever. HENT: Negative for trouble swallowing. Eyes: Negative for visual disturbance. Respiratory: Negative for chest tightness and shortness of breath. Cardiovascular: Negative for chest pain, palpitations and leg swelling. Gastrointestinal: Negative for abdominal pain, nausea and vomiting. Genitourinary: Negative for difficulty urinating and hematuria. Musculoskeletal: Positive for myalgias. Negative for back pain and gait problem. Skin: Negative for color change. Neurological: Negative for dizziness, seizures, syncope, speech difficulty and light-headedness. Psychiatric/Behavioral: Negative for agitation and confusion. Labs: No results found for: WBC, HGB, HCT, MCV, PLT No results found for: NA, K, CL, CO2, BUN, CREATININE, GLUCOSE, CALCIUM, PROT, BILITOT, ALKPHOS, AST, ALT, LABGLOM, AGRATIO, GLOB Past Medical History: Past Medical History: No date: Anxiety No date: Colon polyps No date: Depression No date: History of atrial fibrillation No date: Lipid disorder Past Surgical History: Past Surgical History: Procedure Laterality Date CARDIOVERSION 2019 CHOLECYSTECTOMY IMGHX XR ENDO COLONSCOPY W DILATATION 2017 Medications Prior to Admission: Prior to Admission medications Not on File Family History: Family History Problem Relation Name Age of Onset Alzheimer's disease Mother Cancer Father Alzheimer's disease Sister COPD Brother Electronically signed by: GORDO Yoder CRNA Date: 10/20/2024 at 9:42 AM Physical Exam Pre-Surgical Physical Vitals: Vitals Value Taken Time BP 138/86 10/20/24935 Temp 35.6 C (96 F) 10/20/24935 Pulse 56 10/20/24935 Resp 20 10/20/24935 SpO2 95 % 10/20/24935 Constitutional: No apparent distress, well nourished, and in stable condition. Cardiac: Regular rate and rhythm Abdomen: Soft and nonacute Pulmonary: Clear bilaterally and no wheezing Neuro: Moves extremities X4 with no tremors HEENT: No gross cranial nerve defects and anicteric sclera Skin: Skin warm and dry with no visible rashes Vascular: Adequate perfusion of extremities with no cyanosis Psych: Alert and oriented x3 with appropriate affect Lymphatics: No swelling of arms/hands with no pedal edema Neck: FROM with no JVD [facility] History and physical note* GORDO Yoder CRNA - 10/20/2024 9:42 AM EST Telemedicine: Patient was seen today via Telehealth by agreement and consent. I used the following Telehealth technology: Audio & Video Visit This patient encounter is appropriate and reasonable under the circumstances given the patient's particular presentation at this time with the plan to undergo a surgical procedure located at an outpatient surgical center. The patient has been advised of the potential risks and limitations of this mode of treatment (including but not limited to the absence of in-person examination) and has agreed to be treated in a remote fashion in spite of them. Any and all of the patient's/patient's family's questions on this issue have been answered and I have made no promises or guarantees to the patient. The patient has also been advised to contact their PCP or surgeon's office for worsening conditions or problems, and seekemergency medical treatment and/or call 911 if the patient deems either necessary. The patient stated that they are currently in the state of [place]. If the patient is a minor, permission has been obtained by the parent or guardian for the patient to receive medical care at this visit. The patient verbally consented to the visit held via telephone/video call. The patient understands the limitations of not being physically examined and that we may not be able to address all issues via a telehealth visit. Pre-Surgical History Name: Roberto De La Cruz : 1960 (Age-63 y.o.) Date of Service: Pt seen/examined on 10/20/2024 Chief Complaint: Pre-surgical evaluation, wrist pain History Of Present Illness: We are asked to see/evaluate Roberto De La Cruz, a 63 y.o. male for pre-operative evaluation prior to Procedure Information Date/Time: 10/20/24 1430 Procedures: ENDOSCOPIC LEFT CARPAL TUNNEL RELEASE, LEFT ULNOCARPAL JOINT INJECTION (Left: Wrist) - 30 MINUTES TOTAL ARTHROCENTESIS ASPIRATION AND/OR INJECTION INTERMEDIATE JOINT OR BURSA (Left) Location: [address] Operating Room Surgeons: Edinson Alanis MD Roberto De La Cruz presents with c/o progressively worsening bilateral wrist pain x several years (L>R). Endorses numbness/tingling and nighttime awakenings. Symptoms worsen with cold. Currently ratespain as 4/10. Conservative measures have provided little relief. Proceeding with the above. Anesthesia Assessment BMI Classification: Obese (BMI 30.0-39.9) Allergies: Iodinated contrast media If patient has opioid allergy, is it okay to take Acetaminophen: N/A Any Problems with Anesthesia?: Past General Anesthetic without complications History of Difficult Intubation?: None reported History of Blood Transfusion Postoperatively?: None reported Family History of Problems with Anesthesia?: None noted Overall Dentition: missing throughout , Dentures: None Partials: None Mallampati PAT assesment: 3 Mouth Size: WNL TMD: >4cm Neck: WNL GERD:None Implantable Devices:None PAT Pain Score:4 METs (>4 METS implies low cardiovascular risk from surgery): Reports >4 METs- Able to climb a flight of stairs without chest pain Cardiac Stents:No History of CVA:No History of Seizures:No COPD/Asthma:No YULIA: N/A Anticoagulant/Antiplatelet Therapy: No Chronic Steroid Use:No Chronic Narcotic Use: No Social History: ETOH: reports current alcohol use. Social History Substance and Sexual Activity Drug Use Never TOBACCO: reports that he has never smoked. He has never used smokeless tobacco. ASA Score: 2 Cardiac EKG: No results found for this or any previous visit. 12/16/22 NORMAL SINUS RHYTHM NORMAL ECG Confirmed by DIPESH SOMERS, VIRGEN W (34) on 12/24/2022 12:52:21 PM ECHO and EF: No results found for this or any previous visit. ASSESSMENT/PLAN: Based on the above evaluation, the benefits of the planned procedure likely exceed the risks. The patient is medically optimized to proceed with no reducible risk factor and without any further cardiopulmonary testing. 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], Carpal tunnel syndrome, right upper limb [G56.01] - Deferred to surgeon - Pre-surgical instructions given to patient - No further workup required per PAT Protocol Labs Ordered: No EKG Ordered: No Sleep Referral Ordered: NO - NEGATIVE SCREEN PER SLEEP REFERRAL PROTOCOL #) Pre-operative Anesthesia Evaluation - Anesthesia Assessment complete, noted above - Surgery Site: [facility] - Anesthesia Type: TIVA #) Paroxysmal atrial fibrillation - managed by PCP (previously managed by [facility]) - s/p cardioversion 01/03/2020 - SR noted on 2022 EKG - stable, asymptomatic, no medications #) Lipid disorder - controlled with lifestyle modifications #) Mood disorder - managed by PCP - mood stable, not currently on medications #) History of colonic polyps - followed by PCP - noted on 2016 colonoscopy, Bx + tubular adenoma - surveillance REVIEW OF SYSTEMS: Review of Systems Constitutional: Negative for chills and fever. HENT: Negative for trouble swallowing. Eyes: Negative for visual disturbance. Respiratory: Negative for chest tightness and shortness of breath. Cardiovascular: Negative for chest pain, palpitations and leg swelling. Gastrointestinal: Negative for abdominal pain, nausea and vomiting. Genitourinary: Negative for difficulty urinating and hematuria. Musculoskeletal: Positive for myalgias. Negative for back pain and gait problem. Skin: Negative for color change. Neurological: Negative for dizziness, seizures, syncope, speech difficulty and light-headedness. Psychiatric/Behavioral: Negative for agitation and confusion. Labs: No results found for: WBC, HGB, HCT, MCV, PLT No results found for: NA, K, CL, CO2, BUN, CREATININE, GLUCOSE, CALCIUM, PROT, BILITOT, ALKPHOS, AST, ALT, LABGLOM, AGRATIO, GLOB Past Medical History: Past Medical History: No date: Anxiety No date: Colon polyps No date: Depression No date: History of atrial fibrillation No date: Lipid disorder Past Surgical History: Past Surgical History: Procedure Laterality Date CARDIOVERSION 2019 CHOLECYSTECTOMY IMGHX XR ENDO COLONSCOPY W DILATATION 2017 Medications Prior to Admission: Prior to Admission medications Not on File Family History: Family History Problem Relation Name Age of Onset Alzheimer's disease Mother Cancer Father Alzheimer's disease Sister COPD Brother Electronically signed by: GORDO Yoder CRNA Date: 10/20/2024 at 9:42 AM Physical Exam Pre-Surgical Physical Vitals: Vitals Value Taken Time BP 138/86 10/20/24 0936 Temp 35.6 C (96 F) 10/20/24 0936 Pulse 56 10/20/24 0936 Resp 20 10/20/24 0936 SpO2 95 % 10/20/24 0936 Constitutional: No apparent distress, well nourished, and in stable condition. Cardiac: Regular rate and rhythm Abdomen: Soft and nonacute Pulmonary: Clear bilaterally and no wheezing Neuro: Moves extremities X4 with no tremors HEENT: No gross cranial nerve defects and anicteric sclera Skin: Skin warm and dry with no visible rashes Vascular: Adequate perfusion of extremities with no cyanosis Psych: Alert and oriented x3 with appropriate affect Lymphatics: No swelling of arms/hands with no pedal edema Neck: FROM with no JVD [employer] Work Phone: [phone]) 964-601012-13-2024 NoteTelemedicine: Patient was seen today via Telehealth by agreement and consent. I used the following Telehealth technology: Audio & Video Visit This patient encounter is appropriate and reasonable under the circumstances given the patient's particular presentation at this time with the plan to undergo a surgical procedure located at an outpatient surgical center. The patient has been advised of the potential risks and limitations of this mode of treatment (including but not limited to the absence of in-person examination) and has agreed to be treated in a remote fashion in spite of them. Any and all of the patient's/patient's family's questions on this issue have been answered and I have made no promises or guarantees to the patient. The patient has also been advised to contact their PCP or surgeon's office for worsening conditions or problems, and seek emergency medical treatment and/or call 911 if the patient deems either necessary. The patient stated that they are currently in the [facility]. If the patient is a minor, permission has been obtained by the parent or guardian for the patient to receive medical care at this visit. The patient verbally consented to the visit held via telephone/video call. The patient understands the limitations of not being physically examined and that we may not be able to address all issues via a telehealth visit. Pre-Surgical History Name: Roberto De La Cruz : 1960 (Age-63 y.o.) Date of Service: Pt seen/examined on 10/20/2024 Chief Complaint: Pre-surgical evaluation, wrist pain History Of Present Illness: We are asked to see/evaluate Roberto De La Cruz, a 63 y.o. male for pre-operative evaluation prior to Procedure Information Date/Time: 10/20/24 1430 Procedures: ENDOSCOPIC LEFT CARPAL TUNNEL RELEASE, LEFT ULNOCARPAL JOINT INJECTION (Left: Wrist) - 30 MINUTES TOTAL ARTHROCENTESIS ASPIRATION AND/OR INJECTION INTERMEDIATE JOINT OR BURSA (Left) Location: [facility] [address] [place] [address] Operating Room Surgeons: Edinson Alanis MD Roberto De La Cruz presents with c/o progressively worsening bilateral wrist pain x several years (L>R). Endorses numbness/tingling and nighttime awakenings. Symptoms worsen with cold. Currently rates pain as 4/10. Conservative measures have provided little relief. Proceeding with the above. Anesthesia Assessment BMI Classification: Obese (BMI 30.0-39.9) Allergies: Iodinated contrast media If patient has opioid allergy, is it okay to take Acetaminophen: N/A Any Problems with Anesthesia?: Past General Anesthetic without complications History of Difficult Intubation?: None reported History of Blood Transfusion Postoperatively?: None reported Family History of Problems with Anesthesia?: None noted Overall Dentition: missing throughout , Dentures: None Partials: None Mallampati PAT assesment: 3 Mouth Size: WNL TMD: >4cm Neck: WNL GERD:None Implantable Devices:None PAT Pain Score:4 METs (>4 METS implies low cardiovascular risk from surgery): Reports >4 METs - Able to climb a flight of stairs without chest pain Cardiac Stents:No History of CVA:No History of Seizures:No COPD/Asthma:No YULIA: N/A Anticoagulant/Antiplatelet Therapy: No Chronic Steroid Use:No Chronic Narcotic Use: No Social History: ETOH: reports current alcohol use. Social History Substance and Sexual Activity Drug Use Never TOBACCO: reports that he has never smoked. He has never used smokeless tobacco. ASA Score: 2 Cardiac EKG: No results found for this or any previous visit. 12/16/22 NORMAL SINUS RHYTHM NORMAL ECG Confirmed by DIPESH SOMERS, VIRGEN [place] (34) on 12/24/2022 12:52:21 PM ECHO and EF: No results found for this or any previous visit. ASSESSMENT/PLAN: Based on the above evaluation, the benefits of the planned procedure likely exceed the risks. The patient is medically optimized to proceed with no reducible risk factor and without any further cardiopulmonary testing. 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], Carpal tunnel syndrome, right upper limb [G56.01] - Deferred to surgeon - Pre-surgical instructions given to patient - No further workup required per PAT Protocol Labs Ordered: No EKG Ordered: No Sleep Referral Ordered: NO - NEGATIVE SCREEN PER SLEEP REFERRAL PROTOCOL #) Pre-operative Anesthesia Evaluation - Anesthesia Assessment complete, noted above - Surgery Site: [facility] - Anesthesia Type: TIVA #) Paroxysmal atrial fibrillation - managed by PCP (previously managed by [facility]) - s/p cardioversion 01/03/2020 - SR noted on 2022 EKG - stable, asymptomatic, no medications #) Lipid disorder - controlled with lifestyle modifications #) Mood disorder - managed by PCP - mood stable, not currently on m (more content not included)...[facility]12-06-2024 Telephone encounter Note* Telephone Encounter - Jennifer Acosta - 10/13/2024 12:37 PM EST Luh states patients employer has not received the [facility] paperwork. She asked that it be faxed to [phone]. Fax complete. [id number] Miscellaneous Notes* Telephone Encounter - Jennifer Acosta - 10/13/2024 12:37 PM EST Luh states patients employer has not received the [facility] paperwork. She asked that it be faxed to [phone]. Fax complete. * Telephone Encounter - Vale Estrada ATC - 10/03/2024 12:56 PM EST Fax successfully and paperwork scanned into the chart I called and spoke with the patient directly. I told him I completed the paperwork and faxed it to the number provided today. He said thank you. * Telephone Encounter - Vale Estrada ATC - 10/03/2024 12:36 PM EST Paperwork completed and fax pending awaiting confirmation * Telephone Encounter - Lucille Carrero - 10/03/2024 10:40 AM EST Blank paperwork is scanned into patient's media, hard copies are in ' mailbox. * Telephone Encounter - Lucille Carrero - 10/03/2024 10:09 AM EST Saulo dropped off paperwork to the [place] office today. He is aware of the 7-10 business days for return on paperwork, as well as the $15 fee for paperwork. Patient would like paperwork faxed back to number listed for [employer] ([phone]) He would like notified when paperwork is completed, he will pay $15 fee over the phone at this time. Paperwork is in ' mailbox. [facility]12-[facility] NotePatient: Saulo De La Cruz Procedure Information Date/Time: 10/20/24 1430 Procedures: ENDOSCOPIC LEFT CARPAL TUNNEL RELEASE, LEFT ULNOCARPAL JOINT INJECTION (Left: Wrist) - 30 MINUTES TOTAL ARTHROCENTESIS ASPIRATION AND/OR INJECTION INTERMEDIATE JOINT OR BURSA (Left) Location: [address] Operating Room Surgeons: Edinson Alanis MD Relevant Problems No relevant active problems Past Medical History: Past Medical History: No date: Anxiety No date: Colon polyps No date: Depression No date: History of atrial fibrillation No date: Lipid disorder Past Surgical History: Past Surgical History: 2020: CARDIOVERSION No date: CHOLECYSTECTOMY 2017: IMGHX XR ENDO COLONSCOPY W DILATATION Social History: TOBACCO: reports that he has never smoked. He has never used smokeless tobacco. ETOH: reports current alcohol use. Social History Substance and Sexual Activity Drug Use Never Family History: Family History Problem Relation Name Age of Onset Alzheimer's disease Mother Cancer Father Alzheimer's disease Sister COPD Brother Screening: unknown Clinical information reviewed: Tobacco Allergies Meds Med Hx Surg Hx Fam Hx Physical Exam Airway Mallampati: III TM distance: >3 FB Neck ROM: full Mouth Open: normalendotracheal tube not in place Cardiovascular Dental dentition normal Pulmonary Abdominal Anesthesia Plan patient is NPO appropriate Any family history or previous problems with anesthesia no ASA 2 TIVA Any family history or previous problems with anesthesia no The patient is not a current smoker. Anesthetic plan and risks discussed with patient. YULIA Screening STOP-Bang Total Score: 2 Labs: No results found for: WBC, HGB, HCT, MCV, PLT No results found for: SODIUM, NA, POTASSIUM, K, CHLORIDE, CL, CO2, BUN, CREATININE, GLUCOSE, CALCIUM, PROT, BILIRUBINFL, ALKPHOS, AST, ALT, EGFR, GLOB No echocardiogram results found for the past 14 days No results found for this or any previous visit. 12/16/22 NORMAL SINUS RHYTHM NORMAL ECG Confirmed by DIPESH SOMERS, VIRGEN W ([id number]) on 12/24/2022 12:52:21 PM Equipment [facility]: [facility]* Telephone Encounter - Vale Estrada ATC - 10/03/2024 12:56 PM EST Fax successfully and paperwork scanned into the chart I called and spoke with the patient directly. I told him I completed the paperwork and faxed it to the number provided today. He said thank you. [address]26-2024 Telephone encounter Note* Telephone Encounter - Vale Estrada ATC - 10/03/2024 12:36 PM EST Paperwork completed and fax pending awaiting confirmation [address]26-2024 Telephone encounter Note* Telephone Encounter - Lucille Carrero - 10/03/2024 10:40 AM EST Blank paperwork is scanned into patient's media, hard copies are in ' mailbox. [address]26-2024 Telephone encounter Note* Telephone Encounter - Lucille Carrero - 10/03/2024 10:09 AM EST Saulo dropped off paperwork to the [place] office today. He is aware of the 7-10 business days for return on paperwork, as well as the $15 fee for paperwork. Patient would like paperwork faxed back to number listed for [employer] ([phone]) He would like notified when paperwork is completed, he will pay $15 fee over the phone at this time. Paperwork is in ' mailbox. [facility]10-29-2024 Hospital Discharge instructions* Discharge Instructions* Stephen Kincaid DO - 09/05/2024 8:56 PM EDT Thank you for allowing us to be involved in your care today. Please follow up as discussed during your stay. This information is included in your discharge paperwork. Appropriate follow up is essential in your continued care after today's visit. If you had any diagnostic studies (Labs, X-rays, CT-scan , Ultrasound or Cultures) have your Primary Care Physician (PCP) review them with you since there may be results that require further follow up or investigation. Return to the Emergency Department at any point with worsening conditions or concerns. The physician and staff of the Emergency Department would like to thank you for choosing our facility for your health care needs. Our goal is to provide exceptional service. You may be receiving a survey in the mail following your visit. Because your feedback is very important to us, we hope you will take the time to complete and return the survey. If for any reason, you feel that you cannot rateus Very Good or 5 for the service you received today, please let us know prior to your discharge. Please follow up with your family doctor or one of your choosing. You may find a provider through the [facility] Physician Referral Service by calling [phone] or by visiting [email or web address] Thank You for choosing the [facility] Emergency Department! * Attachments The following attachments cannot be sent through Care Everywhere. * Back [facility] ([place]) [facility] Emergency [facility] Note* Stephen Kincaid DO - 09/05/2024 7:55 PM EDT Images from the original note were not included. Emergency Department Report [facility] Service Date:.09/05/24 PCP: Kenneth Beckett Chief Complaint: Chief Complaint Patient presents with Back Pain Patient to ED with c/o lower back pain. States he was pulling a 2,000 lb maximo to his trailer last night around 830 pm and felt fine until he started driving. Patient has tried BenGay and Tylenol without relief HPI Saulo De La Cruz is a 63 y.o. male presents to the ED today due to low back pain bilaterally. He was pulling a maximo while at work yesterday said he was low 2000 lb put on an in his tractor trailer. Drovedone since then he from [place] by the time he got down there he said he was having significant back discomfort and pain it has been going on throughout the day. He came here as a worker's comp claim for back discomfort. He has had no bowel or bladder dysfunction. No saddle anesthesia. Denies anyweakness or paresthesias. It is bilateral lower back pain without radiation. Hurts to bend him move. Took some Tylenol with minimal relief and use some icy hot. Review of Systems: Review of Systems Constitutional: Negative for chills and fever. HENT: Negative for congestion, sore throat, trouble swallowing and voice change. Eyes: Negative for discharge and visual disturbance. Respiratory: Negative for cough and shortness of breath. Cardiovascular: Negative for chest pain and leg swelling. Gastrointestinal: Negative for abdominal pain, nausea and vomiting. Genitourinary: Negative for dysuria. Musculoskeletal: Positive for back pain. Negative for gait problem. Skin: Negative for rash. Neurological: Negative for weakness. Psychiatric/Behavioral: Negative for confusion. All other systems reviewed and are negative. Past Medical History: No past medical history on file. Past Surgical History: No past surgical history on file. Allergies: Allergies Allergen Reactions Contrast Dye [Ivp Dye, Iodine Containing] Kidney failure Medications: Patient's Medications New Prescriptions CYCLOBENZAPRINE 10 MG TABLET Take 1 tablet by mouth 3 times daily as needed for Muscle spasms. NAPROXEN 500 MG TABLET Take 1 tablet by mouth 2 times daily as needed. TRAMADOL 50 MG TABLET Take 1 tablet by mouth every 8 hours as needed for up to 5 days. Previous Medications No medications on file Modified Medications No medications on file Discontinued Medications No medications on file Family History: History reviewed. No pertinent family history. Social History: Social History Socioeconomic History Marital status: Spouse name: Not on file Number of children: Not on file Years of education: Not on file Highest education level: Not on file Occupational History Not on file Tobacco Use Smoking status: Never Passive exposure: Never Smokeless tobacco: Never Vaping Use Vaping status: Never Used Substance and Sexual Activity Alcohol use: Never Drug use: Never Sexual activity: Not on file Other Topics Concern Not on file Social History Narrative Not on file Social Determinants of Health Financial Resource Strain: Not on file Food Insecurity: Not on file Transportation Needs: Not on file Physical Activity: Not on file Stress: Not on file Social Connections: Not on file Intimate Partner Violence: Not on file Housing Stability: Not on file Physical Exam: Physical Exam Vitals and nursing note reviewed. Constitutional: General: He is not in acute distress. Appearance: Normal appearance. He is not toxic-appearing. HENT: Head: Normocephalic and atraumatic. Right Ear: External ear normal. Left Ear: External ear normal. Nose: Nose normal. Mouth/Throat: Mouth: Mucous membranes are moist. Pharynx: Uvula midline. Eyes: General: No scleral icterus. Right eye: No discharge. Left eye: No discharge. Extraocular Movements: Extraocular movements intact. Conjunctiva/sclera: Conjunctivae normal. Pupils: Pupils are equal, round, and reactive to light. Neck: Thyroid: No thyromegaly. Vascular: No JVD. Cardiovascular: Rate and Rhythm: Normal rate and regular rhythm. Heart sounds: Normal heart sounds. No murmur heard. Pulmonary: Effort: Pulmonary effort is normal. No respiratory distress. Breath sounds: Normal breath sounds. Abdominal: General: Bowel sounds are normal. Palpations: Abdomen is soft. Tenderness: There is no abdominal tenderness. Musculoskeletal: Right hand: Normal. Normal strength. Left hand: Normal. Normal strength. Cervical back: Normal range of motion and neck supple. Thoracic back: Normal. Lumbar back: Spasms and tenderness present. No swelling, signs of trauma or bony tenderness. Decreased range of motion. Back: Right lower leg: Normal. No swelling. No edema. Left lower leg: Normal. No swelling. No edema. Comments: Normal lower extremity exam. Ambulates without difficulty. No weakness. Normal patellar reflexes and Achilles reflexes bilaterally and normal brachioradialis reflexes bilaterally. 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 Sensation is intact in both upper and lower extremities bilaterally. Normal push and pull of the toes and normal strength of the legs bilaterally. No loss of bowel or bladder function. No saddle anesthesia or numbness to the groin or buttock area noted. Skin: General: Skin is warm. Capillary Refill: Capillary refill takes less than 2 seconds. Findings: No rash. Neurological: Mental Status: He is alert and oriented to person, place, and time. Cranial Nerves: No cranial nerve deficit. Deep Tendon Reflexes: Reflexes are normal and symmetric. Vital Signs During ED Visit Patient Vitals for the past 24 hrs: BP Temp Temp src Pulse Resp SpO2 Height Weight 09/05/241922 171/86 98.7 F (37.1 C) Oral 73 18 97 % -- -- 09/05/241920 -- -- -- -- -- -- 1.854 m (6' 1) 112.9 kg (249 lb) Orders/Results: Orders Placed This Encounter Ketorolac (TORADOL) injection 30 mg Cyclobenzaprine (FLEXERIL) tablet 10 mg Cyclobenzaprine 10 MG tablet naproxen 500 MG tablet traMADol 50 MG tablet traMADol (ULTRAM) tablet 1 Each No results found for this or any previous visit. Radiographic Imaging No orders to display Procedures: Procedures Moderate Sedation Procedure: No Medications Ordered/Given During ED Visit Medications traMADol (ULTRAM) tablet 1 Each (has no administration in time range) Ketorolac (TORADOL) injection 30 mg (30 mg Intramuscular Given 09/05/242039) Cyclobenzaprine (FLEXERIL) tablet 10 mg (10 mg Oral Given 09/05/242038) Medical Decision Making Patient will low back strain work. Stable without neuro findings. No hard neurologic findings. Given Toradol and Flexeril. I will discharge him with Naprosyn tramadol and Flexeril to use. Follow up primary work well tomorrow for evaluation and treatment options. Otherwise neurovascularly stable. Clinical Impression: 1. Acute bilateral low back pain without sciatica Acute No follow-ups on file. New Prescriptions CYCLOBENZAPRINE 10 MG TABLET Take 1 tablet by mouth 3 times daily as needed for Muscle spasms. NAPROXEN 500 MG TABLET Take 1 tablet by mouth 2 times daily as needed. TRAMADOL 50 MG TABLET Take 1 tablet by mouth every 8 hours as needed for up to 5 days. Discontinued Medications No medications on file An After Visit Summary was printed and given to the patient with above information. Stephen Kincaid DO 09/05/242057 [facility] Emergency department Note* Stephen Pal Kincaid DO - 09/05/2024 7:55 PM EDT Images from the original note were not included. Emergency Department Report [facility] Service Date:.09/05/24 PCP: Kenneth Beckett Chief Complaint: Chief Complaint Patient presents with Back Pain Patient to ED with c/o lower back pain. States he was pulling a 2,000 lb maximo to his trailer last night around 830 pm and felt fine until he started driving. Patient has tried BenGay and Tylenol without relief HPI Saulo De La Cruz is a 63 y.o. male presents to the ED today due to low back pain bilaterally. He was pulling a maximo while at work yesterday said he was low 2000 lb put on an in his tractor trailer. Drovedone since then he from [place] by the time he got down there he said he was having significant back discomfort and pain it has been going on throughout the day. He came here as a worker's comp claim for back discomfort. He has had no bowel or bladder dysfunction. No saddle anesthesia. Denies anyweakness or paresthesias. It is bilateral lower back pain without radiation. Hurts to bend him move. Took some Tylenol with minimal relief and use some icy hot. Review of Systems: Review of Systems Constitutional: Negative for chills and fever. HENT: Negative for congestion, sore throat, trouble swallowing and voice change. Eyes: Negative for discharge and visual disturbance. Respiratory: Negative for cough and shortness of breath. Cardiovascular: Negative for chest pain and leg swelling. Gastrointestinal: Negative for abdominal pain, nausea and vomiting. Genitourinary: Negative for dysuria. Musculoskeletal: Positive for back pain. Negative for gait problem. Skin: Negative for rash. Neurological: Negative for weakness. Psychiatric/Behavioral: Negative for confusion. All other systems reviewed and are negative. Past Medical History: No past medical history on file. Past Surgical History: No past surgical history on file. Allergies: Allergies Allergen Reactions Contrast Dye [Ivp Dye, Iodine Containing] Kidney failure Medications: Patient's Medications New Prescriptions CYCLOBENZAPRINE 10 MG TABLET Take 1 tablet by mouth 3 times daily as needed for Muscle spasms. NAPROXEN 500 MG TABLET Take 1 tablet by mouth 2 times daily as needed. TRAMADOL 50 MG TABLET Take 1 tablet by mouth every 8 hours as needed for up to 5 days. Previous Medications No medications on file Modified Medications No medications on file Discontinued Medications No medications on file Family History: History reviewed. No pertinent family history. Social History: Social History Socioeconomic History Marital status: Spouse name: Not on file Number of children: Not on file Years of education: Not on file Highest education level: Not on file Occupational History Not on file Tobacco Use Smoking status: Never Passive exposure: Never Smokeless tobacco: Never Vaping Use Vaping status: Never Used Substance and Sexual Activity Alcohol use: Never Drug use: Never Sexual activity: Not on file Other Topics Concern Not on file Social History Narrative Not on file Social Determinants of Health Financial Resource Strain: Not on file Food Insecurity: Not on file Transportation Needs: Not on file Physical Activity: Not on file Stress: Not on file Social Connections: Not on file Intimate Partner Violence: Not on file Housing Stability: Not on file Physical Exam: Physical Exam Vitals and nursing note reviewed. Constitutional: General: He is not in acute distress. Appearance: Normal appearance. He is not toxic-appearing. HENT: Head: Normocephalic and atraumatic. Right Ear: External ear normal. Left Ear: External ear normal. Nose: Nose normal. Mouth/Throat: Mouth: Mucous membranes are moist. Pharynx: Uvula midline. Eyes: General: No scleral icterus. Right eye: No discharge. Left eye: No discharge. Extraocular Movements: Extraocular movements intact. Conjunctiva/sclera: Conjunctivae normal. Pupils: Pupils are equal, round, and reactive to light. Neck: Thyroid: No thyromegaly. Vascular: No JVD. Cardiovascular: Rate and Rhythm: Normal rate and regular rhythm. Heart sounds: Normal heart sounds. No murmur heard. Pulmonary: Effort: Pulmonary effort is normal. No respiratory distress. Breath sounds: Normal breath sounds. Abdominal: General: Bowel sounds are normal. Palpations: Abdomen is soft. Tenderness: There is no abdominal tenderness. Musculoskeletal: Right hand: Normal. Normal strength. Left hand: Normal. Normal strength. Cervical back: Normal range of motion and neck supple. Thoracic back: Normal. Lumbar back: Spasms and tenderness present. No swelling, signs of trauma or bony tenderness. Decreased range of motion. Back: Right lower leg: Normal. No swelling. No edema. Left lower leg: Normal. No swelling. No edema. Comments: Normal lower extremity exam. Ambulates without difficulty. No weakness. Normal patellar reflexes and Achilles reflexes bilaterally and normal brachioradialis reflexes bilaterally. 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 Sensation is intact in both upper and lower extremities bilaterally. Normal push and pull of the toes and normal strength of the legs bilaterally. No loss of bowel or bladder function. No saddle anesthesia or numbness to the groin or buttock area noted. Skin: General: Skin is warm. Capillary Refill: Capillary refill takes less than 2 seconds. Findings: No rash. Neurological: Mental Status: He is alert and oriented to person, place, and time. Cranial Nerves: No cranial nerve deficit. Deep Tendon Reflexes: Reflexes are normal and symmetric. Vital Signs During ED Visit Patient Vitals for the past 24 hrs: BP Temp Temp src Pulse Resp SpO2 Height Weight 09/05/241922 171/86 98.7 F (37.1 C) Oral 73 18 97 % -- -- 09/05/241920 -- -- -- -- -- -- 1.854 m (6' 1) 112.9 kg (249 lb) Orders/Results: Orders Placed This Encounter Ketorolac (TORADOL) injection 30 mg Cyclobenzaprine (FLEXERIL) tablet 10 mg Cyclobenzaprine 10 MG tablet naproxen 500 MG tablet traMADol 50 MG tablet traMADol (ULTRAM) tablet 1 Each No results found for this or any previous visit. Radiographic Imaging No orders to display Procedures: Procedures Moderate Sedation Procedure: No Medications Ordered/Given During ED Visit Medications traMADol (ULTRAM) tablet 1 Each (has no administration in time range) Ketorolac (TORADOL) injection 30 mg (30 mg Intramuscular Given 09/05/242039) Cyclobenzaprine (FLEXERIL) tablet 10 mg (10 mg Oral Given 09/05/242038) Medical Decision Making Patient will low back strain work. Stable without neuro findings. No hard neurologic findings. Given Toradol and Flexeril. I will discharge him with Naprosyn tramadol and Flexeril to use. Follow up primary work well tomorrow for evaluation and treatment options. Otherwise neurovascularly stable. Clinical Impression: 1. Acute bilateral low back pain without sciatica Acute No follow-ups on file. New Prescriptions CYCLOBENZAPRINE 10 MG TABLET Take 1 tablet by mouth 3 times daily as needed for Muscle spasms. NAPROXEN 500 MG TABLET Take 1 tablet by mouth 2 times daily as needed. TRAMADOL 50 MG TABLET Take 1 tablet by mouth every 8 hours as needed for up to 5 days. Discontinued Medications No medications on file An After Visit Summary was printed and given to the patient with above information. Stephen Kincaid DO 09/05/242057 [facility] History of Present illness Narrative* Edinson Alanis MD - 09/04/2024 10:00 AM EDT Images from the original note were not included. [facility] - [place] [address] [place] [id number] Dept: [phone] Dept Chief Complaint Patient presents with New Patient Bilateral wrist pain HPI Saulo De La Cruz is a 63 y.o. right handed male that presents for evaluation of pain in his BILATERAL Wrist, left is worse right. Symptoms have been present for years. The symptoms started after graduallyover time. Pain Characteristics Described as aching, sharp, stabbing, and throbbing Worse with the cold Alleviated OTC NSAIDS Severity moderate Previous Treatments NSAIDs: No - Have not tried Injection: No - Has never received an injection Therapy: No - Has not attempted formal therapy Splinting: No - Has not tried any splinting Surgery: No - Has not had previous surgery on the symptomatic extremity MRI: No Has not had an MRI Diffuse wrist pain bilaterally with the left side worse than the right. Pain is largely ulnar-sided. Also endorses numbness tingling in the both hands worse at night when driving for prolonged periods. No results found for: HGBA1C OBJECTIVE BP 120/78 Ht 6' 2 (1.88 m) Wt 248 lb (112 kg) BMI 31.84 kg/m Ortho Exam Wrist ROM:LEFT Point tender palpation over the dorsal DRUJ and ulnar fovea Flexion 80 Extension 80 Supination 45 Pronation 80 RIGHT LEFT Atrophy not present not present Tinel's at Wrist POSITIVE POSITIVE Carpal Compression negative negative Tinel's at Elbow negative negative Flexion/Compression Elbow negative negative Ulnar Nerve Subluxation not appreciated not appreciated APB Strength 5/5 5/5 Intrinsic Strength 5/5 5/5 2-point discrimination (mm) RIGHT Hand Thumb Index Long Ring Small r u r u r u r u r u 5 5 5 5 5 5 5 5 5 5 Median Ulnar 2-point discrimination (mm) LEFT Hand Thumb Index Long Ring Small r u r u r u r u r u 5 5 5 5 5 5 5 5 5 5 Median Ulnar IMAGING Plain films were taken today and reviewed in office. 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 Bilateral wrist pain XR wrist 3+ views left, XR wrist 3+ views right 2. Carpal tunnel syndrome of left wrist 3. DRUJ (distal radioulnar joint) post-traumatic arthritis, left 4. DRUJ (distal radioulnar joint) post-traumatic arthritis, right 5. Carpal tunnel syndrome on right PLAN I discussed with Saulo the natural history, expected outcome, and risks/benefits of both operative and nonoperative management of his particular diagnosis relative to his age, activity level, previoustreatment, and physical exam. Saulo had some excellent questions, all of which were answered to his satisfaction. Saulo elected to proceed with left hand carpal tunnel release. In the same setting I will inject hisleft DRUJ. He was comfortable this plan. I had an extensive discussion with . Saulo De La Cruz regarding the natural history, etiology, and roasterman consequences of his condition. We discussed both operative and non operative treatment options and Saulo De La Cruz elected to proceed with surgical intervention. I have discussed with . Saulo De La Cruz the potential complications, limitations, expectations, alternatives, and risks of the proposed surgical procedure. Risks discussed include but are not limited to the risk of infection, iatrogenic injury to normal neurovascular structures, persistent pain and disability, unsightly scar, stiffness, complex regional pain syndrome, malunion, non union, hardware failure, need for hardware removal, loss of limb, myocardial infarction, deep vein thrombosis, pulmonary embolism and even . We also discussed the potential risk of COVID-19 exposure or infection and how it could alter his post operative recovery course. He has had full opportunity to ask his questions. I have answered them all to his satisfaction. I feel that Mr. Saulo De La Cruz does understand our discussion today and he is comfortable providing informed consent for the procedure. Follow-up: Saulo will followup with my physician prosthetic assistant, Jhon Garcia PA-C post operatively. He knows to call the office with any questions or concerns in the interim. Future Imaging: NONE Edinson Alanis MD Hand and Upper Extremity Surgery [facility] Department of Orthopaedics and Sports Medicine 09/04/2024 (Please note that portions of this note may have been completed with a voice recognition program. Efforts were made to edit the dictations but occasionally words are mis-transcribed.) [facility]07[facility] History of Present illness Narrative* Neisha Salguero RT(R) - 05/29/2024 2:20 PM EDT Radiology Service Progress Note PATIENT NAME: Roberto De La Cruz DATE OF SERVICE: May 29, 2024 TIME: 2:20 PM PATIENT IDENTITY VERIFICATION COMPLETED USING TWO (2) IDENTIFIERS: Name and Date of confirmedby patient verbally. FALL SCREENING: Has the patient had 2 falls in the last year or 1 fall with injury or currently using an Ambulatory Assistive Device (Walker, Cane, Wheelchair, Crutches, etc.)? No PATIENT GENDER DATA: Male PATIENT RELEVANT IMPLANT DATA REVIEWED: Yes PATIENT PRESENTS WITH AN IMPLANTABLE OR ATTACHED RETAIL SALES ASSOCIATE SEASONAL: No RADIOLOGY DEPARTMENT: General X-ray: Exam(s) Completed: Chest X-Ray PERIPHERAL IV DATA: Not applicable SIGNED BY: RT Acacia(Kamla) May 29, 2024 2:20 PM documented in this encounterK[facility]07-[facility]24 NoteHNO ID: [id number] Author: NEISHA SALGUERO RT(R) Service: Radiology Author Type: Technologist Type: Progress Notes Filed: 05/29/2024 14:27 Note Text: Radiology Service Progress Note PATIENT NAME: Roberto De La Cruz DATE OF SERVICE: May 29, 2024 TIME: 2:20 PM PATIENT IDENTITY VERIFICATION COMPLETED USING TWO (2) IDENTIFIERS: Name and Date of confirmed by patient verbally. FALL SCREENING: Has the patient had 2 falls in the last year or 1 fall with injury or currently using an Ambulatory Assistive Device (Walker, Cane, Wheelchair, Crutches, etc.)? No PATIENT GENDER DATA: Male PATIENT RELEVANT IMPLANT DATA REVIEWED: Yes PATIENT PRESENTS WITH AN IMPLANTABLE OR ATTACHED RETAIL SALES ASSOCIATE SEASONAL: No RADIOLOGY DEPARTMENT: General X-ray: Exam(s) Completed: Chest X-Ray PERIPHERAL IV DATA: Not applicable SIGNED BY: HORACIO Roger) May 29, 2024 2:20 [facility]07-22-2024 NoteHNO ID: [id number] Author: VALE IYER APRN.NETWORK DESIGN ARCHITECT Service: ? Author Type: Nurse Practitioner Type: Progress Notes Filed: 05/29/2024 15:19 Note Text: This note was created using NoteWriter. Subjective Roberto De La Cruz is a 63 year old male. 63 year old male with PMH afib and hyperlipidemia presents for illness. Acute onset one week ago +cough At times productive and then at times non productive. +fatigue +nasal draining + nasal congestion +sinus pressure +sweating. +headache +body aches Denies ear pain Denies N/V/D Denies tobacco usage Has used Tylenol The history is provided by the patient. No oracle security consultant was used. Cough This is a new problem. The current episode started more than 1 week ago. The problem occurs constantly. The problem has been gradually worsening. Cough characteristics: productive and then non productive. There has been no fever. Associated symptoms include ear congestion, rhinorrhea and myalgias. Pertinent negatives include no chest pain, no chills, no sweats, no weight loss, no ear pain, no headaches, no sore throat, no shortness of breath, no wheezing and no eye redness. Treatments tried: Tylenol. The treatment provided no relief. He is not a smoker. His past medical history does not include bronchitis, pneumonia, bronchiectasis, COPD, emphysema or asthma. PAST MEDICAL HISTORY Diagnosis Date A-fib (HCC) 04/2020 PAST SURGICAL HISTORY Procedure Laterality Date COLONOSCOPY FLX DX W/COLLJ SPEC WHEN PFRMD 11/27/2016 Colonoscopy LAPAROSCOPIC CHOLECYSTECTOMY 06/20/2019 Dr. Gagan Richardson PAST SURGICAL HISTORY OF finger surgery x 2 TONSILLECTOMY PRIMARY/SECONDARY Tonsillectomy and adnoids VENOUS EXTREMITY UNILATERAL 10/08/2021 US neg DVT left lower leg ALLERGIES Iodinated Contrast Media MEDICATIONS sertraline (ZOLOFT) 50 mg tablet Take 1 tablet by mouth once daily. albuterol HFA (VENTOLIN HFA) 90 mcg/actuation inhaler Inhale 2 Puffs as instructed every 4 hours as needed for wheezing/shortness of breath. benzonatate (TESSALON PERLES) 100 mg capsule Take 1 capsule by mouth three times a day as needed for cough. doxycycline (VIBRA-TABS) 100 mg tablet Take 1 tablet by mouth two times a day for 7 days. benzonatate (TESSALON PERLES) 100 mg capsule Take 1 capsule by mouth three times a day as needed for cough. (Patient not taking: Reported on 05/29/2024) FAMILY HISTORY Problem Relation Age of Onset Alzheimer's Disease Mother Cancer Father brain tumor ,lung removed and kidney removed COPD Brother Osteoporosis Paternal Grandfather Alzheimer's Disease Sister Social History Tobacco Use Smoking status: Never Smokeless tobacco: Never Vaping Use Vaping Use: Never used Substance Use Topics Alcohol use: Yes Comment: occasional Drug use: No Review of Systems Constitutional: Positive for diaphoresis and fever. Negative for chills and weight loss. HENT: Positive for congestion and rhinorrhea. Negative for ear pain and sore throat. Eyes: Negative for discharge, redness and itching. Respiratory: Positive for cough. Negative for shortness of breath and wheezing. Cardiovascular: Negative for chest pain. Gastrointestinal: Negative for abdominal pain, diarrhea, nausea and vomiting. Musculoskeletal: Positive for myalgias. Skin: Negative for color change, pallor, rash and wound. Allergic/Immunologic: Negative for environmental allergies, food allergies and immunocompromised state. Neurological: Negative for dizziness, facial asymmetry, light-headedness, numbness and headaches. Hematological: Negative for adenopathy. Does not bruise/bleed easily. Psychiatric/Behavioral: Negative for agitation and behavioral problems. Objective BP 128/80 Pulse 65 Temp 36.6 ?C (97.8 ?F) Resp 21 Wt 115 kg (253 lb 8.5 oz) SpO2 97% BMI 34.38 kg/m? Physical Exam Vitals and nursing note reviewed. Constitutional: General: He is not in acute distress. Appearance: Normal appearance. He is not ill-appearing, toxic-appearing or diaphoretic. HENT: Head: Normocephalic and atraumatic. Comments: +ethmoid sinus pressure Right Ear: External ear normal. Left Ear: External ear normal. Nose: Nose normal. No congestion or rhinorrhea. Mouth/Throat: Mouth: Mucous membranes are moist. Pharynx: Oropharynx is clear. Posterior oropharyngeal erythema present. No oropharyngeal exudate. Eyes: General: Right eye: No discharge. Left eye: No discharge. Extraocular Movements: Extraocular movements intact. Conjunctiva/sclera: Conjunctivae normal. Pupils: Pupils are equal, round, and reactive to light. Cardiovascular: Rate and Rhythm: Normal rate and regular rhythm. Pulses: Normal pulses. Heart sounds: Normal heart sounds. No murmur heard. No friction rub. No gallop. Pulmonary: Effort: Pulmonary effort is normal. No respiratory distress. Breath sounds: Normal breath sounds. No stri (more content not included)... [facility]07-22-2024 History of Present illness Narrative* Vale Iyer APRN.[facility] - 05/29/2024 2:12 PM EDT This note was created using NoteWriter. Subjective Roberto De La Cruz is a 63 year old male. 63 year old male with PMH afib and hyperlipidemia presents for illness. Acute onset one week ago +cough At times productive and then at times non productive. +fatigue +nasal draining + nasal congestion +sinus pressure +sweating. +headache +body aches Denies ear pain Denies N/V/D Denies tobacco usage Has used Tylenol The history is provided by the patient. No oracle security consultant was used. Cough This is a new problem. The current episode started more than 1 week ago. The problem occurs constantly. The problem has been gradually worsening. Cough characteristics: productive and then non productive. There has been no fever. Associated symptoms include ear congestion, rhinorrhea and myalgias. Pertinent negatives include no chest pain, no chills, no sweats, no weight loss, no ear pain, no headaches, no sore throat, no shortness of breath, no wheezing and no eye redness. Treatments tried: Tylenol. The treatment provided no relief. He is not a smoker. His past medical history does not include bronchitis, pneumonia, bronchiectasis, COPD, emphysema or asthma. PAST MEDICAL HISTORY Diagnosis Date A-fib (HCC) 04/2020 PAST SURGICAL HISTORY Procedure Laterality Date COLONOSCOPY FLX DX W/COLLJ SPEC WHEN PFRMD 11/27/2016 Colonoscopy LAPAROSCOPIC CHOLECYSTECTOMY 06/20/2019 Dr. Gagan Richardson PAST SURGICAL HISTORY OF finger surgery x 2 TONSILLECTOMY PRIMARY/SECONDARY <AGE 14 Tonsillectomy and adnoids VENOUS EXTREMITY UNILATERAL 10/08/2021 US neg DVT left lower leg ALLERGIES Iodinated Contrast Media MEDICATIONS sertraline (ZOLOFT) 50 mg tablet Take 1 tablet by mouth once daily. albuterol HFA (VENTOLIN HFA) 90 mcg/actuation inhaler Inhale 2 Puffs as instructed every 4 hours asneeded for wheezing/shortness of breath. benzonatate (TESSALON PERLES) 100 mg capsule Take 1 capsule by mouth three times a day as needed for cough. doxycycline (VIBRA-TABS) 100 mg tablet Take 1 tablet by mouth two times a day for 7 days. benzonatate (TESSALON PERLES) 100 mg capsule Take 1 capsule by mouth three times a day as needed for cough. (Patient not taking: Reported on 05/29/2024) FAMILY HISTORY Problem Relation Age of Onset Alzheimer's Disease Mother Cancer Father brain tumor ,lung removed and kidney removed COPD Brother Osteoporosis Paternal Grandfather Alzheimer's Disease Sister Social History Tobacco Use Smoking status: Never Smokeless tobacco: Never Vaping Use Vaping Use: Never used Substance Use Topics Alcohol use: Yes Comment: occasional Drug use: No Review of Systems Constitutional: Positive for diaphoresis and fever. Negative for chills and weight loss. HENT: Positive for congestion and rhinorrhea. Negative for ear pain and sore throat. Eyes: Negative for discharge, redness and itching. Respiratory: Positive for cough. Negative for shortness of breath and wheezing. Cardiovascular: Negative for chest pain. Gastrointestinal: Negative for abdominal pain, diarrhea, nausea and vomiting. Musculoskeletal: Positive for myalgias. Skin: Negative for color change, pallor, rash and wound. Allergic/Immunologic: Negative for environmental allergies, food allergies and immunocompromised state. Neurological: Negative for dizziness, facial asymmetry, light-headedness, numbness and headaches. Hematological: Negative for adenopathy. Does not bruise/bleed easily. Psychiatric/Behavioral: Negative for agitation and behavioral problems. Objective BP 128/80 Pulse 65 Temp 36.6 C (97.8 F) Resp 21 Wt 115 kg (253 lb 8.5 oz) SpO2 97% BMI 34.38 kg/m Physical Exam Vitals and nursing note reviewed. Constitutional: General: He is not in acute distress. Appearance: Normal appearance. He is not ill-appearing, toxic-appearing or diaphoretic. HENT: Head: Normocephalic and atraumatic. Comments: +ethmoid sinus pressure Right Ear: External ear normal. Left Ear: External ear normal. Nose: Nose normal. No congestion or rhinorrhea. Mouth/Throat: Mouth: Mucous membranes are moist. Pharynx: Oropharynx is clear. Posterior oropharyngeal erythema present. No oropharyngeal exudate. Eyes: General: Right eye: No discharge. Left eye: No discharge. Extraocular Movements: Extraocular movements intact. Conjunctiva/sclera: Conjunctivae normal. Pupils: Pupils are equal, round, and reactive to light. Cardiovascular: Rate and Rhythm: Normal rate and regular rhythm. Pulses: Normal pulses. Heart sounds: Normal heart sounds. No murmur heard. No friction rub. No gallop. Pulmonary: Effort: Pulmonary effort is normal. No respiratory distress. Breath sounds: Normal breath sounds. No stridor. No wheezing, rhonchi or rales. Comments: Harsh cough noted Chest: Chest wall: No tenderness. Abdominal: General: Abdomen is flat. There is no distension. Palpations: Abdomen is soft. There is no mass. Tenderness: There is no abdominal tenderness. There is no guarding or rebound. Hernia: No hernia is present. Musculoskeletal: General: No swelling, tenderness, deformity or signs of injury. Normal range of motion. Cervical back: Normal range of motion and neck supple. No rigidity or tenderness. Right lower leg: No edema. Left lower leg: No edema. Lymphadenopathy: Cervical: No cervical adenopathy. Skin: General: Skin is warm and dry. Capillary Refill: Capillary refill takes less than 2 seconds. Coloration: Skin is not jaundiced or pale. Findings: No bruising, lesion or rash. Neurological: General: No focal deficit present. Mental Status: He is alert and oriented to person, place, and time. Cranial Nerves: No cranial nerve deficit. Sensory: No sensory deficit. Motor: No weakness. Coordination: Coordination normal. Gait: Gait normal. Deep Tendon Reflexes: Reflexes normal. Psychiatric: Mood and Affect: Mood normal. Behavior: Behavior normal. Thought Content: Thought content normal. Assessment and Plan ASSESSMENT/PLAN: 1. Acute cough - ICD9: 786.2, ICD10: R05.1 (primary diagnosis) X one week Worsening - XR CHEST 2V FRONTAL/LAT-negative for pneumonia 2. Rhinosinusitis - ICD9: 473.9, ICD10: J32.9 - Will begin treatment with as per antibiotic as written, see orders - The patient should also be given OTC cough and cold meds as needed, warm salt water gargles, throat lozenges and/or OTC throat spray as needed, and nasal saline gtts and suction prn for the first 5-7 days of treatment. - Supportive care with plenty of fluids, rest, and analgesia prn. - Follow up in 3-5 days if symptoms persist or worsen. Vale Iyer APRN.NETWORK DESIGN ARCHITECT documented in this encounterK[facility]07-01-2024 Telephone encounter Note * Telephone Encounter - Apurva Ambrocio RN - 05/08/2024 12:37 PM EDT Pt called and is notified of providers results and instructions. Pt voices understanding. Apurva Ambrocio RN [facility]07-01-2024 Miscellaneous Notes* Telephone Encounter - Apurva Ambrocio RN - 05/08/2024 12:37 PM EDT Pt called and is notified of providers results and instructions. Pt voices understanding. Apurva Ambrocio RN * Telephone Encounter - Kenneth Beckett MD - 05/08/2024 12:02 PM EDT Ldl is a little higher. Just watch cholesterol in the diet. documented in this encounterK[facility]07-01-2024 Telephone encounter Note * Telephone Encounter - Kenneth Beckett MD - 05/08/2024 12:02 PM EDT Ldl is a little higher. Just watch cholesterol in the diet. [facility]05-03[facility] Telephone encounter Note* Telephone Encounter - Jewels Cordon - 03/10/2024 10:03 AM EDT Patient has been identified by name and date of : Yes Last office visit in this department: 12/27/2023 RX INSTRUCTIONS: Patient aware RX will be sent to pharmacy. No need to notify patient. Patient phones requesting refills as follows: Requested Prescriptions Pending Prescriptions Disp Refills sertraline (ZOLOFT) 50 mg tablet 30 tablet 1 Sig: Take 1 tablet by mouth once daily. Please review and advise. Jewels Cordon [facility]05-03-2024 Miscellaneous Notes* Telephone Encounter - Jewels Cordon - 03/10/2024 10:03 AM EDT Patient has been identified by name and date of : Yes Last office visit in this department: 12/27/2023 RX INSTRUCTIONS: Patient aware RX will be sent to pharmacy. No need to notify patient. Patient phones requesting refills as follows: Requested Prescriptions Pending Prescriptions Disp Refills sertraline (ZOLOFT) 50 mg tablet 30 tablet 1 Sig: Take 1 tablet by mouth once daily. Please review and advise. Jewels Cordon documented in this encounterKet[facility]03-04-2024 Miscellaneous Notes* Telephone Encounter - Hanh Sharma APRN.CNS - 01/10/2024 4:38 PM EST Sertraline renewed. * Telephone Encounter - Kesha El - 01/10/2024 4:00 PM EST Patient has been identified by name and date of : Yes, Spouse phones for refill(s): Requested Prescriptions Pending Prescriptions Disp Refills sertraline (ZOLOFT) 50 mg tablet 30 tablet 1 Sig: Take 1 tablet by mouth once daily. Date of last office visit in primary care: 12/27/2023 Date of next office visit in primary care: Visit date not found Please advise. Thank you. Kesha El. documented in this encounterK[facility]02-22-2024 Miscellaneous Notes* Telephone Encounter - Radha Tomlinson RN - 12/30/2023 1:38 PM EST Patient calls back and states that he did not clam picker medication. Patient states that he is doing ok. Cold sore seems to be healing. Radha Tomlinson RN * Telephone Encounter - Tawana Dillard LPN - 12/30/2023 11:50 AM EST Attempted to contact left message to call and speak with nurses. * Telephone Encounter - Kenneth Beckett MD - 12/30/2023 10:06 AM EST Cold sore med was denied. If he did not pick it up, check how cold sore is doing and let me know. Can try an oral med. * Telephone Encounter - Aicha Ramirez LPN - 12/30/2023 9:54 AM EST Images from the original note were not included. PA was denied. Stating decision details will be faxed to office. Will route once received. Odessa Ramirez LPN * Telephone Encounter - Aicha Ramirez LPN - 12/29/2023 3:18 PM EST Prior Authorization has been completed online at [employer] for Acyclovir, will await response. HURT- [id number] Please keep encounter open until final decision has been received and documented from insurance company. Odessa Ramirez LPN documented in this encounterKet[facility]02-20-2024 Miscellaneous Notes* Telephone Encounter - Jolene Whiting RN - 12/28/2023 10:43 AM EST Phoned pt and given provider's message below with verbalized understanding. * Telephone Encounter - Kenneth Beckett MD - 12/27/2023 7:23 PM EST Let him know his repeat xray was ok. No pneumonia. documented in this encounterKettering [facility]02-19-2024 History of Present illness Narrative* Tiera Nolasco, RT(R) - 12/27/2023 6:00 PM EST Radiology Service Progress Note PATIENT NAME: Roberto De La Cruz DATE OF SERVICE: December 27, 2023 TIME: 5:58 PM PATIENT IDENTITY VERIFICATION COMPLETED USING TWO (2) IDENTIFIERS: Name and Date of confirmedby patient verbally. FALL SCREENING: Has the patient had 2 falls in the last year or 1 fall with injury or currently using an Ambulatory Assistive Device (Walker, Cane, Wheelchair, Crutches, etc.)? 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 ENT: Patient complains of sinus pressure. Duration: 12/19/23 (1 week) Fever: has not checked but does have fever blisters. When wakes up bed is wet like fever broke Headache: Yes. Sore throat: No. Ear pain: Yes. Right ear. UC reported was red told otitis media. Nasal drainage: Yes. Cough: Yes. Productive. Shortness of breath: a little bit. Nausea: No. Vomiting: No. Diarrhea: Yes. Previous treatment: Started on Doxy from 12/22/23 has noticed no difference. Has taken mucinex and robitussin OTC. Had chest x-ray Feels wheezy. Is coughing badly. Is urinating well. Not as much appetite. No chest pain. Covid, flu and rsv were negative. See previous ov: 63 male with no PMH presents today with acute onset URI symptoms for four days. Pertinent positivesinclude productive cough with holland sputum, nasal congestion, body aches, chills, fatigue, decreasedappetite, and headache. Pertinent negatives include rhinorrhea, GI upset, ear pain, eye pain, sinuspain, and sore throat. Patient was seen in [facility] 2 days ago with similar symptoms. COVID/flu/rsv negative and chest x-ray was negative. Nonsmoker and not history of asthma or COPD. The history is provided by the patient. URI He complains of cough. There is no chest tightness, difficulty breathing or shortness of breath. This is a new problem. The current episode started in the past 7 days. The problem occurs constantly. The problem has been gradually worsening. The cough is productive of sputum (holland sputum). Associated symptoms include appetite change, dyspnea on exertion, headaches, malaise/fatigue, myalgias and nasal congestion. Pertinent negatives include no chest pain, ear congestion, ear pain, fever, rhinorrhea or sore throat. Exacerbated by: worse at night. His symptoms are alleviated by nothing. He reports no improvement on treatment. His symptoms are not alleviated by OTC cough suppressant and rest. There are no known risk factors for lung disease. There is no history of asthma, COPD or pneumonia. MEDICATIONS: Current Outpatient Medications Medication Sig doxycycline (VIBRA-TABS) 100 mg tablet Take 1 tablet by mouth two times a day for 7 days. benzonatate (TESSALON PERLES) 100 mg capsule Take 1 capsule by mouth three times a day as needed for cough. sertraline (ZOLOFT) 50 mg tablet Take 1 tablet by mouth once daily. No current facility-administered medications for this visit. ALLERGIES: ALLERGIES Allergen Reactions Iodinated Contrast * Other: See Comments Kidney failure PAST MEDICAL HISTORY Diagnosis Date A-fib (HCC) 04/2020 PAST SURGICAL HISTORY Procedure Laterality Date COLONOSCOPY FLX DX W/COLLJ SPEC WHEN PFRMD 11/27/2016 Colonoscopy LAPAROSCOPIC CHOLECYSTECTOMY 06/20/2019 Dr. Gagan Richardson PAST SURGICAL HISTORY OF finger surgery x 2 TONSILLECTOMY PRIMARY/SECONDARY <AGE 14 Tonsillectomy and adnoids VENOUS EXTREMITY UNILATERAL 10/08/2021 US neg DVT left lower leg FAMILY HISTORY Problem Relation Age of Onset Alzheimer's Disease Mother Cancer Father brain tumor ,lung removed and kidney removed COPD Brother Osteoporosis Paternal Grandfather Alzheimer's Disease Sister Social History Tobacco Use Smoking status: Never Smokeless tobacco: Never Vaping Use Vaping Use: Never used Substance Use Topics Alcohol use: Yes Comment: occasional Drug use: No Reviewed current medications, allergies, past medical history, surgical history, family history andsocial history today. REVIEW OF SYSTEMS All other reviewed and negative other than HPI. VITALS: BP 126/82 Pulse 76 Wt 117.5 kg (259 lb) SpO2 96% BMI 34.17 kg/m Last 4 Encounter Wt Readings: Date: Wt: 12/22/2023 117.9 kg (260 lb) 12/20/2023 122 kg (269 lb) 12/13/2023 115.7 kg (255 lb) 12/01/2023 121.1 kg (267 lb) PHYSICAL EXAMINATION: General appearance: Well appearing, alert, in no acute distress, well-hydrated, well nourished. Skin cold sore on lip Head: Normocephalic, no masses, lesions, tenderness or abnormalities Eyes: Anicteric sclera. Pupils are equally round and reactive to light. Extraocular movements are intact. Ears: External ears normal, canals clear, right tm is slightly dull. No redness. Nose/Sinuses: Nares normal, septum midline, mucosa normal, no drainage or sinus tenderness Oropharynx: Lips, mucosa, and tongue normal, teeth and gums normal, oropharynx normal Neck: Supple, no adenopath Lungs: moving air well. Bilateral rhonchi. Heart: RRR without murmur, gallop, or rubs. No ectopy Abdomen: Normal abdominal exam, Abdomen soft, non-tender. Bowel sounds normal. No masses, organomegaly ASSESSMENT/PLAN: 1. Bronchitis - ICD9: 490, ICD10: J40 (primary diagnosis) - Discussed risks and benefits of new medication with the patient. Advised them to call if any sideeffects or questions. Red flags for re-assessment reviewed with patient in detail. Call if symptoms worsen at all or if not better in one to two weeks Reviewed diagnosis and treatment options in detail. Questions were answered. Patient expressed understanding of treatment plan. - off work slip given. - XR CHEST 2V FRONTAL/LAT - CBC + DIFF - BASIC METABOLIC PNL - ALBUTEROL SULFATE HFA 90 MCG/ACTUATION AEROSOL INHALER - METHYLPREDNISOLONE 4 MG TABLETS IN A DOSE PACK 2. Paroxysmal atrial fibrillation (HCC) - ICD9: 427.31, ICD10: I48.0 - stable. 3. Hyperlipidemia, mixed - ICD9: 272.2, ICD10: E78.2 - Controlled - Continue current medications 4. Hypertriglyceridemia - ICD9: 272.1, ICD10: E78.1 - stable. 5. Recurrent cold sores - ICD9: 054.9, ICD10: B00.1 - Red flags for re-assessment reviewed with patient in detail. - ACYCLOVIR 5 % TOPICAL CREAM Kenneth Beckett MD documented in this encounterKet[facility]02-14-2024 History of Present illness Narrative* Vale Iyer APRN.NETWORK DESIGN ARCHITECT - 12/22/2023 7:43 PM EST This note was created using [employer]wl[employer]. Subjective Roberto De La Cruz is a 63 year old male. 63 male with no PMH presents today with acute onset URI symptoms for four days. Pertinent positivesinclude productive cough with holland sputum, nasal congestion, body aches, chills, fatigue, decreasedappetite, and headache. Pertinent negatives include rhinorrhea, GI upset, ear pain, eye pain, sinuspain, and sore throat. Patient was seen in [facility] 2 days ago with similar symptoms. COVID/flu/rsv negative and chest x-ray was negative. Nonsmoker and not history of asthma or COPD. The history is provided by the patient. URI He complains of cough. There is no chest tightness, difficulty breathing or shortness of breath. This is a new problem. The current episode started in the past 7 days. The problem occurs constantly. The problem has been gradually worsening. The cough is productive of sputum (holland sputum). Associated symptoms include appetite change, dyspnea on exertion, headaches, malaise/fatigue, myalgias and nasal congestion. Pertinent negatives include no chest pain, ear congestion, ear pain, fever, rhinorrhea or sore throat. Exacerbated by: worse at night. His symptoms are alleviated by nothing. He reports no improvement on treatment. His symptoms are not alleviated by OTC cough suppressant and rest. There are no known risk factors for lung disease. There is no history of asthma, COPD or pneumonia. PAST MEDICAL HISTORY Diagnosis Date A-fib ([facility]) 04/2020 PAST SURGICAL HISTORY Procedure Laterality Date COLONOSCOPY FLX DX W/COLLJ SPEC WHEN PFRMD 11/27/2016 Colonoscopy LAPAROSCOPIC CHOLECYSTECTOMY 06/20/2019 Dr. Gagan Richardson PAST SURGICAL HISTORY OF finger surgery x 2 TONSILLECTOMY PRIMARY/SECONDARY <AGE 14 Tonsillectomy and adnoids VENOUS EXTREMITY UNILATERAL 10/08/2021 US neg DVT left lower leg ALLERGIES Iodinated Contrast Media MEDICATIONS sertraline (ZOLOFT) 50 mg tablet Take 1 tablet by mouth once daily. doxycycline (VIBRA-TABS) 100 mg tablet Take 1 tablet by mouth two times a day for 7 days. benzonatate (TESSALON PERLES) 100 mg capsule Take 1 capsule by mouth three times a day as needed for cough. FAMILY HISTORY Problem Relation Age of Onset Alzheimer's Disease Mother Cancer Father brain tumor ,lung removed and kidney removed COPD Brother Osteoporosis Paternal Grandfather Alzheimer's Disease Sister Social History Tobacco Use Smoking status: Never Smokeless tobacco: Never Vaping Use Vaping Use: Never used Substance Use Topics Alcohol use: Yes Comment: occasional Drug use: No Review of Systems Constitutional: Positive for appetite change, chills, fatigue and malaise/fatigue. Negative for fever. HENT: Positive for congestion. Negative for ear discharge, ear pain, rhinorrhea, sinus pressure, sinus pain and sore throat. Eyes: Negative for pain, discharge, redness and itching. Respiratory: Positive for cough. Negative for chest tightness and shortness of breath. Cardiovascular: Positive for dyspnea on exertion. Negative for chest pain. Gastrointestinal: Negative for abdominal pain, diarrhea, nausea and vomiting. Musculoskeletal: Positive for arthralgias and myalgias. Skin: Negative for color change. Neurological: Positive for headaches. Negative for dizziness and light-headedness. Objective BP 118/68 Pulse 90 Temp 37.1 C (98.7 F) Resp 16 Wt 117.9 kg (260 lb) SpO2 96% BMI 34.30kg/m Physical Exam Vitals reviewed. Constitutional: General: He is awake. He is not in acute distress. Appearance: Normal appearance. He is normal weight. He is not ill-appearing, toxic-appearing or diaphoretic. HENT: Head: Normocephalic. Right Ear: Hearing, ear canal and external ear normal. No decreased hearing noted. No laceration, drainage, swelling or tenderness. No middle ear effusion. There is no impacted cerumen. No foreign body. No mastoid tenderness. No PE tube. No hemotympanum. Tympanic membrane is erythematous and bulging. Tympanic membrane is not injected, scarred, perforated or retracted. Tympanic membrane has normalmobility. Left Ear: Hearing, tympanic membrane, ear canal and external ear normal. No decreased hearing noted. No laceration, drainage, swelling or tenderness. No middle ear effusion. There is no impacted cerumen. No foreign body. No mastoid tenderness. No PE tube. No hemotympanum. Tympanic membrane is not injected, scarred, perforated, erythematous, retracted or bulging. Tympanic membrane has normal mobility. Nose: Septal deviation and congestion present. No nasal deformity, signs of injury, laceration, nasal tenderness, mucosal edema or rhinorrhea. Right Nostril: No foreign body, epistaxis, septal hematoma or occlusion. Left Nostril: No foreign body, epistaxis, septal hematoma or occlusion. Right Turbinates: Not enlarged, swollen or pale. Left Turbinates: Not enlarged, swollen or pale. Right Sinus: Maxillary sinus tenderness and frontal sinus tenderness present. Left Sinus: Maxillary sinus tenderness and frontal sinus tenderness present. Mouth/Throat: Lips: [place]. No lesions. Mouth: Mucous membranes are moist. No oral lesions. Tongue: No lesions. Palate: No lesions. Pharynx: Oropharynx is clear. Uvula midline. Posterior oropharyngeal erythema present. No pharyngeal swelling, oropharyngeal exudate or uvula swelling. Tonsils: No tonsillar exudate or tonsillar abscesses. 1+ on the right. 1+ on the left. Eyes: General: Lids are normal. No allergic shiner or scleral icterus. Right eye: No discharge. Left eye: No discharge. Conjunctiva/sclera: Conjunctivae normal. Right eye: Right conjunctiva is not injected. No chemosis, exudate or hemorrhage. Left eye: Left conjunctiva is not injected. No chemosis, exudate or hemorrhage. Pupils: Pupils are equal, round, and reactive to light. Cardiovascular: Rate and Rhythm: Normal rate and regular rhythm. Heart sounds: Normal heart sounds, S1 normal and S2 normal. Heart sounds not distant. No murmur heard. No friction rub. No gallop. Pulmonary: Effort: Pulmonary effort is normal. No tachypnea, bradypnea, accessory muscle usage, prolonged expiration or respiratory distress. Breath sounds: Normal breath sounds. No stridor or decreased air movement. No decreased breath sounds, wheezing, rhonchi or rales. Chest: Chest wall: No tenderness. Musculoskeletal: General: Normal range of motion. Cervical back: Normal range of motion. Tenderness present. Lymphadenopathy: Head: Right side of head: No submental, submandibular, tonsillar, preauricular, posterior auricular or occipital adenopathy. Left side of head: No submental, submandibular, tonsillar, preauricular, posterior auricular or occipital adenopathy. Cervical: No cervical adenopathy. Right cervical: No superficial, deep or posterior cervical adenopathy. Left cervical: No superficial, deep or posterior cervical adenopathy. Skin: General: Skin is warm and dry. Capillary Refill: Capillary refill takes less than 2 seconds. Neurological: General: No focal deficit present. Mental Status: He is alert and oriented to person, place, and time. Mental status is at baseline. Psychiatric: Mood and Affect: Mood normal. Behavior: Behavior normal. Behavior is cooperative. Thought Content: Thought content normal. Judgment: Judgment normal. Assessment and Plan ASSESSMENT/PLAN: 1. Acute otitis media, right - ICD9: 382.9, ICD10: H66.91 (primary diagnosis) - Acute onset URI symptoms for four days with chills and body aches starting in the last few days. - LCTA, right TM bulging and erythematous, left TM WDL, pharynx erythematous, tonsils 1+ no exudate - Will begin treatment with Doxycycline - Supportive care with plenty of fluids, rest, and analgesia prn. 2. URI, acute - ICD9: 465.9, ICD10: J06.9 - Acute onset URI symptoms including productive cough, body aches, chills, and headache for 4 days. - Was seen in [facility] 2 days ago- COVID/flu/rsv negative and chest x-ray negative - No history of asthma or COPD, never smoked - LCTA, right TM bulging and erythematous, left TM WDL, pharynx erythematous, tonsils 1+ no exudate - Discussed viral etiology and rationale for treatment. - Symptomatic treatment with prn analgesia - Supportive care with fluids and rest - Start taking tessalon pearls Melisa Walpole TEACHING PROVIDER (Physician/PA/MANAGER DRUG SAFETY) NOTE OF PERSONAL INVOLVEMENT IN CARE: I have personally seen and examined the patient and performed the medical decision-making components. I have reviewed the Advanced Practice Registered Nurse (MANAGER DRUG SAFETY) Student's documentation and verified the findings in the note as written. Any additions or changes are noted in bold/italics. Signature: Vale Iyer Date: 12/23/2023 Time: 9:41 AM documented in this encounterK[facility]02-13-2024 Miscellaneous Notes* Telephone Encounter - Morena Grant - 12/21/2023 7:16 AM EST Patient given results and verbalized understanding of instructions given. Morena Grant * Telephone Encounter - Lauren Mckenzie APRN.CNP - 12/21/2023 7:13 AM EST Negative for flu, covid, rsv please notify thank you documented in this encounterKet[facility]02-12-2024 History of Present illness Narrative* Neisha Salguero RT(R) - 12/20/2023 9:30 AM EST Radiology Service Progress Note PATIENT NAME: Roberto De La Cruz DATE OF SERVICE: December 20, 2023 TIME: 9:33 AM PATIENT IDENTITY VERIFICATION COMPLETED USING TWO (2) IDENTIFIERS: Name and Date of confirmedby patient verbally. FALL SCREENING: Has the patient had 2 falls in the last year or 1 fall with injury or currently using an Ambulatory Assistive Device (Walker, Cane, Wheelchair, Crutches, etc.)? No PATIENT GENDER DATA: Male PATIENT RELEVANT IMPLANT DATA REVIEWED: Yes PATIENT PRESENTS WITH AN IMPLANTABLE OR ATTACHED RETAIL SALES ASSOCIATE SEASONAL: No RADIOLOGY DEPARTMENT: General X-ray: Exam(s) Completed: Chest X-Ray PERIPHERAL IV DATA: Not applicable SIGNED BY: RT Acacia(R) December 20, 2023 9:33 AM documented in this encounterKet[facility]02-12-2024 History of Present illness Narrative* Lauren Mckenzie APRN.NETWORK DESIGN ARCHITECT - 12/20/2023 9:27 AM EST CC: Patient presents with: Chest Congestion: cough and nasal congestion, drainage x 3 days HPI: Roberto De La Cruz is a 63 year old male who presents to the office with complaint of chest congestion, head congestion, and cough, nonproductive for a few days. Symptoms are staying the same. Associated symptoms includes cough. Denies nausea, vomiting , and diarrhea. Treatments tried include nothing so far. with no relief of symptoms. Sick contacts: flu. History of asthma, frequent episodes of bronchitis, chronic bronchitis, bronchiectasis or COPD: No Smoker: No Seasonal/environmental allergies: No The ROS is otherwise negative. The patient's pmh, medications, allergies, and past visits are reviewed. PHYSICAL EXAM: BP 124/68 Pulse 74 Temp 36.6 C (97.8 F) Resp 16 Wt 122 kg (269 lb) SpO2 96% BMI 35.49 kg/m General appearance: alert, cooperative, pleasant, in no acute distress Head: Normocephalic Eyes: EOM's intact, conjunctiva pink and moist, no icterus, sclera white, non-injected Ears: Right ear: External ear/canal- Normal, TM - clear with good landmarks. Left ear: External ear/canal- Normal, TM - clear with good landmarks Oropharynx:moist without lesions, No erythema, exudates or tonsillar hypertrophy. Heart: Negative. RRR without obvious murmur, gallop, or rubs. No ectopy. Lungs: clear to auscultation, without rales or wheeze, good air exchange PAST MEDICAL HISTORY Diagnosis Date A-fib ([facility]) 04/2020 PAST SURGICAL HISTORY Procedure Laterality Date COLONOSCOPY FLX DX W/COLLJ SPEC WHEN PFRMD 11/27/2016 Colonoscopy LAPAROSCOPIC CHOLECYSTECTOMY 06/20/2019 Dr. Gagan Richardson PAST SURGICAL HISTORY OF finger surgery x 2 TONSILLECTOMY PRIMARY/SECONDARY <AGE 14 Tonsillectomy and adnoids VENOUS EXTREMITY UNILATERAL 10/08/2021 US neg DVT left lower leg ALLERGIES Iodinated Contrast Media MEDICATIONS sertraline (ZOLOFT) 50 mg tablet Take 1 tablet by mouth once daily. FAMILY HISTORY Problem Relation Age of Onset Alzheimer's Disease Mother Cancer Father brain tumor ,lung removed and kidney removed COPD Brother Osteoporosis Paternal Grandfather Alzheimer's Disease Sister Social History Tobacco Use Smoking status: Never Smokeless tobacco: Never Vaping Use Vaping Use: Never used Substance Use Topics Alcohol use: Yes Comment: occasional Drug use: No ASSESSMENT/PLAN: 1. URI, acute - ICD9: 465.9, ICD10: J06.9 (primary diagnosis) - COVID & INFLUENZA A/B & RSV NAAT, ROUTINE 2. Acute cough - ICD9: 786.2, ICD10: R05.1 - XR CHEST 2V FRONTAL/LAT * * * * Physician Interpretation * * * * EXAMINATION: CHEST RADIOGRAPH (2 VIEW FRONTAL & LATERAL) CLINICAL HISTORY: Acute cough MQ: [id number] EXAM DATE/TIME: 12/20/2023 9:38 AM COMPARISON: Chest x-ray dated December 16, 2022 RESULT: Lines, tubes, and devices: None. Lungs and pleura: No consolidation. No lung mass. No pleural effusion. No pneumothorax. Cardiomediastinal silhouette: Normal cardiomediastinal silhouette. Bones and soft tissues: Unremarkable. IMPRESSION IMPRESSION: No acute radiographic abnormality. Photoflash Powder Mixer: KEVIN [employer]crik[employer] Date/Time: Dec 20 2023 9:39A OTC meds for symptoms.. Potential red flag symptoms discussed with the patient. Reviewed appropriate action plan to take if red flag symptoms occur. Patient agreeable to treatment plan. Lauren Mckenzie APRN.ALESHIA documented in this encounterK[facility]01-25-2024 Miscellaneous Notes* Telephone Encounter - Debra Devine LPN - 12/02/2023 3:28 PM EST Patient notified of results, verbalizes understanding of instructions. Debra Devine LPN * Telephone Encounter - Kenneth Beckett MD - 12/02/2023 2:17 PM EST Let him know xray was ok. documented in this encounterKet[facility]01-24-2024 History of Present illness Narrative* Neisha Salguero RT(R) - 12/01/2023 2:10 PM EST Radiology Service Progress Note PATIENT NAME: Roberto De La Cruz DATE OF SERVICE: December 01, 2023 TIME: 2:13 PM PATIENT IDENTITY VERIFICATION COMPLETED USING TWO (2) IDENTIFIERS: Name and Date of confirmedby patient verbally. FALL SCREENING: Has the patient had 2 falls in the last year or 1 fall with injury or currently using an Ambulatory Assistive Device (Walker, Cane, Wheelchair, Crutches, etc.)? No PATIENT GENDER DATA: Male PATIENT RELEVANT IMPLANT DATA REVIEWED: Yes RADIOLOGY DEPARTMENT: General X-ray: Exam(s) Completed: Upper Extremity X- Ray(s): Shoulder, AP / TRUE AP / AXILLARY left PERIPHERAL IV DATA: Not applicable SIGNED BY: RT Acacia(R) December 01, 2023 2:13 PM documented in this encounterKet[facility]11-21-2023 Miscellaneous Notes* Telephone Encounter - Ruben ThorntonSunshine Jolene - 09/28/2023 12:28 PM EST Pharmacy verified in [facility] Patient has been identified by name and date of : Yes Patient aware RX will be sent to pharmacy. No need to notify patient. Spouse phones for refill(s): Requested Prescriptions Pending Prescriptions Disp Refills sertraline (ZOLOFT) 50 mg tablet 30 tablet 1 Sig: Take 1 tablet by mouth once daily. Date of last office visit : 08/09/2023 Date of next office visit : Visit date not found Last 2 Encounter Wt Readings: Date: Wt: 08/09/2023 117.9 kg (260 lb) 07/18/2023 120.7 kg (266 lb) Not applicable Please advise. Sunshine Miranda Pss documented in this encounterKet[facility]09-19-2023 Miscellaneous Notes* Telephone Encounter - Apurva Ambrocio RN - 07/27/2023 12:37 PM EDT Pt called and is notified of providers results. Pt voices understanding. Apurva Ambrocio RN * Telephone Encounter - Kenneth Beckett MD - 07/26/2023 6:25 PM EDT Labs are stable. Psa is improved. documented in this encounterK[facility]09-11-2023 Miscellaneous Notes* Telephone Encounter - Debra Devine LPN - 07/19/2023 1:20 PM EDT Patient notified of results, verbalizes understanding of instructions. Debra Devine LPN * Telephone Encounter - Vale Iyer APRN.ALESHIA - 07/19/2023 12:44 PM EDT Please inform patient of negative xrays of the leg and also the finger. Continue treatment plan discussed at time of exam. Follow up with PCP for continued sx. documented in this encounterKet[facility]09-11-2023 Miscellaneous Notes* Telephone Encounter - Donya Guzman Ma - 07/19/2023 12:36 PM EDT Pt notified and voiced understanding. Donya Guzman Ma * Telephone Encounter - Lauren Mckenzie APRN.CNP - 07/19/2023 11:45 AM EDT Patient's ultrasound is negative. If patient's symptoms are persistent please have him follow-up with primary care. documented in this encounterKettering [facility]09-11-2023 History of Present illness Narrative* Neisha Salguero RT(R) - 07/19/2023 11:50 AM EDT Radiology Service Progress Note PATIENT NAME: Roberto De La Cruz DATE OF SERVICE: July 19, 2023 TIME: 11:49 AM PATIENT IDENTITY VERIFICATION COMPLETED USING TWO (2) IDENTIFIERS: Name and Date of confirmedby patient verbally. FALL SCREENING: Has the patient had 2 falls in the last year or 1 fall with injury or currently using an Ambulatory Assistive Device (Walker, Cane, Wheelchair, Crutches, etc.)? No PATIENT GENDER DATA: Male PATIENT RELEVANT IMPLANT DATA REVIEWED: Yes RADIOLOGY DEPARTMENT: General X-ray: Exam(s) Completed: Lower Extremity X- Ray(s): Tibia Fibula, Left Upper Extremity X-Ray(s): Fingers/Thumb, left index PERIPHERAL IV DATA: Not applicable SIGNED BY: RT Acacia(R) July 19, 2023 11:49 AM documented in this encounterKettering [facility]09-11-2023 History of Present illness Narrative* Steph Taveras RDMS - 07/19/2023 10:45 AM EDT Radiology Service Progress Note PATIENT NAME: Roberto De La Cruz DATE OF SERVICE: July 19, 2023 TIME: 11:29 AM PATIENT IDENTITY VERIFICATION COMPLETED USING TWO (2) IDENTIFIERS: Name and Date of confirmedby patient verbally. FALL SCREENING: Has the patient had 2 falls in the last year or 1 fall with injury or currently using an Ambulatory Assistive Device (Walker, Cane, Wheelchair, Crutches, etc.)? No PATIENT GENDER DATA: Male PATIENT RELEVANT IMPLANT DATA REVIEWED: Not Applicable RADIOLOGY DEPARTMENT: Ultrasound PERIPHERAL IV DATA: Not applicable SIGNED BY: Steph Taveras RDMS July 19, 2023 11:29 AM documented in this encounterKet[facility]09-11-2023 History of Present illness Narrative* Vale Iyer APRN.CNP - 07/19/2023 10:07 AM EDT itzbig Vale reaches out. Requests modification of order. Change placed. documented in this encounterKet[facility]09-09-2023 Miscellaneous Notes* Telephone Encounter - Jolene Nieto PA-C - 07/17/2023 11:48 AM EDT Telephone on 07/16/23 BASIC METABOLIC PNL LIPID PANEL BASIC CBC PSA/PROSTSPECAG SCRN Eh Cloud PA-C * Telephone Encounter - Tawana Dillard LPN - 07/16/2023 1:47 PM EDT See phone note in patient chart. Asking for annual labs for physical. Scheduled 08/09/23. documented in this encounterKettering [facility]08-30-2023 Instructions* Patient Instructions* Aly Antonio APRN.CNP - 07/07/2023 6:35 PM EDT ASSESSMENT/PLAN: 1. Viral syndrome - ICD9: 079.99, ICD10: B34.9 (primary diagnosis) - Discussed viral etiology and rationale for treatment. - Symptomatic treatment with prn analgesia - Supportive care with fluids and rest - Follow up in 3-5 days if symptoms persist or sooner if worsening of symptoms Discussed quarantine, social distancing otc medications discussed Push fluids -If you experience chest pain/shortness of breath go to ER - COVID & INFLUENZA A/B NAAT, ROUTINE 2. Sore throat - ICD9: 462, ICD10: J02.9 Neg, viral - STREP A MOLECULAR (POC) documented in this encounterKettering [facility]08-30-2023 History of Present illness Narrative* Aly Antonio APRN.CNP - 07/07/2023 6:05 PM EDT Subjective HPI HPI Roberto De La Cruz is a 62 year old male who presents today for CC of st, body aches, fatigue, cough, sob. This started 1 day ago. Has tried otc medication for relief. Symptoms are worsened by nothing. This feels like he felt with last covid infection. nonsmoker. .Patient presents with: Sore Throat: bodyaches and fatigue, cough x 4am yesterday PAST MEDICAL HISTORY Diagnosis Date A-fib ([facility]) 04/2020 PAST SURGICAL HISTORY Procedure Laterality Date COLONOSCOPY FLX DX W/COLLJ SPEC WHEN PFRMD 11/27/2016 Colonoscopy LAPAROSCOPIC CHOLECYSTECTOMY 06/20/2019 Dr. Gagan Richardson PAST SURGICAL HISTORY OF finger surgery x 2 TONSILLECTOMY PRIMARY/SECONDARY <AGE 14 Tonsillectomy and adnoids VENOUS EXTREMITY UNILATERAL 10/08/2021 US neg DVT left lower leg ALLERGIES Iodinated Contrast Media MEDICATIONS sertraline (ZOLOFT) 50 mg tablet Take 1 tablet by mouth once daily. FAMILY HISTORY Problem Relation Age of Onset Alzheimer's Disease Mother Cancer Father brain tumor ,lung removed and kidney removed COPD Brother Osteoporosis Paternal Grandfather Alzheimer's Disease Sister Social History Tobacco Use Smoking status: Never Smokeless tobacco: Never Substance Use Topics Alcohol use: Yes Comment: occasional Drug use: No Review of Systems Constitutional: Positive for chills and malaise/fatigue. HENT: Negative for ear pain and sinus pain. Cardiovascular: Negative for chest pain. Gastrointestinal: Negative for diarrhea and vomiting. Skin: Negative for itching and rash. Objective Blood pressure 124/78, pulse 118, temperature 36.5 C (97.7 F), resp. rate 18, weight 119.7 kg (264 lb), SpO2 98 %. Physical Exam Constitutional: General: He is not in acute distress. Appearance: He is not toxic-appearing or diaphoretic. HENT: Head: Normocephalic and atraumatic. Nose: Nose normal. Mouth/Throat: Pharynx: Uvula midline. Posterior oropharyngeal erythema present. No pharyngeal swelling, oropharyngeal exudate or uvula swelling. Eyes: General: Lids are normal. No scleral icterus. Right eye: No discharge. Left eye: No discharge. Conjunctiva/sclera: Conjunctivae normal. Pupils: Pupils are equal, round, and reactive to light. Neck: Trachea: Trachea normal. Cardiovascular: Rate and Rhythm: Normal rate and regular rhythm. Heart sounds: Normal heart sounds. Pulmonary: Effort: Pulmonary effort is normal. Breath sounds: Normal breath sounds. Musculoskeletal: Cervical back: Normal range of motion and neck supple. Lymphadenopathy: Cervical: No cervical adenopathy. Right cervical: No superficial cervical adenopathy. Left cervical: No superficial cervical adenopathy. Skin: Findings: No rash. Neurological: Mental Status: He is alert and oriented to person, place, and time. ASSESSMENT/PLAN: 1. Viral syndrome - ICD9: 079.99, ICD10: B34.9 (primary diagnosis) - Discussed viral etiology and rationale for treatment. - Symptomatic treatment with prn analgesia - Supportive care with fluids and rest - Follow up in 3-5 days if symptoms persist or sooner if worsening of symptoms Discussed quarantine, social distancing otc medications discussed Push fluids -If you experience chest pain/shortness of breath go to ER -if positive discussed online express care or calling pcp - COVID & INFLUENZA A/B NAAT, ROUTINE 2. Sore throat - ICD9: 462, ICD10: J02.9 Neg, viral - STREP A MOLECULAR (POC) Aly Antonio APRN.NETWORK DESIGN ARCHITECT documented in this encounterKettering [facility]05-30-2023 Miscellaneous Notes* Telephone Encounter - Siria Daniella ALEJANDRO - 04/06/2023 12:42 PM EDT Patient requests via [employer] refills as follows: Requested Prescriptions Pending Prescriptions Disp Refills sertraline (ZOLOFT) 50 mg tablet 30 tablet 1 Sig: Take 1 tablet by mouth once daily. SUNG: 12/16/22 NOV: None scheduled Last Refill: 01/21/23 #30 1 refill Siria Brewer LPN * Telephone Encounter - Sunshine Miranda Pss - 04/06/2023 11:06 AM EDT Pharmacy verified in [facility] Patient has been identified by name and date of : Yes Patient aware RX will be sent to pharmacy. No need to notify patient. Spouse phones for refill(s): Requested Prescriptions Pending Prescriptions Disp Refills sertraline (ZOLOFT) 50 mg tablet 30 tablet 1 Sig: Take 1 tablet by mouth once daily. Date of last office visit : 12/16/2022 Date of next office visit : Visit date not found Last 2 Encounter Wt Readings: Date: Wt: 12/28/2022 118.8 kg (262 lb) 12/16/2022 118.8 kg (262 lb) Not applicable Please advise. Sunshine Miranda Pss documented in this encounterKettering [facility]04-12-2023 History of Present illness Narrative* Edilma Glynn LPN - 02/17/2023 3:39 PM EDT Patient presents for PPD read only. Denies any problems at this time. Edilma Glynn LPN documented in this encounterKettering Health [facility] History of Present illness Narrative* Edilma lGynn LPN - 02/15/2023 10:18 AM EDT Patient presents for PPD administration. Denies any problems at this time. Tolerated injection well. Edilma Glynn LPN documented in this encounterK[facility]03-29[facility]23 Miscellaneous Notes* Telephone Encounter - Edilma Glynn LPN - 02/03/2023 8:41 AM EDT Patient scheduled for nurse visit 02/15/23 to receive PPD administration. Please place order at thistime. Edilma Glynn LPN documented in this encounterK[facility]03-16-2023 Miscellaneous Notes* Telephone Encounter - Jonathon Cote LPN - 01/21/2023 11:08 AM EDT SUNG 12/16/22 NOV no upcoming appt * Telephone Encounter - Jaclyn Lopez - 01/21/2023 9:48 AM EDT Patient has been identified by name and date of : Yes Requested Prescriptions Pending Prescriptions Disp Refills sertraline (ZOLOFT) 50 mg tablet 30 tablet 1 Sig: Take 1 tablet by mouth once daily. RX INSTRUCTIONS: Patient aware RX will be sent to pharmacy. No need to notify patient. Jaclyn Lopez documented in this encounterKet[facility]02-20-2023 History of Present illness Narrative* OTILIO Chavez - 12/28/2022 9:53 AM EST PULM FUNCTION SMARTBLOCK: Provider: Kenneth Beckett MD Assisting Tech: OTILIO Chavez Spirometry w/BD: 1 DLCO: 1 LV - Box: 1 documented in this encounterKet[facility]02-08-2023 History of Present illness Narrative* Kenneth Beckett MD - 12/16/2022 2:56 PM EST Patient presents with: Follow Up HPI: Patient presents today for office visit for follow up on depression and anxiety. Note from Shama Podlogar: Reports feeling down for a few years but just never wanted to say anything. Yesterday was his brothers' birthday. Per patient he just lost it. Per patient he was crying and irritable. Reports he has lost his mother, father and sister as well over the years and has never really dealt with it. Did go to a couple of counseling appointments in the past. reports he is often irritable at home. Has never been treated for depression or anxiety. Denies SI, HI orinsomnia Started on Sertraline 50 mg daily. Tolerating fine. No side effects. Emotionally things have been better. States it's working. Denies irritability, crying spells or feeling down. Worried about his who has a neck mass that is being biopsied. He has had issues for a while. May need la to care for his and help at home with her upcoming wrist surgery. Has some shortness of breath at times when exerting self. Has been for several months. 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 He just does not feel right. No chest pain. No palpitations. No edema. No cough or wheeze. Gets diaphoretic at times with it. MEDICATIONS: Current Outpatient Medications Medication Sig sertraline (ZOLOFT) 50 mg tablet Take 1 tablet by mouth once daily. No current facility-administered medications for this visit. ALLERGIES: ALLERGIES Allergen Reactions Iodinated Contrast * Other: See Comments Kidney failure PAST MEDICAL HISTORY Diagnosis Date A-fib (HCC) 04/2020 PAST SURGICAL HISTORY Procedure Laterality Date COLONOSCOPY FLX DX W/COLLJ SPEC WHEN PFRMD 11/27/2016 Colonoscopy LAPAROSCOPIC CHOLECYSTECTOMY 06/20/2019 Dr. Gagan Richardson PAST SURGICAL HISTORY OF finger surgery x 2 TONSILLECTOMY PRIMARY/SECONDARY <AGE 14 Tonsillectomy and adnoids VENOUS EXTREMITY UNILATERAL 10/08/2021 US neg DVT left lower leg FAMILY HISTORY Problem Relation Age of Onset Alzheimer's Disease Mother Cancer Father brain tumor ,lung removed and kidney removed COPD Brother Osteoporosis Paternal Grandfather Alzheimer's Disease Sister Social History Tobacco Use Smoking status: Never Smokeless tobacco: Never Substance Use Topics Alcohol use: Yes Comment: occasional Drug use: No Reviewed current medications, allergies, past medical history, surgical history, family history andsocial history today. REVIEW OF SYSTEMS All other reviewed and negative other than HPI. VITALS: BP 118/80 Pulse 63 Ht 188 cm (6' 2) Wt 118.8 kg (262 lb) SpO2 98% BMI 33.64 kg/m Last 4 Encounter Wt Readings: Date: Wt: 11/18/2022 118.7 kg (261 lb 9.6 oz) 10/31/2022 121.1 kg (267 lb) 08/11/2022 118.7 kg (261 lb 9.6 oz) 07/23/2022 118.3 kg (260 lb 12.8 oz) PHYSICAL EXAMINATION: General appearance: Well appearing, alert, in no acute distress, well-hydrated, well nourished. Skin: Skin color, texture, turgor normal, no suspicious rashes or lesions Head: Normocephalic, no masses, lesions, tenderness or abnormalities Eyes: Anicteric sclera. Pupils are equally round and reactive to light. Extraocular movements are intact. Lungs: Lungs clear to auscultation. No wheezing, rhonchi, rales Heart: RRR without murmur, gallop, or rubs. No ectopy Abdomen: Normal abdominal exam, Abdomen soft, non-tender. Bowel sounds normal. No masses, organomegaly Extremities: No deformities, edema, skin discoloration, clubbing or cyanosis. Good capillary refill. Musculoskeletal: No joint swelling, deformity, or tenderness Peripheral pulses: Normal Neuro: Negative. ASSESSMENT/PLAN: 1. SOB (shortness of breath) - ICD9: 786.05, ICD10: R06.02 (primary diagnosis) - see cardiology. Red flags for re-assessment reviewed with patient in detail. - pfts - ECG COMPLETE-NSR. No acute changes. - XR CHEST 2V FRONTAL/LAT - CBC + DIFF - COMP METABOLIC PANEL 2. Paroxysmal atrial fibrillation (HCC) - ICD9: 427.31, ICD10: I48.0 - TSH BLD 3. Anxiety and depression - ICD9: 300.00, 311, ICD10: F41.9, F32.A - TSH BLD Kenneth Beckett MD RTO in three months documented in this encounterK[facility]01-11-[facility]23 History of Present illness Narrative* Shama Mary APRN.NETWORK DESIGN ARCHITECT - 11/18/2022 10:23 AM EST 11/18/2022 Patient presents with: Depression SUBJECTIVE: This is a 61 year old, accompanied by , that is here today for Above Complaints. Reports feeling down for a few years but just never wanted to say anything. Yesterday was his brothers' birthday. Per patient he just lost it. Per patient he was crying and irritable. Reports he has lost his mother, father and sister as well over the years and has never really dealt withit. Did go to a couple of counseling appointments in the past. reports he is often irritable at home. Has never been treated for depression or anxiety. Denies SI, HI or insomnia ANASTASIA: 14 PHQ9: 8 PAST MEDICAL HISTORY Diagnosis Date A-fib ([facility]) 04/2020 ALLERGIES Iodinated Contrast Media MEDICATIONS No current outpatient medications on file. No current facility-administered medications for this visit. Medications and allergies reviewed by this provider. SOCIAL HISTORY Social History Tobacco Use Smoking status: Never Smokeless tobacco: Never Substance Use Topics Alcohol use: Yes Comment: occasional Drug use: No REVIEW OF SYSTEMS All other reviewed and negative other than HPI. OBJECTIVE: BP 124/80 Pulse 60 Resp 18 Wt 118.7 kg (261 lb 9.6 oz) SpO2 95% BMI 33.59 kg/m . Vital signs reviewed by this provider. APPEARANCE Well appearing, alert, in no acute distress, well-hydrated, well nourished. PSYCH: Posture and motor behavior: normal posture and motor behavior Dress, grooming, personal hygiene: normal dress and grooming Facial expression: good eye contact Speech: normal speech Mood: cheerful Coherency and relevance of thought: normal thought processes Memory: normal memory HIV SCREENING Never done SHINGRIX VACCINE(1 of 2) Never done COVID-19 VACCINE(2 - Booster for Garrett series) due on 06/11/2021 INFLUENZA(1) due on 07/09/2022 DEPRESSION ASSESSMENT Never done PROSTATE CANCER SCREENING DISCUSSION due on 05/15/2024 COLORECTAL CANCER SCREENING due on 09/29/2024 DIABETES SCREEN due on 09/08/2025 LIPID SCREEN due on 07/22/2027 DTAP,TDAP,TD(3 - Td or Tdap) due on 07/13/2029 HEPATITIS C SCREENING Addressed ASSESSMENT/PLAN: 1. Anxiety and depression - ICD9: 300.00, 311, ICD10: F41.9, F32.A - Discussed concept of neurochemical imbalance wth depression/anxiety - Option of Medication use discussed - Risks/benefits of SSRIs - Common side effects - Sleep Hygeine - advised counseling to improve management of stressors - follow up in 3 weeks - Instructed patient to contact office or [id number] after-hours promptly should condition worsen or any new symptoms appear. - Counseling Center [facility] and after hours crisis line - [facility] phone number or - SERTRALINE 50 MG TABLET - per patient he will call the counselor he saw before to set up appointment - follow-up in 4 weeks with PCP, sooner if needed Shama Mary APRN.CNP Prescription instructions reviewed with patient as applicable. Patient advised if symptoms do not improve or if symptoms worsen sooner, to contact their primary care physician. Potential red flag symptoms discussed with the patient. Reviewed appropriate action plan to take if red flag symptoms occur. Patient agreeable to treatment plan. I spent a total of 25 minutes on the date of the service which included preparing to see the patient, [id number] patient care, completing clinical documentation, obtaining and/or reviewing separately obtained history, performing a medically appropriate examination, counseling and educating the pat ient/family/caregiver, and ordering medications, tests, or procedures. documented in this encounterKet[facility]12-24-2022 History of Present illness Narrative* Mariia Carroll APRN.CNP - 10/31/2022 3:28 PM EST This note was created using Property Owl[employer]. Subjective Roberto De La Cruz is a 61 year old male. The history is provided by the patient and the spouse. No oracle security consultant was used. Eye Problem This is a new problem. The current episode started today. The problem occurs constantly. The problem has been unchanged. Pertinent negatives include no chills, fever, headaches, nausea or vomiting. Associated symptoms comments: + blood clot to left eye . He has tried nothing for the symptoms. Pt denies vomiting, sneezing, lifting weights, or straining to have BM. Review of Systems Constitutional: Negative for chills and fever. Eyes: Positive for redness. Negative for photophobia, discharge and visual disturbance. Gastrointestinal: Negative for diarrhea, nausea and vomiting. Neurological: Negative for headaches. HISTORIES PAST MEDICAL HISTORY Diagnosis Date A-fib (HCC) 04/2020 PAST SURGICAL HISTORY Procedure Laterality Date COLONOSCOPY FLX DX W/COLLJ SPEC WHEN PFRMD 11/27/2016 Colonoscopy LAPAROSCOPIC CHOLECYSTECTOMY 06/20/2019 Dr. Gagan Richardson PAST SURGICAL HISTORY OF finger surgery x 2 TONSILLECTOMY PRIMARY/SECONDARY <AGE 14 Tonsillectomy and adnoids VENOUS EXTREMITY UNILATERAL 10/08/2021 US neg DVT left lower leg FAMILY HISTORY Problem Relation Age of Onset Alzheimer's Disease Mother Cancer Father brain tumor ,lung removed and kidney removed COPD Brother Osteoporosis Paternal Grandfather Alzheimer's Disease Sister Social History Tobacco Use Smoking status: Never Smokeless tobacco: Never Substance Use Topics Alcohol use: Yes Comment: occasional Drug use: No No current outpatient medications on file prior to visit. No current facility-administered medications on file prior to visit. ALLERGIES Allergen Reactions Iodinated Contrast * Other: See Comments Kidney failure HIV SCREENING Never done SHINGRIX VACCINE(1 of 2) Never done COVID-19 VACCINE(2 - Booster for Garrett series) due on 06/11/2021 DEPRESSION ASSESSMENT Never done INFLUENZA(1) due on 07/09/2022 I have confirmed and edited as necessary, the PFSH and ROS obtained by others. Objective BP 128/76 Pulse 88 Temp 36.1 C (97 F) (Tympanic) Resp 16 Ht 188 cm (6' 2) Wt 121.1 kg (267 lb) SpO2 96% BMI 34.28 kg/m Physical Exam Vitals and nursing note reviewed. Constitutional: General: He is not in acute distress. HENT: Head: Normocephalic. Eyes: Conjunctiva/sclera: Left eye: Hemorrhage present. Neurological: Mental Status: He is alert. Psychiatric: Behavior: Behavior is cooperative. ASSESSMENT/PLAN: 1. Subconjunctival hemorrhage of left eye - ICD9: 372.72, ICD10: H11.32 -discussed etiology and will resolve on it owns - follow-up with opthalmology if starts to have vision changes, pain, or difficulty seeing -pt education along with discharge instructions given to pt -pt agreeable with plan -follow-up if symptoms don't improve in 3-5 days or get worse Mariia Carroll APRN.CNP documented in this encounterK[facility]11-01-2022 Instructions* Patient Instructions* Yennifer Worrell APRN.CNP - 09/08/2022 3:05 PM EDT Get the labwork. Start the doxycycline twice daily. Start the prednisone. If no better/worsening, let us know. documented in this encounterKettering [facility]11-01-2022 History of Present illness Narrative* Yennifer Worrell APRN.CNP - 09/08/2022 2:43 PM EDT This is a 61 year old male who presents today with: Patient presents with: Cough Headaches: 2 weeks Neck Pain: Posterior neck pain started in the last 3 days Fatigue HISTORY OF PRESENT ILLNESS: Roberto De La Cruz is a 61 year old male. Patient presents with: Cough Headaches: 2 weeks Neck Pain: Posterior neck pain started in the last 3 days Fatigue Pt presents today with complaint of not feeling well. Sore throat, coughing, and started w/ neck pain -- thinks from coughing. + fatigue. Refers symptoms started about two weeks ago. Did not do a covid test. No fevers/chills. + sore throat. No ear pain. Refers that he has some spots on the tongue. Cough is mostly non-productive. Will also get body aches. No n/v/d. Decreased appetite over the last 4 days. Rosy seltzer, nyquil, robitussin. He had covid pneumonia earlier this year. PAST MEDICAL HISTORY: PAST MEDICAL HISTORY Diagnosis Date A-fib (HCC) 04/2020 PAST SURGICAL HISTORY Procedure Laterality Date COLONOSCOPY FLX DX W/COLLJ SPEC WHEN PFRMD 11/27/2016 Colonoscopy LAPAROSCOPIC CHOLECYSTECTOMY 06/20/2019 Dr. Gagan Richardson PAST SURGICAL HISTORY OF finger surgery x 2 TONSILLECTOMY PRIMARY/SECONDARY <AGE 14 Tonsillectomy and adnoids VENOUS EXTREMITY UNILATERAL 10/08/2021 US neg DVT left lower leg ALLERGIES Iodinated Contrast Media MEDICATIONS No current outpatient medications on file. No current facility-administered medications for this visit. FAMILY HISTORY Problem Relation Age of Onset Alzheimer's Disease Mother Cancer Father brain tumor ,lung removed and kidney removed COPD Brother Osteoporosis Paternal Grandfather Alzheimer's Disease Sister Social History Tobacco Use Smoking status: Never Smokeless tobacco: Never Substance Use Topics Alcohol use: Yes Comment: occasional Drug use: No EXAM: BP 126/88 Pulse 70 Temp 36.9 C (98.4 F) Resp 18 SpO2 95% PHYSICAL EXAM: General Appearance: Well appearing, alert, in no acute distress, well-hydrated, well nourished.. Skin: Skin color, texture, turgor normal, no suspicious rashes or lesions. Head: Normocephalic, no masses, lesions, tenderness or abnormalities. Eyes: Anicteric sclera. Pupils are equally round and reactive to light. Extraocular movements are intact. . Ears: External ears normal, canals clear. Normal TMs bilaterally. Nose/Sinuses: Nares normal, septum midline, mucosa normal, no drainage or sinus tenderness. Oropharynx: Lips, mucosa, and tongue normal, teeth and gums normal, oropharynx normal. Neck: Supple, no adenopathy Lungs: Lungs clear to auscultation. No wheezing, rhonchi, rales.. Heart: RRR without murmur, gallop, or rubs. No ectopy. Extremities: No deformities, edema, skin discoloration, clubbing or cyanosis. Good capillary refill. . Neurologic: Gait normal. ASSESSMENT/PLAN: 1. Sinobronchitis - ICD9: 473.9, 490, ICD10: J32.9, J40 (primary diagnosis) - Will begin treatment with Doxycycline - The patient should also be given OTC cough and cold meds as needed for the first 5-7 days of treatment. - Supportive care with plenty of fluids, rest, and analgesia prn. - Follow up in one week if symptoms persist or worsen. - DOXYCYCLINE HYCLATE 100 MG TABLET - PREDNISONE 10 MG TABLET - CBC + DIFF - COMP METABOLIC PANEL Work note provided. Planning to return to work on . Discussed w/ patient that if he needs to take off the remainder of the week, we could go ahead and give work note. 2. Bronchitis - ICD9: 490, ICD10: J40 - DOXYCYCLINE HYCLATE 100 MG TABLET - PREDNISONE 10 MG TABLET - CBC + DIFF - COMP METABOLIC PANEL Discussed treatment plan and patient voices understanding. Patient's questions answered appropriately. Medications and potential side effects were discussed and patient voices understanding. Return to the office as scheduled or as needed for worsening/no improvement. Yennifer Worrell APRN.CNP documented in this encounterKettering [facility]11-01-2022 Miscellaneous Notes* Telephone Encounter - Paula Marshall RN - 09/08/2022 9:00 AM EDT Patient calls to report not feeling well. Fatigue with weakness mild to moderate at times. Nurse triage completed. Protocol recommends see provider within 3 days. Patient agreeable. Appointment scheduled. Care advice reviewed. Patient verbalizes understanding. Reason for Disposition [1] MILD weakness (i.e., does not interfere with ability to work, go to school, normal activities) AND [2] persists > 1 week Answer Assessment - Initial Assessment Questions 1. DESCRIPTION:I just don't feel well. Reports fatigue with weakness and all over body aches. 2. SEVERITY: - MILD - Feels weak or tired, but does not interfere with work, school or normal activities to - MODERATE - Able to stand and walk; weakness interferes with work, school, or normal activities 3. ONSET: 2 weeks ago 4. CAUSE: Patient is not certain but reports he finished medication for gout and shortly after started feeling ill. 5. MEDICINES: Prednisone finished mid August when symptoms started. 6. OTHER SYMPTOMS: Patient reports when symptoms started two weeks ago he had a cough non-productive with mild chest discomfort and sore throat. Those symptoms have resolved. Patient denies fever, SOB, vomiting, diarrhea, or bleeding. Patient continues to have fatigue, weakness, and all over body aches. Protocols used: Weakness (Generalized) and [id number] documented in this encounterKettering [facility]10-04-2022 Instructions* Patient Instructions* Becki Riggins APRN.CNP - 08/11/2022 7:01 PM EDT ASSESSMENT/PLAN: 1. Foot pain, left - ICD9: 729.5, ICD10: M79.672 - XR FOOT GENERAL 3V . My reading: negative. Radiologist RESULT: No fracture, destructive changes or periosteal reaction. Joint spaces and articular surfaces are preserved. Incidental note of bipartite pisiform bones underlying the first metatarsal head. IMPRESSION: Negative left foot. Photoflash Powder Mixer: KEVIN Transcribe Date/Time: Aug 11 2022 7:40P Dictated by : CARLINE ROBERSON MD - suspect gout flare - may take prednisone for pain and inflammation. - discussed utility of uric acid blood test - gout information printed for patient. Becki Riggins APRN.NETWORK DESIGN ARCHITECT GOUT: You have an acute joint inflammation called gout. Gout is caused by uric acid crystals forming in the joint. Often uric acid levels in the blood are also elevated. Gout occurs most commonly in men and appears to be an inherited condition. Diuretics (water pills) tend to elevate blood uric acid levels and can cause similar joint problems. The big toe, foot, ankle, and knee are the joints most often affected. Treatment includes: Rest and elevate the affected limb until the swelling and pain are better. Use a frame to keep the sheets off your leg as needed. Anti-inflammatory medicine usually brings about dramatic relief of pain , redness, and swelling within 2-3 days. Increase your fluid intake, avoid alcohol, and do not eat liver, sweetbreads, or sardines. Long-term management may require medicine to lower blood uric acid levels or stopping diuretic therapy. Please see your doctor if your condition is not better after 1-2 days of treatment, or if you have fever, skin rash, diarrhea, or other joint pains. RECOMMENDED DIET FOR PATIENTS WITH GOUT FOODS TO AVOID: Beverages: Alcoholic beverages Desserts: Rich pies and pastries. Desserts made with mincemeat Fats: Meat gravies Meat, Fish, Poultry: Avoid all, especially shellfish and red meat Seasoning: Excessive amounts of condiments Soups: Bouillon, broth consomme, all soups made with stock Sweets: Avoid in case overweight Vegetables: Asparagus, arambula, navy, and kidney beans, lentils, mushrooms, peas, spinach Miscellaneous: Yeast (cardozo's and brewers) documented in this encounterKettering [facility]10-04-2022 History of Present illness Narrative* Neisha Salguero RT(R) - 08/11/2022 7:00 PM EDT Radiology Service Progress Note PATIENT NAME: Roberto De La Cruz DATE OF SERVICE: August 11, 2022 TIME: 7:12 PM PATIENT IDENTITY VERIFICATION COMPLETED USING TWO (2) IDENTIFIERS: Name and Date of confirmedby patient verbally. FALL SCREENING: Has the patient had 2 falls in the last year or 1 fall with injury or currently using an Ambulatory Assistive Device (Walker, Cane, Wheelchair, Crutches, etc.)? No PATIENT GENDER DATA: Male PATIENT RELEVANT IMPLANT DATA REVIEWED: Yes RADIOLOGY DEPARTMENT: General X-ray: Exam(s) Completed: Lower Extremity X- Ray(s): Foot, Left and Wt. Bearing PERIPHERAL IV DATA: Not applicable SIGNED BY: RT Acacia(R) August 11, 2022 7:12 PM documented in this encounterKettering [facility]10-04-2022 History of Present illness Narrative* Becki Riggins APRN.CNP - 08/11/2022 6:48 PM EDT Images from the original note were not included. Subjective HPI Roberto De La Cruz is a 61 year old male who presents with left foot pain for the past 2 days. Hedenies any injury. Rates the pain as bad and states it has been constant since it started 2 days ago. 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 He has not taken any medication for this at home. Review of Systems Constitutional: Negative for chills and fever. Musculoskeletal: Positive for joint pain. Negative for falls. Skin: Negative for rash. BP 122/80 Pulse 66 Temp 36.8 C (98.2 F) (Tympanic) Resp 16 Wt 118.7 kg (261 lb 9.6 oz) SpO2 96% BMI 33.59 kg/m PAST MEDICAL HISTORY Diagnosis Date A-fib (HCC) 04/2020 PAST SURGICAL HISTORY Procedure Laterality Date COLONOSCOPY FLX DX W/COLLJ SPEC WHEN PFRMD 11/27/2016 Colonoscopy LAPAROSCOPIC CHOLECYSTECTOMY 06/20/2019 Dr. Gagan Richardson PAST SURGICAL HISTORY OF finger surgery x 2 TONSILLECTOMY PRIMARY/SECONDARY <AGE 14 Tonsillectomy and adnoids VENOUS EXTREMITY UNILATERAL 10/08/2021 US neg DVT left lower leg ALLERGIES Iodinated Contrast Media MEDICATIONS No prescriptions on file. FAMILY HISTORY Problem Relation Age of Onset Alzheimer's Disease Mother Cancer Father brain tumor ,lung removed and kidney removed COPD Brother Osteoporosis Paternal Grandfather Alzheimer's Disease Sister Social History Tobacco Use Smoking status: Never Smokeless tobacco: Never Substance Use Topics Alcohol use: Yes Comment: occasional Drug use: No Objective Physical Exam Musculoskeletal: Left foot: Normal range of motion and normal capillary refill. Swelling (slight) and tenderness present. No deformity or crepitus. Normal pulse. Legs: ASSESSMENT/PLAN: 1. Foot pain, left - ICD9: 729.5, ICD10: M79.672 - XR FOOT GENERAL 3V . My reading: negative. Radiologist RESULT: No fracture, destructive changes or periosteal reaction. Joint spaces and articular surfaces are preserved. Incidental note of bipartite pisiform bones underlying the first metatarsal head. IMPRESSION: Negative left foot. Photoflash Powder Mixer: KEVIN Transcribe Date/Time: Aug 11 2022 7:40P Dictated by : CARLINE ROBERSON MD - suspect gout flare - may take prednisone for pain and inflammation. - discussed utility of uric acid blood test - gout information printed for patient. Becki Riggins APRN.ALESHIA documented in this encounterKettering [facility]08-26-2022 Miscellaneous Notes* Telephone Encounter - Twaana Dillard LPN - 07/03/2022 10:51 AM EDT Notified . * Telephone Encounter - Kenneth Beckett MD - 07/03/2022 9:50 AM EDT done * Telephone Encounter - Tawana Dillard LPN - 07/02/2022 5:23 PM EDT Scheduled physical 07/23 asking for lab orders. Please review chart. [facility] this encounter[facility] History of Present illness Narrative* lAy Antonio, GORDO.NETWORK DESIGN ARCHITECT - 05/25/2022 5:16 PM EDT Images from the original note were not included. Subjective HPI HPI Roberto De La Cruz is a 61 year old male who presents today for CC of right forearm infection, started on bactrim 3 days ago, redness improving though now raise /painful. Denies fever. .Patient presents with: Follow Up: L forearm skin infection, seen wednesday,now worse PAST MEDICAL HISTORY Diagnosis Date A-fib (HCC) 04/2020 PAST SURGICAL HISTORY Procedure Laterality Date COLONOSCOPY FLX DX W/COLLJ SPEC WHEN PFRMD 11/27/2016 Colonoscopy LAPAROSCOPIC CHOLECYSTECTOMY 06/20/2019 Dr. Gagan Richardson PAST SURGICAL HISTORY OF finger surgery x 2 TONSILLECTOMY PRIMARY/SECONDARY <AGE 14 Tonsillectomy and adnoids VENOUS EXTREMITY UNILATERAL 10/08/2021 US neg DVT left lower leg ALLERGIES Iodinated Contrast Media MEDICATIONS cephALEXin (KEFLEX) 500 mg capsule Take 1 capsule by mouth four times daily for 7 days. mupirocin (BACTROBAN) 2 % ointment Apply to affected area three times daily for 10 days. sulfamethoxazole-trimethoprim (BACTRIM DS) 800-160 mg per tablet Take 1 tablet by mouth twice dailyfor 10 days. albuterol HFA (PROVENTIL HFA, VENTOLIN HFA) 90 mcg/actuation inhaler Inhale 2 Puffs as instructed every 6 hours as needed for wheezing/shortness of breath. FAMILY HISTORY Problem Relation Age of Onset Alzheimer's Disease Mother Cancer Father brain tumor ,lung removed and kidney removed COPD Brother Osteoporosis Paternal Grandfather Alzheimer's Disease Sister Social History Tobacco Use Smoking status: Never Smoker Smokeless tobacco: Never Used Substance Use Topics Alcohol use: Yes Comment: occasional Drug use: No ROS Objective Blood pressure 124/84, pulse 78, temperature 37 C (98.6 F), resp. rate 20, weight 117.6 kg (259 lb 3.2 oz), SpO2 96 %. Physical Exam Constitutional: General: He is not in acute distress. Appearance: He is not toxic-appearing or diaphoretic. HENT: Head: Normocephalic and atraumatic. Pulmonary: Effort: Pulmonary effort is normal. No accessory muscle usage or respiratory distress. Skin: Neurological: Mental Status: He is alert and oriented to person, place, and time. ASSESSMENT/PLAN: 1. Skin infection - ICD9: 686.9, ICD10: L08.9 - Begin treatment with Cephalaxin (Keflex) More raised/slight drainage today compared to 3 days ago. Erythema not as wide spread as 3 days ago. - No lymphangetic streaking, this was defined for patient to watch for and to seek medical care immediately if appears - Follow up for recheck in three days, will schedule with pcp/recheck Urgent f/u for worsening s/s. - CEPHALEXIN 500 MG CAPSULE - MUPIROCIN 2 % TOPICAL OINTMENT Agrees to plan Aly Antonio APRN.CNP documented in this encounterK[facility]03-[facility] History of Present illness Narrative* Neisha Salguero RT(R) - 01/08/2022 11:20 AM EST Radiology Service Progress Note PATIENT NAME: Roberto De La Cruz DATE OF SERVICE: January 08, 2022 TIME: 11:21 AM PATIENT IDENTITY VERIFICATION COMPLETED USING TWO (2) IDENTIFIERS: Name and Date of confirmedby patient verbally. FALL SCREENING: Has the patient had 2 falls in the last year or 1 fall with injury or currently using an Ambulatory Assistive Device (Walker, Cane, Wheelchair, Crutches, etc.)? No PATIENT GENDER DATA: Male PATIENT RELEVANT IMPLANT DATA REVIEWED: Yes RADIOLOGY DEPARTMENT: General X-ray: Exam(s) Completed: Chest X-Ray PERIPHERAL IV DATA: Not applicable SIGNED BY: RT Acacia(R) January 08, 2022 11:21 AM documented in this encounterK[facility]02-02-[facility]22 History of Present illness Narrative* Tiera Nolasco RT(R) - 12/10/2021 9:50 AM EST Radiology Service Progress Note PATIENT NAME: Roberto De La Cruz DATE OF SERVICE: December 10, 2021 TIME: 9:45 AM PATIENT IDENTITY VERIFICATION COMPLETED USING TWO (2) IDENTIFIERS: Name and Date of confirmedby patient verbally. FALL SCREENING: Has the patient had 2 falls in the last year or 1 fall with injury or currently using an Ambulatory Assistive Device (Walker, Cane, Wheelchair, Crutches, etc.)? No PATIENT GENDER DATA: Male PATIENT RELEVANT IMPLANT DATA REVIEWED: Not Applicable RADIOLOGY DEPARTMENT: General X-ray: Exam(s) Completed: Chest X-Ray PERIPHERAL IV DATA: Not applicable SIGNED BY: RT Mary Beth(R) December 10, 2021 9:45 AM documented in this encounterK[facility]01-24-2022 History of Present illness Narrative* Tiera Nolasco RT(R) - 12/01/2021 10:50 AM EST Radiology Service Progress Note PATIENT NAME: Roberto De La Cruz DATE OF SERVICE: December 01, 2021 TIME: 11:04 AM PATIENT IDENTITY VERIFICATION COMPLETED USING TWO (2) IDENTIFIERS: Name and Date of confirmedby patient verbally. FALL SCREENING: Has the patient had 2 falls in the last year or 1 fall with injury or currently using an Ambulatory Assistive Device (Walker, Cane, Wheelchair, Crutches, etc.)? No PATIENT GENDER DATA: Male PATIENT RELEVANT IMPLANT DATA REVIEWED: Not Applicable RADIOLOGY DEPARTMENT: General X-ray: Exam(s) Completed: Chest X-Ray PERIPHERAL IV DATA: Not applicable SIGNED BY: RT Mary Beth(R) December 01, 2021 11:04 AM documented in this encounterK[facility]05-26-2021 History of Present illness Narrative* Ismael Wang RT(R) - 04/02/2021 4:50 PM EDT Radiology Service Progress Note PATIENT NAME: Roberto De La Cruz DATE OF SERVICE: April 02, 2021 TIME: 4:51 PM PATIENT IDENTITY VERIFICATION COMPLETED USING TWO (2) IDENTIFIERS: Name and Date of confirmedby patient verbally. FALL SCREENING: Has the patient had 2 falls in the last year or 1 fall with injury or currently using an Ambulatory Assistive Device (Walker, Cane, Wheelchair, Crutches, etc.)? No PATIENT GENDER DATA: Male PATIENT RELEVANT IMPLANT DATA REVIEWED: Not Applicable RADIOLOGY DEPARTMENT: General X-ray: Exam(s) Completed: Lower Extremity X- Ray(s): Foot, Left and Wt. Bearing PERIPHERAL IV DATA: Not applicable SIGNED BY: RT Murali(R) April 02, 2021 4:51 PM documented in this encounterK[facility]07-25-2017 Instructions* Patient Instructions* Tatiana Nikunjrafaela - 06/01/2017 2:52 PM EDT CONSCIOUS SEDATION How to Prepare for Your Colonoscopy Using Golytely, Nulytely, Trilyte, or Colyte Preparations IMPORTANT - Please Read These Instructions at Least 2 Weeks Before Your Colonoscopy Hurt Instructions: Your bowel must be empty so that your doctor can clearly view your colon. Follow all of the instructions in this handout EXACTLY as they are written. If you do NOT follow the directions for when to start drinking the bowel preparation (see next page), your colonoscopy WILL be cancelled. Do NOT eat any solid food the ENTIRE day before your colonoscopy. Buy your bowel preparation at least 5 days before your colonoscopy. Do NOT mix the solution until the day before your colonoscopy. Designated Aoc Director Combat Operations Officer on the Day of Your Exam A responsible family member or friend MUST come with you to your colonoscopy and REMAIN in the endoscopy area until you are discharged! You are NOT ALLOWED to drive, take a taxi or bus, or leave the Endoscopy Center ALONE. If you do not have a responsible regional company flatbed truck driver (family member or friend) with you to take you home, your exam can not be done with sedation and will be cancelled. Medications Some of the medicines you take may need to be stopped or adjusted before your colonoscopy. You MUST call the doctor who ordered any of the following medicines at least 2 weeks before your colonoscopy. Blood Thinners -- such as Coumadin (warfarin), Plavix (clopidogrel), Ticlid (ticlopidine hydrochloride), Agrylin (anagrelide), Xarelto (rivaroxaban), Pradaxa (dabigatran), and Effient (Prasugrel). Insulin or diabetes pills. Please call the doctor that monitors your glucose levels. Your insulin dosage may need to be adjusted due to diet restrictions required with this bowel preparation. (Pleasebring your diabetes medications with you on the day of your procedure.) If you take aspirin, continue it and ALL other medications prescribed by your doctor. On the day ofyour colonoscopy, take your medications with a sip of water. Five (5) Days Before Your Colonoscopy Do NOT take medications that stop diarrhea-- such as Imodium , Kaopectate , or Pepto Bismol . Do NOT take fiber supplements--such as Metamucil , Citrucel , or Perdiem . Do NOT take products that contain iron--such as multi-vitamins--(the label lists what is in the products). Do NOT take vitamin E. Buy the prescription bowel preparation at your local pharmacy or drugstore. Three (3) Days Before Your Colonoscopy Do NOT eat high-fiber foods--such as popcorn, beans, seeds (flax, sunflower, quinoa), multigrain bread, nuts, salad/vegetables, or fresh and dried fruit. One (1) Day Before Your Colonoscopy Only drink clear liquids the ENTIRE DAY before your colonoscopy. Do NOT eat any solid foods. Drink at least 8 ounces of clear liquids every hour after waking up. The clear liquids you can drink include: water, apple or white grape juice; broth; coffee or tea (without milk or creamer); clear carbonatedbeverages such as puneet sherlyn or lemon-tonkawa soda; Gatorade or other sports drinks (not red); Italo-Aid or other flavored drinks (not red); plain jello or other gelatins (not red); popsicles (not red) Do NOT drink alcohol on the day before or the day of the procedure. When to Mix and Drink Your Bowel Preparation Follow the instructions on the label. After mixing, place the solution in the refrigerator for a couple of hours before drinking. You may add the flavor packet that came with the bowel preparation. DO NOT add ice, sugar or any flavorings to the solution. There are two ways your doctor may dose the bowel preparation for your colonoscopy. Follow the dosing recommendations, split dosing or single dosing, as prescribed by your doctor. Split dosing cleans the bowel better and is easier to drink than single dosing. Split dosing means you drink half of the bowel preparation the evening before the colonoscopy and half of the bowel preparation the morning of the colonoscopy. Single dosing means you drink all of the bowel preparation on a single day Morning Appointment (Before 12 noon) Split Dosing Step 1: Start drinking the bowel preparation at 6 PM the evening before your colonoscopy. Drink an 8 oz glass of bowel preparation every 10 minutes for a total of 8 glasses. You may continue to drink clear liquids until bedtime. Step 2: The day of the colonoscopy (4 hours before your exam). Drink an 8 oz glass of bowel preparation every 10 minutes for a total of 8 glasses. You may continue to drink clear liquids up to 2 hours before your exam. If you take aspirin, take it and ALL other prescribed medicines with a sip of water on the day of your colonoscopy. OR Single Dosing, Evening Before Colonoscopy Start drinking the bowel preparation at 6 PM the evening before your colonoscopy. Drink an 8 oz glass of bowel preparation every 10 minutes. You must finish drinking the solution by 9 PM. You may continue to drink clear liquids up to 2 hours before your exam. If you take aspirin, take it and ALL other prescribed medicines with a sip of water on the day of your colonoscopy. Afternoon Appointment (After 12 noon) Single Dosing, Morning of Colonoscopy Start drinking the bowel preparation at 6 AM the day of your colonoscopy. Drink an 8 oz glass of bowel preparation every 10 minutes. You must finish drinking the solution by 9 AM. You may continue to drink clear liquids up to 2 hours before your exam. If you take aspirin, take it and ALL other prescribed medicines with a sip of water on the day of your colonoscopy. Contact Information If you are unable to keep your appointment or have any questions about the instructions, please call the facility where the procedure is being performed. Call between the hours of 8:00 AM and 5:00 PM. If you are calling after 5:00 PM, please call Nurse healthcare administration internship at [phone]. COLONOSCOPY PROCEDURE OVERVIEW Please read prior to the procedure What is a Colonoscopy? A colonoscopy is an outpatient procedure in which the inside of the large intestine (colon and rectum) is examined. A colonoscopy is commonly used to evaluate gastrointestinal symptoms, such as rectal and intestinal bleeding, abdominal pain, or changes in bowel habits. Colonoscopies are also performed in individuals without symptoms to check for colorectal polyps or cancer. A screening colonoscopy is recommended for anyone 50 years of age and older, and for anyone with parents, siblings or children with a history of colorectal cancer or polyps. What happens before a colonoscopy? To have a successful colonoscopy, your bowel must be empty so that your physician can clearly view the colon. To do this, it is very important to read and follow all of the instructions given to you at least 2 weeks BEFORE your exam. If your bowel is not empty, your colonoscopy will not be successful and may have to be repeated. If you feel nauseated or vomit while taking the bowel preparation, wait 30 minutes before drinking more fluid and start with small sips of solution. Some activity (such as walking) or a few soda crackers may help decrease the nausea you are feeling. If the nausea persists, please contact nurse authorization manager at [phone]. You may experience skin irritation around the anus due to the passage of liquid stools. To prevent and treat skin irritation, you should: Apply Vaseline or Desitin ointment to the skin around the anus before drinking the bowel preparation medications. These products can be purchased at any drug store. Wipe the skin after each bowel movement with disposable wet wipes instead of toilet paper. Theseare found in the toilet paper area of the store. Sit in a bathtub filled with warm water for 10 to 15 minutes after you finish passing a stool; after soaking, blot the skin dry with a soft cloth, apply Vaseline or Desitin ointment to the anal area, and place a cotton ball just outside your anus to a bsorb leaking fluid. What happens during a colonoscopy? During a colonoscopy, an experienced physician uses a colonoscope (a long, flexible instrument about 1/2 inch in diameter) to view the lining of the colon. The colonoscope is inserted into the rectumand advanced through the large intestine. If necessary during a colonoscopy, small amounts of tissue can be removed for analysis (a biopsy) and polyps can be identified and entirely removed. In many cases, a colonoscopy allows accurate diagnosis and treatment of colorectal problems without the needfor a major operation. You are asked to wear a hospital gown and an IV will be started. You are given a pain reliever and a sedative intravenously (in your vein). You will feel relaxed and somewhat drowsy. You will lie on your left side, with your knees drawn up towards your chest. A small amount of air is used to expand the colon so the physician can see the colon rogers. You may feelmild cramping during the procedure. Cramping can be reduced by taking slow, deep breaths. The colonoscope is slowly withdrawn while the lining of your bowel is carefully examined. The procedure lasts from 30 minutes to 1 hour. What happens after a colonoscopy? You will stay in a recovery room for observation until you are ready for discharge. You may feel some cramping or a sensation of having gas, but this quickly passes. If sedation has been given, a responsible regional company flatbed truck driver (a family member or friend) must drive you home. Avoid alcohol, driving, and operating machinery for 24 hours following the procedure. Unless otherwise instructed, you may immediately return to your normal diet. We recommend you wait until the day after your procedure to resume normal activities. If polyps were removed or a biopsy was taken, the physician performing your colonoscopy will tell you when it is safe to resume taking your blood thinners. If a biopsy was taken or a polyp was removed, you may notice a little amount of rectal bleeding for1 to 2 days after the procedure. If you have a large amount of rectal bleeding, high or persistent fevers, or severe abdominal pain within the next 2 weeks, please go to your local emergency room andcall the physician who performed your exam. [facility] Diagnosis Skin infection- Primary Unspecified local infection of skin and subcutaneous tissue documented in this encounter [facility]* Diagnosis Well adult exam- Primary Routine general medical examination at a health care facility [facility] Diagnosis Foot pain, left- Primary Pain in limb [facility]* Diagnosis Sinobronchitis- Primary Unspecified sinusitis (chronic) Bronchitis Bronchitis, not specified as acute or chronic documented in this [facility]* Diagnosis Subconjunctival hemorrhage of left eye- Primary [facility]* Diagnosis Anxiety and depression- Primary Dysthymic disorder documented in this encounter [facility]* Diagnosis SOB (shortness of breath)- Primary Shortness of breath Paroxysmal atrial fibrillation (HCC) Atrial fibrillation Anxiety and depression Dysthymic disorder [facility]* Diagnosis Screening for colon cancer- Primary Special screening for malignant neoplasms, colon [facility]* Diagnosis SOB (shortness of breath) Shortness of breath [facility]* Diagnosis Anxiety and depression Dysthymic disorder documented [facility]* Diagnosis Screening-pulmonary TB- Primary Screening examination for pulmonary tuberculosis [facility] Diagnosis Screening-pulmonary TB- Primary Screening examination for pulmonary tuberculosis [facility]* Diagnosis Screening-pulmonary TB- Primary Screening examination for pulmonary tuberculosis [facility]* Diagnosis Viral syndrome- Primary Unspecified viral infection, in conditions classified elsewhere and of unspecified site Sore throat Acute pharyngitis documented in this encounter [facility]* Diagnosis Leg pain, left- Primary Pain in limb [facility] Diagnosis Paroxysmal atrial fibrillation (HCC)- Primary Atrial fibrillation Anxiety and depression Dysthymic disorder Screening for prostate cancer Special screening for malignant neoplasm of prostate Hyperlipidemia, mixed Mixed hyperlipidemia Hypertriglyceridemia Pure hyperglyceridemia documented in this encounter [facility]* Diagnosis Leg pain, left Pain in limb [facility]* Diagnosis Anxiety and depression Dysthymic disorder [facility] Diagnosis URI, acute- Primary Acute upper respiratory infections of unspecified site Acute cough [facility] Diagnosis Acute otitis media, right- Primary Unspecified otitis media URI, acute Acute upper respiratory infections of unspecified site [facility] Diagnosis Bronchitis- Primary Bronchitis, not specified as acute or chronic Paroxysmal atrial fibrillation (HCC) Atrial fibrillation Hyperlipidemia, mixed Mixed hyperlipidemia Hypertriglyceridemia Pure hyperglyceridemia Recurrent cold sores Herpes simplex without mention of complication [facility] Diagnosis Anxiety and depression Dysthymic disorder [facility] Diagnosis Hyperlipidemia, mixed- Primary Mixed hyperlipidemia [facility] Diagnosis Acute cough- Primary Rhinosinusitis Unspecified sinusitis (chronic) Acute cough [facility]* Diagnosis Well adult exam- Primary Routine general medical examination at a [facility] History of colonic polyps Personal history of colonic polyps Acute cough documented in [facility]* Diagnosis Well adult exam- Primary Routine general medical examination at a [facility] History of colonic polyps Personal history of colonic polyps Bronchitis Bronchitis, not specified as acute or chronic [facility] Diagnosis Well adult exam- Primary Routine general medical examination at a [facility] facility History of colonic polyps Personal history of colonic polyps Acute cough documented in this [facility]* Diagnosis Well adult exam- Primary Routine general medical examination at a [facility] facility History of colonic polyps Personal history of colonic polyps Acute pain of left shoulder documented in this encounter [facility]* Diagnosis Well adult exam- Primary Routine general medical examination at a health care facility History of colonic polyps Personal history of colonic polyps Left leg swelling Swelling of limb Finger pain, left Pain in limb [facility] Diagnosis Well adult exam- Primary Routine general medical examination at a health care facility History of colonic polyps Personal history of colonic polyps SOB (shortness of breath) Shortness of breath documented in this [facility]* Diagnosis Well adult exam- Primary Routine general medical examination at a health care facility History of colonic polyps Personal history of colonic polyps Foot pain, left Pain in limb [facility]* Diagnosis Well adult exam- Primary Routine general medical examination at a [facility] History of colonic polyps Personal history of colonic polyps Cough Pneumonia due to COVID-19 virus [facility]* Diagnosis Well adult exam- Primary Routine general medical examination at a [facility] History of colonic polyps Personal history of colonic polyps SOB (shortness of breath) Shortness of breath [facility]* Diagnosis Well adult exam- Primary Routine general medical examination at a [facility] facility History of colonic polyps Personal history of colonic polyps COVID-19 [facility] Diagnosis Well adult exam- Primary Routine general medical examination at a [facility] History of colonic polyps Personal history of colonic polyps Foot pain, left Pain in limb [facility] Diagnosis Carpal tunnel syndrome of left wrist- Primary Bilateral wrist pain DRUJ (distal radioulnar joint) post-traumatic arthritis, left DRUJ (distal radioulnar joint) post-traumatic arthritis, right Carpal tunnel syndrome on right Carpal tunnel syndrome Bilateral wrist pain documented in this encounter [facility] note* Diagnosis Acute bilateral low back pain without sciatica- Primary [facility] Diagnosis Well adult exam- Primary Routine general medical examination at a [facility] History of colonic polyps Personal history of colonic polyps Anxiety and depression Dysthymic disorder [facility] Diagnosis S/P carpal tunnel release- Primary Other postprocedural status documented in this encounter [facility] note* Diagnosis Carpal tunnel syndrome of left wrist- Primary S/P endoscopic carpal tunnel release Other postprocedural status DRUJ (distal radioulnar joint) post-traumatic arthritis, left documented in this encounter [facility] note* Diagnosis Bursitis of other bursa of right knee- Primary documented in this encounter [facility] Work Phone: Evaluation note* Diagnosis Well adult exam- Primary Routine general medical examination at a [facility] History of colonic polyps Personal history of colonic polyps Foot pain, left- Primary Pain in limb Acute maxillary sinusitis, recurrence not specified [facility] Diagnosis Well adult exam- Primary Routine general medical examination at a health care facility History of colonic polyps Personal history of colonic polyps Foot pain, left Pain in limb [facility] Diagnosis Well adult exam- Primary Routine general medical examination at a health care facility History of colonic polyps Personal history of colonic polyps Tailor's bunion of left foot- Primary Foot pain, left Pain in limb Callus of foot Corns and callosities [facility] Diagnosis Well adult exam- Primary Routine general medical examination at a health care facility History of colonic polyps Personal history of colonic polyps Acute maxillary sinusitis, recurrence not specified- Primary [facility] Diagnosis Well adult exam- Primary Routine general medical examination at a [facility] History of colonic polyps Personal history of colonic polyps Anxiety and depression Dysthymic disorder [facility] Diagnosis Well adult exam- Primary Routine general medical examination at a [facility] History of colonic polyps Personal history of colonic polyps Wellness examination- Primary Anxiety and depression Dysthymic disorder Hyperlipidemia, mixed Mixed hyperlipidemia Screening for colon cancer Special screening for malignant neoplasms, colon [facility] Diagnosis Well adult exam- Primary Routine general medical examination at a [facility] History of colonic polyps Personal history of colonic polyps Paroxysmal atrial fibrillation (HCC)- Primary Atrial fibrillation Dizziness and giddiness [facility] Additional Instructions Take the metoprolol and Eliquis as you had previously done, 50 mg metoprolol twice a day by mouth and the Eliquis 5 mg twice a day by mouth. Return to the emergency department with elevated heart rate above 120 bpm consistently. Call cardiology, Dr. Mcneil tomorrow for an appointment. Return to the emergency department with new or worsening symptoms including heart palpitations, syncope, and/or chest pain.[facility] Work Phone: Reason for referral (narrative)* Diagnostic Procedure Only (Urgent) - Closed Specialty Diagnoses / Procedures Referred By Shanelle reid Referred To Contact XR IMAGING Diagnoses Foot pain, left Procedures XR FOOT GENERAL 3V AP/LAT/OBL LEFT RADEX FOOT COMPLETE MINIMUM 3 VIEWS Becki Riggins APRN.NETWORK DESIGN ARCHITECT [address] [place] [address] Xr Imaging Referral ID Status Reason Start Date Expiration Date V isits Requested Visits Authorized [id number] Closed Auto-Generate d Referral 08/11/2022 09/10/2023 1 1 [facility] for referral (narrative)* Diagnostic Procedure Only (Urgent) - Closed Specialty Diagnoses / Procedures Referred By Contac t Referred To Contact US IMAGING Diagnoses Leg pain, left Procedures US DVT LOWER LEFT DUP-SCAN XTR VEINS UNILATERAL/LIMITED STUDY Vale Iyer APRN.NETWORK DESIGN ARCHITECT [address] [place] [address] [place] [address] Referral ID Status Reason Start Date Expiration Date V isits Requested Visits Authorized [id number] Closed Auto-Generate d Referral 07/19/2023 08/17/2024 1 1 [facility] for referral (narrative)* Diagnostic Procedure Only (Urgent) - Closed Specialty Diagnoses / Procedures Referred By Contac t Referred To Contact US IMAGING Diagnoses Leg pain, left Procedures US DVT LOWER LEFT DUP-SCAN XTR VEINS UNILATERAL/LIMITED STUDY Vale Iyer APRN.NETWORK DESIGN ARCHITECT [address] [place] [address] [place] [address] Referral ID Status Reason Start Date Expiration Date V isits Requested Visits Authorized [id number] Closed Auto-Generate d Referral 07/19/2023 08/17/2024 1 1 [facility] for referral (narrative)* Diagnostic Procedure Only (Routine) - Closed Specialty Diagnoses / Procedures Referred By Contac t Referred To Contact XR IMAGING Diagnoses Acute pain of left shoulder Procedures XR SHOULDER GENERAL 3V OR MORE AP/TRUE AP/OTHER LEFT RADEX SHOULDER COMPLETE MINIMUM 2 VIEWS Kenneth Beckett MD [address] [place] [address] [place] [address] Referral ID Status Reason Start Date Expiration Date V isits Requested Visits Authorized [id number] Closed Auto-Generate d Referral 12/01/2023 12/30/2024 1 1 [facility] for referral (narrative)* Diagnostic Procedure Only (Urgent) - Closed Specialty Diagnoses / Procedures Referred By Contac t Referred To Contact XR IMAGING Diagnoses Finger pain, left Procedures XR DIGIT GENERAL 3V FRONTAL/LAT/OBL LEFT RADEX FINGR MINIMUM 2 VIEWS Pam Verdugo PA-C [address] [place] [address] [place] [address] Referral ID Status Reason Start Date Expiration Date V isits Requested Visits Authorized [id number] Closed Auto-Generate d Referral 07/18/2023 08/16/2024 1 1 * Diagnostic Procedure Only (Urgent) - Closed Specialty Diagnoses / Procedures Referred By Contac t Referred To Contact XR IMAGING Diagnoses Left leg swelling Procedures XR TIBIA FIBULA 2V AP/LAT LEFT RADIOLOGIC EXAMINATION TIBIA & FIBULA 2 VIEWS Pam Verdugo PA-C [address] [place] [address] [place] [address] Referral ID Status Reason Start Date Expiration Date V isits Requested Visits Authorized [id number] Closed Auto-Generate d Referral 07/18/2023 08/16/2024 1 1 [facility] for referral (narrative)* Diagnostic Procedure Only (Urgent) - Closed Specialty Diagnoses / Procedures Referred By Contac t Referred To Contact XR IMAGING Diagnoses Foot pain, left Procedures XR FOOT GENERAL 3V AP/LAT/OBL LEFT RADEX FOOT COMPLETE MINIMUM 3 VIEWS Becki Riggins, GORDO.NETWORK DESIGN ARCHITECT [address] [place] [address] [place] [address] Referral ID Status Reason Start Date Expiration Date V isits Requested Visits Authorized [id number] Closed Auto-Generate d Referral 08/11/2022 09/10/2023 1 1 [facility] for referral (narrative)No reason for referral information [facility] Work Phone: Reason for visit Narrative* Diagnostic Procedure Only (Routine) - Closed Specialty Diagnoses / Procedures Referred By Contac t Referred To Contact XR IMAGING Diagnoses Acute pain of left shoulder Procedures XR SHOULDER GENERAL 3V OR MORE AP/TRUE AP/OTHER LEFT RADEX SHOULDER COMPLETE MINIMUM 2 VIEWS Kenneth Beckett MD [address] [place] [address] [place] [address] Referral ID Status Reason Start Date Expiration Date V isits Requested Visits Authorized [id number] Closed Auto-Generate d Referral 12/01/2023 12/30/2024 1 1 [facility] for visit Narrative* Diagnostic Procedure Only (Urgent) - Closed Specialty Diagnoses / Procedures Referred By Contac t Referred To Contact XR IMAGING Diagnoses Finger pain, left Procedures XR DIGIT GENERAL 3V FRONTAL/LAT/OBL LEFT RADEX FINGR MINIMUM 2 VIEWS Pam Verdugo PA-C [address] [place] [address] [place] [address] Referral ID Status Reason Start Date Expiration Date V isits Requested Visits Authorized [id number] Closed Auto-Generate d Referral 07/18/2023 08/16/2024 1 1 [facility] for visit Narrative* Diagnostic Procedure Only (Urgent) - Closed Specialty Diagnoses / Procedures Referred By Contac t Referred To Contact XR IMAGING Diagnoses Foot pain, left Procedures XR FOOT GENERAL 3V AP/LAT/OBL LEFT RADEX FOOT COMPLETE MINIMUM 3 VIEWS Becki Riggins APRN.CNP [address] [place] [address] [place] [address] Referral ID Status Reason Start Date Expiration Date V isits Requested Visits Authorized [id number] Closed Auto-Generate d Referral 08/11/2022 09/10/2023 1 1 [facility] for visit Narrative* Auth/Cert (Routine) Specialty Diagnoses / Procedures Referred By Shanelle reid Referred To Contact Diagnoses Pain in right wrist Pain in left wrist Carpal tunnel syndrome, left upper limb Post-traumatic osteoarthritis, left wrist Post-traumatic osteoarthritis, right wrist Carpal tunnel syndrome, right upper limb Procedures CT NDSC WRST SURG W/RLS TRANSVRS CARPL LIGM CT ARTHROCENTESIS ASPIR&/INJ INTERM JT/BURS W/O US ENDOSCOPIC LEFT CARPAL TUNNEL RELEASE, LEFT ULNOCARPAL JOINT INJECTION ARTHROCENTESIS ASPIRATION AND/OR INJECTION INTERMEDIATE JOINT OR BURSA Edinson Alanis MD [address] [facility] [address] [place] [address] Phone: tel: fax: Referral ID Status Reason Start Date Expiration Date Visits Re quested Visits Authorized [id number] 09/29/2024 1 1 [facility] for visit Narrative* Diagnostic Procedure Only (Routine) - Closed Specialty Diagnoses / Procedures Referred By Shanelle reid Referred To Contact XR IMAGING Diagnoses Foot pain, left Procedures XR FOOT GENERAL 3V AP/LAT/OBL LEFT RADEX FOOT COMPLETE MINIMUM 3 VIEWS Hanh Sharma, MANAGER DRUG SAFETY.NETWORK DESIGN ARCHITECT [address] [place] [address] Phone: tel: fax: [place] [address] Referral ID Status Reason Start Date Expiration Date V isits Requested Visits Authorized [id number] Closed Auto-Generate d Referral 01/22/2025 02/21/2026 1 1 [facility] Summary Purpose Family History No Family History Records Found Relationship Condition Age at Onset Recorded Date/T charles mother Alzheimer's disease Unknown father Neoplasm of brain Unknown Status post lobectomy of lung Unknown Status post nephrectomy Unknown Malignant neoplasm Unknown brother Chronic obstructive pulmonary disease Unk nown sister Alzheimer's disease Unknown Advance Directives No Advanced Directives Records FoundDocuments on File Type Date 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 No April 30, 2025 4:03pm Advance Directives No December 12:48pm Reason for Referral Specialty Diagnoses / Procedures Referred By Contac t Referred To Contact Cardiology Diagnoses SOB (shortness of breath) Procedures [place] [address] [place] [address] Referral ID Status Reason Start Date Expiration Date Visits Requested Visits Authorized [id number] Ref Not Required PCP Requested Referral 12/16/2022 12/16/2023 1 1 Specialty Diagnoses / Procedures Referred By Contac t Referred To Contact [facility] Diagnoses SOB (shortness of breath) Procedures LUNG DIFFUSION CAPACITY (DLCO) DIFFUSING CAPACITY Kenneth Beckett MD [address] [place] [address] [address] [address] Referral ID Status Reason Start Date Expiration Date Visits Requested Visits Authorized [id number] Authorized Auto-Generat ed Referral 12/16/2022 01/15/2024 1 1 Specialty Diagnoses / Procedures Referred By Contac t Referred To Contact [facility] Diagnoses SOB (shortness of breath) Procedures [place] [address] [place] [address] [address] [address] Referral ID Status Reason Start Date Expiration Date Visits Requested Visits Authorized [id number] Pending Review Auto-Generat ed Referral 12/16/2022 01/15/2024 1 1 Specialty Diagnoses / Procedures Referred By Contac t Referred To Contact [facility] Diagnoses SOB (shortness of breath) Procedures SPIROMETRY - BASELINE AND POST DILATOR BRNCDILAT RSPSE SPMTRY PRE&POST-BRNCDILAT ADMN Kenneth Beckett MD [address] [place] [address] [facility] [place] [address] [address] Referral ID Status Reason Start Date Expiration Date Visits Requested Visits Authorized [id number] Authorized Auto-Generat ed Referral 12/16/2022 01/15/2024 1 1 Specialty Diagnoses / Procedures Referred By Contac t Referred [facility] Diagnoses SOB (shortness of breath) Procedures ECG COMPLETE ECG ROUTINE ECG W/LEAST 12 LDS W/I&R Kenneth Beckett MD [address] [place] [address] [facility] [address] [place] [address] Referral ID Status Reason Start Date Expiration Date V isits Requested Visits Authorized [id number] Closed Auto-Generate d Referral 12/16/2022 12/16/2023 1 1 Health Concerns Infection Onset Date Last Indicated Resolved Time COVID-19 Rule-Out 10/09/2020 10/09/2020 10/10/2020 7:27 PM EST COVID-19 Confirmed 11/24/2021 11/24/2021 8:51 PM EST COVID-19 Rule-Out 11/25/2021 11/24/2021 11/25/2021 2:36 PM EST Infection Onset Date Last Indicated Resolved Time COVID-19 Rule-Out 12/20/2023 12/20/2023 Medications Administered Section Administered Medications Medication Order MAR Action Action Date Dose Rate Site tuberculin skin test (TST-PPD), purified protein derivative, intradermal Intradermal Given 02/15/2023 10:12 EDT 0.1 mL Right ar m Chief Complaint and Reason for Visit Chief Complaint Admit Date 1 Y January 15, 2025 2:2 8pm AFIB April 30, 2025 3:04 pm Reason for Visit Admit Date Paroxysmal atrial fibrillation January 2:28pm Chief Complaint Admit Date 1 Y January 15, 2025 2:2 8pm AFIB April 30, 2025 3:04 pm S/P [facility] 04/30May 02, 2025 10:4 5am Additional Source Comments (unrecognized sect ion and content) No Status Records FoundNo Status Records FoundNo Status Records FoundNo Status Records FoundNo Status Records FoundNo Status Records FoundNo Status Records FoundNo Status Records Found INFORMATION SOURCE (unrecogn ized section and content) DATE CREATED AUTHOR 06/19/2019 [facility] DATE CREATED AUTHOR AUTHOR'S ORGANIZ ATION 06/09/2021 [facility] DATE CREATED AUTHOR AUTHOR'S ORGANIZ ATION 09/07/2024 [facility] DATE CREATED AUTHOR AUTHOR'S ORGANIZ ATION 12/02/2024 [facility] DATE CREATED AUTHOR AUTHOR'S ORGANIZ ATION 12/27/2024 [facility] DATE CREATED AUTHOR AUTHOR'S ORGANIZ ATION 12/31/2024 [facility] DATE CREATED AUTHOR AUTHOR'S ORGANIZ ATION 05/01/2025 [facility] DATE CREATED AUTHOR AUTHOR'S ORGANIZ ATION 05/03/2025 [facility] Source Comments (unrecognize d section and content) In the event this informatio n is protected by the Federal Confidentiality of Alcohol and Drug Abuse Patient Records regulations: The Federal rules restrict any use of the information to criminally investigate or prosecute any alcohol or drug abuse patient.[facility] the event this information is protected by the Federal Confidentiality of Alcohol and Drug Abuse Patient Records regulations: The Federal rules restrict any use of the information to criminally investigate or prosecute any alcohol or drug abuse patient.[facility] the event this information is protected by the Federal Confidentiality of Alcohol and Drug Abuse Patient Records regulations: The Federal rules restrict any use of the information to criminally investigate or prosecute any alcohol or drug abuse patient.[facility] the event this information is protected by the Federal Confidentiality of Alcohol and Drug Abuse Patient Records regulations: The Federal rules restrict any use of the information to criminally investigate or prosecute any alcohol or drug abuse patient.[facility] the event this information is protected by the Federal Confidentiality of Alcohol and Drug Abuse Patient Records regulations: The Federal rules restrict any use of the information to criminally investigate or prosecute any alcohol or drug abuse patient.[facility] Center[facility] the event this information is protected by the Federal Confidentiality of Alcohol and Drug Abuse Patient Records regulations: The Federal rules restrict any use of the information to criminally investigate or prosecute any alcohol or drug abuse patient.[facility] CenterIn the event this information is protected by the Federal Confidentiality of Alcohol and Drug Abuse Patient Records regulations: The Federal rules restrict any use of the information to criminally investigate or prosecute any alcohol or drug abuse patient.[facility] Center[facility] the event this information is protected by the Federal Confidentiality of Alcohol and Drug Abuse Patient Records regulations: The Federal rules restrict any use of the information to criminally investigate or prosecute any alcohol or drug abuse patient.[facility] Center[facility] the event this information is protected by the Federal Confidentiality of Alcohol and Drug Abuse Patient Records regulations: The Federal rules restrict any use of the information to criminally investigate or prosecute any alcohol or drug abuse patient.[facility] CenterIn the event this information is protected by the Federal Confidentiality of Alcohol and Drug Abuse Patient Records regulations: The Federal rules restrict any use of the information to criminally investigate or prosecute any alcohol or drug abuse patient.[facility] CenterIn the event this information is protected by the Federal Confidentiality of Alcohol and Drug Abuse Patient Records regulations: The Federal rules restrict any use of the information to criminally investigate or prosecute any alcohol or drug abuse patient.[facility] CenterIn the event this information is protected by the Federal Confidentiality of Alcohol and Drug Abuse Patient Records regulations: The Federal rules restrict any use of the information to criminally investigate or prosecute any alcohol or drug abuse patient.[facility] CenterIn the event this information is protected by the Federal Confidentiality of Alcohol and Drug Abuse Patient Records regulations: The Federal rules restrict any use of the information to criminally investigate or prosecute any alcohol or drug abuse patient.[facility] CenterIn the event this information is protected by the Federal Confidentiality of Alcohol and Drug Abuse Patient Records regulations: The Federal rules restrict any use of the information to criminally investigate or prosecute any alcohol or drug abuse patient.[facility] CenterIn the event this information is protected by the Federal Confidentiality of Alcohol and Drug Abuse Patient Records regulations: The Federal rules restrict any use of the information to criminally investigate or prosecute any alcohol or drug abuse patient.[facility] CenterIn the event this information is protected by the Federal Confidentiality of Alcohol and Drug Abuse Patient Records regulations: The Federal rules restrict any use of the information to criminally investigate or prosecute any alcohol or drug abuse patient.[facility] CenterIn the event this information is protected by the Federal Confidentiality of Alcohol and Drug Abuse Patient Records regulations: The Federal rules restrict any use of the information to criminally investigate or prosecute any alcohol or drug abuse patient.[facility] CenterIn the event this information is protected by the Federal Confidentiality of Alcohol and Drug Abuse Patient Records regulations: The Federal rules restrict any use of the information to criminally investigate or prosecute any alcohol or drug abuse patient.[facility] CenterIn the event this information is protected by the Federal Confidentiality of Alcohol and Drug Abuse Patient Records regulations: The Federal rules restrict any use of the information to criminally investigate or prosecute any alcohol or drug abuse patient.[facility] CenterIn the event this information is protected by the Federal Confidentiality of Alcohol and Drug Abuse Patient Records regulations: The Federal rules restrict any use of the information to criminally investigate or prosecute any alcohol or drug abuse patient.[facility] CenterIn the event this information is protected by the Federal Confidentiality of Alcohol and Drug Abuse Patient Records regulations: The Federal rules restrict any use of the information to criminally investigate or prosecute any alcohol or drug abuse patient.[facility] CenterIn the event this information is protected by the Federal Confidentiality of Alcohol and Drug Abuse Patient Records regulations: The Federal rules restrict any use of the information to criminally investigate or prosecute any alcohol or drug abuse patient.[facility] CenterIn the event this information is protected by the Federal Confidentiality of Alcohol and Drug Abuse Patient Records regulations: The Federal rules restrict any use of the information to criminally investigate or prosecute any alcohol or drug abuse patient.[facility] CenterIn the event this information is protected by the Federal Confidentiality of Alcohol and Drug Abuse Patient Records regulations: The Federal rules restrict any use of the information to criminally investigate or prosecute any alcohol or drug abuse patient.[facility] CenterIn the event this information is protected by the Federal Confidentiality of Alcohol and Drug Abuse Patient Records regulations: The Federal rules restrict any use of the information to criminally investigate or prosecute any alcohol or drug abuse patient.[facility] CenterIn the event this information is protected by the Federal Confidentiality of Alcohol and Drug Abuse Patient Records regulations: The Federal rules restrict any use of the information to criminally investigate or prosecute any alcohol or drug abuse patient.[facility] CenterIn the event this information is protected by the Federal Confidentiality of Alcohol and Drug Abuse Patient Records regulations: The Federal rules restrict any use of the information to criminally investigate or prosecute any alcohol or drug abuse patient.[facility] CenterIn the event this information is protected by the Federal Confidentiality of Alcohol and Drug Abuse Patient Records regulations: The Federal rules restrict any use of the information to criminally investigate or prosecute any alcohol or drug abuse patient.[facility] CenterIn the event this information is protected by the Federal Confidentiality of Alcohol and Drug Abuse Patient Records regulations: The Federal rules restrict any use of the information to criminally investigate or prosecute any alcohol or drug abuse patient.[facility] CenterIn the event this information is protected by the Federal Confidentiality of Alcohol and Drug Abuse Patient Records regulations: The Federal rules restrict any use of the information to criminally investigate or prosecute any alcohol or drug abuse patient.[facility] CenterIn the event this information is protected by the Federal Confidentiality of Alcohol and Drug Abuse Patient Records regulations: The Federal rules restrict any use of the information to criminally investigate or prosecute any alcohol or drug abuse patient.[facility] CenterIn the event this information is protected by the Federal Confidentiality of Alcohol and Drug Abuse Patient Records regulations: The Federal rules restrict any use of the information to criminally investigate or prosecute any alcohol or drug abuse patient.[facility] CenterIn the event this information is protected by the Federal Confidentiality of Alcohol and Drug Abuse Patient Records regulations: The Federal rules restrict any use of the information to criminally investigate or prosecute any alcohol or drug abuse patient.[facility] CenterIn the event this information is protected by the Federal Confidentiality of Alcohol and Drug Abuse Patient Records regulations: The Federal rules restrict any use of the information to criminally investigate or prosecute any alcohol or drug abuse patient.[facility] the event this information is protected by the Federal Confidentiality of Alcohol and Drug Abuse Patient Records regulations: The Federal rules restrict any use of the information to criminally investigate or prosecute any alcohol or drug abuse patient.[facility] CenterIn the event this information is protected by the Federal Confidentiality of Alcohol and Drug Abuse Patient Records regulations: The Federal rules restrict any use of the information to criminally investigate or prosecute any alcohol or drug abuse patient.[facility] CenterIn the event this information is protected by the Federal Confidentiality of Alcohol and Drug Abuse Patient Records regulations: The Federal rules restrict any use of the information to criminally investigate or prosecute any alcohol or drug abuse patient.[facility] CenterIn the event this information is protected by the Federal Confidentiality of Alcohol and Drug Abuse Patient Records regulations: The Federal rules restrict any use of the information to criminally investigate or prosecute any alcohol or drug abuse patient.[facility] CenterIn the event this information is protected by the Federal Confidentiality of Alcohol and Drug Abuse Patient Records regulations: The Federal rules restrict any use of the information to criminally investigate or prosecute any alcohol or drug abuse patient.[facility] CenterIn the event this information is protected by the Federal Confidentiality of Alcohol and Drug Abuse Patient Records regulations: The Federal rules restrict any use of the information to criminally investigate or prosecute any alcohol or drug abuse patient.[facility] CenterIn the event this information is protected by the Federal Confidentiality of Alcohol and Drug Abuse Patient Records regulations: The Federal rules restrict any use of the information to criminally investigate or prosecute any alcohol or drug abuse patient.[facility] CenterIn the event this information is protected by the Federal Confidentiality of Alcohol and Drug Abuse Patient Records regulations: The Federal rules restrict any use of the information to criminally investigate or prosecute any alcohol or drug abuse patient.[facility] CenterIn the event this information is protected by the Federal Confidentiality of Alcohol and Drug Abuse Patient Records regulations: The Federal rules restrict any use of the information to criminally investigate or prosecute any alcohol or drug abuse patient.[facility] CenterIn the event this information is protected by the Federal Confidentiality of Alcohol and Drug Abuse Patient Records regulations: The Federal rules restrict any use of the information to criminally investigate or prosecute any alcohol or drug abuse patient.[facility] CenterIn the event this information is protected by the Federal Confidentiality of Alcohol and Drug Abuse Patient Records regulations: The Federal rules restrict any use of the information to criminally investigate or prosecute any alcohol or drug abuse patient.[facility] CenterIn the event this information is protected by the Federal Confidentiality of Alcohol and Drug Abuse Patient Records regulations: The Federal rules restrict any use of the information to criminally investigate or prosecute any alcohol or drug abuse patient.[facility] CenterIn the event this information is protected by the Federal Confidentiality of Alcohol and Drug Abuse Patient Records regulations: The Federal rules restrict any use of the information to criminally investigate or prosecute any alcohol or drug abuse patient.[facility] CenterIn the event this information is protected by the Federal Confidentiality of Alcohol and Drug Abuse Patient Records regulations: The Federal rules restrict any use of the information to criminally investigate or prosecute any alcohol or drug abuse patient.[facility] CenterIn the event this information is protected by the Federal Confidentiality of Alcohol and Drug Abuse Patient Records regulations: The Federal rules restrict any use of the information to criminally investigate or prosecute any alcohol or drug abuse patient.[facility] CenterIn the event this information is protected by the Federal Confidentiality of Alcohol and Drug Abuse Patient Records regulations: The Federal rules restrict any use of the information to criminally investigate or prosecute any alcohol or drug abuse patient.[facility] CenterIn the event this information is protected by the Federal Confidentiality of Alcohol and Drug Abuse Patient Records regulations: The Federal rules restrict any use of the information to criminally investigate or prosecute any alcohol or drug abuse patient.[facility] CenterIn the event this information is protected by the Federal Confidentiality of Alcohol and Drug Abuse Patient Records regulations: The Federal rules restrict any use of the information to criminally investigate or prosecute any alcohol or drug abuse patient.[facility] CenterIn the event this information is protected by the Federal Confidentiality of Alcohol and Drug Abuse Patient Records regulations: The Federal rules restrict any use of the information to criminally investigate or prosecute any alcohol or drug abuse patient.[facility] CenterIn the event this information is protected by the Federal Confidentiality of Alcohol and Drug Abuse Patient Records regulations: The Federal rules restrict any use of the information to criminally investigate or prosecute any alcohol or drug abuse patient.[facility] CenterIn the event this information is protected by the Federal Confidentiality of Alcohol and Drug Abuse Patient Records regulations: The Federal rules restrict any use of the information to criminally investigate or prosecute any alcohol or drug abuse patient.[facility] CenterIn the event this information is protected by the Federal Confidentiality of Alcohol and Drug Abuse Patient Records regulations: The Federal rules restrict any use of the information to criminally investigate or prosecute any alcohol or drug abuse patient.[facility] CenterIn the event this information is protected by the Federal Confidentiality of Alcohol and Drug Abuse Patient Records regulations: The Federal rules restrict any use of the information to criminally investigate or prosecute any alcohol or drug abuse patient.[facility] CenterIn the event this information is protected by the Federal Confidentiality of Alcohol and Drug Abuse Patient Records regulations: The Federal rules restrict any use of the information to criminally investigate or prosecute any alcohol or drug abuse patient.[facility] Reason for Visit (unrecogniz ed section and content) Reason Comments Follow Up L forearm skin infec tion, seen wednesday,now worse Reason Comments Orders Reason Comments left foot pain X 2 days-cannot reca ll an injury Reason Comments Fatigue Body aches Reason Comments Cough Headaches 2 weeks Neck Pain Posterior neck pain started in the last 3 days Fatigue Reason Comments Eye Problem Left eye is bloodsho t- states it looks a clot that she could just pick off. Reason Comments Depression Reason Comments Follow Up Specialty Diagnoses / Procedures Referred By Contac t Referred To Contact Internal Medicine / FAMILY MEDICINE Diagnoses Follow-up exam Follow up Procedures OFFICE/OUTPATIENT ESTABLISHED MOD MDM 30-39 MIN 4C EST Kenneth Beckett MD [address] [place] [address] Kenneth Beckett MD [address] [place] [address] Referral ID Status Reason Start Date Expiration Date Visits Re quested Visits Authorized [id number] Closed 12/16/2022 11/07/2023 1 1 Reason Comments Spirometry Specialty Diagnoses / Procedures Referred By Contac t Referred To Contact [facility] Diagnoses SOB (shortness of breath) Procedures SPIROMETRY - BASELINE AND POST DILATOR BRNCDILAT RSPSE SPMTRY PRE&POST-BRNCDILAT ADMN Kenneth Beckett MD [address] [place] [address] [facility] [address] [place] [address] Referral ID Status Reason Start Date Expiration Date V isits Requested Visits Authorized [id number] Closed Auto-Generate d Referral 12/28/2022 11/07/2023 1 1 Reason Onset Date Comments Refill Request 01/21/2023 Reason Comments Imm/Inj Reason Comments PPD Read Reason Onset Date Comments Refill Request 04/06/2023 Reason Comments Sore Throat bodyaches and fatigu e, cough x 4am yesterday Reason Comments Results Reason Comments Radiology US Specialty Diagnoses / Procedures Referred By Contac t Referred To Contact [facility] Diagnoses Leg pain, left Procedures US DVT LOWER LEFT DUP-SCAN XTR VEINS UNILATERAL/LIMITED STUDY Vale Iyer, GORDO.NETWORK DESIGN ARCHITECT [address] [place] [address] [place] [address] Referral ID Status Reason Start Date Expiration Date V isits Requested Visits Authorized [id number] Closed Auto-Generate d Referral 07/19/2023 08/17/2024 1 1 Reason Onset Date Comments Refill Request 09/28/2023 Reason Comments Chest Congestion cough and nasal feliciano estion, drainage x 3 days Reason Comments Cough congestion x 4 days Reason Comments Follow Up Reason Onset Date Comments Refill Request 01/10/2024 Reason Comments Insurance Authorization Acyclovir Reason Onset Date Comments Refill Request 03/10/2024 Reason Comments Cough Congestion, body ach es, fatigue, bilateral ear drainage x 1 week Specialty Diagnoses / Procedures Referred By Contac t Referred To Contact Radiology / [facility] Diagnoses Follow-up exam ML Procedures RADIOLOGIC EXAM CHEST 2 VIEWS XR CHEST Kenneth Beckett MD [address] [place] [address] Radio General [facility] [address] [place] [address] Referral ID Status Reason Start Date Expiration Date Visits Re quested Visits Authorized [id number] Closed 12/16/2022 11/07/2023 1 1 Reason Comments New Patient Bilateral wrist pain Reason Comments Back Pain Patient to ED with c /o lower back pain. States he was pulling a 2,000 lb maximo to his trailer last night around 830 pm and felt fine until he started driving. Patient has tried BenGay and Tylenol without relief Reason Onset Date Comments Other 10/03/2024 FMLA/STD Paperwo rk Reason Onset Date Comments Refill Request 10/20/2024 Reason Comments Post-op IPO sx Endoscopic LE FT carpal tunnel release, LEFT ulnocarpal joint injection; DOS 10/20/24 Reason Comments Leg Pain Pt c/o a painful lum p on right upper ruiz since yesterday afternoon. Denies injury, no bruising/redness/heat. Reason Comments Pain Left, lateral foot a nd calf pain Headache Reason Comments New Pain Specialty Diagnoses / Procedures Referred By Shanelle t Referred To Contact Podiatry Diagnoses Foot pain, left Procedures CONSULT TO PODIATRY OFFICE/OUTPATIENT NEW HIGH MDM 60 MINUTES aHnh Sharma, MANAGER DRUG SAFETY.NETWORK DESIGN ARCHITECT [address] [place] [address] Phone: tel: fax: Referral ID Status Reason Start Date Expiration Date V isits Requested Visits Authorized [id number] Closed PCP Requested Referral 01/22/2025 01/22/2026 1 1 Reason Comments Acute Visit Cough, congestion, e ar pressure for about a week Reason Onset Date Comments Refill Request 03/16/2025 Reason Comments Yearly Exam Reason Onset Date Comments Results 04/24/2025 Reason Comments Acute Visit Cough, sinus drainag e, episodes of dizziness, fatigue over the weekend Care Teams (unrecognized sec tion and content) Lockstitch Collar Setter Relationship Specialty Start Date End Date Kenneth Beckett MD [address] [place], [place] [id number] PCP - General Family Practice 09/14/13 Lockstitch Collar Setter Relationship Specialty Start Date End Date Kenneth Beckett MD [address] [place], [place] [id number] PCP - General Family Practice 09/14/13 Lockstitch Collar Setter Relationship Specialty Start Date End Date Kenneth Beckett MD [address] [place] [address] PCP - General Family Medicine 09/14/13 Lockstitch Collar Setter Relationship Specialty Start Date End Date Kenneth Beckett MD [address] [place] [address] PCP - General Family Medicine 09/14/13 Lockstitch Collar Setter Relationship Specialty Start Date End Date Kenneth Beckett MD [address] [place] [address] PCP - General Family Medicine 09/14/13 Lockstitch Collar Setter Relationship Specialty Start Date End Date Kenneth Beckett MD [address] [place] [address] PCP - General Family Medicine 09/14/13 Lockstitch Collar Setter Relationship Specialty Start Date End Date Kenneth Beckett MD [address] [place] [address] PCP - General Family Medicine 09/14/13 Lockstitch Collar Setter Relationship Specialty Start Date End Date Kenneth Beckett MD [address] [place] [address] PCP - General Family Medicine 09/14/13 Lockstitch Collar Setter Relationship Specialty Start Date End Date Kenneth Beckett MD [address] [place] [address] PCP - General Family Medicine 09/14/13 Lockstitch Collar Setter Relationship Specialty Start Date End Date Kenneth Beckett MD [address] [place] [address] PCP - General Family Medicine 09/14/13 Lockstitch Collar Setter Relationship Specialty Start Date End Date Kenneth Beckett MD [address] [place] [address] PCP - General Family Medicine 09/14/13 Lockstitch Collar Setter Relationship Specialty Start Date End Date Kenneth Beckett MD [address] [place], [place] [address] PCP - General Family Medicine 09/14/13 Lockstitch Collar Setter Relationship Specialty Start Date End Date Kenneth Beckett MD [address] [place], [place] [address] PCP - General Family Medicine 09/14/13 Lockstitch Collar Setter Relationship Specialty Start Date End Date Kenneth Beckett MD [address] [place], [place] [address] PCP - General Family Medicine 09/14/13 Lockstitch Collar Setter Relationship Specialty Start Date End Date Kenneth Beckett MD [address] [place] [address] PCP - General Family Medicine 09/14/13 Lockstitch Collar Setter Relationship Specialty Start Date End Date Kenneth Beckett MD [address] [place], [place] [address] PCP - General Family Medicine 09/14/13 Lockstitch Collar Setter Relationship Specialty Start Date End Date Kenneth Beckett MD [address] [place] [address] PCP - General Family Medicine 09/14/13 Lockstitch Collar Setter Relationship Specialty Start Date End Date Kenneth Beckett MD [address] [place], [place] [address] PCP - General Family Medicine 09/14/13 Lockstitch Collar Setter Relationship Specialty Start Date End Date Kenneth Beckett MD [address] [place], [place] [address] PCP - General Family Medicine 09/14/13 Lockstitch Collar Setter Relationship Specialty Start Date End Date Kenneth Beckett MD [address] [place] [address] PCP - General Family Medicine 09/14/13 Lockstitch Collar Setter Relationship Specialty Start Date End Date Kenneth Beckett MD [address] [place] [address] PCP - General Family Medicine 09/14/13 Lockstitch Collar Setter Relationship Specialty Start Date End Date Kenneth Beckett MD [address] [place] [address] PCP - General Family Medicine 09/14/13 Lockstitch Collar Setter Relationship Specialty Start Date End Date Kenneth Beckett MD [address] [place] [address] PCP - General Family Medicine 09/14/13 Lockstitch Collar Setter Relationship Specialty Start Date End Date Kenneth Beckett MD [address] [place] [address] PCP - General Family Medicine 09/14/13 Lockstitch Collar Setter Relationship Specialty Start Date End Date Kenneth Beckett MD [address] [place] [address] PCP - General Family Medicine 09/14/13 Lockstitch Collar Setter Relationship Specialty Start Date End Date Kenneth Beckett MD [address] [place], [place] [address] PCP - General Family Medicine 09/14/13 Lockstitch Collar Setter Relationship Specialty Start Date End Date Kenneth Beckett MD [address] [place], [place] [address] PCP - General Family Medicine 09/14/13 Lockstitch Collar Setter Relationship Specialty Start Date End Date Kenneth Beckett MD [address] [facility], [place] [address] PCP - General Family Medicine 09/14/13 Lockstitch Collar Setter Relationship Specialty Start Date End Date Kenneth Beckett MD [address] [facility], [place] [address] PCP - General Family Medicine 09/14/13 Lockstitch Collar Setter Relationship Specialty Start Date End Date Kenneth Beckett MD [address] [place], [place] [address] PCP - General Family Medicine 09/14/13 Lockstitch Collar Setter Relationship Specialty Start Date End Date Kenneth Beckett MD [address] [place] [address] PCP - General Family Medicine 09/14/13 Lockstitch Collar Setter Relationship Specialty Start Date End Date Kenneth Beckett MD [address] [facility] Mail Code [address] [place], [place] [id number] PCP - General Family Medicine 09/05/24 Lockstitch Collar Setter Relationship Specialty Start Date End Date Kenneth Beckett MD [address] [place] [address] PCP - General Family Medicine 09/14/13 Yennifer Worrell APRN.NETWORK DESIGN ARCHITECT [address] [facility], [place] [address] Fws Faculty Assistant Family Medicine 10/16/24 Hanh Sharma APRN.NETWORK DESIGN ARCHITECT [address] [facility], [place] [id number] Fws Faculty Assistant Family Medicine 10/16/24 Lockstitch Collar Setter Relationship Specialty Start Date End Date Kenneth Beckett MD [address] [place], [place] [address] PCP - General Family Medicine 09/14/13 Yennifer Worrell, MANAGER DRUG SAFETY.NETWORK DESIGN ARCHITECT [address] [place] [address] Fws Faculty Assistant Family Medicine 10/16/24 Hanh Sharma MANAGER DRUG SAFETY.NETWORK DESIGN ARCHITECT [address] [place] [address] [facility] 10/16/24 Lockstitch Collar Setter Relationship Specialty Start Date End Date Kenneth Beckett MD [address] [place] [address] PCP - General Family Medicine 12/25/24 Lockstitch Collar Setter Relationship Specialty Start Date End Date Kenneth Beckett MD [address] [place] [address] PCP - General Family Medicine 09/14/13 Yennifer Worrell, MANAGER DRUG SAFETY.NETWORK DESIGN ARCHITECT [address] [place] [address] Fws Faculty Assistant Family Medicine 10/16/24 Hanh Sharma MANAGER DRUG SAFETY.NETWORK DESIGN ARCHITECT [address] [place] [address] [facility] Family Medicine 10/16/24 Lockstitch Collar Setter Relationship Specialty Start Date End Date Kenneth Beckett MD [address] [place] [address] PCP - General Family Medicine 09/14/13 Yennifer Worrell, MANAGER DRUG SAFETY.NETWORK DESIGN ARCHITECT [address] [facility] [place] [address] [facility]ws [facility]Ad[facility] 10/16/24 Hanh Sharma MANAGER DRUG SAFETY.NETWORK DESIGN ARCHITECT [address] [facility] [place] [address] Fws Faculty [facility]Ad[facility] 10/16/24 Lockstitch Collar Setter Relationship Specialty Start Date End Date Kenneth Beckett MD [address] [place] [address] PCP - General Family Medicine 09/14/13 Yennifer Worrell MANAGER DRUG SAFETY.NETWORK DESIGN ARCHITECT [address] [facility] [place] [place] [address] Fws Faculty [facility]Ad[facility] 10/16/24 Hanh Sharma MANAGER DRUG SAFETY.NETWORK DESIGN ARCHITECT [address] [place] [address] [facility] 10/16/24 Lockstitch Collar Setter Relationship Specialty Start Date End Date Kenneth Beckett MD [address] [facility] [place] [address] PCP - General Family Medicine 09/14/13 Yennifer Worrell, MANAGER DRUG SAFETY.NETWORK DESIGN ARCHITECT [address] [facility] [place] [place] [address] [facility] 10/16/24 Hanh Sharma MANAGER DRUG SAFETY.NETWORK DESIGN ARCHITECT [address] [facility] [place] [address] [facility] 10/16/24 Lockstitch Collar Setter Relationship Specialty Start Date End Date Kenneth Beckett MD [address] [facility] [place] [address] PCP - General Family Medicine 09/14/13 Yennifer Worrell APRN.NETWORK DESIGN ARCHITECT [address] [facility] [place] [address] Fws Faculty Assistant Family Medicine 10/16/24 Hanh Sharma APRN.NETWORK DESIGN ARCHITECT [address] [facility] [place] [address] Fws [facility]Mer[facility] 10/16/24 Lockstitch Collar Setter Relationship Specialty Start Date End Date Kenneth Beckett MD [address] [facility] [place] [address] PCP - General Family Medicine 09/14/13 Yennifer Worrell APRN.NETWORK DESIGN ARCHITECT [address] [facility] [place] [address] Fws Faculty AssistantMer[facility] 10/16/24 Hanh Sharma APRN.NETWORK DESIGN ARCHITECT [address] [facility] [place] [address] Fws Faculty AssistantAd[facility] 10/16/24 Lockstitch Collar Setter Relationship Specialty Start Date End Date Kenneth Beckett MD [address] [facility] [place] [address] PCP - General Family Medicine 09/14/13 Yennifer Worrell APRN.NETWORK DESIGN ARCHITECT [address] [facility] [place] [address] Fws Faculty Assistant Family Medicine 10/16/24 Hanh Sharma APRN.NETWORK DESIGN ARCHITECT [address] [place] [address] [facility] 10/16/24 Lockstitch Collar Setter Relationship Specialty Start Date End Date Kenneth Beckett MD [address] [facility] [place] [address] PCP - General Family Medicine 09/14/13 Yennifer Worrell, MANAGER DRUG SAFETY.NETWORK DESIGN ARCHITECT [address] [place] [address] [facility] 10/16/24 Hanh Sharma MANAGER DRUG SAFETY.NETWORK DESIGN ARCHITECT [address] [place], [place] [address] [facility] 10/16/24 Team Status: Active Member Role Status Dates Dr. Kenneth Beckett MD Primary Care Provider Active Team Status: Inactive Member Role Status Dates Dr. Kenneth Beckett MD Primary Care Provider Active Start: January 15, 2025 End: January 15, 2025 Dr. Kenneth Beckett MD Referring Provider Active Start: January 15, 2025 End: January 15, 2025 Dr. Ole Moss MD Attending Provider Active Start: January 15, 2025 End: January 15, 2025 Team Status: Inactive Member Role Status Dates Dr. Kenneth Beckett MD Primary Care Provider Active Start: April 30, 2025 End: April 30, 2025 Lee Jaeger MD Referring Provider Active Star t: April 30, 2025 End: April 30, 2025 Lee Jaeger MD Emergency Provider Active Star t: April 30, 2025 End: April 30, 2025 Lockstitch Collar Setter Relationship Specialty Start Date End Date Kenneth Beckett MD [address] [facility] [place] [place] [address] PCP - General Family Medicine 09/14/13 Yennifer Worrell, MANAGER DRUG SAFETY.NETWORK DESIGN ARCHITECT [address] [place], [place] [id number] [facility] 10/16/24 Hanh Sharma APRN.NETWORK DESIGN ARCHITECT [address] [place] [address] [facility] 10/16/24 Team Status: Inactive Member Role Status Dates Dr. Kenneth Beckett MD Primary Care Provider Active Start: May 02, 2025 End: May 02, 2025 Dr. Kenneth Beckett MD Referring Provider Active Start: May 02, 2025 End: May 02, 2025 ANGELITO Hammond Attending Provider Active St art: May 02, 2025 End: May 02, 2025 Scheduled Active and Recently Administ ered Medications (unrecognized section and content) Medication Order 09/03/2024 09/04/2024 09/05/2024 Cyclobenzaprine (FLEXERIL) tablet 10 mg (COMPLETED) 10 mg, Oral, ONCE, 1 dose, On Wed09/05/24 at 2099 2038 (Given - Provid er: Lalito Hernandez RN) Ketorolac (TORADOL) injection 30 mg (COMPLETED) 30 mg, Intramuscular, ONCE, 1 dose, On Wed09/05/24 at 2100 2039 (Given - Provid er: Lalito Hernandez RN) traMADol (ULTRAM) tablet 1 Each Oral, SEE ADMIN INSTRUCTIONS, Starting on Wed09/05/24 at 2057, Until Wed09/05/24 at 2315, Provide patient with 4 pack of Tramadol 50 mg, take 1 or 2 tabs by mouth every 4 hours as needed for pain. Nursing to document as GIVEN on the JAN and include comment of patient receipt of the 4 pack. 2106 (Given - Provid er: Lalito Hernandez RN - Comment: sent home with patient) Scheduled Medication Order 10/18/2024 10/19/2024 10/20/2024 acetaminophen (Tylenol) tablet 1,000 mg (COMPLETED) 1,000 mg, Oral, Once, On Wed10/20/24 at 0915, For 1 dose, Preprocedure, Administer 60 minutes prior to surgery. 0944 (Given - Provid er: Fabiana Sanchez RN) ceFAZolin (Ancef) 2,000 mg in sodium chloride 0.9 % 100 mL IVPB (COMPLETED) 2,000 mg, IntraVENous, at 200 mL/hr, Administer over 30 Minutes, Geropsychologist to O.R., On Wed10/20/24 at 0915, For 1 dose, Preprocedure, Administer within 1 hour prior to incision. Recommend to repeat in 3-4 hours after initial dose if still intra-op. Mini-Bag Plus bag, Suspected Indication (Select all that apply): Surgical Prophylaxis 1157 (New Bag - Prov ider: Tayler Thomson, MANAGER DRUG SAFETY - CLINICAL TRIAL EDUCATOR) famotidine (Pepcid) tablet 20 mg (COMPLETED)(Linked Group 1) 20 mg, Oral, Once, On Wed10/20/24 at 0915, For 1 dose, Preprocedure, IV or Oral - Use PO option as first line. If unable to tolerate PO, then okay to use IV. 0944 (Given - Provid er: Fabiana Sanchez RN) sodium chloride 0.9% (NS) flush 10 mL 10 mL, IntraVENous, Every 12 hours scheduled (2 times per day), First dose on Wed10/20/24 at 0915, Preprocedure 0915 (Canceled Entry - Provider: Automatic Discharge Provider - Comment: Automatically canceled at discontinue of medication order) sodium chloride 0.9% (NS) flush 5-40 mL 5-40 mL, IntraVENous, Every 12 hours, First dose on Wed10/20/24 at 0915, Preprocedure, For Line Patency: Peripheral IV = 5 mL; Midline or Central Line = 10 mL/lumen. If following IV push medication, administer flush at same rate as the IV push. Flush volume is determined by type of infusion therapy being given. For non-viscous solutions use: Peripheral IV = 5 mL Midline or Central Line = 10 mL/lumen For viscous solutions (i.e. blood components, parenteral nutrition, contrast media, or after obtaining blood sample) use: Peripheral IV = 10 mL Midline or Central Line = 20 mL/lumen 0915 (Canceled Entry - Provider: Automatic Discharge Provider - Comment: Automatically canceled at discontinue of medication order) Continuous Medication Order 10/18/2024 10/19/2024 10/20/2024 lactated Ringer's (LR) infusion 50 mL/hr, IntraVENous, Continuous, Starting on Wed10/20/24 at 0915, Preprocedure, Upon admission to sameday - please start iv if patient does not have iv access. Use 500ml NS for patients on dialysis. 0915 (Canceled Entry - Provider: Automatic Discharge Provider - Comment: Automatically canceled at discontinue of medication order) PRN Medication Order 10/18/2024 10/19/2024 10/20/2024 betamethasone acetate-betamethasone sodium phosphate (Celestone) injection (CANCELED) As needed, Starting on Wed10/20/24 at 1203, Intraprocedure 1203 (Given - Provid er: Edinson Alanis MD - Comment: mixed 50/50 with 1% plain) diphenhydrAMINE (BENADryl) injection 12.5 mg 12.5 mg, IntraVENous, Once PRN, itching, Starting on Wed10/20/24 at 1315, For 1 dose, Recovery (only) hydrALAZINE (Apresoline) injection 5 mg(Linked Group 2) 5 mg, IntraVENous, Every 15 min PRN, high blood pressure, for SBP greater than 160 mmHg for 2 consecutive measurements taken from different sites, Starting on Wed10/20/24 at 1315, For 2 doses, Recovery (only), PRN for SBP > 160 for 2 consecutive measurements, and if one of the following conditions is met: 1) If IV labetolol is ineffective. 2) If HR is under 60. 3) If patient has heart block, COPD or asthma. If both labetalol and hydralazine ineffective, notify anesthesia provider. HYDROmorphone (Dilaudid) injection 0.25 mg 0.25 mg, IntraVENous, Every 5 min PRN, moderate pain (4-6), Starting on Wed10/20/24 at 1315, For 4 doses, Recovery (only), For Phase I. If Phase II oral narcotics have been administered in the last 60 minutes, do not administer IV narcotics unless specifically approved by provider. HYDROmorphone (Dilaudid) injection 0.5 mg 0.5 mg, IntraVENous, Every 5 min PRN, severe pain (7-10), Starting on Wed10/20/24 at 1315, For 4 doses, Recovery (only), For Phase I. If Phase II oral narcotics have been administered in the last 60 minutes, do not administer IV narcotics unless specifically approved by provider. labetalol (Normodyne,Trandate) injection 5 mg(Linked Group 2) 5 mg, IntraVENous, Every 10 min PRN, high blood pressure, for SBP greater than 160 mmHg for 2 consecutive measurements taken from different sites., Starting on Wed10/20/24 at 1315, For 2 doses, Recovery (only), PRN for SBP >160 for 2 consecutive measurements, if HR is 60 or greater. If beta andry is contraindicated (HR less than 60, heart block, COPD or asthma) use hydralazine IV order. lidocaine (Xylocaine) 1 % injection (CANCELED) As needed, Starting on Wed10/20/24 at 1203, Intraprocedure 1203 (Given - Provid er: Edinson Alanis MD) lidocaine-EPINEPHrine (Xylocaine W/EPI) 1 %-1:[id number] injection (CANCELED) As needed, Starting on Wed10/20/24 at 1204, Intraprocedure 1204 (Given - Provid er: Edinson Alanis MD) LORazepam (Ativan) injection 0.5 mg 0.5 mg, IntraVENous, Once PRN, for anxiety or muscle spasm., Starting on Wed10/20/24 at 1315, For 1 dose, Recovery (only), For IV doses dilute dose with 1ml NS. meperidine (Demerol) injection 12.5 mg 12.5 mg, IntraVENous, Every 5 min PRN, shivering, Starting on Wed10/20/24 at 1315, For 2 doses, Recovery (only), May give every 5 minutes to max of 25mg. Notify Anesthesia Provider before administration. ondansetron (Zofran) injection 4 mg 4 mg, IntraVENous, Once PRN, nausea, Starting on Wed10/20/24 at 1315, For 1 dose, Recovery (only), Initial antiemetic therapy. oxyCODONE (Roxicodone) immediate release tablet 10 mg(Linked Group 3) 10 mg, Oral, Every 4 hours PRN, severe pain (7-10), Starting on Wed10/20/24 at 1315, For 1 dose, Recovery (only), PHASE II oxyCODONE (Roxicodone) immediate release tablet 5 mg(Linked Group 3) 5 mg, Oral, Every 4 hours PRN, moderate pain (4-6), Starting on Wed10/20/24 at 1315, For 1 dose, Recovery (only), PHASE II sodium chloride 0.9 % bolus 500 mL 500 mL, IntraVENous, at 1,000 mL/hr, Administer over 0.5 Hours, PRN, Anti-nausea, Starting on Wed10/20/24 at 1216, Recovery (only), Indications: Anti-nausea sodium chloride 0.9 % infusion 5-250 mL/hr, IntraVENous, PRN, if patient receiving piggyback infusions and maintenance fluids are not ordered OR KVO fluids to protect IV site / prevent frequent line interruptions / long duration, Starting on Wed10/20/24 at 0908, Preprocedure, For piggyback infusion, administer at same rate as piggyback for a total of 25 mL. Enter 25 mL into dose field and piggyback rate into rate field of order. If piggyback is infusing at a rate less than 100 mL/hr, enter 25 mL into dose field and 100 mL/hr into rate field of order. For KVO fluids, enter rate of 20 mL/hr or less into rate field of order. sodium chloride 0.9 % infusion 5-250 mL/hr, IntraVENous, PRN, if patient receiving piggyback infusions and maintenance fluids are not ordered OR KVO fluids to protect IV site / prevent frequent line interruptions/ long duration, Starting on Wed10/20/24 at 0908, Preprocedure, For piggyback infusion, administer at same rate as piggyback for a total of 25 mL. Enter 25 mL into dose field and piggyback rate into rate field of order. If piggyback is infusing at a rate less than 100 mL/hr, enter 25 mL into dose field and 100 mL/hr into rate field of order. For KVO fluids, enter rate of 20 mL/hr or less into rate field of order. sodium chloride 0.9 % irrigation solution (CANCELED) As needed, Starting on Wed10/20/24 at 1203, Intraprocedure 1203 (Given - Provid er: Edinson Alanis MD) sodium chloride 0.9% (NS) flush 10 mL 10 mL, IntraVENous, PRN, line care, Starting on Wed10/20/24 at 0908, Preprocedure, After every IV line use sodium chloride 0.9% (NS) flush 5-40 mL 5-40 mL, IntraVENous, PRN, line care, After every IV line use, Starting on Wed10/20/24 at 0908, Preprocedure, For Line Patency: Peripheral IV = 5 mL; Midline or Central Line = 10 mL/lumen. If following IV push medication, administer flush at same rate as the IV push. Flush volume is determined by type of infusion therapy being given. For non-viscous solutions use: Peripheral IV = 5 mL Midline or Central Line = 10 mL/lumen For viscous solutions (i.e. blood components, parenteral nutrition, contrast media, or after obtaining blood sample) use: Peripheral IV = 10 mL Midline or Central Line = 20 mL/lumen Linked Groups Order Group 1: famotidine (Pepcid) tablet 20 mg (COMPLETED)Jump to med 20 mg, Oral, Once, On Wed10/20/24 at 0915, For 1 dose, Preprocedure, IV or Oral - Use PO option as first line. If unable to tolerate PO, then okay to use IV. Or famotidine (Pepcid) 20 mg in sodium chloride (PF) 0.9 % 10 mL injection (COMPLETED) 20 mg, IntraVENous, Administer over 2 Minutes, Once, On Wed10/20/24 at 0915, For 1 dose, Preprocedure, IV or Oral Group 2: labetalol (Normodyne,Trandate) injection 5 mgJump to med 5 mg, IntraVENous, Every 10 min PRN, high blood pressure, for SBP greater than 160 mmHg for 2 consecutive measurements taken from different sites., Starting on Wed10/20/24 at 1315, For 2 doses, Recovery (only), PRN for SBP >160 for 2 consecutive measurements, if HR is 60 or greater. If beta andry is contraindicated (HR less than 60, heart block, COPD or asthma) use hydralazine IV order. Or hydrALAZINE (Apresoline) injection 5 mgJump to med 5 mg, IntraVENous, Every 15 min PRN, high blood pressure, for SBP greater than 160 mmHg for 2 consecutive measurements taken from different sites, Starting on Wed10/20/24 at 1315, For 2 doses, Recovery (only), PRN for SBP > 160 for 2 consecutive measurements, and if one of the following conditions is met: 1) If IV labetolol is ineffective. 2) If HR is under 60. 3) If patient has heart block, COPD or asthma. If both labetalol and hydralazine ineffective, notify anesthesia provider. Group 3: oxyCODONE (Roxicodone) immediate release tablet 5 mgJump to med 5 mg, Oral, Every 4 hours PRN, moderate pain (4-6), Starting on Wed10/20/24 at 1315, For 1 dose, Recovery (only), PHASE II Or oxyCODONE (Roxicodone) immediate release tablet 10 mgJump to med 10 mg, Oral, Every 4 hours PRN, severe pain (7-10), Starting on Wed10/20/24 at 1315, For 1 dose, Recovery (only), PHASE II Goals (unrecognized section and content) Goals may be documented in a n alternate sectionGoals may be documented in an alternate section FOR RECORDS PERTAINING TO PATIENTS WHO ARE OR HAVE BEEN ENROLLED IN A CHEMICAL DEPENDENCY/SUBSTANCEABUSE PROGRAM, SOME INFORMATION MAY BE OMITTED. This clinical summary was aggregated from multiple sources. Caution should be exercised in using it in the provision of clinical care. This summary normalizes information from multiple sources, and as a consequence, information in this document may materially change the coding, format and clinical context of patient data. In addition, data may be omitted in some cases. CLINICAL DECISIONS SHOULD BE BASED ON THE PRIMARY CLINICAL RECORDS. [employer] [facility]. provides no warranty or guarantee of the accuracy or completeness of information in this document.
[2025-05-04 04:05] LABS: Absolute Lymphocyte Count 3.19 X10^3/uL (0.83-4.51); Absolute Neutrophil Count 2.9 X10^3/uL (2.0-7.7); Basophil# 0.06 X10^3/uL; Basophil% 0.9 % (0-1); Eosinophil# 0.11 X10^3/uL; Eosinophils% 1.7 % (0-5); Hematocrit 45.2 % (40-54); Hemoglobin 15.5 g/dL (13.0-16.5); Lymphocyte # 3.19 X10^3/ul (0.83-4.51); Lymphocyte % 48.3 % (19-41); Mean Corp Hgb Conc 34.3 g/dL (32-36); Mean Corpuscular Hgb 31.4 pg (27.0-32.0); Mean Corpuscular Volume 91.7 fL (80-94); Mean Platelet Vol. 10.7 fl (6.2-12.0); Monocyte% 4.5 % (0-10); NRBC Flagged by Analyzer 0 % (0-5); Neutrophil # 2.91 X10^3/uL (2.7-7.7); Neutrophil % 44.1 % (47-70); Platelet Count 227 K/mm3 (150-450); RBC Distribution Width CV 13.5 % (11.6-14.6); RBC Distribution Width SD 45.6 fl (35.1-43.9); Red Blood Count 4.93 M/mm3 (4.6-6.2); White Blood Count 6.6 K/mm3 (4.4-11.0)
--- NOTE | 2025-05-04 04:10 | RAD_ITS ---
PROCEDURE: CHEST PA AND LATERAL 05/04/2025 REASON FOR EXAM: CHEST PAIN TECHNIQUE: CHEST PA AND LATERAL COMPARISON: 04/30/2025 FINDINGS: Normal heart size. Well inflated lungs. No consolidation, effusion, or pneumothorax. RAD/Chest PA and Lateral IMPRESSION: No acute chest findings Reading Location: [facility]
[2025-05-04 04:21] LABS: Magnesium 2.2 mg/dL (1.5-2.2); Pro- Brain NATRIURETIC PEPTIDE 957 pg/mL (<=900); Troponin T High Sensitivity 8 ng/L (<=22)
[2025-05-04 04:36] LABS: BUN 17 mg/dL (4-19); BUN/Creat Ratio 15.7 RATIO (10-20); Calcium,Total 9.4 mg/dL (7.6-11.0); Chloride 101 mmol/L (98-108); Creatinine, Serum 1.06 mg/dL (0.70-1.20); EST Glomerular Filtration Rate 79 (>60); Estimated Creatinine Clearance 98.24 ml/min (50-250); Glucose 123 mg/dL (70-99); Potassium 4.3 mmol/L (3.3-5.1); Sodium Level 136 mmol/L (133-145)
[2025-05-04 04:54] LABS: Anion Gap 12 (5-15); Carbon Dioxide 23.2 mmol/L (21.0-32.0)
[2025-05-04 05:21] VITALS: BP 112/86; PULSE 73; RESP 15; O2SAT 94
[2025-05-04 06:10] LABS: Troponin T High Sens 2 HR 8 ng/L (<=22)
[2025-05-04 06:18] VITALS: BP 118/86; PULSE 74; RESP 16; TEMP 36.6; O2SAT 99
== END 2025-05-04 06:18 | disposition home or self-care (01) ==
PROVIDERS: Emergency Provider Surgery; PCP Family Medicine; Visit Provider Surgery
DX: R07.9 Chest pain, unspecified (principal); I48.0 Paroxysmal atrial fibrillation; Z79.01 Long term (current) use of anticoagulants; Z79.899 Other long term (current) drug therapy; Z90.49 Acquired absence of other specified parts of digestive tract; I95.9 Hypotension, unspecified
CPT/HCPCS: 71046; 80048; 83735; 83880; 84484; 85025; 93005; 99284; A4216

== ENCOUNTER 2025-06-18 09:25 | Outpatient (CLI) | payer OTHER, SELFPAY ==
--- NOTE | 2025-06-18 09:27 | STE_ITS ---
Reason For Study Reason For Study: AFIB/FLUTTER Stress Results Protocol: Ivan Protocol Maximum Predicted HR: 158 bpm Target HR: 134 bpm % Maximum Predicted HR: 85 % DurationHeart Rate Stage (mm:ss) (bpm) BP Comment BASELINE 56 118/82 STAGE 1 3:00 110 178/80 STAGE 2 3:00 134 182/70INCREASED SOB, PVC'S NOTED RECOVERY 76 128/82 Stress Duration: 6:00 mm:ss Maximum Stress HR: 134 bpm Baseline Echocardiogram Findings Stress Echo Wall motion Data Resting WM Intermediate WM Stress WM ECHO/Stress Test Echo w/o Contrast Interpretation Summary Exercise stress echo. 64-year-old man with a history of atrial fibrillation flutter. Resting EKG demonstrates sinus bradycardia with a rate of 56 bpm normal interva ls are noted resting blood pressure is 118/82 mmHg. The patient exercised according to regular Ivan protocol for a to melina duration of 6 minutes. Patient completed stage III of the Ivan protocol. The patient maintained sinus rhythm with occasional ventricular couplets activity noted. At rest there were no ST or T wave changes noted suggest ischem ia and at peak exercise nonspecific ST changes were noted we did not meet the criteria for ischemia. There were short paroxysms of atrial fibrillation noted especially during recovery with right bundle branch block aberrancy noted. Ther e was an 11 beat run of a supraventricular tachyarrhythmia with a rate of approximately 260 bpm. The abov e was noted to be asymptomatic. The peak blood pressure was 182/70 mmHg with a rate-pressure product of 23,800. The work load attained was 7.2 METS. Stress echocardiogram. Stress echocardiographic evaluation demonstrated normal ejection fraction at re st estimated to be 65% and at peak exercise there was improvement in ejection fraction to 75% with no wall motion abnormalities to suggest ischemia. Conclusion: Exercise stress test with no EKG criteria for ischemia at a moderate workload. Good functional aerobic capacity. No sustained atrial fibrillation noted. Ordering Physician: Shashi Yeh Referring Physician: Shashi Yeh Performed By: Peggy Pires, EFE, RVT
== END 2025-06-18 23:59 | disposition home or self-care (01) ==
LOC: CVS 09:26
PROVIDERS: PCP Family Medicine; Referring Provider Student in an Organized Health Care Education/Training Program; Visit Provider Student in an Organized Health Care Education/Training Program
DX: I48.0 Paroxysmal atrial fibrillation (principal)
CPT/HCPCS: 93017; 93350

== ENCOUNTER 2025-08-02 20:25 | Emergency (ER) | payer OTHER, SELFPAY ==
[2025-08-02 20:28] VITALS: BP 107/65; PULSE 87; RESP 20; TEMP 35.9; O2SAT 97; BMI 33.6
--- NOTE | 2025-08-02 20:38 | EKG12_ITS ---
Test Reason : DYSRHYTHMIA Blood Pressure : */* mmHG Vent. Rate : 110 BPM Atrial Rate : * BPM P-R Int : * ms QRS Dur : 84 ms QT Int : 336 ms P-R-T Axes : * 4 40 degrees QTcB Int : 454 ms Atrial fibrillation with rapid ventricular response Abnormal ECG Confirmed by LUIS ALFREDO SOMERS, FERNIE ([id number]), editor city BRIANNE BRAUN ([id number]) on 08/03/2025 11:01:24 AM Referred By: Confirmed By: FERNIE LOBATO MD
[2025-08-02 21:07] LABS: Hematocrit 45.5 % (40-54); Hemoglobin 15.6 g/dL (13.0-16.5); Immature Granulocytes Count 0.020 X10^3/uL (0.0-0.0); Mean Corp Hgb Conc 34.3 g/dL (32-36); Mean Corpuscular Volume 91.7 fL (80-94); Mean Platelet Vol. 9.9 fl (6.2-12.0); NRBC Flagged by Analyzer 0 % (0-5); Platelet Count 236 K/mm3 (150-450); RBC Distribution Width CV 13.6 % (11.6-14.6); RBC Distribution Width SD 45.7 fl (35.1-43.9); Red Blood Count 4.96 M/mm3 (4.6-6.2); White Blood Count 6.2 K/mm3 (4.4-11.0)
--- NOTE | 2025-08-02 21:11 | EX.ED.DYSGE1 ---
HPI History of Present Illness Chief Complaint: Palpitations Narrative Narrative: Patient is a 64-year-old male presenting to the emergency department for palpitations. Patient has past medical history of paroxysmal A-fib, cardioverted in 2019. Patient is on Eliquis and has been compliant, denies missing any doses. States that he follows with [facility]. Patient states this morning at 4 AM he felt himself go into A-fib. States that he had some chest discomfort all across the front of his chest as well as some shortness of breath. States that the chest discomfort and shortness of breath has since improved. Denies any recent fever, chills, sore throat, cough. Denies any abdominal pain, diaphoresis, nausea or vomiting. Denies any lower extremity edema. PFSH [facility] Medical History Paroxysmal atrial fibrillation Hypersomnia Chest pain New onset atrial fibrillation Acute cholecystitis Acute renal insufficiency MRSA infection right ring finger infection Tenosynovitis of finger Home Medications ?Medication ?Instructions ?Recorded ?Last Taken ?Type sertraline 50 mg tablet 50 mg PO DAILY 05/04/25 Unknown History apixaban 5 mg tablet (Eliquis) 5 mg PO BID #60 tabs 05/30/25 Unknown Rx metoprolol tartrate 25 mg tablet 25 mg PO BID #180 tabs 06/28/25 Unknown Rx Allergy/AdvReac Type Severity Reaction Status Date / Time Iodinated Contrast Media AdvReac Other Verified 08/02/25 20:28 (CONTRASTS) Family History Mother Alzheimer's disease Father Brain tumor S/P lobectomy of lung S/p nephrectomy Cancer Brother COPD (chronic obstructive pulmonary disease) Sister Alzheimer's disease Surgical History History of cardioversion (01/03/20) History of tonsillectomy and adenoidectomy History of colonoscopy (11/27/16) history of finger surgery History of cholecystectomy (06/20/19) Social History household members: spouse Smoking Status: Never smoker substance use type: does not use ROS ROS ED ROS Narrative See HPI EXAM Physical Exam Narrative Exam Narrative: Vital signs: Reviewed General: Alert and oriented x 3. No acute distress HEENT: Head is normocephalic and atraumatic, sinuses nontender, pupils equal round and reactive. Nares are patent. Oropharynx and throat exams normal. Neck: Supple without lymphadenopathy nontender Cardiovascular: Irregularly irregular rate and rhythm, no murmurs. No rubs or gallops. Normal S1 and S2. Respiratory: Clear to auscultation bilaterally. No wheezes, rales, rhonchi Abdominal: Soft and nontender. Normal bowel sounds. No guarding or rebound. Nonsurgical abdomen Extremities: No lower extremity edema noted. No tenderness. No bruising. Normal range of motion. Normal sensation. Skin: No rash or redness. Neurological: Cranial nerves II through XII are grossly intact. Normal strength and sensation. Normal cerebellar function The rest of the physical exam is unremarkable Const Vital Signs: 08/02/25 20:28 08/02/25 21:14 08/02/25 21:14 Temperature 96.7 F L Temperature Source Temporal Pulse Rate 87 Respiratory Rate 20 H Respiratory Effort Normal Non-Labored Respiratory Pattern Normal Blood Pressure 107/65 Blood Pressure Mean 79 Pulse Ox 97 96 Oxygen Delivery Method Room Air Room Air 08/02/25 22:00 08/02/25 22:26 Temperature 98 F Temperature Source Pulse Rate 109 H 92 Respiratory Rate 18 19 H Respiratory Effort Respiratory Pattern Blood Pressure 108/71 108/71 Blood Pressure Mean 83 83 Pulse Ox 95 96 Oxygen Delivery Method Room Air MDM MDM MDM Narrative Medical decision making narrative: Patient is a 64-year-old male presenting to the emergency department for palpitations. Patient was seen and examined. Vitals are stable. Patient resting bed comfortably no acute distress. EKG with A-fib with RVR at a rate of 110. There is no ischemic changes. CBC with no leukocytosis and a normal hemoglobin. BMP with no significant normalities. TSH and magnesium within normal limits. Troponin within normal limits at 16. Given the patient initially had chest pain at 4 AM I would expect this level to be elevated if it was cardiac in nature. He is no longer having chest discomfort or shortness of breath and he is in A-fib with RVR at this time. Patient has no prior history of PE or DVT he is compliant with his Eliquis and has no pleuritic chest pain or shortness of breath at time of evaluation, I do not think this is secondary to a pulmonary embolism given the above. Chest x-ray reviewed myself. No opacities, pneumothorax or widened mediastinum. Radiology read with no acute radiographic abnormalities. Patient was given a fluid bolus while here and when he was reevaluated his pulse was between 70 and 90. He was still in atrial fibrillation but he is asymptomatic. I did discuss with Dr. Moss, color blender refrigeration specialist, given the patient's asymptomatic I do not think it is indicated to cardiovert the patient at this time. He agrees with me. Recommends giving an extra dose of the patient's metoprolol this evening. He took his 1 dose. Recommended seeing if the patient will convert overnight with extra dose of metoprolol. Dr. Moss states his office will call tomorrow morning for follow up tomorrow. Patient and updated on the discussion and they feel comfortable with the plan. Patient discharged from the Emergency Department. I do not feel that the patient's evaluation reveals any acute reason for admission at this time. I instructed them to either follow-up with their primary care physician or promptly return to the Emergency Department for reevaluation should symptoms worsen or new symptoms develop. I explained what symptoms would indicate the need to return to the emergency department. Shared decision making was used. The patient voiced understanding of the treatment plan and is agreeable with it. Clinical impression A-fib Intermittent chest pain History & Record Review Discussion w/independent historian: Patient and Significant other Additional record(s) reviewed:: Prior ED visit and Prior labs Lab Data Attestation: I reviewed the patient's lab results. Labs: Laboratory Results - last 24 hr 08/02/25 20:49 WBC 6.2 RBC 4.96 Hgb 15.6 Hct 45.5 MCV 91.7 MCH 31.5 MCHC 34.3 RDW Std Deviation 45.7 H RDW Coeff of Mariola 13.6 Plt Count 236 MPV 9.9 Immature Gran % (Auto) 0.300 Neut % (Auto) 49.1 Lymph % (Auto) 42.5 H [place] % (Auto) 5.2 Eos % (Auto) 2.1 Baso % (Auto) 0.8 Absolute Neuts (auto) 3.0 Absolute Lymphs (auto) 2.63 Nucleated RBC % 0 Sodium 138 Potassium 4.2 Chloride 105 Carbon Dioxide 24.5 Anion Gap 8 BUN 14 Creatinine 1.07 Estim Creat Clear Calc 98.08 Est GFR (MDRD) Non-Af 78 BUN/Creatinine Ratio 12.9 Glucose 122 H Calcium 8.9 Magnesium 2.1 Troponin T High Sens 16 D TSH 2.820 Radiography Chest X-Ray - ED: 2 View, Read by ED Physician, No Acute Disease and No Infiltrates Diagnostic Testing: Clinical Impression(s) from Imaging Studies Chest X-Ray 08/02/25 21:23 IMPRESSION: No acute cardiopulmonary disease. Reading Location: [facility] Discharge Plan Triage Chief Complaint: Palpitations ED Provider: Charity Schmidt Dx/Rx/DC Orders Clinical Impression: Paroxysmal atrial fibrillation Instructions: AFib Dc Prescriptions: No Action sertraline 50 mg tablet 50 mg PO DAILY Eliquis 5 mg tablet 5 mg PO BID Qty: 60 11RF metoprolol tartrate 25 mg tablet 25 mg PO BID Qty: 180 3RF Primary Care Provider: Kenneth Vela Referrals: Ole Moss MD [Med Staff - Active Staff, Cardiology] - 1 Day Kenneth Vela MD [Primary Care Provider, Medical] Activity Restrictions/Additional Instructions: Call your cardiology office tomorrow for follow-up and further recommendations. Your evaluation in the Emergency Department did not reveal any acute reason for admission. However, I want to emphasize that you may be early in the course of a disease process or illness even if it is not present. For this reason you should follow-up within 24 hours for reevaluation with either your primary care physician or if necessary back here in the Emergency Department. You should return to the Emergency Department immediately if your symptoms worsen or new symptoms develop. Print Language: [place] Disposition Disposition: Home, Self Care Discharge Date/Time: 08/02/25 22:36
[2025-08-02 21:14] VITALS: O2SAT 96
[2025-08-02] MEDS: 0.9% Normal Saline (1000mL) 1,000 ML 1000 ML IV (21:19)
[2025-08-02 21:22] LABS: Anion Gap 8 (5-15); BUN 14 mg/dL (4-19); BUN/Creat Ratio 12.9 RATIO (10-20); Calcium,Total 8.9 mg/dL (7.6-11.0); Carbon Dioxide 24.5 mmol/L (21.0-32.0); Chloride 105 mmol/L (98-108); Estimated Creatinine Clearance 98.08 ml/min (50-250); Glucose 122 mg/dL (70-99); Potassium 4.2 mmol/L (3.3-5.1); Troponin T High Sensitivity 16 ng/L (<=22)
--- NOTE | 2025-08-02 21:23 | RAD_ITS ---
PROCEDURE: CHEST 1 VIEW (PORTABLE) 08/02/2025 REASON FOR EXAM: CHEST PAIN TECHNIQUE: Frontal view of the chest. COMPARISON: 05/04/2025 FINDINGS: Lungs/Pleura: Clear. No pneumothorax or sizable pleural effusion. Heart/Mediastinum: Within normal limits. Bones/Soft tissues: No significant abnormality. RAD/Chest 1 View (Portable) IMPRESSION: No acute cardiopulmonary disease. Reading Location: [id number]
--- OUTSIDE RECORDS SUMMARY | 2025-08-02 21:38 | XMS RPT_ITS | CCD ---
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 patient in pain?: No Allergies Iodinated Contrast Media (CONTRASTS) Adverse Reaction (Verified 05/28/25 11:07) Other Medications ???Medication ???Instructions ???Recorded ???Confirmed ???Type metoprolol tartrate 25 mg tablet 25 mg PO BID 30 days #60 tabs 04/0905/28/25 Rx sertraline 50 mg tablet 50 mg PO DAILY 05/04/25 05/28/25 H istory apixaban 5 mg tablet (Eliquis) 5 mg PO BID #60 tabs 05/30/25 Rx Ejection fraction %: 60 Have you fallen in the past year?: No PFSH Medical History Paroxysmal atrial fibrillation Hypersomnia Chest [...] type: does not use ROS Const Const: Negative for fatigue, weakness, headache(s) or frequent falls Eyes Eyes: Negative for blurry vision ENT ENT: Negative for headache(s), dizziness or Nosebleed/epistaxis Cardio Chest Pain: No Palpitations: No Edema: None Muscle aches with walking: None Resp Respiratory: Negative for SOB with activity, SOB at rest or SOB orthopnea SOB lying down GI GI: Negative nausea, vomiting, heartburn, bright, red blood in stools or black,tarry stools : Negative for hematuria Neuro Neuro: Negative for dizziness, lightheadedness, near syncope, syncope, frequent falls, headache(s), weakness or blurry vision Endo Endo: Negative for fatigue Cardiology Exam Const Appearance: cooperative, comfortable, no acute distress and well developed; Negative diaphoretic or ill appearing Nutritional Appearance: obese Orientation: alert and oriented x3 (more content not included)... Normal [facility] Absolute lymphocyte countOrd ered By: [facility] on 05-04-2025 Lymphocytes Auto (Unsp spec) [#/Vol] 3.19 10*3/uL 0.83-4.51 [facility] Absolute neutrophil countOrd ered By: [facility] on 05-04-2025 Neutrophils (Bld) [#/Vol] 2.9 10*3/uL 2.0-7.7 [facility] Anion gap in Serum or Plasma Ordered By: [facility] on 05-04-2025 Anion gap [Moles/Vol] 12 mmol/L 03-22 [facility] Automated lymphocyte count a s percentage of total leukocytesOrdered By: Fleming GalileaAngel on 05-04-2025 Lymphocytes/100 WBC Auto (Unsp spec) 48.3 % High 19-41 [facility] BUN/creatinine ratioOrdered By: [facility] on 05-04-2025 Urea nitrogen/Creatinine [Mass ratio] 15.7 mg/mg 10-20 [facility] Basic Metabolic Profile (BMP )on 05-04-2025 CO2 [Moles/Vol] 23.2 mmol/L Normal 21.0-32.0 [facility] Comment on above: Performed By: #### L 500.2500, L501.4021, L501.5200, L503.7505, L100.0100 ####[facility] [address] [place], [address] GAP 12 Normal - [facility] Comment on above: Performed By: #### L 500.2500, L501.4021, L501.5200, L503.7505, L100.0100 ####[facility] [address] [place], [address] Basophil percentageOrdered B y: Morro WilcoxAleidat on 05-04-2025 Basophils/100 WBC (Bld) 0.9 % 0-1 [facility] CBC W/Diff, Automatedon 04-09 Absolute Lymph 3.19 X10 3/uL Normal 0.83-4.51 [facility] Comment on above: Performed By: #### L 500.2500, L501.4021, L501.5200, L503.7505, L100.0100 #### [facility] [address] [place], [address] Absolute Neut 2.9 X10 3/uL Normal 2.0-7.7 [facility] Comment on above: Performed By: #### L 500.2500, L501.4021, L501.5200, L503.7505, L100.0100 #### [facility] [address] [place], [address] Basophils/100 WBC (Bld) 0.9 % Normal 0-1 [facility] Comment on above: Performed By: #### L 500.2500, L501.4021, L501.5200, L503.7505, L100.0100 #### [facility] [address] [place], [address] Eosinophils/100 WBC (Bld) 1.7 % Normal 0-5 [facility] Comment on above: Performed By: #### L 500.2500, L501.4021, L501.5200, L503.7505, L100.0100 #### [facility] [address] [place], [address] Erythrocyte distribution width (RBC) [Ratio] 13.5 % Normal 11.6-14.6 [facility] Comment on above: Performed By: #### L 500.2500, L501.4021, L501.5200, L503.7505, L100.0100 #### [facility] [address] [place], [address] Hematocrit (Bld) [Volume fraction] 45.2 % Normal 40-54 [facility] Comment on above: Performed By: #### L 500.2500, L501.4021, L501.5200, L503.7505, L100.0100 #### [facility] [address] [place], [address] Hemoglobin (Bld) [Mass/Vol] 15.5 g/dL Normal 13.0-16.5 [facility] Comment on above: Performed By: #### L 500.2500, L501.4021, L501.5200, L503.7505, L100.0100 #### [facility] [address] [place], [address] IG% 0.500 Normal 0.0-0.9 [facility] Comment on above: Result Comment: IG% - Immature Granulocytes (promyelocytes, myelocytes and metamyelocytes) > 1% indicates that a LEFT SHIFT is Present. Performed By: #### L 500.2500, L501.4021, L501.5200, L503.7505, L100.0100 #### [facility] [address] [place], [address] Lymphocytes/100 WBC (Bld) 48.3 % High 19-41 [facility] Comment on above: Performed By: #### L 500.2500, L501.4021, L501.5200, L503.7505, L100.0100 #### [facility] [address] [place], [address] MCH (RBC) [Entitic mass] 31.4 pg Normal 27.0-32.0 [facility] Comment on above: Performed By: #### L 500.2500, L501.4021, L501.5200, L503.7505, L100.0100 #### [facility] [address] [place], [address] MCHC (RBC) [Mass/Vol] 34.3 g/dL Normal 32-36 [facility] Comment on above: Performed By: #### L 500.2500, L501.4021, L501.5200, L503.7505, L100.0100 #### [facility] [address] [place], [address] MCV (RBC) [Entitic vol] 91.7 fL Normal 80-94 [facility] Comment on above: Performed By: #### L 500.2500, L501.4021, L501.5200, L503.7505, L100.0100 #### [facility] [address] [place], [address] Monocytes/100 WBC (Bld) 4.5 % Normal 0-10 [facility] Comment on above: Performed By: #### L 500.2500, L501.4021, L501.5200, L503.7505, L100.0100 #### [facility] [address] [place], [address] Neutrophils/100 WBC (Bld) 44.1 % Low 47-70 [facility] Comment on above: Performed By: #### L 500.2500, L501.4021, L501.5200, L503.7505, L100.0100 #### [facility] [address] [place], [address] Nucleated RBC (Bld) [#/Vol] 0 10*3/uL Normal 0-5 [facility] Comment on above: Performed By: #### L 500.2500, L501.4021, L501.5200, L503.7505, L100.0100 #### [facility] [address] [place], [address] Platelet mean volume (Bld) [Entitic vol] 10.7 fL Normal 6.2-12.0 [facility] Comment on above: Performed By: #### L 500.2500, L501.4021, L501.5200, L503.7505, L100.0100 #### [facility] [address] [place], [address] Platelets (Bld) [#/Vol] 227 10*3/uL Normal 150-450 [facility] Comment on above: Performed By: #### L 500.2500, L501.4021, L501.5200, L503.7505, L100.0100 #### [facility] [address] [place], [address] RBC (Bld) [#/Vol] 4.93 10*6/uL Normal 4.6-6.2 [facility] Comment on above: Performed By: #### L 500.2500, L501.4021, L501.5200, L503.7505, L100.0100 #### [facility] [address] [place], [address] RDW SD 45.6 fl High 35.1-43.9 [facility] Comment on above: Performed By: #### L 500.2500, L501.4021, L501.5200, L503.7505, L100.0100 #### [facility] [address] [place], [address] WBC (Bld) [#/Vol] 6.6 10*3/uL Normal 4.4-11.0 [facility] Comment on above: Performed By: #### L 500.2500, L501.4021, L501.5200, L503.7505, L100.0100 #### [facility] [address] [place], [address] Carbon dioxide, total [Moles /volume] in Central venous bloodOrdered By: Morro Hodges on 05-04-2025 CO2 [Moles/Vol] 23.2 mmol/L 21.0-32.0 [facility] Chest PA and Lateralon 05-04 Chest PA and Lateral [facility] Imaging Services [address] [place] [address] Chest PA and Lateral MR#: [id number] Acct: [id number] Name: ROBERTO DE LA CRUZ Rep #: [id number] : 1960 M 64 From: Ryland Sosa MD PCP: Dr. Kenneth Beckett MD Status: [facility] ER Study: Chest PA and Lateral Date of Exam: 05/04/25 Exam# [id number] Ordering Dr: Morro Hodges DO PROCEDURE: CHEST PA AND LATERAL 05/04/2025 REASON FOR EXAM: CHEST PAIN TECHNIQUE: CHEST PA AND LATERAL COMPARISON: 04/30/2025 FINDINGS: Normal heart size. Well inflated lungs. No consolidation, effusion, or pneumothorax. RAD/Chest PA and Lateral IMPRESSION: No acute chest findings Reading Location: [place] [address] CC: Dr. Morro Hodges DO; Dr. Kenneth Beckett MD Cat Scan Tech: Signed Normal [facility] Chloride assayOrdered By: Mo Hodges on 05-04-2025 Chloride [Moles/Vol] 101 mmol/L 98-108 [place] [facility] Summary on 05-04-2025 Emergency Department Summary [facility] Medical Records Department [address] [place] [address] Emergency Department Summary 05/04/25 MR#: [id number] Acct: [id number] Name: ROBERTO DE LA CRUZ Rep #: [id number] : 1960 64 From: Morro Hodges DO PCP: Dr. Kenneth Beckett MD Status:REG ER Location: ED HPI History of Present Illness Chief Complaint: General Illness Narrative Narrative: Chief complaint and HPI: Chest pain. 64-year-old male with proximal atrial fibrillation on Eliquis with history of cardioversion presents for evaluation of chest pain. History taken by patient as well as medical record. Patient was recently off all of his medications for atrial fibrillation until recently when he was found in atrial fibrillation with RVR. He was seen in our emergency department on 04/30/2025. At that time was rate controlled with IV labetalol. Cardiology was consulted and plan was for metoprolol 50 mg twice daily as well as Eliquis. Plan to follow-up outpatient in office. Patient followed up with cardiology on 05/02. I reviewed the note. Plan is for pharmacological nuclear stress test and cardioversion once anticoagulated for 30 days. Also had thyroid function test ordered. Previous stress echo was in 2019 showed an EF of 65%. And negative for ischemia. Patient states this evening he was outside cleaning the windows when he became lightheaded, diaphoretic, and fatigued. He went inside and his checked his blood pressure and states that his SBP was in the 80s and he was tachycardic in the 110s. He states he then took a long nap. Patient states he is just felt generally fatigued all day. States his evening he developed chest pain which is why presents. Chest pain resulted in the car. He denies any fever, chills, shortness of breath, abdominal pain, nausea, vomiting. Review of systems: See HPI Medications: As listed on the chart Allergies: As listed on the chart PFSH: Per chart Vital signs: As listed on the chart. Reviewed. Physical exam: Gen: A O x3, NAD Head: Normocephalic, atraumatic Eyes: No sclera icterus, conjunctiva clear ENT: Moist mucous membranes Neck: Trachea midline, No JVD CV: Irregular irregular rhythm, normal rate, no murmurs, no peripheral edema Resp: Lungs CTA BL, no w/r/c GI: Abd soft, non-distended, non-tender, no r/r/g Musc: Full ROM, no deformity Skin: Warm, dry Neuro: Alert, oriented, grossly intact, sensation intact Psych: Cooperative, appropriate mood and affect [facility] Medical History Paroxysmal atrial fibrillation Hypersomnia Chest pain New onset atrial fibrillation Acute cholecystitis Acute renal insufficiency MRSA infection right ring finger infection Tenosynovitis of finger Home Medications ???Medication ???Instructions ???Recorded ???Last Taken ???Type apixaban 5 mg tablet (Eliquis) 5 mg PO BID #60 tabs 04/30/25 Unkn own Rx metoprolol tartrate 25 mg tablet 25 mg PO BID 30 days #60 tabs 04/09 06/01 Unknown Rx sertraline 50 mg tablet 50 mg PO DAILY 05/04/25 Unknown Hi story Allergy/AdvReac Type Severity Reaction Status Date / Time Iodinated Contrast Media AdvReac Other Verified 05/04/25 03:21 (CONTRASTS) Family History Mother Alzheimer's disease Father Brain tumor S/P lobectomy of lung S/p nephrectomy Cancer Brother COPD (chronic obstructive pulmonary disease) Sister Alzheimer's disease Surgical History History of cardioversion (01/03/20) History of tonsillectomy and adenoidectomy History of colonoscopy (11/27/16) history of finger surgery History of cholecystectomy (06/20/19) Social History household members: spouse Smoking Status: Never smoker substance use type: does not use EXAM Physical Exam Const Vital Signs: 05/04/25 03:22 05/04/25 03:22 05/04/25 03:28 Temperature 97.7 F L Temperature Source Oral Pulse Rate 64 Respiratory Rate 16 Respiratory Effort Normal Non-Labored Normal Non-Labored Respiratory Pattern Irregular Blood Pressure 114/85 H Blood Pressure Mean 94 Pulse Ox 98 Oxygen Delivery Method Room Air 05/04/25 05:21 Temperature Temperature Source Pulse Rate 73 Respiratory Rate 15 Respiratory Effort Respiratory Pattern Blood Pressure 112/86 H Blood Pressure Mean 94 Pulse Ox 94 Oxygen Delivery Method Room Air MDM MDM MDM Narrative Medical decision making narrative: 64-year-old male with proximal atrial fibrillation on Eliquis with history of cardioversion presents for evaluation of chest pain. Associated symptoms are intermittent hypotension, fati (more content not included)... Normal [facility] Eosinophil percentageOrdered By: [facility] on 05-04-2025 Eosinophils/100 WBC (Bld) 1.7 % 0-5 [facility] Erythrocyte distribution wid th ratioOrdered By: [facility]eAngel on 05-04-2025 Erythrocyte distribution width (RBC) [Ratio] 13.5 % 11.6-14.6 [facility] Erythrocyte distribution wid th standard deviationOrdered By: [facility] on 05-04-2025 Erythrocyte distribution width (RBC) [Ratio] 45.6 fl High 35.1-43.9 [facility] Glomerular filtration rate ( GFR) estimation/1.73 sq m using serum, plasma, or whole bOrdered By: [facility]hrmcMichael on 05-04-2025 GFR/1.73 sq M.predicted among non-blacks MDRD (S/P/Bld) [Vol rate/Area] 79 mL/min/{1.73_m2} >60 [facility] Comment on above: mL/min/1.73m2 CKD-EP I Creatinine Equation (2020) Hematocrit Auto (Bld) [Volum e fraction]Ordered By: [facility]Angel on 05-04-2025 Hematocrit (Bld) [Volume fraction] 45.2 % 40-54 [facility] Hemoglobin measurementOrdere d By: [facility]Angel on 05-04-2025 Hemoglobin (Bld) [Mass/Vol] 15.5 g/dL 13.0-16.5 [facility] Immature granulocytes/100 WB C Auto (Bld)Ordered By: [facility] on 05-04-2025 Immature granulocytes/100 WBC (Bld) 0.500 % 0.0-0.9 [facility] Comment on above: IG% - Immature Granu locytes (promyelocytes, myelocytes and metamyelocytes) > 1% indicates that a LEFT SHIFT is Present. L499.0042on 05-04-2025 Trop T High Sen 8 ng/L Normal <=22 [facility] Comment on above: Performed By: #### L 499.0042 ####[facility] [address] [place], [address] L501.4021on 05-04-2025 Trop T High Sen 8 ng/L Normal <=22 [facility] Comment on above: Performed By: #### L 500.2500, L501.4021, L501.5200, L503.7505, L100.0100 #### [facility] [address] [place], [address] L503.7505on 05-04-2025 Natriuretic peptide B (Bld) [Mass/Vol] 957 pg/mL High <=900 [facility] Comment on above: Result Comment: Hear t Failure Unlikely: < 300 pg/mL Heart Failure Likely < 50 Years: > 450 pg/mL 50-75 Years: > 900 pg/mL >75 Years: > 1800 pg/mL Performed By: #### L 500.2500, L501.4021, L501.5200, L503.7505, L100.0100 #### [facility] [address] [place], [address] MCV (mean corpuscular volume ) determinationOrdered By: Morro Hodges on 05-04-2025 MCV (RBC) [Entitic vol] 91.7 fL 80-94 [facility] Magnesiumon 05-04-2025 Magnesium [Mass/Vol] 2.2 mg/dL Normal 1.5-2.2 [place] Comment on above: Performed By: #### L 500.2500, L501.4021, L501.5200, L503.7505, L100.0100 #### [facility] [address] [place], [address] Magnesium measurement (mass/ volume)Ordered By: Morro Hodges on 05-04-2025 Magnesium (Unsp spec) [Mass/Vol] 2.2 mg/dL 1.5-2.2 [facility] Mean corpuscular hemoglobin (MCH) determinationOrdered By: Morro Hodges on 05-04-2025 MCH (RBC) [Entitic mass] 31.4 pg 27.0-32.0 [facility] Mean corpuscular hemoglobin concentration (MCHC) determinationOrdered By: Morro Hodges on 05-04-2025 MCHC (RBC) [Mass/Vol] 34.3 g/dL 32-36 [facility] Mean platelet volume determi nationOrdered By: Morro Hodges on 05-04-2025 Platelet mean volume (Bld) [Entitic vol] 10.7 fL 6.2-12.0 [facility] Monocyte percentageOrdered B y: Morro Hodges on 05-04-2025 Monocytes/100 WBC (Bld) 4.5 % 0-10 [facility] Natriuretic peptide.B prohor garth N-Terminal [Mass/volume] in Serum or PlasmaOrdered By: Morro Hodges on 05-04-2025 Natriuretic peptide.B prohormone N-Terminal [Mass/Vol] 957 pg/mL High <900 [facility] Comment on above: Heart Failure Unlike ly: < 300 pg/mLHeart Failure Likely< 50 Years: > 450 pg/mL50-75 Years: > 900 pg/mL>75 Years: > 1800 pg/mL Neutrophil percentageOrdered By: Morro Hodges on 05-04-2025 Neutrophils/100 WBC (Bld) 44.1 % Low 47-70 [facility] Nucleated red blood cell per centageOrdered By: Morro Hodges on 05-04-2025 Nucleated RBC/100 WBC (Bld) [Ratio] 0 % 0-5 [facility] Platelet countOrdered By: Mo Hodges on 05-04-2025 Platelets (Bld) [#/Vol] 227 10*3/uL 150-450 [facility] Potassium measurement (mass/ volume)Ordered By: Morro Hodges on 05-04-2025 Potassium (Unsp spec) [Mass/Vol] 4.3 mmol/L 3.3-5.1 [facility] RBC Auto (Bld) [#/Vol]Ordere d By: Morro Hodges on 05-04-2025 RBC (Bld) [#/Vol] 4.93 10*6/uL 4.6-6.2 [facility] Serum creatinine measurement (mass/volume)Ordered By: Morro Hodges on 05-04-2025 Creatinine [Mass/Vol] 1.06 mg/dL 0.70-1.20 [facility] Serum glucose measurement (m ass/volume)Ordered By: Morro Hodges on 05-04-2025 Glucose [Mass/Vol] 123 mg/dL High 70-99 [facility] Serum or plasma calcium charles urement (mass/volume)Ordered By: Morro Ortiz on 05-04-2025 Calcium [Mass/Vol] 9.4 mg/dL 7.6-11.0 [facility] Serum or plasma urea nitroge n measurement (mass/volume)Ordered By: Morro Hodges on 05-04-2025 Urea nitrogen [Mass/Vol] 17 mg/dL 4-19 [facility] Sodium levelOrdered By: Fernandez Hodges on 05-04-2025 Sodium [Moles/Vol] 136 mmol/L 133-145 [facility] Troponin T.cardiac [Mass/vol ume] in Serum or Plasma by High sensitivity methodOrdered By: Morro Hodges on 05-04-2025 Troponin T.cardiac High sensitivity method [Mass/Vol] 8 ng/L <22 [facility] Troponin T.cardiac High sensitivity method [Mass/Vol] 8 ng/L <22 [facility] White blood cell (WBC) count Ordered By: Morro Hodges on 05-04-2025 WBC (Bld) [#/Vol] 6.6 10*3/uL 4.4-11.0 [facility] Cardiology Visit Reporton Cardiology Visit Report [facility] [address] [place], [place] [address]. [address] [place] [address] OFFICE VISIT Date of Service: 05/02/25 MR#: [id number] Acct: [id number] Name: ROBERTO DE LA CRUZ Rep #: [id number] : 1960 Provider: ANGELITO Hammond Age/Sex: 64/M Location: [facility] Status: Signed Agree with assessment and plan as outlined. HPI HPI History of Present Illness Details: Roberto De La Cruz is a 64-year-old male who presents today for emergency room follow-up. Patient has a history of paroxysmal atrial fibrillation that occurred at the time of drinking a high amount of caffeine along with being acutely ill with bronchitis in 2019. He was not aware that he was in atrial fibrillation at that time as it was picked up on physical exam. He was anticoagulated and underwent cardioversion and did not have any known recurrence. He was discontinued off his medications. He was last seen in office 01/15/2025, EKG demonstrated normal sinus rhythm at 62 bpm On April, patient was doing yard work, he did not feel well, took a prolonged nap in the middle day and was unable to return to doing yard work. His pulse was noted to be elevated on home monitor; however, blood pressure was stable. He followed up with his primary care doctor on April 30 and was noted to have an irregular heart rate with low blood pressure and was instructed to present to the emergency department. EKG in the emergency department on 04/30/2025 demonstrated atrial fibrillation with RVR at a rate of 143 bpm. On-call mule driver was consulted. Patient was given metoprolol with improvement in his rate. He was discharged home on metoprolol tartrate 50 mg twice daily and initiated on anticoagulation with Eliquis 5 mg twice daily. Upon presentation to office today, patient reports feeling much improved with his rate controlled. He notices some very mild, what is described as chronic fatigue. He feels he is back to his baseline. EKG today demonstrates atrial fibrillation at a rate of 70 bpm. He does note that he experiences shortness of breath with walking up hills but associates this with age. He can tolerate climbing a flight of stairs without concerns. Further ROS below. Intake Vital Signs 04/30/25 15:04 05/02/25 07:05 Height 6 ft 2 in 6 ft 2 in Weight: 260 lb BMI 33.3 BP 117/77 Blood Pressure Location Lt brachial Position Sitting Respiration 18 Pulse 76 Pulse Source Monitor Pulse Oximetry (%) 95 Intake Visit Reasons: S/P [facility] 04/30 Knitting Inspector Required: No Is patient in pain?: No Allergies Iodinated Contrast Media (CONTRASTS) Adverse Reaction (Verified 05/04/25 03:21) Other Medications ???Medication ???Instructions ???Recorded ???Confirmed ???Type apixaban 5 mg tablet (Eliquis) 5 mg PO BID #60 tabs 04/30/2504/09 Rx metoprolol tartrate 25 mg tablet 25 mg PO BID 30 days #60 tabs 04/09 06/01 Rx sertraline 50 mg tablet 50 mg PO DAILY 05/04/25 05/04/25 H istory Ejection fraction %: 60 Have you fallen in the past year?: No Nurse's Note: patient on antidepressant med but does not know name of it. [facility] Medical History Paroxysmal atrial fibrillation Hypersomnia Chest [...] not use ROS Const Const: Positive for fatigue (mild); Negative for weakness, headache(s) or frequent falls Eyes Eyes: Negative for blurry vision ENT ENT: Negative for headache(s), dizziness or Nosebleed/epistaxis Cardio Chest Pain: No Palpitations: No Edema: None Muscle aches with walking: None Resp Respiratory: Negative for SOB with activity, SOB at rest or SOB orthopnea SOB lying down GI GI: Negative nausea, vomiting, heartburn, bright, red blood in stools or black,tarry stools : Negative for hematuria Neuro Neuro: Negative for dizziness, lightheadedness, near syncope, syncope, frequent falls, headache(s), weakness or blurry vision Endo Endo: Positive for fatigue (mi (more content not included)... Normal [facility] TSH DL <= 0.005 mIU/L QnOrde red By: Shashi Yeh on 05-02-2025 TSH Qn 3.320 uIU/mL 0.300-4.200 [facility] Thyroid Stim Hormone (TSH)on 05-02-2025 TSH 3.320 uIU/mL Normal 0.300-4.200 [facility] Comment on above: Performed By: #### L 501.9520 #### [facility] Laboratory [address] [place] [address], [address] 12 Lead EKGon 04-30-2025 12 Lead EKG [facility] Cardiovascular Services [address] [place] [address] 12 Lead EKG 04/30/25 1513 MR#: [id number] Acct: [id number] Name: ROBERTO DE LA CRUZ Rep #: [id number] : 1960 64 From: Arben Mcneil MD [...] Abnormal ECG Confirmed by ARBEN MCNEIL MD ([id number]), department editor BRIANNE BRAUN ([id number]) on 05/01/2025 11:14:29 AM Referred By: Lee Jaeger Confirmed By: ARBEN MCNEIL MD 05/01/25 1114 Date Arben Mcneil MD CC: Dr. Lee Jaeger MD; Dr. Kenneth Beckett MD Signed Normal [facility] Absolute lymphocyte countOrd ered By: Lee Jaeger on 04-30-2025 Lymphocytes Auto (Unsp spec) [#/Vol] 2.86 10*3/uL 0.83-4.51 [facility] Absolute neutrophil countOrd ered By: Lee Jaeger on 04-30-2025 Neutrophils (Bld) [#/Vol] 4.4 10*3/uL 2.0-7.7 [facility] Anion gap in Serum or Plasma Ordered By: Lee Jaeger on 04-30-2025 Anion gap [Moles/Vol] 10 mmol/L 5-15 [facility] Automated blood erythrocyte countOrdered By: Lee Jaeger on 04-30-2025 RBC (Bld) [#/Vol] 5.18 10*6/uL Normal 4.6-6.2 [facility] Comment on above: Performed By: #### L 501.5200, L500.4050, L100.0100 #### [facility] Laboratory [address] [facility] [place], [address] Automated blood hematocrit ( percentage)Ordered By: Lee Jaeger on 04-30-2025 Hematocrit (Bld) [Volume fraction] 47.6 % Normal 40-54 [facility] Comment on above: Performed By: #### L 501.5200, L500.4050, L100.0100 #### [facility] Laboratory [address] [place], [address] Automated lymphocyte count a s percentage of total leukocytesOrdered By: Lee Jaeger on 04-30-2025 Lymphocytes/100 WBC Auto (Unsp spec) 37.0 % - [facility] BUN/creatinine ratioOrdered By: Lee Jaeger on 04-30-2025 Urea nitrogen/Creatinine [Mass ratio] 19.4 mg/mg 10-20 [facility] Basophil percentageOrdered B y: Lee Jaeger on 04-30-2025 Basophils/100 WBC (Bld) 0.9 % Normal 0-1 [facility] Comment on above: Performed By: #### L 501.5200, L500.4050, L100.0100 #### [facility] Laboratory [address] [place], [address] Bilirubin, totalOrdered By: Lee Jaeger on 04-30-2025 Bilirubin [Mass/Vol] 0.68 mg/dL Normal 0.00-1.30 [place] Comment on above: Performed By: #### L 501.5200, L500.4050, L100.0100 #### [facility] Laboratory [address] [place], [address] CBC W/Diff, Automatedon 04-09 Absolute Lymph 2.86 X10 3/uL Normal 0.83-4.51 [facility] Comment on above: Performed By: #### L 501.5200, L500.4050, L100.0100 #### [facility] Laboratory [address] [place], [address] Absolute Neut 4.4 X10 3/uL Normal 2.0-7.7 [facility] Comment on above: Performed By: #### L 501.5200, L500.4050, L100.0100 #### [facility] Laboratory [address] [place], [address] IG% 0.400 Normal 0.0-0.9 [facility] Comment on above: Result Comment: IG% - Immature Granulocytes (promyelocytes, myelocytes and metamyelocytes) > 1% indicates that a LEFT SHIFT is Present. Performed By: #### L 501.5200, L500.4050, L100.0100 #### [facility] Laboratory [address] [place], [address] Lymphocytes/100 WBC (Bld) 37.0 % Normal 19-41 [facility] Comment on above: Performed By: #### L 501.5200, L500.4050, L100.0100 #### [facility] Laboratory [address] [place], [address] Nucleated RBC (Bld) [#/Vol] 0 10*3/uL Normal 0-5 [facility] Comment on above: Performed By: #### L 501.5200, L500.4050, L100.0100 #### [facility] Laboratory [address] [place], [address] RDW SD 46.1 fl High 35.1-43.9 [facility] Comment on above: Performed By: #### L 501.5200, L500.4050, L100.0100 #### [facility] Laboratory [address] [place], [address] CNOVon 04-30-2025 CNOV Office Visit (MARIA ELENAWS ) ROBERTO DE LA CRUZ ([id number]) 1960 M Date Time Provider Department 04/30/25 2:20 PM [facility] During your visit today, we recorded the following information about you: Temperature Pulse Respiration Blood pressure 98 degrees 127/minute 16/minute 95/47 Yennifer Worrell APRN.DOCUMENT MANAGEMENT ANALYST 04/30/2025 3:03 PM Signed This is a [...] 127. Hypotensive -- 95/47. Will refer to [facility] for further eval and treatment. [...] or as needed for worsening/no improvement. Yennifer Worrell, BEHAVIORAL HEALTH CLINICIAN.DOCUMENT MANAGEMENT ANALYST Recording using a (more content not included)... Normal [facility] Carbon dioxide, total [Moles /volume] in Central venous bloodOrdered By: Lee Jaeger on 04-30-2025 CO2 [Moles/Vol] 22.0 mmol/L Normal 21.0-32.0 [facility] Comment on above: Performed By: #### L 501.5200, L500.4050, L100.0100 #### [facility] Laboratory [address] [place], [address] Chest 1 View (Portable)on Chest 1 View (Portable) [facility] Imaging Services [address] [place] [address] Chest 1 View (Portable) MR#: [id number] Acct: [id number] Name: ROBERTO DE LA CRUZ Rep #: [id number] : 1960 M 64 From: Alessandro Luna PCP: Dr. Kenneth Beckett MD Status: REG ER Study: Chest 1 View (Portable) Date of Exam: 04/30/25 Exam# [id number] Ordering Dr: Lee Jaeger MD PROCEDURE: CHEST 1 VIEW (PORTABLE) 04/30/2025 REASON FOR EXAM: DYSRHYTHMIA TECHNIQUE: Frontal view of the chest. COMPARISON: 12/06/2019 FINDINGS: No focal consolidation. No pleural effusion or pneumothorax. Cardiac silhouette is within normal limits. RAD/Chest 1 View (Portable) IMPRESSION: No focal consolidations. Reading Location: [facility] CC: Dr. Lee Jaeger MD; Dr. Kenneth Beckett MD Cat Scan Tech: Signed Normal [facility] Chloride assayOrdered By: Yung Jaeger on 04-30-2025 Chloride [Moles/Vol] 105 mmol/L Normal 98-108 [place] Comment on above: Performed By: #### L 501.5200, L500.4050, L100.0100 #### [facility] Laboratory [address] [place], [address] Comprehensive Metabolic Prof ilon 04-30-2025 ALK PHOS 75 U/L Normal 40-129 [facility] Comment on above: Performed By: #### L 501.5200, L500.4050, L100.0100 #### [facility] Laboratory [address] [place], [address] BUN/CRE 19.4 RATIO Normal 10-20 [facility] Comment on above: Performed By: #### L 501.5200, L500.4050, L100.0100 #### [facility] Laboratory [address] [place], [address] ECRCL 88.81 ml/min Normal 50-250 [facility] Comment on above: Performed By: #### L 501.5200, L500.4050, L100.0100 #### [facility] Laboratory [address] [place], [address] GAP 10 Normal 5-15 [facility] Comment on above: Performed By: #### L 501.5200, L500.4050, L100.0100 #### [facility] Laboratory [address] [place], [address] Potassium [Moles/Vol] 4.6 mmol/L Normal 3.3-5.1 [facility] Comment on above: Result Comment: Hemo lysis present, Results??could be affected. ?? Performed By: #### L 501.5200, L500.4050, L100.0100 #### [facility] Laboratory [address] [place], [address] T PROT 6.5 g/dL Normal 5.9-8.4 [facility] Comment on above: Performed By: #### L 501.5200, L500.4050, L100.0100 #### [facility] Laboratory [address] [place], [address] Comprehensive Metabolic Prof ilOrdered By: Lee Jaeger on 04-30-2025 AST [Catalytic activity/Vol] 28 U/L Normal <=37 [facility] Comment on above: Hemolysis present, R esults could be affected. Result Comment: Hemo lysis present, Results??could be affected. ?? Performed By: #### L 501.5200, L500.4050, L100.0100 #### [facility] Laboratory [address] [place], [address] [id number] 04-30-2025 ECG01 Ventricular Rate : 1 27 BPM QRS Duration : 86 ms Q-T Interval : 296 ms QTC Calculation(Bazett) : 430 ms Calculated R Halls : 13 degrees Calculated T Halls : 57 degrees ATRIAL FIBRILLATION WITH RAPID VENTRICULAR RESPONSE WITH PREMATURE VENTRICULAR COMPLEXES ABNORMAL ECG Confirmed by MD CUEVAS QARAB ([id number]) on 05/01/2025 1:25:58 PM NAME : ROBERTO DE LA CRUZ PID : [id number] : 1960 Gender : Male Race : ORD : Procedure Date : Apr 30 2025 14:45:36 Edit Date : May 01 2025 13:26:05 Diagnosis: ATRIAL FIBRILLATION WITH RAPID VENTRICULAR RESPONSE WITH PREMATURE VENTRICULAR COMPLEXES ABNORMAL ECG Confirmed by MD CUEVAS QARAB ([id number]) on 05/01/2025 1:25:58 PM Test Reason : Location : 136 : [facility] Overread By : MD CUEVAS QARAB Edited By : MD CUEVAS QARAB Referred By : Yennifer Worrell Acquired by : karthik cote Normal [facility] Emergency Department Summary on 04-30-2025 Emergency Department Summary [facility] Medical Records Department [address] [place] [address] Emergency Department Summary 04/30/25 MR#: [id number] Acct: [id number] Name: ROBERTO DE LA CRUZ Rep #: [id number] : 1960 64 From: Lee Jaeger MD [...] He followed up with Dr. Mansfield with [place] [facility], who took him off all [...] to be in atrial fibrillation with RVR. [facility] Medical History Paroxysmal atrial fibrillation Hypersomnia Chest [...] with creati (more content not included)... Normal [facility] Eosinophil percentageOrdered By: Lee Jaeger on 04-30-2025 Eosinophils/100 WBC (Bld) 1.2 % Normal 0-5 [facility] Comment on above: Performed By: #### L 501.5200, L500.4050, L100.0100 #### [facility] Laboratory [address] [place], [place], [address] Erythrocyte distribution wid th ratioOrdered By: Lee Jaeger on 04-30-2025 Erythrocyte distribution width (RBC) [Ratio] 13.6 % Normal 11.6-14.6 [facility] Comment on above: Performed By: #### L 501.5200, L500.4050, L100.0100 #### [facility] Laboratory [address] [facility] [place], [address] Erythrocyte distribution wid th standard deviationOrdered By: Lee Jaeger on 04-30-2025 Erythrocyte distribution width (RBC) [Ratio] 46.1 fl High 35.1-43.9 [facility] Glomerular filtration rate ( GFR) estimation/1.73 sq m using serum, plasma, or whole bOrdered By: Lee Jaeger on 04-30-2025 GFR/1.73 sq M.predicted among non-blacks MDRD (S/P/Bld) [Vol rate/Area] 70 mL/min/{1.73_m2} Normal >60 [facility] Comment on above: mL/min/1.73m2 CKD-EP I Creatinine Equation (2020) Result Comment: mL/m in/1.73m2 CKD-EPI Creatinine Equation (2020) Performed By: #### L 501.5200, L500.4050, L100.0100 #### [facility] Laboratory [address] [facility] [place], [address] Hemoglobin measurementOrdere d By: Lee Jaeger on 04-30-2025 Hemoglobin (Bld) [Mass/Vol] 16.1 g/dL Normal 13.0-16.5 [facility] Comment on above: Performed By: #### L 501.5200, L500.4050, L100.0100 #### [facility] Laboratory [address] [place], [address] Immature granulocytes/100 WB C Auto (Bld)Ordered By: Lee Jaeger on 04-30-2025 Immature granulocytes/100 WBC (Bld) 0.400 % 0.0-0.9 [facility] Comment on above: IG% - Immature Granu locytes (promyelocytes, myelocytes and metamyelocytes) > 1% indicates that a LEFT SHIFT is Present. MCV (mean corpuscular volume ) determinationOrdered By: Lee Jaeger on 04-30-2025 MCV (RBC) [Entitic vol] 91.9 fL Normal 80-94 [facility] Comment on above: Performed By: #### L 501.5200, L500.4050, L100.0100 #### [facility] Laboratory [address] [place], [address] Magnesiumon 04-30-2025 Magnesium [Mass/Vol] 2.0 mg/dL Normal 1.5-2.2 [place] Comment on above: Performed By: #### L 501.5200, L500.4050, L100.0100 #### [facility] Laboratory [address] [place], [address] Magnesium measurement (mass/ volume)Ordered By: Lee Jaeger on 04-30-2025 Magnesium (Unsp spec) [Mass/Vol] 2.0 mg/dL 1.5-2.2 [facility] Mean corpuscular hemoglobin (MCH) determinationOrdered By: Lee Jaeger on 04-30-2025 MCH (RBC) [Entitic mass] 31.1 pg Normal 27.0-32.0 [facility] Comment on above: Performed By: #### L 501.5200, L500.4050, L100.0100 #### [facility] Laboratory [address] [place], [address] Mean corpuscular hemoglobin concentration (MCHC) determinationOrdered By: Lee Jaeger on 04-30-2025 MCHC (RBC) [Mass/Vol] 33.8 g/dL Normal 32-36 [facility] Comment on above: Performed By: #### L 501.5200, L500.4050, L100.0100 #### [facility] Laboratory [address] [place], [address] Mean platelet volume determi nationOrdered By: Lee Jaeger on 04-30-2025 Platelet mean volume (Bld) [Entitic vol] 10.2 fL Normal 6.2-12.0 [facility] Comment on above: Performed By: #### L 501.5200, L500.4050, L100.0100 #### [facility] Laboratory [address] [place], [address] Monocyte percentageOrdered B y: Lee Jaeger on 04-30-2025 Monocytes/100 WBC (Bld) 4.4 % Normal 0-10 [facility] Comment on above: Performed By: #### L 501.5200, L500.4050, L100.0100 #### [facility] Laboratory [address] [place], [address] Neutrophil percentageOrdered By: Lee Jaeger on 04-30-2025 Neutrophils/100 WBC (Bld) 56.1 % Normal 47-70 [facility] Comment on above: Performed By: #### L 501.5200, L500.4050, L100.0100 #### [facility] Laboratory [address] [place], [address] Nucleated red blood cell per centageOrdered By: Lee Jaeger on 04-30-2025 Nucleated RBC/100 WBC (Bld) [Ratio] 0 % 0-5 [facility] Platelet countOrdered By: Yung Jaeger on 04-30-2025 Platelets (Bld) [#/Vol] 223 10*3/uL Normal 150-450 [facility] Comment on above: Performed By: #### L 501.5200, L500.4050, L100.0100 #### [facility] Laboratory [address] [place], [address] Potassium measurement (mass/ volume)Ordered By: Lee Jaeger on 04-30-2025 Potassium (Unsp spec) [Mass/Vol] 4.6 mmol/L 3.3-5.1 [facility] Comment on above: Hemolysis present, R esults could be affected. Serum creatinine measurement (mass/volume)Ordered By: Lee Jaeger on 04-30-2025 Creatinine [Mass/Vol] 1.17 mg/dL Normal 0.70-1.20 [facility] Comment on above: Performed By: #### L 501.5200, L500.4050, L100.0100 #### [facility] Laboratory [address] [place], [address] Serum globulin measurementOr dered By: Lee Jaeger on 04-30-2025 Globulin (S) [Mass/Vol] 2.7 g/dL Normal 2.2-4.2 [facility] Comment on above: Performed By: #### L 501.5200, L500.4050, L100.0100 #### [facility] Laboratory [address] [place], [address] Serum glucose measurement (m ass/volume)Ordered By: Lee Jaeger on 04-30-2025 Glucose [Mass/Vol] 121 mg/dL High 70-99 [facility] Comment on above: Performed By: #### L 501.5200, L500.4050, L100.0100 #### [facility] Laboratory [address] [place], [address] Serum or plasma alanine valdes otransferase (ALT) measurementOrdered By: Lee Jaeger on 04-30-2025 ALT [Catalytic activity/Vol] 24 U/L Normal <=46 [facility] Comment on above: Performed By: #### L 501.5200, L500.4050, L100.0100 #### [facility] Laboratory [address] [place], [address] Serum or plasma albumin charles urement (mass/volume)Ordered By: Lee Jaeger on 04-30-2025 Albumin [Mass/Vol] 3.8 g/dL Normal 3.4-4.8 [facility] Comment on above: Performed By: #### L 501.5200, L500.4050, L100.0100 #### [facility] Laboratory [address] [place], [address] Serum or plasma albumin/glob ulin mass ratioOrdered By: Lee Jaeger on 04-30-2025 Albumin/Globulin [Mass ratio] 1.4 {ratio} Normal 0.9-2.4 [facility] Comment on above: Performed By: #### L 501.5200, L500.4050, L100.0100 #### [facility] Laboratory [address] [place], [address] Serum or plasma alkaline michael sphatase measurementOrdered By: Lee Jaeger on 04-30-2025 ALP [Catalytic activity/Vol] 75 U/L 40-129 [facility] Serum or plasma calcium charles urement (mass/volume)Ordered By: Lee Jaeger on 04-30-2025 Calcium [Mass/Vol] 9.2 mg/dL Normal 7.6-11.0 [facility] Comment on above: Performed By: #### L 501.5200, L500.4050, L100.0100 #### [facility] Laboratory [address] [place], [address] Serum or plasma urea nitroge n measurement (mass/volume)Ordered By: Lee Jaeger on 04-30-2025 Urea nitrogen [Mass/Vol] 23 mg/dL High 4-19 [facility] Comment on above: Performed By: #### L 501.5200, L500.4050, L100.0100 #### [facility] Laboratory [address] [place], [address] Sodium levelOrdered By: Lee Jaeger on 04-30-2025 Sodium [Moles/Vol] 136 mmol/L Normal 133-145 [facility] Comment on above: Performed By: #### L 501.5200, L500.4050, L100.0100 #### [facility] Laboratory [address] [place], [address] Total proteinOrdered By: Sherlyn Jaeger on 04-30-2025 Protein [Mass/Vol] 6.5 g/dL 5.9-8.4 [facility] White blood cell (WBC) count Ordered By: Lee Jaeger on 04-30-2025 WBC (Bld) [#/Vol] 7.7 10*3/uL Normal 4.4-11.0 [facility] Comment on above: Performed By: #### L 501.5200, L500.4050, L100.0100 #### [facility] Laboratory [address] [place], [place], [address] CBC W Auto Differential pane l (Bld)on 04-23-2025 Basophils (Bld) [#/Vol] 0.07 10*3/uL Normal <0.11 [facility] Comment on above: Order Comment: Speci men Type: BLOOD SPECIMENOrdering Facility: [facility] Address: [address] [place] [address] Performed By: #### 5 7021-8 ####[facility] LABCL[facility] [id number] [place] [address] [place] Basophils/100 WBC (Bld) 1.4 % Normal C [facility] Comment on above: Order Comment: Speci men Type: BLOOD SPECIMENOrdering Facility: [facility] Address: [address] [place] [address] Performed By: #### 5 7021-8 ####[facility] [id number] [place] [address] [place] Differential cell count method Nom (Bld) Auto Normal [facility] Comment on above: Order Comment: Speci men Type: BLOOD SPECIMENOrdering Facility: [facility] Address: [address] [place] [address] Performed By: #### 5 7021-8 ####[facility]CL[facility] [id number] [place] [address] [place] Eosinophils (Bld) [#/Vol] 0.14 10*3/uL Normal <0.46 [facility] Comment on above: Order Comment: Speci men Type: BLOOD SPECIMENOrdering Facility: [facility] Address: [address] [place] [address] Performed By: #### 5 7021-8 ####[facility] [id number] [place] [address] [place] Eosinophils/100 WBC (Bld) 2.9 % Normal [facility] Comment on above: Order Comment: Speci men Type: BLOOD SPECIMENOrdering Facility: [facility] Address: [address] [place] [address] Performed By: #### 5 7021-8 ####[facility]CL[facility] [id number] [place] [address] [place] Erythrocyte distribution width (RBC) [Ratio] 13.4 % Normal 11.5-15.0 [facility] Comment on above: Order Comment: Speci men Type: BLOOD SPECIMENOrdering Facility: [facility] Address: [address] [place] [address] Performed By: #### 5 7021-8 ####[facility] LABIA [id number] [place] [address] [place] Hematocrit (Bld) [Volume fraction] 43.3 % Normal 39.0-51.0 [facility] Comment on above: Order Comment: Speci men Type: BLOOD SPECIMENOrdering Facility: [facility] Address: [address] [place] [address] Performed By: #### 5 7021-8 ####[facility] LABCLIA [id number] [place] [id number] [place] Hemoglobin (Bld) [Mass/Vol] 14.4 g/dL Normal 13.0-17.0 [facility] Comment on above: Order Comment: Speci men Type: BLOOD SPECIMENOrdering Facility: [facility] Address: [address] [place] [address] Performed By: #### 5 7021-8 ####[facility]CLIA [id number] [address] [place] [address] [place] Immature granulocytes (Bld) [#/Vol] 10*3/uL Normal <0.10 [facility] Comment on above: Order Comment: Speci men Type: BLOOD SPECIMENOrdering Facility: [facility] Address: [address] [place] [address] Performed By: #### 5 7021-8 ####[facility]CLIA [id number] [address], [facility] [place] Immature granulocytes/100 WBC (Bld) 0.4 % Normal [facility] Comment on above: Order Comment: Speci men Type: BLOOD SPECIMENOrdering Facility: [facility] Address: [address] [place] [address] Performed By: #### 5 7021-8 ####[facility] LABCLIA [id number] [address], [place] [address] [place] Lymphocytes (Bld) [#/Vol] 2.73 10*3/uL Normal 1.00-4.00 [facility] Comment on above: Order Comment: Speci men Type: BLOOD SPECIMENOrdering Facility: [facility] Address: [address] [place] [address] Performed By: #### 5 7021-8 ####[facility] LABCLIA [id number] [address], [facility] [place] Lymphocytes/100 WBC (Bld) 56.2 % Normal [facility] Comment on above: Order Comment: Speci men Type: BLOOD SPECIMENOrdering Facility: [facility] Address: [address] [place] [address] Performed By: #### 5 7021-8 ####[facility] LABCLIA [id number] [address] [place] [address] [place] MCH (RBC) [Entitic mass] 30.6 pg Normal 26.0-34.0 [facility] Comment on above: Order Comment: Speci men Type: BLOOD SPECIMENOrdering Facility: [facility] Address: [address] [place] [address] Performed By: #### 5 7021-8 ####[facility] LABCLIA [id number] [place] [address] [place] MCHC (RBC) [Mass/Vol] 33.3 g/dL Normal 30.5-36.0 [facility] Comment on above: Order Comment: Speci men Type: BLOOD SPECIMENOrdering Facility: [facility] Address: [address] [place] [address] Performed By: #### 5 7021-8 ####[facility] LABCLIA [id number] [place] [address] [place] MCV (RBC) [Entitic vol] 92.1 fL Normal 80.0-100.0 C [facility] Comment on above: Order Comment: Speci men Type: BLOOD SPECIMENOrdering Facility: [facility] Address: [address] [place] [address] Performed By: #### 5 7021-8 ####[facility] LABCLIA [id number] [place] [address] [place] Monocytes (Bld) [#/Vol] 0.21 10*3/uL Normal <0.87 [facility] Comment on above: Order Comment: Speci men Type: BLOOD SPECIMENOrdering Facility: [facility] Address: [address] [place] [address] Performed By: #### 5 7021-8 ####[facility] LABCLIA [id number] [place] [address] [place] Monocytes/100 WBC (Bld) 4.3 % Normal C [facility] Comment on above: Order Comment: Speci men Type: BLOOD SPECIMENOrdering Facility: [facility] Address: [address] [place] [address] Performed By: #### 5 7021-8 ####[facility] LABCLIA [id number] [address] [address] [place] Neutrophils (Bld) [#/Vol] 1.69 10*3/uL Normal 1.45-7.50 [facility] Comment on above: Order Comment: Speci men Type: BLOOD SPECIMENOrdering Facility: [facility] Address: [address] [place] [address] Performed By: #### 5 7021-8 ####[facility] LABCLIA [id number] [place] [address] [place] Neutrophils/100 WBC (Bld) 34.8 % Normal [facility] Comment on above: Order Comment: Speci men Type: BLOOD SPECIMENOrdering Facility: [facility] Address: [address] [place] [address] Performed By: #### 5 7021-8 ####[facility] LABCLIA [id number] [place] [address] [place] Nucleated RBC (Bld) [#/Vol] 10*3/uL Normal <0.01 [facility] Comment on above: Order Comment: Speci men Type: BLOOD SPECIMENOrdering Facility: [facility] Address: [address] [place] [address] Performed By: #### 5 7021-8 ####[facility] LABCLIA [id number] [place] [address] [place] Nucleated RBC/100 WBC (Bld) [Ratio] 0.0 /100 WBC Normal [facility] Comment on above: Order Comment: Speci men Type: BLOOD SPECIMENOrdering Facility: [facility] Address: [address] [place] [address] Performed By: #### 5 7021-8 ####[facility] LABCLIA [id number] [place] [id number] [place] Platelet mean volume (Bld) [Entitic vol] 11.2 fL Normal 9.0-12.7 [facility] Comment on above: Order Comment: Speci men Type: BLOOD SPECIMENOrdering Facility: [facility] Address: [address] [place] [address] Performed By: #### 5 7021-8 ####[facility] LABCLIA [id number] [place] [id number] [place] Platelets (Bld) [#/Vol] 208 10*3/uL Normal 150-400 [facility] Comment on above: Order Comment: Speci men Type: BLOOD SPECIMENOrdering Facility: [facility] Address: [address] [place] [address] Performed By: #### 5 7021-8 ####[facility] LABIA [id number] [place] [address] [place] RBC (Bld) [#/Vol] 4.70 10*6/uL Normal 4.20-6.00 [facility] Comment on above: Order Comment: Speci men Type: BLOOD SPECIMENOrdering Facility: [facility] Address: [address] [place] [address] Performed By: #### 5 7021-8 ####[facility] LABIA [id number] [place] [address] [place] WBC (Bld) [#/Vol] 4.86 10*3/uL Normal 3.70-11.00 [facility] Comment on above: Order Comment: Speci men Type: BLOOD SPECIMENOrdering Facility: [facility] Address: [address] [place] [address] Performed By: #### 5 7021-8 ####[facility] LABIA [id number] [place] [id number] [place] CNOVon 04-23-2025 CNOV Office Visit (FAMPWS ) JONOROBERTO Jolene ([id number]) 1960 M Date Time Provider Department 04/23/25 8:00 AM YENNIFER WORRELL During your visit today, we recorded the following information about you: Pulse Respiration Blood pressure 49/minute 16/minute 118/82 Yennifer Worrell APRN.DOCUMENT MANAGEMENT ANALYST 04/23/2025 8:31 AM Signed - Continue your current dose of sertraline for anxiety; no changes were made today. - Stop by the lab for the ordered blood tests as soon as possible (you?re already fasting 10-12 hours; you may have water or black coffee). - Arrange your next colonoscopy (due every 3 years) with the same doctor in [place]--call their office to schedule. - We will complete and hold your paperwork until your lab results return; we?ll call you when the forms are ready for pickup. Health Promotion: - Eat healthy -- go to [email or web address] to get started - Have a yearly [...] and drive - Wear sunscreen Yennifer Worrell APRN.DOCUMENT MANAGEMENT ANALYST 04/23/2025 8:41 AM Signed This is a 64 year old male who presents today with: Roberto Jolene De La Cruz is a 64-year-old male with a history of anxiety, presenting for an annual wellness visit. HISTORY OF PRESENT ILLNESS: Annual Wellness Exam: Has form for work. - Last colonoscopy in 2020; Roberto plans to schedule another with the same provider in [place]. Headaches: - Occasional headaches attributed to allergies. - No medication use for allergies. - No other headaches reported. Anxiety/depression: - Managed with sertraline; no changes desired. - Anxiety exacerbated by family losses, including the of a brother three years ago and a sister. - Recent stress due to okdwwmzo-xr-wza's stage 3 throat cancer diagnosis. - Family [...] rhonchi, rales (more content not included)... Normal [facility] Comprehensive metabolic 2000 panelon 04-23-2025 Albumin [Mass/Vol] 3.9 g/dL Normal 3.9-4.9 [facility] Comment on above: Order Comment: Speci men Type: BLOOD SPECIMENOrdering Facility: [facility] Address: [address] [place] [address] Performed By: #### 2 4331-, ####[facility] LABCLIA [id number] [place] [address] [place] ALP [Catalytic activity/Vol] 76 U/L Normal 38-113 [facility] Comment on above: Order Comment: Speci men Type: BLOOD SPECIMENOrdering Facility: [facility] Address: [address] [place] [address] Performed By: #### 2 4331-, ####[facility] LABCLIA [id number] [place] [id number] [place] ALT [Catalytic activity/Vol] 20 U/L Normal 10-54 [facility] Comment on above: Order Comment: Speci men Type: BLOOD SPECIMENOrdering Facility: [facility] Address: [address] [place] [address] Performed By: #### 2 4331-, ####[facility] LABCLIA [id number] [facility] [address] [place] [address] [place] Anion gap [Moles/Vol] 9 mmol/L Normal 8-15 [facility] Comment on above: Order Comment: Speci men Type: BLOOD SPECIMENOrdering Facility: [facility] Address: [address] [place], [place] [address] Performed By: #### 2 4331-1, 57207-9 ####[facility] LABCLIA [id number] [facility] [address] [place] [address] [place] AST [Catalytic activity/Vol] 21 U/L Normal 14-40 [facility] Comment on above: Order Comment: Speci men Type: BLOOD SPECIMENOrdering Facility: [facility] Address: [address] [place] [address] Performed By: #### 2 4331-1, 61651-7 ####[facility] LABCLIA [id number] [place] [id number] [place] Bilirubin [Mass/Vol] 0.4 mg/dL Normal 0.2-1.3 [facility] Comment on above: Order Comment: Speci men Type: BLOOD SPECIMENOrdering Facility: [facility] Address: [address] [place], [place] [address] Performed By: #### 2 4331-1, 57924-1 ####[facility]CLIA [id number] [facility] [address] [address] [place] Calcium [Mass/Vol] 8.8 mg/dL Normal 8.5-10.2 [facility] Comment on above: Order Comment: Speci men Type: BLOOD SPECIMENOrdering Facility: [facility] Address: [address] [place], [place] [address] Performed By: #### 2 4331-1, 68609-4 ####[facility] LABCLIA [id number] [facility] [address] [address] [place] Chloride [Moles/Vol] 104 mmol/L Normal 98-107 [facility] Comment on above: Order Comment: Speci men Type: BLOOD SPECIMENOrdering Facility: [facility] Address: [address]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 PSCMando Transcribe Date/Time: May 29 2024 2:27P Dictated by : AYUSH CHIRINOS MD This examination was interpreted and the report reviewed and electronically signed by: AYUSH CHIRINOS MD on May 29 2024 2:28PM [facility] DIVISION OF RADIOLOGY * * *Final Report* [...] soft tissues: Unremarkable. DIVISION OF RADIOLOGY Provider, [facility] - 05/29/2024 * * *Final Report* * [...] tissues: Unremarkable. IMPRESSION IMPRESSION: Left basilar atelectasis/scarring. Cat Scan Tech: PSCMando Transcribe Date/Time: May 29 2024 2:27P Dictated by : AYUSH CHIRINOS MD This examination was interpreted and the report reviewed and electronically signed by: AYUSH CHIRINOS MD on May 29 2024 2:28PM EST [facility] Radiology Study observation (narrative) [facility] XR Chest PA and LateralOrder ed By: Ccf Provider on 05-29-2024 [facility] ED NOTEon 04-01-2024 ED NOTE HNO ID: [id number] Author: NATIVIDAD BROWN RN Service: Emergency Medicine Author Type: Registered Nurse Type: ED Notes Filed: 04/01/2024 09:43 Note Text: Dressing applied by Doctor Love [facility] ED NOTE HNO ID: [id number] Author: NATIVIDAD BROWN RN Service: Emergency Medicine Author Type: Registered Nurse Type: ED Notes Filed: 04/01/2024 09:11 Note Text: Doctor at bedside suturing Normal [facility] ED PROV NOTEon 04-01-2024 ED PROV NOTE HNO ID: [id number] Author: TERRENCE COELLO MD Service: Emergency Medicine [...] Post-procedure details: (more content not included)... Normal [facility] XR Chest PA and Lateralon IMPRESSION: No acute radiographic abnormality. Cat Scan Tech: KEVIN Transcribe Date/Time: Dec 27 2023 7:02P Dictated by : LAITH LARA MD This examination was interpreted and the report reviewed and electronically signed by: LAITH LARA MD on Dec 27 2023 7:05PM [facility] DIVISION OF RADIOLOGY * * *Final Report* [...] acute bony abnormality DIVISION OF RADIOLOGY Provider, [facility] - 12/27/2023 * * *Final Report* * [...] abnormality IMPRESSION IMPRESSION: No acute radiographic abnormality. Cat Scan Tech: KEVIN Transcribe Date/Time: Dec 27 2023 7:02P Dictated by : LAITH LARA MD This examination was interpreted and the report reviewed and electronically signed by: LAITH LARA MD on Dec 27 2023 7:05PM [facility] Radiology Study observation (narrative) [facility] XR Chest PA and LateralOrder ed By: Ccf Provider on 12-27-2023 [facility] XR Chest 2 Viewson [facility] XR Chest PA and Lateralon IMPRESSION: No acute radiographic abnormality. Cat Scan Tech: [facility] Transcribe Date/Time: Dec 20 2023 9:39A Dictated by : ASHKAN GAMBOA MD This examination was interpreted and the report reviewed and electronically signed by: ASHKAN GAMBOA MD on Dec 20 2023 9:39AM EST DIVISION OF RADIOLOGY * * *Final [...] soft tissues: Unremarkable. DIVISION OF RADIOLOGY Provider, [facility] - 12/20/2023 * * *Final Report* * [...] Unremarkable. IMPRESSION IMPRESSION: No acute radiographic abnormality. Cat Scan Tech: PSCB Transcribe Date/Time: Dec 20 2023 9:39A Dictated by : ASHKAN GAMBOA MD This examination was interpreted and the report reviewed and electronically signed by: ASHKAN GAMBOA MD on Dec 20 2023 9:39AM EST [facility] Radiology Study observation (narrative) [facility] XR Chest PA and LateralOrder ed By: Ccf Provider on 12-20-2023 [facility] XR Shoulder - left 3 Viewson 12-02-2023 IMPRESSION: No acute pathology. Cat Scan Tech: PSCB Transcribe Date/Time: Dec 02 2023 2:07P Dictated by : JOSE KENDALL MD This examination was interpreted and the report reviewed and electronically signed by: JOSE KENDALL MD on Dec 02 2023 2:08PM [facility] DIVISION OF RADIOLOGY * * *Final Report* [...] not high riding. DIVISION OF RADIOLOGY Provider, [facility] - 12/02/2023 * * *Final Report* * [...] [place]. IMPRESSION IMPRESSION: No acute pathology. Cat Scan [facility] Transcribe Date/Time: Dec 02 2023 2:07P Dictated by : JOSE KENDALL MD This examination was interpreted and the report reviewed and electronically signed by: JOSE KENDALL MD on Dec 02 2023 2:08PM EST [facility] XR Shoulder - left 3 ViewsOr dered By: Ccf Provider on 12-02-2023 [facility] XR Shoulder - left 3 Viewson 12-01-2023 Radiology Study observation (narrative) [facility] No Panel Informationon 07-19 Radiology Study observation (narrative) [facility] XR Finger - left AP and Late ral and obliqueon 07-19-2023 IMPRESSION: Degenerative changes in the second digit. No acute fractures identified. Cat Scan Tech: [facility] Transcribe Date/Time: Jul 19 2023 12:05P Dictated by : AYUSH CHIRIONS MD This examination was interpreted and the report reviewed and electronically signed by: AYUSH CHIRINOS MD on Jul 19 2023 12:09PM [facility] DIVISION OF RADIOLOGY * * *Final Report* [...] soft tissue swelling. DIVISION OF RADIOLOGY Provider, [facility] - 07/19/2023 * * *Final Report* * [...] the second digit. No acute fractures identified. Cat Scan Tech: [facility] Transcribe Date/Time: Jul 19 2023 12:05P Dictated by : AYUSH CHIRINOS MD This examination was interpreted and the report reviewed and electronically signed by: AYUSH CHIRINOS MD on Jul 19 2023 12:09PM [facility] XR Tibia and Fibula - left A P and Lateralon 07-19-2023 IMPRESSION: No radiographic evidence of acute osseous abnormality Cat Scan Tech: [facility] Transcribe Date/Time: Jul 19 2023 12:06P Dictated by : ASHKAN GAMBOA MD This examination was interpreted and the report reviewed and electronically signed by: ASHKAN GAMBOA MD on Jul 19 2023 12:12PM [facility] DIVISION OF RADIOLOGY * * *Final Report* [...] radiopaque foreign body. DIVISION OF RADIOLOGY Provider, [facility] - 07/19/2023 * * *Final Report* * [...] No radiographic evidence of acute osseous abnormality Cat Scan Tech: [facility] Transcribe Date/Time: Jul 19 2023 12:06P Dictated by : ASHKAN GAMBOA MD This examination was interpreted and the report reviewed and electronically signed by: ASHKAN GAMBOA MD on Jul 19 2023 12:12PM EST [facility] XR Tibia and Fibula - left A P and LateralOrdered By: Ccf Provider on 07-19-2023 [facility] Influenza virus A and B RNA and SARS-CoV-2 (COVID-19) N gene panel STORM+probe (Resp)on 07-08-2023 FLUAV RNA STORM+probe Ql (Unsp spec) Not detected Not Detected [facility] FLUBV RNA STORM+probe Ql (Unsp spec) Not detected Not Detected [facility] SARS-CoV-2 (COVID-19) RNA STORM+probe Ql (Resp) Not detected See comment [facility] STREP A MOLECULAR (POC)on Procedural Control Valid [facility] Strep A (POCT) Negative Negative [facility] XR Chest PA and Lateralon IMPRESSION: Left basilar atelectasis and/or scarring. Cat Scan Tech: [facility] Transcribe Date/Time: Dec 21 2022 3:44P Dictated by : AYUSH CHIRINOS MD This examination was interpreted and the report reviewed and electronically signed by: AYUSH CHIRINOS MD on Dec 21 2022 3:46PM [facility] DIVISION OF RADIOLOGY * * *Final Report* [...] soft tissues: Unremarkable. DIVISION OF RADIOLOGY Provider, [facility] - 12/21/2022 * * *Final Report* * [...] IMPRESSION IMPRESSION: Left basilar atelectasis and/or scarring. Cat Scan Tech: KEVIN Transcribe Date/Time: Dec 21 2022 3:44P Dictated by : AYUSH CHIRINOS MD This examination was interpreted and the report reviewed and electronically signed by: AYUSH CHIRINOS MD on Dec 21 2022 3:46PM EST [facility] XR Chest PA and LateralOrder ed By: [facility] Provider on 12-21-2022 [facility] XR Chest PA and Lateralon Radiology Study observation (narrative) [facility] XR FOOT GENERAL 3V AP/LAT/OB L LEFTon 08-11-2022 [facility] XR Foot - left AP and Latera l and obliqueon 08-11-2022 IMPRESSION: Negative left foot. Cat Scan Tech: KEVIN Transcribe Date/Time: Aug 11 2022 7:40P Dictated by : CARLINE ROBERSON MD This examination was interpreted and the report reviewed and electronically signed by: CARLINE ROBERSON MD on Aug 11 2022 7:42PM [facility] DIVISION OF RADIOLOGY * * *Final Report* [...] first metatarsal head. DIVISION OF RADIOLOGY Provider, [facility] - 08/11/2022 * * *Final Report* * [...] metatarsal head. IMPRESSION IMPRESSION: Negative left foot. Cat Scan Tech: KEVIN Transcribe Date/Time: Aug 11 2022 7:40P Dictated by : CARLINE ROBERSON MD This examination was interpreted and the report reviewed and electronically signed by: CARLINE ROBERSON MD on Aug 11 2022 7:42PM [facility] Radiology Study observation (narrative) [facility] XR Foot - left AP and Latera l and obliqueOrdered By: Ccf Provider on 08-11-2022 [facility] XR Chest PA and Lateralon IMPRESSION: Interval improvement of mild hazy or patchy opacities overlying the left upper lung. Cat Scan Tech: KEVIN Transcribe Date/Time: Jan 08 2022 11:42A Dictated by : AYUSH CHIRINOS MD This examination was interpreted and the report reviewed and electronically signed by: AYUSH CHIRINOS MD on Jan 08 2022 11:45AM [facility] DIVISION OF RADIOLOGY * * *Final Report* [...] soft tissues: Stable. DIVISION OF RADIOLOGY Provider, [facility] - 01/08/2022 * * *Final Report* * [...] patchy opacities overlying the left upper lung. Cat Scan Tech: KEVIN Transcribe Date/Time: Jan 08 2022 11:42A Dictated by : AYUSH CHIRINOS MD This examination was interpreted and the report reviewed and electronically signed by: AYUSH CHIRINOS MD on Jan 08 2022 11:45AM EST [facility] Radiology Study observation (narrative) [facility] X[facility] Chest PA and LateralOrder ed By: Ccf Provider on 01-08-2022 [facility] XR Chest PA and Lateralon IMPRESSION: Overall findings unchanged. Cat Scan Tech: PSCB Transcribe Date/Time: Dec 10 2021 9:55A Dictated by : AYUSH CHIRINOS MD This examination was interpreted and the report reviewed and electronically signed by: AYUSH CHIRINOS MD on Dec 10 2021 9:56AM EST DIVISION OF RADIOLOGY * * *Final [...] tissues: Unremarkable. DIVISION OF RADIOLOGY Provider, Jasmine [facility] - 12/10/2021 * * *Final Report* [...] tissues: Unremarkable. IMPRESSION IMPRESSION: Overall findings unchanged. Cat Scan Tech: KEVIN Transcribe Date/Time: Dec 10 2021 9:55A Dictated by : AYUSH CHIRINOS MD This examination was interpreted and the report reviewed and electronically signed by: AYUSH CHIRINOS MD on Dec 10 2021 9:56AM EST [facility] Radiology Study observation (narrative) [facility] XR Chest PA and LateralOrder ed By: Ccf Provider on 12-10-2021 [facility] XR Chest PA and Lateralon IMPRESSION: Question mild hazy opacities in the periphery of the left midlung zone which could reflect early manifestations of viral pneumonia given provided history. Cat Scan Tech: KEVIN Transcribe Date/Time: Dec 01 2021 11:20A Dictated by : ASHKAN GAMBOA MD This examination was interpreted and the report reviewed and electronically signed by: ASHKAN GAMBOA MD on Dec 01 2021 11:22AM EST DIVISION OF RADIOLOGY * * *Final [...] No acute abnormality. DIVISION OF RADIOLOGY Provider, Jasmine [facility] - 12/01/2021 * * *Final Report* * [...] manifestations of viral pneumonia given provided history. Cat Scan Tech: KEVIN Transcribe Date/Time: Dec 01 2021 11:20A Dictated by : ASHKAN GAMBOA MD This examination was interpreted and the report reviewed and electronically signed by: ASHKAN GAMBOA MD on Dec 01 2021 11:22AM EST [facility] Radiology Study observation (narrative) [facility] XR Chest PA and LateralOrder ed By: Ccf Provider on 12-01-2021 [facility] XR HAND LEFT 3+ VIEWS (STAND LEON)on [...] on WedJun 05, 2021 2:26:42 PM EDT [facility] Comment on above: Order Comment: [...] on WedMay 29, 2021 1:40:18 PM EDT [facility] Comment on above: Order Comment: WH Injury/Trauma or Illness?:Injury/Trauma How long have you had these symptoms (acute/chronic)?:Acute Reason for exam?:pain History of cancer?:u Surgeries, chemotherapy, or radiation?:u Type of Exam?:Initial Mechanism of injury?:fall XR Foot - left AP and Latera l and obliqueon 04-02-2021 IMPRESSION: Mild first MTP osteoarthrosis. No acute osseous abnormality identified. Cat Scan Tech: KEVIN Transcribe Date/Time: Apr 02 2021 5:44P Dictated by : TERRENCE LIMON MD This examination was interpreted and the report reviewed and electronically signed by: TERRENCE LIMON MD on Apr 02 2021 5:46PM EST DIVISION OF RADIOLOGY * * *Final [...] abnormality identified. DIVISION OF RADIOLOGY Provider, Jasmine Melendrez - 04/02/2021 * * *Final Report* * [...] MTP osteoarthrosis. No acute osseous abnormality identified. Cat Scan Tech: PSCB Transcribe Date/Time: Apr 02 2021 5:44P Dictated by : TERRENCE LIMON MD This examination was interpreted and the report reviewed and electronically signed by: TERRENCE LIMON MD on Apr 02 2021 5:46PM EST [facility] Radiology Study observation (narrative) [facility] XR Foot - left AP and Latera l and obliqueOrdered By: Ccf Provider on 04-02-2021 [facility] Auto Diffon 06-19-2019 Basophils (Bld) [#/Vol] 0.1 E3/mcL Normal 0.0-0.2 [facility] Comment on above: Order Comment: Order Added by Discern Expert. Performed By: #### 2 [id number] #### VAUGHN RemHemo [address] [place] [address] Basophils/100 WBC (Bld) 1.0 % Normal 0.0-2.0 [facility] Comment on above: Order Comment: Order Added by Discern Expert. Performed By: #### 2 [id number] #### [facility]AU[facility]N RemHemo [address] [place] [address] Eos Absolute 0.1 E3/mcL Normal 0.0-0.7 [facility] Comment on above: Order Comment: Order Added by Discern Expert. Performed By: #### 2 [id number] #### VAUGHN Rem[employer] [address] [place] [address] Eosinophils/100 WBC (Bld) 1.0 % Normal 0.0-11.0 [facility] Comment on above: Order Comment: Order Added by Discern Expert. Performed By: #### 2 [id number] #### [facility]AU[facility]N RemHemo [address] [place] [address] Lymphocytes (Bld) [#/Vol] 2.8 E3/mcL Normal 1.2-3.4 [facility] Comment on above: Order Comment: Order Added by Discern Expert. Performed By: #### 2 [id number] #### [facility] [employer] [address] [place] [address] Lymphocytes/100 WBC (Bld) 28.5 % Normal 20.0-55.0 [facility] Comment on above: Order Comment: Order Added by Discern Expert. Performed By: #### 2 [id number] #### [facility]AUGHN Rem[employer]emo [address] [place] [address] Citrus Absolute 0.2 E3/mcL Normal 0.0-0.7 [facility] Comment on above: Order Comment: Order Added by Discern Expert. Performed By: #### 2 [id number] #### [facility]AUGHN Rem[facility]emo [address] [place] [address] Monocytes/100 WBC (Bld) 2.5 % Normal 0.0-10.0 [facility] Comment on above: Order Comment: Order Added by Discern Expert. Performed By: #### 2 [id number] #### [facility]AUGHN Rem[facility]emo [address] [place] [address] Neutro Absolute 6.6 E3/mcL High 1.4-6.5 [facility] Comment on above: Order Comment: Order Added by Discern Expert. Performed By: #### 2 [id number] #### [facility]AUGHN Rem[facility]emo [address] [place] [address] Neutro Auto 67.0 % Normal 37.0-75.0 [facility] Comment on above: Order Comment: Order Added by Discern Expert. Performed By: #### 2 [id number] #### [facility]AUGHN RemHemo [address] [place] [address] CBC w/ Auto Diffon Erythrocyte distribution width (RBC) [Ratio] 14.3 % Normal 11.5-14.5 [facility] Comment on above: Performed By: #### 2 [id number] #### VAUGHN EisenbergHemo [address] [place] [address] Hematocrit (Bld) [Volume fraction] 42.1 % Normal 42.0-52.0 [facility] Comment on above: Performed By: #### 2 [id number] #### VAUGHN RemHemo [address] [place] [address] Hemoglobin (Bld) [Mass/Vol] 14.2 g/dL Normal 13.5-18.0 [facility] Comment on above: Performed By: #### 2 [id number] #### VAUGHN RemHemo [address] [place] [address] MCH (RBC) [Entitic mass] 31.9 pg High 27.0-31.0 [facility] Comment on above: Performed By: #### 2 [id number] #### VAUGHN RemHemo [address] [place] [address] MCHC (RBC) [Mass/Vol] 33.8 g/dL Normal 33.0-37.[address] [facility] Comment on above: Performed By: #### 2 [id number] #### VAUGHN RemHemo [address] [place] [address] MCV (RBC) [Entitic vol] 94.4 fL Normal 78.0-100.0 [facility] Comment on above: Performed By: #### 2 [id number] #### VAUGHN RemHemo [address] [place] [address] Platelet mean volume (Bld) [Entitic vol] 8.7 fL Normal 7.4-11.0 [facility] Comment on above: Performed By: #### 2 [id number] #### VAUGHN RemHemo [address] [place] [address] Platelets (Bld) [#/Vol] 218 E3/mcL Normal 130-400 [facility] Comment on above: Performed By: #### 2 [id number] #### VAUGHN RemHemo [address] [place] [address] RBC (Bld) [#/Vol] 4.46 E6/mcL Normal 3.90-6.10 [facility] Comment on above: Performed By: #### 2 [id number] #### VAUGHN RemHemo [facility] [place] [address] WBC (Bld) [#/Vol] 9.9 E3/mcL Normal 3.6-11.0 [facility] Comment on above: Performed By: #### 2 [id number] #### VAUGHN RemHemo [address] [place] [address] CMPon 06-19-2019 Albumin [Mass/Vol] 4.1 g/dL Normal 3.4-5.0 [facility] Comment on above: Performed By: #### 2 [id number] #### VAUGHN [employer] [address] [place] [address] Albumin/Globulin [Mass ratio] 1.6 {ratio} Normal 1.1-1.9 [facility] Comment on above: Performed By: #### 2 [id number] #### VAU[facility]N [employer] [address] [place] [address] Alk Phos 77 Int._Unit/L Normal 33-120 [facility] Comment on above: Performed By: #### 2 [id number] #### VAUGHN [employer]ink [facility] [place] [address] ALT [Catalytic activity/Vol] 19 Int._Unit/L Normal 10-52 [facility] Comment on above: Performed By: #### 2 [id number] #### VAUGHN [employer] [address] [place] [address] Anion gap [Moles/Vol] 13 mmol/L Normal 10-[address] [facility] Comment on above: Performed By: #### 2 [id number] #### [facility] [employer] [address] [place] [address]97 AST [Catalytic activity/Vol] 17 Int._Unit/L Normal 9-39 [facility] Comment on above: Performed By: #### 2 610542 #### VAUGHN [employer] [address] [place] [address] Bili Total 0.34 mg/dL Normal 0.00-1.20 [facility] Comment on above: Performed By: #### 2 [id number] #### [facility] [employer] [address] [place] [address] Calcium [Mass/Vol] 9.0 mg/dL Normal 8.6-10.3 [facility] Comment on above: Performed By: #### 2 361573 #### [facility] [employer] [address] [place] [address] 13835 Chloride [Moles/Vol] 105 mmol/L Normal 98-107 [facility] Comment on above: Performed By: #### 2 [id number] #### [facility] [employer] [address] [place] [address] 11368 CO2 [Moles/Vol] 24.0 mmol/L Normal 21.0-32.0 [facility] Comment on above: Performed By: #### 2 655025 #### [facility] [employer] [address] [place] [address]149 Creatinine [Mass/Vol] 1.1 mg/dL Normal 0.5-1.[address] [facility] Comment on above: Performed By: #### 2 073826 #### [facility] [employer] [address] [place] [address] Globulin (S) [Mass/Vol] 3.0 g/dL Normal 2.0-4.0 [facility] Comment on above: Performed By: #### 2 335855 #### [facility] [employer] [address] [place] [address] 36061 Glucose [Mass/Vol] 197 mg/dL High 70-99 [facility] Comment on above: Performed By: #### 2 823082 #### [facility]AU[facility] [employer] [address] [place] [address] Potassium [Moles/Vol] 3.5 mmol/L Normal 3.5-5.[address] [facility] Comment on above: Performed By: #### 2 510140 #### [facility] [employer] [address] [place] [address] 36657 Protein [Mass/Vol] 6.6 g/dL Normal 6.4-8.2 [facility] Comment on above: Performed By: #### 2 601901 #### [facility]AU[facility] [employer] [address] [place] [address] 75357 Sodium [Moles/Vol] 138 mmol/L Normal 136-145 [facility] Comment on above: Performed By: #### 2 821547 #### [facility] [employer] [address] [place] [address] 73755 Urea nitrogen [Mass/Vol] 22 mg/dL Normal 6-23 [facility] Comment on above: Performed By: #### 2 [id number] #### [facility] [employer] [address] [place] [address] 66273 Urea nitrogen/Creatinine [Mass ratio] 20.0 ratio Normal 5.4-30.0 [facility] Comment on above: Performed By: #### 2 [id number] #### [facility] [employer] [address] [place] [address] Abdomen/Pelvis w/ Contras ton 06-19-2019 CT Abdomen/Pelvis w/ Contrast Exam Date/Time: 06/19/2019 07:30 EDT Reason for Exam: Pain Report STUDY: CT Abdomen/Pelvis w/ Contrast; 06/19/2019 7:30 am INDICATION: Pain. Abdominal pain and vomiting since 2:00 a.m. COMPARISON: None. ACCESSION NUMBER(S): [id number] ORDERING CLINICIAN: Yusef Lopez TECHNIQUE: Contiguous axial [...] by: Darvin Spencer MD Technologist: Shantelle ESTES [facility] Lactic Acidon 06-19-2019 Lactate [Moles/Vol] 1.7 mmol/L Normal 0.4-2.0 [facility] Comment on above: Performed By: #### 2 [id number] #### VAUGHN Rem[facility]emo [address] [place] [address] Lactate [Moles/Vol] 4.1 mmol/L High 0.4-2.0 [facility] Comment on above: Performed By: #### 2 [id number] #### VAUGHN [employer] [address] [place] [address] Lactate [Moles/Vol] 2.6 mmol/L High 0.4-2.0 [facility] Comment on above: Performed By: #### 2 412591 #### [facility]AU[facility]N [employer] [address] [place] [address] 65764 Lipase Levelon 06-19-2019 Lipase Lvl 18 Int._Unit/L Normal [facility] Comment on above: Performed By: #### 2 [id number] #### [facility] [employer] [address] [place] [address] 17578 Troponin-Ion 06-19-2019 Troponin I.cardiac [Mass/Vol] ng/mL Normal 0.00-0.03 [facility] Comment on above: Performed By: #### 2 [id number] #### VAUGHN Rem[facility]emo [address] [place] [address] 17750 UA Completeon 06-19-2019 Color (U) Yellow Normal Yellow [facility] Comment on above: Performed By: #### 8 [id number] #### VAUGHN Urinalysis Automated Subsection [facility] [place] [address] Glucose (U) [Mass/Vol] Negative Normal Negative [facility] Comment on above: Performed By: #### 8 [id number] #### VAUGHN Urinalysis Automated Subsection [address] [place] [address] Ketones Ql (U) Trace Normal [facility] Comment on above: Performed By: #### 8 [id number] #### VAUGHN Urinalysis Automated Subsection [facility] [place] [address] RBC (U) [#/Vol] 0-3 Normal 0-3 [facility] Comment on above: Performed By: #### 8 [id number] #### VAUGHN Urinalysis Automated Subsection [address] [place] [address] UA Blood Negative Normal Negative [facility] Comment on above: Performed By: #### 8 [id number] #### VAUGHN Urinalysis Automated Subsection [facility] [place] [address] UA Clarity Clear Normal Clear [facility] Comment on above: Performed By: #### 8 [id number] #### VAUGHN Urinalysis Automated Subsection [facility] [place] [address] UA Leuk Est Negative Normal Negative [facility] Comment on above: Performed By: #### 8 [id number] #### VAUGHN Urinalysis Automated Subsection [facility] [place] [address] UA Mucous Occasional Abnormal Trace [facility] Comment on above: Performed By: #### 8 [id number] #### VAUGHN Urinalysis [employer]section [address] [place] [address] UA Nitrite Negative Normal Negative [facility] Comment on above: Performed By: #### 8 [id number] #### VAUGHN Urinalysis [employer] [address] [place] [address] 67518 UA pH 5.0 Normal 4.6-8.0 [facility] Comment on above: Performed By: #### 8 [id number] #### VAUGHN Urinalysis Automated [employer]section [address] [place] [address] 90038 UA Protein Negative Normal Negative [facility] Comment on above: Performed By: #### 8 [id number] #### VAUGHN Urinalysis Autom[employer]section [address] [place] [address] 80982 UA Spec Grav >1.060 High 1.003-1.030 [facility] Comment on above: Performed By: #### 8 [id number] #### VAUGHN Urinalysis Automated Subsection [address] [place] [address] 56766 UA Squam Epithelial 0-5 Normal 0-5 [facility] Comment on above: Performed By: #### 8 [id number] #### VAUGHN Urinalysis Automated Subsection [address] [place] [address] 24727 UA Urobilinogen Negative Normal [facility] Comment on above: Result Comment: Due to a manufacturing issue, low positive urobilinogen results may be fasely positive. Correlate with urine bilirubin and additional clinical/laboratory findings to assess the risk of hemolytic anemia or liver disease. If clinically indicated, repeat testing with an alternate method is available by contacting the laboratory within 24 hours. Performed By: #### 8 [id number] #### [facility]AU[facility]N Urinalysis [facility]section [address] [place] [address] UA WBC 0-5 Normal 0-5 [facility] Comment on above: Performed By: #### 8 [id number] #### VAUGHN Urinalysis Automated Subsection [facility] [place] [id number] Urobilinogen Qn (U) Negative Normal Negative [facility] Comment on above: Performed By: #### 8 [id number] #### VAUGHN Urinalysis Automated Subsection [facility] [place] [id number] eGFRon 06-19-2019 GFR/1.73 sq M predicted among non-blacks MDRD (S/P/Bld) [Vol rate/Area] mL/min/{1.73_m2} Normal [facility] Comment on above: Order Comment: Order added by Discern Expert. Performed By: #### 1 [id number] #### VAU[facility]N [employer] [facility] [place] [address] Vital Signs Date Time Vital Sign Value Performing Clinician Facility 07-17-2025 11:00-0400 Body temperature 97.81 [degF] Yennifer Worrell APRN.CNP Work Phone: [facility] 07-17-2025 10:41-0400 Diastolic blood pressure 80 mm[Hg] Yennifer Worrell APRN.DOCUMENT MANAGEMENT ANALYST Work Phone: [facility] 07-17-2025 10:41-0400 Heart rate 52 /min Yennifer Worrell BEHAVIORAL HEALTH CLINICIAN.DOCUMENT MANAGEMENT ANALYST Work Phone: [facility] 07-17-2025 10:41-0400 Respiratory rate 16 /min Yennifer Worrell APRN.DOCUMENT MANAGEMENT ANALYST Work Phone: [facility] 07-17-2025 10:41-0400 SaO2% (BldA) [Mass fraction] 97 % Yennifer Worrell APRN.DOCUMENT MANAGEMENT ANALYST Work Phone: [facility] 07-17-2025 10:41-0400 Systolic blood pressure 114 mm[Hg] Yennifer Anaid BARRETT Work Phone: 6(853)711-218519 [place] [address] 05-28-2025 07:23-0400 Body mass index (BMI) [Ratio] 33.2 kg/m2 Dr. Kenneth Beckett MD Work Phone: 2(030)416-327187 [place] [address] 05-28-2025 07:23-0400 Body weight 117.[address] Kenneth Beckett MD Work Phone: 3(355)670-602657 [place] [address] 05-28-2025 07:23-0400 Diastolic blood pressure 77 mm[Hg] Dr. Kenneth Beckett MD Work Phone: 1(030)310-509757 [place] [address] 05-28-2025 07:23-0400 Heart rate 56 /min Dr. Kenneth Beckett MD Work Phone: 9(442)371-161357 [place] [address] 05-28-2025 07:23-0400 Respiratory rate 18 /min Dr. Kenneth Beckett MD Work Phone: 2(177)048-933957 [place] [address] 05-28-2025 07:23-0400 SaO2% (BldA) [Mass fraction] 98 % Dr. Kenneth Beckett MD Work Phone: 6(027)372-076257 [place] [address] 05-28-2025 07:23-0400 Systolic blood pressure 129 mm[Hg] Dr. Kenneth Beckett MD Work Phone: 6(750)667-580957 [place] [address] 05-04-2025 06:18-0400 Body temperature 98 [degF] Dr. Kenneth Beckett MD Work Phone: 9(252)476-919757 [place] [address] 05-04-2025 06:18-0400 Diastolic blood pressure 86 mm[Hg] Dr. Kenneth Beckett MD Work Phone: 0(517)462-994557 [place] [address] 05-04-2025 06:18-0400 Heart rate 74 /min Dr. Kenneth Beckett MD Work Phone: 9(293)569-011757 [place] [address] 05-04-2025 06:18-0400 Respiratory rate 16 /min Dr. Kenneth Beckett MD Work Phone: 4(900)172-210057 [place] [address] 05-04-2025 06:18-0400 SaO2% (BldA) [Mass fraction] 99 % Dr. Kenneth Beckett MD Work Phone: 6(716)698-526557 [place] [address] 05-04-2025 06:18-0400 Systolic blood pressure 118 mm[Hg] Dr. Kenneth Beckett MD Work Phone: 7(902)714-059157 [place] [address] 05-04-2025 03:22-0400 Body height 187.[address] Kenneth Beckett MD Work Phone: 4(603)210-629257 [place] [address] 05-04-2025 03:22-0400 Body mass index (BMI) [Ratio] 33.1 kg/m2 Dr. Kenneth Beckett MD Work Phone: 1(806)153-755857 [place] [address] 05-04-2025 03:22-0400 Body weight [address] Kenneth Beckett MD Work Phone: 8(583)021-620257 [place] [address] 05-02-2025 07:05-0400 Body height 187.[address] Kenneth Beckett MD Work Phone: 3(865)184-993757 [place] [address] 05-02-2025 07:05-0400 Body mass index (BMI) [Ratio] 33.3 kg/m2 Dr. Kenneth Beckett MD Work Phone: 1(758)967-123557 [place] [address] 05-02-2025 07:05-0400 Body weight 117.[address] Kenneth Beckett MD Work Phone: 6(874)243-656857 [place] [address] 05-02-2025 07:05-0400 Diastolic blood pressure 7 mm[Hg] Dr. Kenneth Beckett MD Work Phone: 8(731)682-290557 [place] [address] 05-02-2025 07:05-0400 Diastolic blood pressure 77 mm[Hg] Dr. Kenneth Beckett MD Work Phone: 9(103)932-101057 [place] [address] 05-02-2025 07:05-0400 Heart rate 76 /min Dr. Kenneth Beckett MD Work Phone: 8(956)810-171057 [place] [address] 05-02-2025 07:05-0400 Respiratory rate 18 /min Dr. Kenneth Beckett MD Work Phone: 8(999)968-239957 [place] [address] 05-02-2025 07:05-0400 SaO2% (BldA) [Mass fraction] 95 % Dr. Kenneth Beckett MD Work Phone: 4(715)204-484157 [place] [address] 05-02-2025 07:05-0400 Systolic blood pressure 117 mm[Hg] Dr. Kenneth Beckett MD Work Phone: 6(826)766-064757 [place] [address] 04-30-2025 18:01-0400 Diastolic blood pressure 69 mm[Hg] Dr. Kenneth Beckett MD Work Phone: 0(100)817-280557 [place] [address] 04-30-2025 18:01-0400 Heart rate 98 /min Dr. Kenneth Beckett MD Work Phone: 0(500)372-985657 [place] [address] 04-30-2025 18:01-0400 Respiratory rate 22 /min Dr. Kenneth Beckett MD Work Phone: 1(244)577-454957 [place] [address] 04-30-2025 18:01-0400 SaO2% (BldA) [Mass fraction] 95 % Dr. Kenneth Beckett MD Work Phone: 8(954)572-809357 [place] [address] 04-30-2025 18:01-0400 Systolic blood pressure 96 mm[Hg] Dr. Kenneth Beckett MD Work Phone: 3(203)116-370357 [place] [address] 04-30-2025 15:04-0400 Body height 187.[address] Kenneth Beckett MD Work Phone: 1(721)037-617657 [place] [address] 04-30-2025 15:04-0400 Body mass index (BMI) [Ratio] 33 kg/m2 Dr. Kenneth Beckett MD Work Phone: 6(760)250-459157 [place] [address] 04-30-2025 15:04-0400 Body temperature 97.1 [degF] Dr. Kenneth Beckett MD Work Phone: 8(732)196-640557 [place] [address] 04-30-2025 15:04-0400 Body weight 116.[address] Kenneth Beckett MD Work Phone: 1(009)842-102157 [place] [address] 04-30-2025 15:00-0400 Heart rate 127 /min Yennifer Worrell BEHAVIORAL HEALTH CLINICIAN.DOCUMENT MANAGEMENT ANALYST Work Phone: 9(290)321-559019 [place] [address] 04-30-2025 14:08-0400 Body temperature 98.01 [degF] Yennifer Worrell BEHAVIORAL HEALTH CLINICIAN.DOCUMENT MANAGEMENT ANALYST Work Phone: [facility] 04-30-2025 14:08-0400 Diastolic blood pressure 47 mm[Hg] Yennifer Haagen BEHAVIORAL HEALTH CLINICIAN.DOCUMENT MANAGEMENT ANALYST Work Phone: [facility] 04-30-2025 14:08-0400 Respiratory rate 16 /min Yennifer Haagen BEHAVIORAL HEALTH CLINICIAN.DOCUMENT MANAGEMENT ANALYST Work Phone: [facility] 04-30-2025 14:08-0400 SaO2% (BldA) [Mass fraction] 98 % Yennifer Haagen BEHAVIORAL HEALTH CLINICIAN.DOCUMENT MANAGEMENT ANALYST Work Phone: [facility] 04-30-2025 14:08-0400 Systolic blood pressure 95 mm[Hg] Yennifer Haagen BEHAVIORAL HEALTH CLINICIAN.DOCUMENT MANAGEMENT ANALYST Work Phone: [facility] 04-23-2025 07:57-0400 Diastolic blood pressure 82 mm[Hg] Yennifer Haagen BEHAVIORAL HEALTH CLINICIAN.DOCUMENT MANAGEMENT ANALYST Work Phone: [facility] 04-23-2025 07:57-0400 Heart rate 49 /min Yennifer Haagen BEHAVIORAL HEALTH CLINICIAN.DOCUMENT MANAGEMENT ANALYST Work Phone: [facility] 04-23-2025 07:57-0400 Respiratory rate 16 /min Yennifer Haagen BEHAVIORAL HEALTH CLINICIAN.DOCUMENT MANAGEMENT ANALYST Work Phone: [facility] 04-23-2025 07:57-0400 SaO2% (BldA) [Mass fraction] 95 % Yennifer Haagen BEHAVIORAL HEALTH CLINICIAN.DOCUMENT MANAGEMENT ANALYST Work Phone: [facility] 04-23-2025 07:57-0400 Systolic blood pressure 118 mm[Hg] Yennifer Haagen BEHAVIORAL HEALTH CLINICIAN.DOCUMENT MANAGEMENT ANALYST Work Phone: [facility] 02-19-2025 09:42-0400 Body mass index (BMI) [Ratio] 35.67 kg/m2 Hanh Sharma BEHAVIORAL HEALTH CLINICIAN.DOCUMENT MANAGEMENT ANALYST Work Phone: [facility] 02-19-2025 09:42-0400 Body temperature 97 [degF] Hanh Sharma BEHAVIORAL HEALTH CLINICIAN.DOCUMENT MANAGEMENT ANALYST Work Phone: [facility] 02-19-2025 09:42-0400 Body weight 119.3 kg Hanh Suppan BEHAVIORAL HEALTH CLINICIAN.DOCUMENT MANAGEMENT ANALYST Work Phone: [facility] 02-19-2025 09:42-0400 Diastolic blood pressure 74 mm[Hg] Hanh Suppan BEHAVIORAL HEALTH CLINICIAN.DOCUMENT MANAGEMENT ANALYST Work Phone: [facility] 02-19-2025 09:42-0400 Heart rate 59 /min Hanh Suppan BEHAVIORAL HEALTH CLINICIAN.DOCUMENT MANAGEMENT ANALYST Work Phone: [facility] 02-19-2025 09:42-0400 SaO2% (BldA) [Mass fraction] 96 % Hanh Suppan BEHAVIORAL HEALTH CLINICIAN.DOCUMENT MANAGEMENT ANALYST Work Phone: [facility] 02-19-2025 09:42-0400 Systolic blood pressure 122 mm[Hg] Hanh Suppan BEHAVIORAL HEALTH CLINICIAN.DOCUMENT MANAGEMENT ANALYST Work Phone: [facility] 01-22-2025 14:02-0400 Body mass index (BMI) [Ratio] 35.4 kg/m2 Hanh Suppan BEHAVIORAL HEALTH CLINICIAN.DOCUMENT MANAGEMENT ANALYST Work Phone: [facility] 01-22-2025 14:02-0400 Body temperature 98.1 [degF] Hanh Suppan BEHAVIORAL HEALTH CLINICIAN.DOCUMENT MANAGEMENT ANALYST Work Phone: [facility] 01-22-2025 14:02-0400 Body weight 118.39 kg Hanh Suppan BEHAVIORAL HEALTH CLINICIAN.DOCUMENT MANAGEMENT ANALYST Work Phone: [facility] 01-22-2025 14:02-0400 Diastolic blood pressure 74 mm[Hg] Hanh Suppan BEHAVIORAL HEALTH CLINICIAN.DOCUMENT MANAGEMENT ANALYST Work Phone: [facility] 01-22-2025 14:02-0400 Heart rate 64 /min Hanh Suppan BEHAVIORAL HEALTH CLINICIAN.DOCUMENT MANAGEMENT ANALYST Work Phone: [facility] 01-22-2025 14:02-0400 SaO2% (BldA) [Mass fraction] 95 % Hanh Suppan BEHAVIORAL HEALTH CLINICIAN.DOCUMENT MANAGEMENT ANALYST Work Phone: [facility] 01-22-2025 14:02-0400 Systolic blood pressure 128 mm[Hg] Hanh Suppan BEHAVIORAL HEALTH CLINICIAN.DOCUMENT MANAGEMENT ANALYST Work Phone: [facility] 01-15-2025 14:31-0400 Body mass index (BMI) [Ratio] 34.2 kg/m2 Dr. Kenneth Beckett MD Work Phone: [facility] 01-15-2025 14:31-0400 Body weight 117.[address] Kenneth Beckett MD Work Phone: [facility] 01-15-2025 14:31-0400 Diastolic blood pressure 75 mm[Hg] Dr. Kenneth Beckett MD Work Phone: [facility] 01-15-2025 14:31-0400 Heart rate 61 /min Dr. Kenneth Beckett MD Work Phone: [facility] 01-15-2025 14:31-0400 Inhaled oxygen flow rate 94 L/min Dr. Kenneth Beckett MD Work Phone: [facility] 01-15-2025 14:31-0400 Respiratory rate 18 /min Dr. Kenneth Beckett MD Work Phone: [facility] 01-15-2025 14:31-0400 Systolic blood pressure 124 mm[Hg] Dr. Kenneth Beckett MD Work Phone: [facility] 12-25-2024 20:58-0500 Diastolic blood pressure 80 mm[Hg] Kenneth Beckett MD Work Phone: [facility] 12-25-2024 20:58-0500 Heart rate 63 /min Kenneth Beckett MD Work Phone: [facility] 12-25-2024 20:58-0500 Respiratory rate 18 /min Kenneth Beckett MD Work Phone: [facility] 12-25-2024 20:58-0500 SaO2% (BldA) [Mass fraction] 94 % Kenneth Beckett MD Work Phone: [facility] 12-25-2024 20:58-0500 Systolic blood pressure 133 mm[Hg] Kenneth Beckett MD Work Phone: [facility] 12-25-2024 20:14-0500 Body height 188 cm Kenneth Beckett MD Work Phone: [facility] 12-25-2024 20:14-0500 Body mass index (BMI) [Ratio] 31.46 kg/m2 Kenneth Beckett MD Work Phone: [facility] 12-25-2024 20:14-0500 Body temperature 97.7 [degF] Kenneth Beckett MD Work Phone: [facility] 12-25-2024 20:14-0500 Body weight 111.13 kg Kenneth Beckett MD Work Phone: [facility] 10-30-2024 10:45-0500 Body height 188 cm Jhon McGreal PA-C Work Phone: [facility] 10-30-2024 10:45-0500 Body mass index (BMI) [Ratio] 31.84 kg/m2 Jhon McGreal PA-C Work Phone: [facility] 10-30-2024 10:45-0500 Body weight 112.49 kg Jhon McGreal PA-C Work Phone: [facility] 10-30-2024 10:45-0500 Diastolic blood pressure 82 mm[Hg] Jhon McGreal PA-C Work Phone: [facility] 10-30-2024 10:45-0500 Heart rate 58 /min Jhon McGreal PA-C Work Phone: [facility] 10-30-2024 10:45-0500 Systolic blood pressure 106 mm[Hg] Jhon McGreal PA-C Work Phone: [facility] 10-20-2024 13:00-0500 Diastolic blood pressure 82 mm[Hg] Edinson Alanis MD Work Phone: [facility] 10-20-2024 13:00-0500 Heart rate 58 /min Edinson Alanis MD Work Phone: [facility] 10-20-2024 13:00-0500 SaO2% (BldA) [Mass fraction] 93 % Edinson Alanis MD Work Phone: [facility] 10-20-2024 13:00-0500 Systolic blood pressure 106 mm[Hg] Edinson Alanis MD Work Phone: [facility] 10-20-2024 12:40-0500 Respiratory rate 20 /min Edinson Alanis MD Work Phone: [facility] 10-20-2024 12:10-0500 Body temperature 97.81 [degF] Edinson Alanis MD Work Phone: [facility] 10-20-2024 09:41-0500 Body height 188 cm Edinson Alanis MD Work Phone: [facility] 10-20-2024 09:41-0500 Body mass index (BMI) [Ratio] 31.84 kg/m2 Edinson Alanis MD Work Phone: [facility] 10-20-2024 09:41-0500 Body weight 112.49 kg Edinson Alanis MD Work Phone: [facility] 09-05-2024 21:10-0400 Diastolic blood pressure 80 mm[Hg] Stephen Foskey DO Work Phone: [facility] 09-05-2024 21:10-0400 Heart rate 76 /min Stephen Foskey DO Work Phone: [facility] 09-05-2024 21:10-0400 Respiratory rate 18 /min Stephen Foskey DO Work Phone: [facility] 09-05-2024 21:10-0400 SaO2% (BldA) [Mass fraction] 98 % Stephen Foskey DO Work Phone: [facility] 09-05-2024 21:10-0400 Systolic blood pressure 166 mm[Hg] Stephen Foskey DO Work Phone: [facility] 09-05-2024 19:23-0400 Body temperature 98.71 [degF] Stephen Foskey DO Work Phone: [facility] 09-05-2024 19:21-0400 Body height 185.4 cm Stephen Foskey DO Work Phone: [facility] 09-05-2024 19:21-0400 Body mass index (BMI) [Ratio] 32.85 kg/m2 Stephen Foskey DO Work Phone: [facility] 09-05-2024 19:21-0400 Body weight 112.95 kg Stehpen Foskey DO Work Phone: [facility] 09-04-2024 09:48-0400 Body height 188 cm Edinson Alanis MD Work Phone: [facility] 09-04-2024 09:48-0400 Body mass index (BMI) [Ratio] 31.84 kg/m2 Edinson Alanis MD Work Phone: [facility] 09-04-2024 09:48-0400 Body weight 112.49 kg Edinson Alanis MD Work Phone: [facility] 09-04-2024 09:48-0400 Diastolic blood pressure 78 mm[Hg] Edinson Alanis MD Work Phone: [facility] 09-04-2024 09:48-0400 Systolic blood pressure 120 mm[Hg] Edinson Alanis MD Work Phone: [facility] 05-29-2024 14:10-0400 Body mass index (BMI) [Ratio] 34.38 kg/m2 Vale Braden BEHAVIORAL HEALTH CLINICIAN.DOCUMENT MANAGEMENT ANALYST Work Phone: [facility] 05-29-2024 14:10-0400 Body temperature 97.81 [degF] Vale Braden BEHAVIORAL HEALTH CLINICIAN.DOCUMENT MANAGEMENT ANALYST Work Phone: [facility] 05-29-2024 14:10-0400 Body weight 115 kg Vale Braden BEHAVIORAL HEALTH CLINICIAN.DOCUMENT MANAGEMENT ANALYST Work Phone: [facility] 05-29-2024 14:10-0400 Diastolic blood pressure 80 mm[Hg] Vale Braden BEHAVIORAL HEALTH CLINICIAN.DOCUMENT MANAGEMENT ANALYST Work Phone: [facility] 05-29-2024 14:10-0400 Heart rate 65 /min Vale Braden BEHAVIORAL HEALTH CLINICIAN.DOCUMENT MANAGEMENT ANALYST Work Phone: [facility] 05-29-2024 14:10-0400 Respiratory rate 21 /min Vale Braden BEHAVIORAL HEALTH CLINICIAN.DOCUMENT MANAGEMENT ANALYST Work Phone: [facility] 05-29-2024 14:10-0400 SaO2% (BldA) [Mass fraction] 97 % Vale Braden BEHAVIORAL HEALTH CLINICIAN.DOCUMENT MANAGEMENT ANALYST Work Phone: [facility] 05-29-2024 14:10-0400 Systolic blood pressure 128 mm[Hg] Vale Braden BEHAVIORAL HEALTH CLINICIAN.DOCUMENT MANAGEMENT ANALYST Work Phone: [facility] 12-27-2023 17:13-0500 Body weight 117.48 kg Kenneth Beckett MD Work Phone: [facility] 12-27-2023 17:13-0500 Diastolic blood pressure 82 mm[Hg] Kenneth Beckett MD Work Phone: [facility] 12-27-2023 17:13-0500 Heart rate 76 /min Kenneth Beckett MD Work Phone: [facility] 12-27-2023 17:13-0500 SaO2% (BldA) [Mass fraction] 96 % Kenneth Beckett MD Work Phone: [facility] 12-27-2023 17:13-0500 Systolic blood pressure 126 mm[Hg] Kenneth Beckett MD Work Phone: [facility] 12-22-2023 19:12-0500 Body temperature 98.71 [degF] Vale Braden BEHAVIORAL HEALTH CLINICIAN.DOCUMENT MANAGEMENT ANALYST Work Phone: [facility] 12-22-2023 19:12-0500 Body weight 117.94 kg Vale Braden BEHAVIORAL HEALTH CLINICIAN.DOCUMENT MANAGEMENT ANALYST Work Phone: [facility] 12-22-2023 19:12-0500 Diastolic blood pressure 68 mm[Hg] Vale Braden BEHAVIORAL HEALTH CLINICIAN.DOCUMENT MANAGEMENT ANALYST Work Phone: [facility] 12-22-2023 19:12-0500 Heart rate 90 /min Vale Braden BEHAVIORAL HEALTH CLINICIAN.DOCUMENT MANAGEMENT ANALYST Work Phone: [facility] 12-22-2023 19:12-0500 Respiratory rate 16 /min Vale Braden BEHAVIORAL HEALTH CLINICIAN.DOCUMENT MANAGEMENT ANALYST Work Phone: [facility] 12-22-2023 19:12-0500 SaO2% (BldA) [Mass fraction] 96 % Vale Braden BEHAVIORAL HEALTH CLINICIAN.DOCUMENT MANAGEMENT ANALYST Work Phone: [facility] 12-22-2023 19:12-0500 Systolic blood pressure 118 mm[Hg] Vale Braden BEHAVIORAL HEALTH CLINICIAN.DOCUMENT MANAGEMENT ANALYST Work Phone: [facility] 12-20-2023 09:23-0500 Body temperature 97.81 [degF] Lauren Mckenzie APRN.DOCUMENT MANAGEMENT ANALYST Work Phone: [facility] 12-20-2023 09:23-0500 Body weight 122.02 kg Lauren Mckenzie APRN.DOCUMENT MANAGEMENT ANALYST Work Phone: [facility] 12-20-2023 09:23-0500 Diastolic blood pressure 68 mm[Hg] Lauren Mckenzie APRN.DOCUMENT MANAGEMENT ANALYST Work Phone: [facility] 12-20-2023 09:23-0500 Heart rate 74 /min Lauren Mckenzie APRN.DOCUMENT MANAGEMENT ANALYST Work Phone: [facility] 12-20-2023 09:23-0500 Respiratory rate 16 /min Lauren Mckenzie BEHAVIORAL HEALTH CLINICIAN.DOCUMENT MANAGEMENT ANALYST Work Phone: [facility] 12-20-2023 09:23-0500 SaO2% (BldA) [Mass fraction] 96 % Lauren Mckenzie APRN.DOCUMENT MANAGEMENT ANALYST Work Phone: [facility] 12-20-2023 09:23-0500 Systolic blood pressure 124 mm[Hg] Lauren Mckenzie APRN.DOCUMENT MANAGEMENT ANALYST Work Phone: [facility] 07-07-2023 17:43-0400 Body temperature 97.7 [degF] Aly Paco BEHAVIORAL HEALTH CLINICIAN.DOCUMENT MANAGEMENT ANALYST Work Phone: [facility] 07-07-2023 17:43-0400 Body weight 119.75 kg Aly Antonio BEHAVIORAL HEALTH CLINICIAN.DOCUMENT MANAGEMENT ANALYST Work Phone: [facility] 07-07-2023 17:43-0400 Diastolic blood pressure 78 mm[Hg] Aly Antonio BEHAVIORAL HEALTH CLINICIAN.DOCUMENT MANAGEMENT ANALYST Work Phone: [facility] 07-07-2023 17:43-0400 Heart rate 118 /min Aly Antonio BEHAVIORAL HEALTH CLINICIAN.DOCUMENT MANAGEMENT ANALYST Work Phone: [facility] 07-07-2023 17:43-0400 Respiratory rate 18 /min Aly Paco BEHAVIORAL HEALTH CLINICIAN.DOCUMENT MANAGEMENT ANALYST Work Phone: [facility] 07-07-2023 17:43-0400 SaO2% (BldA) [Mass fraction] 98 % Aly Antonio BEHAVIORAL HEALTH CLINICIAN.DOCUMENT MANAGEMENT ANALYST Work Phone: [facility] 07-07-2023 17:43-0400 Systolic blood pressure 124 mm[Hg] Aly Antonio BEHAVIORAL HEALTH CLINICIAN.DOCUMENT MANAGEMENT ANALYST Work Phone: [facility] 12-28-2022 09:53-0500 Body height 184.2 cm Pulm Wstr Work Phone: [facility] 12-28-2022 09:53-0500 Body weight 118.84 kg Pulm Wstr Work Phone: [facility] 12-28-2022 09:53-0500 Heart rate 72 /min Pulm Wstr Work Phone: [facility] 12-28-2022 09:53-0500 Respiratory rate 14 /min Pulm Wstr Work Phone: [facility] 12-28-2022 09:53-0500 SaO2% (BldA) [Mass fraction] 97 % Pulm Wstr Work Phone: [facility] 12-16-2022 14:56-0500 Body height 188 cm Kenneth Beckett MD Work Phone: [facility] 02-08-2023 14:56-0500 Body weight 118.84 kg Kenneth Beckett MD Work Phone: [facility] 12-16-2022 14:56-0500 Diastolic blood pressure 80 mm[Hg] Kenneth Beckett MD Work Phone: [facility] 12-16-2022 14:56-0500 Heart rate 63 /min Kenneth Beckett MD Work Phone: [facility] 12-16-2022 14:56-0500 SaO2% (BldA) [Mass fraction] 98 % Kenneth Beckett MD Work Phone: [facility] 12-16-2022 14:56-0500 Systolic blood pressure 118 mm[Hg] Kenneth Beckett MD Work Phone: [facility] 11-18-2022 10:13-0500 Body weight 118.66 kg Shama Podlogar BEHAVIORAL HEALTH CLINICIAN.DOCUMENT MANAGEMENT ANALYST Work Phone: [facility] 11-18-2022 10:13-0500 Diastolic blood pressure 80 mm[Hg] Shama Podlogar BEHAVIORAL HEALTH CLINICIAN.DOCUMENT MANAGEMENT ANALYST Work Phone: [facility] 11-18-2022 10:13-0500 Heart rate 60 /min Shama Podlogar BEHAVIORAL HEALTH CLINICIAN.DOCUMENT MANAGEMENT ANALYST Work Phone: [facility] 11-18-2022 10:13-0500 Respiratory rate 18 /min Shama Podlogar BEHAVIORAL HEALTH CLINICIAN.DOCUMENT MANAGEMENT ANALYST Work Phone: [facility] 11-18-2022 10:13-0500 SaO2% (BldA) [Mass fraction] 95 % Shama Podlogar BEHAVIORAL HEALTH CLINICIAN.DOCUMENT MANAGEMENT ANALYST Work Phone: [facility] 11-18-2022 10:13-0500 Systolic blood pressure 124 mm[Hg] Shama Podlogar BEHAVIORAL HEALTH CLINICIAN.DOCUMENT MANAGEMENT ANALYST Work Phone: [facility] 10-31-2022 15:07-0500 Body height 188 cm Mariia Laryong BEHAVIORAL HEALTH CLINICIAN.DOCUMENT MANAGEMENT ANALYST Work Phone: [facility] 10-31-2022 15:07-0500 Body temperature 97 [degF] Mariia Larouere BEHAVIORAL HEALTH CLINICIAN.DOCUMENT MANAGEMENT ANALYST Work Phone: [facility] 10-31-2022 15:07-0500 Body weight 121.11 kg Mariia Larouere BEHAVIORAL HEALTH CLINICIAN.DOCUMENT MANAGEMENT ANALYST Work Phone: [facility] 10-31-2022 15:07-0500 Diastolic blood pressure 76 mm[Hg] Mariia Larouere BEHAVIORAL HEALTH CLINICIAN.DOCUMENT MANAGEMENT ANALYST Work Phone: [facility] 10-31-2022 15:07-0500 Heart rate 88 /min Mariia Larouere BEHAVIORAL HEALTH CLINICIAN.DOCUMENT MANAGEMENT ANALYST Work Phone: [facility] 10-31-2022 15:07-0500 Respiratory rate 16 /min Mariia Larouere BEHAVIORAL HEALTH CLINICIAN.DOCUMENT MANAGEMENT ANALYST Work Phone: [facility] 10-31-2022 15:07-0500 SaO2% (BldA) [Mass fraction] 96 % Mariia Larouere BEHAVIORAL HEALTH CLINICIAN.DOCUMENT MANAGEMENT ANALYST Work Phone: [facility] 10-31-2022 15:07-0500 Systolic blood pressure 128 mm[Hg] Mariia Larouere BEHAVIORAL HEALTH CLINICIAN.DOCUMENT MANAGEMENT ANALYST Work Phone: [facility] 09-08-2022 14:37-0400 Body temperature 98.4 [degF] Yennifer Haagen BEHAVIORAL HEALTH CLINICIAN.DOCUMENT MANAGEMENT ANALYST Work Phone: [facility] 09-08-2022 14:37-0400 Diastolic blood pressure 88 mm[Hg] Yennifer Haagen BEHAVIORAL HEALTH CLINICIAN.DOCUMENT MANAGEMENT ANALYST Work Phone: [facility] 09-08-2022 14:37-0400 Heart rate 70 /min Yennifer Haagen BEHAVIORAL HEALTH CLINICIAN.DOCUMENT MANAGEMENT ANALYST Work Phone: [facility] 09-08-2022 14:37-0400 Respiratory rate 18 /min Yennifer Haagen BEHAVIORAL HEALTH CLINICIAN.DOCUMENT MANAGEMENT ANALYST Work Phone: [facility] 09-08-2022 14:37-0400 SaO2% (BldA) [Mass fraction] 95 % Yennifer Haagen BEHAVIORAL HEALTH CLINICIAN.DOCUMENT MANAGEMENT ANALYST Work Phone: [facility] 09-08-2022 14:37-0400 Systolic blood pressure 126 mm[Hg] Yennifer Worrell BEHAVIORAL HEALTH CLINICIAN.DOCUMENT MANAGEMENT ANALYST Work Phone: [facility] 08-11-2022 18:28-0400 Body temperature 98.2 [degF] Becki Praisler-Wood BEHAVIORAL HEALTH CLINICIAN.DOCUMENT MANAGEMENT ANALYST Work Phone: [facility] 08-11-2022 18:28-0400 Body weight 118.66 kg Becki Praisler-Wood BEHAVIORAL HEALTH CLINICIAN.DOCUMENT MANAGEMENT ANALYST Work Phone: [facility] 08-11-2022 18:28-0400 Diastolic blood pressure 80 mm[Hg] Becki Praisler-Wood BEHAVIORAL HEALTH CLINICIAN.DOCUMENT MANAGEMENT ANALYST Work Phone: [facility] 08-11-2022 18:28-0400 Heart rate 66 /min Becki Praisler-Wood BEHAVIORAL HEALTH CLINICIAN.DOCUMENT MANAGEMENT ANALYST Work Phone: [facility] 08-11-2022 18:28-0400 Respiratory rate 16 /min Becki Praisler-Wood BEHAVIORAL HEALTH CLINICIAN.DOCUMENT MANAGEMENT ANALYST Work Phone: [facility] 08-11-2022 18:28-0400 SaO2% (BldA) [Mass fraction] 96 % Becki Praisler-Wood BEHAVIORAL HEALTH CLINICIAN.DOCUMENT MANAGEMENT ANALYST Work Phone: [facility] 08-11-2022 18:28-0400 Systolic blood pressure 122 mm[Hg] Becki Praisler-Wood BEHAVIORAL HEALTH CLINICIAN.DOCUMENT MANAGEMENT ANALYST Work Phone: [facility] 05-25-2022 16:56-0400 Body temperature 98.6 [degF] Aly Antonio BEHAVIORAL HEALTH CLINICIAN.DOCUMENT MANAGEMENT ANALYST Work Phone: [facility] 05-25-2022 16:56-0400 Body weight 117.57 kg Aly Antonio BEHAVIORAL HEALTH CLINICIAN.DOCUMENT MANAGEMENT ANALYST Work Phone: [facility] 05-25-2022 16:56-0400 Diastolic blood pressure 84 mm[Hg] Aly Antonio BEHAVIORAL HEALTH CLINICIAN.DOCUMENT MANAGEMENT ANALYST Work Phone: [facility] 05-25-2022 16:56-0400 Heart rate 78 /min Aly Antonio BEHAVIORAL HEALTH CLINICIAN.DOCUMENT MANAGEMENT ANALYST Work Phone: [facility] 05-25-2022 16:56-0400 Respiratory rate 20 /min Aly Antonio BEHAVIORAL HEALTH CLINICIAN.DOCUMENT MANAGEMENT ANALYST Work Phone: [facility] 05-25-2022 16:56-0400 SaO2% (BldA) [Mass fraction] 96 % Aly Antonio BEHAVIORAL HEALTH CLINICIAN.DOCUMENT MANAGEMENT ANALYST Work Phone: [facility] 05-25-2022 16:56-0400 Systolic blood pressure 124 mm[Hg] Aly Antonio BEHAVIORAL HEALTH CLINICIAN.DOCUMENT MANAGEMENT ANALYST Work Phone: [facility] Encounters Encounter Date Encounter Type Care Provider Facility Start: 07-18-2025 End: 07-18-2025 Follow-up encounter Jonathon Cote LPN [facility] Start: 07-17-2025 End: 07-17-2025 Office outpatient visit 15 minutes Yennifer Worrell BEHAVIORAL HEALTH CLINICIAN.DOCUMENT MANAGEMENT ANALYST Work Phone: [facility] Comment on above: URI, acute (Primary Dx); Fatigue, unspecified type; Acute cough Start: 07-17-2025 End: 07-17-2025 ambulatory [facility] Facility:[facility] Start: 07-17-2025 End: 07-17-2025 ambulatory Nurse Intm/Famp Triage [facility] Work Phone: Nurse Phone Triage Comment on above: Breathing Problem Start: 06-18-2025 Non-patient / Non-visit Dr. Fabien SOMERS -[facility] Start: 06-18-2025 End: 06-18-[address] Kenneth Beckett MD Work Phone: -Cardiovascular Services Start: 06-18-2025 End: 06-18-2025 Patient encounter procedure Shashi EATON -Cardiovascular Services Work Phone: Start: 06-18-2025 End: 06-18-2025 ambulatory Shashi Yeh Facility:[facility] Start: 05-28-2025 End: 05-28-2025 Patient encounter procedure Shashi EATON -[facility] Work Phone: Start: 05-28-2025 End: 05-28-[address] Kenneth Beckett MD Work Phone: -[facility] Start: 05-04-2025 End: 05-04-2025 Emergency department patient visit Dr. Kenneth Beckett MD Work Phone: -Emergency Department Work Phone: Start: 05-02-2025 End: 05-02-[address] Kenneth Beckett MD Work Phone: -Laboratory Start: 05-02-2025 End: 05-02-2025 Patient encounter procedure Shashi Yeh PA -Laboratory Work Phone: Start: 05-02-2025 End: 05-02-2025 Patient encounter procedure Shashi Yeh PA -[facility] Work Phone: Start: 05-02-2025 End: 05-02-[address] Kenneth Beckett MD Work Phone: [facility] Work Phone: Start: 05-02-2025 End: 05-02-2025 ambulatory Kenneth Sophy Facility:[facility] Start: 04-30-2025 End: 04-30-2025 Emergency department patient visit Dr. Kenneth Beckett MD Work Phone: -Emergency Department Work Phone: Start: 04-30-2025 End: 04-30-2025 Office outpatient visit 25 minutes Yennifer Worrell APRN.DOCUMENT MANAGEMENT ANALYST Work Phone: [facility] Comment on above: Paroxysmal atrial fi brillation (HCC) (Primary Dx); Dizziness and giddiness Start: 04-30-2025 End: 04-30-2025 ambulatory YENNIFER WORRELL Facility:[facility] Start: 04-24-2025 End: 04-25-2025 Follow-up encounter Yennifer Worrell APRN.DOCUMENT MANAGEMENT ANALYST Work Phone: [facility] Comment on above: Results Start: 04-23-2025 Encounter for genera l adult medical examination without abnormal findings HANH SHARMA [facility] Start: 04-23-2025 End: 04-23-2025 Initial preventive medicine new patient 40-64yrs Yennifer Anaid BEHAVIORAL HEALTH CLINICIAN.DOCUMENT MANAGEMENT ANALYST Work Phone: [facility] [place] Comment on above: Wellness examination (Primary Dx); Anxiety and depression; Hyperlipidemia, mixed; Screening for colon cancer Start: 04-23-2025 End: 04-23-2025 Patient encounter status Yennifer Worrell BEHAVIORAL HEALTH CLINICIAN.DOCUMENT MANAGEMENT ANALYST Work Phone: [facility] Start: 04-23-2025 End: 04-23-2025 ambulatory YENNIFERRossy WORRELL Facility:[facility] Start: 03-16-2025 End: 03-16-2025 Refill Kenneth Beckett MD Work Phone: [facility] [place] Comment on above: Refill Request Start: 02-19-2025 End: 02-19-2025 ambulatory HANH SHARMA Facility:[facility] Start: 02-19-2025 End: 02-19-2025 Office outpatient visit 15 minutes Hanh Sharma BEHAVIORAL HEALTH CLINICIAN.DOCUMENT MANAGEMENT ANALYST Work Phone: [facility] [place] Comment on above: Acute maxillary sinu sitis, recurrence not specified (Primary Dx) Start: 02-12-2025 End: 02-12-2025 ambulatory ROMEL MAS Facility:[facility] Start: 02-12-2025 End: 02-12-2025 Patient encounter procedure Romel Mas Work Phone: Podiatry Comment on above: 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); Foot pain, left; Callus of foot Start: 01-26-2025 End: 01-26-2025 Follow-up encounter Hanh Sharma BEHAVIORAL HEALTH CLINICIAN.DOCUMENT MANAGEMENT ANALYST Work Phone: [facility] [place] Start: 01-22-2025 End: 01-22-2025 Subsequent hospital visit by physician Issa [facility] [place] Work Phone: Radiology Comment on above: Foot pain, left [M79 .672] Start: 01-22-2025 End: 01-22-2025 ambulatory HANH A SUPPAN Facility:[facility] Start: 01-22-2025 End: 01-22-2025 Office outpatient visit 15 minutes Hanh Sharma APRN.DOCUMENT MANAGEMENT ANALYST Work Phone: [facility] [place] Comment on above: Foot pain, left (Aviva teri Dx); Acute maxillary sinusitis, recurrence not specified Start: 01-15-2025 End: 01-15-[address] Ole Moss MD -[facility] Work Phone: Start: 01-15-2025 End: 01-15-2025 ambulatory [facility] Facility:[facility] Start: 12-25-2024 End: 12-25-2024 Emergency department patient visit KENNETH Karthik [facility] Facility:[facility] Comment on above: Bursitis of other bu rsa of right knee (Primary Dx) Start: 11-22-2024 End: 11-22-2024 Telephone encounter Kenneth Beckett MD Work Phone: [facility] [place] Comment on above: Results Start: 11-21-2024 End: 11-21-2024 ambulatory [facility] Facility:[facility] Start: 10-30-2024 End: 10-30-2024 Postop follow up visit related to original px Jhon Garcia PA-C Work Phone: [facility] Orthopedics and Sports Medicine - [place] Comment on above: Carpal tunnel syndro me of left wrist (Primary Dx); S/P endoscopic carpal tunnel release; DRUJ (distal radioulnar joint) post-traumatic arthritis, left Start: 10-30-2024 End: 10-30-2024 ambulatory JHON GARCIA [facility] Start: 10-20-2024 End: 10-20-2024 Refill Kenneth Beckett MD Work Phone: [facility] Comment on above: Refill Request S/P carpal tunnel re lease (Primary Dx) Start: 10-12-2024 End: 10-12-2024 ambulatory EDINSON ALANIS [facility] Start: 10-03-2024 End: 10-03-2024 Telephone encounter Edinson Alanis MD Work Phone: [facility] Orth[facility]ics [facility] Sports Medicine - [place] [facility] Comment on above: Other (FMLA/STD Krishan rwork) Start: 10-02-2024 End: 10-02-2024 ambulatory Rafa Rodriguez PA-C Work Phone: [facility] Orthopedics and Sports [facility] Start: 09-05-2024 End: 09-05-2024 Emergency department patient visit Stephen Kincaid DO Work Phone: [facility] Start: 09-04-2024 End: 09-04-2024 Office outpatient new 30 minutes Edinson Alanis MD Work Phone: [facility] Sports [facility] Comment on above: Carpal tunnel syndro me of left wrist (Primary Dx); Bilateral wrist pain; DRUJ (distal radioulnar joint) post-traumatic arthritis, left; DRUJ (distal radioulnar joint) post-traumatic arthritis, right; Carpal tunnel syndrome on right Start: 09-04-2024 End: 09-04-2024 ambulatory EDINSON ALANIS [facility] Start: 08-06-2024 End: 08-07-2024 [facility] Start: 05-29-2024 End: 05-29-2024 Subsequent hospital visit by physician Issa [facility] [place] Work Phone: Radiology Comment on above: Acute cough [R05.1] Start: 05-29-2024 End: 05-29-2024 Patient encounter procedure Vale Braden BEHAVIORAL HEALTH CLINICIAN.DOCUMENT MANAGEMENT ANALYST Work Phone: [facility] Comment on above: Acute cough (Primary Dx); Rhinosinusitis Start: 05-08-2024 Telephone encounter Kenneth Beckett MD Work Phone: [facility] [place] Comment on above: Results Start: 04-12-2024 Telephone encounter Kenneth Beckett MD Work Phone: [facility] [place] Comment on above: Orders Start: 04-01-2024 Emergency department patient visit KENNETH BECKETT Facility:[facility] Start: 03-10-2024 Refill Kenneth Beckett MD Work Phone: [facility] [place] Comment on above: Refill Request Start: 01-10-2024 Refill Kenneth Beckett MD Work Phone: Family [facility] [place] Comment on above: Refill Request Start: 12-29-2023 Telephone encounter Kenneth Beckett MD Work Phone: [facility] Comment on above: Insurance Authorizat ion (Acyclovir) Start: 12-27-2023 End: 12-27-2023 Subsequent hospital visit by physician Xr [facility] [place] Work Phone: Radiology Comment on above: Bronchitis [J40] Start: 12-27-2023 End: 12-27-2023 Patient encounter procedure Kenneth Beckett MD Work Phone: [facility] Comment on above: Bronchitis (Primary Dx); Paroxysmal atrial fibrillation (HCC); Hyperlipidemia, mixed; Hypertriglyceridemia; Recurrent cold sores Start: 12-27-2023 Telephone encounter Kenneth Beckett MD Work Phone: [facility] Comment on above: Results Start: 12-22-2023 End: 12-22-2023 Patient encounter procedure Vale Braden APRN.DOCUMENT MANAGEMENT ANALYST Work Phone: [facility] Comment on above: Acute otitis media, right (Primary Dx); URI, acute Start: 12-21-2023 Telephone encounter Lauren Mckenzie APRN.DOCUMENT MANAGEMENT ANALYST Work Phone: [facility] Comment on above: Results Start: 12-20-2023 End: 12-20-2023 Patient encounter procedure Lauren Mckenzie APRN.DOCUMENT MANAGEMENT ANALYST Work Phone: [facility] Comment on above: URI, acute (Primary Dx); Acute cough Start: 12-20-2023 End: 12-20-2023 Subsequent hospital visit by physician [facility] [place] Work Phone: Radiology Comment on above: Acute cough [R05.1] Start: 12-02-2023 Telephone encounter Kenneth Beckett MD Work Phone: Pulmonology [facility] Comment on above: Results Start: 12-01-2023 End: 01-24-2024 Subsequent hospital visit by physician [facility] Work Phone: Radiology Comment on above: Acute pain of left s xavierulder [M25.512] Start: 09-28-2023 Refill Kenneth Beckett MD Work Phone: [facility] Comment on above: Refill Request Start: 08-16-2023 Chart abstracting Kenneth Jefferson MD Work Phone: [facility] Start: 07-26-2023 Telephone encounter Kenneth Beckett MD Work Phone: [facility] Comment on above: Results Start: 07-19-2023 End: 07-19-2023 Orders Only Vale Braden BEHAVIORAL HEALTH CLINICIAN.DOCUMENT MANAGEMENT ANALYST Work Phone: [facility] Comment on above: Leg pain, left (Prim alex Dx) Results Leg pain, left [M79. 605] Left leg swelling [M 79.89] Start: 07-16-2023 Telephone encounter Kenneth Beckett MD Work Phone: [facility] Comment on above: Orders Start: 07-07-2023 End: 07-07-2023 Patient encounter procedure Aly Antonio BEHAVIORAL HEALTH CLINICIAN.DOCUMENT MANAGEMENT ANALYST Work Phone: [facility] Comment on above: Viral syndrome (Prim alex Dx); Sore throat Start: 04-06-2023 Refill Kenneth Beckett MD Work Phone: [facility] [place] Comment on above: Refill Request Start: 02-17-2023 End: 02-17-2023 Nursing evaluation of patient and report Mi Nurse Work Phone: [facility] [place] Comment on above: Screening-pulmonary TB (Primary Dx) Start: 02-15-2023 End: 02-15-2023 Nursing evaluation of patient and report Mi Nurse Work Phone: [facility] Comment on above: Screening-pulmonary TB (Primary Dx) Start: 02-03-2023 Telephone encounter Kenneth Beckett MD Work Phone: [facility] Comment on above: Orders Start: 01-21-2023 Refill Kenneth Beckett MD Work Phone: [facility] Comment on above: Refill Request Start: 12-28-2022 End: 12-28-2022 ambulatory [facility] Work Phone: [facility] Comment on above: Spirometry Start: 12-28-2022 End: 12-28-2022 Patient encounter procedure [facility] Work Phone: [facility] Start: 12-16-2022 End: 12-16-2022 Subsequent hospital visit by physician [facility] [place] Work Phone: Radiology Comment on above: SOB (shortness of br eath) [R06.02] Start: 12-16-2022 End: 12-16-2022 Patient encounter procedure Kenneth Beckett MD Work Phone: [facility] Comment on above: SOB (shortness of br eath) (Primary Dx); Paroxysmal atrial fibrillation (HCC); Anxiety and depression Start: 11-18-2022 End: 11-18-2022 Patient encounter procedure Shama Mary BEHAVIORAL HEALTH CLINICIAN.DOCUMENT MANAGEMENT ANALYST Work Phone: [facility] Comment on above: Anxiety and depressi on (Primary Dx) Start: 10-31-2022 End: 10-31-2022 Patient encounter procedure Mariia Carroll APRN.DOCUMENT MANAGEMENT ANALYST Work Phone: 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) Start: 09-08-2022 End: 09-08-2022 Office outpatient visit 15 minutes Yennifer Worrell APRN.DOCUMENT MANAGEMENT ANALYST Work Phone: [facility] [place] Comment on above: Sinobronchitis (Prim alex Dx); Bronchitis Start: 09-08-2022 ambulatory Yennifer Worrell APRN.DOCUMENT MANAGEMENT ANALYST Work Phone: [facility] Comment on above: Fatigue; Body aches Start: 08-11-2022 End: 08-11-2022 Subsequent hospital visit by physician [facility] [place] Work Phone: Radiology Comment on above: Foot pain, left [M79 .672] Start: 08-11-2022 End: 08-11-2022 Patient encounter procedure Becki MurraySarahy CARO.DOCUMENT MANAGEMENT ANALYST Work Phone: [facility] Comment on above: Foot pain, left (Aviva teri Dx) Start: 07-02-2022 Patient encounter status Mika Beckett MD Work Phone: [facility] Start: 07-02-2022 Telephone encounter Kenneth Beckett MD Work Phone: [facility] Comment on above: Orders Start: 05-25-2022 End: 05-25-2022 Patient encounter procedure Aly King GORDO.DOCUMENT MANAGEMENT ANALYST Work Phone: [facility] Comment on above: Skin infection (Prim alex Dx) Start: 01-08-2022 End: 01-08-2022 Subsequent hospital visit by physician Xr [facility] [employer] Work Phone: Radiology Comment on above: Cough [R05.9] Start: 12-10-2021 End: 12-10-2021 Subsequent hospital visit by physician [facility] [employer] Work Phone: Radiology Comment on above: SOB (shortness of br eath) [R06.02] Start: 12-01-2021 End: 12-01-2021 Subsequent hospital visit by physician [facility] [employer] Work Phone: Radiology Comment on above: COVID-19 [U07.1] Start: 06-05-2021 End: 06-09-2021 ambulatory [facility] Start: 05-29-2021 End: 06-02-2021 ambulatory [facility] Start: 04-02-2021 End: 04-02-2021 Subsequent hospital visit by physician Xr [facility] [employer] Work Phone: Radiology Comment on above: Foot pain, left [M79 .672] Start: 06-01-2017 Orders Only Ritchie york MD Work Phone: Appointment Center Comment on above: Screening for colon cancer (Primary Dx) Procedures Date Procedure Procedure Detail Performing Clinician Start: 07-17-2025 COVID & INFLUENZA A/B & RSV PCR, ROUTINE Yennifer Worrell BEHAVIORAL HEALTH CLINICIAN.DOCUMENT MANAGEMENT ANALYST Work Phone: Start: 05-04-2025 X-ray of chest, PA and lateral views Dr. Kenneth Beckett MD Work Phone: Start: 05-04-[address] Kenneth Beckett MD Work Phone: Start: 04-30-[address] Kenneth Beckett MD Work Phone: Start: 04-30-2025 Plain chest X-ray Dr. Kenneth Beckett MD Work Phone: Start: 04-23-2025 Lipid 1996 panel - Serum or Plasma Yennifer Worrell BEHAVIORAL HEALTH CLINICIAN.DOCUMENT MANAGEMENT ANALYST Work Phone: Start: 01-15-2025 Evaluation of diagnostic study results Dr. Kenneth Beckett MD Work Phone: Start: 12-25-2024 Radiologic examination knee 1/2 views Chandrika COLLINSC Work Phone: Start: 05-29-2024 Radiologic exam chest 2 views Vale Braden BEHAVIORAL HEALTH CLINICIAN.DOCUMENT MANAGEMENT ANALYST Work Phone: Start: 05-02-2024 Lipid 1996 panel - Serum or Plasma Kenneth Beckett MD Work Phone: Start: 12-27-2023 Radiologic exam chest 2 views Kenneth Beckett MD Work Phone: Start: 12-20-2023 Radiologic exam chest 2 views Lauren Mckenzie BEHAVIORAL HEALTH CLINICIAN.DOCUMENT MANAGEMENT ANALYST Work Phone: Start: 12-01-2023 Radex shoulder complete minimum 2 views Kenneth Beckett MD Work Phone: Start: 07-26-2023 Lipid 1996 panel - Serum or Plasma Kenneth Beckett MD Work Phone: Start: 07-19-2023 Radex fingr minimum 2 views Pam Verdugo PAJameeC Work Phone: Start: 07-19-2023 Dup-scan xtr veins unilateral/limited study Vale Braden APRN.DOCUMENT MANAGEMENT ANALYST Work Phone: Start: 07-07-2023 COVID & INFLUENZA A/B NAAT, ROUTINE Aly Antonio APRN.DOCUMENT MANAGEMENT ANALYST Work Phone: Start: 07-07-2023 STREP A MOLECULAR (POC) Vale PETER RN.DOCUMENT MANAGEMENT ANALYST Work Phone: Start: 12-28-2022 Brncdilat rspse spmtry pre&post-brncdilat admn Kenneth Beckett MD Work Phone: Start: 12-16-2022 Radiologic exam chest 2 views Kenneth Beckett MD Work Phone: Start: 08-11-2022 Radex foot complete minimum 3 views Becki Riggins BEHAVIORAL HEALTH CLINICIAN.DOCUMENT MANAGEMENT ANALYST Work Phone: Start: 01-08-2022 Radiologic exam chest 2 views Kenneth Beckett MD Work Phone: Start: 12-10-2021 Radiologic exam chest 2 views Lauren Mckenzie BEHAVIORAL HEALTH CLINICIAN.DOCUMENT MANAGEMENT ANALYST Work Phone: Start: 12-01-2021 Radiologic exam chest 2 views Leeanna Morales PA-C Work Phone: Start: 09-29-2021 Colonoscopy Aly Antonio APRN.C SUCTION OPERATOR Work Phone: Start: 04-02-2021 Radex foot complete minimum 3 views Kenneth Beckett MD Work Phone: Start: 04-02-2021 Adult depression screening assessment Aly Antonio APRN.DOCUMENT MANAGEMENT ANALYST Work Phone: History of decompres sherrie of median nerve S/P carpal tunnel release Edinson Alanis MD Work Phone: History of decompres sherrie of median nerve S/P endoscopic carpal tunnel release Jhon Garcia PA-C Work Phone: Plan of Treatment Date Care Activity Detail Author Start: 2037 RSV Vaccine (1 - 1-dose 75+ series) RSV Vaccine (1 - 1-dose 75+ series) [facility] Start: 08-14-2033 DTaP/Tdap/Td Vaccines (4 - Td or Tdap) DTaP/Tdap/Td Vaccines (4 - Td or Tdap) [facility] Start: 08-14-2033 Tetanus vaccination [facility] Start: 08-14-2033 Urine microalbumin profile DTaP,Tdap,Td Vaccine (4 - Td or Tdap) [facility] Start: 09-29-2031 Screening for malignant neoplasm of colon [facility] Start: 04-23-2030 Lipid panel Lipid Screening [facility] Start: 07-13-2029 Urine microalbumin profile [facility] Start: 05-02-2029 Lipid panel Lipid Screening [facility] Start: 07-26-2028 Lipid 1996 panel - Serum or Plasma Lipid Screening [facility] Start: 07-26-2028 Lipid panel Lipid Screening [facility] Start: 07-26-2028 Prostate Cancer Screening Discussion Prostate Cancer Screening Discussion [facility] Start: 07-26-2028 Prostate specific antigen measurement Prostate Cancer Screening Discussion [facility] Start: 04-23-2028 Diabetes Screening Diabetes Screening [facility] Start: 07-22-2027 LIPID SCREEN LIPID SCREEN [facility] Start: 12-13-2026 Diabetes Screening Diabetes Screening [facility] Start: 07-26-2026 Diabetes Screening Diabetes Screening [facility] Start: 04-23-2026 Covid-19 Vaccine ( season) Covid-19 Vaccine ( season) [facility] Comment on above: Postponed from 07/09/2024 (Declined at t his time) Start: 04-23-2026 HIV screening HIV Screening [facility] Comment on above: Postponed from 1980 (Declined at t his time) Start: 04-23-2026 Pneumococcal Vaccine: 50+ (1 of 1 - PCV) Pneumococcal Vaccine: 50+ (1 of 1 - PCV) [facility] Comment on above: Postponed from 2012 (Declined at t his time) Start: 04-23-2026 Shingrix Vaccine (1 of 2) Shingrix Vaccine (1 of 2) [facility] Comment on above: Postponed from 2012 (Declined at t his time) Start: 04-01-2026 LIPID SCREEN LIPID SCREEN [facility] Start: 12-16-2025 DIABETES SCREEN DIABETES SCREEN [facility] Start: 09-08-2025 DIABETES SCREEN DIABETES SCREEN [facility] Start: 07-22-2025 DIABETES SCREEN DIABETES SCREEN [facility] Start: 07-09-2025 Influenza vaccination [facility] Start: 05-28-2025 Evaluation of diagnostic study results [facility] Start: 05-04-2025 [facility] Start: 05-04-2025 [facility] Start: 05-02-2025 Evaluation of diagnostic study results [facility] Start: 04-30-2025 [facility] Start: 04-23-2025 End: 07-23-2025 CBC W Auto Differential panel - Blood [facility] Comment on above: Expected: 04/23/2025, Expires: Start: 04-23-2025 End: 07-23-2025 Comprehensive metabolic 2000 panel - Serum or Plasma [facility] Comment on above: Expected: 04/23/2025, Expires: Start: 04-23-2025 End: 07-23-2025 Lipid 1996 panel - Serum or Plasma [facility] Work Phone: Comment on above: Expected: 04/23/2025, Expires: Start: 02-12-2025 End: 02-12-2025 Patient encounter procedure Podiatry Comment on above: Foot pain, left [M79.672] Start: 02-05-2025 End: 02-05-2025 Patient encounter procedure 02/05/2025 10:00 AM EDT Office Visit [facility] [place] [address] [place] [address] Hanh Sharma, BEHAVIORAL HEALTH CLINICIAN.DOCUMENT MANAGEMENT ANALYST [address] [place] [address] 2 week f/u sinusitis [facility] [place] Comment on above: 2 week f/u sinusitis Start: 01-08-2025 DIABETES SCREEN DIABETES SCREEN [facility] Start: 10-30-2024 End: 10-30-2024 Patient encounter procedure [facility] - [facility] Start: 10-20-2024 End: 10-20-2024 Admission to same day surgery center [facility] Comment on above: ENDOSCOPIC LEFT CARPAL TUNNEL RELEASE, L EFT ULNOCARPAL JOINT INJECTION [57169 (CPT )] Start: 10-20-2024 End: 10-20-2024 Anesthesia consultation 10/20/2024 2:15 PM EST Anesthesia Event [facility] [address] [id number] Morena Marmolejo APRN - DOCUMENT MANAGEMENT ANALYST [address] [place] [address] [place] [address] [facility] Start: 10-20-2024 End: 10-20-2024 Arthrocentesis aspir&/inj interm jt/burs w/o us [facility] Operating Room Start: 10-20-2024 End: 10-20-2024 Ndsc wrst surg w/rls transvrs carpl ligm [facility] Operating Room Start: 10-20-2024 Subsequent hospital visit by physician [facility] Start: 10-20-2024 End: 10-20-2024 Arthrocentesis aspir&/inj interm jt/burs w/o us ARTHROCENTESIS ASPIRATION AND/OR INJECTION INTERMEDIATE JOINT OR [facility]URSA Pain in right wrist Pain in left wrist Carpal tunnel syndrome, left upper limb Post-traumatic osteoarthritis, left wrist Post-traumatic osteoarthritis, right wrist Carpal tunnel syndrome, right upper limb 10/20/2024 11:43 AM EST [facility] Operating Room Start: 10-20-2024 End: 10-20-2024 Ndsc wrst surg w/rls transvrs carpl ligm ENDOSCOPIC RELEASE CARPAL TUNNEL Pain in right wrist Pain in left wrist Carpal tunnel syndrome, left upper limb Post-traumatic osteoarthritis, left wrist Post-traumatic osteoarthritis, right wrist Carpal tunnel syndrome, right upper limb 10/20/2024 11:43 AM EST [facility] Operating Room Start: 10-12-2024 End: 10-12-2024 Admission to establishment 10/12/2024 2:00 PM EST Pre-Admission Testing [facility] Pre-Admit Testing [address] [place] [id number] [facility] Start: 09-29-2024 Colonoscopy COLONOSCOPY [facility] Start: 09-29-2024 COLORECTAL CANCER SCREENING COLORECTAL CANCER SCREENING [facility] Start: 09-29-2024 Screening for malignant neoplasm of colon [facility] Start: 08-11-2024 HIV Screening HIV Screening [facility] Comment on above: Postponed from 1980 (Declined at t his time) Start: 08-11-2024 HIV screening HIV Screening [facility] Comment on above: Postponed from 1980 (Declined at t his time) Start: 08-09-2024 Covid-19 Vaccine ( season) Covid-19 Vaccine ( season) [facility] Comment on above: Postponed from 07/09/2023 (Declined at t his time) Start: 08-09-2024 Covid-19 Vaccine (2 - Booster for Garrett series) Covid-19 Vaccine (2 - Booster for Garrett series) [facility] Comment on above: Postponed from 06/11/2021 (Declined at t his time) Start: 08-09-2024 Shingrix Vaccine (1 of 2) Shingrix Vaccine (1 of 2) [facility] Comment on above: Postponed from 2012 (Declined at t his time) Start: 07-09-2024 COVID-19 VACCINE ( season) COVID-19 VACCINE ( season) [facility] Start: 07-09-2024 COVID-19 Vaccine ( season) COVID-19 Vaccine ( season) [facility] Start: 07-09-2024 Covid-19 Vaccine ( season) Covid-19 Vaccine ( season) [facility] Start: 07-09-2024 Covid-19 Vaccine ( season) Covid-19 Vaccine ( season) [facility] Start: 07-09-2024 Influenza vaccination [facility] Start: 05-15-2024 PROSTATE CANCER SCREENING DISCUSSION PROSTATE CANCER SCREENING DISCUSSION [facility] [facility] Start: 05-07-2024 Influenza vaccination Influenza Vaccine (#1) [facility] Comment on above: Postponed from 07/09/2023 (Declined at t his time) Start: 04-12-2024 End: 07-12-2024 Lipid 1996 panel - Serum or Plasma LIPID PANEL BASIC Lab Routine Hyperlipidemia, mixed Expected: 04/12/2024, Expires: 07/12/2024 [facility] Work Phone: Comment on above: Expected: 04/12/2024, Expires: 4 Start: 12-27-2023 End: 03-27-2024 Basic metabolic 2000 panel - Serum or Plasma BASIC METABOLIC PNL Lab Routine Bronchitis Expected: 12/27/2023, Expires: 03/27/2024 [facility] Work Phone: Comment on above: Expected: 12/27/2023, Expires: 4 Start: 12-27-2023 End: 03-27-2024 CBC W Auto Differential panel - Blood CBC + DIFF Lab Routine Bronchitis Expected: 12/27/2023, Expires: 03/27/2024 [facility] Work Phone: Comment on above: Expected: 12/27/2023, Expires: 4 Start: 12-20-2023 End: 01-03-2024 COVID & INFLUENZA A/B & RSV NAAT, ROUTINE [facility] Work Phone: Comment on above: Expected: 12/20/2023, Expires: 4 Start: 07-17-2023 End: 09-16-2023 Basic metabolic 2000 panel - Serum or Plasma BASIC METABOLIC PNL Lab Routine Paroxysmal atrial fibrillation (HCC) Anxiety and depression Expected: 07/17/2023, Expires: 09/16/2023 [facility] Work Phone: Comment on above: Expected: 07/17/2023, Expires: 3 Start: 07-17-2023 End: 09-16-2023 CBC panel - Blood by Automated count CBC Lab Routine Paroxysmal atrial fibrillation (HCC) Anxiety and depression Expected: 07/17/2023, Expires: 09/16/2023 [facility] Work Phone: Comment on above: Expected: 07/17/2023, Expires: 3 Start: 07-17-2023 End: 09-16-2023 Lipid 1996 panel - Serum or Plasma LIPID PANEL BASIC Lab Routine Paroxysmal atrial fibrillation (HCC) Hyperlipidemia, mixed Hypertriglyceridemia Expected: 07/17/2023, Expires: 09/16/2023 [facility] Work Phone: Comment on above: Expected: 07/17/2023, Expires: 3 Start: 07-17-2023 End: 09-16-2023 PSA/PROSTSPECAG SCRN PSA/PROSTSPECAG SCRN Lab Routine Screening for prostate cancer Expected: 07/17/2023, Expires: 09/16/2023 [facility] Work Phone: Comment on above: Expected: 07/17/2023, Expires: 3 Start: 07-09-2023 Influenza vaccination [facility] Start: 12-16-2022 End: 02-15-2023 CBC W Auto Differential panel - Blood [facility] Work Phone: Comment on above: Expected: 12/16/2022, Expires: 3 Start: 12-16-2022 End: 02-15-2023 Comprehensive metabolic 2000 panel - Serum or Plasma [facility] Work Phone: Comment on above: Expected: 12/16/2022, Expires: 3 Start: 12-16-2022 End: 02-15-2023 Thyrotropin [Units/volume] in Serum or Plasma [facility] Work Phone: Comment on above: Expected: 12/16/2022, Expires: 3 Start: 2022 RSV High Risk: (Elderly (60+) or Population) (1 - Risk 60-74 years 1-dose series) RSV High Risk: (Elderly (60+) or Population) (1 - Risk 60-74 years 1-dose series) [facility] Start: 2022 RSV Immunization for Adults (1 - Risk 60-74 years 1-dose series) RSV Immunization for Adults (1 - Risk 60-74 years 1-dose series) [facility] Start: 2022 RSV Vaccine (1 - 1-dose 60+ series) RSV Vaccine (1 - 1-dose 60+ series) [facility] Start: 11-08-2022 DEPRESSION ASSESSMENT DEPRESSION ASSESSMENT [facility] Start: 09-29-2022 Screening for malignant neoplasm of colon COLORECTAL CANCER SCREENING DISCUSSION [facility] Start: 09-08-2022 End: 11-08-2022 CBC W Auto Differential panel - Blood [facility] Work Phone: Comment on above: Expected: 09/08/2022, Expires: 3 Start: 09-08-2022 End: 11-08-2022 Comprehensive metabolic 2000 panel - Serum or Plasma [facility] Work Phone: Comment on above: Expected: 09/08/2022, Expires: 3 Start: 08-11-2022 End: 10-11-2022 Urate [Mass/volume] in Serum or Plasma URIC ACID BLOOD Lab Routine Foot pain, left Expected: 08/11/2022, Expires: 10/11/2022 [facility] Work Phone: Comment on above: Expected: 08/11/2022, Expires: 2 Start: 07-09-2022 Influenza vaccination INFLUENZA (#1) [facility] Start: 07-03-2022 End: 09-02-2022 CBC W Auto Differential panel - Blood CBC + DIFF Lab Routine Well adult exam Expected: 07/03/2022, Expires: 09/02/2022 [facility] Work Phone: Comment on above: Expected: 07/03/2022, Expires: 2 Start: 07-03-2022 End: 09-02-2022 Comprehensive metabolic 2000 panel - Serum or Plasma COMP METABOLIC PANEL Lab Routine Well adult exam Expected: 07/03/2022, Expires: 09/02/2022 [facility] Work Phone: Comment on above: Expected: 07/03/2022, Expires: 2 Start: 07-03-2022 End: 09-02-2022 Lipid 1996 panel - Serum or Plasma LIPID PANEL BASIC Lab Routine Well adult exam Expected: 07/03/2022, Expires: 09/02/2022 [facility] Work Phone: Comment on above: Expected: 07/03/2022, Expires: 2 Start: 04-02-2022 Adult depression screening assessment DEPRESSION SCREENING [facility] Start: 11-08-2021 DEPRESSION ASSESSMENT DEPRESSION ASSESSMENT [facility] Start: 06-11-2021 COVID-19 VACCINE (2 - Booster for Garrett series) COVID-19 VACCINE (2 - Booster for Garrett series) [facility] Start: 2012 Pneumococcal vaccination Pneumococcal Vaccine (1 of 1 - PCV) [facility] Start: 2012 Pneumococcal Vaccine: 50+ (1 of 1 - PCV) Pneumococcal Vaccine: 50+ (1 of 1 - PCV) [facility] Start: 2012 Pneumococcal Vaccine: 50+ Years (1 of 1 - PCV) Pneumococcal Vaccine: 50+ Years (1 of 1 - PCV) [facility] Start: 2012 Prostate specific antigen measurement PROSTATE CANCER SCREENING DISCUSSION [facility] Start: 2012 SHINGRIX VACCINE (1 of 2) SHINGRIX VACCINE (1 of 2) [facility] Start: 2012 Zoster vaccine hzv live for subcutaneous use ZOSTER (SHINGLES) VACCINE (1 of 2) [facility] Start: 2012 Zoster Vaccines (1 of 2) Zoster Vaccines (1 of 2) [facility] Start: 2007 COLOGUARD (FIT-DNA) COLOGUARD (FIT-DNA) [facility] Start: [address] COLONOGRAPHY [facility] Start: 2007 FECAL OCCULT BLOOD FECAL OCCULT BLOOD [facility] Start: 2007 Screening for malignant neoplasm of colon [facility] Start: 2007 SIGMOIDOSCOPY SIGMOIDOSCOPY [facility] Start: 2002 Lipid panel LIPID SCREENING [facility] Start: 1980 Diabetes mellitus screening Diabetes Screening [facility] Start: 1980 Hepatitis C screening Hepatitis C Screening [facility] Start: 1980 HIV SCREENING HIV SCREENING [facility] Start: 1980 HIV screening HIV Screening [facility] Start: 1977 HIV screening HIV SCREENING DISCUSSION [facility] Start: 1974 Depression Monitoring Depression Monitoring [facility] Start: 1963 MMR Vaccines (1 of 1 - Standard series) MMR Vaccines (1 of 1 - Standard series) [facility] Start: 1962 Hepatitis C screening HEPATITIS C VIRUS SCREENING [facility] Start: 1962 HIV screening HIV Screening [facility] Start: 1962 Lipid panel Lipid Panel [facility] Start: 1962 Screening for malignant neoplasm of colon [facility] Start: 1962 Yearly Adult Physical Yearly Adult Physical [facility] End: 12-16-2023 ECG COMPLETE ECG COMPLETE ECG Routine SOB (shortness of breath) 1 Occurrences starting 12/16/2022 until 12/16/2023 [facility] Work Phone: Comment on above: 1 Occurrences starting 12/16/2022 until 12/16/2023 ECG COMPLETE ECG COMPLETE ECG Routine Paroxysmal atrial fibrillation (HCC) Ordered: 04/30/2025 [facility] Work Phone: Comment on above: Ordered: 04/30/2025 End: 01-15-2024 LUNG DIFFUSION CAPACITY (DLCO) LUNG DIFFUSION CAPACITY (DLCO) PFT Routine SOB (shortness of breath) 1 Occurrences starting 12/16/2022 until 01/15/2024 [facility] Work Phone: Comment on above: 1 Occurrences starting 12/16/2022 until 01/15/2024 End: 01-15-2024 LUNG VOLUMES LUNG VOLUMES PFT Routine SOB (shortness of breath) 1 Occurrences starting 12/16/2022 until 01/15/2024 [facility] Work Phone: Comment on above: 1 Occurrences starting 12/16/2022 until 01/15/[address] [facility] Work Phone: Patient referral [facility] Work Phone: PPD (TB INTRADERMAL 85771) B/O PPD (TB INTRADERMAL 03045) B/O Procedures Routine Screening-pulmonary TB Ordered: 02/03/2023 [facility] Work Phone: Comment on above: Ordered: 02/03/2023 End: 01-15-2024 Radiologic exam chest 2 views XR CHEST 2V FRONTAL/LAT Radiology Routine SOB (shortness of breath) 1 Occurrences starting 12/16/2022 until 01/15/2024 [facility] Work Phone: Comment on above: 1 Occurrences starting 12/16/2022 until 01/15/2024 Radiologic exam ches t 2 views XR CHEST 2V FRONTAL/LAT Radiology Routine SOB (shortness of breath) 12/16/2022 4:16 PM EST [facility] Work Phone: End: 01-15-2024 SPIROMETRY - BASELINE AND POST DILATOR SPIROMETRY - BASELINE AND POST DILATOR PFT Routine SOB (shortness of breath) 1 Occurrences starting 12/16/2022 until 01/15/2024 [facility] Work Phone: Comment on above: 1 Occurrences starting 12/16/2022 until 01/15/2024 SPIROMETRY - BASELIN E AND POST DILATOR SPIROMETRY - BASELINE AND POST DILATOR PFT Routine SOB (shortness of breath) 12/28/2022 8:52 AM EST [facility] Work Phone: Stress echocardiography [place] Thyroid stimulating hormone measurement [facility] End: 02-21-2026 XR Foot - left AP and Lateral and oblique XR FOOT GENERAL 3V AP/LAT/OBL LEFT Radiology Routine Foot pain, left 1 Occurrences starting 01/22/2025 until 02/21/2026 [facility] Work Phone: Comment on above: 1 Occurrences starting 01/22/2025 until 02/21/2026 XR Foot - left AP an d Lateral and oblique XR FOOT GENERAL 3V AP/LAT/OBL LEFT Radiology Routine Foot pain, left 01/22/2025 3:04 PM EDT [facility] Immunizations Immunization Date Immunization Notes Care Provider [facility] 08-14-2023 tetanus toxoid, redu alden diphtheria toxoid, and acellular pertussis vaccine, adsorbed Kenneth Beckett MD Work Phone: [facility] 02-15-2023 tuberculin skin test ; purified protein derivative solution, intradermal Xr Rebekah Work Phone: [facility] 07-13-2019 tetanus toxoid, redu alden diphtheria toxoid, and acellular pertussis vaccine, adsorbed Aly Antonio APRN.DOCUMENT MANAGEMENT ANALYST Work Phone: [facility] Work Phone: 03-13-2019 tuberculin skin test ; purified protein derivative solution, intradermal Xr Rebekah Work Phone: [facility] 07-21-2018 influenza virus vaccine, unspecified formulation Kenneth Beckett MD Work Phone: [facility] 11-08-2015 tetanus toxoid, redu alden diphtheria toxoid, and acellular pertussis vaccine, adsorbed Becki Riggins APRN.DOCUMENT MANAGEMENT ANALYST Work Phone: [facility] 02-17-2003 tetanus and diphther ia toxoids, adsorbed, preservative free, for adult use (2 Lf of tetanus toxoid and 2 Lf of diphtheria toxoid) Aly Antonio APRN.DOCUMENT MANAGEMENT ANALYST Work Phone: [facility] Work Phone: Payers Date Payer Category Payer Self-pay [id number] 2024 Unknown [facility] [employer] OR GENERIC [employer] [employer] S[employer] 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 2024 Unknown [id number] 2019 Commercial Managed C are - HMO [id number] 2019 Managed Care (Private) [facility] [id number] 2007 Private Health Insurance [facility] CHOICE PLUS [id number] 2007- [phone] [address] [place] [address] HMO [id number] 2007 Private Health Insurance [id number] 2007 Private Health Insurance [id number] 1962 Unknown [id number] 1962 Unknown [id number] Unknown [id number] Unknown [id number] Unknown [id number] Unknown [id number] Unknown [id number] Unknown [id number] Unknown [id number] Unknown [id number] Social History Date Type Detail Facility Start: 07-23-2022 End: 05-04-2025 Tobacco smoking status NHIS Never smoked tobacco [facility] Start: 05-25-2022 End: 07-17-2025 Alcohol intake Current drinker of alcohol (finding) [facility] Start: 07-27-2017 History SDOH Alcohol Comment occasional [facility] Start: 1960 Sex Assigned At Not on file [facility] Start: 03-03-2021 End: 12-25-2024 Exposure to SARS-CoV-2 (event) Not sure [facility] Work Phone: Start: 07-23-2022 End: 09-04-2024 Tobacco use and exposure Smokeless tobacco non-user [facility] Start: 04-13-2017 Alcohol intake Current non-dr meal temperer of alcohol (finding) [facility] Start: 07-07-2023 End: 04-02-2024 History of Social function [facility] Start: 07-07-2023 End: 04-02-2024 Tobacco use panel [facility] Start: 10-09-2012 Adult Depression Screening Assessment 2 [facility] Start: 11-10-2021 End: 12-10-2021 Exposure to SARS-CoV-2 (event) Yes [facility] Start: 08-22-2024 Sex Male (finding) Arlen Barber kuldeep Start: 09-05-2024 Alcoholic beverage intake Lifetime non-drinker (finding) [facility] Start: 10-12-2024 Alcohol Comment rarely [facility] Tobacco smoking status WAIS Tobacco smoking consumption unknown [facility] Work Phone: Start: 12-06-2019 Alcohol Alcohol [place] [facility] Start: 12-06-2019 [facility] Start: 12-06-2019 Tobacco Use Tobacco Use [facility] Start: 1960 Sex Assigned At Male W [facility] NEGATED: Highlighted rowStart: NINF History of tobacco use Passive smoker [facility] Medical Equipment Procedure Code Equipment Code Equipment Original Text Equipment Identifier Dates Total cholecystectomy with exploration of common bile duct DAVIDE GRAVES LG FDA Start: 06-20-2019 Total cholecystectomy with exploration [...] bile duct CLIP,DAVIDE MARTINEZ FDA Start: 06-20-2019 Functional Status Date Assessment Result Facility 04-10-2015 Are you deaf, or do you have serious difficulty hearing No 04/10/2015 3:53 PM EDT Morena Grant MA No [facility] 04-10-2015 Are you blind, or do you have serious difficulty seeing, even when wearing glasses No 04/10/2015 3:53 PM EDT Morena Grant MA No [facility] 04-10-2015 Do you have serious difficulty walking or climbing stairs No 04/10/2015 3:53 PM EDT Morena Grant MA No [facility] 04-10-2015 Do you have difficul ty dressing or bathing No 04/10/2015 3:53 PM EDT Morena Grant MA [facility] 04-10-2015 Because of a physica l, mental, or emotional condition, do you have difficulty doing errands alone such as visiting a physician's office or shopping No 04/10/2015 3:53 PM EDT Morena Grant MA No [facility] Mental Status Date Assessment Result Facility 05-04-2025 Cognitive function Voice/Name [facility] Work Phone: 04-30-2025 Cognitive function Level Of Cons ciousness Awake;Alert;Appropriate;Fol lows Commands [facility] Work Phone: 04-10-2015 Because of a physica l, mental, or emotional condition, do you have serious difficulty concentrating, remembering, or making decisions No 04/10/2015 3:53 PM EDT Morena Grant MA No [facility] Clinical Notes 06-01-2017 to 07-18-2025 Telephone Encounter - HaYennifer claudio APRN.CNP - 07/18/2025 12:37 PM EDTTelephone Encounter - Yennifer Worrell APRN.CNP - 07/18/2025 12:37 PM EDYennifer Mccoy APRN.CNP - 07/17/2025 5:24 PM EDT Note Date & Type Note Facility 07-18-2025 Telephone encounter Note Agree. Yes covid testing was negative. Please let us know of any new/worsening or persistent symptoms. [facility] Work Phone: 07-18-2025 Telephone encounter Note ----- Message from Radha Tomlinson RN sent at 07/18/2025 11:58 AM EDT ----- [facility] 07-18-2025 Miscellaneous Notes Agree. Yes covid testing was negative. Please let us know of any new/worsening or persistent symptoms. ----- Message from Radha Tomlinson RN sent at 07/18/2025 11:58 AM EDT ----- Patient calls and is asking about Covid Results. Advised patient that he was negative for Covid. Radha Tomlinson RN documented in this encounter [facility] 07-18-2025 Telephone encounter Note Patient calls and is asking about Covid Results. Advised patient that he was negative for Covid. Radha Tomlinson RN [facility] 07-17-2025 Note HNO ID: [id number] Author: YENNIFER WORRELL APRN.DOCUMENT MANAGEMENT ANALYST Service: ? Author Type: Nurse Practitioner Type: Progress Notes Filed: 07/17/2025 17:29 Note Text: This is a 64 year old male who presents today with: The patient is a 64-year-old male presenting for evaluation of acute back and neck pain aggravated by movement, with associated body aches and fatigue. HISTORY OF PRESENT ILLNESS: Back Pain: - Onset: Wednesday. - Described as severe, especially when lying down and turning. - Pain radiates from the neck to the lungs and back. - Aggravated by movement and certain positions. - Minimal relief with Tylenol. - Roberto denies known trauma or injury. No urinary symptoms. No chest pain/sob/palpitations. Fatigue: - Roberto reports significant fatigue, stating I just don't have no energy. - Unable to engage in usual activities due to lack of energy. Flu-Like Symptoms: - Onset: Wednesday. - Roberto reports feeling sick, similar to having the flu. - Associated symptoms: head congestion, neck pain, and mild diarrhea. - Roberto denies fever, chest pain, dyspnea, or productive cough. - Recent travel to [place] for vacation; returned on . - Exposed to large crowds during travel. - Family history of recent illness: and daughter were sick around the same time; another daughter had COVID two weeks ago (but is not local to patient). PAST MEDICAL HISTORY: PAST MEDICAL HISTORY Diagnosis [...] Brother Osteoporosis Paternal Grandfather Alzheimer's Disease Sister SOCIAL HISTORY[1] REVIEW OF SYSTEMS Constitutional: (+) fatigue, (+) myalgias, (-) fever Ears/Nose/Mouth/Throat: (+) nasal congestion Neck: (-) neck masses Cardiovascular: (-) chest pain, (-) leg swelling . No redness or increased warmth of legs. Respiratory: (+) cough, (-) shortness of breath Gastrointestinal: (+) diarrhea Genitourinary: (-) hematuria, (-) urinary frequency, (-) urinary urgency Musculoskeletal: (+) back pain, (+) neck pain, (-) leg pain. Lower thoracic pain reproducible with palpation. EXAM: BP 114/80 Pulse (!) 52 Temp 36.6 ?C (97.8 ?F) (Left Tympanic) Resp 16 SpO2 97% PHYSICAL EXAM: General Appearance: Well appearing, alert, [...] without murmur, gallop, or rubs. No ectopy. Back: pain reproducible with palpation. Abdomen: Abdomen soft, non-tender. Bowel sounds normal. No masses, organomegaly. No CVA tenderness. Extremities: No deformities. No redness, swelling, increased warmth of LE. Neurologic: Gait normal. ASSESSMENT/PLAN 1. URI, acute (J06.9) 2. Fatigue, unspecified type (R53.83) 3. Acute cough (R05.1) - Recent travel, exposure to sick contacts, and current symptoms suggest viral etiology. Recent travel, but minimal suspicion of DVT/PE d/t oxygenation, not tachycardic, no chest pain, no Shortness of Breath, no leg redness/swelling/increased warmth, and pain to the back is reproducible with palpation. - Ordered COVID and influenza swab; results expected overnight. - Advised supportive care: increase fluid intake, continue Tylenol as needed for aches and pains, and use [id number] cough medicine or Mucinex if needed. - Provided work excuse note; recommended waiting for COVID test results before returning to work. - Instructed to seek emergency care if chest pain or shortness of breath develops. Discussed treatment plan and patient voices understanding. Patient's questions answered appropriately. Medications and potential side effects were discussed and patient voices understanding. Return to the (more content not included)... [facility] 07-17-2025 History of Presen t illness Narrative This is a 64 year old male who presents today with: The patient is a 64-year-old male presenting for evaluation of acute back and neck pain aggravated by movement, with associated body aches and fatigue. HISTORY OF PRESENT ILLNESS: Back Pain: - Onset: Wednesday. - Described as severe, especially when lying down and turning. - Pain radiates from the neck to the lungs and back. - Aggravated by movement and certain positions. - Minimal relief with Tylenol. - Roberto denies known trauma or injury. No urinary symptoms. No chest pain/sob/palpitations. Fatigue: - Roberto reports significant fatigue, stating I just don't have no energy. - Unable to engage in usual activities due to lack of energy. Flu-Like Symptoms: - Onset: Wednesday. - Roberto reports feeling sick, similar to having the flu. - Associated symptoms: head congestion, neck pain, and mild diarrhea. - Roberto denies fever, chest pain, dyspnea, or productive cough. - Recent travel to [place] for vacation; returned on . - Exposed to large crowds during travel. - Family history of recent illness: and daughter were sick around the same time; another daughter had COVID two weeks ago (but is not local to patient). PAST MEDICAL HISTORY: PAST MEDICAL HISTORY Diagnosis [...] Brother Osteoporosis Paternal Grandfather Alzheimer's Disease Sister SOCIAL HISTORY[1] REVIEW OF SYSTEMS Constitutional: (+) fatigue, (+) myalgias, (-) fever Ears/Nose/Mouth/Throat: (+) nasal congestion Neck: (-) neck masses Cardiovascular: (-) chest pain, (-) leg swelling . No redness or increased warmth of legs. Respiratory: (+) cough, (-) shortness of breath Gastrointestinal: (+) diarrhea Genitourinary: (-) hematuria, (-) urinary frequency, (-) urinary urgency Musculoskeletal: (+) back pain, (+) neck pain, (-) leg pain. Lower thoracic pain reproducible with palpation. EXAM: BP 114/80 Pulse (!) 52 Temp 36.6 C (97.8 F) (Left Tympanic) Resp 16 SpO2 97% PHYSICAL EXAM: General Appearance: Well appearing, alert, [...] without murmur, gallop, or rubs. No ectopy. Back: pain reproducible with palpation. Abdomen: Abdomen soft, non-tender. Bowel sounds normal. No masses, organomegaly. No CVA tenderness. Extremities: No deformities. No redness, swelling, increased warmth of LE. Neurologic: Gait normal. ASSESSMENT/PLAN 1. URI, acute (J06.9) 2. Fatigue, unspecified type (R53.83) 3. Acute cough (R05.1) - Recent travel, exposure to sick contacts, and current symptoms suggest viral etiology. Recent travel, but minimal suspicion of DVT/PE d/t oxygenation, not tachycardic, no chest pain, no Shortness of Breath, no leg redness/swelling/increased warmth, and pain to the back is reproducible with palpation. - Ordered COVID and influenza swab; results expected overnight. - Advised supportive care: increase fluid intake, continue Tylenol as needed for aches and pains, and use uolz-mwu-prasiqo cough medicine or Mucinex if needed. - Provided work excuse note; recommended waiting for COVID test results before returning to work. - Instructed to seek emergency care if chest pain or shortness of breath develops. Discussed treatment plan and patient voices understanding. Patient's questions answered appropriately. Medications and potential side effects were discussed and patient voices understanding. Return to the office as scheduled or as needed for worsening/no improvement. Yennifer Worrell APRN.DOCUMENT MANAGEMENT ANALYST Recording using Servergy software for draft documentation of the visit was discussed with the patient/authorized account development representative; all questions welcomed and answered. Patient/authorized account development representative agreed to proceed [1] Social History Tobacco Use Smoking status: Never Smokeless tobacco: Never Vaping Use Vaping status: Never Used Substance Use Topics Alcohol use: Yes Comment: occasional Drug use: No documented in this encounter [facility] 07-17-2025 Telephone encounter Note Patient seen today. Paula Marshall RN [facility] 07-17-2025 Miscellaneous Notes Patient seen today. Paula Marshall RN Call placed to patient with no answer. Message left to return call to triage nurse to review symptoms. Paula Marshall RN documented in this encounter [facility] 07-17-2025 Note SARS-COV-2 (AGENT OF COVID-19) RNA: Not detected INFLUENZA A RNA: Not detected INFLUENZA B RNA: Not detected RESPIRATORY SYNCYTIAL VIRUS (RSV) RNA: Not detected [facility] Comment on above: Performed By: #### 9 [id number] ####[facility] LABCLIA [id number] [address] [place] 07-17-2025 Instructions Yennifer Worrell APRN.ALESHIA - 07/17/2025 11:05 AM EDT Push fluids. We'll send swab for covid/flu. Tylenol as needed for aches/pains. OTC cough medication or mucinex. Let us know if no better/worsening. If any new/worsening symptoms -- to the ER. documented in this encounter [facility] 07-17-2025 Telephone encounter Note Call placed to patient with no answer. Message left to return call to triage nurse to review symptoms. Paula Marshall RN [facility] 05-04-2025 Discharge summary [facility] 05-04-2025 Radiology Diagnostic study note [facility] Imaging Services [address] [place] [address] Chest PA and Lateral MR#: [id number] Acct: [id number] Name: JONOROBERTOABDIRIZAK FRAUSTO Rep #: [id number] : 1960 M 64 From: Griselda Sosa MD PCP: Dr. Kenneth Beckett MD Status: REG E R Study:Chest PA and Lateral Date of Exam: 05/04/25 Exam# [id number] Ordering Dr: Morro Field DO PROCEDURE: CHEST PA AND LATERAL 05/04/2025 REASON FOR EXAM: CHEST PAIN TECHNIQUE: CHEST PA AND LATERAL COMPARISON: 04/30/2025 FINDINGS: Normal heart size. Well inflated lungs. No consolidation, effusion, or pneumothorax. RAD/Chest PA and Lateral IMPRESSION: No acute chest findings Reading Location: [place] [address] CC: Dr. Morro Hodges DO; Dr. Kenneth Beckett MD ~ Cat Scan Tech: Signed [facility] 05-02-2025 Evaluation note Diagnosis Onset Date Resolution Paroxysmal atrial fibrillation acute May 02, 2025 10:45am [facility] Work Phone: 1(169) 723-478906-25-2025 Evaluation note* Diagnosis Onset Date Resolution Status Admit Date Paroxysmal atrial fibrillation acute May 02, 2025 10:45am Paroxysmal atrial fibrillation acute May 28, 2025 11:03am [facility] Work Phone: 1(857) 220-589106-23-2025 Discharge summary [facility] Medical Records Department [address] [place] [address] Emergency Department Summary 04/30/25 MR#: [id number] Acct: [id number] Name: ROBERTO DE LA CRUZ Rep #:[id number] : 1960 64 From: Lee Jaeger MD PCP: Dr. Kenneth Beckett MD Status:REG E R Location: ED HPI History of Present Illness Chief Complaint: Palpitations Narrative Narrative: 64-year-old male presents with lightheadedness and palpitations consistent with his previous atrialfibrillation that he has had since yesterday evening [...] later. He followed up withDr. Mansfield with [place] [facility], who took him off all the medications because he had not had atrial fibrillation in quite some time. Additionally, h esaw Dr. Moss recently, and did not have [...] to be in atrial fibrillation with RVR. [facility] Medical History Paroxysmal atrial fibrillation Hypersomnia Chest [...] with RVR to 143 bpm without acute STchanges. No STEMI. I will obtain CBC, CMP, [...] for an appointment. As he is rate controlled,I feel he can be discharged to follow-up. He was given his first dose of the medication here in theemergency department. Return instructions tothe emergency department were [...] % (Auto) 56.1 Lymph % (Auto) 37.0 Citrus % (Auto) 4.4 Eos % (Auto) 1.2 [...] 16:00 IMPRESSION: No focal consolidations. Reading Location: [id number] Management Discussion w/another healthcare provider: Senior Etl Developer (Dr. Mcneil, cardiology) Discharge Plan Triage Chief [...] heart palpitations, syncope,and/or chest pain. Print Language: Moroccan Disposition Disposition: Home, Self Care What to do if you have Problems For any increased pain, shortness of breath, bleeding, nausea or vomiting, chestpain, or any unexpected problems, contact your Primary Care Provider. Call [facility] ([phone]) or report tothe closest Emergency Room. Call 911 if necessary. 04/30/25 1821 Cosigner Signature (if applicable): CC: Dr. Kenneth Beckett MD ~ Signed [facility]06-23-2025 Radiology Diagnostic study note [facility] Imaging Services [address] [place], [place] [address] Chest 1 View (Portable) MR#: [id number] Acct: [id number] Name: ROBERTO DE LA CRUZ Rep #: [id number] : 1960 M 64 From: Bernadette Lee MD PCP: Dr. Kenneth Beckett MD Status: REG E R Study:Chest 1 View (Portable) Date of Exam: 04/30/25 Exam# [id number] Ordering Dr: Lee Jaeger MD PROCEDURE: CHEST 1 VIEW (PORTABLE) 04/30/2025 REASON FOR EXAM: DYSRHYTHMIA TECHNIQUE: Frontal view of the chest. COMPARISON: 12/06/2019 FINDINGS: No focal consolidation. No pleural effusion or pneumothorax. Cardiac silhouette is within normal limits. RAD/Chest 1 View (Portable) IMPRESSION: No focal consolidations. Reading Location: [id number] CC: Dr. Lee Jaeger MD; Dr. Kenneth Beckett MD ~ Cat Scan Tech: Signed [facility]06-23-2025 NoteHNO ID: [id number] Author: YENNIFER WORRELL APRN.DOCUMENT MANAGEMENT ANALYST Service: ? Author Type: Nurse Practitioner Type: [...] 1 month and then cardioverted. Follows w/ [place] [facility]. PAST MEDICAL HISTORY: PAST MEDICAL HISTORY [...] 127. Hypotensive -- 95/47. [facility] refer [facility] for further eval and treatment. [...] as needed for worsening/no improvement. Yennifer Worrell APRN.DOCUMENT MANAGEMENT ANALYST Recording using Servergy software for draft documentation of the visit was discussed with the patient/authorized account development representative; all questions welcomed and answered. Patient/authorized account development representative agreed to proceed[facility]06-[facility] History of Present illness Narrative* Yennifer Worrell APRN.DOCUMENT MANAGEMENT ANALYST - 04/30/2025 2:55 PM EDT This is a 64 year [...] 127. Hypotensive -- 95/47. Will refer to [facility] ER for further eval and treatment. [...] as needed for worsening/no improvement. Yennifer Worrell APRN.DOCUMENT MANAGEMENT ANALYST Recording using Servergy software for draft documentation of the visit was discussed with the patient/authorized account development representative; all questions welcomed and answered. Patient/authorized account development representative agreed to proceed documented [facility] this encounter[facility] Discharge summary Author Lee Jaeger [facility] Note Date/Time April 30, 2025 6:21 pm [facility] Medical Records Department [address] [place] [address] Emergency Department Summary 04/30/25 MR#: [id number] Acct: [id number] Name: ROBERTO DE LA CRUZ Rep #:[id number] [...] later. He followed up withDr. Mansfield with [place] [facility], who took him off all [...] to be [facility]VR[facility] Paroxysmal atrial fibrillation Hypersomnia Chest [...] % (Auto) 56.1 Lymph % (Auto) 37.0 Citrus % (Auto) 4.4 Eos % (Auto) 1.2 [...] 16:00 IMPRESSION: No focal consolidations. Reading Location: [facility] Management Discussion w/another healthcare provider: Senior Etl Developer (Dr. Mcneil, cardiology) Discharge Plan Triage Chief [...] heart palpitations, syncope,and/or chest pain. Print Language: Moroccan Disposition Disposition: Home, Self Care What to do if you have Problems For any increased pain, shortness of breath, bleeding, nausea or vomiting, chestpain, or any unexpected problems, contact your Primary Care Provider. Call [facility] ([phone]) or report to the closest Emergency Room. Call 911 if necessary. 04/30/251820 <Electronically signed by Lee Jaeger MD> Cosigner Signature (if applicable): CC: Dr. Kenneth Beckett MD ~ Signed [facility] Work Phone: 1(173) 646-517606-18-2025 Telephone encounter Note* Telephone Encounter - Yennifer Worrell APRN.CNP - 04/25/2025 4:45 PM EDT Noted. Yennifer Worrell APRN.CNP [facility] Work Phone: 1([phone]) 173-898906-18-2025 Miscellaneous Notes* Telephone Encounter - Yennifer Worrell APRN.CNP - 04/25/2025 4:45 PM EDT Noted. Yennifer Worrell APRN.CNP * Telephone Encounter - Jonathon Cote LPN - 04/25/2025 1:46 PM EDT Pt notified of results/provider instructions. He verbalized understanding. 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 Jonathon Cote [...] results. Yennifer Worrell APRN.ALESHIA documented in this encounterAv[facility] Telephone encounter Note * Telephone Encounter - Jonathon Cote LPN - 04/25/2025 1:46 PM EDT Pt notified of results/provider instructions. He verbalized understanding. 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 Jonathon Cote LPN [facility]06-17-2025 Telephone encounter Note* Telephone Encounter - Yennifer [...] receive his 's results. Yennifer Worrell APRN.ALESHIA [facility]06-16-2025 NoteHNO ID: [id number] Author: YENNIFER WORRELL APRN.DOCUMENT MANAGEMENT ANALYST Service: ? Author Type: Nurse Practitioner Type: [...] schedule another with the same provider in [place]. Headaches: - Occasional headaches attributed to allergies. - No medication use for allergies. - No other headaches reported. Anxiety/depression: - Managed with sertraline; no changes desired. - Anxiety exacerbated by family losses, including the of a brother three years ago and a sister. - Recent stress due to odtuyycj-dw-vbz's stage 3 throat cancer diagnosis. - Family [...] Promotion: - Eat healthy -- go to [employer]My[employer].gov to get started - Have a yearly [...] changes to medication re (more content not included)...[facility]06-16-2025 History of Present illness Narrative* Yennifer Worrell APRN.DOCUMENT MANAGEMENT ANALYST - 04/23/2025 8:37 AM EDT This is a 64 year old male who presents today with: Roberto Fernández Susanhellen is a 64-year-old male with a history of anxiety, presenting for an annual wellnessvisit. HISTORY OF PRESENT ILLNESS: Annual Wellness Exam: Has form for work. - Last colonoscopy in 2020; Roberto plans to schedule another with the same provider in [place]. Headaches: - Occasional headaches attributed to allergies. - No medication use for allergies. - No other headaches reported. Anxiety/depression: - Managed with sertraline; no changes desired. - Anxiety exacerbated by family losses, including the of a brother three years ago and a sister. - Recent stress due to qekcidgb-vh-zea's stage 3 throat cancer diagnosis. - Family [...] Promotion: - Eat healthy -- go to [email or web address] to get started - Have a yearly [...] situational stress due to family bereavements and hnsevbtx-bo-rfh's cancer diagnosis. 3. Hyperlipidemia, mixed (E78.2) - due for updated labs for wellness form. 4. Screening for colon cancer (Z12.11) - Last colonoscopy performed in 2020. - Advised to schedule next colonoscopy with previous provider in [place]. Discussed treatment plan and patient voices understanding. Patient's questions answered appropriately. Medications and potential side effects were discussed and patient voices understanding. Return to the office as scheduled or as needed for worsening/no improvement. Yennifer Worrell APRN.DOCUMENT MANAGEMENT ANALYST Recording using Servergy software for draft documentation of the visit was discussed with the patient/authorized account development representative; all questions welcomed and answered. Patient/authorized account development representative agreed to proceed documented in this encounterAv[facility]06[facility] Instructions* Patient Instructions* Yennifer Worrell APRN.DOCUMENT MANAGEMENT ANALYST - 04/23/2025 8:31 AM EDT - Continue your current dose of sertraline for anxiety; no changes were made today. - Stop by the lab for the ordered blood tests as soon as possible (you re already fasting 10-12 hours; you may have water or black coffee). - Arrange your next colonoscopy (due every 3 years) with the same doctor in [place]--call their office to schedule. - We will complete and hold your paperwork until your lab results return; we ll call you when the forms are ready for pickup. Health Promotion: - Eat healthy -- go to [employer] to get started - Have a yearly [...] drive - Wear sunscreen documented in this encounterAv[facility] Telephone encounter Note * Telephone Encounter - [...] Jennifer Mooney March 16, 2025 11:33 AM [facility]05-09-2025 Miscellaneous Notes* Telephone Encounter - Jennifer Mooney [...] 16, 2025 11:33 AM documented in this encounterAvita [facility]04-14-2025 Instructions* Patient Instructions* Hanh Sharma APRN.CNP - 02/19/2025 10:01 AM EDT 1) Augmentin 2 x day for 10 days 2) Phenergan and phenylephrine 1 tsp 4 times a day 3) Off work for 24 hours documented in this encounterAvita [facility]04-14-2025 NoteHNO ID: [id number] Author: HANH SHARMA APRN.CNP Service: ? Author [...] as needed for worsening/no improvement. Hanh Sharma APRN.[facility]04-14-2025 History of Present illness Narrative* Hanh Sharma APRN.DOCUMENT MANAGEMENT ANALYST - 02/19/2025 9:53 AM EDT This is [...] improvement. Hanh Sharma APRN.ALESHIA documented in this encounterAvita [facility]04-07-2025 NoteHNO ID: [id number] Author: PAULINA MARMOLEJO LPN Service: ? Author Type: LICENSED NURSE Type: Progress Notes Filed: 02/12/2025 11:29 Note Text: Per Roberto Kc was provided with powerstep gel inserts, size 10.5, and instructed/educated in its application, wear, and care. All questions were answered, and patient was able to demonstrate competence with the necessary skills to utilize the above equipment. [facility]University [facility]-07-20[facility] History of Present illness Narrative* Paulina Marmolejo LPN - 02/12/2025 10:58 AM EDT Per Roberto Kc was provided with powerstep gel inserts, size [...] MD PAST MEDICAL HISTORY Diagnosis Date A-fib ([facility]) 04/2020 Current Outpatient Medications Medication Sig Promethazine-DM [...] prn Romel Mas DPM Podiatry [address] [facility] [address] Dept: [phone] Dept * Apurva Humphreys RN - 02/12/2025 10:36 AM EDT Patient presents [...] pain returned shortly after. documented in this encounterAvita [facility]04-07-2025 Instructions* Patient Instructions* Romel Mas - 02/12/2025 10:56 AM EDT Powerstep Original Full length. Can purchase at [facility] Runner and boots,shoes and more here in [place], [employer] in [place] or [place]. Also can find in [place] in [facility]. Powersteps can also be purchased online, [...] everything fits well together documented in this encounterAvita Health [facility]04-07-2025 NoteHNO ID: [id number] Author: ROMEL MAS, ? Service: ? Author [...] A1C (%) Date Value 09/02/2013 5.7 HBA1C, [place] (%) Date Value 05/13/2009 6.2 PCP: Kenneth Beckett MD PAST MEDICAL HISTORY Diagnosis Date A-fib ([facility]) 04/2020 Current Outpatient Medications Medication Sig Promethazine-DM [...] inserts vs surgcial intervention. (more content not included)...[facility]04-07-2025 NoteHNO ID: [id number] Author: APURVA HUMPHREYS RN Service: ? Author Type: Registered Nurse [...] using it, but pain returned shortly after. [facility]03-21-2025 Telephone encounter Note* Telephone Encounter - Leora Tejada MA - 01/26/2025 2:05 PM EDT Patient was made aware of the results. Patient verbalizes understanding. Leora Tejada Ma [facility]03-21-2025 Miscellaneous Notes* Telephone Encounter - Leora Tejada [...] his foot was normal. documented in this encounterAvita [facility]03-21-2025 Telephone encounter Note * Telephone Encounter - Leora Tejada MA - 01/26/2025 1:21 PM EDT ----- Message from Hanh Sharma sent at 01/26/2025 12:57 PM EDT ----- Please let patient know that the x-ray of his foot was normal. [facility]03-21-2025 Progress note* Result Encounter Note - Hanh Sharma APRN.CNP - 01/26/2025 12:57 PM EDT Please let patient know that the x-ray of his foot was normal. [facility]03-17-2025 History of Present illness Narrative* Shauna Cardona [...] PATIENT PRESENTS WITH AN IMPLANTABLE OR ATTACHED NUMERICAL CONTROL MACHINE MACHINIST: No RADIOLOGY DEPARTMENT: General X-ray: Exam(s) Completed: Lower Extremity X- Ray(s): Foot, Left PERIPHERAL IV DATA: Not applicable SIGNED BY: RT Emmie(R) January 22, 2025 2:53 PM documented in this encounterAvita Health [facility]03-17-2025 NoteHNO ID: [id number] Author: SHAUNA CARDONA RT(R) Service: ? Author Type: Interior Design Consultant Type: Progress Notes Filed: 01/22/2025 15:03 Note [...] PATIENT PRESENTS WITH AN IMPLANTABLE OR ATTACHED NUMERICAL CONTROL MACHINE MACHINIST: No RADIOLOGY DEPARTMENT: General X-ray: Exam(s) Completed: Lower Extremity X-Ray(s): Foot, Left PERIPHERAL IV DATA: Not applicable SIGNED BY: RT Emmie(R) January 22, 2025 2:[address] [facility]03-17-2025 Instructions* Patient Instructions* Hanh Sharma APRN.CNP - 01/22/2025 2:26 PM EDT 1) Augmentin 2 x day for 10 days- take with food 2) Saline nasal spray frequently while on antibiotic 3) File callus with fingernail file 4) Get some corn pads to alleviate pressure 5) Get X-ray 6) Consult podiatry documented in this encounterAvita Health [facility]03-17-2025 NoteHNO ID: [id number] Author: HANH SHARMA APRN.[facility] Service: ? Author Type: Nurse Practitioner Type: [...] clear up into calf yesterday. - yesterday 06/17 Started about 2 weeks ago Intermittent Waxes [...] as needed for worsening/no improvement. Hanh Sharma APRN.[facility]IA[facility]03-17-2025 History of Present illness Narrative* Hanh [...] clear up into calf yesterday. - yesterday 8 Started about 2 weeks ago Intermittent Waxes [...] improvement. Hanh Sharma APRN.ALESHIA documented in this encounterAvita [facility]03-10-2025 Evaluation note* Diagnosis Onset Date Resolution Status Admit Date Paroxysmal atrial fibrillation acute January 15, 2025 2:28pm [facility] Work Phone: 1(596) 972-208403-10-2025 Evaluation note* Diagnosis Onset Date Resolution Status Admit Date Paroxysmal atrial fibrillation acute January 15, 2025 2:28pm Paroxysmal atrial fibrillation acute May 02, 2025 10:45am [facility] Work Phone: 1(582) 778-173602-17-2025 Physician Emergency department Note* Chandrika Bridges PA-C [...] health. Procedure Procedures Chandrika Bridges PA-C 12/25/242138 [facility] Work Phone: 1(462) 898-481202-17-2025 Emergency department Note* Chandrika Bridges PA-C - [...] Chandrika Bridges PA-C 12/25/242138 documented in this [facility] Work Phone: 1(632) 429-498002-17-2025 Hospital Discharge instructions* Discharge Instructions* Chandrika Bridges PA-C - 12/25/2024 9:26 PM EST Follow-up with either orthopedist listed on your discharge papers. May use ibuprofen for comfort. May also use a knee tendon-strap to help with symptoms. Ice and rest. * Attachments The following attachments cannot be sent through Care Everywhere. * Bursitis ED (Moroccan) [facility] Work Phone: 1(715) 736-366201-15-2025 Telephone encounter Note* Telephone Encounter - James Brenner LPN - 11/22/2024 10:51 AM EST Pt notified of results and instructions, pt verbalizes understanding. James Brenner LPN [facility]01-15-2025 Miscellaneous Notes* Telephone Encounter - James Brenner [...] end of the week documented in this encounterAvita Health [facility]01-15-2025 Telephone encounter Note * Telephone Encounter - Kenneth Beckett MD - 11/22/2024 8:10 AM EST Let him know his rsv, covid and flu are negative. Appears to be viral at this point. Call if worsens or not better by end of the week [facility]01-14-2025 NoteHNO ID: [id number] Author: KENNETH BECKETT MD Service: ? 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 documented in this [facility]12-13-2024 NotePatient: Saulo De La Cruz Procedure Summary Date: 10/20/24 Room / Location: [address] Operating Room Anesthesia Start: 1143 Anesthesia [...] discharged once all PACU criteria has been met.[facility]12-13-2024 Note* Perioperative Nursing Note - Yoli Sr RN - 10/20/2024 1:10 PM EST Pt and family verbalized understanding of recovery instructions, pt verbalized a readiness to be discharged home. Pt discharged home via wheelchair accompanied by RN/volunteer. Pt has had all their belongings returned to them at discharge [facility] [id number] Note* Perioperative Nursing Note - Yoli Sr RN - 10/20/2024 1:10 PM EST Pt and family verbalized understanding of recovery instructions, pt verbalized a readiness to be discharged home. Pt discharged home via wheelchair accompanied by RN/volunteer. Pt has had all their belongings returned to them at discharge [facility] [id number] Miscellaneous Notes* Perioperative Nursing Note - Yoli Sr RN - 10/20/2024 1:10 PM EST Pt and family verbalized understanding of recovery instructions, pt verbalized a readiness to be discharged home. Pt discharged home via wheelchair accompanied by RN/volunteer. Pt has had all their belongings returned to them at discharge * Perioperative Nursing Note - Yoli Sr RN - 10/20/2024 12:25 PM EST Pt arousable- oral airway removed- will continue to monitor * Perioperative Nursing Note - Yoli Sr RN - 10/20/2024 12:12 PM EST Pt received from OR via cart, spont. Resp. With DIRECTOR OF MEDICAL SERVICES in attendance. Placed on monitor. Monitor alarms on in PACU , pt has oral airway will continue monitor * Op Note - Edinson Alanis MD - 10/20/2024 11:43 AM EST [facility] MAIN OR [address] [facility] [address] Dept: [phone] Loc: [phone] Operative Report Patient Name: Roberto De La [...] patient's ASA was verified by the nurse pick up and the anesthesia staff. Fire risk was [...] 10/20/2024 , 5:26 PM documented in this [facility]12-13-2024 Note* Perioperative Nursing Note - Yoli Sr RN - 10/20/2024 12:25 PM EST Pt arousable- oral airway removed- will continue to monitor [facility]12-13-2024 Note* Perioperative Nursing Note - Yoli Sr RN - 10/20/2024 12:25 PM EST Pt arousable- oral airway removed- will continue to monitor [facility]12-13-2024 NotePatient: Saulo De La Cruz Procedure Summary Date: 10/20/24 Room / Location: [address] Operating Room Anesthesia Start: 1143 Anesthesia [...] limb Surgeons: Edinson Alanis MD Responsible Provider: GORDO Ruelas CRNA Anesthesia Type: general, TIVA ASA Status: 2 [...] Patient reports no pain in PACU ([id number]) [id number] Anesthesiology Smoking Abstinence The patient is [...] Allowed opportunity for questions and acknowledgement of understanding.[facility]12-13-2024 Note* Perioperative Nursing Note - Yoli Sr RN - 10/20/2024 12:12 PM EST Pt received from OR via cart, spont. Resp. With DIRECTOR OF MEDICAL SERVICES in attendance. Placed on monitor. Monitor alarms on in PACU , pt has oral airway will continue monitor [facility] [id number] Note* Perioperative Nursing Note - Yoli Sr RN - 10/20/2024 12:12 PM EST Pt received from OR via cart, spont. Resp. With DIRECTOR OF MEDICAL SERVICES in attendance. Placed on monitor. Monitor alarms on in PACU , pt has oral airway will continue monitor [facility]12-13-2024 NoteAirway Date/Time: 10/20/2024 11:48 AM Urgency: scheduled Airway not difficult General Information and Staff Patient location during procedure: Procedural Resident/DIRECTOR OF MEDICAL SERVICES: Tayler Thomson APRN - DIRECTOR OF MEDICAL SERVICES Performed: DIRECTOR OF MEDICAL SERVICES Indications and Patient Condition Indications for airway management: anesthesia Sedation level: Asleep Preoxygenated: yes Patient position: sniffing Mask difficulty assessment: 0 - not attempted Final Airway Details Final airway type: supraglottic airway Successful airway: Igel Size 4 [facility] at approach: [facility]* Op Note - Edinosn Alanis MD - 10/20/2024 11:43 AM EST [facility] MAIN OR [address] [place] [address] Dept: [phone] Loc: [phone] Operative Report Patient Name: Roberto De La [...] patient's ASA was verified by the nurse pick up and the anesthesia staff. Fire risk was [...] Edinson Alanis MD 10/20/2024 , 5:26 PM [facility] [employer] Work Phone: [phone]) 584-970812-13-2024 Note* Op Note - Edinson Alanis MD - 10/20/2024 11:43 AM EST [facility] MAIN OR [address] [facility] [address] Dept: [phone] Loc: [phone] Operative Report Patient Name: Roberto De La [...] patient's ASA was verified by the nurse pick up and the anesthesia staff. Fire risk was [...] Edinson Alanis MD 10/20/2024 , 5:26 PM Cuffed and Wanted Phone: [phone] Telephone encounter Note* Telephone Encounter - Nikki [...] Nikki Thornton October 20, 2024 11:31 AM [facility]12-13-2024 Miscellaneous Notes* Telephone Encounter - Nikki Mccarthy [...] 20, 2024 11:31 AM documented in this encounterAvita [facility]12-13-2024 Hospital Discharge instructions* Discharge Instructions* Rafa Rodriguez [...] hours please call the office immediately at [phone]. Your stitches will be removed in 1 [...] taking a prescription pain medicine, take an maqo-yvr-gpgbzll medicine such as acetaminophen (Tylenol), ibuprofen (Advil, [...] and hand's range of motion, strength, and gas blender. To get the best results, you need [...] * Moderate Sedation in Adults Discharge Instructions (Moroccan) documented in this [facility]12-13-2024 History and physical note* Rafa Rodriguez PA-C - 10/20/2024 9:43 AM EST [facility] Pre-Surgical History and Physical Name: Roberto De [...] INJECTION INTERMEDIATE JOINT OR BURSA (Left) Location: [address] Operating Room Surgeons: Edinson Alanis MD [...] Alanis MD at 10/20/2024 4:37 PM EST [facility]12-13-2024 [facility] Pre-Surgical History and Physical Name: Roberto [...] INJECTION INTERMEDIATE JOINT OR BURSA (Left) Location: [address] Operating Room Surgeons: Edinson Alanis MD [...] Rafa Rodriguez PA-C, Date: 10/20/2024 at 9:44 [facility]12-13-2024 History and physical note* Rafa Rodriguez PA-C - 10/20/2024 9:43 AM EST [facility] Pre-Surgical History and Physical Name: Roberto De [...] INJECTION INTERMEDIATE JOINT OR BURSA (Left) Location: [address] Operating Room Surgeons: Edinson Alanis MD [...] at 10/20/2024 4:37 PM EST * Joao Bautistabree Villanueva, BEHAVIORAL HEALTH CLINICIAN - DIRECTOR OF MEDICAL SERVICES - 10/20/2024 9:42 AM EST Telemedicine: Patient [...] stated that they are currently in the [facility]. If the patient is a minor, permission [...] INJECTION INTERMEDIATE JOINT OR BURSA (Left) Location: [place] [address] [place] [address] Operating Room Surgeons: Edinson Alanis MD Roberto [...] Assessment complete, noted above - Surgery Site: [facility] - Anesthesia Type: TIVA #) Paroxysmal atrial fibrillation - managed by PCP (previously managed by [place] [facility]) - s/p cardioversion 01/03/2020 - SR [...] IMGHX XR ENDO COLONSCOPY W DILATATION 2016 Medications Prior to Admission: Prior to Admission medications Not on File Family History: Family History Problem Relation Name Age of Onset Alzheimer's disease Mother Cancer Father Alzheimer's disease Sister COPD Brother Electronically signed by: GORDO Yoder CRNA Date: 10/20/2024 at 9:42 AM Physical Exam Pre-Surgical Physical Vitals: Vitals Value Taken Time BP 138/86 10/20/24 0936 Temp 35.6 C (96 F) 10/20/24 09 Pulse 56 10/20/24935 Resp 20 10/20/24 09 SpO2 95 % 10/20/24935 Constitutional: No apparent [...] FROM with no JVD documented in this [facility]12-13-2024 History and physical note* Joao GORDO Diaz CRNA - 10/20/2024 9:42 AM EST Telemedicine: [...] stated that they are currently in the [facility]. If the patient is a minor, permission [...] INJECTION INTERMEDIATE JOINT OR BURSA (Left) Location: [place] [address] [place] [address] Operating Room Surgeons: Edinson Alanis MD Roberto [...] Assessment complete, noted above - Surgery Site: [facility] - Anesthesia Type: TIVA #) Paroxysmal atrial fibrillation - managed by PCP (previously managed by [place] [facility]) - s/p cardioversion 01/03/2020 - SR [...] IMGHX XR ENDO COLONSCOPY W DILATATION 2016 Medications Prior to Admission: Prior to Admission [...] pedal edema Neck: FROM with no JVD [place] Work Phone: [phone] NoteTelemedicine: Patient was seen today via Telehealth [...] stated that they are currently in the [facility]. If the patient is a minor, permission [...] INJECTION INTERMEDIATE JOINT OR BURSA (Left) Location: [address] Operating Room Surgeons: Edinson Alanis MD [...] NORMAL SINUS RHYTHM NORMAL ECG Confirmed by VIRGEN LANDON MD ([id number]) on 12/24/2022 12:52:21 PM ECHO and [...] Assessment complete, noted above - Surgery Site: [facility] - Anesthesia Type: TIVA #) Paroxysmal atrial fibrillation - managed by PCP (previously managed by [place] [facility]) - s/p cardioversion 01/03/2020 - SR noted on 2022 EKG - stable, asymptomatic, no medications #) Lipid disorder - controlled with lifestyle modifications #) Mood disorder - managed by PCP - mood stable, not currently on m (more content not included)...[facility] [id number] Telephone encounter Note* Telephone Encounter - Jennifer Acosta - 10/13/2024 12:37 PM EST Luh states patients employer has not received the [employer] paperwork. She asked that it be faxed to [phone]. Fax complete. [facility] [id number] Miscellaneous Notes* Telephone Encounter - Jennifer Acosta - 10/13/2024 12:37 PM EST Luh states patients employer has not received the [employer] paperwork. She asked that it be faxed to [phone]. Fax complete. * Telephone Encounter - Vale [...] EST Saulo dropped off paperwork to the [place] office today. He is aware of the 7-10 business days for return on paperwork, as well as the $15 fee for paperwork. Patient would like paperwork faxed back to number listed for Stephanie Torres ([phone]) He would like notified when paperwork is completed, he will pay $15 fee over the phone at this time. Paperwork is in ' mailbox. documented in this [facility]12-05-2024 NotePatient: Saulo De La Cruz Procedure Information Date/Time: 10/20/24 1430 Procedures: ENDOSCOPIC LEFT CARPAL TUNNEL RELEASE, LEFT ULNOCARPAL JOINT INJECTION (Left: Wrist) - 30 MINUTES TOTAL ARTHROCENTESIS ASPIRATION AND/OR INJECTION INTERMEDIATE JOINT OR BURSA (Left) Location: [address] Operating Room Surgeons: Edinson Alanis MD Relevant Problems No relevant active problems Past Medical History: Past Medical History: No date: Anxiety No date: Colon polyps No date: Depression No date: History of atrial fibrillation No date: Lipid disorder Past Surgical History: Past Surgical History: 2019: CARDIOVERSION No date: CHOLECYSTECTOMY 2017: IMGHX XR [...] 12/24/2022 12:52:21 PM Equipment Requests: Additional [facility]11-26-2024 Telephone encounter Note* Telephone Encounter - Vale Estrada ATC - 10/03/2024 12:56 PM EST Fax successfully and paperwork scanned into the chart I called and spoke with the patient directly. I told him I completed the paperwork and faxed it to the number provided today. He said thank you. [facility]11-26-2024 Telephone encounter Note* Telephone Encounter - Vale Estrada ATC - 10/03/2024 12:36 PM EST Paperwork completed and fax pending awaiting confirmation [place] [address]-26-2024 Telephone encounter Note* Telephone Encounter - Lucille Carrero - 10/03/2024 10:40 AM EST Blank paperwork is scanned into patient's media, hard copies are in ' mailbox. [place] [address]-26-2024 Telephone encounter Note* Telephone Encounter - Lucille Carrero - 10/03/2024 10:09 AM EST Saulo dropped off paperwork to the [place] office today. He is aware of the 7-10 business days for return on paperwork, as well as the $15 fee for paperwork. Patient would like paperwork faxed back to number listed for Stephanie Harrison Line ([phone]) He would like notified when paperwork is completed, he will pay $15 fee over the phone at this time. Paperwork is in ' mailbox. [facility]10-29-2024 Hospital Discharge instructions* Discharge Instructions* Stephen [...] You may find a provider through the [facility] by calling [phone] or by visiting [email or web address] Thank You for choosing the [facility] Emergency Department! * Attachments The following attachments cannot be sent through Care Everywhere. * Back Pain (Moroccan) [facility] Physician Emergency department Note* Stephen Kincaid DO - 09/05/2024 7:55 PM EDT Images from the original note were not included. Emergency Department Report [facility] EMERGENCY DEPARTMENT Service Date:.09/05/24 PCP: Kenneth Beckett [...] tractor trailer. [place] since then he from [place] by the time he got down there [...] bilaterally and normal brachioradialis reflexes bilaterally. Normal gas blender strength as well bilaterally with no weakness [...] with above information. Stephen Kincaid DO 09/05/242057 [facility]10-29-2024 Emergency department Note* Stephen Kincaid DO - 09/05/2024 7:55 PM EDT Images from the original note were not included. Emergency Department Report [facility] EMERGENCY DEPARTMENT Service Date:.09/05/24 PCP: Kenneth Beckett [...] tractor trailer. [place] since then he from [place] by the time he got down there [...] bilaterally and normal brachioradialis reflexes bilaterally. Normal gas blender strength as well bilaterally with no weakness [...] Stephen Kincaid DO 09/05/242057 documented in this [facility]Ber[facility]10-28-20[facility] History of Present illness Narrative* Edinson Alanis MD - 09/04/2024 10:00 AM EDT Images from the original note were not included. [facility] [place] [address] [facility] [address] [place] [address] Dept: [phone] Dept Chief Complaint Patient presents with New [...] had an extensive discussion with Mr. Saulo De La Cruz regarding the natural history, etiology, and [facility] consequences of his condition. We discussed both operative and non operative treatment options and Saulo De La Cruz elected to proceed with surgical intervention. I have discussed with Mr. Saulo De La Cruz the potential complications, [...] Follow-up: Saulo will followup with my physician client account assistant, Jhon Garcia PA-C post operatively. He knows to call the office with any questions or concerns in the interim. Future Imaging: NONE Edinson Alanis MD Hand and Upper Extremity Surgery [facility] Department of Orthopaedics and Sports Medicine 09/04/2024 (Please note that portions of this note may have been completed with a voice recognition program. Efforts were made to edit the dictations but occasionally words are mis-transcribed.) documented in this [facility]07-22-2024 History of Present illness Narrative* Maribel Salguero RT(R) - 05/29/2024 2:20 PM EDT [...] PATIENT PRESENTS WITH AN IMPLANTABLE OR ATTACHED NUMERICAL CONTROL MACHINE MACHINIST: No RADIOLOGY DEPARTMENT: General X-ray: Exam(s) Completed: Chest X-Ray PERIPHERAL IV DATA: Not applicable SIGNED BY: RT Acacia(R) May 29, 2024 2:20 PM documented in this encounterAv[facility]07-22-2024 History of Present illness Narrative* Vale Braden APRN.DOCUMENT MANAGEMENT ANALYST - 05/29/2024 2:12 PM EDT This note [...] history is provided by the patient. No english as a second language teacher was used. Cough This is a new [...] days if symptoms persist or worsen. Vale Braden APRN.DOCUMENT MANAGEMENT ANALYST documented in this encounterAvita [facility]07-01-2024 Telephone encounter Note * Telephone Encounter - Apurva Ambrocio RN - 05/08/2024 12:37 PM EDT Pt called and is notified of providers results and instructions. Pt voices understanding. Apurva Ambrocio RN [facility]07-01-2024 Miscellaneous Notes* Telephone Encounter - Apurva Ambrocio RN - 05/08/2024 12:37 PM EDT Pt called and is notified of providers results and instructions. Pt voices understanding. Apurva Ambrocio RN * Telephone Encounter - Kenneth Beckett MD - 05/08/2024 12:02 PM EDT Ldl is a little higher. Just watch cholesterol in the diet. documented in this encounterAvita [facility]07-01-2024 Telephone encounter Note * Telephone Encounter - Kenneth Beckett MD - 05/08/2024 12:02 PM EDT Ldl is a little higher. Just watch cholesterol in the diet. [facility]05-03-2024 Telephone encounter Note* Telephone Encounter - Jewels [...] daily. Please review and advise. Jewels Cordon [facility]05-03-2024 Miscellaneous Notes* Telephone Encounter - Jewels Cordon [...] and advise. Jewels Cordon documented in this encounterAvita Health [facility]03-04-2024 Miscellaneous Notes* Telephone Encounter - Hanh Sharma [...] Thank you. Kesha El. 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 Patient states that he is doing [...] Prior Authorization has been completed online at [employer] for Acyclovir, will await response. HURT- [id number] Please keep encounter open until final decision has been received and documented from insurance company. Odessa Ramirez LPN documented in this encounterAvita Health System [facility]02-20-2024 Miscellaneous Notes* Telephone Encounter - Jolene Whiting RN - 12/28/2023 10:43 AM EST Phoned pt and given provider's message below with verbalized understanding. * Telephone Encounter - Kenneth Beckett MD - 12/27/2023 7:23 PM EST Let him know his repeat xray was ok. No pneumonia. documented in this encounterAvita Health System [facility]02-19-2024 History of Present illness Narrative* Tiera Nolasco, [...] PATIENT PRESENTS WITH AN IMPLANTABLE OR ATTACHED NUMERICAL CONTROL MACHINE MACHINIST: No RADIOLOGY DEPARTMENT: General X-ray: Exam(s) Completed: Chest X-Ray PERIPHERAL IV DATA: Not applicable SIGNED BY: RT Mary Beth(R) December 27, 2023 5:58 PM documented in this encounterAvita Health System [facility]02-19-2024 History of Present illness Narrative* Kenneth Beckett MD - 12/27/2023 5:09 PM EST HPI: Patient presents today for office visit for follow up. ENT: Patient complains of sinus pressure. Duration: 12/19/23 (1 week) Fever: has not checked but does have fever blisters. When wakes up bed is wet like fever broke Headache: Yes. Sore throat: No. Ear pain: Yes. Right ear. reported was red told otitis media. Nasal [...] and sore throat. Patient was seen in [facility] 2 days ago with similar [...] CREAM Kenneth Beckett MD documented in this encounterAvita Health [facility]02-14-2024 History of Present illness Narrative* Vale Braden, GORDO.DOCUMENT MANAGEMENT ANALYST - 12/22/2023 7:43 PM EST This note was created using [employer] Accounting[employer]. Subjective Roberto De La Cruz is a 63 year old male. 63 male with no PMH presents today with acute onset URI symptoms for four days. Pertinent positivesinclude productive cough with holland sputum, nasal congestion, body aches, chills, fatigue, decreasedappetite, and headache. Pertinent negatives include rhinorrhea, GI upset, ear pain, eye pain, sinuspain, and sore throat. Patient was seen in [facility] 2 days ago with similar [...] pneumonia. PAST MEDICAL HISTORY Diagnosis Date A-fib (HCC) 04/2020 PAST SURGICAL HISTORY Procedure Laterality Date COLONOSCOPY FLX DX W/COLLJ SPEC WHEN PFRMD 11/27/2016 Colonoscopy LAPAROSCOPIC CHOLECYSTECTOMY 06/20/2019 Dr. Gagan Rcihardson PAST SURGICAL HISTORY OF finger surgery x [...] and frontal sinus tenderness present. Mouth/Throat: Lips: [place]. No lesions. Mouth: Mucous membranes are moist. [...] for 4 days. - Was seen in [facility] 2 days ago- COVID/flu/rsv negative [...] taking tessalon pearls Melisa Walpole TEACHING PROVIDER (Physician/PA/BEHAVIORAL HEALTH CLINICIAN) NOTE OF PERSONAL INVOLVEMENT IN CARE: I have personally seen and examined the patient and performed the medical decision-making components. I have reviewed the Advanced Practice Registered Nurse (BEHAVIORAL HEALTH CLINICIAN) Student's documentation and verified the findings in the note as written. Any additions or changes are noted in bold/italics. Signature: Vale Braden Date: 12/23/2023 Time: 9:41 AM documented in this encounterAvita Health [facility]02-13-2024 Miscellaneous Notes* Telephone Encounter - Morena Grant - 12/21/2023 7:16 AM EST Patient given results and verbalized understanding of instructions given. Morena Grant * Telephone Encounter - Lauren Mckenzie APRN.CNP - 12/21/2023 7:13 AM EST Negative for flu, covid, rsv please notify thank you documented in this encounterAvita Health [facility]02-12-2024 History of Present illness Narrative* Maribel Salguero RT(R) - 12/20/2023 9:30 AM EST [...] PATIENT PRESENTS WITH AN IMPLANTABLE OR ATTACHED NUMERICAL CONTROL MACHINE MACHINIST: No RADIOLOGY DEPARTMENT: General X-ray: Exam(s) Completed: Chest X-Ray PERIPHERAL IV DATA: Not applicable SIGNED BY: RT Acacia(R) December 20, 2023 9:33 AM documented in this encounterAvita Health [facility]02-12-2024 History of Present illness Narrative* Lauren Mckenzie APRN.DOCUMENT MANAGEMENT ANALYST - 12/20/2023 9:27 AM EST CC: Patient [...] Unremarkable. IMPRESSION IMPRESSION: No acute radiographic abnormality. Cat Scan Tech: KEVIN Transcribe Date/Time: Dec 20 2023 9:39A OTC meds for symptoms.. Potential red flag symptoms discussed with the patient. Reviewed appropriate action plan to take if red flag symptoms occur. Patient agreeable to treatment plan. Lauren Mckenzie APRN.ALESHIA documented in this encounterAvita Health [facility]01-25-2024 Miscellaneous Notes* Telephone Encounter - Debra Devine LPN - 12/02/2023 3:28 PM EST Patient notified of results, verbalizes understanding of instructions. Debra Devine LPN * Telephone Encounter - Kenneth Beckett MD - 12/02/2023 2:17 PM EST Let him know xray was ok. documented in this encounterAvita Health [facility]01-24-2024 History of Present illness Narrative* Maribel Salguero RT(R) - 12/01/2023 2:10 PM EST [...] 01, 2023 2:13 PM documented in this encounterAvita Health [facility]11-21-2023 Miscellaneous Notes* Telephone Encounter - Ruben ThorntonSunshine Jolene - 09/28/2023 12:28 PM EST Pharmacy verified in [facility] Patient has been identified by name and [...] advise. Sunshine Miranda Pss documented in this encounterAvita Health [facility]09-19-2023 Miscellaneous Notes* Telephone Encounter - Apurva Ambrocio RN - 07/27/2023 12:37 PM EDT Pt called and is notified of providers results. Pt voices understanding. Apurva Ambrocio RN * Telephone Encounter - Kenneth Beckett MD - 07/26/2023 6:25 PM EDT Labs are stable. Psa is improved. documented in this encounterAvita Health [facility]09-11-2023 Miscellaneous Notes* Telephone Encounter - Debra Devine LPN - 07/19/2023 1:20 PM EDT Patient notified of results, verbalizes understanding of instructions. Debra Devine LPN * Telephone Encounter - Vale Braden APRN.ALESHIA - 07/19/2023 12:44 PM EDT Please inform patient of negative xrays of the leg and also the finger. Continue treatment plan discussed at time of exam. Follow up with PCP for continued sx. documented in this encounterAvita Health [facility]09-11-2023 Miscellaneous Notes* Telephone Encounter - Donya Guzman Ma - 07/19/2023 12:36 PM EDT Pt notified and voiced understanding. Donya Guzman Ma * Telephone Encounter - Lauren Mckenzie APRN.CNP - 07/19/2023 11:45 AM EDT Patient's ultrasound is negative. If patient's symptoms are persistent please have him follow-up with primary care. documented in this encounterAvita Health [facility]09-11-2023 History of Present illness Narrative* Maribel aSlguero RT(R) - 07/19/2023 11:50 AM EDT Radiology [...] 19, 2023 11:49 AM documented in this encounterAvita Health [facility]09-11-2023 History of Present illness Narrative* Steph Taveras [...] 19, 2023 11:29 AM documented in this encounterAvita Health [facility]09-11-2023 History of Present illness Narrative* Vale Braden APRN.CNP - 07/19/2023 10:07 AM EDT [employer] Vale reaches out. Requests modification of order. Change placed. documented in this encounterAvita Health System [facility]09-09-2023 Miscellaneous Notes* Telephone Encounter - Jolene Nieto PA-C - 07/17/2023 11:48 AM EDT Telephone on 07/16/23 BASIC METABOLIC PNL LIPID PANEL BASIC CBC PSA/PROSTSPECAG SCRN Eh Cloud PA-C * Telephone Encounter - Tawana Dillard LPN - 07/16/2023 1:47 PM EDT See phone note in patient chart. Asking for annual labs for physical. Scheduled 08/09/23. documented in this encounterAv[facility] Instructions* Patient Instructions* Aly Antonio APRN.CNP - [...] STREP A MOLECULAR (POC) documented in this encounterAv[facility]08-30-2023 History of Present illness Narrative* Aly Antonio [...] - STREP A MOLECULAR (POC) Aly Antonio APRN.DOCUMENT MANAGEMENT ANALYST documented in this encounterAvita [facility]05-30-2023 Miscellaneous Notes* Telephone Encounter - Siria Daniella ALEJANDRO - 04/06/2023 12:42 PM EDT Patient requests via [place] ref[place] as follows: Requested Prescriptions Pending Prescriptions Disp Refills sertraline (ZOLOFT) 50 mg tablet 30 tablet 1 Sig: Take 1 tablet by mouth once daily. SUNG: 12/16/22 NOV: None scheduled Last Refill: 01/21/23 #30 1 refill Siria Brewer LPN * Telephone Encounter - Sunshine Miranda Pss - 04/06/2023 11:06 AM EDT Pharmacy verified in [facility] Patient has been identified by name and [...] advise. Sunshine Miranda Pss documented in this encounterAvita [facility]04-12-2023 History of Present illness Narrative* Edilma Glynn LPN - 02/17/2023 3:39 PM EDT Patient presents for PPD read only. Denies any problems at this time. Edilma Glynn LPN documented in this encounterAvita [facility]04-10-2023 History of Present illness Narrative* Edilma Glynn LPN - 02/15/2023 10:18 AM EDT Patient presents for PPD administration. Denies any problems at this time. Tolerated injection well. Edilma Glynn LPN documented in this encounterAvita [facility]03-29-2023 Miscellaneous Notes* Telephone Encounter - Edilma Glynn LPN - 02/03/2023 8:41 AM EDT Patient scheduled for nurse visit 02/15/23 to receive PPD administration. Please place order at thistime. Edilma Glynn LPN documented in this encounterAvita [facility]03-16-2023 Miscellaneous Notes* Telephone Encounter - Jonathon Cote [...] notify patient. Jaclyn Lopez documented in this encounterAvita [facility]02-20-2023 History of Present illness Narrative* OTILIO Chavez - 12/28/2022 9:53 AM EST PULM FUNCTION SMARTBLOCK: Provider: Kenneth Beckett MD Assisting Tech: OTILIO Chavez Spirometry w/BD: 1 DLCO: 1 LV - Box: 1 documented in this encounterAvita [facility]02-08-2023 History of Present illness Narrative* Kenneth Beckett [...] been for several months. 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 [...] RTO in three months documented in this encounterAvita [facility]01-11-2023 History of Present illness Narrative* Shama Mary, GORDO.DOCUMENT MANAGEMENT ANALYST - 11/18/2022 10:23 AM EST 11/18/2022 Patient [...] 8 PAST MEDICAL HISTORY Diagnosis Date A-fib ([facility]) 04/2020 ALLERGIES Iodinated Contrast Media MEDICATIONS No [...] - Instructed patient to contact office or [id number] after-hours promptly should condition worsen or any new symptoms appear. - Counseling [facility] and after hours crisis line - [...] which included preparing to see the patient, [id number] patient care, completing clinical documentation, obtaining and/or reviewing separately obtained history, performing a medically appropriate examination, counseling and educating the pat ient/family/caregiver, and ordering medications, tests, or procedures. documented in this encounterAvita [facility]12-24-2022 History of Present illness Narrative* Mariia Carroll APRN.CNP - 10/31/2022 3:28 PM EST This note was created using Wave Accounting[employer]. Subjective Roberto De La Cruz is a 61 year old male. The history is provided by the patient and the spouse. No english as a second language teacher was used. Eye Problem This is a [...] worse Mariia Carroll APRN.CNP documented in this encounterAvita [facility]11-01-2022 Instructions* Patient Instructions* Yennifer Worrell APRN.CNP - 09/08/2022 3:05 PM EDT Get the labwork. Start the doxycycline twice daily. Start the prednisone. If no better/worsening, let us know. documented in this encounterAvita [facility]11-01-2022 History of Present illness Narrative* Yennifer Worrell [...] as needed for worsening/no improvement. Yennifer Worrell APRN.ALESHIA documented in this encounterAvita [facility]11-01-2022 Miscellaneous Notes* Telephone Encounter - Paula Marshall [...] body aches. Protocols used: Weakness (Generalized) and [id number] documented in this encounterAvita [facility]10-04-2022 Instructions* Patient Instructions* Becki Riggins APRN.CNP - 08/11/2022 7:01 PM EDT ASSESSMENT/PLAN: 1. Foot pain, left - ICD9: 729.5, ICD10: M79.672 - XR FOOT GENERAL 3V . My reading: negative. Radiologist RESULT: No fracture, destructive changes or periosteal reaction. Joint spaces and articular surfaces are preserved. Incidental note of bipartite pisiform bones underlying the first metatarsal head. IMPRESSION: Negative left foot. Cat Scan Tech: KEVIN Transcribe Date/Time: Aug 11 2022 7:40P Dictated by : CARLINE ROBERSON MD - suspect gout flare - may take prednisone for pain and inflammation. - discussed utility of uric acid blood test - gout information printed for patient. Becki Riggins APRN.DOCUMENT MANAGEMENT ANALYST GOUT: You have an acute joint inflammation [...] Yeast (cardozo's and brewers) documented in this encounterAvita [facility]10-04-2022 History of Present illness Narrative* Maribel Salguero RT(R) - 08/11/2022 7:00 PM EDT [...] 11, 2022 7:12 PM documented in this encounterAvita Health [facility]10-04-2022 History of Present illness Narrative* Becki Riggins [...] started 2 days ago. 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 IMPRESSION: Negative left foot. Cat Scan Tech: KEVIN Transcribe Date/Time: Aug 11 2022 7:40P Dictated by : CARLINE ROBERSON MD - suspect gout flare - may take prednisone for pain and inflammation. - discussed utility of uric acid blood test - gout information printed for patient. Becki Riggins APRN.ALESHIA documented in this encounterAvita [facility]08-26-2022 Miscellaneous Notes* Telephone Encounter - Tawana Dillard LPN - 07/03/2022 10:51 AM EDT Notified . * Telephone Encounter - Kenneth Beckett MD - 07/03/2022 9:50 AM EDT done * Telephone Encounter - Tawana Dillard LPN - 07/02/2022 5:23 PM EDT Scheduled physical 07/23 asking for lab orders. Please review chart. documented in this encounterAvita Health [facility]07-18-2022 History of Present illness Narrative* Aly Antonio, BEHAVIORAL HEALTH CLINICIAN.DOCUMENT MANAGEMENT ANALYST - 05/25/2022 5:16 PM EDT Images from [...] plan Aly Antonio APRN.CNP documented in this encounterAvita [facility]03-03-2022 History of Present illness Narrative* Maribel Salguero RT(R) - 01/08/2022 11:20 AM EST [...] 08, 2022 11:21 AM documented in this encounterAvita [facility]02-02-2022 History of Present illness Narrative* Tiera Nolasco [...] 10, 2021 9:45 AM documented in this encounterAvita [facility]01-24-2022 History of Present illness Narrative* Tiera Nolasco [...] 01, 2021 11:04 AM documented in this encounterAvita [facility]05-26-2021 History of Present illness Narrative* Ismael Wang [...] 02, 2021 4:51 PM documented in this encounterAvita Health [facility]07-25-2017 Instructions* Patient Instructions* Tatiana Nikunjrafaela - 06/01/2017 [...] until the day before your colonoscopy. Designated Rubber Gasket Inspector Trimmer on the Day of Your Exam A responsible family member or friend MUST come with you to your colonoscopy and REMAIN in the endoscopy area until you are discharged! You are NOT ALLOWED to drive, take a taxi or bus, or leave the Endoscopy Center ALONE. If you do not have a responsible taxicab driver (family member or friend) with you [...] clear carbonatedbeverages such as puneet sherlyn or lemon-poarch soda; Gatorade or other sports drinks (not [...] calling after 5:00 PM, please call Nurse typewriter ribbon winder at [phone]. COLONOSCOPY PROCEDURE OVERVIEW Please read prior to [...] If the nausea persists, please contact nurse material control clerk at [phone]. You may experience skin irritation around the [...] If sedation has been given, a responsible taxicab driver (a family member or friend) must [...] who performed your exam. documented in this encounterAvita Health [facility] HospitalDis[facility] summary Author Morro Hodges [facility] Note Date/Time May 04, 2025 6:16 am [facility] Medical Records Department [address] [place] [address] Emergency Department Summary 05/04/25 MR#: [id number] Acct: [id number] Name: ROBERTO DE LA CRUZ Rep #:[id number] : 1960 64 From: Morro Spear ggett DO PCP: Dr. Kenneth Beckett MD Status:REG E R Location: ED HPI History of Present Illness Chief Complaint: General Illness Narrative Narrative: Chief complaint and HPI: Chest pain. 64-year-old male with proximal atrial fibrillation on Eliquis with history of cardioversion presents for evaluation ofchest pain. History taken by patient as well as medical record. Patient was recently off all of his medications for atrial fibrillation until recently when he was found in atrial fibrillation with RVR. He was seen in our emergency department on 04/30/2025. At that time was rate controlled with IV labetalol. Cardiology was consulted and plan was for metoprolol 50 mg twice daily as well as Eliquis. Plan to follow-up outpatient in office. Patient followed up with cardiology on 05/02. I reviewed the note. Plan is for pharmacological nuclear stress test and cardioversion once anticoagulated for 30 days. Also had thyroidfunction test ordered. Previous stress echo was in 2019 showed an EF of 65%. And negative for ischemia. Patient states this evening he was outside cleaning the windows when he became lightheaded, diaphoretic, and fatigued. He went inside and his checked hisblood pressure and states that his SBP was in the 80s and he was tachycardic in the 110s. He states he then took a long nap. Patient states he is just felt generally fatigued all day. States his evening he developed chest pain which iswhy presents. Chest pain resulted in the car. He denies any fever, chills, shortness of breath, abdominal pain, nausea, vomiting. Review of systems: See HPI Medications: As listed on the chart Allergies: As listed on the chart PFSH: Per chart Vital signs: As listed on the chart. Reviewed. Physical exam: Gen: A&O x3, NAD Head: Normocephalic, atraumatic Eyes: No sclera icterus, conjunctiva clear ENT: Moist mucous membranes Neck: Trachea midline, No JVD CV: Irregular irregular rhythm, normal rate, no murmurs, no peripheral edema Resp: Lungs CTA BL, no w/r/c GI: Abd soft, non-distended, non-tender, no r/r/g Musc: Full ROM, no deformity Skin: Warm, dry Neuro: Alert, oriented, grossly intact, sensation intact Psych: Cooperative, appropriate mood and affect PFSH PFS Medical History Paroxysmal atrial fibrillation Hypersomnia Chest pain New onset atrial fibrillation Acute cholecystitis Acute renal insufficiency MRSA infection right ring finger infection Tenosynovitis of finger Home Medications ?Medication ?Instructions ?Recorded ?Last Taken ?Type apixaban 5 mg tablet (Eliquis) 5 mg PO BID #60 tabs Unknown Rx metoprolol tartrate 25 mg tablet 25 mg PO BID 30 days #60 tabs 05/04/25 Unknown Rx sertraline 50 mg tablet 50 mg PO DAILY 05/04/25 Unkn own History Allergy/AdvReac Type Severity Reaction Status Date / Time Iodinated Contrast Media AdvReac Other Verified 05/04/25 03:21 (CONTRASTS) Family History Mother Alzheimer's disease Father Brain tumor S/P lobectomy of lung S/p nephrectomy Cancer Brother COPD (chronic obstructive pulmonary disease) Sister Alzheimer's disease Surgical History History of cardioversion (01/03/20) History of tonsillectomy and adenoidectomy History of colonoscopy (11/27/16) history of finger surgery History of cholecystectomy (06/20/19) Social History household members: spouse Smoking Status: Never smoker substance use type: does not use EXAM Physical Exam Const Vital Signs: 05/04/25 03:22 05/04/25 03:22 05/04/25 03:28 Temperature 97.7 F L Temperature Source Oral Pulse Rate 64 Respiratory Rate 16 Respiratory Effort Normal Non-Labored Normal Non-Labored Respiratory Pattern Irregular Blood Pressure 114/85 H Blood Pressure Mean 94 Pulse Ox 98 Oxygen Delivery Method Room Air 05/04/25 05:21 Temperature Temperature Source Pulse Rate 73 Respiratory Rate 15 Respiratory Effort Respiratory Pattern Blood Pressure 112/86 H Blood Pressure Mean 94 Pulse Ox 94 Oxygen Delivery Method Room Air MDM MDM MDM Narrative Medical decision making narrative: 64-year-old male with proximal atrial fibrillation on Eliquis with history of cardioversion presents for evaluation of chest pain. Associated symptoms are intermittent hypotension, fatigue. History taken by patient as well as medical record, see HPI. Differential diagnosis includes but is not limited to metoprolol side effect, symptomatic atrial fibrillation, atrial fibrillation with RVR, ACS, electrolyte abnormality, CHF. Aspirin ordered for symptoms. Cardiology workup ordered. Previous labs show a unremarkable TSH on 05/02. EKG and chest x-ray reviewed see below. CBC without leukocytosis or anemia. BMP unremarkable. Magnesium level unremarkable. BNP mildly elevated at 957. Patient not overtly fluid overloaded on chest x-ray or physical exam. Troponin unremarkable x 2. On reevaluation, patient is no longer having chest pain. He has a heart score of 3. Given his episode of hypotension, symptoms and being expelled blushed with cardiology, cardiology was consulted. I spoke to Dr. Garsia. Plan is to decrease metoprolol to 25 twice daily and follow-up in the office. Patient was updated of all results and confirmed understanding of plan. Patient was educated to monitor his blood pressure and symptoms. Return back to the ED if symptoms change or worsen. Patient stable to discharge home. EKG: Interpreted by me/EM physician: EKG shows atrial fibrillation without any acute ischemic changes. Heart rate 69. Diagnostic: Interpreted by me/EM physician: Chest x-ray without pneumonia, effusion, cardiomegaly, pneumothorax. Radiology in agreement. Impression: 1. Chest pain 2. History of atrial fibrillation 3. Reported hypotension Lab Data Labs: Laboratory Results - last 24 hr 05/04/25 05/04/25 03:33 05:40 WBC 6.6 RBC 4.93 Hgb 15.5 Hct 45.2 MCV 91.7 MCH 31.4 MCHC 34.3 RDW Std Deviation 45.6 H RDW Coeff of Mariola 13.5 Plt Count 227 MPV 10.7 Immature Gran % (Auto) 0.500 Neut % (Auto) 44.1 L Lymph % (Auto) 48.3 H Citrus % (Auto) 4.5 Eos % (Auto) 1.7 Baso % (Auto) 0.9 Absolute Neuts (auto) 2.9 Absolute Lymphs (auto) 3.19 Nucleated RBC % 0 Sodium 136 Potassium 4.3 Chloride 101 Carbon Dioxide 23.2 Anion Gap 12 BUN 17 Creatinine 1.06 Estim Creat Clear Calc 98.24 Est GFR (MDRD) Non-Af 79 BUN/Creatinine Ratio 15.7 Glucose 123 H Calcium 9.4 Magnesium 2.2 Troponin T High Sens 8 Troponin T Hi Sens 2 Hr 8 NT pro BNP II 957 H Radiography Diagnostic Testing: Clinical Impression(s) from Imaging Studies Chest X-Ray 05/04/25 04:10 IMPRESSION: No acute chest findings Reading Location: [place] [address] Discharge Plan Triage Chief Complaint: General Illness Other Complaint: Palpitations ED Provider: Morro Hodges Dx/Rx/DC Orders Clinical Impression: Chest pain Instructions: ED Chest Pain, Uncertain Cause Prescriptions: New metoprolol tartrate 25 mg tablet 25 mg PO BID 30 Days Qty: 60 0RF Discontinued metoprolol tartrate 50 mg tablet 50 mg PO BID Qty: 60 0RF No Action sertraline 50 mg tablet 50 mg PO DAILY Eliquis 5 mg tablet 5 mg PO BID Qty: 60 0RF Stand Alone Forms: ED Work / School Excuse Primary Care Provider: Kenneth Beckett Referrals: Ole Moss MD [Med Staff - Active Staff] - 3-5 Days Kenneth Beckett MD [Primary Care Provider] - 3-5 Days Activity Restrictions/Additional Instructions: Metoprolol was changed to 25 mg twice daily. Continue to monitor your blood pressure and your symptoms. Return back to the ED if symptoms change or worsen. Follow-up with cardiology. Call tomorrow to make an appointment. Print Language: Moroccan Disposition Disposition: Home, Self Care What to do if you have Problems For any increased pain, shortness of breath, bleeding, nausea or vomiting, chestpain, or any unexpected problems, contact your Primary Care Provider. Call [facility] ([phone]) or report to the closest Emergency Room. Call 911 if necessary. 05/04/25 0616 <Electronically signed by Morro Hodges DO> Cosigner Signature (if applicable): CC: Dr. Kenneth Beckett MD ~ Signed [facility] Work Phone: Evaluation note* Diagnosis Skin infection- Primary Unspecified local infection of skin and subcutaneous tissue documented [facility] encounter [facility]* Diagnosis Well adult exam- Primary Routine general medical examination at a health care facility documented [facility] this encounter [facility]* Diagnosis Foot pain, left- Primary Pain in limb documented in this encounter [facility]* Diagnosis Sinobronchitis- Primary Unspecified sinusitis (chronic) Bronchitis Bronchitis, not specified as acute or chronic documented [facility] this encounter [facility]* Diagnosis Subconjunctival hemorrhage of left eye- Primary documented in this [facility]* Diagnosis Anxiety and depression- Primary Dysthymic disorder documented [facility]* Diagnosis SOB (shortness of breath)- Primary Shortness of breath Paroxysmal atrial fibrillation (HCC) Atrial fibrillation Anxiety and depression Dysthymic disorder documented [facility]* Diagnosis Screening for colon cancer- Primary Special screening for malignant neoplasms, colon documented [facility]* Diagnosis SOB (shortness of breath) Shortness of breath [facility] Diagnosis Anxiety and depression Dysthymic disorder [facility]* Diagnosis Screening-pulmonary TB- Primary Screening examination for pulmonary tuberculosis documented [facility]* Diagnosis Screening-pulmonary TB- Primary Screening examination for pulmonary tuberculosis [facility] Diagnosis Screening-pulmonary TB- Primary Screening examination for pulmonary tuberculosis [facility]* Diagnosis Viral syndrome- Primary Unspecified viral infection, in conditions classified elsewhere and of unspecified site Sore throat Acute pharyngitis documented [facility]* Diagnosis Leg pain, left- Primary Pain in limb [facility]* Diagnosis Paroxysmal atrial fibrillation (HCC)- Primary Atrial fibrillation Anxiety and depression Dysthymic disorder Screening for prostate cancer Special screening for malignant neoplasm of prostate Hyperlipidemia, mixed Mixed hyperlipidemia Hypertriglyceridemia Pure hyperglyceridemia documented [facility]* Diagnosis Leg pain, left Pain in limb [facility] Diagnosis Anxiety and depression Dysthymic disorder documented [facility]* Diagnosis URI, acute- Primary Acute upper respiratory infections of unspecified site Acute cough [facility]* Diagnosis Acute otitis media, right- Primary Unspecified otitis media URI, acute Acute upper respiratory infections of unspecified site documented [facility] this [facility]* Diagnosis Bronchitis- Primary Bronchitis, not specified as acute or chronic Paroxysmal atrial fibrillation (HCC) Atrial fibrillation Hyperlipidemia, mixed Mixed hyperlipidemia Hypertriglyceridemia Pure hyperglyceridemia Recurrent cold sores Herpes simplex without mention of complication documented [facility] this [facility]* Diagnosis Anxiety and depression Dysthymic disorder documented [facility]* Diagnosis Hyperlipidemia, mixed- Primary Mixed hyperlipidemia documented [facility] this [facility]* Diagnosis Acute cough- Primary Rhinosinusitis Unspecified sinusitis (chronic) Acute cough [facility]* Diagnosis Well adult exam- Primary [facility]ine [facility] History of colonic polyps Personal history of colonic polyps Acute cough [facility]* Diagnosis Well adult exam- Primary Routine general medical examination at [facility] History of colonic polyps Personal history of colonic polyps Bronchitis Bronchitis, not specified as acute or chronic documented [facility]* Diagnosis Well adult exam- Primary Routine [facility] History of colonic polyps Personal history of colonic polyps Acute cough [facility]* Diagnosis Well adult exam- Primary Routine [facility] History of colonic polyps Personal history of colonic polyps Acute pain of left shoulder [facility]* Diagnosis Well adult exam- Primary Routine [facility] History of colonic polyps Personal history of colonic polyps Left leg swelling Swelling of limb Finger pain, left Pain in limb documented [facility]* Diagnosis Well adult exam- Primary Routine [facility] History of colonic polyps Personal history of colonic polyps SOB (shortness of breath) Shortness of breath [facility]* Diagnosis Well adult exam- Primary Routine general medical examination at [facility] History of colonic polyps Personal history of colonic polyps Foot pain, left Pain in limb [facility]* Diagnosis Well adult exam- Primary Routine general medical examination at [facility] History of colonic polyps Personal history of colonic polyps Cough Pneumonia due to COVID-19 virus [facility]* Diagnosis Well adult exam- Primary [facility] History of colonic polyps Personal history of colonic polyps SOB (shortness of breath) Shortness of breath [facility] Diagnosis Well adult exam- Primary Routine general medical examination at a rust History of colonic polyps Personal history of colonic polyps COVID-19 [facility] Diagnosis Well adult exam- Primary Routine general medical examination at a rust History of colonic polyps Personal history of colonic polyps Foot pain, left Pain in limb [facility]* Diagnosis Carpal tunnel syndrome of left wrist- Primary Bilateral wrist pain DRUJ (distal radioulnar joint) post-traumatic arthritis, left DRUJ (distal radioulnar joint) post-traumatic arthritis, right Carpal tunnel syndrome on right Carpal tunnel syndrome Bilateral wrist pain documented in this encounter [facility] note* Diagnosis Acute bilateral low back pain without sciatica- Primary [facility] Diagnosis Well adult exam- Primary Routine general medical examination at a rust History of colonic polyps Personal history of colonic polyps Anxiety and depression Dysthymic disorder [facility]* Diagnosis S/P carpal tunnel release- Primary Other postprocedural status documented in this encounter [facility] note* Diagnosis Carpal tunnel syndrome of left wrist- Primary S/P endoscopic carpal tunnel release Other postprocedural status DRUJ (distal radioulnar joint) post-traumatic arthritis, left documented in this encounter [facility] note* Diagnosis Bursitis of other bursa of right knee- Primary documented in this encounter [facility] Work Phone: Evaluation note* Diagnosis Well adult exam- Primary Routine general medical examination at a health care facility History of colonic polyps Personal history of colonic polyps Foot pain, left- Primary Pain in limb Acute maxillary sinusitis, recurrence not specified [facility] Well adult exam- Primary [facility] History of colonic polyps Personal history of colonic polyps Foot pain, left Pain in limb [facility] Diagnosis Well adult exam- Primary Routine [facility] History of colonic polyps Personal history of colonic polyps Tailor's bunion of left foot- Primary Foot pain, left Pain in limb Callus of foot Corns and callosities [facility] Diagnosis Well adult exam- Primary Routine [facility] History of colonic polyps Personal history of colonic polyps Acute maxillary sinusitis, recurrence not specified- Primary [facility] Diagnosis Well adult exam- Primary [facility] History of colonic polyps Personal history of colonic polyps Anxiety and depression Dysthymic disorder [facility] Diagnosis Well adult exam- Primary Routine [facility] History of colonic polyps Personal history of colonic polyps Wellness examination- Primary Anxiety and depression Dysthymic disorder Hyperlipidemia, mixed Mixed hyperlipidemia Screening for colon cancer Special screening for malignant neoplasms, colon [facility] Diagnosis Well adult exam- Primary Routine [facility] History of colonic polyps Personal history of colonic polyps Paroxysmal atrial fibrillation (HCC)- Primary Atrial fibrillation Dizziness and giddiness [facility] Diagnosis Well adult exam- Primary Routine general medical examination at a health care facility History of colonic polyps Personal history of colonic polyps URI, acute- Primary Acute upper respiratory infections of unspecified site Fatigue, unspecified type Acute cough [facility] Additional Instructions Take the metoprolol [...] symptoms including heart palpitations, syncope, and/or chest pain.[facility] Work Phone: Hospital Discharge instructions Additional Instructions Metoprolol was changed to 25 mg twice daily. Continue to monitor your blood pressure and your symptoms. Return back to the ED if symptoms change or worsen. Follow-up with cardiology. Call tomorrow to make an appointment.[facility] Work Phone: Reason for referral (narrative)* Diagnostic Procedure Only (Urgent) - Closed Specialty Diagnoses / Procedures Referred By Contac t Referred To Contact XR IMAGING Diagnoses Foot pain, left Procedures XR FOOT GENERAL 3V AP/LAT/OBL LEFT RADEX FOOT COMPLETE MINIMUM 3 VIEWS Becki Riggins APRN.DOCUMENT MANAGEMENT ANALYST [address] [place] [address] Xr Imaging Referral ID Status Reason Start Date Expiration Date V isits Requested Visits Authorized [id number] Closed Auto-Generate d Referral 08/11/2022 09/10/2023 1 1 [facility] for referral (narrative)* Diagnostic Procedure Only (Urgent) - Closed Specialty Diagnoses / Procedures Referred By Contac t Referred To Contact US IMAGING Diagnoses Leg pain, left Procedures US DVT LOWER LEFT DUP-SCAN XTR VEINS UNILATERAL/LIMITED STUDY Vale Braden APRN.DOCUMENT MANAGEMENT ANALYST [address] [place] [address] [place] [address] Referral ID Status Reason Start Date Expiration Date V isits Requested Visits Authorized [id number] Closed Auto-Generate d Referral 07/19/2023 08/17/2024 1 1 [facility] for referral (narrative)* Diagnostic Procedure Only (Urgent) - Closed Specialty Diagnoses / Procedures Referred By Contac t Referred To Contact US IMAGING Diagnoses Leg pain, left Procedures US DVT LOWER LEFT DUP-SCAN XTR VEINS UNILATERAL/LIMITED STUDY Vale Braden APRN.DOCUMENT MANAGEMENT ANALYST [address] [place] [address] [place] [address] Referral ID Status Reason Start Date Expiration Date V isits Requested Visits Authorized [id number] Closed Auto-Generate d Referral 07/19/2023 08/17/2024 1 1 [facility] for referral (narrative)* Diagnostic Procedure Only (Routine) - Closed Specialty Diagnoses / Procedures Referred By Contac t Referred To Contact XR IMAGING Diagnoses Acute pain of left shoulder Procedures XR SHOULDER GENERAL 3V OR MORE AP/TRUE AP/OTHER LEFT RADEX SHOULDER COMPLETE MINIMUM 2 VIEWS Kenneth Beckett MD [address] [place] [address] [place] [address] Referral ID Status Reason Start Date Expiration Date V isits Requested Visits Authorized [id number] Closed Auto-Generate d Referral 12/01/2023 12/30/2024 1 1 [facility] for referral (narrative)* Diagnostic Procedure Only (Urgent) - Closed Specialty Diagnoses / Procedures Referred By Contac t Referred To Contact XR IMAGING Diagnoses Finger pain, left Procedures XR DIGIT GENERAL 3V FRONTAL/LAT/OBL LEFT RADEX FINGR MINIMUM 2 VIEWS Pam Verdugo PA-C [address] [place] [address] [place] [address] Referral ID Status Reason Start Date Expiration Date V isits Requested Visits Authorized [id number] Closed Auto-Generate d Referral 07/18/2023 08/16/2024 1 1 * Diagnostic Procedure Only (Urgent) - Closed Specialty Diagnoses / Procedures Referred By Contac t Referred To Contact XR IMAGING Diagnoses Left leg swelling Procedures XR TIBIA FIBULA 2V AP/LAT LEFT RADIOLOGIC EXAMINATION TIBIA & FIBULA 2 VIEWS Pam Verdugo PA-C [address] [place] [address] [place] [address] Referral ID Status Reason Start Date Expiration Date V isits Requested Visits Authorized [id number] Closed Auto-Generate d Referral 07/18/2023 08/16/2024 1 1 [facility] for referral (narrative)* Diagnostic Procedure Only (Urgent) - Closed Specialty Diagnoses / Procedures Referred By Contac t Referred To Contact XR IMAGING Diagnoses Foot pain, left Procedures XR FOOT GENERAL 3V AP/LAT/OBL LEFT RADEX FOOT COMPLETE MINIMUM 3 VIEWS Becki Riggins APRN.CNP [address] [place] [address] [place] [address] Referral ID Status Reason Start Date Expiration Date V isits Requested Visits Authorized [id number] Closed Auto-Generate d Referral 08/11/2022 09/10/2023 1 1 [facility] for referral (narrative)No reason for referral information [facility]WTri[facility]* Diagnostic Procedure Only (Routine) - Closed Specialty Diagnoses / Procedures Referred By Contac t Referred To Contact XR IMAGING Diagnoses Acute pain of left shoulder Procedures XR SHOULDER GENERAL 3V OR MORE AP/TRUE AP/OTHER LEFT RADEX SHOULDER COMPLETE MINIMUM 2 VIEWS Kenneth Beckett MD [address] [place] [address] [place] [address] Referral ID Status Reason Start Date Expiration Date V isits Requested Visits Authorized [id number] Closed Auto-Generate d Referral 12/01/2023 12/30/2024 1 1 [facility] for visit Narrative* Diagnostic Procedure Only (Urgent) - Closed Specialty Diagnoses / Procedures Referred By Contac t Referred To Contact XR IMAGING Diagnoses Finger pain, left Procedures XR DIGIT GENERAL 3V FRONTAL/LAT/OBL LEFT RADEX FINGR MINIMUM 2 VIEWS Pam Verdugo PA-C [address] [place] [address] [place] [address] Referral ID Status Reason Start Date Expiration Date V isits Requested Visits Authorized [id number] Closed Auto-Generate d Referral 07/18/2023 08/16/2024 1 1 [facility] for visit Narrative* Diagnostic Procedure Only (Urgent) - Closed Specialty Diagnoses / Procedures Referred By Contac t Referred To Contact XR IMAGING Diagnoses Foot pain, left Procedures XR FOOT GENERAL 3V AP/LAT/OBL LEFT RADEX FOOT COMPLETE MINIMUM 3 VIEWS Becki Riggins, BEHAVIORAL HEALTH CLINICIAN.DOCUMENT MANAGEMENT ANALYST [address] [place] [address] [place] [address] Referral ID Status Reason Start Date Expiration Date V isits Requested Visits Authorized [id number] Closed Auto-Generate d Referral 08/11/2022 09/10/2023 1 1 [facility] for visit Narrative* Auth/Cert (Routine) Specialty Diagnoses / Procedures Referred By Contac t Referred To Contact Diagnoses Pain in right wrist Pain in left wrist Carpal tunnel syndrome, left upper limb Post-traumatic osteoarthritis, left wrist Post-traumatic osteoarthritis, right wrist Carpal tunnel syndrome, right upper limb Procedures TX NDSC WRST SURG W/RLS TRANSVRS CARPL LIGM TX ARTHROCENTESIS ASPIR&/INJ INTERM JT/BURS W/O US ENDOSCOPIC LEFT CARPAL TUNNEL RELEASE, LEFT ULNOCARPAL JOINT INJECTION ARTHROCENTESIS ASPIRATION AND/OR INJECTION INTERMEDIATE JOINT OR BURSA Edinson Alanis MD 1 [facility] [address] [place] [address] Phone: tel: fax: Referral ID Status Reason Start Date Expiration Date Visits Re quested Visits Authorized [id number] 09/29/2024 1 1 [facility] for visit Narrative* Diagnostic Procedure Only (Routine) - Closed Specialty Diagnoses / Procedures Referred By Contac t Referred To Contact XR IMAGING Diagnoses Foot pain, left Procedures XR FOOT GENERAL 3V AP/LAT/OBL LEFT RADEX FOOT COMPLETE MINIMUM 3 VIEWS Hanh Sharma BEHAVIORAL HEALTH CLINICIAN.DOCUMENT MANAGEMENT ANALYST [address] [place] [address] Phone: tel: fax: [place] [address] Referral ID Status Reason Start Date Expiration Date V isits Requested Visits Authorized [id number] Closed Auto-Generate d Referral 01/22/2025 02/21/2026 1 1 [facility] Summary Purpose Family History No Family History Records Found Relationship Condition Age at Onset Recorded Date/T charles mother Alzheimer's disease Unknown father Neoplasm of brain Unknown Status post lobectomy of lung Unknown Status post nephrectomy Unknown Malignant neoplasm Unknown brother Chronic obstructive pulmonary disease Unk nown sister Alzheimer's disease Unknown Advance Directives No Advanced Directives Records FoundDocuments on File Type Date Recorded Patient Data Analytics Developer Expl anation Advance Directive(s) 11/27/2016 3:26 PM Date Activated Date Inactivated Comments 10/20/2024 9:08 AM 10/20/2024 3:11 PM Date Activated Date Inactivated Comments 10/20/2024 9:08 AM 10/20/2024 3:11 PM Advance Directive Response Recorded Date/ Time Do you have a Healthcare Power of Attraction Attendant? No April 30, 2025 4:03pm Advance Directives No December 12:48pm Advance Directive Response Recorded Date/ Time Do you have a Healthcare Power of Attraction Attendant? No May 04, 2025 3:22am Do you have a Healthcare Power of Attraction Attendant? No April 30, 2025 4:03pm Advance Directives No December 12:48pm Reason for Referral Specialty Diagnoses / Procedures Referred By Shanelle reid Referred To Contact Cardiology Diagnoses SOB (shortness of breath) Procedures CONSULT TO CARDIOLOGY Kenneth Bcekett MD [address] [place] [address] Referral ID Status Reason Start Date Expiration Date Visits Requested Visits Authorized [id number] Ref Not Required PCP Requested Referral 12/16/2022 12/16/2023 1 1 Specialty Diagnoses / Procedures Referred By Shanelle reid Referred To [facility] Diagnoses SOB (shortness of breath) Procedures LUNG DIFFUSION CAPACITY (DLCO) DIFFUSING CAPACITY Kenneth Beckett MD [address] [place] [address] [facility] [place] [address] [place] [address] Referral ID Status Reason Start Date Expiration Date Visits Requested Visits Authorized [id number] Authorized Auto-Generat ed Referral 12/16/2022 01/15/2024 1 1 Specialty Diagnoses / Procedures Referred By Contac t Referred To [facility] Diagnoses SOB (shortness of breath) Procedures LUNG VOLUMES Kenneth Beckett MD [address] [place] [address] [facility] [place] [address] [place] [address] Referral ID Status Reason Start Date Expiration Date Visits Requested Visits Authorized [id number] Pending Review Auto-Generat ed Referral 12/16/2022 01/15/2024 1 1 Specialty Diagnoses / Procedures Referred By Contac t Referred To Contact [facility] Diagnoses SOB (shortness of breath) Procedures SPIROMETRY - BASELINE AND POST DILATOR BRNCDILAT RSPSE SPMTRY PRE&POST-BRNCDILAT ADMN Kenneth Beckett MD [address] [place] [address] [address] Referral ID Status Reason Start Date Expiration Date Visits Requested Visits Authorized [id number] Authorized Auto-Generat ed Referral 12/16/2022 01/15/2024 1 1 Specialty Diagnoses / Procedures Referred By Contac t Referred [facility] Diagnoses SOB (shortness of breath) Procedures ECG COMPLETE ECG ROUTINE ECG W/LEAST 12 LDS W/I&R Kenneth Beckett MD [address] [place] [address] [facility] [address] [address] Referral ID Status Reason Start Date Expiration Date V isits Requested Visits Authorized [id number] Closed Auto-Generate d Referral 12/16/2022 12/16/2023 1 [...] Visit Chief Complaint Admit Date 1 Y FU January 15, 2025 2:2 8pm AFIB April 30, 2025 3:04 pm Reason for Visit Admit Date Paroxysmal atrial fibrillation January 2:28pm Chief Complaint Admit Date 1 Y FU January 15, 2025 2:2 8pm AFIB April 30, 2025 3:04 pm S/P [facility] 04/30May 02, 2025 10:4 5am Chief Complaint Admit Date Y January 15, 2025 2:2 8pm AFIB April 30, 2025 3:04 pm S/P [facility] 04/30May 02, 2025 10:4 5am INT LAB ORDER May 02, 2025 12:1 3pm palpitations May 04, 2025 3:20 am Reason for Visit Admit Date Paroxysmal atrial fibrillation January 2:28pm Paroxysmal atrial fibrillation April 10:45am Chief Complaint Admit Date AFIB April 30, 2025 3:04 pm S/P [facility] 04/30May 02, 2025 10:4 5am INT LAB ORDER May 02, 2025 12:1 3pm palpitations May 04, 2025 3:20 am 4 W FU May 28, 2025 11:0 3am Reason for Visit Admit Date Paroxysmal atrial fibrillation April 10:45am Chief Complaint Admit Date AFIB April 30, 2025 3:04 pm S/P [facility] 04/30May 02, 2025 10:4 5am INT LAB ORDER May 02, 2025 12:1 3pm palpitations May 04, 2025 3:20 am 4 W FU May 28, 2025 11:0 3am AFIB June 18, 2025 9: 25am Reason for Visit Admit Date Paroxysmal atrial fibrillation April 10:45am Paroxysmal atrial fibrillation May 11:03am Additional Source Comments (unrecognized sect ion and content) No Status Records FoundNo Status Records FoundNo Status Records FoundNo Status Records FoundNo Status Records FoundNo Status Records FoundNo Status Records FoundNo Status Records Found INFORMATION SOURCE (unrecogn ized section and content) DATE CREATED AUTHOR 06/19/2019 [facility] DATE CREATED AUTHOR AUTHOR'S ORGANIZ ATION 06/09/2021 [facility] DATE CREATED AUTHOR AUTHOR'S ORGANIZ ATION 09/07/2024 [facility] DATE CREATED AUTHOR AUTHOR'S ORGANIZ ATION 12/02/2024 [facility] DATE CREATED AUTHOR AUTHOR'S ORGANIZ ATION 12/27/2024 [facility] DATE CREATED AUTHOR AUTHOR'S ORGANIZ ATION 12/31/2024 [facility] DATE CREATED AUTHOR AUTHOR'S ORGANIZ ATION 06/24/2025 [facility] DATE CREATED AUTHOR AUTHOR'S ORGANIZ ATION 07/23/2025 [facility] Source Comments (unrecognize d section and content) In the event this informatio n is protected by the Federal Confidentiality of Alcohol and Drug Abuse Patient Records regulations: The Federal rules restrict any use of the information to criminally investigate or prosecute any alcohol or drug abuse patient.[facility] the event this information is protected by the Federal Confidentiality of Alcohol and Drug Abuse Patient Records regulations: The Federal rules restrict any use of the information to criminally investigate or prosecute any alcohol or drug abuse patient.[facility] the event this information is protected by the Federal Confidentiality of Alcohol and Drug Abuse Patient Records regulations: The Federal rules restrict any use of the information to criminally investigate or prosecute any alcohol or drug abuse patient.[facility] the event this information is protected by the Federal Confidentiality of Alcohol and Drug Abuse Patient Records regulations: The Federal rules restrict any use of the information to criminally investigate or prosecute any alcohol or drug abuse patient.[facility] the event this information is protected by the Federal Confidentiality of Alcohol and Drug Abuse Patient Records regulations: The Federal rules restrict any use of the information to criminally investigate or prosecute any alcohol or drug abuse patient.[facility] the event this information is protected by the Federal Confidentiality of Alcohol and Drug Abuse Patient Records regulations: The Federal rules restrict any use of the information to criminally investigate or prosecute any alcohol or drug abuse patient.[facility] the event this information is protected by the Federal Confidentiality of Alcohol and Drug Abuse Patient Records regulations: The Federal rules restrict any use of the information to criminally investigate or prosecute any alcohol or drug abuse patient.[facility] the event this information is protected by the Federal Confidentiality of Alcohol and Drug Abuse Patient Records regulations: The Federal rules restrict any use of the information to criminally investigate or prosecute any alcohol or drug abuse patient.[facility] the event this information is protected by the Federal Confidentiality of Alcohol and Drug Abuse Patient Records regulations: The Federal rules restrict any use of the information to criminally investigate or prosecute any alcohol or drug abuse patient.[facility] the event this information is protected by the Federal Confidentiality of Alcohol and Drug Abuse Patient Records regulations: The Federal rules restrict any use of the information to criminally investigate or prosecute any alcohol or drug abuse patient.[facility] the event this information is protected by the Federal Confidentiality of Alcohol and Drug Abuse Patient Records regulations: The Federal rules restrict any use of the information to criminally investigate or prosecute any alcohol or drug abuse patient.[facility] the event this information is protected by the Federal Confidentiality of Alcohol and Drug Abuse Patient Records regulations: The Federal rules restrict any use of the information to criminally investigate or prosecute any alcohol or drug abuse patient.[facility] the event this information is protected by the Federal Confidentiality of Alcohol and Drug Abuse Patient Records regulations: The Federal rules restrict any use of the information to criminally investigate or prosecute any alcohol or drug abuse patient.[facility] the event this information is protected by the Federal Confidentiality of Alcohol and Drug Abuse Patient Records regulations: The Federal rules restrict any use of the information to criminally investigate or prosecute any alcohol or drug abuse patient.[facility] the event this information is protected by the Federal Confidentiality of Alcohol and Drug Abuse Patient Records regulations: The Federal rules restrict any use of the information to criminally investigate or prosecute any alcohol or drug abuse patient.[facility] the event this information is protected by the Federal Confidentiality of Alcohol and Drug Abuse Patient Records regulations: The Federal rules restrict any use of the information to criminally investigate or prosecute any alcohol or drug abuse patient.[facility] the event this information is protected by the Federal Confidentiality of Alcohol and Drug Abuse Patient Records regulations: The Federal rules restrict any use of the information to criminally investigate or prosecute any alcohol or drug abuse patient.[facility] the event this information is protected by the Federal Confidentiality of Alcohol and Drug Abuse Patient Records regulations: The Federal rules restrict any use of the information to criminally investigate or prosecute any alcohol or drug abuse patient.[facility] the event this information is protected by the Federal Confidentiality of Alcohol and Drug Abuse Patient Records regulations: The Federal rules restrict any use of the information to criminally investigate or prosecute any alcohol or drug abuse patient.[facility] Hospital[facility] the event this information is protected by the Federal Confidentiality of Alcohol and Drug Abuse Patient Records regulations: The Federal rules restrict any use of the information to criminally investigate or prosecute any alcohol or drug abuse patient.[facility] the event this information is protected by the Federal Confidentiality of Alcohol and Drug Abuse Patient Records regulations: The Federal rules restrict any use of the information to criminally investigate or prosecute any alcohol or drug abuse patient.[facility] the event this information is protected by the Federal Confidentiality of Alcohol and Drug Abuse Patient Records regulations: The Federal rules restrict any use of the information to criminally investigate or prosecute any alcohol or drug abuse patient.[facility] the event this information is protected by the Federal Confidentiality of Alcohol and Drug Abuse Patient Records regulations: The Federal rules restrict any use of the information to criminally investigate or prosecute any alcohol or drug abuse patient.[facility] Hospital[facility] the event this information is protected by the Federal Confidentiality of Alcohol and Drug Abuse Patient Records regulations: The Federal rules restrict any use of the information to criminally investigate or prosecute any alcohol or drug abuse patient.[facility] HospitalIn the event this information is protected by the Federal Confidentiality of Alcohol and Drug Abuse Patient Records regulations: The Federal rules restrict any use of the information to criminally investigate or prosecute any alcohol or drug abuse patient.[facility] HospitalIn the event this information is protected by the Federal Confidentiality of Alcohol and Drug Abuse Patient Records regulations: The Federal rules restrict any use of the information to criminally investigate or prosecute any alcohol or drug abuse patient.[facility] HospitalIn the event this information is protected by the Federal Confidentiality of Alcohol and Drug Abuse Patient Records regulations: The Federal rules restrict any use of the information to criminally investigate or prosecute any alcohol or drug abuse patient.[facility] HospitalIn the event this information is protected by the Federal Confidentiality of Alcohol and Drug Abuse Patient Records regulations: The Federal rules restrict any use of the information to criminally investigate or prosecute any alcohol or drug abuse patient.[facility] HospitalIn the event this information is protected by the Federal Confidentiality of Alcohol and Drug Abuse Patient Records regulations: The Federal rules restrict any use of the information to criminally investigate or prosecute any alcohol or drug abuse patient.[facility] HospitalIn the event this information is protected by the Federal Confidentiality of Alcohol and Drug Abuse Patient Records regulations: The Federal rules restrict any use of the information to criminally investigate or prosecute any alcohol or drug abuse patient.[facility] HospitalIn the event this information is protected by the Federal Confidentiality of Alcohol and Drug Abuse Patient Records regulations: The Federal rules restrict any use of the information to criminally investigate or prosecute any alcohol or drug abuse patient.[facility] HospitalIn the event this information is protected by the Federal Confidentiality of Alcohol and Drug Abuse Patient Records regulations: The Federal rules restrict any use of the information to criminally investigate or prosecute any alcohol or drug abuse patient.[facility] HospitalIn the event this information is protected by the Federal Confidentiality of Alcohol and Drug Abuse Patient Records regulations: The Federal rules restrict any use of the information to criminally investigate or prosecute any alcohol or drug abuse patient.[facility] HospitalIn the event this information is protected by the Federal Confidentiality of Alcohol and Drug Abuse Patient Records regulations: The Federal rules restrict any use of the information to criminally investigate or prosecute any alcohol or drug abuse patient.[facility] HospitalIn the event this information is protected by the Federal Confidentiality of Alcohol and Drug Abuse Patient Records regulations: The Federal rules restrict any use of the information to criminally investigate or prosecute any alcohol or drug abuse patient.[facility] HospitalIn the event this information is protected by the Federal Confidentiality of Alcohol and Drug Abuse Patient Records regulations: The Federal rules restrict any use of the information to criminally investigate or prosecute any alcohol or drug abuse patient.[facility] HospitalIn the event this information is protected by the Federal Confidentiality of Alcohol and Drug Abuse Patient Records regulations: The Federal rules restrict any use of the information to criminally investigate or prosecute any alcohol or drug abuse patient.[facility] HospitalIn the event this information is protected by the Federal Confidentiality of Alcohol and Drug Abuse Patient Records regulations: The Federal rules restrict any use of the information to criminally investigate or prosecute any alcohol or drug abuse patient.[facility] HospitalIn the event this information is protected by the Federal Confidentiality of Alcohol and Drug Abuse Patient Records regulations: The Federal rules restrict any use of the information to criminally investigate or prosecute any alcohol or drug abuse patient.[facility] HospitalIn the event this information is protected by the Federal Confidentiality of Alcohol and Drug Abuse Patient Records regulations: The Federal rules restrict any use of the information to criminally investigate or prosecute any alcohol or drug abuse patient.[facility] HospitalIn the event this information is protected by the Federal Confidentiality of Alcohol and Drug Abuse Patient Records regulations: The Federal rules restrict any use of the information to criminally investigate or prosecute any alcohol or drug abuse patient.[facility] HospitalIn the event this information is protected by the Federal Confidentiality of Alcohol and Drug Abuse Patient Records regulations: The Federal rules restrict any use of the information to criminally investigate or prosecute any alcohol or drug abuse patient.[facility] HospitalIn the event this information is protected by the Federal Confidentiality of Alcohol and Drug Abuse Patient Records regulations: The Federal rules restrict any use of the information to criminally investigate or prosecute any alcohol or drug abuse patient.[facility] HospitalIn the event this information is protected by the Federal Confidentiality of Alcohol and Drug Abuse Patient Records regulations: The Federal rules restrict any use of the information to criminally investigate or prosecute any alcohol or drug abuse patient.[facility] HospitalIn the event this information is protected by the Federal Confidentiality of Alcohol and Drug Abuse Patient Records regulations: The Federal rules restrict any use of the information to criminally investigate or prosecute any alcohol or drug abuse patient.[facility] HospitalIn the event this information is protected by the Federal Confidentiality of Alcohol and Drug Abuse Patient Records regulations: The Federal rules restrict any use of the information to criminally investigate or prosecute any alcohol or drug abuse patient.[facility] HospitalIn the event this information is protected by the Federal Confidentiality of Alcohol and Drug Abuse Patient Records regulations: The Federal rules restrict any use of the information to criminally investigate or prosecute any alcohol or drug abuse patient.[facility] HospitalIn the event this information is protected by the Federal Confidentiality of Alcohol and Drug Abuse Patient Records regulations: The Federal rules restrict any use of the information to criminally investigate or prosecute any alcohol or drug abuse patient.[facility] HospitalIn the event this information is protected by the Federal Confidentiality of Alcohol and Drug Abuse Patient Records regulations: The Federal rules restrict any use of the information to criminally investigate or prosecute any alcohol or drug abuse patient.[facility] HospitalIn the event this information is protected by the Federal Confidentiality of Alcohol and Drug Abuse Patient Records regulations: The Federal rules restrict any use of the information to criminally investigate or prosecute any alcohol or drug abuse patient.[facility] HospitalIn the event this information is protected by the Federal Confidentiality of Alcohol and Drug Abuse Patient Records regulations: The Federal rules restrict any use of the information to criminally investigate or prosecute any alcohol or drug abuse patient.[facility] HospitalIn the event this information is protected by the Federal Confidentiality of Alcohol and Drug Abuse Patient Records regulations: The Federal rules restrict any use of the information to criminally investigate or prosecute any alcohol or drug abuse patient.[facility] HospitalIn the event this information is protected by the Federal Confidentiality of Alcohol and Drug Abuse Patient Records regulations: The Federal rules restrict any use of the information to criminally investigate or prosecute any alcohol or drug abuse patient.[facility] HospitalIn the event this information is protected by the Federal Confidentiality of Alcohol and Drug Abuse Patient Records regulations: The Federal rules restrict any use of the information to criminally investigate or prosecute any alcohol or drug abuse patient.[facility] HospitalIn the event this information is protected by the Federal Confidentiality of Alcohol and Drug Abuse Patient Records regulations: The Federal rules restrict any use of the information to criminally investigate or prosecute any alcohol or drug abuse patient.[facility] HospitalIn the event this information is protected by the Federal Confidentiality of Alcohol and Drug Abuse Patient Records regulations: The Federal rules restrict any use of the information to criminally investigate or prosecute any alcohol or drug abuse patient.[facility] HospitalIn the event this information is protected by the Federal Confidentiality of Alcohol and Drug Abuse Patient Records regulations: The Federal rules restrict any use of the information to criminally investigate or prosecute any alcohol or drug abuse patient.[facility] HospitalIn the event this information is protected by the Federal Confidentiality of Alcohol and Drug Abuse Patient Records regulations: The Federal rules restrict any use of the information to criminally investigate or prosecute any alcohol or drug abuse patient.[facility] HospitalIn the event this information is protected by the Federal Confidentiality of Alcohol and Drug Abuse Patient Records regulations: The Federal rules restrict any use of the information to criminally investigate or prosecute any alcohol or drug abuse patient.[facility] HospitalIn the event this information is protected by the Federal Confidentiality of Alcohol and Drug Abuse Patient Records regulations: The Federal rules restrict any use of the information to criminally investigate or prosecute any alcohol or drug abuse patient.[facility] HospitalIn the event this information is protected by the Federal Confidentiality of Alcohol and Drug Abuse Patient Records regulations: The Federal rules restrict any use of the information to criminally investigate or prosecute any alcohol or drug abuse patient.[facility] Reason for Visit (unrecogniz ed section and [...] Up Specialty Diagnoses / Procedures Referred By Shanelle reid Referred To Contact Internal Medicine / FAMILY MEDICINE Diagnoses Follow-up exam Follow up Procedures OFFICE/OUTPATIENT ESTABLISHED MOD MDM 30-39 MIN 4C EST Kenneth Beckett MD [address] [place] [id number] Kenneth Beckett MD [address] [place] [address] Referral ID Status Reason Start Date Expiration Date Visits Re quested Visits Authorized [id number] Closed 12/16/2022 11/07/2023 1 1 Reason Comments Spirometry Specialty Diagnoses / Procedures Referred By Contjasmin reid Referred To Contact [facility] Diagnoses SOB (shortness of breath) Procedures SPIROMETRY - BASELINE AND POST DILATOR BRNCDILAT RSPSE SPMTRY PRE&POST-BRNCDILAT ADMN Kenneth Beckett MD [address] [place] [address] [facility] [place] [address] [place] [address] Referral ID Status Reason Start Date Expiration Date V isits Requested Visits Authorized [id number] Closed Auto-Generate d Referral 12/28/2022 11/07/2023 1 [...] LEFT DUP-SCAN XTR VEINS UNILATERAL/LIMITED STUDY Vale Braden, BEHAVIORAL HEALTH CLINICIAN.DOCUMENT MANAGEMENT ANALYST [address] [place] [address] [place] [address] Referral ID Status Reason Start Date Expiration Date V isits Requested Visits Authorized [id number] Closed Auto-Generate d Referral 07/19/2023 08/17/2024 1 [...] Referred To Contact Radiology / [facility] Diagnoses Follow-up exam ML Procedures RADIOLOGIC EXAM CHEST 2 VIEWS XR CHEST Kenneth Beckett MD [address] [place] [address] [facility] [address] [place] [address] Referral ID Status Reason Start Date Expiration Date Visits Re quested Visits Authorized [id number] Closed 12/16/2022 11/07/2023 1 1 Reason Comments [...] Pain Specialty Diagnoses / Procedures Referred By Contjasmin t Referred To Contact Podiatry Diagnoses Foot pain, left Procedures CONSULT TO PODIATRY OFFICE/OUTPATIENT NEW HIGH MDM 60 MINUTES Hanh Sharma APRN.DOCUMENT MANAGEMENT ANALYST [address] [place] [address] Phone: tel: fax: Referral ID Status Reason Start Date Expiration Date V isits Requested Visits Authorized [id number] Closed PCP Requested Referral 01/22/2025 01/22/2026 1 1 Reason Comments Acute Visit Cough, congestion, e ar pressure for about a week Reason Onset Date Comments Refill Request 03/16/2025 Reason Comments Yearly Exam Reason Onset Date Comments Results 04/24/2025 Reason Comments Acute Visit Cough, sinus drainag e, episodes of dizziness, fatigue over the weekend Reason Comments Breathing Problem Reason Comments Acute Visit No energy, mid-low b ack pain, mild cough x4 days; no fevers; recent travel to [place] by car Care Teams (unrecognized sec tion and content) Bilingual Manager Relationship Specialty Start Date End Date Kenneth Beckett MD [address] [place] [address] PCP - General Family Practice 09/14/13 Bilingual Manager Relationship Specialty Start Date End Date Kenneth Beckett MD [address] [place], [place] [id number] PCP - General Family Practice 09/14/13 Bilingual Manager Relationship Specialty Start Date End Date Kenneth Beckett MD [address] [place] [address] PCP - General Family Medicine 09/14/13 Bilingual Manager Relationship Specialty Start Date End Date Kenneth Beckett MD [address] [place] [address] PCP - General Family Medicine 09/14/13 Bilingual Manager Relationship Specialty Start Date End Date Kenneth Beckett MD [address] [place] [address] PCP - General Family Medicine 09/14/13 Bilingual Manager Relationship Specialty Start Date End Date Kenneth Beckett MD [address] [place] [address] PCP - General Family Medicine 09/14/13 Bilingual Manager Relationship Specialty Start Date End Date Kenneth Beckett MD [address] [place] [address] PCP - General Family Medicine 09/14/13 Bilingual Manager Relationship Specialty Start Date End Date Kenneth Beckett MD [address] [place] [address] PCP - General Family Medicine 09/14/13 Bilingual Manager Relationship Specialty Start Date End Date Kenneth Beckett MD [address] [place] [address] PCP - General Family Medicine 09/14/13 Bilingual Manager Relationship Specialty Start Date End Date Kenneth Beckett MD [address] [place] [address] PCP - General Family Medicine 09/14/13 Bilingual Manager Relationship Specialty Start Date End Date Kenneth Beckett MD [address] [place] [address] PCP - General Family Medicine 09/14/13 Bilingual Manager Relationship Specialty Start Date End Date Kenneth Beckett MD [address] [place] [address] PCP - General Family Medicine 09/14/13 Bilingual Manager Relationship Specialty Start Date End Date Kenneth Beckett MD [address] [place] [address] PCP - General Family Medicine 09/14/13 Bilingual Manager Relationship Specialty Start Date End Date Kenneth Beckett MD [address] [place] [address] PCP - General Family Medicine 09/14/13 Bilingual Manager Relationship Specialty Start Date End Date Kenneth Beckett MD [address] [place] [address] PCP - General Family Medicine 09/14/13 Bilingual Manager Relationship Specialty Start Date End Date Kenneth Beckett MD [address] [place] [address] PCP - General Family Medicine 09/14/13 Bilingual Manager Relationship Specialty Start Date End Date Kenneth Beckett MD [address] [place] [address] PCP - General Family Medicine 09/14/13 Bilingual Manager Relationship Specialty Start Date End Date Kenneth Beckett MD [address] [place] [address] PCP - General Family Medicine 09/14/13 Bilingual Manager Relationship Specialty Start Date End Date Kenneth Beckett MD [address] [place] [address] PCP - General Family Medicine 09/14/13 Bilingual Manager Relationship Specialty Start Date End Date Kenneth Beckett MD [address] [place] [address] PCP - General Family Medicine 09/14/13 Bilingual Manager Relationship Specialty Start Date End Date Kenneth Beckett MD [address] [place] [address] PCP - General Family Medicine 09/14/13 Bilingual Manager Relationship Specialty Start Date End Date Kenneth Beckett MD [address] [place] [address] PCP - General Family Medicine 09/14/13 Bilingual Manager Relationship Specialty Start Date End Date Kenneth Beckett MD [address] [place] [address] PCP - General Family Medicine 09/14/13 Bilingual Manager Relationship Specialty Start Date End Date Kenneth Beckett MD [address] [place] [address] PCP - General Family Medicine 09/14/13 Bilingual Manager Relationship Specialty Start Date End Date Kenneth Beckett MD [address] [place] [address] PCP - General Family Medicine 09/14/13 Bilingual Manager Relationship Specialty Start Date End Date Kenneth Beckett MD [address] [facility], [place] [address] PCP - General Family Medicine 09/14/13 Bilingual Manager Relationship Specialty Start Date End Date Kenneth Beckett MD [address] [place] [address] PCP - General Family Medicine 09/14/13 Bilingual Manager Relationship Specialty Start Date End Date Kenneth Beckett MD [address] [facility], [place] [address] PCP - General Family Medicine 09/14/13 Bilingual Manager Relationship Specialty Start Date End Date Kenneth Beckett MD [address] [facility] [place], [place] [address] PCP - General Family Medicine 09/14/13 Bilingual Manager Relationship Specialty Start Date End Date Kenneth Beckett MD [address] [facility], [place] [address] PCP - General Family Medicine 09/14/13 Bilingual Manager Relationship Specialty Start Date End Date Kenneth Beckett MD [address] [place] [address] PCP - General Family Medicine 09/14/13 Bilingual Manager Relationship Specialty Start Date End Date Kenneth Beckett MD [address] [facility] Mail Code [address] [place], [place] [address] PCP - General Family Medicine 09/05/24 Bilingual Manager Relationship Specialty Start Date End Date Kenneth Bekcett MD [address] [place] [address] PCP - General Family Medicine 09/14/13 Yennifer Worrell APRN.DOCUMENT MANAGEMENT ANALYST [address] [facility], [place] [address] Branch Library Clerk Family Medicine 10/16/24 Hanh Sharma APRN.DOCUMENT MANAGEMENT ANALYST [address] [place] [address] Branch Library Clerk Family Medicine 10/16/24 Bilingual Manager Relationship Specialty Start Date End Date Kenneth Beckett MD [address] [place] [address] PCP - General Family Medicine 09/14/13 Yennifer Worrell APRN.DOCUMENT MANAGEMENT ANALYST [address] [facility] [place] [address] Branch Library Clerk Family Medicine 10/16/24 Hanh Sharma BEHAVIORAL HEALTH CLINICIAN.DOCUMENT MANAGEMENT ANALYST [address] [place] [address] [facility] 10/16/24 Bilingual Manager Relationship Specialty Start Date End Date Kenneth Beckett MD [address] [place] [address] PCP - General Family Medicine 12/25/24 Bilingual Manager Relationship Specialty Start Date End Date Kenneth Beckett MD [address] [place] [address] PCP - General Family Medicine 09/14/13 Yennifer Worrell BEHAVIORAL HEALTH CLINICIAN.DOCUMENT MANAGEMENT ANALYST [address] [place] [address] Branch Library Clerk Family Medicine 10/16/24 Hanh Sharma BEHAVIORAL HEALTH CLINICIAN.DOCUMENT MANAGEMENT ANALYST [address] [place] [address] Branch Library Clerk Family Medicine 10/16/24 Bilingual Manager Relationship Specialty Start Date End Date Kenneth Beckett MD [address] [place] [address] PCP - General Family Medicine 09/14/13 Yennifer Worrell APRN.DOCUMENT MANAGEMENT ANALYST [address] [place] [address] Branch Library Clerk Family Medicine 10/16/24 Hanh Sharma APRN.DOCUMENT MANAGEMENT ANALYST [address] [place] [address] Branch Library Clerk Family Medicine 10/16/24 Bilingual Manager Relationship Specialty Start Date End Date Kenneth Beckett MD [address] [place] [address] PCP - General Family Medicine 09/14/13 Yennifer Worrell APRN.DOCUMENT MANAGEMENT ANALYST [address] [place] [address] Branch Library Clerk [facility] Medicine 10/16/24 Hanh Sharma APRN.DOCUMENT MANAGEMENT ANALYST [address] [place] [address] [facility] 10/16/24 Bilingual Manager Relationship Specialty Start Date End Date Kenneth Beckett MD [address] [place] [address] PCP - General Family Medicine 09/14/13 Yennifer Worrell APRN.DOCUMENT MANAGEMENT ANALYST [address] [place] [address] Branch Library Clerk Family Medicine 10/16/24 Hanh Sharma BEHAVIORAL HEALTH CLINICIAN.DOCUMENT MANAGEMENT ANALYST [address] [place] [address] [facility] 10/16/24 Bilingual Manager Relationship Specialty Start Date End Date Kenneth Beckett MD [address] [place] [address] PCP - General Family Medicine 09/14/13 Yennifer Worrell APRN.DOCUMENT MANAGEMENT ANALYST [address] [facility] [place] [address] Branch Library Clerk Family Medicine 10/16/24 Hanh Sharma APRN.DOCUMENT MANAGEMENT ANALYST [address] [place] [address] [facility] 10/16/24 Bilingual Manager Relationship Specialty Start Date End Date Kenneth Beckett MD [address] [place] [address] PCP - General Family Medicine 09/14/13 Yennifer Worrell APRN.DOCUMENT MANAGEMENT ANALYST [address] [place] [address] [facility] 10/16/24 Hanh Sharma APRN.DOCUMENT MANAGEMENT ANALYST [address] [place] [address] [facility] 10/16/24 Bilingual Manager Relationship Specialty Start Date End Date Kenneth Beckett MD [address] [place] [address] PCP - General Family Medicine 09/14/13 Yennifer Worrell APRN.DOCUMENT MANAGEMENT ANALYST [address] [place] [address] Branch [facility] 10/16/24 Hanh Sharma APRN.DOCUMENT MANAGEMENT ANALYST [address] [place] [address] [facility] 10/16/24 Bilingual Manager Relationship Specialty Start Date End Date Kenneth Beckett MD [address] [facility] [place] [address] PCP - General Family Medicine 09/14/13 Yennifer Worrell, BEHAVIORAL HEALTH CLINICIAN.DOCUMENT MANAGEMENT ANALYST [address] [facility] [place] [address] [facility] 10/16/24 Hanh Sharma BEHAVIORAL HEALTH CLINICIAN.DOCUMENT MANAGEMENT ANALYST [address] [facility] [place] [id number] [facility] 10/16/24 Team Status: Active Member Role Status [...] April 30, 2025 End: April 30, 2025 Bilingual Manager Relationship Specialty Start Date End Date Kenneth Beckett MD [address] [facility] [place] [address] PCP - General Family Medicine 09/14/13 Yennifer Worrell, BEHAVIORAL HEALTH CLINICIAN.DOCUMENT MANAGEMENT ANALYST [address] [facility] [place] [address] [facility] 10/16/24 Hanh Sharma APRN.DOCUMENT MANAGEMENT ANALYST [address] [place] [address] Branch Library Clerk Family Medicine 10/16/24 Team Status: Inactive Member Role Status Dates Dr. Kenneth Beckett MD Primary Care Provider Active Start: May 02, 2025 End: May 02, 2025 Dr. Kenneth Beckett MD Referring Provider Active Start: May 02, 2025 End: May 02, 2025 ANGELITO Hammond Attending Provider Active St art: May 02, 2025 End: May 02, 2025 Team Status: Active Member Role Status Dates Dr. Kenneth Beckett MD Primary Care Provider Active Start: May 02, 2025 ANGELITO Hammond Attending Provider Active St art: May 02, 2025 ANGELITO Hammond Referring Provider Active St art: May 02, 2025 Team Status: Inactive Member Role Status Dates Dr. Kenneth Beckett MD Primary Care Provider Active Start: May 04, 2025 End: May 04, 2025 Dr. Morro Hodges DO Emergency Provider Activ e Start: May 04, 2025 End: May 04, 2025 Team Status: Active Member Role/Relationship Status Dates Dr. Kenneth Beckett MD Primary Care Provider Active Team Status: Inactive Member Role/Relationship Status Dates Dr. Kenneth Beckett MD Primary Care Provider Active Start: January 15, 2025 End: January 15, 2025 Dr. Kenneth Beckett MD Referring Provider Active Start: January 15, 2025 End: January 15, 2025 Dr. Ole Moss MD Attending Provider Active Start: January 15, 2025 End: January 15, 2025 Team Status: Inactive Member Role/Relationship Status Dates Dr. Kenneth Beckett MD Primary Care Provider Active Start: April 30, 2025 End: April 30, 2025 Lee Jaeger MD Attending Provider Active Star t: April 30, 2025 End: April 30, 2025 Lee Jaeger MD Referring Provider Active Star t: April 30, 2025 End: April 30, 2025 Lee Jaeger MD Emergency Provider Active Star t: April 30, 2025 End: April 30, 2025 Team Status: Inactive Member Role/Relationship Status Dates Dr. Kenneth Beckett MD Primary Care Provider Active Start: May 02, 2025 End: May 02, 2025 Dr. Kenneth Beckett MD Referring Provider Active Start: May 02, 2025 End: May 02, 2025 ANGELITO Hammond Attending Provider Active St art: May 02, 2025 End: May 02, 2025 Team Status: Inactive Member Role/Relationship Status Dates Dr. Kenneth Beckett MD Primary Care Provider Active Start: May 02, 2025 End: May 02, 2025 ANGELITO Hammond Attending Provider Active St art: May 02, 2025 End: May 02, 2025 ANGELITO Hammond Referring Provider Active St art: May 02, 2025 End: May 02, 2025 Team Status: Inactive Member Role/Relationship Status Dates Dr. Kenneth Beckett MD Primary Care Provider Active Start: May 04, 2025 End: May 04, 2025 Dr. Morro Hodges DO Emergency Provider Activ e Start: May 04, 2025 End: May 04, 2025 Team Status: Inactive Member Role/Relationship Status Dates Dr. Kenneth Beckett MD Primary Care Provider Active Start: April 30, 2025 End: April 30, 2025 Lee Jaeger MD Attending Provider Active Star t: April 30, 2025 End: April 30, 2025 Lee Jaeger MD Referring Provider Active Star t: April 30, 2025 End: April 30, 2025 Lee Jaeger MD Emergency Provider Active Star t: April 30, 2025 End: April 30, 2025 Team Status: Inactive Member Role/Relationship Status Dates Dr. Kenneth Beckett MD Primary Care Provider Active Start: May 02, 2025 End: May 02, 2025 Dr. Kenneth Beckett MD Referring Provider Active Start: May 02, 2025 End: May 02, 2025 ANGELITO Hammond Attending Provider Active St art: May 02, 2025 End: May 02, 2025 Team Status: Inactive Member Role/Relationship Status Dates Dr. Kenneth Beckett MD Primary Care Provider Active Start: May 02, 2025 End: May 02, 2025 ANGELITO Hammond Attending Provider Active St art: May 02, 2025 End: May 02, 2025 ANGELITO Hammond Referring Provider Active St art: May 02, 2025 End: May 02, 2025 Team Status: Inactive Member Role/Relationship Status Dates Dr. Kneneth Beckett MD Primary Care Provider Active Start: May 04, 2025 End: May 04, 2025 Dr. Morro Hodges DO Attending Provider Activ e Start: May 04, 2025 End: May 04, 2025 Dr. Morro Hodges , Emergency Provider Activ e Start: May 04, 2025 End: May 04, 2025 Team Status: Inactive Member Role/Relationship Status Dates Dr. Kenneth Becktet MD Primary Care Provider Active Start: May 28, 2025 End: May 28, 2025 Dr. Kenneth Beckett MD Referring Provider Active Start: May 28, 2025 End: May 28, 2025 ANGELITO Hammond Attending Provider Active St art: May 28, 2025 End: May 28, 2025 Team Status: Inactive Member Role/Relationship Status Dates Dr. Kenneth Beckett MD Primary Care Provider Active Start: June 18, 2025 End: June 18, 2025 ANGELITO Hammond Attending Provider Active St art: June 18, 2025 End: June 18, 2025 ANGELITO Hammond Referring Provider Active St art: June 18, 2025 End: June 18, 2025 Team Status: Active Member Role/Relationship Status Dates Dr. Kenneth Beckett MD Primary Care Provider Active Start: June 18, 2025 Dr. Arben Mcneil MD Attending Provider Active S tart: June 18, 2025 Bilingual Manager Relationship Specialty Start Date End Date Kenneth Beckett MD [address] [place], [place] [address] PCP - General Family Medicine 09/14/13 Yennifer Worrell, GORDO.DOCUMENT MANAGEMENT ANALYST [address] [place], [place] [id number] Branch Library Clerk Family Medicine 10/16/24 Hanh Sharma BEHAVIORAL HEALTH CLINICIAN.DOCUMENT MANAGEMENT ANALYST [address] [place], [place] [id number] [facility] 10/16/24 Bilingual Manager Relationship Specialty Start Date End Date Kenneth Beckett MD [address] [place], [place] [id number] PCP - General [facility] Medicine 09/14/13 Yennifer Worrell APRN.DOCUMENT MANAGEMENT ANALYST [address] [place], [place] [id number] [facility] 10/16/24 Hanh Sharma APRN.DOCUMENT MANAGEMENT ANALYST [address] [place], [place] [address] [facility] 10/16/24 Bilingual Manager Relationship Specialty Start Date End Date Kenneth Beckett MD [address] [place], [place] [id number] PCP - General [facility] Medicine 09/14/13 Yennifer Worrell BEHAVIORAL HEALTH CLINICIAN.DOCUMENT MANAGEMENT ANALYST [address] [place], [place] [id number] [facility] 10/16/24 Hanh Sharma BEHAVIORAL HEALTH CLINICIAN.DOCUMENT MANAGEMENT ANALYST [address] [place], [place] [address] [facility] 10/16/24 Scheduled Active and Recently Administ ered Medications (unrecognized section and content) Medication Order 09/03/2024 09/04/2024 09/05/2024 Cyclobenzaprine (FLEXERIL) tablet 10 mg (COMPLETED) 10 mg, Oral, ONCE, 1 dose, On Wed09/05/24 at 2100 2038 (Given - Provid er: Lalito Hernandez RN) Ketorolac (TORADOL) injection 30 mg (COMPLETED) 30 mg, Intramuscular, ONCE, 1 dose, On Wed09/05/24 at 2100 2040 (Given - Provid er: Lalito Hernandez RN) traMADol (ULTRAM) tablet 1 Each Oral, SEE ADMIN INSTRUCTIONS, Starting on Wed09/05/24 at 2057, Until Wed09/05/24 at 2315, Provide patient with 4 pack of Tramadol 50 mg, take 1 or 2 tabs by mouth every 4 hours as needed for pain. Nursing to document as GIVEN on the MAR and include comment of patient receipt of the 4 pack. 2106 (Given - Provid er: Lalito Hernandez RN - Comment: sent home with patient) Scheduled Medication Order 10/18/2024 10/19/2024 10/20/2024 acetaminophen (Tylenol) tablet 1,000 mg (COMPLETED) 1,000 mg, Oral, Once, On Wed10/20/24 at 0915, For 1 dose, Preprocedure, Administer 60 minutes prior to surgery. 44 (Given - Provid er: Fabiana Sanchez RN) ceFAZolin (Ancef) 2,000 mg in sodium chloride 0.9 % 100 mL IVPB (COMPLETED) 2,000 mg, IntraVENous, at 200 mL/hr, Administer over 30 Minutes, Tool Grinder to O.R., On Wed10/20/24 at 0915, For 1 dose, Preprocedure, Administer within 1 hour prior to incision. Recommend to repeat in 3-4 hours after initial dose if still intra-op. Mini-Bag Plus bag, Suspected Indication (Select all that apply): Surgical Prophylaxis 1157 (New Bag - Prov ider: Tayler Thomson, BEHAVIORAL HEALTH CLINICIAN - DIRECTOR OF MEDICAL SERVICES) famotidine (Pepcid) tablet 20 mg (COMPLETED)(Linked Group [...] Edinson Alanis MD) lidocaine-EPINEPHrine (Xylocaine W/EPI) 1 %-[id number] injection (CANCELED) As needed, Starting on Wed10/20/24 [...] sectionGoals may be documented in an alternate sectionGoals may be documented in an alternate sectionGoals may be documented in an alternate sectionGoals may be documented in an alternate sectionGoals may be documented in an [...] BE BASED ON THE PRIMARY CLINICAL RECORDS. [facility] provides no warranty or guarantee of the accuracy or completeness of information in this document.
[2025-08-02 21:49] LABS: Magnesium 2.1 mg/dL (1.5-2.2)
[2025-08-02 22:00] VITALS: BP 108/71; PULSE 109; RESP 18; O2SAT 95
[2025-08-02 22:26] VITALS: BP 108/71; PULSE 92; RESP 19; TEMP 36.6; O2SAT 96
== END 2025-08-02 22:36 | disposition home or self-care (01) ==
PROVIDERS: Emergency Provider Student in an Organized Health Care Education/Training Program; PCP Family Medicine; Visit Provider Student in an Organized Health Care Education/Training Program
DX: I48.0 Paroxysmal atrial fibrillation (principal); Z79.01 Long term (current) use of anticoagulants; R00.2 Palpitations; Z90.49 Acquired absence of other specified parts of digestive tract
CPT/HCPCS: 71045; 80048; 83735; 84443; 84484; 85025; 93005; 96360; 99284; A4216

== ENCOUNTER → 2025-08-31 | Outpatient (CLI) | payer OTHER, SELFPAY ==
--- NOTE | 2025-08-31 14:42 | ECHOD_ITS ---
Reason For Study Reason For Study: SOB Procedure This was a 2D Doppler, Color Flow transthoracic echocardiogram. Exam performed in department. Left Ventricle Normal LV size. The left ventricular ejection fraction is 65 %. No regional wall motion abnormalities noted. Right Ventricle Normal RV size. Normal systolic function. Atria Normal left atrium. Normal right atrium. Mitral Valve Normal mitral valve. Tricuspid Valve Normal tricuspid valve. Aortic Valve Normal aortic valve. Pulmonic Valve The pulmonic valve is not well visualized. Great Vessels Normal aortic root. The pulmonary artery is normal size. Normal inferior vena cava. Pericardium/Pleural No pericardial effusion. MMode/2D Measurements & Calculations RVDd: 4.1 cm Ao root diam: 3.9 cm LAV(MOD- bp): 89.8 ml LAV(MOD- bp) Indexed: 37.5 ml/m2 LAV(MOD- sp2): 92.3 ml LAV(MOD- sp4): 83.8 ml SV(MOD-sp4): 84.0 ml SV(sp4- el): 86.4 ml LVAd ap4: 33.9 cm2 LVLd ap4: 8.2 cm SI(MOD-sp4): 35.0 ml/m2 EDV(MOD-sp4): 116.7 ml EDV(sp4-el): 119.7 ml LVAs ap4: 15.5 cm2 LVLs ap4: 6.1 cm ESV(MOD-sp4): 32.7 ml ESV(sp4-el): 33.2 ml EF(MOD-sp4): 72.0 % EF(sp4-el): 72.2 % LA A4 area: 26.9 cm2 LA dimension(2D): 4.0 cm RA A4 area: 21.4 cm2 Time Measurements MV dec time: 0.19 sec Doppler Measurements & Calculations MV E max paulino: 71.7 cm/sec Lat Peak E' Paulino: 11.0 cm/sec Med Peak E' Paulino: 7.3 cm/sec MV A max paulino: 40.5 cm/sec E/E' lat: 6.5 E/E' med: 9.8 MV E/A: 1.8 MV V2 max: 98.6 cm/sec MV dec slope: 376.4 cm/sec2 Ao V2 max: 135.4 cm/sec MV max P.9 mmHg Ao max P.3 mmHg MV V2 mean: 42.4 cm/sec Ao V2 mean: 90.4 cm/sec MV mean P.97 mmHg Ao mean P.8 mmHg MV V2 VTI: 31.4 cm Ao V2 VTI: 31.5 cm AV (velocity ratio): 0.70 LV V1 max: 94.9 cm/sec PA V2 max: 102.9 cm/sec LV V1 max P.6 mmHg PA V2 mean: 73.0 cm/sec LV V1 mean P.9 mmHg LV V1 mean: 63.9 cm/sec LV V1 VTI: 22.1 cm ECHO/Echo Complete Interpretation Summary The left ventricular ejection fraction is 65 %. Normal LV size. No regional wall motion abnormalities noted. Ordering Physician: Shashi Yeh Referring Physician: Shashi Yeh Performed By: Ann Marie Overton RCS
== END | disposition home or self-care (01) ==
LOC: CVS 14:34
PROVIDERS: PCP Family Medicine; Referring Provider Student in an Organized Health Care Education/Training Program; Visit Provider Student in an Organized Health Care Education/Training Program
DX: R06.02 Shortness of breath (principal); I48.0 Paroxysmal atrial fibrillation
CPT/HCPCS: 93306

== ENCOUNTER → 2025-09-17 | Outpatient (CLI) | payer OTHER, SELFPAY ==
[2025-09-17 12:03] LABS: Hematocrit 43.0 % (40-54); Hemoglobin 14.6 g/dL (13.0-16.5); Immature Granulocytes Count 0.030 X10^3/uL (0.0-0.0); Mean Corp Hgb Conc 34.0 g/dL (32-36); Mean Corpuscular Volume 92.9 fL (80-94); Mean Platelet Vol. 10.7 fl (6.2-12.0); NRBC Flagged by Analyzer 0 % (0-5); Platelet Count 224 K/mm3 (150-450); RBC Distribution Width CV 13.7 % (11.6-14.6); RBC Distribution Width SD 46.5 fl (35.1-43.9); Red Blood Count 4.63 M/mm3 (4.6-6.2); White Blood Count 6.5 K/mm3 (4.4-11.0)
[2025-09-17 12:58] LABS: Anion Gap 8 (5-15); BUN 16 mg/dL (4-19); BUN/Creat Ratio 18.4 RATIO (10-20); Calcium,Total 9.4 mg/dL (7.6-11.0); Carbon Dioxide 25.8 mmol/L (21.0-32.0); Chloride 103 mmol/L (98-108); Glucose 90 mg/dL (70-99); Potassium 4.1 mmol/L (3.3-5.1); Pro- Brain NATRIURETIC PEPTIDE 109 pg/mL (<=900)
== END | disposition home or self-care (01) ==
LOC: LAB 11:26
PROVIDERS: PCP Family Medicine; Referring Provider Student in an Organized Health Care Education/Training Program; Visit Provider Student in an Organized Health Care Education/Training Program
DX: R06.02 Shortness of breath (principal)
CPT/HCPCS: 36415; 80048; 83880; 85025